=== PATIENT | male | born 1945 | race Caucasian/White ===

== ENCOUNTER 2019-07-30 01:21 | Outpatient (CLI) | payer MEDICARE, OTHER, SELFPAY ==
--- NOTE | 2019-09-08 08:35 | W.CARDEVENT ---
Cardiac Event Recorder Cardiac Event Note: This is a 30-day event monitor worn for the indication of cardiomyopathy. ?The majority of the time patient was in normal sinus rhythm with an average heart rate of 70 bpm. ?There were 9 episodes of nonsustained ventricular tachycardia. The longest run was 14 beats (150 bpm). ?Manually triggered events were associated with sinus rhythm and occasional PVCs, PACs. ?There were no episodes of supraventricular tachycardia or atrial fibrillation. ?There were no pauses greater than 3 seconds and no episodes of high degree AV block.
== END 2019-07-30 01:41 ==
PROVIDERS: PCP Family Medicine; Visit Provider Family Medicine
DX: I42.9 Cardiomyopathy, unspecified (principal); R27.0 Ataxia, unspecified; I47.2 Ventricular tachycardia; I49.3 Ventricular premature depolarization
CPT/HCPCS: 93270

== ENCOUNTER 2019-09-08 08:35 | Outpatient (CLI) | payer MEDICARE, OTHER, SELFPAY | END 2019-09-08 08:55 | PROVIDERS: PCP Family Medicine; Referring Provider Family Medicine; Visit Provider Internal Medicine Cardiovascular Disease | DX: I42.9 Cardiomyopathy, unspecified (principal); I47.2 Ventricular tachycardia; I49.3 Ventricular premature depolarization | CPT/HCPCS: 93228 ==

== ENCOUNTER 2020-06-07 16:01 | Emergency (ER) | payer MEDICARE, OTHER, SELFPAY ==
[2020-06-07] VITALS (29 sets, daily range): BP systolic 97–121; BP diastolic 50–66; PULSE 58–65; RESP 11–22; TEMP 36.5–36.6; O2SAT 90–99
--- NOTE | 2020-06-07 16:00 | RT.EKG_ITS ---
APPROVED REPORT Exam: Resting ECG Patient Location: E HR:60 bpm ECG Measurements Heart Rate 60 AXIS ND 237 P 8 QRSd 101 QRS -42 QT 451 T 30 QTc 449 <Conclusion> Sinus rhythm...normal P axis, V-rate 60- 99 Prolonged ND interval...ND >220, V-rate 50- 90 Left anterior fascicular block...axis(240,-40), init forces inf Low voltage, extremity and precordial leads...extremity<0.5mV, precordial<1.0mV I have reviewed and interpreted ECG and agree with software generated interpretation.
--- NOTE | 2020-06-07 16:15 | DI.RAD_ITS ---
EXAM: XR CHEST 2V PA LATERAL CLINICAL HISTORY: fall TECHNIQUE: 2D digital imaging was performed. COMPARISON: No exams were available for comparison FINDINGS: MEDIASTINUM: Normal. HEART: Normal. PULMONARY VASCULATURE: Normal. LUNGS: Clear. PLEURAL SPACE: No pleural effusion or pneumothorax. BONE:Normal. OTHER FINDINGS:Normal. IMPRESSION: No acute pulmonary findings. DATA REPOSITORY: RADIATION DOSE DELIVERED:
--- NOTE | 2020-06-07 16:15 | DI.CT_ITS ---
EXAM: CT HEAD CERVICAL SPINE WO CLINICAL HISTORY: fall from standing, struck back of head. TECHNIQUE: Imaging Protocol: Axial computed tomography images with coronal and sagittal reformatted images were created and reviewed COMPARISON: CT HEAD WITHOUT CONTRAST from 10/24/2013 FINDINGS: CT Head: Ventricles and Extra axial spaces: Normal in size and morphology for the patient's age. Hemorrhage: None. Cerebral parenchyma: There are areas of decreased attenuation in the white matter consistent with sma ll vessel ischemic disease. No acute territorial infarct is seen. Midline shift: None. Brainstem/Cerebellum: Normal. Calvarium: Normal. Visualized Paranasal sinuses/Mastoids: Clear. Soft Tissues: Unremarkable. CT Cervical Spine: Bones: No acute fracture or subluxation. Severe degenerative changes are seen throughout the cervical spine. Soft Tissues: Unremarkable. Lung Apices: Clear. IMPRESSION: 1. No acute intracranial process. 2. No acute fracture or subluxation in the cervical spine. RADIATION DOSE DELIVERED: Total DLP DATA REPOSITORY: All CT scans at this facility are submitted to the National Radiology Data Registry (NRDR) Dose Index Registry (DIR) with the [employer] (A[employer]). RADIATION OPTIMIZATION: All CT scans at this facility use at least one of these dose optimization te chniques: automated exposure control; mA and/or kV adjustment per patient size (includes targeted exa ms where dose is matched to clinical indication); or iterative reconstruction.
--- NOTE | 2020-06-07 16:15 | DI.RAD_ITS ---
EXAM: XR SACRUM COCCYX CLINICAL HISTORY: fall. TECHNIQUE: 2D digital imaging was performed. COMPARISON: No exams were available for comparison FINDINGS: No definite acute fracture or dislocation is identified. The bones appear normally mineralized. Degen erative changes are seen in the lower lumbar spine. If there is continued clinical concern, non-contr ast CT scan of the pelvis should be considered for further evaluation. IMPRESSION: DATA REPOSITORY: RADIATION DOSE DELIVERED:
--- NOTE | 2020-06-07 16:19 | ED.GENADUL_ITS ---
Discharge Plan Disposition Patient Disposition: HOME Condition: Good Discharge Details Chief Complaint: Trauma Clinical Impression: Closed sacral fracture Primary Care Provider: Deepa Oliva V ED Provider: Julianna Funes Home Meds and New Rx's Prescriptions: New oxycodone 5 mg tablet 5 mg PO TID PRN (Reason: pain) Qty: 10 RF: 0 Continued triamcinolone acetonide 0.1 % cream 1 applic TP BID RF: 0 fluticasone propion-salmeterol [Advair HFA] 115-21 mcg/actuation HFA aerosol inhaler 2 puff IH BID RF: 0 carvedilol 25 mg tablet 25 mg PO BID RF: 0 tamsulosin 0.4 MG capsule 0.4 mg PO BID RF: 0 omeprazole 20 MG capsule,delayed release(DR/EC) 20 mg PO DAILY AM RF: 0 aspirin [Aspir-Low] 81 MG tablet,delayed release (DR/EC) 81 mg PO DAILY AM RF: 0 [id number]-byvnr acid-lutein [Centrum Silver] 1 EACH tablet,chewable 1 tab PO DAILY AM RF: 0 albuterol sulfate [Proventil HFA] 1 PUFF HFA aerosol inhaler 2 gm Inhalation DIRECTED Qty: 1 RF: 3 albuterol sulfate 2.5 MG/3 ML solution for nebulization 2.5 mg NEB Q4H PRNRF: 0 spironolactone 25 MG tablet 25 mg PO DAILY RF: 0 furosemide [Lasix] 80 MG tablet 80 mg PO DAILY RF: 0 lisinopril [Prinivil] 5 MG tablet 5 mg PO DAILY RF: 0 fluoxetine 20 MG capsule 20 mg PO DAILY RF: 0 ascorbic acid (vitamin C) [Vitamin C With Dejah Hips] 1,000 MG tablet 1 tab PO PRN PRNRF: 0 saw palmetto 500 MG capsule 450 mg PO PRN PRNRF: 0 vitamin B comp with C no.4 [Super B Complex + C] 150 MG tablet 1 tab PO PRN PRNRF: 0 pravastatin 40 MG tablet 40 mg PO QPM RF: 0 fluticasone propion-salmeterol [Advair HFA] 12 GM HFA aerosol inhaler 2 puff Inhalation BID RF: 0 oxycodone 5 MG tablet 5 mg PO Q6H PRNRF: 0 cyclobenzaprine 10 MG tablet 10 mg PO HS RF: 0 magnesium oxide 400 MG tablet 400 mg PO DAILY Qty: 30 RF: 0 cyanocobalamin (vitamin B-12) 1,000 MCG tablet 1,000 mcg PO DAILY Qty: 100 RF: 0 levothyroxine [Synthroid] 25 MCG tablet 50 mcg PO DAILY Qty: 30 RF: 0 cyanocobalamin (vitamin B-12) 1,000 mcg/mL Solution 1,000 mcg SUBCUT QMONTH RF: 0 metformin 500 mg tablet extended release 24 hr 500 mg PO DAILY PRN PRNRF: 0 Discharge Instructions Instructions: Sacral Fracture (ED) Additional Instructions: Encourage water intake. Gentle stretching. Please avoid heavy lifting. Tylenol and/or ibuprofen as needed for discomfort. Oxycodone as prescribed. Please not drive will take this medication. Use only as needed. If you develop fever/chills, sensation changes, weakness, change in bladder or bowel function or other new/worsening symptom please seek care urgently once again. Otherwise, please contact your primary care tomorrow to schedule follow-up for reevaluation in 1 week. Referrals: Deepa Oliva MD [Primary Care Provider] - Discharge Data Discharge Date/Time-TO BE ENTERED AT DEPARTURE: 06/07/20 19:55 Medical Decision Making Patient is a pleasant 74-year-old gentleman presenting today with chief complaint of fall. States that prior to arrival he suffered a mechanical fall. He reports that he was standing in his kitchen when he turned quickly, lost his balance and fell striking his head against the cabinets. States his primary source of discomfort is his tailbone. He believes that he may have lost consciousness and is endorsing a mild headache. Is also endorsing neck pain, c- collar was placed by nursing staff. Does not note any weakness. Did have difficulty getting out of the car secondary to pain in his tailbone. However, he was able to ambulate to the car unassisted. He denies any chest pain, nausea, vomiting, abdominal pain. Patient is not anticoagulated. He is on aspirin. Past medical history significant for COPD, hypertension, BPH, hyperlipidemia, diabetes, CAD, CHF. On exam, patient's laying supine, in a c-collar. He appears anxious. He has no head trauma on palpation or exam, no pain to palpation. Neurologic exam is intact. No chest, abdomen, pelvic discomfort with palpation. Sensation is intact, no saddle paresthesias. Is good strength in his lower extremities, equal bilaterally. Negative straight leg raise bilaterally. Patient has no midline tenderness on my cervical exam but did have this on nursing exam. Will obtain CT of head and neck for further evaluation. No pain with palpation over the thoracic or lumbar spine. Patient is exquisitely tender over the coccyx. Sensation is intact over this area as well as sensation over the rectum. Will obtain x-rays of these areas. CT reviewed by radiologist: FINDINGS: Brain: Global cerebral atrophy is consistent with patient's age. Decreased attenuation within the white matter tracts of both cerebral hemispheres is nonspecific but typically seen with small vessel disease/chronic white matter ischemic changes of aging. No intracranial hemorrhage or mass effect. No acute stroke. Ventricles: Unremarkable. No ventriculomegaly. Bones/joints: Unremarkable. No acute fracture. Sinuses: Visualized sinuses are unremarkable. No fluid levels. Mastoid air cells: Visualized mastoid air cells are well aerated. Soft tissues: Unremarkable. IMPRESSION: No acute abnormality. FINDINGS: Vertebrae: No fracture or subluxation is identified. The facet joints are intact. Discs/Spinal canal/Neural foramina: Degenerative disc disease and facet arthrosis is present throughout the cervical spine. No bony spinal stenosis is identified. Soft tissues: Unremarkable. Lungs: Lung apices are clear. IMPRESSION: No fracture or subluxation. Delay in x-ray, chose to wait for CT results prior to getting patient up. With the CT without abnormality, clnically examed the patient. He is now denying any midline pain, no pain with ROM of cervical spine, collar cleared. FINDINGS/IMPRESSION: There is a very subtle cortical step-off deformity at the proximal aspects of the sacrum which could be anatomical versus related to a minimally displaced fracture. And additional cortical step-off deformity is also appreciated at the distal aspects of the sacrum with an associated linear lucency traversing the sacral vertebra, highly concerning for a distal sacral/coccygeal fracture at this level. Consider further evaluation with noncontrast pelvic CT. No other acutely displaced fractures are appreciated. No significant soft tissue swelling FINDINGS: Lungs: Unremarkable. No consolidation. Pleural space: Unremarkable. No pleural effusion. No pneumothorax. Heart/Mediastinum: Unremarkable. No cardiomegaly. Bones/joints: No acute abnormality or aggressive osseous lesion. IMPRESSION: Negative for acute thoracic pathology. I did go out multiple times to speak with the patient's , Ailyn, kept her updated. She did witness the fall. States that he initially sat on his bottom then hit his head on the kitchen cabinet. Reinforces mechanical fall. She does not believe he lost consciousness, rather feels that he was dazed for a moment, she did not notice a lapse in mentation. Discussed fidnings with the patient. At this time, he wants to go home. He is feeling much improved. As a nondisplaced fracture would not change our management at this time, will hold off on CT. Salvador diagnosed with fracture. He is ambulating well about the [facility] with minimal discomfort. Discussed with patient and his . She is going ot pick him up a donus pillow. We discussed pain management. He received QHS PRN oxycodone which works well for him. She states he rarely uses this medication, will prescribe short course as he is almost out. We discussed risks of this medication. He will not drive while taking this. He will first try non-narcotic options for pain control. I encouraged light movement. We discussed pain management techniques. I advised close f/u with PCP this week for reevaluation. He was given strict return precautions. All of their quesitons and concerns were addressed, they are in agreement iwth this plan. HPI General Mode of arrival: wheelchair . Date/Time Provider Initiated Documentation: 06/07/20 16:02 . Limitations to Documentation: no limitations . Information obtained by: patient and RN notes reviewed . History of Present Illness 74 year old M presents to the emergency department with the chief complaint of Pain after fall, described as severe, Quality is described as aching, and is localized to the head, neck and buttocks. Patient reports no radiation. Patient started experiencing this minute(s) and it has been constant. Immobilization improves symptom(s), Movement worsens symptoms . Patient notes chest pain and headaches; denies cough, fever/chills, loss of appetite, nausea/vomiting, rash, shortness of breath, syncope (Prior to the mechanical fall but did suffer loss of consciousness) and weakness. Patient did receive the following treatments prior to arrival, none Related Data Home Medications Medication Instructions Recorded Confirmed albuterol sulfate [Proventil HFA] 2 gm INHALATION DIRECTED #1 inh 09/01/13 06/07/20 aspirin [Aspir-Low] 81 mg PO DAILY AM 09/01/13 06/07/20 gn-ebo-cazha acid-lutein [Centrum 1 tab PO DAILY AM 09/01/13 06/21/17 Silver] omeprazole 20 mg PO DAILY AM 09/01/13 06/07/20 tamsulosin 0.4 mg PO BID 09/01/13 06/07/20 albuterol sulfate 2.5 mg NEB Q4H PRN 10/21/13 06/07/20 furosemide [Lasix] 80 mg PO DAILY 11/11/13 06/07/20 lisinopril [Prinivil] 5 mg PO DAILY 11/11/13 06/07/20 spironolactone 25 mg PO DAILY 11/11/13 06/07/20 fluoxetine 20 mg PO DAILY 12/09/14 06/07/20 ascorbic acid (vitamin C) [Vitamin 1 tab PO PRN PRN 01/21/15 06/07/20 C With Dejah Hips] saw palmetto 450 mg PO PRN PRN 01/21/15 06/21/17 vitamin B comp with C no.4 [Super 1 tab PO PRN PRN 01/21/15 06/21/17 B Complex + C] cyanocobalamin (vitamin B-12) 1,000 mcg PO DAILY #100 tablet 03/28/17 06/07/20 cyclobenzaprine 10 mg PO HS 03/28/17 06/07/20 fluticasone propion-salmeterol 2 puff INHALATION BID 03/28/17 06/21/17 [Advair HFA] levothyroxine [Synthroid] 50 mcg PO DAILY #30 03/28/17 06/07/20 magnesium oxide 400 mg PO DAILY #30 tab 03/28/17 06/21/17 oxycodone 5 mg PO Q6H PRN 03/28/17 06/07/20 pravastatin 40 mg PO QPM 03/28/17 06/07/20 carvedilol 25 mg tablet 25 mg PO BID 08/22/18 06/07/20 fluticasone propionate 115 2 puff IH BID 08/22/18 08/22/18 mcg-salmeterol 21 mcg/actuation HFA inhaler triamcinolone acetonide 0.1 % 1 applic TP BID 08/22/18 06/07/20 topical cream cyanocobalamin (vitamin B-12) 1,000 mcg SUBCUT QMONTH 06/07/20 06/07/20 metformin 500 mg PO DAILY PRN PRN 06/07/20 06/07/20 oxycodone 5 mg PO TID PRN #10 tab 06/07/20 Previous Rx's Medication Instructions Recorded albuterol sulfate [Proventil HFA] 2 gm INHALATION DIRECTED #1 inh 09/01/13 cyanocobalamin (vitamin B-12) 1,000 mcg PO DAILY #100 tablet 03/28/17 levothyroxine [Synthroid] 50 mcg PO DAILY #30 03/28/17 magnesium oxide 400 mg PO DAILY #30 tab 03/28/17 oxycodone 5 mg PO TID PRN #10 tab 06/07/20 Allergies Allergy/AdvReac Type Severity Reaction Status Date / Time Penicillins Allergy Severe Anaphylaxsi Unverified 06/07/20 16:14 s donepezil [From Aricept] Allergy Mild mild per Unverified 06/07/20 17:03 pcp chart adenosine Allergy Unverified 06/07/20 16:14 metformin [From Glucophage] Allergy per pcp Unverified 06/07/20 17:03 chart--moderate codeine AdvReac Intermediate Dizziness/L Unverified 06/07/20 16:14 ightheade General Stated Complaint: Trauma DANIEL: 2 Review of Systems Constitutional Constitutional: Reports as per HPI, Denies chills, Denies fatigue, Denies fever(s), Reports headache(s) and Denies weakness Eyes Eyes: Reports as per HPI, Denies blurry vision, Denies change in vision and Denies loss of vision ENT Ears, Nose, Mouth, and Throat: Denies abnormal hearing and Reports headache(s) Cardiovascular Cardiovascular: Reports as per HPI, Denies chest pain and Denies dyspnea Respiratory Respiratory: Reports as per HPI, Denies cough, Denies pain on inspiration, Denies pain with cough and Denies dyspnea Gastrointestinal Gastrointestinal: Reports as per HPI, Denies abdominal pain, Denies nausea and Denies vomiting Genitourinary Genitourinary: Reports as per HPI and Denies urinary incontinence Musculoskeletal Musculoskeletal: Reports as per HPI and Reports abnormal gait (states severe pain in tailbone with ambulation) Integumentary/Breasts Skin/Breast: Reports as per HPI and Denies rash Neurologic Neurologic: Reports as per HPI, Denies abnormal hearing, Denies abnormal movements, Denies abnormal speech, Reports abnormal gait (states severe pain in tailbone with ambulation), Reports headache(s), Denies lack of coordination, Denies localized weakness, Denies loss of vision, Denies seizure-like activity, Denies paresthesias and Denies weakness Endocrine Endocrine: Denies fatigue [facility] Medical History (Updated 06/07/20 @ 19:49 by BEKAH Plasencia) Mena's palsy CAD (coronary artery disease) Cardiomyopathy CHF (congestive heart failure) COPD (chronic obstructive pulmonary disease) DM (diabetes mellitus) HTN (hypertension) Hypothyroidism ORLIN (obstructive sleep apnea) Renal insufficiency Surgical History (Updated 08/09/16 @ 10:14 by Beatriz Alatorre) Appendectomy Colonoscopy - MAC (08/04/16) Family History (Updated 07/14/16 @ 15:00 by BEKAH Sandoval) Father No problems noted. Other Colon cancer Social History (Updated 08/22/18 @ 15:42 by Emilie Salmon LPN) Smoking/Tobacco Use Status: Former Tobacco Use Drug use: Never Do you feel safe in your relationship?: Yes Exam Const General: cooperative, healthy appearing, uncomfortable, no acute distress, well developed, well groomed and anxious Nutritional Appearance: well nourished and overweight Orientation: alert, awake and oriented x3 HENMT Head: normal to inspection, no palpable skull fracture, normocephalic and atraumatic Ears: hearing grossly normal bilaterally, external ears normal and TM's normal bilaterally General nose exam: external nose normal Face and sinus: normal facial exam Mouth: oral mucosae normal, lip normal and tongue normal Throat: posterior oropharynx normal Eyes General: appearance normal, both eyes and all related structures Visual Howard: normal visual howard by confrontation Alignment and Position: alignment normal Periorbital: periorbital findings normal Eyelids: eyelids normal Conjunctivae: conjunctivae normal Pupils: PERRL EOM: EOM intact bilaterally Neck Neck: normal visual inspection, limited ROM (patient in collar), no lymphadenopathy, trachea midline and supple Chest Chest: normal inspection of the chest, normal palpation of entire chest wall, no crepitus and no localized rib tenderness Resp Effort & Inspection: normal respiratory effort, able to speak in complete sentences and no respiratory distress Auscultation: clear to auscultation bilaterally, no rales, no rhonchi and no wheezes Cardio Rate: regular rate Rhythm: regular rhythm Heart Sounds: S1 normal and S2 normal GI Inspection: normal to inspection, no abdominal wall ecchymosis, no edema and non-distended Palpation: soft, no hepatosplenomegaly, not firm, no guarding, no pulsatile masses, not rigid and nontender Auscultation: normal bowel sounds Rectal Exam: visual inspection normal (sensation normal, wink intact) Back/Spine/Pelvis Back: no CVA tenderness Cervical Spine: normal cervical lordosis and cervical ROM normal Thoracic/Lumbar Spine: thoracic and lumbar spine normal to inspection, No thor aco-lumbar spasm, No thoracic spinal tenderness and No lumbar spinal tenderness Pelvis: no pain with anterior-posterior compression and no pain with lateral compression Sacroiliac joints: bilaterally nontender Sacrum: no ecchymosis, no erythema, no swelling and tenderness midline (inferior) Coccyx: no swelling and tenderness on direct palpation Skin General skin exam: no rashes or lesions noted Lesions: no lesions Rashes: no rashes Trauma: no lacerations or abrasions Wounds: no wounds Neuro General: patient alert, patient awake, patient oriented x3, gait normal, tone normal and moves all extremities Cranial Nerves: CN's II-XI intact bilaterally Cognition: normal cognition Speech: speech normal Motor: muscle tone normal throughout, strength 5/5 throughout, no pronator drift, no movement abnormalities noted and no fasciculations Sensory Exam: no sensory deficits noted (no saddle paresthesias) Coordination: glcwax-nm-cswj test normal Extrem General: normal to inspection, full ROM, capillary refill normal, no pedal edema and no calf tenderness Psych Appearance: grossly normal and well kempt Mental Status: mental status grossly normal Speech and Movement: speech and movement normal Course Vital Signs Vital signs: Vital Signs Temperature 36.5 C 06/07/20 16:08 Pulse 64 06/07/20 16:08 Respiratory Rate 20 06/07/20 16:08 Pulse Oximetry 96 06/07/20 16:08 Temperature 36.5 C 06/07/20 16:08 Temperature Source Temporal Artery Scan 06/07/20 16:08 Pulse 64 06/07/20 16:08 Respiratory Rate 20 07/20/20 16:08 Respiratory Effort Non-Labored 06/07/20 16:12 Blood Pressure Position Supine 06/07/20 16:08 Pulse Oximetry 96 06/07/20 16:08 Oxygen Delivery Method Room Air 06/07/20 16:08 Oxygen Flow Rate 0 06/07/20 16:08
[2020-06-07 16:37] LABS: Abs Immature Grans 0.01 k/cumm (0.0-0.09); Absolute Basophil Count 0.01 k/cumm (0.0-0.2); Absolute Eosinophil Count 0.13 k/cumm (0.0-0.7); Absolute Lymphocyte Count 1.85 k/cumm (1.2-3.4); Absolute Monocyte Count 0.88 k/cumm (0.11-0.7); Absolute Neutrophil Count 4.48 k/cumm (1.2-6.7); Basophils % 0.1; Eosinophils % 1.8; HCT 38.8 % (40.0-50.0); HGB 13.2 g/dL (13.5-17.5); Immature Grans % 0.1 %; Lymphocytes % 25.1; Mean Platelet Volume 10.1 fL (8.0-11.0); Neutrophils % 60.9; Platelet Count 216 x1000/uL (130-400); RBC Distribution Width 12.5 % (11.8-14.1); White Blood Cell Count 7.36 k/cumm (4.4-10.8)
[2020-06-07] MEDS: ACETAMINOPHEN 1,000 MG/100 ML BTL 400 MG IVPB (16:38)
[2020-06-07] MEDS: Normal Saline Flush 10 ML SYR IVP (16:39)
[2020-06-07] MEDS: Lactated Ringers 1,000 ML 150 ML IV (16:39)
[2020-06-07 16:51] LABS: PTT Activated 23.2 sec (21.0-31.4); Prothrombin Time 10.1 sec (9.3-11.0)
[2020-06-07 16:58] LABS: ALT 42 U/L (16-63); AST 31 U/L (15-37); Albumin 3.9 g/dL (3.4-5.0); Alkaline Phosphatase 72 U/L (46-116); Anion Gap 9.6 mmol/L (3-11); BUN 22 mg/dL (7-18); Bilirubin, Total 0.5 mg/dL (0.2-1.0); CO2 28.4 mmol/L (21.0-32.0); CREATININE 1.21 mg/dL (0.70-1.30); Calcium 9.4 mg/dL (8.5-10.1); Chloride 101 mmol/L (98-107); Estimated GFR 58.46 (mL/min/1.73m2); Glucose 136 mg/dL (74-106); Sodium 139 mmol/L (136-145); Total Protein 7.3 g/dL (6.4-8.2)
[2020-06-07 16:59] LABS: Troponin I < 0.05 ng/mL (<0.06)
--- NOTE | 2020-06-07 17:51 | DI.VRAD_ITS ---
PROCEDURE INFORMATION: Exam: CT Head Without Contrast Exam date and time: 06/07/2020 4:22 PM Age: 74 years old Clinical indication: Other: Fall from standing struck back of head TECHNIQUE: Imaging protocol: Computed tomography of the head without contrast. COMPARISON: CT HEAD WITHOUT CONTRAST 10/24/2013 11:11 AM FINDINGS: Brain: Global cerebral atrophy is consistent with patient's age. Decreased attenuation within the white matter tracts of both cerebral hemispheres is nonspecific but typically seen with small vessel disease/chronic white matter ischemic changes of aging. No intracranial hemorrhage or mass effect. No acute stroke. Ventricles: Unremarkable. No ventriculomegaly. Bones/joints: Unremarkable. No acute fracture. Sinuses: Visualized sinuses are unremarkable. No fluid levels. Mastoid air cells: Visualized mastoid air cells are well aerated. Soft tissues: Unremarkable. IMPRESSION: No acute abnormality. PROCEDURE INFORMATION: Exam: CT Cervical Spine Without Contrast Exam date and time: 06/07/2020 4:22 PM Age: 74 years old Clinical indication: Other: Fall from standing struck back of head TECHNIQUE: Imaging protocol: Computed tomography images of the cervical spine without contrast. COMPARISON: CT HEAD WITHOUT CONTRAST 10/24/2013 11:11 AM FINDINGS: Vertebrae: No fracture or subluxation is identified. The facet joints are intact. Discs/Spinal canal/Neural foramina: Degenerative disc disease and facet arthrosis is present throughout the cervical spine. No bony spinal stenosis is identified. Soft tissues: Unremarkable. Lungs: Lung apices are clear. IMPRESSION: No fracture or subluxation. Dictated and Authenticated by: Monroe Marte MD. Ordering:LAVELL Levine MD
--- NOTE | 2020-06-07 19:05 | DI.VRAD_ITS ---
PROCEDURE INFORMATION: Exam: XR Sacrum and Coccyx, 2 or More Views Exam date and time: 06/07/2020 6:28 PM Age: 74 years old Clinical indication: Other: Fall TECHNIQUE: Imaging protocol: XR of the sacrum and coccyx, 2 or more views. COMPARISON: No relevant prior studies available. FINDINGS/IMPRESSION: There is a very subtle cortical step-off deformity at the proximal aspects of the sacrum which could be anatomical versus related to a minimally displaced fracture. And additional cortical step-off deformity is also appreciated at the distal aspects of the sacrum with an associated linear lucency traversing the sacral vertebra, highly concerning for a distal sacral/coccygeal fracture at this level. Consider further evaluation with noncontrast pelvic CT. No other acutely displaced fractures are appreciated. No significant soft tissue swelling. Dictated and Authenticated by: Pan Gutiérrez MD. Ordering:LAVELL Levine MD
--- NOTE | 2020-06-07 19:07 | DI.VRAD_ITS ---
PROCEDURE INFORMATION: Exam: XR Chest, 2 Views Exam date and time: 06/07/2020 6:40 PM Age: 74 years old Clinical indication: Other: Fall TECHNIQUE: Imaging protocol: XR of the chest Views: 2 views. COMPARISON: SC PORTABLE CHEST ONE VIEW 03/27/2017 6:42 PM FINDINGS: Lungs: Unremarkable. No consolidation. Pleural space: Unremarkable. No pleural effusion. No pneumothorax. Heart/Mediastinum: Unremarkable. No cardiomegaly. Bones/joints: No acute abnormality or aggressive osseous lesion. IMPRESSION: Negative for acute thoracic pathology. Dictated and Authenticated by: Pan Gutiérrez MD. Ordering:LAVELL Levine MD
== END 2020-06-07 19:55 | disposition home or self-care (01) ==
LOC: ER 20:04
PROVIDERS: Emergency Provider Physician Assistant; PCP Family Medicine
DX: S32.19XA Other fracture of sacrum, initial encounter for closed fracture (principal); W01.198A Fall on same level from slipping, tripping and stumbling with subsequent striking against other object, initial encounter; Y92.000 Kitchen of unspecified non-institutional (private) residence as the place of occurrence of the external cause; R51 Headache; J44.9 Chronic obstructive pulmonary disease, unspecified; Z87.891 Personal history of nicotine dependence; E11.9 Type 2 diabetes mellitus without complications; Z79.84 Long term (current) use of oral hypoglycemic drugs; I11.0 Hypertensive heart disease with heart failure; I50.9 Heart failure, unspecified
CPT/HCPCS: 80053; 93005; 96374; 99285; 70450; 71046; 72125; 72220; 83735; 84484; 85025; 85610; 85730; 93010; 99284; J0131; L0172

== ENCOUNTER 2020-06-13 18:44 | Emergency (ER) | payer MEDICARE, OTHER, SELFPAY ==
--- NOTE | 2020-06-16 07:45 | NUR.NOTE ---
Nursing Note: Patient transferred last night to [facility]. They called this morning requesting the 26 and 20 records. They want to review prior to giving the patient heparin. I faxed the provider notes and DI reports from that visit. Disha Valdez
== END 2020-06-13 18:55 ==
LOC: ER 18:46
PROVIDERS: PCP Family Medicine
DX: Z53.21 Procedure and treatment not carried out due to patient leaving prior to being seen by health care provider (principal)

== ENCOUNTER 2020-06-13 18:49 | Observation (INO) | payer MEDICARE, OTHER, SELFPAY ==
[2020-06-13] VITALS (41 sets, daily range): BP systolic 94–135; BP diastolic 47–79; PULSE 61–75; RESP 10–22; TEMP 35.3; O2SAT 93–99
--- NOTE | 2020-06-13 18:45 | RT.EKG_ITS ---
APPROVED REPORT Exam: Resting ECG Patient Location: E HR:61 bpm ECG Measurements Heart Rate 61 AXIS ID 201 P -41 QRSd 103 QRS -46 QT 459 T 14 QTc 461 <Conclusion> Sinus rhythm...normal P axis, V-rate 60- 99 Left anterior fascicular block...axis(240,-40), init forces inf Low voltage, extremity and precordial leads...extremity<0.5mV, precordial<1.0mV Anteroseptal infarct, old...Q >40mS, V1-V2 Abnormal Electrocardiogram
--- NOTE | 2020-06-13 19:00 | DI.CT_ITS ---
EXAM: CT CHEST PE CTA CLINICAL HISTORY: chest pain, left. TECHNIQUE: Imaging Protocol: Axial CT angiography was performed with multi-slice acquisition and mu lti-planar and/or 3D reconstructions. CONTRAST MATERIAL: Intravenous: Omnipaque 350 Contrast volume:83 ml COMPARISON: CT CHEST FOR PULMONARY EMBOLUS from 03/27/2017 FINDINGS: Pulmonary Arteries: No evidence of filling defect to suggest pulmonary emboli. Tracheobronchial tree: Patent where visualized. Mediastinum and Colleen: No dominant adenopathy or fluid collection. Pulmonary parenchyma: No consolidation. Stable 7 millimeter right upper lobe nodule. Dependent hilarai nges posteriorly. Pleura: No effusion or pneumothorax. Heart: The heart is not dilated. Mild coronary artery calcifications are seen. Aorta: Thoracic aorta non-dilated. Upper abdomen: Unremarkable. Bones: Degenerative changes in the spine. IMPRESSION: No evidence of pulmonary embolism or other acute abnormality.. RADIATION DOSE DELIVERED: Total DLP DATA REPOSITORY: All CT scans at this facility are submitted to the National Radiology Data Registry (NRDR) Dose Index Registry (DIR) with the [employer] (ACR). RADIATION OPTIMIZATION: All CT scans at this facility use at least one of these dose optimization te chniques: automated exposure control; mA and/or kV adjustment per patient size (includes targeted exa ms where dose is matched to clinical indication); or iterative reconstruction.
[2020-06-13 19:07] LABS: Abs Immature Grans 0.01 k/cumm (0.0-0.09); Absolute Basophil Count 0.01 k/cumm (0.0-0.2); Absolute Eosinophil Count 0.17 k/cumm (0.0-0.7); Absolute Lymphocyte Count 1.14 k/cumm (1.2-3.4); Absolute Monocyte Count 0.71 k/cumm (0.11-0.7); Absolute Neutrophil Count 6.94 k/cumm (1.2-6.7); Basophils % 0.1; Eosinophils % 1.9; HCT 41.2 % (40.0-50.0); HGB 13.9 g/dL (13.5-17.5); Immature Grans % 0.1 %; Lymphocytes % 12.7; Mean Corp. HGB Concentration 33.7 g/dL (32.0-36.0); Mean Corpuscular Hemoglobin 32.6 pg (27.0-33.0); Mean Corpuscular Volume 96.7 fL (80-95); Mean Platelet Volume 9.9 fL (8.0-11.0); Monocytes % 7.9; Neutrophils % 77.3; Platelet Count 206 x1000/uL (130-400); RBC 4.26 m/cumm (4.50-6.00); RBC Distribution Width 12.4 % (11.8-14.1); White Blood Cell Count 8.98 k/cumm (4.4-10.8)
--- NOTE | 2020-06-13 19:09 | W.ED.GENAD ---
Discharge Plan Disposition Patient Disposition: [facility] INPATIENT Condition: Good Discharge Details Chief Complaint: Chest Pain Clinical Impression: Chest pain Admit Date/Time: 06/13/20 22:30 Admit Provider: Aziza Arias Attending Provider: Aziza Arias Primary Care Provider: Deepa Oliva V ED Provider: Reji Byrnes Hospital Course Hospital Course: 74 year old male with PMHx of CAD s/p 2 prior cardiac caths (last one in 2012 at [facility] with clean coronary arteries, no stents in place), as well as h/o biventricular heart failure with latest EF of 56% in 2018 (from 15% in 2013), 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 The pain was accompanied by feeling of weakness/fatigue, dizziness, shortness of breath, nausea, dry heaves, and diaphoresis. The patient is not sure about palpitations. Nitroglycerin given in the ED relieved the pain completely. Serial troponins have been negative, his EKG shows left anterior fascicular block, unchanged from prior. Of note, on 06/07/2020, the patient was in our ED following a fall, which he now states was accompanied by loss of consciousness. He did hit his head at the time and reports an ongoing headache since then. He was diagnosed with sacral fracture. While in the hospital PT has evaluated the patient and feels he could benefit from PT at home. He has never had a neurology evaluation for falls, he did not have dizziness, or lightheadedness but he did have a positive romberg. He should be evaluated by neurology as an outpatient. Cardiac work up was not revealing echo: Conclusion Normal left ventricular wall thickness and chamber size. Estimated ejection fraction is 55%. There are no segmental wall motion abnormalities Right ventricle is normal in size and systolic function Both atria are normal in size Mildly sclerotic trileaflet aortic valve without regurgitation or stenosis Tricuspid valve is structurally normal with trace regurgitation. Estimated right ventricular systolic pressure is normal at 26 mmHg Mild mitral annular calcification. No mitral regurgitation Normal pulmonic valve Trivial pericardial effusion NPI conclusion Calculated EF by this technique was 35% There is a small area of decreased apical and anteroapical uptake with stress which partially redistributes suggesting ischemia No significant areas of infarction He has been chest pain free since admission. [facility] consulted regarding patient results, it is recommend he be transferred to [facility] for cardiac cath given change in NPI and concern for ischemia. Accepting is Dr. Grider Awaiting bed placement at this time. He denies CP, SOB, at this time he does need to be heparinized but if anything changes contact [facility] immediately. Discharge Instructions Instructions: Chest Pain (DC) Additional Instructions: Transfer to [facility] for cardiac catherization Referrals: Jillian Julio MD [ [facility] STAFF PHYSICIAN] - (Recurring falls, recent with sacral fracture and positive romberg by PT) Discharge Data Discharge Date/Time-TO BE ENTERED AT DEPARTURE: 06/13/20 23:30 Medical Decision Making 1936??74-year-old male with multiple medical problems including history of COPD on home O2, hypertension, hyperlipidemia, diabetes, coronary artery disease, CHF, here with chest pain since noon. Patient is hemodynamically stable. He is saturating well in no respiratory distress but does have shortness of breath. Consider ACS. Screening ECG was reviewed and interpreted by me. Please see report. No STEMI. Will check troponin. Patient was given nitroglycerin 0.4 mg and noted significant improvement in pain. Blood pressure did decrease. Consider pulmonary embolism. Plan to obtain CT of the chest. Given shortness of breath, history of CHF, concern for ACS with now shortness of breath and also with concern for pulmonary embolism potential prognostic indicator, I will check BNP. --Patient reassessed and resting comfortably. Continues to have low normal blood pressure which is his baseline per patient. --CT interpreted by radiology:IMPRESSION: No evidence of pulmonary embolism or consolidation pneumonia. Initial troponin negative. Plan to hospitalize for ACS rule out. HPI General Mode of arrival: ambulatory. Date/Time Provider Initiated Documentation: 06/13/20 18:49. Limitations to Documentation: no limitations. Information obtained by: patient. HPI Narrative: 74-year-old male with multiple medical problems including history of COPD on home O2, hypertension, hyperlipidemia, diabetes, coronary artery disease, CHF, presents with chief complaint of chest pain. Patient notes pain started around 12 noon today and has been persistent and constant since onset. Pain is localized to his anterior left chest and radiates laterally. Pain is slightly worse with deep inspiration. Pain is currently moderate intensity. Patient notes chronic unchanged shortness of breath. No leg swelling or calf pain. No recent long distance travel. No fevers or cough. Patient had some associated nausea with dry heaving just prior to arrival. Related Data Home Medications Medication Instructions Recorded Confirmed Centrum Silver 1 tab PO DAILY AM 09/01/13 06/13/20 albuterol sulfate [Proventil HFA] 2 gm INHALATION DIRECTED #1 inh 09/01/13 06/13/20 aspirin [Aspir-Low] 81 mg PO DAILY AM 09/01/13 06/13/20 omeprazole 20 mg PO DAILY AM 09/01/13 06/13/20 tamsulosin 0.4 mg PO BID 09/01/13 06/13/20 albuterol sulfate 2.5 mg NEB Q4H PRN 10/21/13 06/13/20 furosemide [Lasix] 80 mg PO DAILY 11/11/13 06/13/20 lisinopril [Prinivil] 5 mg PO DAILY 11/11/13 06/13/20 spironolactone 25 mg PO DAILY 11/11/13 06/13/20 fluoxetine 20 mg PO DAILY 12/09/14 06/13/20 Super B Complex + C 1 tab PO PRN PRN 01/21/15 06/13/20 ascorbic acid (vitamin C) [Vitamin 1 tab PO PRN PRN 01/21/15 06/13/20 C With Dejah Hips] saw palmetto 450 mg PO PRN PRN 01/21/15 06/13/20 cyanocobalamin (vitamin B-12) 1,000 mcg PO DAILY #100 tablet 03/28/17 06/13/20 cyclobenzaprine 10 mg PO HS 03/28/17 06/13/20 levothyroxine [Synthroid] 50 mcg PO DAILY #30 03/28/17 06/13/20 magnesium oxide 400 mg PO DAILY #30 tab 03/28/17 06/13/20 oxycodone 5 mg PO Q6H PRN 03/28/17 06/13/20 pravastatin 40 mg PO QPM 03/28/17 06/13/20 carvedilol 25 mg tablet 25 mg PO BID 08/22/18 06/13/20 fluticasone propionate 115 2 puff IH BID 08/22/18 06/13/20 mcg-salmeterol 21 mcg/actuation HFA inhaler triamcinolone acetonide 0.1 % 1 applic TP BID 08/22/18 06/13/20 topical cream cyanocobalamin (vitamin B-12) 1,000 mcg SUBCUT QMONTH 06/07/20 06/13/20 metformin 500 mg PO DAILY PRN PRN 06/07/20 06/13/20 omega 1-tss-key-fish oil 4,000 mg PO DAILY #120 cap 06/14/20 Previous Rx's Medication Instructions Recorded albuterol sulfate [Proventil HFA] 2 gm INHALATION DIRECTED #1 inh 09/01/13 cyanocobalamin (vitamin B-12) 1,000 mcg PO DAILY #100 tablet 03/28/17 levothyroxine [Synthroid] 50 mcg PO DAILY #30 03/28/17 magnesium oxide 400 mg PO DAILY #30 tab 03/28/17 omega 0-ujl-aiv-fish oil 4,000 mg PO DAILY #120 cap 06/14/20 Allergies Allergy/AdvReac Type Severity Reaction Status Date / Time Penicillins Allergy Severe Anaphylaxsi Unverified 06/13/20 19:02 s donepezil [From Aricept] Allergy Mild mild per Unverified 06/13/20 19:02 pcp chart adenosine Allergy Unverified 06/13/20 23:02 metformin [From Glucophage] Allergy per pcp Unverified 06/13/20 19:02 chart--moderate codeine AdvReac Intermediate Dizziness/L Unverified 06/13/20 19:02 ightheade General Stated Complaint: Chest Pain DANIEL: 3 Review of Systems All systems reviewed & are unremarkable except as noted in HPI and below Constitutional Constitutional: Denies fever(s) Cardiovascular Cardiovascular: Reports as per HPI, Reports chest pain and Reports dyspnea Respiratory Respiratory: Reports dyspnea Gastrointestinal Gastrointestinal: Denies abdominal pain [facility] Medical History (Updated 06/14/20 @ 14:12 by Sharon Ivey NP) Apical mural thrombus (Acute) Atrial fib/flutter, transient (Acute) Mena's palsy BPH (benign prostatic hyperplasia) (Chronic) CAD (coronary artery disease) Cardiomyopathy CHF (congestive heart failure) COPD (chronic obstructive pulmonary disease) DM (diabetes mellitus) HTN (hypertension) Hypothyroidism Obesity (BMI 30.0-34.9) (Acute) ORLIN (obstructive sleep apnea) Pulmonary hypertension (Acute) Renal insufficiency Surgical History (Updated 06/13/20 @ 21:44 by Aziza Arias MD) Appendectomy Colonoscopy - MAC (08/04/16) Hx of cardiac cath (Inactive) in [place] in the s - unknown intervention [facility] 2013 - clean coronaries, severe pulmonary hypertension, no prior stent found Family History (Updated 06/13/20 @ 23:01 by Aziza Arias MD) Mother Cervical cancer Other Colon cancer Social History Smoking/Tobacco Use Status: Former Tobacco Use Drug use: Never Details: states he has increased his alcohol use recently due to the heat Do you feel safe at home: Yes Do you feel safe in your relationship?: Yes Exam Const General: cooperative Nutritional Appearance: obese Orientation: alert and awake HENMT Mouth: moist mucous membranes Eyes Conjunctivae: normal conjunctivae Sclera: normal sclerae Neck Neck: trachea midline and supple Resp Effort & Inspection: able to speak in complete sentences Auscultation: clear to auscultation bilaterally, no rales, no rhonchi and no wheezes Other: Patient is on oxygen nasal cannula Cardio Jugular venous pressure: no JVD Rate: regular rate and not tachycardic Rhythm: regular rhythm GI Palpation: soft, not firm, no guarding, no masses, not rigid and nontender Skin General skin exam: no rashes or lesions noted Neuro General: patient alert, patient awake, patient oriented x3 and tone normal Extrem General: no calf tenderness and no edema Psych Appearance: grossly normal Mental Status: mental status grossly normal Speech and Movement: speech and movement normal Course Vital Signs Vital signs: Vital Signs Pulse 65 06/13/20 18:52 Respiratory Rate 16 06/13/20 18:52 Blood Pressure 125/79 06/13/20 18:52 Pulse Oximetry 95 06/13/20 18:52 Pulse 65 06/13/20 18:52 Respiratory Rate 16 06/13/20 18:52 Blood Pressure 125/79 06/13/20 18:52 Pulse Oximetry 95 06/13/20 18:52 Oxygen Delivery Method Nasal Cannula 06/13/20 18:52 Oxygen Flow Rate 3 06/13/20 18:52 Pain Level 10 06/13/20 18:52 Lab/Test Results Lab/Test Results: Laboratory Tests Range/Units 06/13/20 19:00 WBC (4.4-10.8) k/cumm 8.98 RBC (4.50-6.00) m/cumm 4.26 L Hgb (13.5-17.5) g/dL 13.9 Hct (40.0-50.0) % 41.2 MCV (80-95) fL 96.7 H MCH (27.0-33.0) pg 32.6 MCHC (32.0-36.0) g/dL 33.7 RDW (11.8-14.1) % 12.4 Plt Count (130-400) x1000/uL 206 MPV (8.0-11.0) fL 9.9 Immature Gran % % 0.1 Neutrophils % 77.3 Lymphocytes % 12.7 Monocytes % 7.9 Eosinophils % 1.9 Basophils % 0.1 Absolute Neutrophils (1.2-6.7) k/cumm 6.94 H Absolute Lymphocytes (1.2-3.4) k/cumm 1.14 L Absolute Monocytes (0.11-0.7) k/cumm 0.71 H Absolute Eosinophils (0.0-0.7) k/cumm 0.17 Absolute Basophils (0.0-0.2) k/cumm 0.01
[2020-06-13 19:22] LABS: PTT Activated 25.2 sec (21.0-31.4); Prothrombin Time 9.8 sec (9.3-11.0)
[2020-06-13 19:37] LABS: ALT 41 U/L (16-63); AST 25 U/L (15-37); Albumin 3.9 g/dL (3.4-5.0); Alkaline Phosphatase 82 U/L (46-116); Anion Gap 4.1 mmol/L (3-11); BUN 15 mg/dL (7-18); Bilirubin, Total 0.4 mg/dL (0.2-1.0); CO2 30.9 mmol/L (21.0-32.0); CREATININE 1.15 mg/dL (0.70-1.30); Calcium 9.4 mg/dL (8.5-10.1); Chloride 98 mmol/L (98-107); Glucose 181 mg/dL (74-106); Potassium 4.1 mmol/L (3.5-5.1); Sodium 133 mmol/L (136-145); Total Protein 7.6 g/dL (6.4-8.2); Troponin I < 0.05 ng/mL (<0.06)
[2020-06-13 19:38] LABS: NT-proBNP 132 pg/mL (<300)
[2020-06-13] MEDS: Normal Saline - Diluent 50 ML VIAL IV (19:46)
[2020-06-13] MEDS: Omnipaque 350 MG/ML 100 ML BTL IJ (19:47)
--- NOTE | 2020-06-13 21:09 | DI.VRAD_ITS ---
PROCEDURE INFORMATION: Exam: CT Angiography Chest With Contrast Exam date and time: 06/13/2020 7:50 PM Age: 74 years old Clinical indication: Left-sided chest pain TECHNIQUE: Imaging protocol: Computed tomographic angiography of the chest with intravenous contrast. 3D rendering: MIP and/or 3D reconstructed images were created by the technologist. Contrast material: OMNI 350; Contrast volume: 83 ml; Contrast route: INTRAVENOUS (IV); COMPARISON: CT CHEST FOR PULMONARY EMBOLUS 03/27/2017 8:25 PM FINDINGS: Pulmonary arteries: Normal. No pulmonary emboli. Aorta: Unremarkable. No aortic aneurysm. No aortic dissection. Lungs: No consolidation. No masses. Mosaic attenuation again noted at the lung bases, which could be secondary to mild air trapping. A 7 mm ground-glass nodule in the right upper lobe is unchanged since 2017. Pleural space: Unremarkable. No pneumothorax. No pleural effusion. Heart: Unremarkable. No cardiomegaly. No pericardial effusion. Lymph nodes: Unremarkable. No enlarged lymph nodes. Bones/joints: Unremarkable. No acute fracture. Soft tissues: Unremarkable. IMPRESSION: No evidence of pulmonary embolism or consolidation pneumonia. Dictated and Authenticated by: Palmira Umaña MD. Ordering:HERSON Mendoza MD
[2020-06-13 22:24] LABS: Troponin I < 0.05 ng/mL (<0.06)
--- NOTE | 2020-06-13 22:44 | HPE_ITS ---
Date of service: 06/13/20 Time of Service: 22:45 Assessment and Plan Assessment and plan (1) Chest pain: Status: Acute Assessment and plan: Did have concerning associated symptoms (diaphoresis, nausea, shortness of breath) and the chest pain did respond to nitroglycerin. The patient does not know if he had any stents placed on his cardiac cath in [place] in the s. [place] [facility] [place] showed clean coronaries and no prior stent could be visualized. I cannot find record of the patient having had any stress test since. Will give asa 325 mg now. Will continue to trend troponins and monitor on tele. Obtain EKG in am. Will make patient NPO after midnight with plans for echo and MPI in am. The patient has a listed reaction to adenosine - bronchospasm. I have spoken to [facility] pharmacy to see how related lexiscan is to adenosine - evidently, they are somewhat different, so this is not an absolute contraindication. (2) CAD (coronary artery disease): Status: Chronic Assessment and plan: Negative coronary arteries on cardiac cath [place] [facility]. It is unclear what intervention was done on a cardiac cath in [place] in . As above (3) CHF (congestive heart failure): Status: Chronic Assessment and plan: Biventricular, per [facility], with LVEF being 56% in 2018, up from 15% in 2013. Euvolemic. No change in tx at this time - continue asa, coreg, spironolactone, lasix. Hold lisinopril as the patient just received IV contrast. (4) Closed sacral fracture: Status: Acute Assessment and plan: Consult PT. (5) COPD (chronic obstructive pulmonary disease): Status: Chronic Assessment and plan: Not in acute exacerbation. Continue home regimen (6) DVT prophylaxis: Status: Acute Assessment and plan: Heparin Sc, TEDs, SCDs. (7) Discharge planning issues: Status: Acute Assessment and plan: Patient changed his code status to Full code on this admission. History of Present Illness History of Present Illness Chief Complaint: chest pain Narrative: Mr Chang is a 74 year old male with PMHx of CAD s/p 2 prior cardiac caths (last one in [place] at [facility] [place] with clean coronary arteries, no stents in place), as well as h/o biventricular heart failure with latest EF of 56% in 2018 (from 15% in 2013), oxygen-dependent COPD on 3L of O2 at home, pulmonary hypertension, ORLIN on CPAP, who presented to [facility] ED today complaning of chest pain that he woke up with this morning (to the ED provider he stated that it started at noon). The pain was described as sharp, left-sided, traveling in a circumferential manner to his back. The pain was accompanied by feeling of weakness/fatigue, dizziness, shortness of breath, nausea, dry heaves, and diaphoresis. The patient is not sure about palpitations. Nitroglycerin given in the ED relieved the pain completely. His two first troponins in the ED have been negative, his EKG shows left anterior fascicular block, unchanged from prior. Of note, on 06/07/2020, the patient was in our ED following a fall, which he now states was accompanied by loss of consciousness. He did hit his head at the time and reports an ongoing headache since then. He was diagnosed with a sacral fract ure. The patient states that overall his legs have been getting weaker, even before the fall. Review of Systems All systems reviewed & are unremarkable except as noted in HPI and below [facility] Medical History (Updated 06/13/20 @ 23:14 by Aziza Arias MD) Apical mural thrombus (Acute) Atrial fib/flutter, transient (Acute) Mena's palsy BPH (benign prostatic hyperplasia) (Chronic) CAD (coronary artery disease) Cardiomyopathy CHF (congestive heart failure) COPD (chronic obstructive pulmonary disease) DM (diabetes mellitus) HTN (hypertension) Hypothyroidism Obesity (BMI 30.0-34.9) (Acute) ORLIN (obstructive sleep apnea) Pulmonary hypertension (Acute) Renal insufficiency Surgical History (Updated 06/13/20 @ 21:44 by Aziza Arias MD) Appendectomy Colonoscopy - MAC (08/04/16) Hx of cardiac cath (Inactive) in [place] in the s - unknown intervention [facility] [place] - clean coronaries, severe pulmonary hypertension, no prior stent found Family History (Updated 06/13/20 @ 23:00 by Aziza Arias MD) Mother Cervical cancer Other Colon cancer Social History Smoking/Tobacco Use Status: Former Tobacco Use Drug use: Never Details: states he has increased his alcohol use recently due to the heat Do you feel safe at home: Yes Do you feel safe in your relationship?: Yes Meds Home Medications and Allergies Home Medications Medication Instructions Recorded Confirmed Type Centrum Silver 1 tab PO DAILY AM 09/01/13 06/13/20 History albuterol sulfate [Proventil HFA] 2 gm INHALATION DIRECTED #1 inh 09/01/13 06/13/20 Rx aspirin [Aspir-Low] 81 mg PO DAILY AM 09/01/13 06/13/20 History omeprazole 20 mg PO DAILY AM 09/01/13 06/13/20 History tamsulosin 0.4 mg PO BID 09/01/13 06/13/20 History albuterol sulfate 2.5 mg NEB Q4H PRN 10/21/13 06/13/20 History furosemide [Lasix] 80 mg PO DAILY 11/11/13 06/13/20 History lisinopril [Prinivil] 5 mg PO DAILY 11/11/13 06/13/20 History spironolactone 25 mg PO DAILY 11/11/13 06/13/20 History fluoxetine 20 mg PO DAILY 12/09/14 06/13/20 History Super B Complex + C 1 tab PO PRN PRN 01/21/15 06/13/20 History ascorbic acid (vitamin C) [Vitamin 1 tab PO PRN PRN 01/21/15 06/13/20 History C With Dejah Hips] saw palmetto 450 mg PO PRN PRN 01/21/15 06/13/20 History cyanocobalamin (vitamin B-12) 1,000 mcg PO DAILY #100 tablet 03/28/17 06/13/20 Rx cyclobenzaprine 10 mg PO HS 03/28/17 06/13/20 History levothyroxine [Synthroid] 50 mcg PO DAILY #30 03/28/17 06/13/20 Rx magnesium oxide 400 mg PO DAILY #30 tab 03/28/17 06/13/20 Rx oxycodone 5 mg PO Q6H PRN 03/28/17 06/13/20 History pravastatin 40 mg PO QPM 03/28/17 06/13/20 History carvedilol 25 mg tablet 25 mg PO BID 08/22/18 06/13/20 History fluticasone propionate 115 2 puff IH BID 08/22/18 06/13/20 History mcg-salmeterol 21 mcg/actuation HFA inhaler triamcinolone acetonide 0.1 % 1 applic TP BID 08/22/18 06/13/20 History topical cream cyanocobalamin (vitamin B-12) 1,000 mcg SUBCUT QMONTH 06/07/20 06/13/20 History metformin 500 mg PO DAILY PRN PRN 06/07/20 06/13/20 History Allergies Allergy/AdvReac Type Severity Reaction Status Date / Time Penicillins Allergy Severe Anaphylaxsi Unverified 06/13/20 19:02 s donepezil [From Aricept] Allergy Mild mild per Unverified 06/13/20 19:02 pcp chart adenosine Allergy Unverified 06/13/20 23:02 metformin [From Glucophage] Allergy per pcp Unverified 06/13/20 19:02 chart--moderate codeine AdvReac Intermediate Dizziness/L Unverified 06/13/20 19:02 ightheade Exam Narrative Exam Narrative: General: Pleasant obese male, very tangential in his history, A&OX3, looks comfortable Neurological: A&OX3, no focal deficits Psychiatric: pleasant affect, appropriate speech pattern, somewhat tangential content Skin: Visible skin intact HEENT: Seemingly atraumatic, normocephalic, EOMI, MMM, clarge neck diameter, no visible goiter or JVD, no lymphadenopathy Cardiovascular: RRR, no m/r/g Lungs: CTAB Gastrointestinal: soft, nontender, nondistended Genitourinary: deferred Extremities: no e/c/c BLE's, 1+ pedal pulses B Results Imaging Additional studies: CTA chest: No evidence of pulmonary embolism or consolidation pneumonia. EKG: HR 61, NSR, left anterior fascicular block, unchanged from previous Labs Result diagrams: 06/13/20 19:00 06/13/20 19:00 Labs: Laboratory Results - last 24 hr 06/13/20 06/13/20 06/13/20 19:00 19:00 19:00 WBC 8.98 RBC 4.26 L Hgb 13.9 Hct 41.2 MCV 96.7 H MCH 32.6 MCHC 33.7 RDW 12.4 Plt Count 206 MPV 9.9 Immature Gran % 0.1 Neutrophils % 77.3 Lymphocytes % 12.7 Monocytes % 7.9 Eosinophils % 1.9 Basophils % 0.1 Absolute Neutrophils 6.94 H Absolute Lymphocytes 1.14 L Absolute Monocytes 0.71 H Absolute Eosinophils 0.17 Absolute Basophils 0.01 PT 9.8 INR 1.0 APTT 25.2 Sodium 133 L Potassium 4.1 Chloride 98 Carbon Dioxide 30.9 Anion Gap 4.1 BUN 15 Creatinine 1.15 Estimated GFR/1.73 m2 >= 60.00 Glucose 181 H Calcium 9.4 Magnesium 2.0 Total Bilirubin 0.4 AST 25 ALT 41 Alkaline Phosphatase 82 Troponin I < 0.05 NT-Pro-B Natriuret Pep Total Protein 7.6 Albumin 3.9 06/13/20 06/13/20 06/13/20 19:00 21:35 22:00 WBC RBC Hgb Hct MCV MCH MCHC RDW Plt Count MPV Immature Gran % Neutrophils % Lymphocytes % Monocytes % Eosinophils % Basophils % Absolute Neutrophils Absolute Lymphocytes Absolute Monocytes Absolute Eosinophils Absolute Basophils PT INR APTT Sodium Potassium Chloride Carbon Dioxide Anion Gap BUN Creatinine Estimated GFR/1.73 m2 Glucose Calcium Magnesium Total Bilirubin AST ALT Alkaline Phosphatase Troponin I Cancelled < 0.05 NT-Pro-B Natriuret Pep 132 Total Protein Albumin Last Vital Signs Pulse 70 06/13/20 21:31 Resp 16 06/13/20 21:31 BP 101/63 06/13/20 21:31 Pulse Ox 96 06/13/20 21:31 COVID-19 Screening Have you,or household,traveled outside [place] in last 14 days?: No Had IN PERSON contact w/suspected or confirmed C-19 person: No
[2020-06-14] VITALS (7 sets, daily range): BP systolic 96–125; BP diastolic 46–72; PULSE 63–75; RESP 18–20; TEMP 35.9–37; O2SAT 92–98
[2020-06-14] MEDS: Aspirin E.C. 325 MG TABEC PO (00:18)
[2020-06-14] MEDS: Tamsulosin 0.4 MG CAPCR PO ×2 (00:18→19:49)
[2020-06-14] MEDS: Heparin 5,000 UNITS/ML VIAL 5000 UNITS SC ×4 (00:20→23:45)
--- NOTE | 2020-06-14 01:00 | NUR.NOTE ---
Nursing Note Patient arrived via stretcher at 2331 from the ED. See page two for initial assessment and vitals:
[2020-06-14 07:23] LABS: Anion Gap 5.9 mmol/L (3-11); BUN 16 mg/dL (7-18); CO2 32.1 mmol/L (21.0-32.0); CREATININE 1.04 mg/dL (0.70-1.30); Calcium 9.2 mg/dL (8.5-10.1); Calculated LDL 63 mg/dL (<100); Chloride 102 mmol/L (98-107); Cholesterol 130 mg/dL (<200); Glucose 123 mg/dL (74-106); HDL Cholesterol 30 mg/dL (40-60); Magnesium 1.9 mg/dL (1.8-2.4); Potassium 3.8 mmol/L (3.5-5.1); Sodium 140 mmol/L (136-145); TSH (W/Ref FT4) 2.21 uIU/mL (0.36-3.74); Triglyceride 187 mg/dL (<150); Troponin I < 0.05 ng/mL (<0.06)
--- NOTE | 2020-06-14 07:35 | DI.US_ITS ---
APPROVED REPORT EXAM: Comprehensive 2D, Doppler, and color-flow Echocardiogram Patient Location: In-Patient Room/Bed: 212 [address] Peller: Paula Szymanski RDCS (AE) Indications: Chest pain Other Information Study Quality: Adequate Conclusion Normal left ventricular wall thickness and chamber size. Estimated ejection fraction is 55%. There are no segmental wall motion abnormalities Right ventricle is normal in size and systolic function Both atria are normal in size Mildly sclerotic trileaflet aortic valve without regurgitation or stenosis Tricuspid valve is structurally normal with trace regurgitation. Estimated right ventricular systoli c pressure is normal at 26 mmHg Mild mitral annular calcification. No mitral regurgitation Normal pulmonic valve Trivial pericardial effusion Wall motion Left Ventricle The left ventricle is normal size. The left ventricular systolic function is normal. The left ventric ular ejection fraction is within the normal range. There is normal left ventricular wall thickness. T here is normal LV segmental wall motion. There is no ventricular septal defect visualized. LVEF is 53 %. Right Ventricle The right ventricle is normal size. The right ventricular systolic function is normal. The RVSP is 26 .0 mmHg. Atria The left atrium size is normal. The right atrium size is normal. The interatrial septum is intact wit h no evidence for an atrial septal defect. Aortic Valve The Aortic valve is sclerotic. Aortic valve is trileaflet. There is no aortic valvular stenosis. No a ortic regurgitation is present. Mitral Valve There is mitral annular calcification. No evidence of mitral valve stenosis. Trace to mild mitral reg urgitation. Tricuspid Valve The tricuspid valve is normal in structure. There is no tricuspid valve stenosis. Trace tricuspid reg urgitation. Pulmonic Valve The pulmonary valve is normal in structure. There is no pulmonic valvular stenosis. There is no pulmo sandra valvular regurgitation. Great Vessels The aortic root is normal in size. The ascending aorta is normal in size. Aortic arch is normal in ca liber. IVC is normal in size and collapses >50% with inspiration. Pericardium Trace pericardial effusion. 2D Dimensions IVSD d PLAX 0.95 cm M: 0.6-1.2 LV Vol A2C d MOD 123.3 mL LVPW d PLAX 0.92 cm M: 0.6 - 1.2 LV Vol A4C d MOD 92.3 mL LVID d PLAX 5.09 cm M: 4.2 - 5.8 LA vol/ BSA A2C s A-L 20.9 mL/m2 LVDs 3.65 cm M: 2.5 - 4.0 LA vol/ BSA A4C s A-L 28.0 mL/m2 Ao Root d 2.91 cm M: 3.1 - 3.7 LA Vol/ BSA Biplane s A-L 25.7 mL/m2 RA Area A4C 16.92 cm2 LA Area A4C s MOD 21.34 cm2 RA Vol/ BSA A4C s A-L 21.1 mL/m2 LA Area A2C s MOD 17.37 cm2 Ao Asc Diam d 3.22 cm M: 2.6 - 3.4 LV EF A4C MOD 52.3 % LV EF Teichholz 54.3 % LV EF A2C MOD 53.0 % LVEF (Frances's) 48.81 % M: 52 - 72 LV EF Biplane MOD 48.8 % LV Volume 81.71 mL M: 62 - 150 SV 54.25 mL LV Volume Index 38.54 mL/m2 M: 34 - 74 SV Index 25.52 mL/m2 LV Vol Biplane MOD 111.1 mL FS 28.25 % M-Mode TAPSE 2.15 cm (M/F) >1.7 LV Diastology MV E' medial 0.110 (>0.07 m/s) E/A Ratio 1.3 LV E/e MED 8.10 (<14) MV E Vmax 0.89 (0.4-1.3 m/s) MV E' lateral 0.074 (>0.1 m/s) MV A Vmax 0.70 (0.4-1.3 m/s) LV E/e LAT 12.05 (<14) MV E/A Ratio 1.23 MV E/E' medial 8.13 MV E/E' lateral 12.07 Aortic Valve LVOT Area 3.76 cm2 AoV Area Vmax 2.91 cm2 LVOT Vmax 1.26 m/s AoV Area/ BSA (Vmax) 1.37 cm2/m2 LVOT Mean Jw. 0.83 m/s LIZETT Mean Jw. 2.89 cm2 LVOT Peak Grad 6.4 mmHg LIZETT Mean Jw. Index 1.36 cm2/m2 LVOT Mean Grad 3.3 mmHg LVOT VTI 0.308 m LVOT Diam s 2.15 cm AoV Vmax 1.63 m/s Velocity Ratio 0.77 AoV Mean Jw. 1.09 m/s AoV Peak Grad 10.7 mmHg LVOT SV 115.57 mL AoV Mean Grad 5.3 mmHg AoV VTI 0.342 m AoV Area VTI 3.38 cm2 AoV Area/ BSA (VTI) 1.59 cm/m2 Mitral Valve MV DT 193 (160-240 msec) MV PHT 56 msec MV Area PHT 3.94 cm2 Pulmonary Valve PV Vmax 0.79 (0.5-1.5 m/s) RVOT Peak Gr. 1.72 mmHg PV Peak Grad 2.5 mmHg RVOT Mean Gr. 1.00 mmHg PV Mean Grad 1.4 mmHg RVOT VTI 0.162 m PV VTI 0.195 m RVOT Vmax 0.66 m/s Tricuspid Valve TR Peak Grad 22.9 mmHg TR Vmax 2.40 m/s RA Pressure 3.00 mmHg RVSP (TR) 26.0 mmHg
--- NOTE | 2020-06-14 08:00 | DI.NM_ITS ---
APPROVED REPORT Exam: Pharmacologic Patient Location: In-Patient Room/Bed: 212 Stress Nurse: Lyn Quintero RN BMI: 33.90 Baseline Rhythm: Atrial Fibrillation Indications: Cardiomyopathy, Congestive Heart Failure, CAD, Dyspnea, SOB Medical History Medical History: Atrial Fibrillation, Cardiomyopathy, CAD non obstructive, Diabetes, HTN, Hyperlipide magali, Obesity , Obstructive sleep apnea, SOB, COPD Cardiac Medications: Aspirin, Carvedilol, Furosemide/ Lasix, Lisinopril, Pravastatin Allergies: penicillins, donepezil, adenosine, metformin, codeine Cardiac Risk Factors: HTN, Hyperlipidemia, DM, COPD, CVD Pretest Chest Pain Characteristics: No chest pain Exercise History: Sedentary Physical Disabilities: Legs Lung Sounds: diminished Heart Sounds: Irregular Stress Test Details Test: Pharmacologic stress testing performed using 0.4 mg of regadenoson per 5 mL given IV over 10 s econds. Nuclear Acquisition: Rest Tc-99m/Stress Tc-99m 1 day Rest Isotope: Tc-99m Sestamibi. Dose: 11.6 Date: 06/14/2020 Injection Time: 1200 Stress Isotope: Tc-99m Sestamibi. Dose: 38 Date: 06/14/2020 Injection Time: 1340 HR Resting HR Supine: 65 bpm Max Heart Rate (APMHR): 145 bpm Target HR (85% APMHR): 123 bpm Max HR Achieved: 92 bpm % of APMHR: 63 Recovery HR: 76 bpm HR response to stress: Normal HR response to stress BP Resting BP Supine: 128/80 mmHg Max BP: 128/80 mmHg Recovery BP: 126/82 mmHg BP response to stress: Blunted blood pressure response to stress. ECG Resting ECG: Low voltage, LAFB Stress ECG: No change Arrhythmia: VPC's Recovery ECG: No change Recovery Arrhythmia: None Clinical Reason for Termination: vs returned to baseline Stress Symptoms: none Exercise duration: 6 min8 sec Stress ECG Conclusion 1. This was a pharmacologic myocardial perfusion imaging study 2. The same electrocardiogram showed sinus rhythm, low voltage, left anterior fascicular block 3. Blunted heart rate and blood pressure response to pharmacologic stress 4. Maximum heart rate achieved was 63% of predicted for age 5. Electrocardiographically the test was nondiagnostic due to inadequate heart rate 6. There were no significant dysrhythmias MPI Conclusion The ejection fraction was 35% with stress. There is global hypokinesis. There is no evidence of reversible ischemia on the imaging portion of the exam. Radiologist Interpretation no evidence of ischemia; global hypokinesis,mild Radiologist Interpretation by: Stephen Mcdaniel MD Interpretation Date/Time: 06/21/2020 14:50:52
[2020-06-14] MEDS: Budesonide/Formoterol 160/4.5 6 GM 60 PUFF INH IH ×2 (08:30→19:48)
[2020-06-14] MEDS: Normal Saline Flush 10 ML SYR IVP ×2 (09:21→18:33)
--- NOTE | 2020-06-14 10:12 | IN_ITS ---
Date of service: 06/14/20 Time of Service: 10:12 PT Notes Visit Reasons: CHEST PAIN Physical Therapy Inpatient Initial Evaluation Date: 06/14/2020 Referring Doctor: Aziza Arias MD PT Orders: PT CONSULT: Limited ability Precautions: Fall. Standard. Activity as tolerated. Patient Profile/Admitting Diagnosis: Candelario is a 74-year-old male who presented to the ED on 06/13/2020 with a chief complaint of sharp left-sided chest pain, weakness, fatigue, dizziness, shortness of breath, nausea, dry heaves, and diaphoresis. Patient also fell after he lost consciousness and hit his head and also complained of headache while at the ED. Patient is diagnosed with congestive heart failure with EF of percent, close sacral fracture, and chest pain. PMHX: Medical History (Updated 06/13/20 @ 23:14 by Aziza Arias MD) Apical mural thrombus (Acute) Atrial fib/flutter, transient (Acute) Mena's palsy BPH (benign prostatic hyperplasia) (Chronic) CAD (coronary artery disease) Cardiomyopathy CHF (congestive heart failure) COPD (chronic obstructive pulmonary disease) DM (diabetes mellitus) HTN (hypertension) Hypothyroidism Obesity (BMI 30.0-34.9) (Acute) ORLIN (obstructive sleep apnea) Pulmonary hypertension (Acute) Renal insufficiency Surgical History (Updated 06/13/20 @ 21:44 by Aziza Arias MD) Appendectomy Colonoscopy - MAC (08/04/16) Hx of cardiac cath (Inactive) in [place] in the s - unknown intervention [facility] [place] 2013 - clean coronaries, severe pulmonary hypertension, no prior stent found Social History/Home Situation: Candelario lives with in a private home with 2 steps to enter with rails on both sides, they have another set of stairs with both rails to the second floor of the house where their bedroom is. He is independent with all ADLs and uses a walking stick for all outdoor ambulation and none for indoors. He shares looking for with and is fully responsible for laundry. He still drives. Equipment Owned/DME: Front wheeled walker Subjective: Patient denies headache, chest pain, but did report of soreness in the back of his neck and his sacral area specially during manual muscle testing. Per patient has fallen at least 10 times for the past year and twice for this past week. He has become increasingly clumsy with his walking these past year. Objective: General Observation: IV access to left UE. TEDS to Jesi Orozco. Telemetry monitoring in place. Mental Status: Alert and oriented x 4 required repetition of instruction due to auditory acuity. Pain: Posterior neck and sacral area soreness Vital Signs: Oxygen saturation stayed within 95% to 96% on room air throughout ambulation activity ROM: Right Upper Extremity: Shoulder Flexion WFL. Shoulder abduction WFL. Elbow flexion WFL. Wrist flexion WFL. Opening and closing of hand WFL. Left Upper Extremity: Shoulder Flexion WFL. Shoulder abduction WFL. Elbow flexion WFL. Wrist flexion WFL. Opening and closing of hand WFL. Right Lower Extremity: Hip flexion WFL. Hip abduction WFL. Knee flexion WFL. Ankle dorsiflexion WFL. Ankle plantarflexion WFL. Left Lower Extremity: Hip flexion WFL. Hip abduction WFL. Knee flexion WFL. Ankle dorsiflexion WFL. Ankle plantarflexion WFL. Strength: Right Upper Extremity: Shoulder flexors 5/5. Shoulder abductors 5/5. Elbow flexors 5/5. Elbow extensors 5/5. Verification Engineer strong. Left Upper Extremity: Shoulder flexors 5/5. Shoulder abductors 5/5. Elbow flexors 5/5. Elbow extensors 5/5. Verification Engineer strong. Right Lower Extremity: Hip flexors 4-/5. Hip abductors 4-/5. Knee flexors 4-5. Knee extensors 4-/5. Ankle dorsiflexors 4/5. Ankle plantarflexors 4/5. Left Lower Extremity: Hip flexors 4-/5. Hip abductors 4-/5. Knee flexors 4-5. Knee extensors 4-/5. Ankle dorsiflexors 4/5. Ankle plantarflexors 4/5. Sensation: Intact as to pain and pressure on bilateral lower extremities. Bed Mobility/Transfers: Rolling supervision Supine to sit supervision supervision Sit to supine supervision Sit to stand contact guard assist Stand to sit contact guard assist Bed to chair contact guard assist Chair to bed contact guard assist Gait: Tolerated 260 feet of level surface ambulation using front wheeled walker with contact-guard assist. Wide-based gait pattern. Lashon decreased. Trunk forward flexed. Balance: Static Sitting: Normal Dynamic Sitting: Normal Static Standing: Fair Dynamic Standing: Fair Special Tests: Mobility Limitations Standardized Measure [facility] AM-PAC 6 clicks Basic Mobility Inpatient Short Form: Raw Score: 20 CMS Score: 36% deficit Romberg Test: Positive indicating at high risk for falls. 4-Stage balance test: Patient was unable to maintain all 4 positions of the test indicating high risk for falls. Informed Consent/Education: Patient instructed in purpose of PT consult and plan of care. Assessment: Candelario demonstrates bilateral lower extremity weakness, functional mobility decline requiring the use of front wheeled walker, impairment in balance, and increased fall risk due to admitting diagnoses. Candelario is a 74-year-old male who presented to the ED on 06/13/2020 with a chief complaint of sharp left-sided chest pain, weakness, fatigue, dizziness, shortness of breath, nausea, dry heaves, and diaphoresis. Patient also fell after he lost consciousness and hit his head and also complained of headache while at the ED. Patient is diagnosed with congestive heart failure with EF of percent, close sacral fracture, and chest pain. Patient may benefit from a neurologic consult to determine creating balance impairment. Patient presents with clinical signs and symptoms consistent with cur rent/admitting diagnoses that have resulted to mobility limitations, gait instability, generalized weakness, and impairment of motor control as demonstrated by the following impairment level findings: 1. Decreased strength to B LE major muscle groups 2. Impaired standing balance 3. Impaired activity tolerance Impairments are contributing to the following functional limitations: 1. Increased dependence with transfers 2. Inability to safely ambulate without assistive device and physical assistance 3. Increase completion time for mobility ADL performance 4. Increased fall risk 5. Inability to negotiate steps alone safely Patient is assessed as a [id number] moderate complexity based on the following: History: 74 [id number] with impairment level findings, functional limitations, and past medical history as indicated above Examination: Demonstrable impairment in strength, balance, and mobility level with underlying impairments and functional limitations as documented above Presentation:Evolving Decision Makin moderate complexity Goals: Goals X 1 week 1. Supine-Sit independent 2. Sit-Supine independent 3. Sit-Stand independent 4. Stand-Sit independent 5. Bed-Chair independent 6. Chair-Bed independent 7. Independent gait on level surface with use of least restrictive device for at least 300 feet without report of pain nor dyspnea 8. Independent stair negotiation while holding onto bilateral rails for at least 10 steps without report of pain nor dyspnea 9. Independent with home exercise program 10. Good static and dynamic standing balance/tolerance Plan of Care/Treatment Plan: 1-2x/day, 7 days/week x 1 week. Plan of care has been reviewed with the SPORTS STATISTICIAN providing the service under Physical Therapy direction. Initiate Physical Therapy intervention for strengthening, bed mobility, transfers, gait, stairs, balance training, use of assistive device. DISCHARGE RECOMMENDATIONS: Neurologic consult recommended to identify root cause for increasing balance impairment. No equipment needs at this time. Patient will benefit from home health PT services in order to progress mobility level using least restrictive assistive ambulatory device, assess home safety, identify additional equipment needs, and establish a functional maintenance program that will increase ability of patient to remain at home. TREATMENT CODE/TIME: 16897 x 25 minutes, 9753 0 x 13 minutes beginning at 10:12 AM. Thank you for the opportunity to participate in the care of this patient. Bernie Blevins PT, DPT, CLT [facility] [place], [place]
[2020-06-14 13:01] LABS: COVID-19 RT-PCR UVMMC Result Negative (Negative)
[2020-06-14] MEDS: Regadenoson 0.4 MG/5 ML SYR IVP (14:02)
--- NOTE | 2020-06-14 14:12 | W.PM.DS.N ---
Date of service: 06/14/20 Time of Service: 14:12 DS: Diagnosis Discharge Diagnosis (1) Chest pain: Start date: 06/14/20 Start time: 14:12 Status: Ruled-out Asessment and Plan: Patient has not had any chest pain since admission. Echo reading: Conclusion Normal left ventricular wall thickness and chamber size. Estimated ejection fraction is 55%. There are no segmental wall motion abnormalities Right ventricle is normal in size and systolic function Both atria are normal in size Mildly sclerotic trileaflet aortic valve without regurgitation or stenosis Tricuspid valve is structurally normal with trace regurgitation. Estimated right ventricular systolic pressure is normal at 26 mmHg Mild mitral annular calcification. No mitral regurgitation Normal pulmonic valve Trivial pericardial effusion Stress test did show calculate EF to 35 % with small area decreased apical and anteroapical uptake with stress which partially redistributes suggesting ischemia, [facility] cardiology consulted. They recommend cardiac cath as inpatient he has been accepted to [facility] accepting Dr. Grider, awaiting bed placement at this time. He did have elevated triglycerides started on omega fish oil, otherwise cholesterol within range. Continue BB, statin, Asa 81 mg, diuretics. Follow up with PCP in 2 weeks (2) CAD (coronary artery disease): Start date: 06/14/20 Start time: 14:17 Status: Chronic Asessment and Plan: as above (3) CHF (congestive heart failure): Start date: 06/14/20 Start time: 14:17 Status: Chronic Asessment and Plan: as above continue diuretics (4) Closed sacral fracture: Start date: 06/14/20 Start time: 14:17 Status: Acute Asessment and Plan: History of falls. Recently worsening. PT recommends home PT. Outpatient evaluation by neurology (5) COPD (chronic obstructive pulmonary disease): Start date: 06/14/20 Start time: 14:18 Status: Chronic Asessment and Plan: Not excacerabated at this time. Continue oxygen 2.5 liter, Above case discussed with Dr. Gary who is in agreement. Discharge Plan Disposition Patient Disposition: [facility] Condition: Good Discharge Details Chief Complaint: Chest Pain Clinical Impression: Chest pain Reason For Visit: CHEST PAIN Admit Date/Time: 06/13/20 22:30 Admit Provider: Aziza Arias Attending Provider: Aziza Arias Primary Care Provider: Deepa Oliva V ED Provider: Reji Byrnes Hospital Course Hospital Course: 74 year old male with PMHx of CAD s/p 2 prior cardiac caths (last one in 2012 at [facility] with clean coronary arteries, no stents in place), as well as h/o biventricular heart failure with latest EF of 56% in 2018 (from 15% in 2013), 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 The pain was accompanied by feeling of weakness/fatigue, dizziness, shortness of breath, nausea, dry heaves, and diaphoresis. The patient is not sure about palpitations. Nitroglycerin given in the ED relieved the pain completely. Serial troponins have been negative, his EKG shows left anterior fascicular block, unchanged from prior. Of note, on 06/07/2020, the patient was in our ED following a fall, which he now states was accompanied by loss of consciousness. He did hit his head at the time and reports an ongoing headache since then. He was diagnosed with sacral fracture. While in the hospital PT has evaluated the patient and feels he could benefit from PT at home. He has never had a neurology evaluation for falls, he did not have dizziness, or lightheadedness but he did have a positive romberg. He should be evaluated by neurology as an outpatient. Cardiac work up was not revealing echo: Conclusion Normal left ventricular wall thickness and chamber size. Estimated ejection fraction is 55%. There are no segmental wall motion abnormalities Right ventricle is normal in size and systolic function Both atria are normal in size Mildly sclerotic trileaflet aortic valve without regurgitation or stenosis Tricuspid valve is structurally normal with trace regurgitation. Estimated right ventricular systolic pressure is normal at 26 mmHg Mild mitral annular calcification. No mitral regurgitation Normal pulmonic valve Trivial pericardial effusion NPI conclusion Calculated EF by this technique was 35% There is a small area of decreased apical and anteroapical uptake with stress which partially redistributes suggesting ischemia No significant areas of infarction He has been chest pain free since admission. [facility] consulted regarding patient results, it is recommend he be transferred to [facility] for cardiac cath given change in NPI and concern for ischemia. Accepting is Dr. Grider Awaiting bed placement at this time. He denies CP, SOB, at this time he does need to be heparinized but if anything changes contact [facility] immediately. Home Meds and New Rx's Prescriptions: New omega 3-rrn-dcu-fish oil 1,000 mg (120 mg-180 mg) Capsule 4,000 mg PO DAILY Qty: 120 RF: 0 Continued triamcinolone acetonide 0.1 % cream 1 applic TP BID RF: 0 Advair HFA 115-21 mcg/actuation HFA aerosol inhaler 2 puff IH BID RF: 0 carvedilol 25 mg tablet 25 mg PO BID RF: 0 tamsulosin 0.4 MG capsule 0.4 mg PO BID RF: 0 omeprazole 20 MG capsule,delayed release(DR/EC) 20 mg PO DAILY AM RF: 0 aspirin [Aspir-Low] 81 MG tablet,delayed release (DR/EC) 81 mg PO DAILY AM RF: 0 Centrum Silver 1 EACH tablet,chewable 1 tab PO DAILY AM RF: 0 albuterol sulfate [Proventil HFA] 1 PUFF HFA aerosol inhaler 2 gm Inhalation DIRECTED Qty: 1 RF: 3 albuterol sulfate 2.5 MG/3 ML solution for nebulization 2.5 mg NEB Q4H PRNRF: 0 spironolactone 25 MG tablet 25 mg PO DAILY RF: 0 furosemide [Lasix] 80 MG tablet 80 mg PO DAILY RF: 0 lisinopril [Prinivil] 5 MG tablet 5 mg PO DAILY RF: 0 fluoxetine 20 MG capsule 20 mg PO DAILY RF: 0 ascorbic acid (vitamin C) [Vitamin C With Dejah Hips] 1,000 MG tablet 1 tab PO PRN PRNRF: 0 saw palmetto 500 MG capsule 450 mg PO PRN PRNRF: 0 Super B Complex + C 150 MG tablet 1 tab PO PRN PRNRF: 0 pravastatin 40 MG tablet 40 mg PO QPM RF: 0 oxycodone 5 MG tablet 5 mg PO Q6H PRNRF: 0 cyclobenzaprine 10 MG tablet 10 mg PO HS RF: 0 magnesium oxide 400 MG tablet 400 mg PO DAILY Qty: 30 RF: 0 cyanocobalamin (vitamin B-12) 1,000 MCG tablet 1,000 mcg PO DAILY Qty: 100 RF: 0 levothyroxine [Synthroid] 25 MCG tablet 50 mcg PO DAILY Qty: 30 RF: 0 cyanocobalamin (vitamin B-12) 1,000 mcg/mL Solution 1,000 mcg SUBCUT QMONTH RF: 0 metformin 500 mg tablet extended release 24 hr 500 mg PO DAILY PRN PRNRF: 0 Discharge Instructions Instructions: Chest Pain (DC) Additional Instructions: Transfer to [facility] for cardiac catherization Referrals: Jillian Julio MD [ [facility] STAFF PHYSICIAN] - (Recurring falls, recent with sacral fracture and positive romberg by PT) Activity:: Activity as Tolerated Equipment/Supplies:: No Equipment Needed Diet:: Low Sodium Discharge Orders Discharge Orders: Discharge Order (Routine); Ordered 06/14/20 Ordered By: Sharon Ivey DS: Summary Status at Discharge Functional status at discharge: uses cane/walker Overall status at discharge: patient is progressing back to baseline Mental Status: mental status grossly normal Speech and Movement: speech and movement normal Mood: congruent mood Affect: normal affect Exam Narrative Exam Narrative: General: Pleasant obese male, sitting on side of bed, A&OX3, looks comfortable Neurological: A&OX3, no focal deficits Psychiatric: pleasant affect, appropriate speech pattern, somewhat tangential content Skin: Visible skin intact HEENT: Seemingly atraumatic, normocephalic, EOMI, MMM, clarge neck diameter, no visible goiter or JVD, no lymphadenopathy Cardiovascular: RRR, no m/r/g Lungs: CTAB Gastrointestinal: soft, nontender, nondistended Genitourinary: deferred Extremities: no e/c/c BLE's, 1+ pedal pulses B Psych Mental Status: mental status grossly normal Speech and Movement: speech and movement normal Mood: congruent mood Affect: normal affect DS: Data Vitals/I&O Vitals and I&O: Vital Signs Temperature 36.9 C 06/14/20 11:29 Temperature Source Tympanic 06/14/20 11:29 Pulse 64 06/14/20 11:29 Pulse Rhythm Regular 06/13/20 23:43 Pulse 65 06/13/20 23:10 Respiratory Rate 19 06/14/20 11:29 Respiratory Effort Short of Breath 06/14/20 08:58 Respiratory Depth Normal 06/14/20 08:58 Respiratory Pattern Normal 06/14/20 08:58 Blood Pressure 121/70 06/14/20 11:29 Blood Pressure Mean 82 06/13/20 23:01 Pulse Oximetry 95 06/14/20 11:29 Oxygen Delivery Method Room Air 06/14/20 11:29 Oxygen Flow Rate 0 06/14/20 11:29 Pain Level 3 06/14/20 11:29 Comment 06/14/20 05:07 Intake & Output 06/13/20 06/14/20 06/14/20 23:59 11:59 23:59 Weight 102.1 kg 101.2 kg Other: # Voids 1 Data Completed and Pending Completed studies during hospitalization [Text1]: COMPARISON: CT CHEST FOR PULMONARY EMBOLUS 03/27/2017 8:25 PM FINDINGS: Pulmonary arteries: Normal. No pulmonary emboli. Aorta: Unremarkable. No aortic aneurysm. No aortic dissection. Lungs: No consolidation. No masses. Mosaic attenuation again noted at the lung bases, which could be secondary to mild air trapping. A 7 mm ground-glass nodule in the right upper lobe is unchanged since 2017. Pleural space: Unremarkable. No pneumothorax. No pleural effusion. Heart: Unremarkable. No cardiomegaly. No pericardial effusion. Lymph nodes: Unremarkable. No enlarged lymph nodes. Bones/joints: Unremarkable. No acute fracture. Soft tissues: Unremarkable. IMPRESSION: No evidence of pulmonary embolism or consolidation pneumonia. Conclusion Normal left ventricular wall thickness and chamber size. Estimated ejection fraction is 55%. There are no segmental wall motion abnormalities Right ventricle is normal in size and systolic function Both atria are normal in size Mildly sclerotic trileaflet aortic valve without regurgitation or stenosis Tricuspid valve is structurally normal with trace regurgitation. Estimated right ventricular systolic pressure is normal at 26 mmHg Mild mitral annular calcification. No mitral regurgitation Normal pulmonic valve Trivial pericardial effusion Stress ECG Conclusion 1. This was a pharmacologic myocardial perfusion imaging study 2. The same electrocardiogram showed sinus rhythm, low voltage, left anterior fascicular block 3. Blunted heart rate and blood pressure response to pharmacologic stress 4. Maximum heart rate achieved was 63% of predicted for age 5. Electrocardiographically the test was nondiagnostic due to inadequate heart rate 6. There were no significant dysrhythmias MPI Conclusion Calculated EF by this technique was 35% There is a small area of decreased apical and anteroapical uptake with stress which partially redistributes suggesting ischemia No significant areas of infarction Labs on day of discharge: Labs from last 24 hours 07/27/20 07/27/20 07/26/20 06:30 06:30 22:40 WBC RBC Hgb Hct MCV MCH MCHC RDW Plt Count MPV Immature Gran % Neutrophils % Lymphocytes % Monocytes % Eosinophils % Basophils % Absolute Neutrophils Absolute Lymphocytes Absolute Monocytes Absolute Eosinophils Absolute Basophils PT INR APTT Sodium 140 Potassium 3.8 Chloride 102 Carbon Dioxide 32.1 H Anion Gap 5.9 BUN 16 Creatinine 1.04 Estimated GFR/1.73 m2 >= 60.00 Glucose 123 H Hemoglobin A1c 7.0 H Calcium 9.2 Magnesium 1.9 Total Bilirubin AST ALT Alkaline Phosphatase Troponin I < 0.05 NT-Pro-B Natriuret Pep Total Protein Albumin Triglycerides 187 H Total Cholesterol 130 LDL Cholesterol, Calc 63 HDL Cholesterol 30 L TSH 2.21 COVID-19 PCR Negative Nasopharyn COVID-19 PCR Not Applicable Ref Test Perform Site [facility] 06/13/20 06/13/20 06/13/20 22:00 21:35 19:00 WBC RBC Hgb Hct MCV MCH MCHC RDW Plt Count MPV Immature Gran % Neutrophils % Lymphocytes % Monocytes % Eosinophils % Basophils % Absolute Neutrophils Absolute Lymphocytes Absolute Monocytes Absolute Eosinophils Absolute Basophils PT INR APTT Sodium Potassium Chloride Carbon Dioxide Anion Gap BUN Creatinine Estimated GFR/1.73 m2 Glucose Hemoglobin A1c Calcium Magnesium Total Bilirubin AST ALT Alkaline Phosphatase Troponin I < 0.05 Cancelled NT-Pro-B Natriuret Pep 132 Total Protein Albumin Triglycerides Total Cholesterol LDL Cholesterol, Calc HDL Cholesterol TSH COVID-19 PCR Nasopharyn COVID-19 PCR Ref Test Perform Site 06/13/20 06/13/20 06/13/20 19:00 19:00 19:00 WBC 8.98 RBC 4.26 L Hgb 13.9 Hct 41.2 MCV 96.7 H MCH 32.6 MCHC 33.7 RDW 12.4 Plt Count 206 MPV 9.9 Immature Gran % 0.1 Neutrophils % 77.3 Lymphocytes % 12.7 Monocytes % 7.9 Eosinophils % 1.9 Basophils % 0.1 Absolute Neutrophils 6.94 H Absolute Lymphocytes 1.14 L Absolute Monocytes 0.71 H Absolute Eosinophils 0.17 Absolute Basophils 0.01 PT 9.8 INR 1.0 APTT 25.2 Sodium 133 L Potassium 4.1 Chloride 98 Carbon Dioxide 30.9 Anion Gap 4.1 BUN 15 Creatinine 1.15 Estimated GFR/1.73 m2 >= 60.00 Glucose 181 H Hemoglobin A1c Calcium 9.4 Magnesium 2.0 Total Bilirubin 0.4 AST 25 ALT 41 Alkaline Phosphatase 82 Troponin I < 0.05 NT-Pro-B Natriuret Pep Total Protein 7.6 Albumin 3.9 Triglycerides Total Cholesterol LDL Cholesterol, Calc HDL Cholesterol TSH COVID-19 PCR Nasopharyn COVID-19 PCR Ref Test Perform Site [facility] Medical History (Updated 06/14/20 @ 14:12 by Sharon Ivey NP) Apical mural thrombus (Acute) Atrial fib/flutter, transient (Acute) Mena's palsy BPH (benign prostatic hyperplasia) (Chronic) CAD (coronary artery disease) Cardiomyopathy CHF (congestive heart failure) COPD (chronic obstructive pulmonary disease) DM (diabetes mellitus) HTN (hypertension) Hypothyroidism Obesity (BMI 30.0-34.9) (Acute) ORLIN (obstructive sleep apnea) Pulmonary hypertension (Acute) Renal insufficiency Surgical History (Updated 06/13/20 @ 21:44 by Aziza Arias MD) Appendectomy Colonoscopy - MAC (08/04/16) Hx of cardiac cath (Inactive) in [place] in the - unknown intervention [facility] 2013 - clean coronaries, severe pulmonary hypertension, no prior stent found Family History (Updated 06/13/20 @ 23:01 by Aziza Arias MD) Mother Cervical cancer Other Colon cancer Social History Smoking/Tobacco Use Status: Former Tobacco Use Drug use: Never Details: states he has increased his alcohol use recently due to the heat Do you feel safe at home: Yes Do you feel safe in your relationship?: Yes
--- NOTE | 2020-06-14 14:47 | NUR.NOTE ---
Nursing Note: 06/13/2020 14:47 Patient is back on the med/surg floor following a cardiac stress test for which the patient was NPO since midnight last night. Nurse held morning medications this morning due to NPO status of patient and offered them to patient now this afternoon, patient reported that he doesn't want these medications because of his planned discharge today and reports that he would like to resume his medication regimen once he gets home.
--- NOTE | 2020-06-14 14:51 | PT.INDS ---
Date of service: 06/14/20 Time of Service: 14:51 PT Notes Visit Reasons: CHEST PAIN Inpatient Physical Therapy Discharge Summary Dates: 06/07/2020 Dates of Service: 06/14/2020 only only Precautions: Fall. Standard. Activity as tolerated. Patient Profile/Admitting Diagnosis: Candelario is a 74-year-old male who presented to the ED on 06/13/2020 with a chief complaint of sharp left-sided chest pain, weakness, fatigue, dizziness, shortness of breath, nausea, dry heaves, and diaphoresis. Patient also fell after he lost consciousness and hit his head and also complained of headache while at the ED. Patient is diagnosed with congestive heart failure with EF of percent, close sacral fracture, and chest pain. Subjective: Patient hopes to go home as soon as possible when medically cleared. He is agreeable to home health company initially in order to assess home safety. He would like to progress to doing outpatient physical therapy services once he is safe to do so. Objective: General Observation: IV access to left UE. TEDS to B LEs. Telemetry monitoring in place. Mental Status: Alert and oriented x 4 required repetition of instruction due to auditory acuity. Pain: Posterior neck and sacral area soreness Vital Signs: Oxygen saturation stayed within 95% to 96% on room air throughout ambulation activity ROM: Right Upper Extremity: Shoulder Flexion WFL. Shoulder abduction WFL. Elbow flexion WFL. Wrist flexion WFL. Opening and closing of hand WFL. Left Upper Extremity: Shoulder Flexion WFL. Shoulder abduction WFL. Elbow flexion WFL. Wrist flexion WFL. Opening and closing of hand WFL. Right Lower Extremity: Hip flexion WFL. Hip abduction WFL. Knee flexion WFL. Ankle dorsiflexion WFL. Ankle plantarflexion WFL. Left Lower Extremity: Hip flexion WFL. Hip abduction WFL. Knee flexion WFL. Ankle dorsiflexion WFL. Ankle plantarflexion WFL. Strength: Right Upper Extremity: Shoulder flexors 5/5. Shoulder abductors 5/5. Elbow flexors 5/5. Elbow extensors 5/5. Student Finance Advisor strong. Left Upper Extremity: Shoulder flexors 5/5. Shoulder abductors 5/5. Elbow flexors 5/5. Elbow extensors 5/5. Student Finance Advisor strong. Right Lower Extremity: Hip flexors 4-/5. Hip abductors 4-/5. Knee flexors 4-5. Knee extensors 4-/5. Ankle dorsiflexors 4/5. Ankle plantarflexors 4/5. Left Lower Extremity: Hip flexors 4-/5. Hip abductors 4-/5. Knee flexors 4-5. Knee extensors 4-/5. Ankle dorsiflexors 4/5. Ankle plantarflexors 4/5. Sensation: Intact as to pain and pressure on bilateral lower extremities. Bed Mobility/Transfers: Rolling supervision Supine to sit supervision supervision Sit to supine supervision Sit to stand SBA Stand to sit SBA Bed to chair SBA Chair to bed SBA Gait: Tolerated 150 feet x2 of level surface ambulation using front wheeled walker with contact-guard assist. Wide-based gait pattern. Lashon decreased. Trunk forward flexed. Patient tolerated up-and-down sit 4 inch steps and four 6 inch steps holding onto bilateral rails with SBA of PT using step over step gait pattern. THERA EX: Candelario tolerated standing level exercises consisting of heel raises x10, high marches x10, partial knee bends x10, with one hand holding onto a grab bar for safety. Balance: Static Sitting: Normal Dynamic Sitting: Normal Static Standing: Fair Dynamic Standing: Fair Special Tests: Mobility Limitations Standardized Measure [facility] 6 clicks Basic Mobility Inpatient Short Form: Raw Score: 20 CMS Score: 36% deficit Romberg Test: Positive indicating at high risk for falls. 4-Stage balance test: Patient was unable to maintain all 4 positions of the test indicating high risk for falls. Assessment: Candelario will benefit from skilled home health PT services for home safety evaluation in response to repetitive falls. Candelario demonstrates bilateral lower extremity weakness, functional mobility decline requiring the use of front wheeled walker, impairment in balance, and increased fall risk due to admitting diagnoses. Candelario is a 74-year-old male who presented to the ED on 06/13/2020 with a chief complaint of sharp left-sided chest pain, weakness, fatigue, dizziness, shortness of breath, nausea, dry heaves, and diaphoresis. Patient also fell after he lost consciousness and hit his head and also complained of headache while at the ED. Patient is diagnosed with congestive heart failure with EF of percent, close sacral fracture, and chest pain. Patient may benefit from a neurologic consult to determine creating balance impairment. Patient continues to present with clinical signs and symptoms consistent with current/admitting diagnoses that have resulted to mobility limitations, gait instability, generalized weakness, and impairment of motor control as demonstrated by the following impairment level findings: 1. Decreased strength to B LE major muscle groups 2. Impaired standing balance 3. Impaired activity tolerance Impairments are continuing to contribute to the following functional limitations: 1. Increased dependence with transfers 2. Inability to safely ambulate without assistive device and physical assistance 3. Increase completion time for mobility ADL performance 4. Increased fall risk 5. Inability to negotiate steps alone safely Goals: Goals X 1 week 1. Supine-Sit independent NOT MET 2. Sit-Supine independent NOT MET 3. Sit-Stand independent NOT MET 4. Stand-Sit independent NOT MET 5. Bed-Chair independent NOT MET 6. Chair-Bed independent NOT MET 7. Independent gait on level surface with use of least restrictive device for at least 300 feet without report of pain nor dyspnea NOT MET 8. Independent stair negotiation while holding onto bilateral rails for at least 10 steps without report of pain nor dyspnea NOT MET 9. Independent with home exercise program NOT MET 10. Good static and dynamic standing balance/tolerance NOT MET DISCHARGE RECOMMENDATIONS: Neurologic consult recommended to identify root cause for increasing balance impairment. No equipment needs at this time. Patient will benefit from home health PT services in order to assess home safety, identify additional safety equipment needs, and identify readiness for OP PT services. TREATMENT CODE/TIME: 62707 x 16 minutes, 45272 x 15 minutes beginning at 14:51 PM. Thank you for the opportunity to participate in the care of this patient. Bernie Blevins PT, DPT, CLT [facility] [place], [place]
[2020-06-14] MEDS: Aspirin E.C. 81 MG TABEC PO (16:46)
--- NOTE | 2020-06-14 16:47 | NUR.NOTE ---
Nursing Note: 06/14/2020 16:47 Nurse administered daily baby aspirin at this time per Sharon Ivey and patient.
[2020-06-14] MEDS: Insulin Aspart 300 UNITS/3 ML PEN SC ×2 (17:33→21:21)
[2020-06-14] MEDS: Triamcinolone 0.1% CR 15 GM TUBE TP (19:48)
[2020-06-14] MEDS: Pravastatin 40 MG TAB PO (19:48)
[2020-06-14] MEDS: Carvedilol 25 MG TAB PO (19:49)
[2020-06-14] MEDS: Cyclobenzaprine 10 MG TAB PO (21:21)
[2020-06-15 03:35] VITALS: BP 108/66; PULSE 61; RESP 18; TEMP 35.7; O2SAT 97
[2020-06-15] MEDS: Levothyroxine 50 MCG TAB PO (05:55)
[2020-06-15 07:16] VITALS: BP 119/75; PULSE 63; RESP 17; TEMP 35.5; O2SAT 96
[2020-06-15] MEDS: Budesonide/Formoterol 160/4.5 6 GM 60 PUFF INH IH (07:42)
[2020-06-15] MEDS: Triamcinolone 0.1% CR 15 GM TUBE TP (08:20)
[2020-06-15] MEDS: Normal Saline Flush 10 ML SYR IVP ×2 (08:20→16:42)
[2020-06-15] MEDS: Multivitamin w/Minerals TAB 1 TAB PO (08:21)
[2020-06-15] MEDS: FLUoxetine 20 MG CAP PO (08:21)
[2020-06-15] MEDS: Cyanocobalamin 500 MCG TAB 1000 MCG PO (08:21)
[2020-06-15] MEDS: Magnesium Oxide 400 MG TAB PO (08:21)
[2020-06-15] MEDS: Heparin 5,000 UNITS/ML VIAL 5000 UNITS SC ×2 (08:21→16:41)
[2020-06-15] MEDS: Omega-3 Fatty Acids 1000 MG CAP 4000 MG PO (08:21)
[2020-06-15] MEDS: Carvedilol 25 MG TAB PO (08:22)
[2020-06-15] MEDS: Spironolactone 25 MG TAB PO (08:22)
[2020-06-15] MEDS: Ascorbic Acid 500 MG TAB 1000 MG PO (08:22)
[2020-06-15] MEDS: Omeprazole 20 MG CAPCR PO (08:22)
[2020-06-15] MEDS: Vitamins B Comp w/C TAB 1 TAB PO (08:22)
[2020-06-15] MEDS: Tamsulosin 0.4 MG CAPCR PO (08:22)
[2020-06-15] MEDS: oxyCODONE 5 MG TAB PO (08:22)
[2020-06-15] MEDS: Furosemide 80 MG TAB PO (08:22)
[2020-06-15] MEDS: Aspirin E.C. 81 MG TABEC PO (08:22)
[2020-06-15 09:14] LABS: Abs Immature Grans 0.01 k/cumm (0.0-0.09); Absolute Basophil Count 0.01 k/cumm (0.0-0.2); Absolute Eosinophil Count 0.24 k/cumm (0.0-0.7); Absolute Lymphocyte Count 1.44 k/cumm (1.2-3.4); Absolute Monocyte Count 0.76 k/cumm (0.11-0.7); Absolute Neutrophil Count 4.47 k/cumm (1.2-6.7); Basophils % 0.1; Eosinophils % 3.5; HCT 41.2 % (40.0-50.0); HGB 13.8 g/dL (13.5-17.5); Immature Grans % 0.1 %; Lymphocytes % 20.8; Mean Corp. HGB Concentration 33.5 g/dL (32.0-36.0); Mean Corpuscular Hemoglobin 32.5 pg (27.0-33.0); Mean Corpuscular Volume 96.9 fL (80-95); Mean Platelet Volume 9.8 fL (8.0-11.0); Neutrophils % 64.5; Platelet Count 219 x1000/uL (130-400); RBC 4.25 m/cumm (4.50-6.00); RBC Distribution Width 12.5 % (11.8-14.1); White Blood Cell Count 6.93 k/cumm (4.4-10.8)
--- NOTE | 2020-06-15 09:17 | PDOC.CMIN ---
- If Service Date Differs Date of service: 06/15/20 Time of Service: 16:16 Care Management Initial Assess REASON FOR HOSPITALIZATION:: Chest Pain PAST MEDICAL HISTORY/PAST SURGICAL HISTORY:: Apical mural thrombus, A-fib and A-flutter, Mena's palsy, BPH, CAD, Cardiomyopathy, CHF, COPD, DM, HTN, Hypothyroidism, Obesity, ORLIN, Pulmonary Hypertension, renal insufficency, appendectomy, colonoscopy, hx of cardiac cath PREVIOUS FUNCTIONAL STATUS/SOCIAL/FAMILY SUPPORTS:: Candelario resides with his , Ailyn in [place], [place]. He was previously independent at baseline though he reports he no longer drives. He reports becoming increasingly weaker secondary to COPD and heart failure. He is agreeable to having home health PT ordered upon discharge. CURRENT FUNCTIONAL STATUS:: Candelario is sitting on the edge of the bed, his at his bedside. He is friendly in interaction and shares no concerns at this time. Has patient been provided with info about the portal/API?: Yes Did the patient sign up for the portal?: Yes (Previously ) CODE STATUS:: Full Code INSURANCE COVERAGE / FINANCIAL ISSUES:: [employer]. Medicare CURRENT HOME/COMMUNITY SERVICES/EQUIPMENT:: [employer]. PRIMARY CARE PHYSICIAN:: Deepa Oliva. POTENTIAL DISCHARGE NEEDS:: CM coordinated referral to [facility]: for new PT orders previous to determination that Candelario requires transfer to tertiary at this time; CM notified of determination. PATIENT/FAMILY EDUCATION NEEDS:: Review of discharge instructions, discuss Ask Me Three. ANTICIPATED BARRIERS TO DISCHARGE:: None identifed. TRANSPORTATION:: Via EMS coordinated by RN Fluorescent Lighting Model Maker. PLAN:: Per MD, Candelario has been accepted to [facility] pending bed availability. He will transport via EMS coordinated by RN Fluorescent Lighting Model Maker.
[2020-06-15 11:18] VITALS: BP 117/70; PULSE 64; RESP 19; TEMP 36.6; O2SAT 97
[2020-06-15 11:30] VITALS: O2SAT 97
[2020-06-15 15:51] VITALS: BP 116/56; PULSE 66; RESP 18; TEMP 37.1; O2SAT 97
[2020-06-15] MEDS: Insulin Aspart 300 UNITS/3 ML PEN SC (16:41)
== END 2020-06-15 18:09 | disposition short-term general hospital (02) ==
LOC: ER 22:40 → MS 23:40
PROVIDERS: Internal Medicine; Admitting Provider Internal Medicine; Emergency Provider Student in an Organized Health Care Education/Training Program; PCP Family Medicine; Visit Provider Internal Medicine
DX: R07.89 Other chest pain (principal); I25.10 Atherosclerotic heart disease of native coronary artery without angina pectoris; I50.82 Biventricular heart failure; Z11.59 Encounter for screening for other viral diseases; J44.9 Chronic obstructive pulmonary disease, unspecified; S32.10XD Unspecified fracture of sacrum, subsequent encounter for fracture with routine healing; Z99.81 Dependence on supplemental oxygen; I27.20 Pulmonary hypertension, unspecified; G47.33 Obstructive sleep apnea (adult) (pediatric); G51.0 Bell's palsy; I42.9 Cardiomyopathy, unspecified; E11.9 Type 2 diabetes mellitus without complications; I11.0 Hypertensive heart disease with heart failure; E03.9 Hypothyroidism, unspecified; E66.9 Obesity, unspecified; Z68.35 Body mass index [BMI] 35.0-35.9, adult; Z79.84 Long term (current) use of oral hypoglycemic drugs
CPT/HCPCS: 36415; 71275; 78452; 80048; 80053; 80061; 93005; 93016; 93018; 93306; 94640; 97110; 97162; 97530; 99217; 99220; 99285; U0003; 83036; 83735; 83880; 84443; 84484; 85025; 85610; 85730; 93010; 93017; 99225; G0378; J1644; J2785; J3490

== ENCOUNTER 2021-04-28 12:01 | Outpatient (REF) | payer MEDICARE, OTHER, SELFPAY ==
[2021-04-28 19:50] LABS: Abs Immature Grans 0.02 10^3/uL (0.0-0.06); Absolute Basophil Count 0.03 10^3/uL (0.0-0.2); Absolute Lymphocyte Count 1.88 10^3/uL (1.2-3.4); Absolute Monocyte Count 0.77 10^3/uL (0.1-0.8); Absolute Neutrophil Count 3.94 10^3/uL (1.2-6.7); Basophils % 0.4; Eosinophils % 2.9; HGB 12.5 g/dL (13.5-17.5); Immature Grans % 0.3; Lymphocytes % 27.5; MCH 33.6 pg (27.0-33.0); MCHC 32.9 % (32.0-36.0); MCV 102.2 fL (80-95); MPV 10.9 fL (8.0-11.0); Monocytes % 11.3; Neutrophils % 57.6; Nucleated RBC 0 %; Platelet Count 200 10^3/uL (130-400); RBC 3.72 10^6/uL (4.36-5.78); RDW 12.6 % (11.8-14.1); RDW-SD 46.5 fL; WBC 6.84 10^3/uL (4.4-10.8)
[2021-04-28 19:57] LABS: ESR 17 mm/hr (0-20)
[2021-04-28 20:09] LABS: Hemoglobin A1C 7.1 % (<5.7)
[2021-04-28 20:14] LABS: ALT 42 U/L (16-63); AST 20 U/L (15-37); Albumin 3.8 g/dL (3.4-5.0); Alkaline Phosphatase 103 U/L (46-116); Anion Gap 5.1 mmol/L (3-11); BUN 16 mg/dL (7-18); Bilirubin, Total 0.6 mg/dL (0.2-1.0); CO2 31.9 mmol/L (21.0-32.0); CREATININE 0.9 mg/dL (0.70-1.30); Calcium 9.5 mg/dL (8.5-10.1); Calculated LDL 30 mg/dL (<100); Chloride 105 mmol/L (98-107); Cholesterol 92 mg/dL (<200); Glucose 114 mg/dL (74-106); HDL Cholesterol 27 mg/dL (40-60); Magnesium 1.8 mg/dL (1.8-2.4); Potassium 4.3 mmol/L (3.5-5.1); Sodium 142 mmol/L (136-145); TSH 3.06 uIU/mL (0.36-3.74); Total Protein 6.7 g/dL (6.4-8.2); Triglyceride 176 mg/dL (<150); Vitamin B12 255 pg/mL (193-986)
== END 2021-04-28 12:02 | disposition home or self-care (01) ==
LOC: NCHCN 12:01
PROVIDERS: PCP Family Medicine; Visit Provider Family Medicine
DX: R53.83 Other fatigue (principal); E53.8 Deficiency of other specified B group vitamins; E11.9 Type 2 diabetes mellitus without complications; I42.9 Cardiomyopathy, unspecified; R07.9 Chest pain, unspecified; G62.9 Polyneuropathy, unspecified
CPT/HCPCS: 80053; 80061; 85652; 82607; 83036; 83735; 84443; 85025

== ENCOUNTER 2021-05-13 22:02 | Emergency (ER) | payer MEDICARE, OTHER, SELFPAY ==
[2021-05-13] VITALS (12 sets, daily range): BP systolic 99–110; BP diastolic 52–58; PULSE 61–66; RESP 15–16; TEMP 36.5; O2SAT 99–100
--- NOTE | 2021-05-13 00:40 | DI.CT_ITS ---
Exam(s) CT CHEST PE CTA EXAM: CT CHEST PE CTA CLINICAL HISTORY: pleuritic chest pain. TECHNIQUE: Imaging Protocol: CT angiography of the chest was performed using pulmonary embolus gaston col. Multi planar reconstructions were performed. CONTRAST MATERIAL: Intravenous: Omnipaque 350 Contrast volume: 100 cc COMPARISON: CT CT CHEST PE CTA from 06/13/2020 FINDINGS: CHEST: PULMONARY ARTERIES: There are no intraluminal filling defects to suggest acute pulmonary emboli. LUNGS: There is a small noncalcified nodule in the right upper lobe which measures 5 x 5 millimeters and exhibits minimal change from prior CT scan May 2020. There are no other focal right lung findin gs.. In the opposite-left lung there is a noncalcified 8 x 6 millimeter nodular infiltrate in the lingular segment, not previously present. No other focal left lung findings. No pleural effusions on either side. There are no significant focal findings in the trachea and mainstem bronchi. MEDIASTINUM: There is no hilar nor mediastinal adenopathy. Visualized thyroid unremarkable.Bilateral gynecomastia. CARDIAC: Mild cardiomegaly. No pericardial effusion.Caliber of the thoracic aorta is within normal l imits. There is no significant shift of the interventricular septum. PARTIALLY VISUALIZED UPPERMOST ABDOMEN: Hepatic steatosis. Also subtle density in the gallbladder ne ck partially included in the field of view. Visualized CBD is not dilated. OSSEOUS: No significant osseous lesions.. IMPRESSION: 1. No evidence of acute pulmonary emboli. No evidence of pulmonary infarction.No pleural effusions. 2. There is subtle noncalcified 5 millimeter x 5 millimeter nodule in the right upper lobe which exhi bits minimal if any significant change when compared to the prior CT scan of May 2020. In addition, there is an 8 x 6 millimeter nodular infiltrate in the lingular segment of the opposite-left lung, n ot previously present. No pleural effusions. No intrathoracic adenopathy. 3. Cardiomegaly. No evidence of right heart failure. Hepatic steatosis. Subtle density in the gallbladder neck region. Recommend follow-up ultrasound RADIATION DOSE DELIVERED: 524.87mGy.cm Total DLP DATA REPOSITORY: All CT scans at this facility are submitted to the National Radiology Data Registry (NRDR) Dose Index Registry (DIR) with the [employer] ([employer]). RADIATION OPTIMIZATION: All CT scans at this facility use at least one of these dose optimization te chniques: automated exposure control; mA and/or kV adjustment per patient size (includes targeted exa ms where dose is matched to clinical indication); or iterative reconstruction.
--- NOTE | 2021-05-13 21:45 | RT.EKG_ITS ---
APPROVED REPORT Exam: Resting ECG Reason for Exam: chest pain Patient Location: E HR:66 bpm ECG Measurements Heart Rate 66 AXIS SD 207 P -18 QRSd 104 QRS -43 QT 440 T 1 QTc 461 Conclusion Incomplete analysis due to missing data in precordial lead(s) Sinus rhythm...normal P axis, V-rate 60- 99 Inferior infarct, old...Q >35mS, II III aVF
--- NOTE | 2021-05-13 22:21 | ED.GENADUL_ITS ---
Discharge Plan Disposition Patient Disposition: AGAINST MEDICAL ADVICE Discharge Details Clinical Impression: Chest pain Primary Care Provider: Deepa Oliva V ED Provider: Reji Byrnes Home Meds and New Rx's Prescriptions: No Action tamsulosin 0.4 MG capsule 0.4 mg PO BID RF: 0 aspirin [Aspir-Low] 81 MG tablet,delayed release (DR/EC) 81 mg PO DAILY AM RF: 0 albuterol sulfate [Proventil HFA] 1 PUFF HFA aerosol inhaler 2 gm Inhalation DIRECTED Qty: 1 RF: 3 spironolactone 25 MG tablet 25 mg PO DAILY RF: 0 furosemide [Lasix] 80 MG tablet 80 mg PO DAILY RF: 0 lisinopril [Prinivil] 5 MG tablet 5 mg PO DAILY RF: 0 ascorbic acid (vitamin C) [Vitamin C With Dejah Hips] 1,000 MG tablet 1 tab PO PRN PRNRF: 0 saw palmetto 500 MG capsule 450 mg PO PRN PRNRF: 0 cyclobenzaprine 10 MG tablet 10 mg PO HS RF: 0 magnesium oxide 400 MG tablet 400 mg PO DAILY Qty: 30 RF: 0 fluoxetine [Prozac] 20 mg Capsule 20 mg PO DAILY RF: 0 budesonide 0.5 mg/2 mL Suspension For Nebulization 0.5 mg INHALATION DAILY RF: 0 Perforomist 20 mcg/2 mL Solution For Nebulization INHALATION RF: 0 carvedilol 25 mg Tablet 25 mg PO BID RF: 0 cyanocobalamin (vitamin B-12) 1,000 mcg Tablet 1,000 mcg PO DAILY RF: 0 levothyroxine [Synthroid] 50 mcg Tablet 50 mcg PO DAILY RF: 0 pantoprazole 20 mg Tablet,Delayed Release (Dr/Ec) 20 mg PO DAILY RF: 0 atorvastatin 40 mg Tablet 40 mg PO DAILY RF: 0 clopidogrel 75 mg Tablet 75 mg PO DAILY RF: 0 nitroglycerin [Nitrostat] 0.4 mg Tablet, Sublingual 0.4 mg SUBLINGUAL Q5-15M PRNRF: 0 Discharge Instructions Instructions: Against Medical Advice (ED) Additional Instructions: You are leaving AGAINST MEDICAL ADVICE. Please return to the emerge department at any time for further work-up and treatment as recommended. Please follow-up with your primary care physician next week. You should have a stress test performed as soon as possible. Please do not perform any exertional activities until cleared to do so. You should rest. Take your medicine as prescribed. Medical Decision Making <Allen Roblero MD - Last Filed: 05/13/21 23:16> 75 yo male with hx of cad s/p multiple stents, copd, htn, hld, dm, who comes in with chest pain that had been worsening since 8am and was doing a lot of work cutting wood today. Denies diaphoresis, dyspnea, nausea/vomit. He localizes the pain to the left lateral chest in lateral clavicular line over the mid chest. He has no rashes on exam. He is unsure if exertion made the pain worse but feels deep breaths was making the pain worse. He took 2 nitro at home and was given aspirin with ems and now has no pain on my exam. EKG without ischemic findings, will send troponin. Given the pleuritic pain will obtain CTA to eval for PE. No tearing back pain and normal vascular exam so doubt dissection pt remains stable, labs unremarkable awaiting ct. Patient will be signed out to oncoming provider pending ct results. I did did discuss with patient with his history we would normally admit to the hospital for observation even with negative troponins. He has the capacity to make his own decisions and understands if he chooses to leave there is a chance of and permanenet disability and he is willing to accept these risks. He is willing to stay for a 3 hour troponin. Will be signed out pending ct results and repeat troponin Differential Diagnosis Differential Diagnosis: acs, pe, chest wall pain Lab Data Lab results reviewed: Yes I reviewed the patient's lab results. ECG Data Attestation: I personally reviewed and interpreted this ECG (s) as follows: Prior ECG tracings: available for review Interpretation: sinus rhythm, rate of 66, no acute st t wave ischemic findings <Reji Byrnes MD - Last Filed: 05/14/21 02:18> Care signed out by Dr. Roblero. Please see his documentation regarding initial ED presentation course. Labs reviewed: Troponin and delta troponin negative. Repeat EKG was reviewed and interpreted by me: Please see report. No significant change from prior. CTA of the chest was reviewed and interpreted by radiology: Cholelithiasis noted, no pulmonary embolism, atherosclerotic disease, no dissection. All results were reviewed with the patient and his . Plan for admission for serial troponin and monitoring. Plan discussed with the patient and he declines and wishes to leave AGAINST MEDICAL ADVICE. I had a discussion with the patient and his about my diagnostic/treatment plan. Patient declines plan and wishes to leave against medical advise. I reiterated my concerns to the patient and his and explained the risks of leaving prior to completion of workup and treatment. I specifically emphasized the possibility of life-threatening or lifestyle modifying disease that would not be appropriately treated if they leave. Patient and his verbalized understanding of my concerns and the potential for life threatening or lifestyle modifying disease. Patient has capacity to make informed decision. His agrees with his decision. I again explained my concerns and urged the patient to stay for treatment as outlined. Patient continued to refuse. I then discussed potential less ideal alternatives to diagnostic/treatment plan as outlines and patient refused. I recommended that the patient follow-up with primary care physician RAFAEL or return to the Emergency Department at any time for further treatment. I will try to expedite outpatient stress test. Patient notes apparently had an allergy to chemical stress test and may require treadmill because of this. Patient has follow-up with PCP early next week. HPI <Allen Roblero MD - Last Filed: 05/13/21 23:16> General Mode of arrival: ambulatory . Date/Time Provider Initiated Documentation: 05/13/21 22:21 . Limitations to Documentation: no limitations . Information obtained by: patient . History of Present Illness 75 year old M presents to the emergency department with the chief complaint of chest pain, described as moderate, Quality is described as aching, Patient started experiencing this hour(s) (14) No relieving factors improve symptom(s), No exacerbating factors reported . Patient notes no other symptoms.. Related Data Home Medications Medication Instructions Recorded Confirmed albuterol sulfate [Proventil HFA] 2 gm INHALATION DIRECTED #1 inh 09/01/13 05/13/21 aspirin [Aspir-Low] 81 mg PO DAILY AM 09/01/13 05/13/21 tamsulosin 0.4 mg PO BID 09/01/13 05/13/21 furosemide [Lasix] 80 mg PO DAILY 11/11/13 05/13/21 lisinopril [Prinivil] 5 mg PO DAILY 11/11/13 05/13/21 spironolactone 25 mg PO DAILY 11/11/13 05/13/21 ascorbic acid (vitamin C) [Vitamin 1 tab PO PRN PRN 01/21/15 05/13/21 C With Dejah Hips] saw palmetto 450 mg PO PRN PRN 01/21/15 05/13/21 cyclobenzaprine 10 mg PO HS 03/28/17 05/13/21 magnesium oxide 400 mg PO DAILY #30 tab 03/28/17 05/13/21 atorvastatin 40 mg PO DAILY 05/13/21 05/13/21 budesonide 0.5 mg INHALATION DAILY 05/13/21 05/13/21 carvedilol 25 mg PO BID 05/13/21 05/13/21 clopidogrel 75 mg PO DAILY 05/13/21 05/13/21 cyanocobalamin (vitamin B-12) 1,000 mcg PO DAILY 05/13/21 05/13/21 fluoxetine [Prozac] 20 mg PO DAILY 05/13/21 05/13/21 formoterol fumarate [Perforomist] INHALATION 05/13/21 levothyroxine [Synthroid] 50 mcg PO DAILY 05/13/21 05/13/21 nitroglycerin [Nitrostat] 0.4 mg SUBLINGUAL Q5-15M PRN 05/13/21 05/13/21 pantoprazole 20 mg PO DAILY 05/13/21 05/13/21 Previous Rx's Medication Instructions Recorded albuterol sulfate [Proventil HFA] 2 gm INHALATION DIRECTED #1 inh 09/01/13 magnesium oxide 400 mg PO DAILY #30 tab 03/28/17 Allergies Allergy/AdvReac Type Severity Reaction Status Date / Time Penicillins Allergy Severe Anaphylaxsi Unverified 05/13/21 23:09 s donepezil [From Aricept] Allergy Mild mild per Unverified 05/13/21 23:09 pcp chart adenosine Allergy Unverified 05/13/21 23:09 metformin [From Glucophage] Allergy per pcp Unverified 05/13/21 23:09 chart--moderate codeine AdvReac Intermediate Dizziness/L Unverified 05/13/21 23:09 ightheade General Stated Complaint: Chest Pain DANIEL: 2 Review of Systems <Allen Roblero MD - Last Filed: 05/13/21 23:16> All systems reviewed & are unremarkable except as noted in HPI and below Constitutional Constitutional: Denies chills, Denies fever(s) and Denies weakness Cardiovascular Cardiovascular: Denies dyspnea Respiratory Respiratory: Denies cough and Denies dyspnea Gastrointestinal Gastrointestinal: Denies abdominal pain, Denies nausea and Denies vomiting Musculoskeletal Musculoskeletal: Denies joint swelling Neurologic Neurologic: Denies weakness Psychiatric Psychiatric: Denies depression PFSH <Allen Roblero MD - Last Filed: 05/13/21 23:16> Medical History (Updated 05/13/21 @ 23:16 by Allen Roblero MD) Apical mural thrombus Atrial fib/flutter, transient Mena's palsy BPH (benign prostatic hyperplasia) CAD (coronary artery disease) Cardiomyopathy CHF (congestive heart failure) COPD (chronic obstructive pulmonary disease) DM (diabetes mellitus) HTN (hypertension) Hypothyroidism Obesity (BMI 30.0-34.9) ORLIN (obstructive sleep apnea) Pulmonary hypertension Renal insufficiency Surgical History (Updated 06/13/20 @ 21:44 by Aziza Arias MD) Appendectomy Colonoscopy - MAC (08/04/16) Hx of cardiac cath in [place] in the s - unknown intervention [facility] [place] 2012 - clean coronaries, severe pulmonary hypertension, no prior stent found Family History (Updated 06/13/20 @ 23:01 by Aziza Arias MD) Mother Cervical cancer Other Colon cancer Social History Smoking/Tobacco Use Status: Former Tobacco Use Smoking risk assessment performed?: Yes Drug use: Never Details: states he has increased his alcohol use recently due to the heat Do you feel safe at home: Yes Do you feel safe in your relationship?: Yes Exam <Allen Roblero MD - Last Filed: 05/13/21 23:16> Const General: no acute distress Orientation: alert [facility] Head: normal to inspection Ears: external ears normal General nose exam: external nose normal Mouth: moist mucous membranes Eyes General: appearance normal, both eyes and all related structures Neck Neck: normal visual inspection Resp Effort & Inspection: normal respiratory effort and able to speak in complete sentences Cardio Rate: regular rate Skin General skin exam: no rashes or lesions noted Neuro General: patient alert and patient oriented x3 Extrem General: normal to inspection Psych Mental Status: mental status grossly normal Course <Allen Roblero MD - Last Filed: 05/13/21 23:16> Vital Signs Vital signs: Vital Signs Temperature 36.5 C 05/13/21 22:07 Pulse 66 05/13/21 22:07 Respiratory Rate 15 05/13/21 22:07 Blood Pressure 100/52 L 05/13/21 22:07 Pulse Oximetry 100 05/13/21 22:07 Temperature 36.5 C 05/13/21 22:07 Temperature Source Tympanic 05/13/21 22:07 Pulse 66 05/13/21 22:07 Respiratory Rate 15 05/13/21 22:07 Blood Pressure 100/52 L 05/13/21 22:07 Blood Pressure Position Sitting 05/13/21 22:07 Pulse Oximetry 100 05/13/21 22:07 Oxygen Delivery Method Room Air 05/13/21 22:07 Oxygen Flow Rate 0 05/13/21 22:07 Sign Out <Allen Roblero MD - Last Filed: 05/13/21 23:16> Sign Out Data: Sign Out Comment: history of coronary artery disease s/p stenting, initial troponin unremarkable pending ct. Declines admission for observation, willing to stay for delta troponin Last updated by Allen Roblero MD at 05/13/21 23:17
[2021-05-13 22:28] LABS: Abs Immature Grans 0.03 10^3/uL (0.0-0.06); Absolute Basophil Count 0.02 10^3/uL (0.0-0.2); Absolute Eosinophil Count 0.24 10^3/uL (0.0-0.7); Absolute Lymphocyte Count 2.28 10^3/uL (1.2-3.4); Absolute Monocyte Count 0.99 10^3/uL (0.1-0.8); Absolute Neutrophil Count 4.78 10^3/uL (1.2-6.7); Basophils % 0.2; Eosinophils % 2.9; HCT 34.9 % (40.0-50.0); HGB 11.9 g/dL (13.5-17.5); Immature Grans % 0.4; Lymphocytes % 27.3; MCH 33.6 pg (27.0-33.0); MCHC 34.1 % (32.0-36.0); MCV 98.6 fL (80-95); Monocytes % 11.9; Neutrophils % 57.3; Nucleated RBC 0 %; Platelet Count 180 10^3/uL (130-400); RBC 3.54 10^6/uL (4.36-5.78); RDW 12.2 % (11.8-14.1); RDW-SD 44.4 fL; WBC 8.34 10^3/uL (4.4-10.8)
[2021-05-13 22:43] LABS: ALT 48 U/L (16-63); AST 34 U/L (15-37); Albumin 3.6 g/dL (3.4-5.0); Alkaline Phosphatase 78 U/L (46-116); Anion Gap 10.5 mmol/L (3-11); BUN 20 mg/dL (7-18); Bilirubin, Total 0.6 mg/dL (0.2-1.0); CO2 26.5 mmol/L (21.0-32.0); CREATININE 1.5 mg/dL (0.70-1.30); Calcium 9.2 mg/dL (8.5-10.1); Chloride 103 mmol/L (98-107); Glucose 123 mg/dL (74-106); Magnesium 1.8 mg/dL (1.8-2.4); Potassium 4.2 mmol/L (3.5-5.1); Sodium 140 mmol/L (136-145); Total Protein 6.6 g/dL (6.4-8.2)
[2021-05-13 22:44] LABS: Troponin I < 0.05 ng/mL (<0.06)
[2021-05-14] VITALS: O2SAT 100
[2021-05-14 00:01] VITALS: BP 116/53; PULSE 63; O2SAT 100
[2021-05-14 00:10] VITALS: O2SAT 99
[2021-05-14 00:16] VITALS: BP 121/54; PULSE 63; O2SAT 99
[2021-05-14 00:20] VITALS: O2SAT 99
--- NOTE | 2021-05-14 01:00 | RT.EKG_ITS ---
APPROVED REPORT Exam: Resting ECG Reason for Exam: chest pain Patient Location: E HR:61 bpm ECG Measurements Heart Rate 61 AXIS AR [id number] P [id number] QRSd 101 QRS -58 QT [id number] T -30 QTc 0 Conclusion Gender not entered, assumed to be male for purpose of ECG interpretation Atrial fibrillation...? atrial activity Ventricular premature complex...V complex w/ short R-R interval Inferior infarct, old...Q >35mS, II III aVF
[2021-05-14] MEDS: Omnipaque 350 MG/ML 100 ML BTL IJ (01:09)
[2021-05-14] MEDS: Normal Saline - Diluent 50 ML VIAL IV (01:10)
--- NOTE | 2021-05-14 01:14 | DI.VRAD_ITS ---
PROCEDURE INFORMATION: Exam: CTA Chest With Contrast Exam date and time: 05/13/2021 10:28 PM Age: 75 years old Clinical indication: On breathing; Patient HX: Pleuritic chest pain TECHNIQUE: Imaging protocol: Computed tomographic angiography of the chest with contrast. 3D rendering (Not supervised by radiologist): MIP and/or 3D reconstructed images were created by the technologist. Radiation optimization: All CT scans at this facility use at least one of these dose optimization techniques: automated exposure control; mA and/or kV adjustment per patient size (includes targeted exams where dose is matched to clinical indication); or iterative reconstruction. Contrast material: OMNI-PAQUE 350; Contrast volume: 100 ml; Contrast route: INTRAVENOUS (IV); COMPARISON: CT CHEST PE CTA 06/13/2020 7:46 PM FINDINGS: Pulmonary arteries: No pulmonary emboli. Aorta: Atherosclerotic thoracic aorta. Lungs: No consolidation. No masses. Pleural spaces: Unremarkable. No pneumothorax. No pleural effusion. Heart: Coronary arterial calcifications. Lymph nodes: Unremarkable. No enlarged lymph nodes. Gallbladder and bile ducts: Cholelithiasis. Bones/joints: Degenerative changes within thoracic spine. Soft tissues: Unremarkable. IMPRESSION: No pulmonary emboli. Dictated and Authenticated by: Ivan Byrnes MD. Ordering:JOSE LUIS Villa MD
[2021-05-14 01:45] LABS: Troponin I < 0.05 ng/mL (<0.06)
[2021-05-14 02:30] VITALS: BP 121/54; PULSE 63; RESP 16; TEMP 36.5; O2SAT 99
== END 2021-05-14 02:30 | disposition left against medical advice (07) ==
PROVIDERS: Emergency Medicine; Emergency Provider Student in an Organized Health Care Education/Training Program; PCP Family Medicine
DX: R07.9 Chest pain, unspecified (principal); Z53.29 Procedure and treatment not carried out because of patient's decision for other reasons
CPT/HCPCS: 71275; 80053; 93005; 99285; 83735; 84484; 85025; 93010; 99283; J3490

== ENCOUNTER 2021-05-17 01:17 | Outpatient (CLI) | payer MEDICARE, OTHER, SELFPAY ==
--- NOTE | 2021-05-17 | ETT_ITS ---
APPROVED REPORT Exam: Exercise Treadmill Patient Location: Out-Patient Room/Bed: Stress Nurse: Blessing Azar RN Ordering Provider:CHUY TORRES, Contact Number: BMI: 32.68 Baseline Rhythm: Sinus Rhythm Comment: Incomplete RBBB, T wave inversion in lead III Indications: CHEST PAIN Medical History Medical History: Pulmonary HTN, COPD, HTN, HLD, DM, CAD, CHF, AFIB/FLUTTER, Cardiomyopathy, ORLIN, Obes ity Cardiac Medications: Nitro SL, Clopidogrel, Pantoprazole, Atorvastatin, Carvedilol, Spironolactone, M agnesium oxide, Lisinopril, Furosemide, ASA, Albuterol sulfate, Formoterol fumarate Allergies: Penicillins, Donepezil, Adenosine, Codeine, Metformin Cardiac Risk Factors: FHX of CAD, HTN, Hyperlipidemia, DM, COPD, Smoking (former), Obesity, CVD Previous Cardiac Procedures: PCI w/ stents, last in 2019. Pretest Chest Pain Characteristics: No chest pain Exercise History: Sedentary Physical Disabilities: None noted before exercise. Unsteady gait with exertion. Lung Sounds: Clear to auscultation Heart Sounds: Regular Stress Test Details Test: Exercise stress testing was performed using a Fernando protocol. Rest Stress HR Resting HR Supine: 64 bpm Max Heart Rate (APMHR): 144 bpm Resting HR Standin bpm Target HR (85% APMHR): 122 bpm Max HR Achieved: 110 bpm % of APMHR: 76 Recovery HR: 72 bpm HR response to stress: Normal HR response to stress Comment: NONDIAGNOSTIC TEST - UNABLE TO REACH TARGET HR BP Resting BP Supine: 126/72 mmHg Resting BP Standin/70 mmHg Max BP: 146/68 mmHg Recovery BP: 122/74 mmHg BP response to stress: Normal blood pressure response to stress. ECG Resting ECG: Sinus Rhythm, incomplete RBBB Ectopy: None Comment: T wave inversion in lead III Stress ECG: Sinus Tachycardia ST Change: No significant ST segment changes noted Arrhythmia: None Comment: T wave flipped upright in lead III Recovery ECG: Sinus Rhythm Recovery ST Change: No significant ST segment changes noted Recovery Arrhythmia: PACs, PVC Comment: T wave returned to baseline inversion Clinical Reason for Termination: Unsafe to continue d/t unsteady gait. Stress Symptoms: Dyspnea, Leg Fatigue, General Fatigue Exercise duration: 3 min24 sec Highest Stage Reached: Stage 2: 2.5 mph at 12% grade. Exercise capacity: 5.04 METs Jeter Treadmill Score: 3 Rate Pressure Product: 15074 Stress ECG Conclusion 1. The patient exercised for 3 minutes (5 METS). Exercise was stopped due to gait unsteadiness as it was deemed unsafe to continue. 2. The patient's blood pressure augmented appropriately but he failed to meet target heart rate. 3. There was no evidence of ischemia on the ECG portion of the exam at this level of stress but unfor tunately this test is nondiagnostic due to inability to reach goal target heart rate. 4. Consider alternate ischemic evaluation modality should clinical suspicion remains high. Jeter Treadmill Score is 3 which is Moderate risk. Stress Test Summary STAGE Time (mins) Speed (mph) Grade (%) HR BP SYMPTOMS METS Supine 64 126/72 Standing 69 118/70 1 3 1.7 10 107 134/68 4.6 1 min recovery 92 146/68 3 min recovery 66 140/70 6 min recovery 72 122/74 Nondiagnostic test d/t patient not reaching target HR. Going into the second stage patient began walk ing with unsteady gait and stumbled. It was determined by nursing that patient was unsafe to continue on treadmill, and test was terminated at that time.
== END 2021-05-17 01:37 ==
PROVIDERS: PCP Family Medicine; Visit Provider Student in an Organized Health Care Education/Training Program
DX: R07.9 Chest pain, unspecified (principal); I45.19 Other right bundle-branch block; Z53.8 Procedure and treatment not carried out for other reasons; R26.81 Unsteadiness on feet; Z82.49 Family history of ischemic heart disease and other diseases of the circulatory system; I10 Essential (primary) hypertension; E78.5 Hyperlipidemia, unspecified; E11.9 Type 2 diabetes mellitus without complications; J44.9 Chronic obstructive pulmonary disease, unspecified; Z87.891 Personal history of nicotine dependence; E66.9 Obesity, unspecified; I25.10 Atherosclerotic heart disease of native coronary artery without angina pectoris
CPT/HCPCS: 93016; 93018; 93017

== ENCOUNTER 2021-06-09 01:22 | Outpatient (CLI) | payer MEDICARE, OTHER, SELFPAY ==
--- NOTE | 2021-06-09 | DI.US_ITS ---
Exam(s) US ABDOMEN EXAM: US ABDOMEN CLINICAL HISTORY: GALLSTONES,K80.20,LUQ PAIN, R10.12 TECHNIQUE: Ultrasound of complete upper abdomen performed using standard protocol. COMPARISON: US US ECHOCARDIOGRAM from 06/14/2020 FINDINGS: There is no ascites evident. LIVER: Liver appears hyperechoic indicating an element of steatosis. There are no discrete focal hep atic lesions identified. Liver size is upper normal. GALLBLADDER/BILIARY: There appears to be a subtle mobile gallstone measuring approximately 9 millimet ers. Gallbladder wall is not thickened no or edematous. There is no pericholecystic fluid. The common hepatic duct isnot dilated, measuring 4mm at the level of ghanshyam hepatis. PANCREAS: There is no evidence of pancreatic mass nor dilatation of the pancreatic duct. SPLEEN: The spleen is not enlarged and there are no intrasplenic lesions evident. KIDNEYS:Kidneys exhibit normal size with no evidence of solid mass, calculus, nor hydronephrosis. No cortical cysts evident. ABDOMINAL AORTA: Limited study due to overlying bowel gas. IVC: Normal diameter where visualized. IMPRESSION: 1. Cholelithiasis. There is a solitary 9 millimeter mobile gallstone. No evidence of acute cholecy stitis nor dilatation of the biliary tree 2. Hepatic steatosis. Correlation appropriate hepatic blood work recommended. 3. There is no ascites. DATA REPOSITORY:
== END 2021-06-09 01:42 ==
PROVIDERS: PCP Family Medicine; Visit Provider Family Medicine
DX: K80.20 Calculus of gallbladder without cholecystitis without obstruction (principal); K76.0 Fatty (change of) liver, not elsewhere classified
CPT/HCPCS: 76700

== ENCOUNTER 2021-07-19 17:34 | Outpatient (REF) | payer MEDICARE, OTHER, SELFPAY ==
[2021-07-19 19:54] LABS: HCT 41.2 % (40.0-50.0); HGB 13.7 g/dL (13.5-17.5)
[2021-07-19 20:29] LABS: Hemoglobin A1C 6.6 % (<5.7)
[2021-07-19 21:00] LABS: ALT 41 U/L (16-63); AST 18 U/L (15-37); Albumin 4.1 g/dL (3.4-5.0); Alkaline Phosphatase 93 U/L (46-116); Anion Gap 8.7 mmol/L (3-11); BUN 13 mg/dL (7-18); Bilirubin, Total 0.6 mg/dL (0.2-1.0); CO2 32.3 mmol/L (21.0-32.0); CREATININE 0.9 mg/dL (0.70-1.30); Calcium 9.1 mg/dL (8.5-10.1); Calculated LDL 41 mg/dL (<100); Chloride 103 mmol/L (98-107); Cholesterol 113 mg/dL (<200); Glucose 107 mg/dL (74-106); HDL Cholesterol 33 mg/dL (40-60); Potassium 4.3 mmol/L (3.5-5.1); Sodium 144 mmol/L (136-145); Triglyceride 195 mg/dL (<150); Vitamin B12 361 pg/mL (193-986)
[2021-07-19 22:03] LABS: FREE T4 0.78 ng/dL (0.76-1.46)
[2021-07-21 10:27] LABS: Lyme Ab w Rflx to Lyme Confirm Negative (Negative)
[2021-07-22 14:15] LABS: Anaplasma phagocytophilum Negative (Negative); B. miyamotoi PCR Negative (Negative); Babesia divergens/MO-1 Negative (Negative); Babesia duncani Negative (Negative); Babesia microti Negative (Negative); Ehrlichia chaffeensis Negative (Negative); Ehrlichia ewingii/canis Negative (Negative); Ehrlichia muris eauclairensis Negative (Negative)
== END 2021-07-19 17:35 | disposition home or self-care (01) ==
LOC: NCHCN 17:34
PROVIDERS: PCP Family Medicine; Visit Provider Family Medicine
DX: E11.9 Type 2 diabetes mellitus without complications (principal); E78.5 Hyperlipidemia, unspecified; D64.9 Anemia, unspecified; E03.9 Hypothyroidism, unspecified; E53.8 Deficiency of other specified B group vitamins; R07.9 Chest pain, unspecified; R21 Rash and other nonspecific skin eruption; W57.XXXA Bitten or stung by nonvenomous insect and other nonvenomous arthropods, initial encounter
CPT/HCPCS: 80053; 80061; 87798; 82607; 83036; 84439; 85014; 85018; 86618

== ENCOUNTER 2021-07-27 13:44 | Emergency (ER) | payer MEDICARE, OTHER, SELFPAY ==
[2021-07-27] VITALS (48 sets, daily range): BP systolic 98–129; BP diastolic 52–78; PULSE 58–90; RESP 11–21; TEMP 36–36.5; O2SAT 96–100
--- NOTE | 2021-07-27 13:45 | RT.EKG_ITS ---
APPROVED REPORT Exam: Resting ECG Reason for Exam: Dizzy, SOB Patient Location: E HR:63 bpm ECG Measurements Heart Rate 63 AXIS AL 213 P -25 QRSd 108 QRS -55 QT 533 T 122 QTc 545 Conclusion Sinus rhythm...normal P axis, V-rate 60- 99 Atrial premature complex...SV complex w/ short R-R interval Borderline prolonged AL interval...AL >212, V-rate 50- 90 Left anterior fascicular block...axis(240,-40), init forces inf Low voltage, extremity and precordial leads...extremity<0.5mV, precordial<1.0mV Nonspecific T abnormalities, lateral leads...T <-0.10mV, I aVL V5 V6 Prolonged QT interval...QTc >500mS signifiucant artifact [id number], no STEMI, non-diagnostic EKG I have reviewed and interpreted ECG and agree with software generated interpretation.
--- NOTE | 2021-07-27 14:00 | RT.EKG_ITS ---
APPROVED REPORT Exam: Resting ECG Reason for Exam: second ekg Patient Location: E HR:59 bpm ECG Measurements Heart Rate 59 AXIS NE 177 P -38 QRSd 100 QRS -55 QT 447 T [id number] QTc 434 Conclusion Sinus bradycardia...rate< 60 Atrial premature complex...SV complex w/ short R-R interval Low voltage, extremity and precordial leads...extremity<0.5mV, precordial<1.0mV
--- NOTE | 2021-07-27 14:10 | W.ED.GENAD ---
Discharge Plan Disposition Patient Disposition: [facility] Condition: Serious Discharge Details Clinical Impression: Abdominal aortic aneurysm dissection Primary Care Provider: Deepa Oliva V ED Provider: Terrance Avelar Home Meds and New Rx's Prescriptions: No Action tamsulosin 0.4 MG capsule 0.4 mg PO BID RF: 0 aspirin [Aspir-Low] 81 MG tablet,delayed release (DR/EC) 81 mg PO DAILY AM RF: 0 albuterol sulfate [Proventil HFA] 1 PUFF HFA aerosol inhaler 2 gm Inhalation DIRECTED Qty: 1 RF: 3 spironolactone 25 MG tablet 25 mg PO DAILY RF: 0 furosemide [Lasix] 80 MG tablet 80 mg PO DAILY RF: 0 lisinopril [Prinivil] 5 MG tablet 5 mg PO DAILY RF: 0 ascorbic acid (vitamin C) [Vitamin C With Dejah Hips] 1,000 MG tablet 1 tab PO PRN PRNRF: 0 saw palmetto 500 MG capsule 450 mg PO PRN PRNRF: 0 cyclobenzaprine 10 MG tablet 10 mg PO HS RF: 0 magnesium oxide 400 MG tablet 400 mg PO DAILY Qty: 30 RF: 0 fluoxetine [Prozac] 20 mg Capsule 20 mg PO DAILY RF: 0 budesonide 0.5 mg/2 mL Suspension For Nebulization 0.5 mg INHALATION DAILY RF: 0 Perforomist 20 mcg/2 mL Solution For Nebulization INHALATION RF: 0 carvedilol 25 mg Tablet 25 mg PO BID RF: 0 cyanocobalamin (vitamin B-12) 1,000 mcg Tablet 1,000 mcg PO DAILY RF: 0 levothyroxine [Synthroid] 50 mcg Tablet 50 mcg PO DAILY RF: 0 pantoprazole 20 mg Tablet,Delayed Release (Dr/Ec) 20 mg PO DAILY RF: 0 atorvastatin 40 mg Tablet 40 mg PO DAILY RF: 0 clopidogrel 75 mg Tablet 75 mg PO DAILY RF: 0 nitroglycerin [Nitrostat] 0.4 mg Tablet, Sublingual 0.4 mg SUBLINGUAL Q5-15M PRNRF: 0 Discharge Data Discharge Date/Time-TO BE ENTERED AT DEPARTURE: 07/27/21 17:14 Medical Decision Making <Florinda Gupta - Last Filed: 07/28/21 19:57> 76-year-old male presents to the ER chief complaint of left-sided chest pain and abdominal pain associated with nausea and dizziness which began this morning. Patient has a past medical history of COPD, atrial fibrillation, cardiomyopathy, renal insufficiency, hyperlipidemia, diabetes, coronary artery disease, CHF. PCI with stents in 2020, former smoker. He reports the pain radiates into his back is constant no worsening or improving symptoms. Denies any trauma or any other associated symptoms. Cardiac work-up ordered including serial troponins, EKG, CT chest abdomen pelvis with contrast to rule out AAA versus other etiology. Patient was given morphine 4 mg IV, he is on anticoagulation intake 75 mg clopidogrel, 81 mg aspirin CTA chest thoracic abdomen pelvis IMPRESSION: 1. Although there is no evidence of thoracic aortic dissection, there is an arrow glass shaped infrarenal abdominal aortic aneurysm with maximum diameter 3.3 cm. The lower half of the aneurysm exhibits on its right-sided finding which has appearance of focal dissection, with the dissection flap terminating just above the aortic bifurcation. Dissection flap does not continue into the common iliac arteries and there is flow in both common iliac arteries noted. 2. Part of the urinary bladder is inside of a right inguinal hernia and located within the right inguinal canal. 3. Mild infiltrate in both lung bases, not associated with pleural effusions nor adenopathy. There is also a faint noncalcified 5 millimeter nodule in the right upper lobe which will require close follow-up. 1617: Spoke with [facility] transfer center regarding transfer request for infrarenal abdominal aneurysm with focal dissection. Care is to be handed out to oncoming provider BEKAH Funes pending transfer to tertiary facility for abdominal aortic aneurysm/questionable dissection. <BEKAH Brooks - Last Filed: 07/27/21 17:00> I assumed care of this 76-year-old gentleman at shift change at 1600 from my colleague ADELA Gupta, please see her initial HPI and examination. Before I was able to physically examine the patient received a call from radiology revealing an hourglass shaped infrarenal abdominal aortic aneurysm with maximum diameter 3.3 cm. The lower half of the aneurysm exhibit right-sided findings which has appearance of focal dissection, with the dissecting flap terminating just above the aortic bifurcation. Dissection flap does not continue into common iliac arteries which are not significantly dilated. No dissection evident in the iliac arteries. Images were immediately pushed to [facility] and vascular transfer requested. In the meantime I personally evaluated the patient. He reports dramatic improvement of his discomfort with the IV fentanyl, blood pressure 109/59, heart rate 62. He has significant abdominal pain with any type of movement, he does have diffuse mid and left abdominal discomfort, he describes this as radiating into his back. I do not appreciate pulsatile mass. I received a call from vascular at 1637, Dr. Hendricks who accepts transfer into his care, ER to ER. All appropriate paperwork completed. At time of transfer heart rate is 66 and blood pressure is 127/66. Medical Records Medical records reviewed: Yes I reviewed the patient's medical records. Imaging Data Radiologic Study: Attestation: I personally reviewed and interpreted this imaging study as follows: Imaging: CT Scan Radiologist's impression: Exam(s) CT THORAX ABD/PEL CTA EXAM: CT THORAX ABD/PEL CTA CLINICAL HISTORY: R/O AAA. TECHNIQUE: Imaging Protocol: Axial computed tomography images with coronal and sagittal reformatted images were created and reviewed CONTRAST MATERIAL: Intravenous: Omnipaque 350 Contrast volume:100 ml Oral: None COMPARISON: CT CT CHEST PE CTA from 05/14/2021 FINDINGS: CHEST: LUNGS: Mild increased markings in dependent aspects of both lower lobes, possibly exaggerated by air trapping-suboptimal inspiration here.. In the right upper lobe there is a noncalcified 5 millimeter nodule evident. No other lung nodules evident. No focal findings in the trachea and mainstem bronchi. MEDIASTINUM: There is no hilar nor mediastinal adenopathy. Visualized thyroid unremarkable. CARDIAC: Mild cardiomegaly. No pericardial effusion. AORTA: Caliber of the thoracic aorta is within normal limits. Aortic anatomy is bovine. There is no evidence of thoracic aortic dissection. ABDOMEN: There is a fusiform hourglass shaped infrarenal abdominal aortic aneurysm which exhibits maximum external diameter of 3.3 cm. The lower aspect of this aneurysm exhibits a 2nd lumen on the right side which may be focal dissection, nonobstructive. This does not extend into the common iliac arteries which are not significantly dilated. No dissection evident in the iliac arteries. LIVER: Liver is hypodense implying steatosis. No ominous discrete focal hepatic lesions. GALLBLADDER/BILIARY: No obvious gallbladder pathology. CBD is not dilated. PANCREAS: No evidence of pancreatic mass nor dilatation of the pancreatic duct. SPLEEN: Spleen is not enlarged. There are no intrasplenic lesions. Splenic and portal veins are patent. ADRENALS: There are no significant adrenal masses. KIDNEYS: No cysts evident. No calculi nor hydronephrosis. No solid renal masses. ABDOMINAL AORTA: As above LYMPH NODES: There is no retroperitoneal nor para-aortic adenopathy. No obvious mesenteric masses. ABDOMINAL WALL: There is a right inguinal hernia which contains part of the urinary bladder. GI: There is no evidence of bowel obstruction, free air, nor abscess. PELVIS: LYMPH NODES: There is no intrapelvic nor inguinal adenopathy. GI: No evidence of appendicitis.No evidence of sigmoid diverticulitis. URINARY BLADDER: As above. Part of the urinary bladder is descending towards the right hemiscrotum within the right inguinal canal. REPRODUCTIVE: Prostate is not enlarged. Seminal vesicles unremarkable. OSSEOUS: No significant osseous lesions. IMPRESSION: 1. Although there is no evidence of thoracic aortic dissection, there is an arrow glass shaped infrarenal abdominal aortic aneurysm with maximum diameter 3.3 cm. The lower half of the aneurysm exhibits on its right-sided finding which has appearance of focal dissection, with the dissection flap terminating just above the aortic bifurcation. Dissection flap does not continue into the common iliac arteries and there is flow in both common iliac arteries noted. 2. Part of the urinary bladder is inside of a right inguinal hernia and located within the right inguinal canal. 3. Mild infiltrate in both lung bases, not associated with pleural effusions nor adenopathy. There is also a faint noncalcified 5 millimeter nodule in the right upper lobe which will require close follow-up. Lab Data Lab results reviewed: Yes I reviewed the patient's lab results. Labs: Laboratory Tests Range/Units 07/27/21 07/27/21 07/27/21 14:14 14:14 14:14 WBC (4.4-10.8) 10^3/uL 7.33 RBC (4.36-5.78) 10^6/uL 4.04 L Hgb (13.5-17.5) g/dL 13.2 L Hct (40.0-50.0) % 39.4 L MCV (80-95) fL 97.5 H MCH (27.0-33.0) pg 32.7 MCHC (32.0-36.0) % 33.5 RDW (11.8-14.1) % 11.9 Plt Count (130-400) 10^3/uL 205 MPV (8.0-11.0) fL 10.3 Immature Gran % 0.3 Neutrophils % 59.4 Lymphocytes % 24.4 Monocytes % 12.7 Eosinophils % 2.9 Basophils % 0.3 Nucleated RBC % % 0 Absolute Neutrophils (1.2-6.7) 10^3/uL 4.36 Absolute Lymphocytes (1.2-3.4) 10^3/uL 1.79 Absolute Monocytes (0.1-0.8) 10^3/uL 0.93 H Absolute Eosinophils (0.0-0.7) 10^3/uL 0.21 Absolute Basophils (0.0-0.2) 10^3/uL 0.02 PT (9.3-11.0) sec INR (0.9-1.1) APTT (21.0-27.5) sec Sodium (136-145) mmol/L 141 Potassium (3.5-5.1) mmol/L 3.6 Chloride (98-107) mmol/L 104 Carbon Dioxide (21.0-32.0) mmol/L 28.0 Anion Gap (3-11) mmol/L 9.0 BUN (7-18) mg/dL 16 Creatinine (0.70-1.30) mg/dL 1.1 Estimated GFR/1.73 m2 (mL/min/1.73m2) >= 60.00 Glucose (74-106) mg/dL 130 H Calcium (8.5-10.1) mg/dL 9.2 Magnesium (1.8-2.4) mg/dL 1.8 Total Bilirubin (0.2-1.0) mg/dL 1.0 AST (15-37) U/L 21 ALT (16-63) U/L 36 Alkaline Phosphatase (46-116) U/L 86 Troponin I (<0.06) ng/mL < 0.05 Total Protein (6.4-8.2) g/dL 6.9 Albumin (3.4-5.0) g/dL 3.7 Lipase (73-393) U/L COVID-19 Source SARS-CoV-2 (PCR) (Negative) Range/Units 07/27/21 07/27/21 07/27/21 14:14 14:14 15:30 WBC (4.4-10.8) 10^3/uL RBC (4.36-5.78) 10^6/uL Hgb (13.5-17.5) g/dL Hct (40.0-50.0) % MCV (80-95) fL MCH (27.0-33.0) pg MCHC (32.0-36.0) % RDW (11.8-14.1) % Plt Count (130-400) 10^3/uL MPV (8.0-11.0) fL Immature Gran % Neutrophils % Lymphocytes % Monocytes % Eosinophils % Basophils % Nucleated RBC % % Absolute Neutrophils (1.2-6.7) 10^3/uL Absolute Lymphocytes (1.2-3.4) 10^3/uL Absolute Monocytes (0.1-0.8) 10^3/uL Absolute Eosinophils (0.0-0.7) 10^3/uL Absolute Basophils (0.0-0.2) 10^3/uL PT (9.3-11.0) sec 10.8 INR (0.9-1.1) 1.1 APTT (21.0-27.5) sec 23.7 Sodium (136-145) mmol/L Potassium (3.5-5.1) mmol/L Chloride (98-107) mmol/L Carbon Dioxide (21.0-32.0) mmol/L Anion Gap (3-11) mmol/L BUN (7-18) mg/dL Creatinine (0.70-1.30) mg/dL Estimated GFR/1.73 m2 (mL/min/1.73m2) Glucose (74-106) mg/dL Calcium (8.5-10.1) mg/dL Magnesium (1.8-2.4) mg/dL Total Bilirubin (0.2-1.0) mg/dL AST (15-37) U/L ALT (16-63) U/L Alkaline Phosphatase (46-116) U/L Troponin I (<0.06) ng/mL Total Protein (6.4-8.2) g/dL Albumin (3.4-5.0) g/dL Lipase (73-393) U/L 171 COVID-19 Source Nasal/Nares SARS-CoV-2 (PCR) (Negative) Negative HPI <Florinda London - Last Filed: 07/28/21 19:57> General Mode of arrival: wheelchair. Date/Time Provider Initiated Documentation: 07/27/21 13:45. Limitations to Documentation: no limitations. Information obtained by: patient, RN notes reviewed and old records reviewed. HPI Narrative: 76-year-old male presents to the ER chief complaint of left-sided chest pain and abdominal pain associated with nausea and dizziness which began this morning. Patient has a past medical history of COPD, atrial fibrillation, cardiomyopathy, renal insufficiency, hyperlipidemia, diabetes, coronary artery disease, CHF. PCI with stents in 2019, former smoker. He reports the pain radiates into his back is constant no worsening or improving symptoms. Denies any trauma or any other associated symptoms. Related Data Home Medications Medication Instructions Recorded Confirmed albuterol sulfate [Proventil HFA] 2 gm INHALATION DIRECTED #1 inh 09/01/13 05/13/21 aspirin [Aspir-Low] 81 mg PO DAILY AM 09/01/13 05/13/21 tamsulosin 0.4 mg PO BID 09/01/13 05/13/21 furosemide [Lasix] 80 mg PO DAILY 11/11/13 05/13/21 lisinopril [Prinivil] 5 mg PO DAILY 11/11/13 05/13/21 spironolactone 25 mg PO DAILY 11/11/13 05/13/21 ascorbic acid (vitamin C) [Vitamin 1 tab PO PRN PRN 01/21/15 05/13/21 C With Dejah Hips] saw palmetto 450 mg PO PRN PRN 01/21/15 05/13/21 cyclobenzaprine 10 mg PO HS 03/28/17 05/13/21 magnesium oxide 400 mg PO DAILY #30 tab 03/28/17 05/13/21 atorvastatin 40 mg PO DAILY 05/13/21 05/13/21 budesonide 0.5 mg INHALATION DAILY 05/13/21 05/13/21 carvedilol 25 mg PO BID 05/13/21 05/13/21 clopidogrel 75 mg PO DAILY 05/13/21 05/13/21 cyanocobalamin (vitamin B-12) 1,000 mcg PO DAILY 05/13/21 05/13/21 fluoxetine [Prozac] 20 mg PO DAILY 05/13/21 05/13/21 formoterol fumarate [Perforomist] INHALATION 05/13/21 levothyroxine [Synthroid] 50 mcg PO DAILY 05/13/21 05/13/21 nitroglycerin [Nitrostat] 0.4 mg SUBLINGUAL Q5-15M PRN 05/13/21 05/13/21 pantoprazole 20 mg PO DAILY 05/13/21 05/13/21 Previous Rx's Medication Instructions Recorded albuterol sulfate [Proventil HFA] 2 gm INHALATION DIRECTED #1 inh 09/01/13 magnesium oxide 400 mg PO DAILY #30 tab 03/28/17 Allergies Allergy/AdvReac Type Severity Reaction Status Date / Time Penicillins Allergy Severe Anaphylaxsi Unverified 07/27/21 13:59 s donepezil [From Aricept] Allergy Mild mild per Unverified 07/27/21 13:59 pcp chart adenosine Allergy Unverified 07/27/21 13:59 metformin [From Glucophage] Allergy per pcp Unverified 07/27/21 13:59 chart--moderate codeine AdvReac Intermediate Dizziness/L Unverified 07/27/21 13:59 ightheade General Stated Complaint: Chest Pain DANIEL: 2 Review of Systems <Florinda Gupta - Last Filed: 07/28/21 19:57> All systems reviewed & are unremarkable except as noted in HPI and below Constitutional Constitutional: Reports as per HPI and Reports excessive sweating Cardiovascular Cardiovascular: Reports chest pain and Reports diaphoresis Endocrine Endocrine: Reports excessive sweating PFS <Florinda Gupta - Last Filed: 07/28/21 19:57> Medical History Apical mural thrombus Atrial fib/flutter, transient Mena's palsy BPH (benign prostatic hyperplasia) CAD (coronary artery disease) Cardiomyopathy CHF (congestive heart failure) COPD (chronic obstructive pulmonary disease) DM (diabetes mellitus) HTN (hypertension) Hypothyroidism Obesity (BMI 30.0-34.9) ORLIN (obstructive sleep apnea) Pulmonary hypertension Renal insufficiency Surgical History Appendectomy Colonoscopy - MAC (08/04/16) Hx of cardiac cath in [place] in the 90's - unknown intervention [facility] [place] - clean coronaries, severe pulmonary hypertension, no prior stent found Family History Mother Cervical cancer Other Colon cancer Social History Smoking/Tobacco Use Status: Former Tobacco Use Smoking risk assessment performed?: Yes Drug use: Never Substance use type: does not use Details: states he has increased his alcohol use recently due to the heat Do you feel safe at home: Yes Do you feel safe in your relationship?: Yes Exam <Florinda Gupta - Last Filed: 07/28/21 19:57> Narrative Exam Narrative: Constitutional: Alert and oriented x3. Appears stated age. obese body habitus. Appears uncomfortable, pale diaphoretic. Head: Normocephalic, no trauma. Eyes: Pupils PERRLA, Red reflex noted, EOM's intact. Eyelids symmetrical without lesions, discharge, or swelling. ENT: Bilateral TM's WNL, External ear normal to inspection, no mastoid TTP, swelling, or erythema, Nasal turbinates WNL, no nasal discharge. Normal dentition, Posterior pharynx WNL, no exudate. Chest: RRR, Normal S1, S2, distal pulses intact. Resp: Lungs clear to auscultation bilaterally, no wheezes, rales, or rhonchi. Abdomen: Soft, tenderness left upper quadrant, no pulsatile mass palpated. Musculoskeletal: Unable to assess gait. 5/5 strength to all four extremities. Skin: Pale diaphoretic no suspicious rashes or lesions. Capillary refill less than 2 sec. Neurologic: Cranial nerves II-XII intact. Alert and oriented x 3. DTR's intact. Hematologic/Lymphatic: No ecchymosis, no lymphadenopathy. Course <Florinda Gupta - Last Filed: 07/28/21 19:57> Vital Signs Vital signs: Vital Signs Temperature 36.5 C 07/27/21 13:53 Pulse 67 07/27/21 13:53 Respiratory Rate 20 07/27/21 13:53 Blood Pressure 118/75 07/27/21 13:53 Pulse Oximetry 98 07/27/21 13:53 Temperature 36.5 C 07/27/21 13:53 Temperature Source Oral 07/27/21 13:53 Pulse 67 07/27/21 13:53 Respiratory Rate 20 07/27/21 13:53 Respiratory Effort 07/27/21 13:58 Blood Pressure 118/75 07/27/21 13:53 Blood Pressure Position Supine 07/27/21 13:53 Pulse Oximetry 98 07/27/21 13:53 Oxygen Delivery Method Room Air 07/27/21 13:53 Oxygen Flow Rate 0 07/27/21 13:53 Pain Level 10 07/27/21 13:53 <BEKAH Brooks - Last Filed: 07/27/21 17:00> Critical Care Time Critical Care Time: Yes Total Critical Care Time: 35 Attestation: Upon my evaluation, this patient had a high probability of clinically significant, life-threatening deterioration due to their current medical conditions, which required my direct attention, intervention, and personal management. I have personally provided greater than 30 minutes of critical care time exclusive of the time spend on separately billable procedures. Time includes obtaining a history, examining the patient, pulse oximetry, review of laboratory data, radiology results, discussion with consultants, arranging urgent treatment with development of a management plan, evaluation of patient's response to treatment, and monitoring for potential decompensation. Interventions were performed as documented above. Sign Out <Florinda Gupta - Last Filed: 07/28/21 19:57> Sign Out Data: Sign Out Comment: Pending CT Chest Abd Pelvis result, Repeat troponin, lipase and probable admission. Left side chest pain, abdominal pain. Last updated by Florinda Gupta at 07/27/21 15:40
--- NOTE | 2021-07-27 14:30 | DI.CT_ITS ---
Exam(s) CT THORAX ABD/PEL CTA EXAM: CT THORAX ABD/PEL CTA CLINICAL HISTORY: R/O AAA. TECHNIQUE: Imaging Protocol: Axial computed tomography images with coronal and sagittal reformatted images were created and reviewed CONTRAST MATERIAL: Intravenous: Omnipaque 350 Contrast volume:100 ml Oral: None COMPARISON: CT CT CHEST PE CTA from 05/14/2021 FINDINGS: CHEST: LUNGS: Mild increased markings in dependent aspects of both lower lobes, possibly exaggerated by air trapping-suboptimal inspiration here.. In the right upper lobe there is a noncalcified 5 millimeter nodule evident. No other lung nodules evident. No focal findings in the trachea and mainstem bronch i. MEDIASTINUM: There is no hilar nor mediastinal adenopathy. Visualized thyroid unremarkable. CARDIAC: Mild cardiomegaly. No pericardial effusion. AORTA: Caliber of the thoracic aorta is within normal limits. Aortic anatomy is bovine. There is no evidence of thoracic aortic dissection. ABDOMEN: There is a fusiform hourglass shaped infrarenal abdominal aortic aneurysm which exhibits maximum exte rnal diameter of 3.3 cm. The lower aspect of this aneurysm exhibits a 2nd lumen on the right side wh ich may be focal dissection, nonobstructive. This does not extend into the common iliac arteries whi ch are not significantly dilated. No dissection evident in the iliac arteries. LIVER: Liver is hypodense implying steatosis. No ominous discrete focal hepatic lesions. GALLBLADDER/BILIARY: No obvious gallbladder pathology. CBD is not dilated. PANCREAS: No evidence of pancreatic mass nor dilatation of the pancreatic duct. SPLEEN: Spleen is not enlarged. There are no intrasplenic lesions. Splenic and portal veins are villasenor nt. ADRENALS: There are no significant adrenal masses. KIDNEYS: No cysts evident. No calculi nor hydronephrosis. No solid renal masses. ABDOMINAL AORTA: As above LYMPH NODES: There is no retroperitoneal nor para-aortic adenopathy. No obvious mesenteric masses. ABDOMINAL WALL: There is a right inguinal hernia which contains part of the urinary bladder. GI: There is no evidence of bowel obstruction, free air, nor abscess. PELVIS: LYMPH NODES: There is no intrapelvic nor inguinal adenopathy. GI: No evidence of appendicitis.No evidence of sigmoid diverticulitis. URINARY BLADDER: As above. Part of the urinary bladder is descending towards the right hemiscrotum w ithin the right inguinal canal. REPRODUCTIVE: Prostate is not enlarged. Seminal vesicles unremarkable. OSSEOUS: No significant osseous lesions. IMPRESSION: 1. Although there is no evidence of thoracic aortic dissection, there is an arrow glass shaped infrar enal abdominal aortic aneurysm with maximum diameter 3.3 cm. The lower half of the aneurysm exhibits on its right-sided finding which has appearance of focal dissection, with the dissection flap termin ating just above the aortic bifurcation. Dissection flap does not continue into the common iliac art eries and there is flow in both common iliac arteries noted. 2. Part of the urinary bladder is inside of a right inguinal hernia and located within the right ingu inal canal. 3. Mild infiltrate in both lung bases, not associated with pleural effusions nor adenopathy. There i s also a faint noncalcified 5 millimeter nodule in the right upper lobe which will require close foll ow-up. Report called by myself to the ER provider. RADIATION DOSE DELIVERED: 1,321.47mGy.cm Total DLP DATA REPOSITORY: All CT scans at this facility are submitted to the National Radiology Data Registry (NRDR) Dose Index Registry (DIR) with the [employer] (A[employer]). RADIATION OPTIMIZATION: All CT scans at this facility use at least one of these dose optimization te chniques: automated exposure control; mA and/or kV adjustment per patient size (includes targeted exa ms where dose is matched to clinical indication); or iterative reconstruction.
[2021-07-27] MEDS: Ondansetron 4 MG/2 ML VIAL IVP (14:35)
[2021-07-27] MEDS: fentaNYL 100 MCG/2 ML VIAL 50 MCG IVP (14:37)
[2021-07-27] MEDS: Normal Saline 1,000 ML 1000 ML IV (14:37)
[2021-07-27 14:51] LABS: Abs Immature Grans 0.02 10^3/uL (0.0-0.06); Absolute Basophil Count 0.02 10^3/uL (0.0-0.2); Absolute Eosinophil Count 0.21 10^3/uL (0.0-0.7); Absolute Lymphocyte Count 1.79 10^3/uL (1.2-3.4); Absolute Monocyte Count 0.93 10^3/uL (0.1-0.8); Absolute Neutrophil Count 4.36 10^3/uL (1.2-6.7); Basophils % 0.3; Eosinophils % 2.9; HCT 39.4 % (40.0-50.0); HGB 13.2 g/dL (13.5-17.5); Immature Grans % 0.3; Lymphocytes % 24.4; MCH 32.7 pg (27.0-33.0); MCHC 33.5 % (32.0-36.0); MCV 97.5 fL (80-95); MPV 10.3 fL (8.0-11.0); Monocytes % 12.7; Neutrophils % 59.4; Nucleated RBC 0 %; Platelet Count 205 10^3/uL (130-400); RBC 4.04 10^6/uL (4.36-5.78); RDW 11.9 % (11.8-14.1); RDW-SD 43.2 fL; WBC 7.33 10^3/uL (4.4-10.8)
[2021-07-27] MEDS: Omnipaque 350 MG/ML 100 ML BTL IJ (14:55)
[2021-07-27] MEDS: Normal Saline Flush 10 ML SYR IVP (14:56)
[2021-07-27 15:01] LABS: Magnesium 1.8 mg/dL (1.8-2.4)
[2021-07-27 15:09] LABS: INR 1.1 (0.9-1.1); PTT Activated 23.7 sec (21.0-27.5); Prothrombin Time 10.8 sec (9.3-11.0)
[2021-07-27 15:10] LABS: ALT 36 U/L (16-63); AST 21 U/L (15-37); Albumin 3.7 g/dL (3.4-5.0); Alkaline Phosphatase 86 U/L (46-116); BUN 16 mg/dL (7-18); CREATININE 1.1 mg/dL (0.70-1.30); Calcium 9.2 mg/dL (8.5-10.1); Chloride 104 mmol/L (98-107); Glucose 130 mg/dL (74-106); Potassium 3.6 mmol/L (3.5-5.1); Sodium 141 mmol/L (136-145); Total Protein 6.9 g/dL (6.4-8.2); Troponin I < 0.05 ng/mL (<0.06)
[2021-07-27 15:36] LABS: Source Nasal/Nares
[2021-07-27 16:21] LABS: Lipase 171 U/L (73-393)
[2021-07-27 16:33] LABS: COVID-19 PCR Negative (Negative)
--- NOTE | 2021-07-27 16:45 | RT.EKG_ITS ---
APPROVED REPORT Exam: Resting ECG Reason for Exam: delta trop / ekg Patient Location: E HR:66 bpm ECG Measurements Heart Rate 66 AXIS RI 200 P -56 QRSd 104 QRS -47 QT 434 T 20 QTc 455 Conclusion Sinus or ectopic atrial rhythm...P axis (-45,135) LAD, consider left anterior fascicular block...axis(240,-40), S>R II III aVF Low voltage, extremity and precordial leads...extremity<0.5mV, precordial<1.0mV
== END 2021-07-27 17:14 | disposition short-term general hospital (02) ==
PROVIDERS: Registered Nurse Emergency; Emergency Provider Physician Assistant; PCP Family Medicine
DX: I71.02 Dissection of abdominal aorta (principal); R07.9 Chest pain, unspecified
CPT/HCPCS: 36415; 36416; 71275; 74177; 80053; 82962; 83690; 87635; 93005; 96361; 96374; 96375; 99291; 83735; 84484; 85025; 85610; 85730; 93010; J2270; J2405; J3010; J3490

== ENCOUNTER 2021-08-03 09:09 | Emergency (ER) | payer MEDICARE, OTHER, SELFPAY ==
[2021-08-03] VITALS (47 sets, daily range): BP systolic 111–141; BP diastolic 58–79; PULSE 61–77; RESP 10–22; TEMP 36.3–36.6; O2SAT 98–100
--- NOTE | 2021-08-03 09:00 | RT.EKG_ITS ---
APPROVED REPORT Exam: Resting ECG Reason for Exam: chest pain Patient Location: E HR:66 bpm ECG Measurements Heart Rate 66 AXIS FL 207 P 7 QRSd 100 QRS -52 QT [id number] T 25 QTc 0 Conclusion Sinus rhythm...normal P axis, V-rate 60- 99 Left anterior fascicular block...axis(240,-40), init forces inf Low voltage, extremity and precordial leads...extremity<0.5mV, precordial<1.0mV Q >30mS in V2-V5
--- NOTE | 2021-08-03 09:10 | DI.CT_ITS ---
Exam(s) CT THORAX ABD/PEL CTA EXAM: CT THORAX ABD/PEL CTA CLINICAL HISTORY: known AAA, abd pain. TECHNIQUE: Imaging Protocol: Axial CT angiography was performed with multi-slice acquisition and m ulti-planar and/or 3D reconstructions. CONTRAST MATERIAL: Intravenous: Omnipaque 350 Contrast volume:100 mL Oral: No COMPARISON: CT CT THORAX ABD/PEL CTA from 07/27/[address] THORAX ABD/PEL CTA from 07/27/2021 FINDINGS: CHEST: Tracheobronchial tree: Patent where visualized. Pulmonary parenchyma: No consolidation or dominant measurable mass. There is a stable solitary nodule in the right upper lobe. No other pulmonary nodules are seen. Pulmonary Arteries: No evidence of filling defect to suggest pulmonary emboli. Mediastinum and Colleen: No dominant adenopathy or fluid collection. Visualized thyroid: Unremarkable. Pleura: No effusion or pneumothorax. Heart: The heart is not dilated. Mild coronary artery calcification. No pericardial effusion. Aorta: Thoracic aorta non-dilated. Atherosclerosis. No evidence of thoracic aortic dissection. Soft Tissues: Gynecomastia. Bones: Within normal limits for the patient's age. ABDOMEN AND PELVIS: Abdomen: Celiac axis/mesenteric arteries: No evidence of occlusion or significant stenosis. Renal Arteries: No evidence of occlusion or significant stenosis. There is a single renal artery per fusing each kidney. Mild atherosclerosis at the proximal left renal artery. Aorta: Atherosclerosis. There is a stable infrarenal abdominal aortic aneurysm. There has been no change in the appearance of the dissection in the distal abdominal aorta just proximal to the bifurca tion. No extension of the dissection is seen. No extravasation of contrast is seen. Pelvis: Iliac Arteries: No evidence of occlusion or significant stenosis. Atherosclerosis. Common Femoral Arteries: No evidence of occlusion or significant stenosis. Atherosclerosis. ABDOMEN: Liver: There is diffuse fatty infiltration of the liver. No suspicious hepatic masses. There is foc al fatty sparing around the gallbladder which is within normal limits. No measurable mass. Portal, Superior Mesenteric, and Splenic Veins: Unremarkable. Gallbladder and Biliary Tract: The gallbladder is distended. No stones are visualized. The contents of the gallbladder are slightly dense likely reflecting the patient's recent CT scan. Pancreas: Normal density, no abnormal calcifications or inflammatory process. Spleen: Normal. Adrenals: No masses seen. Kidneys: Normal size, contour and axis. No radiodense stones or obstructive uropathy. No masses seen. Bowel: No obstruction or bowel wall thickening. No evidence of appendicitis. Peritoneal Cavity: No ascites, collection or mesenteric inflammatory response. No free air. Lymph Nodes: Within normal limits. Bones: Within normal limits for the patient's age. Soft Tissues: There is again seen a large right inguinal hernia containing a portion of the urinary b ladder. This is unchanged. Fat containing left inguinal hernia. PELVIS: Bladder: There is herniation of a portion of the urinary bladder again seen within the right inguinal hernia. Reproductive Organs: Unremarkable as visualized. Lymph Nodes: Within normal limits. Bones: Within normal limits. IMPRESSION: 1. Stable appearance of the distal abdominal aortic suggesting of focal dissection. No extension of the dissection or extravasation of contrast is seen since 07/27/2021. 2. Stable infrarenal abdominal aortic aneurysm. 3. Stable 5 mm right upper lobe pulmonary nodule. A follow-up CT scan of the chest is recommended in 6-12 months. 4. No acute change since the prior examination from 07/27/2021. 5. Results of this exam have been verbally communicated with provider. RADIATION DOSE DELIVERED: 1,167.52mGy.cm Total DLP DATA REPOSITORY: All CT scans at this facility are submitted to the National Radiology Data Registry (NRDR) Dose Index Registry (DIR) with the [employer] (ACR). RADIATION OPTIMIZATION: All CT scans at this facility use at least one of these dose optimization te chniques: automated exposure control; mA and/or kV adjustment per patient size (includes targeted exa ms where dose is matched to clinical indication); or iterative reconstruction.
--- NOTE | 2021-08-03 09:50 | W.ED.GENAD ---
Discharge Plan Disposition Patient Disposition: AGAINST MEDICAL ADVICE Condition: Stable Discharge Details Clinical Impression: Left-sided chest pain, Abdominal pain Primary Care Provider: Deepa Oliva V ED Provider: Reji Byrnes Home Meds and New Rx's Prescriptions: No Action tamsulosin 0.4 MG capsule 0.8 mg PO DAILY RF: 0 aspirin [Aspir-Low] 81 MG tablet,delayed release (DR/EC) 81 mg PO DAILY AM RF: 0 furosemide [Lasix] 80 MG tablet 80 mg PO DAILY RF: 0 ascorbic acid (vitamin C) [Vitamin C With Dejah Hips] 1,000 MG tablet 1 tab PO DAILY RF: 0 saw palmetto 500 MG capsule 500 mg PO DAILY RF: 0 magnesium oxide 400 MG tablet 400 mg PO DAILY Qty: 30 RF: 0 fluoxetine [Prozac] 20 mg Capsule 20 mg PO DAILY RF: 0 budesonide 0.5 mg/2 mL Suspension For Nebulization 0.5 mg INHALATION DAILY RF: 0 formoterol fumarate [Perforomist] 20 mcg/2 mL Solution For Nebulization 2 ml INHALATION BID RF: 0 cyanocobalamin (vitamin B-12) 1,000 mcg Tablet 1,000 mcg PO DAILY RF: 0 levothyroxine [Synthroid] 50 mcg Tablet 25 mcg PO DAILY RF: 0 pantoprazole 20 mg Tablet,Delayed Release (Dr/Ec) 20 mg PO DAILY RF: 0 atorvastatin 40 mg Tablet 40 mg PO DAILY RF: 0 clopidogrel 75 mg Tablet 75 mg PO DAILY RF: 0 nitroglycerin [Nitrostat] 0.4 mg Tablet, Sublingual 0.4 mg SUBLINGUAL Q5-15M PRNRF: 0 losartan 25 mg tablet 25 mg PO DAILY RF: 0 polyethylene glycol 3350 17 gram powder in packet 17 g PO DAILY RF: 0 albuterol sulfate [Proventil HFA] 1 PUFF HFA aerosol inhaler 2 inh Inhalation Q4H PRNRF: 0 loratadine 10 mg Tablet 10 mg PO DAILY RF: 0 Theragran Tablet 1 tab PO DAILY RF: 0 Discharge Instructions Instructions: Against Medical Advice (ED) Additional Instructions: Please rest with no exertional activities. Monitor your blood pressure closely. Take your medications as prescribed. Please follow-up with your primary care physician and your paediatric thoracic physician. Return to the emergency department at any time for further work-up and treatment as directed Referrals: Deepa Oliva MD [Primary Care Provider] - Discharge Data Discharge Date/Time-TO BE ENTERED AT DEPARTURE: 08/03/21 15:05 Medical Decision Making 10:00 test?76-year-old male with history of AAA status post stent, coronary artery disease, COPD and pulmonary hypertension, diabetes, hyperlipidemia, hypertension, here with left-sided chest pain and abdominal pain that started yesterday and has persisted. EKG was reviewed and interpreted by me: Please see report, sinus rhythm 66 bpm, low voltage, nondiagnostic. Concern for acute dissection of AAA. Plan to obtain stat CTA of the chest abdomen pelvis. 1018 --I spoke with radiology, Dr. Bagley, notes distal aortic dissection that was seen on the eighth, no change, no extension, no acute disease. Gallbladder is distended but no stones seen. 1450 -- RUQ US was interpreted by radiology as positive for gallstones, no acute cholecystitis. Initial troponin negative and second delta 4h troponin negative. Plan for hospitalization for continued monitoring and reassessment. I discussed plan with the patient for hospitalization and he refuses. Patient would like to go home. I had a discussion with the patient about my diagnostic/treatment plan. Patient declines plan and wishes to leave against medical advise. I reiterated my concerns to the patient and explained the risks of leaving prior to completion of workup and treatment. I specifically emphasized the possibility of life-threatening or lifestyle modifying disease that would not be appropriately treated if they leave. Patient verbalized understanding of my concerns and the potential for life threatening or lifestyle modifying disease. Patient has capacity to make informed decision. I again explained my concerns and urged the patient to stay for treatment as outlined. Patient continued to refuse. I then discussed potential less ideal alternatives to diagnostic/treatment plan as outlines and patient refused. I recommended that the patient follow-up with primary care physician and paediatric thoracic physician RAFAEL or return to the Emergency Department at any time for further treatment. HPI General Mode of arrival: ambulatory. Date/Time Provider Initiated Documentation: 08/03/21 09:50. Limitations to Documentation: no limitations. Information obtained by: patient. HPI Narrative: 76-year-old male with history of abdominal aortic aneurysm with dissection, pulmonary hypertension, COPD, hypertension, hyperlipidemia, diabetes, coronary artery disease, CHF, here with chief complaint of left-sided chest pain. Patient notes pain started yesterday and has persisted. Pain is rated 8/10. Pain is localized to left lateral lower chest. Patient has associated pain in his left upper abdomen. Pain described as a pressure. Apparently patient was recently treated at [facility] with stent to AAA. Patient is a poor historian which limits history. Related Data Home Medications Medication Instructions Recorded Confirmed aspirin [Aspir-Low] 81 mg PO DAILY AM 09/01/13 08/03/21 tamsulosin 0.8 mg PO DAILY 09/01/13 08/03/21 furosemide [Lasix] 80 mg PO DAILY 11/11/13 08/03/21 ascorbic acid (vitamin C) [Vitamin 1 tab PO DAILY 01/21/15 08/03/21 C With Dejah Hips] saw palmetto 500 mg PO DAILY 01/21/15 08/03/21 magnesium oxide 400 mg PO DAILY #30 tab 03/28/17 08/03/21 atorvastatin 40 mg PO DAILY 05/13/21 08/03/21 budesonide 0.5 mg INHALATION DAILY 05/13/21 08/03/21 clopidogrel 75 mg PO DAILY 05/13/21 08/03/21 cyanocobalamin (vitamin B-12) 1,000 mcg PO DAILY 05/13/21 08/03/21 fluoxetine [Prozac] 20 mg PO DAILY 05/13/21 08/03/21 formoterol fumarate [Perforomist] 2 ml INHALATION BID 05/13/21 08/03/21 levothyroxine [Synthroid] 25 mcg PO DAILY 05/13/21 08/03/21 nitroglycerin [Nitrostat] 0.4 mg SUBLINGUAL Q5-15M PRN 05/13/21 08/03/21 pantoprazole 20 mg PO DAILY 05/13/21 08/03/21 albuterol sulfate [Proventil HFA] 2 inh INHALATION Q4H PRN 08/03/21 08/03/21 loratadine 10 mg PO DAILY 08/03/21 08/03/21 losartan 25 mg PO DAILY 08/03/21 08/03/21 polyethylene glycol 3350 17 g PO DAILY 08/03/21 08/03/21 therapeutic multivitamin 1 tab PO DAILY 08/03/21 08/03/21 [Theragran] Previous Rx's Medication Instructions Recorded magnesium oxide 400 mg PO DAILY #30 tab 03/28/17 Allergies Allergy/AdvReac Type Severity Reaction Status Date / Time Penicillins Allergy Severe Anaphylaxsi Unverified 07/27/21 13:59 s donepezil [From Aricept] Allergy Mild mild per Unverified 07/27/21 13:59 pcp chart adenosine Allergy Unverified 07/27/21 13:59 metformin [From Glucophage] Allergy per pcp Unverified 07/27/21 13:59 chart--moderate codeine AdvReac Intermediate Dizziness/L Unverified 07/27/21 13:59 ightheade General Stated Complaint: Chest Pain DANIEL: 2 Review of Systems All systems reviewed & are unremarkable except as noted in HPI and below Constitutional Constitutional: Denies fever(s) Cardiovascular Cardiovascular: Reports chest pain and Reports dyspnea (Chronic) Respiratory Respiratory: Reports dyspnea (Chronic) Gastrointestinal Gastrointestinal: Reports abdominal pain PFSH Medical History Apical mural thrombus Atrial fib/flutter, transient Mena's palsy BPH (benign prostatic hyperplasia) CAD (coronary artery disease) Cardiomyopathy CHF (congestive heart failure) COPD (chronic obstructive pulmonary disease) DM (diabetes mellitus) HTN (hypertension) Hypothyroidism Obesity (BMI 30.0-34.9) ORLIN (obstructive sleep apnea) Pulmonary hypertension Renal insufficiency Surgical History Appendectomy Colonoscopy - MAC (08/04/16) Hx of cardiac cath in [place] in the s - unknown intervention [facility] [place] - clean coronaries, severe pulmonary hypertension, no prior stent found Family History Mother Cervical cancer Other Colon cancer Social History Smoking/Tobacco Use Status: Former Tobacco Use Smoking risk assessment performed?: Yes Drug use: Never Substance use type: does not use Details: states he has increased his alcohol use recently due to the heat Do you feel safe at home: Yes Do you feel safe in your relationship?: Yes Exam Const General: cooperative and no acute distress HENMT Head: normocephalic Mouth: moist mucous membranes Eyes Conjunctivae: normal conjunctivae Sclera: normal sclerae Neck Neck: trachea midline and supple Resp Auscultation: clear to auscultation bilaterally, no rales, no rhonchi and no wheezes Cardio Rate: regular rate and not tachycardic Rhythm: regular rhythm GI Palpation: soft, not firm, no guarding, no masses, not rigid and tender in the RLQ and in the LUQ Skin General skin exam: no rashes or lesions noted Neuro General: patient alert, patient awake and tone normal Extrem General: no edema Psych Appearance: grossly normal Mental Status: mental status grossly normal Speech and Movement: speech and movement normal Course Vital Signs Vital signs: Vital Signs Temperature 36.5 C 08/03/21 09:21 Pulse 66 08/03/21 09:21 Respiratory Rate 17 08/03/21 09:21 Blood Pressure 121/66 08/03/21 09:21 Pulse Oximetry 100 08/03/21 09:21 Temperature 36.5 C 08/03/21 09:21 Temperature Source Skin 08/03/21 09:21 Pulse 66 08/03/21 09:21 Respiratory Rate 17 08/03/21 09:21 Blood Pressure 121/66 08/03/21 09:21 Pulse Oximetry 100 08/03/21 09:21 Oxygen Delivery Method Nasal Cannula 08/03/21 09:21 Oxygen Flow Rate 4 08/03/21 09:21 Pain Level 9 08/03/21 09:21 Comment 08/03/21 09:21
[2021-08-03] MEDS: Omnipaque 350 MG/ML 100 ML BTL IJ (09:51)
[2021-08-03 09:54] LABS: Lactate 1.9 mmol/L (0.6-1.4)
[2021-08-03 09:57] LABS: Abs Immature Grans 0.05 10^3/uL (0.0-0.06); Absolute Basophil Count 0.02 10^3/uL (0.0-0.2); Absolute Eosinophil Count 0.08 10^3/uL (0.0-0.7); Absolute Lymphocyte Count 0.76 10^3/uL (1.2-3.4); Basophils % 0.2; Eosinophils % 0.7; HCT 33.8 % (40.0-50.0); HGB 11.3 g/dL (13.5-17.5); Immature Grans % 0.4; Lymphocytes % 6.8; MCH 33.2 pg (27.0-33.0); MCHC 33.4 % (32.0-36.0); MCV 99.4 fL (80-95); MPV 10.2 fL (8.0-11.0); Monocytes % 11.8; Neutrophils % 80.1; Nucleated RBC 0 %; Platelet Count 219 10^3/uL (130-400); RDW 12.5 % (11.8-14.1); RDW-SD 45.1 fL; WBC 11.23 10^3/uL (4.4-10.8)
[2021-08-03 10:01] LABS: Absolute Monocyte Count 1.33 10^3/uL (0.1-0.8)
[2021-08-03 10:12] LABS: Magnesium 1.8 mg/dL (1.8-2.4)
--- NOTE | 2021-08-03 10:15 | DI.US_ITS ---
Exam(s) US ABDOMEN LIMITED EXAM: US ABDOMEN LIMITED CLINICAL HISTORY: ruq, pain TECHNIQUE: Ultrasound abdomen performed using standard protocol. COMPARISON: No exams were available for comparison FINDINGS: PANCREAS: Normal where visualized. LIVER: There is diffuse increased echogenicity of the liver consistent with fatty infiltration. Hepa topedal flow in the Portal Vein. The liver measures 18 cm long. GALLBLADDER: 0.5 cm gallstone. No evidence of wall thickening. No pericholecystic fluid identified. BILIARY SYSTEM: Common bile duct measures < 7 mm. No intrahepatic biliary ductal dilation. STAUFFER'S SIGN: Negative. Right kidney: Mild renal cortical atrophy. No evidence of renal calculi. No evidence of hydronephros is. No renal mass or cyst identified. ASCITES: None seen. IMPRESSION: 1. Cholelithiasis. No evidence of acute cholecystitis. 2. Hepatomegaly and hepatic steatosis. 3. Results of this exam have been verbally communicated with provider. DATA REPOSITORY:
[2021-08-03 10:18] LABS: ALT 40 U/L (16-63); AST 20 U/L (15-37); Albumin 3.7 g/dL (3.4-5.0); Alkaline Phosphatase 82 U/L (46-116); Anion Gap 7.5 mmol/L (3-11); BUN 12 mg/dL (7-18); Bilirubin, Total 0.6 mg/dL (0.2-1.0); CO2 27.5 mmol/L (21.0-32.0); CREATININE 1.2 mg/dL (0.70-1.30); Calcium 9.1 mg/dL (8.5-10.1); Chloride 102 mmol/L (98-107); Estimated GFR 58.71 (mL/min/1.73m2); Glucose 134 mg/dL (74-106); Lipase 273 U/L (73-393); Potassium 4.6 mmol/L (3.5-5.1); Sodium 137 mmol/L (136-145); Total Protein 6.8 g/dL (6.4-8.2); Troponin I < 0.05 ng/mL (<0.06)
[2021-08-03] MEDS: HYDROmorphone 2 MG/ML VIAL 1 MG IVP (10:30)
[2021-08-03 13:46] LABS: Troponin I < 0.05 ng/mL (<0.06)
== END 2021-08-03 15:05 | disposition left against medical advice (07) ==
PROVIDERS: Emergency Provider Student in an Organized Health Care Education/Training Program; PCP Family Medicine
DX: R10.12 Left upper quadrant pain (principal); R07.89 Other chest pain; I71.02 Dissection of abdominal aorta; I25.10 Atherosclerotic heart disease of native coronary artery without angina pectoris; Z95.828 Presence of other vascular implants and grafts; Z53.29 Procedure and treatment not carried out because of patient's decision for other reasons
CPT/HCPCS: 36415; 74177; 80053; 83690; 86850; 86900; 86901; 93005; 96374; 99285; 76705; 83605; 83735; 84484; 85025; 93010; J3490

== ENCOUNTER 2021-08-05 20:28 | Emergency (ER) | payer MEDICARE, OTHER, SELFPAY ==
[2021-08-05] VITALS (88 sets, daily range): BP systolic 67–118; BP diastolic 38–86; PULSE 71–99; RESP 13–27; TEMP 36.7–36.9; O2SAT 92–97
--- NOTE | 2021-08-05 20:15 | RT.EKG_ITS ---
APPROVED REPORT Exam: Resting ECG Reason for Exam: possible AAA Patient Location: E HR:95 bpm ECG Measurements Heart Rate 95 AXIS [place] 204 P 57 QRSd 99 QRS -47 QT 357 T 23 QTc 449 Conclusion Sinus rhythm...normal P axis, V-rate 60- 99 Atrial premature complex...SV complex w/ short R-R interval Left anterior fascicular block...axis(240,-40), init forces inf Low voltage, extremity and precordial leads...extremity<0.5mV, precordial<1.0mV
--- NOTE | 2021-08-05 20:45 | DI.CT_ITS ---
Exam(s) CT THORAX ABD/PEL CTA EXAM: CT THORAX ABD/PEL CTA CLINICAL HISTORY: hypotension, known AAA. TECHNIQUE: Imaging Protocol: Axial computed tomography images with coronal and sagittal reformatted images were created and reviewed CONTRAST MATERIAL: Intravenous: Omnipaque 350 Contrast volume:100 ml Oral: None COMPARISON: CT CT THORAX ABD/PEL CTA from 08/03/2021 FINDINGS: CHEST: LUNGS: In the right upper lobe there is a subtle nodular infiltrate measuring 6 millimeters. No othe r significant focal findings. No pleural effusions. No findings in the trachea and mainstem bronchi . MEDIASTINUM: No hilar adenopathy. Few slightly prominent subcarinal lymph nodes are noted. Visualiz ed thyroid unremarkable.No axillary adenopathy. CARDIAC: Heart size is normal. There is no pericardial effusion. AORTA: Caliber of the thoracic aorta is within normal limits.Atherosclerotic. No dissection in the c hest. ABDOMEN: There is an hour glass shaped abdominal aortic aneurysm with maximum external diameter of 3.1 cm. Th ere is focal nonobstructive dissection just above the aortic bifurcation. Dissection flap does not e xtend into the iliac arteries which are well opacified.There is no aneurysmal dilatation of the commo n iliac arteries.The celiac and superior mesenteric arteries are patent.Renal arteries are patent. LIVER/BILIARY: Liver is enlarged and hypodense implying steatosis. The gallbladder appears to contai n calculi. It is distended and edematous and there is pericholecystic fluid, consistent with acute c holecystitis. Adjacent to the gallbladder fundus seen area of hypodensity in the liver measuring 1.3 by 1.3 cm. This does not contain gas bubbles. Nevertheless cannot exclude a contiguous developing hepatic abscess at this level.. GALLBLADDER/BILIARY: CBD is not dilated. PANCREAS: No evidence of pancreatic mass nor dilatation of the pancreatic duct. SPLEEN: Spleen is not enlarged. ADRENALS: There are no significant adrenal masses. KIDNEYS: No cysts evident. No calculi nor hydronephrosis. No solid renal masses. ABDOMINAL AORTA: Abnormal, as above. There is no periaortic adenopathy. no obvious mesenteric masses . ABDOMINAL WALL: There are bilateral inguinal hernias, right larger than left. The right inguinal her migue contains a significant part of the urinary bladder which extends down the inguinal canal approxim ately 6 cm. The actual ipsilateral right hernia sac measures 9 cm . The smaller left inguinal herni a sac measures 3 cm length. Does not contain bowel loops nor bladder. GI: There is no evidence of bowel obstruction, free air, nor abscess. PELVIS: LYMPH NODES: There is no intrapelvic nor inguinal adenopathy. GI: No evidence of appendicitis.No evidence of sigmoid diverticulitis. URINARY BLADDER: No calculi nor masses evident however, a significant length of the urinary bladder i s in the right inguinal canal. REPRODUCTIVE: Prostate not enlarged. Seminal vesicles unremarkable. OSSEOUS: No significant osseous lesions. IMPRESSION: 1. There is a subtle 6 millimeter noncalcified nodule in the right upper lobe, not associated with ot her obvious pulmonary findings nor pleural effusions and there is no intrathoracic adenopathy. 2. Cholelithiasis and acute cholecystitis with pericholecystic fluid. There is also a small contiguo us 13 x 13 millimeter fluid collection in the liver adjacent to the gallbladder. This may be a devel oping intrahepatic abscess. Close follow-up recommended. The CBD is not dilated. No radiopaque brien culi evident within the CBD. 3. Hepatomegaly and hepatic steatosis. 4. Bilateral inguinal hernias, right larger than left. The right hernia sac measures 9 cm length and contains 6 cm of the urinary bladder (no bowel loops within the hernia sac). 5. Atherosclerotic abdominal aorta with an hourglass shaped aneurysm with maximum external diameter 3.1 cm. There is a nonobstructive dissection flap in the distal abdominal aorta. This extends to bu t not beyond the aortic bifurcation level. Study 1st read by [facility] RADIATION DOSE DELIVERED: 1,280.52mGy.cm Total DLP DATA REPOSITORY: All CT scans at this facility are submitted to the National Radiology Data Registry (NRDR) Dose Index Registry (DIR) with the [employer] (ACR). RADIATION OPTIMIZATION: All CT scans at this facility use at least one of these dose optimization te chniques: automated exposure control; mA and/or kV adjustment per patient size (includes targeted exa ms where dose is matched to clinical indication); or iterative reconstruction.
--- NOTE | 2021-08-05 20:51 | W.ED.GENAD ---
Discharge Plan Disposition Patient Disposition: [facility] Condition: Critical Discharge Details Clinical Impression: Acute cholecystitis, Sepsis Primary Care Provider: Deepa Oliva V ED Provider: Reji Byrnes Home Meds and New Rx's Prescriptions: No Action tamsulosin 0.4 MG capsule 0.8 mg PO DAILY RF: 0 aspirin [Aspir-Low] 81 MG tablet,delayed release (DR/EC) 81 mg PO DAILY AM RF: 0 furosemide [Lasix] 80 MG tablet 80 mg PO DAILY RF: 0 ascorbic acid (vitamin C) [Vitamin C With Dejah Hips] 1,000 MG tablet 1 tab PO DAILY RF: 0 saw palmetto 500 MG capsule 500 mg PO DAILY RF: 0 magnesium oxide 400 MG tablet 400 mg PO DAILY Qty: 30 RF: 0 fluoxetine [Prozac] 20 mg Capsule 20 mg PO DAILY RF: 0 levothyroxine [Synthroid] 50 mcg Tablet 25 mcg PO DAILY RF: 0 pantoprazole 20 mg Tablet,Delayed Release (Dr/Ec) 20 mg PO DAILY RF: 0 atorvastatin 40 mg Tablet 40 mg PO DAILY RF: 0 clopidogrel 75 mg Tablet 75 mg PO DAILY RF: 0 nitroglycerin [Nitrostat] 0.4 mg Tablet, Sublingual 0.4 mg SUBLINGUAL Q5-15M PRNRF: 0 losartan 25 mg tablet 25 mg PO DAILY RF: 0 polyethylene glycol 3350 17 gram powder in packet 17 g PO DAILY RF: 0 loratadine 10 mg Tablet 10 mg PO DAILY RF: 0 Theragran Tablet 1 tab PO DAILY RF: 0 cyanocobalamin (vitamin B-12) [Vitamin B-12] 1,000 mcg/mL Solution 1,000 mcg SUBCUT QWEEK RF: 0 Medical Decision Making -- 76-year-old male with history of AAA status post stent, coronary artery disease, COPD and pulmonary hypertension, diabetes, hyperlipidemia, hypertension, here with fatigue today. Recent chest pain and abdominal pain. Patient hypotensive on initial evaluation by EMS, Levophed infusion started and blood pressure now improved but still hypotensive. Plan to continue Levophed infusion. Patient does have some mild right-sided upper abdominal tenderness. Concern for potential aortic dissection. Plan to obtain stat CTA of the chest abdomen pelvis to assess for acute life-threatening intra-abdominal surgical process. Given concern for internal hemorrhage, I have ordered stat blood. Screening ECG was reviewed and interpreted by me: Sinus rhythm 95 bpm, left anterior fascicular block, low voltage, no STEMI, please see report. --CT the abdomen pelvis reviewed by me and I do not see any free fluid consistent with hemorrhage. I have canceled blood and will give IV fluid bolus. Map being maintained in the upper 50s to low 60s on Levophed infusion. Patient received normal saline 500 mL bolus by EMS plan to reassess after additional 1 L crystalloid bolus. Labs reviewed and leukocytosis noted. I am concerned about inflammatory changes around his gallbladder on CT. I will initiate coverage with broad-spectrum antibiotics Levaquin and Flagyl to treat for sepsis. --I do have an phlebotomy technologist here available [facility] and will obtain right upper quadrant ultrasound. Blood cx pending. --Patient was reassessed multiple times. His map has improved to now 65 with IV fluids and still on Levophed drip at 25 mcg/min. I called [facility] [place] to request transfer and was on hold for 10 minutes with no answer transfer center. I then called [facility] transfer center to request transfer. Awaiting callback. I did then called [facility] transfer [place] again was able to get through and has requested transfer. Awaiting callback. Patient and his were updated as to plan. -- I spoke with [facility] critical care Dr. Harrell and Dr. Galeana surgery - they will accept patient in transfer. Dr. Pichardo accepts patient in transfer. HPI General Mode of arrival: ambulatory. Date/Time Provider Initiated Documentation: 08/05/21 20:50. Limitations to Documentation: no limitations. Information obtained by: patient. HPI Narrative: 76-year-old male with history of abdominal aortic aneurysm with dissection, pulmonary hypertension, COPD, hypertension, hyperlipidemia, diabetes, coronary artery disease, CHF, here with chief complaint of generalized weakness. Weakness and fatigue moderate to severe. No modifiers. EMS was called and found the patient be hypotensive with systolic in the 50s. Family also note low blood pressure in the 50s to 60s today. EMS initiated norepinephrine infusion and BP has improved to systolic in the 70s. Patient was seen in ED 2 days ago for left sided chest pain and upper abdominal pain. He had CTA of chest and abd/pelv that was negative. He left AMA. He notes he had upper abdominal pain yesterday. No pain now. He denies associated fever. Related Data Home Medications Medication Instructions Recorded Confirmed aspirin [Aspir-Low] 81 mg PO DAILY AM 09/01/13 08/05/21 tamsulosin 0.8 mg PO DAILY 09/01/13 08/05/21 furosemide [Lasix] 80 mg PO DAILY 11/11/13 08/05/21 ascorbic acid (vitamin C) [Vitamin 1 tab PO DAILY 01/21/15 08/05/21 C With Dejah Hips] saw palmetto 500 mg PO DAILY 01/21/15 08/05/21 magnesium oxide 400 mg PO DAILY #30 tab 03/28/17 08/05/21 atorvastatin 40 mg PO DAILY 05/13/21 08/05/21 clopidogrel 75 mg PO DAILY 05/13/21 08/05/21 fluoxetine [Prozac] 20 mg PO DAILY 05/13/21 08/05/21 levothyroxine [Synthroid] 25 mcg PO DAILY 05/13/21 08/05/21 nitroglycerin [Nitrostat] 0.4 mg SUBLINGUAL Q5-15M PRN 05/13/21 08/05/21 pantoprazole 20 mg PO DAILY 05/13/21 08/05/21 loratadine 10 mg PO DAILY 08/03/21 08/05/21 losartan 25 mg PO DAILY 08/03/21 08/05/21 polyethylene glycol 3350 17 g PO DAILY 08/03/21 08/05/21 therapeutic multivitamin 1 tab PO DAILY 08/03/21 08/05/21 [Theragran] cyanocobalamin (vitamin B-12) 1,000 mcg SUBCUT QWEEK 08/05/21 08/05/21 [Vitamin B-12] Previous Rx's Medication Instructions Recorded magnesium oxide 400 mg PO DAILY #30 tab 03/28/17 Allergies Allergy/AdvReac Type Severity Reaction Status Date / Time Penicillins Allergy Severe Anaphylaxsi Unverified 08/05/21 20:36 s donepezil [From Aricept] Allergy Mild mild per Unverified 08/05/21 20:36 pcp chart adenosine Allergy Unverified 08/05/21 20:36 metformin [From Glucophage] Allergy per pcp Unverified 08/05/21 20:36 chart--moderate codeine AdvReac Intermediate Dizziness/L Unverified 08/05/21 20:36 ightheade General Stated Complaint: GenMedical DANIEL: 2 Review of Systems All systems reviewed & are unremarkable except as noted in HPI and below Constitutional Constitutional: Reports fatigue, Denies fever(s) and Reports lethargy Cardiovascular Cardiovascular: Denies chest pain Gastrointestinal Gastrointestinal: Denies abdominal pain Endocrine Endocrine: Reports fatigue [facility] Medical History Apical mural thrombus Atrial fib/flutter, transient Mena's palsy BPH (benign prostatic hyperplasia) CAD (coronary artery disease) Cardiomyopathy CHF (congestive heart failure) COPD (chronic obstructive pulmonary disease) DM (diabetes mellitus) HTN (hypertension) Hypothyroidism Obesity (BMI 30.0-34.9) ORLIN (obstructive sleep apnea) Pulmonary hypertension Renal insufficiency Surgical History Appendectomy Colonoscopy - MAC (08/04/16) Hx of cardiac cath in [place] in the - unknown intervention [facility] [place] - clean coronaries, severe pulmonary hypertension, no prior stent found Family History Mother Cervical cancer Other Colon cancer Social History Smoking/Tobacco Use Status: Former Tobacco Use Smoking risk assessment performed?: Yes Drug use: Never Substance use type: does not use Details: states he has increased his alcohol use recently due to the heat Do you feel safe at home: Yes Do you feel safe in your relationship?: Yes Exam Const General: cooperative HENMT Mouth: moist mucous membranes Eyes Conjunctivae: normal conjunctivae Sclera: normal sclerae Neck Neck: trachea midline and supple Resp Auscultation: clear to auscultation bilaterally, no rales, no rhonchi and no wheezes Cardio Rate: regular rate and not tachycardic Rhythm: regular rhythm GI Inspection: abdominal wall ecchymosis Palpation: soft, not firm, no guarding, no masses, not rigid and tender in the RUQ Skin General skin exam: no rashes or lesions noted Neuro General: patient alert, patient awake, patient oriented x3 and tone normal Extrem General: edema Laterality: bilateral (trace) Psych Appearance: grossly normal Mental Status: mental status grossly normal Speech and Movement: speech and movement normal Course Vital Signs Vital signs: Vital Signs Temperature 36.7 C 08/05/21 20:29 Pulse 99 H 08/05/21 20:29 Respiratory Rate 27 H 08/05/21 20:29 Blood Pressure 79/48 L 08/05/21 20:29 Pulse Oximetry 97 08/05/21 20:29 Temperature 36.7 C 08/05/21 20:29 Temperature Source Temporal Artery Scan 08/05/21 20:29 Pulse 99 H 08/05/21 20:29 Respiratory Rate 27 H 08/05/21 20:29 Respiratory Effort 08/05/21 20:49 Blood Pressure 79/48 L 08/05/21 20:29 Blood Pressure Position Supine 08/05/21 20:29 Pulse Oximetry 97 08/05/21 20:29 Oxygen Delivery Method Room Air 08/05/21 20:29 Oxygen Flow Rate 0 08/05/21 20:29 Pain Level 0 08/05/21 20:29 Lab/Test Results Lab/Test Results: Laboratory Tests Range/Units 08/05/21 08/05/21 20:40 20:40 VBG Lactate (0.6-1.4) mmol/L 2.0 H Crossmatch See Detail Critical Care Time Critical Care Time Critical Care Time: Yes Total Critical Care Time: 90 Attestation: I spent greater than 90 minutes addressing this patient's immediate life threats. Please see MDM section of note. This time was spent engaged in work directly related to the patient's care, exclusive of separate procedures, and failure to initiate these interventions would have likely resulted in clinically significant or life threatening deterioration in the patient's condition.
[2021-08-05 20:52] LABS: Abs Immature Grans 0.32 10^3/uL (0.0-0.06); HCT 30.9 % (40.0-50.0); HGB 10.5 g/dL (13.5-17.5); MCH 33.1 pg (27.0-33.0); MCV 97.5 fL (80-95); MPV 10.2 fL (8.0-11.0); Nucleated RBC 0 %; Platelet Count 176 10^3/uL (130-400); RBC 3.17 10^6/uL (4.36-5.78); RDW 12.6 % (11.8-14.1); RDW-SD 45.6 fL; WBC 21.77 10^3/uL (4.4-10.8)
[2021-08-05 21:05] LABS: INR 1.2 (0.9-1.1); PTT Activated 33.2 sec (21.0-27.5); Prothrombin Time 11.8 sec (9.3-11.0)
[2021-08-05 21:08] LABS: ALT 27 U/L (16-63); AST 22 U/L (15-37); Albumin 2.6 g/dL (3.4-5.0); Alkaline Phosphatase 106 U/L (46-116); BUN 25 mg/dL (7-18); Bilirubin, Total 0.8 mg/dL (0.2-1.0); CREATININE 2.2 mg/dL (0.70-1.30); Calcium 8.5 mg/dL (8.5-10.1); Chloride 95 mmol/L (98-107); Estimated GFR 29.17 (mL/min/1.73m2); Glucose 125 mg/dL (74-106); Potassium 4.5 mmol/L (3.5-5.1); Sodium 128 mmol/L (136-145); Total Protein 6.3 g/dL (6.4-8.2)
[2021-08-05] MEDS: Omnipaque 350 MG/ML 100 ML BTL IJ (21:09)
[2021-08-05] MEDS: Normal Saline Flush 10 ML SYR IVP (21:10)
[2021-08-05 21:22] LABS: Absolute Lymphocyte Count 0.87 10^3/uL (1.2-3.4); Absolute Monocyte Count 3.05 10^3/uL (0.1-0.8); Absolute Neutrophil Count 17.63 10^3/uL (1.2-6.7); Bands % 1; Myelocytes % 1
[2021-08-05 21:23] LABS: Diff Comment Manual Differential; RBC Morphology Normal
[2021-08-05] MEDS: Lactated Ringers 1,000 ML 1000 ML IV (21:28)
[2021-08-05 21:29] LABS: Bilirubin Moderate (Negative); Blood Moderate (Negative); Clarity Sl Cloudy (Clear); Glucose Negative (Negative); Ketones Trace mg/dL (Negative); Leukocyte Esterase Negative (Negative); Nitrite Negative (Negative); pH 5.5 (5-8)
[2021-08-05 21:41] LABS: Bacteria Moderate HPF (Negative); C & S Indicated? Yes; Casts 3-5 Fine Granular LPF (Negative); Crystals Few Amorphous HPF (Negative); Epithelial Cells Rare HPF (Negative); Mucus Negative (Negative); Other Cells Rare Transitional (Negative)
--- NOTE | 2021-08-05 22:02 | DI.VRAD_ITS ---
Addendum created by Ivan Byrnes MD on 08/05/2021 10:02:28 PM EDT: IMPRESSION: 1. Ectatic abdominal aorta. Mild multifocal atherosclerotic disease within abdominal aorta with short segment dissection within distal abdominal aorta, no rupture or leak. 2. Likely acute cholecystitis, correlate clinically, consider correlation with abdominal sonogram. Cannot rule out focus of developing pericholecystic liver abscess. 3. See the body of the report for the remainder of ancillary findings. Initial report created on 08/05/2021 10:01:39 PM EDT: PROCEDURE INFORMATION: Exam: CTA Chest With Contrast Exam date and time: 08/05/2021 8:51 PM Age: 76 years old Clinical indication: Other: Hypotension, known aaa TECHNIQUE: Imaging protocol: Computed tomographic angiography of the chest with contrast. 3D rendering (Not supervised by radiologist): MIP and/or 3D reconstructed images were created by the technologist. Radiation optimization: All CT scans at this facility use at least one of these dose optimization techniques: automated exposure control; mA and/or kV adjustment per patient size (includes targeted exams where dose is matched to clinical indication); or iterative reconstruction. Contrast material: OMNIPAQUE 350; Contrast volume: 100 ml; Contrast route: INTRAVENOUS (IV); COMPARISON: CT THORAX ABD/PEL CTA 08/03/2021 9:34 AM FINDINGS: Pulmonary arteries: Pulmonary arteries are not well opacified, grossly, appear to be patent. Several small bilateral pulmonary nodules. Minimal bibasilar linear opacities of atelectasis and/or fibrosis. Aorta: Scattered atherosclerotic calcifications within thoracic aorta of normal caliber. Lungs: See Pulmonary arteries finding. Pleural spaces: Unremarkable. No pneumothorax. No pleural effusion. Heart: Mild cardiomegaly. Coronary arterial calcifications. Lymph nodes: Unremarkable. No enlarged lymph nodes. Bones/joints: Multilevel degenerative changes within thoracic spine. Soft tissues: Unremarkable. IMPRESSION: Normal caliber thoracic aorta, no dissection. Minimal atherosclerotic disease. No infiltrates or effusions. See the body of the report for the remainder of ancillary findings. PROCEDURE INFORMATION: Exam: CTA Abdomen and Pelvis With Contrast Exam date and time: 08/05/2021 8:51 PM Age: 76 years old Clinical indication: Other: Hypotension, known aaa TECHNIQUE: Imaging protocol: Computed tomographic angiography of the abdomen and pelvis with contrast material. 3D rendering (Not supervised by radiologist): MIP and/or 3D reconstructed images were created by the technologist. Radiation optimization: All CT scans at this facility use at least one of these dose optimization techniques: automated exposure control; mA and/or kV adjustment per patient size (includes targeted exams where dose is matched to clinical indication); or iterative reconstruction. Contrast material: OMNIPAQUE 350; Contrast volume: 100 ml; Contrast route: INTRAVENOUS (IV); COMPARISON: CT THORAX ABD/PEL CTA 08/03/2021 9:34 AM FINDINGS: Aorta: The abdominal aorta is atherosclerotic. Small area of dissection within distal abdominal aorta, no evidence for aortic rupture or leak. Distal abdominal aorta is ectatic, 2.4 cm in diameter. Celiac trunk and mesenteric arteries: No occlusion or significant stenosis. Renal arteries: No occlusion or significant stenosis. Right iliac arteries: No occlusion or significant stenosis. Left iliac arteries: No occlusion or significant stenosis. Liver: Hepatic steatosis. Gallbladder and bile ducts: Small focal hypodensity within liver adjacent to the gallbladder, not present on the prior study, cannot rule out developing pericholecystic abscess. Markedly distended gallbladder with pericholecystic stranding, cannot rule out acute cholecystitis. CBD is grossly unremarkable. Pancreas: Unremarkable. No mass. No ductal dilation. Spleen: Unremarkable. No splenomegaly. Adrenal glands: Unremarkable. No mass. Kidneys and ureters: Unremarkable. No solid mass. No hydronephrosis. Stomach and bowel: Unremarkable. No obstruction. No mucosal thickening. Appendix: No evidence of appendicitis. Intraperitoneal space: Unremarkable. No free air. No significant fluid collection. Lymph nodes: Unremarkable. No enlarged lymph nodes. Urinary bladder: See Soft tissues finding. Reproductive: Unremarkable as visualized. Bones/joints: No acute fracture. No dislocation. Soft tissues: Fat containing left inguinal hernia. Right inguinal hernia contains adipose tissue and portion of urinary bladder. Right inguinal hernia measures 6.6 by 4.6 centimetres, mild stranding of the contents, cannot rule out strangulation. IMPRESSION: 1. Ectatic abdominal aorta. Mild multifocal atherosclerotic disease within abdominal aorta with short segment dissection within distal abdominal aorta, no rupture or leak. 2. Likely acute cholecystitis, correlate clinically, consider correlation with abdominal sonogram. Cannot rule out focus of developing pericholecystic liver 3. See the body of the report for the remainder of ancillary findings. abscess. Dictated and Authenticated by: Ivan Byrnes MD. Ordering:HERSON Mendoza MD
--- NOTE | 2021-08-05 22:05 | DI.US_ITS ---
Exam(s) US ABDOMEN LIMITED EXAM: US ABDOMEN LIMITED CLINICAL HISTORY: pain TECHNIQUE: Ultrasound abdomen performed using standard protocol. COMPARISON: US US ABDOMEN LIMITED from 08/03/2021 US US ABDOMEN LIMITED from 08/03/[address] THORAX ABD/PEL CTA from 08/05/[address] THORAX ABD/PEL CTA from 08/05/2021 FINDINGS: There is no ascites evident. LIVER: Liver is hyperechoic indicating steatosis. GALLBLADDER/BILIARY: There are gallstones noted as well as sludge filling the entire gallbladder. Th ere is a thickened hyperemic gallbladder wall. There is an area of abnormal density in the liver adj acent to the gallbladder fundus measuring 3.1 x 1.5 x 3.4 cm, not evident on the prior ultrasound. M ay possibly represent developing abscess. The common hepatic duct isnot dilated, measuring 6mm at the level of ghanshyam hepatis. PANCREAS: There is no evidence of pancreatic mass nor dilatation of the pancreatic duct. RIGHT KIDNEY:No evidence of solid mass, calculus, nor hydronephrosis. No cortical cysts evident. ABDOMINAL AORTA AND IVC: Visualized portions exhibit normal caliber. IMPRESSION: 1. Cholelithiasis and evidence of acute cholecystitis. Patient was apparently tender over this area during scanning. Common hepatic duct is not dilated. 2. However, there is area of abnormal density adjacent to the gallbladder fundus measuring 31 x 15 x 34 millimeters. This may be developing abscess. 3. There is no generalized ascites. Patient was tender over the gallbladder during scanning today. See separate CT report. DATA REPOSITORY:
[2021-08-05 22:16] LABS: Source Nasal/Nares
[2021-08-05] MEDS: metroNIDAZOLE 500 MG/100 ML BAG 100 MG IVPB (22:23)
[2021-08-05] MEDS: levoFLOXacin 750 MG/150 ML BAG 100 MG IVPB (22:24)
[2021-08-05] MEDS: Lactated Ringers 1,000 ML 200 ML IV (22:36)
[2021-08-05 23:06] LABS: COVID-19 PCR Negative (Negative)
[2021-08-05 23:12] LABS: Lipase 67 U/L (73-393)
--- NOTE | 2021-08-05 23:31 | NUR.NOTE ---
Nursing Note: Dr. Byrnes at bedside to speak with patient and his , given update on transfer to [facility] [place].
--- NOTE | 2021-08-05 23:51 | DI.VRAD_ITS ---
PROCEDURE INFORMATION: Exam: US Abdomen, Limited; Right Upper Quadrant Exam date and time: 08/05/2021 10:12 PM Age: 76 years old Clinical indication: Patient HX: Hypotension, severe ruq pain, . TECHNIQUE: Imaging protocol: US abdomen. Real time ultrasound with image documentation. Limited exam focused on the right upper quadrant. COMPARISON: SD US ABDOMEN LIMITED 08/03/2021 11:34 AM FINDINGS: Liver: The liver is echogenic and enlarged, 19.4 cm in craniocaudal dimension. Gallbladder: Thickened wall of the gallbladder at 6 mm. Gallbladder contains sludge/debris. Gallbladder is distended. Gallbladder contains small calculus. Hypoechoic focus within liver adjacent to the gallbladder, may correspond to the findings on the recent CT, cannot rule out developing pericholecystic abscess. Positive sonographic Calvillo's sign. Common bile duct: CBD is normal, upper limits of normal size at 6 mm. Pancreas: The pancreas is not well seen, obscured by the bowel gas. Right kidney: Right kidney is normal size, mild renal cortical thinning. No hydronephrosis on the right. Intraperitoneal space: Trace perihepatic ascites. IMPRESSION: 1. Hepatomegaly and hepatic steatosis. 2. Distended gallbladder containing sludge and/or debris. Small calculus within dependent portion of the gallbladder. Thickened wall, cannot rule out acute cholecystitis. CBD is at the upper limits of normal size. Hypoechoic focus within liver adjacent to the gallbladder, may correspond to the findings on the recent CT, cannot rule out developing pericholecystic liver abscess. Most recent sonogram dated August 03, 2021 demonstrated no gallbladder wall thickening and no pericholecystic liver lesion. Dictated and Authenticated by: Ivan Byrnes MD. Ordering:HERSON Mendoza MD
[2021-08-06] VITALS (11 sets, daily range): BP systolic 103–118; BP diastolic 56–87; PULSE 88–94; RESP 14–20; TEMP 36.3; O2SAT 94–96
[2021-08-06] MEDS: fentaNYL 100 MCG/2 ML VIAL 25 MCG IVP (00:33)
== END 2021-08-06 00:50 | disposition short-term general hospital (02) ==
PROVIDERS: Emergency Provider Student in an Organized Health Care Education/Training Program; PCP Family Medicine
DX: K81.0 Acute cholecystitis (principal); A41.9 Sepsis, unspecified organism; I95.9 Hypotension, unspecified; I71.4 Abdominal aortic aneurysm, without rupture
CPT/HCPCS: 74177; 80053; 83690; 86850; 86900; 86901; 86920; 87040; 87635; 93005; 96361; 96365; 96366; 96368; 96375; 96376; 99291; 99292; 76705; 81003; 81015; 83605; 85025; 85610; 85730; 87086; 93010; J1956; J3010; J3490

== ENCOUNTER 2021-08-18 03:37 | Outpatient (RCR) | payer MEDICARE, OTHER, SELFPAY ==
[2021-08-17] MEDS: Normal Saline Flush 10 ML SYR IVP (13:19)
[2021-08-18] MEDS: Normal Saline Flush 10 ML SYR IVP (14:13)
== END 2021-08-18 23:59 | disposition home or self-care (01) ==
LOC: INF 03:37
PROVIDERS: PCP Family Medicine; Visit Provider Family Medicine
DX: K65.9 Peritonitis, unspecified; Z79.2 Long term (current) use of antibiotics; Z45.2 Encounter for adjustment and management of vascular access device; B95.2 Enterococcus as the cause of diseases classified elsewhere; B37.89 Other sites of candidiasis
CPT/HCPCS: 96365; J0878

== ENCOUNTER 2021-08-24 01:58 | Outpatient (RCR) | payer MEDICARE, OTHER, SELFPAY ==
[2021-08-19] MEDS: Normal Saline Flush 10 ML SYR IVP (12:55)
[2021-08-20 12:33] VITALS: BP 137/76; PULSE 83; RESP 20; TEMP 36.5; O2SAT 99
[2021-08-20] MEDS: Normal Saline Flush 10 ML SYR IVP ×2 (13:03→14:19)
[2021-08-20] MEDS: Water,Injection,Sterile 10 ML VIAL (13:11)
[2021-08-20] MEDS: Alteplase 2 MG VIAL IJ (13:17)
[2021-08-20 13:58] VITALS: BP 121/75; PULSE 84; RESP 18; TEMP 36.5; O2SAT 96
[2021-08-21] MEDS: Normal Saline Flush 10 ML SYR IVP (12:26)
[2021-08-22 13:20] LABS: Abs Immature Grans 0.05 10^3/uL (0.0-0.06); Absolute Basophil Count 0.04 10^3/uL (0.0-0.2); Absolute Eosinophil Count 0.11 10^3/uL (0.0-0.7); Absolute Lymphocyte Count 1.43 10^3/uL (1.2-3.4); Absolute Monocyte Count 0.81 10^3/uL (0.1-0.8); Basophils % 0.4; HCT 32.6 % (40.0-50.0); HGB 10.3 g/dL (13.5-17.5); Immature Grans % 0.5; Lymphocytes % 13.2; MCH 31.8 pg (27.0-33.0); MCHC 31.6 % (32.0-36.0); MCV 100.6 fL (80-95); Monocytes % 7.5; Neutrophils % 77.4; Nucleated RBC 0 %; Platelet Count 333 10^3/uL (130-400); RBC 3.24 10^6/uL (4.36-5.78); RDW 13.6 % (11.8-14.1); RDW-SD 49.7 fL; WBC 10.82 10^3/uL (4.4-10.8)
[2021-08-22 13:21] LABS: Absolute Neutrophil Count 8.37 10^3/uL (1.2-6.7)
[2021-08-22 13:39] LABS: ALT 63 U/L (16-63); AST 65 U/L (15-37); Albumin 1.9 g/dL (3.4-5.0); Alkaline Phosphatase 221 U/L (46-116); Anion Gap 4.8 mmol/L (3-11); BUN 8 mg/dL (7-18); Bilirubin, Total 0.4 mg/dL (0.2-1.0); CO2 35.2 mmol/L (21.0-32.0); CREATININE 0.8 mg/dL (0.70-1.30); Calcium 8.8 mg/dL (8.5-10.1); Chloride 98 mmol/L (98-107); Glucose 126 mg/dL (74-106); Potassium 3.5 mmol/L (3.5-5.1); Sodium 138 mmol/L (136-145); Total Protein 7.3 g/dL (6.4-8.2)
[2021-08-22] MEDS: Normal Saline Flush 10 ML SYR IVP (13:41)
[2021-08-23 13:20] LABS: C-Reactive Protein 16.76 mg/dL (0.0-0.3); Creatine Kinase 15 U/L (39-308)
[2021-08-23] MEDS: Normal Saline Flush 10 ML SYR IVP (13:39)
== END 2021-09-18 23:59 | disposition home or self-care (01) ==
LOC: INF 01:58
PROVIDERS: Internal Medicine Infectious Disease; PCP Family Medicine; Visit Provider Family Medicine
DX: K65.9 Peritonitis, unspecified (principal); B95.2 Enterococcus as the cause of diseases classified elsewhere; B37.89 Other sites of candidiasis; Z79.2 Long term (current) use of antibiotics
CPT/HCPCS: 36592; 80053; 82550; 96365; 85025; 86140; J0878; J2997; J3490

== ENCOUNTER 2021-08-31 08:39 | Outpatient (CLI) | payer MEDICARE, OTHER, SELFPAY ==
--- NOTE | 2021-08-31 | DI.CT_ITS ---
Exam(s) CT ABDOMEN PELVIS W EXAM: CT ABDOMEN PELVIS W CLINICAL HISTORY: NAUSEA,VOMITING,CHOLECYSTITIS,BILE DUCT OBSTRUCTION. TECHNIQUE: Imaging Protocol: Axial computed tomography images with coronal and sagittal reformatted images were created and reviewed CONTRAST MATERIAL: Intravenous: Omnipaque 100cc Oral: Yes COMPARISON: CT CT THORAX ABD/PEL CTA from 08/05/2021 FINDINGS: VISUALIZED LUNG BASES: There is now significant sized and unilateral right pleural effusion and there is significant volume loss in the basal segments of the right lower lobe. There is also a small per icardial effusion now evident.. ABDOMEN: LIVER/BILIARY: The gallbladder is now surgically absent. There is a pigtail drainage catheter in the gallbladder fo ssa region. Small amount of air and fluid is seen around the pigtail. However, there is now a large subcapsular elliptical fluid collection in the right hepatic lobe which measures 12.5 cm AP x 8.5 cm craniocaudal by 7.4 cm wide. This was not evident on 08/05/2021. The fluid therein is homogeneous with density measurement 5-6 HU. No gas bubbles within this fluid collection. There is a stent in the lower CBD, not previously present. Some fluid is seen within the stent and C BD above this level is upper normal diameter. Some air is seen within nondilated intrahepatic ducts in the left hepatic lobe. There is no obvious mass in the pancreatic head nor elsewhere in the pancr eas and the pancreatic duct is not dilated. No peripancreatic fluid collections nor peripancreatic s treaking. PANCREAS: As above SPLEEN: Spleen is not enlarged. No obvious intrasplenic lesions. Splenic and portal veins are paten t. ADRENALS: There are no significant adrenal masses. KIDNEYS:No cysts evident. No solid renal masses. No calculi nor hydronephrosis.. ABDOMINAL AORTA: There is an hourglass-shaped infrarenal abdominal aortic aneurysm. Maximum diameter is 3.3 cm LYMPH NODES:There is no retroperitoneal nor paraaortic adenopathy. ABDOMINAL WALL: No evidence of significant anterior abdominal wall nor inguinal hernia. GI: There is some streaking but no extravasation of oral contrast from the duodenum which is immediat alexy adjacent to the pigtail drainage catheter. There is a colitis pattern in the right-side of the colon and also involving most of the transverse c olon. Probably also involving the left side of the colon but appearing less so. PELVIS: GI: No evidence of appendicitis.There is no significant sigmoid diverticular disease. LYMPH NODES: There is no intrapelvic nor inguinal adenopathy. REPRODUCTIVE: Prostate not enlarged. Seminal vesicles unremarkable. URINARY BLADDER: Right inguinal hernia again noted and this is again noted to contain part of the uri nary bladder which descends down the right inguinal canal, similar to the previous study. OSSEOUS: No significant osseous lesions. IMPRESSION: 1. Compared to the study of 08/05/2021 there has been interval cholecystectomy and there is a percuta neous pigtail drainage catheter at the level of the gallbladder fossa with mild fluid and air are chelsi rounding the pigtail. This may be related to remnant abscess or possibly just related to periodic fl ushing/catheter maintenance. 2. There is a new large well-defined intrahepatic-subcapsular collection in the right hepatic lobe wh ich measures 12.5 x 7.4 by 8.5 cm which was not evident on the prior study. Although it exhibits uni form in fluid density measurement of 4-5 HU and does not contain gas bubble, the possibly that this l arge new fluid collection may represent an abscess is not excluded. 3. There is a CBD stent which appears to be in satisfactory position. Some air is seen within nondil ated intrahepatic ducts. The pancreatic duct is not dilated and there is no evidence of acute pancre atitis. No pancreatic mass evident. 4. There is a moderate size right pleural effusion which was not previously present and volume loss i n the right lower lobe basal segment, most probably relaxation atelectasis. 5. there is a colitis pattern evident involving most of the colon, more prominent on the right side. 6. Abdominal aortic aneurysm again noted. No evidence of occlusion of the celiac and superior mesen teric arteries. No emboli seen within the SMA. The LD is thin vessel but appears patent. 7. There is a right inguinal hernia which is again noted to contain a large part of the urinary blad shree which descends down the right inguinal canal, similar to the previous study of 08/05/2021. RADIATION DOSE DELIVERED: 1,014.59mGy.cm Total DLP DATA REPOSITORY: All CT scans at this facility are submitted to the National Radiology Data Registry (NRDR) Dose Index Registry (DIR) with the [employer] ([employer]). RADIATION OPTIMIZATION: All CT scans at this facility use at least one of these dose optimization te chniques: automated exposure control; mA and/or kV adjustment per patient size (includes targeted exa ms where dose is matched to clinical indication); or iterative reconstruction.
[2021-08-31] MEDS: Breeza Beverage 473 ML BTL 946 ML PO (08:32)
[2021-08-31] MEDS: Omnipaque 350 MG/ML 50 ML BTL PO (08:33)
[2021-08-31 09:21] LABS: HCT 32.2 % (40.0-50.0); HGB 10.1 g/dL (13.5-17.5); MCH 31.1 pg (27.0-33.0); MCHC 31.4 % (32.0-36.0); MCV 99.1 fL (80-95); MPV 9.5 fL (8.0-11.0); Platelet Count 386 10^3/uL (130-400); RBC 3.25 10^6/uL (4.36-5.78); RDW 13.4 % (11.8-14.1); RDW-SD 48.3 fL; WBC 12.01 10^3/uL (4.4-10.8)
[2021-08-31] MEDS: Normal Saline - Diluent 50 ML VIAL IV (10:11)
[2021-08-31] MEDS: Omnipaque 350 MG/ML 100 ML BTL IJ (10:12)
[2021-08-31] MEDS: Normal Saline Flush 10 ML SYR IVP (10:12)
[2021-08-31 10:24] LABS: ALT 150 U/L (16-63); AST 59 U/L (15-37); Albumin 1.9 g/dL (3.4-5.0); Alkaline Phosphatase 243 U/L (46-116); Anion Gap 9.3 mmol/L (3-11); BUN 13 mg/dL (7-18); Bilirubin, Total 0.4 mg/dL (0.2-1.0); CO2 27.7 mmol/L (21.0-32.0); CREATININE 0.8 mg/dL (0.70-1.30); Calcium 9.2 mg/dL (8.5-10.1); Chloride 99 mmol/L (98-107); Glucose 116 mg/dL (74-106); Potassium 3.6 mmol/L (3.5-5.1); Sodium 136 mmol/L (136-145); Total Protein 7.4 g/dL (6.4-8.2)
== END 2021-08-31 08:59 ==
PROVIDERS: PCP Family Medicine; Visit Provider Family Medicine
DX: R11.2 Nausea with vomiting, unspecified (principal); K80.61 Calculus of gallbladder and bile duct with cholecystitis, unspecified, with obstruction; I71.00 Dissection of unspecified site of aorta; I50.9 Heart failure, unspecified; K40.90 Unilateral inguinal hernia, without obstruction or gangrene, not specified as recurrent; I71.4 Abdominal aortic aneurysm, without rupture; J90 Pleural effusion, not elsewhere classified; K51.80 Other ulcerative colitis without complications; R93.2 Abnormal findings on diagnostic imaging of liver and biliary tract
CPT/HCPCS: 80053; 85027; 74177; J3490; Q9967

== ENCOUNTER 2021-08-31 16:05 | Outpatient (REF) | payer MEDICARE, OTHER, SELFPAY | END 2021-08-31 16:06 | disposition home or self-care (01) | LOC: LBN 16:05 | PROVIDERS: PCP Family Medicine; Visit Provider Family Medicine | DX: K81.0 Acute cholecystitis (principal); K83.2 Perforation of bile duct; B95.2 Enterococcus as the cause of diseases classified elsewhere; B37.89 Other sites of candidiasis; Z48.815 Encounter for surgical aftercare following surgery on the digestive system | CPT/HCPCS: 87070; 87205 ==

== ENCOUNTER 2021-09-12 11:29 | Emergency (ER) | payer MEDICARE, OTHER, SELFPAY ==
[2021-09-12] VITALS (56 sets, daily range): BP systolic 112–149; BP diastolic 57–87; PULSE 75–108; RESP 11–27; TEMP 36.2; O2SAT 96–100
--- NOTE | 2021-09-12 11:30 | DI.CT_ITS ---
Exam(s) CT HEAD WO EXAM: CT HEAD WO CLINICAL HISTORY: AMS. TECHNIQUE: Imaging Protocol: Axial computed tomography images with coronal and sagittal reformatted images were created and reviewed COMPARISON: CT CT HEAD CERVICAL SPINE WO from 06/07/2020 FINDINGS: There are no skull fractures nor fluid in the visualized paranasal sinuses. There is no evidence of intracranial hemorrhage, mass effect, or shift of midline structures. There are no extra-axial fluid collections. The ventricles are not enlarged or shifted and there is no blo od within the ventricular system nor within the basal cisterns. There is periventricular hypodensity consistent chronic small vessel white matter disease. No evidence of acute infarct. IMPRESSION: No acute intracranial findings on this noninfused CT scan of the brain. Chronic small-vessel white matter ischemic changes noted. RADIATION DOSE DELIVERED: 867.39mGy.cm Total DLP DATA REPOSITORY: All CT scans at this facility are submitted to the National Radiology Data Registry (NRDR) Dose Index Registry (DIR) with the [employer] ([employer]). RADIATION OPTIMIZATION: All CT scans at this facility use at least one of these dose optimization te chniques: automated exposure control; mA and/or kV adjustment per patient size (includes targeted exa ms where dose is matched to clinical indication); or iterative reconstruction.
--- NOTE | 2021-09-12 11:30 | RT.EKG_ITS ---
APPROVED REPORT Exam: Resting ECG Reason for Exam: AMS Patient Location: E HR:87 bpm ECG Measurements Heart Rate 87 AXIS RI 223 P 45 QRSd 105 QRS -36 QT 390 T 7 QTc 469 Conclusion Sinus rhythm...normal P axis, V-rate 60- 99 Prolonged RI interval...RI >220, V-rate 50- 90 Inferior infarct, old...Q >35mS, II III aVF sinus rhythm at 87, left axis, prolonged RI interval, inferior Q waves, no STEMI, no major change fro m prior, nondiagnostic EKG
--- NOTE | 2021-09-12 11:44 | ED.GENADUL_ITS ---
Discharge Plan Disposition Patient Disposition: [facility] Condition: Serious Discharge Details Clinical Impression: Weakness, Hepatic abscess Primary Care Provider: Deepa Oliva V ED Provider: Kely Byrnes Home Meds and New Rx's Prescriptions: No Action tamsulosin 0.4 MG capsule 0.8 mg PO DAILY RF: 0 aspirin [Aspir-Low] 81 MG tablet,delayed release (DR/EC) 81 mg PO DAILY AM RF: 0 furosemide [Lasix] 80 MG tablet 80 mg PO DAILY RF: 0 ascorbic acid (vitamin C) [Vitamin C With Dejah Hips] 1,000 MG tablet 1 tab PO DAILY RF: 0 saw palmetto 500 MG capsule 500 mg PO DAILY RF: 0 magnesium oxide 400 MG tablet 400 mg PO DAILY Qty: 30 RF: 0 fluoxetine [Prozac] 20 mg Capsule 20 mg PO DAILY RF: 0 levothyroxine [Synthroid] 50 mcg Tablet 25 mcg PO DAILY RF: 0 pantoprazole 20 mg Tablet,Delayed Release (Dr/Ec) 40 mg PO DAILY RF: 0 atorvastatin 40 mg Tablet 40 mg PO DAILY RF: 0 clopidogrel 75 mg Tablet 75 mg PO DAILY RF: 0 nitroglycerin [Nitrostat] 0.4 mg Tablet, Sublingual 0.4 mg SUBLINGUAL Q5-15M PRNRF: 0 losartan 25 mg tablet 25 mg PO DAILY RF: 0 polyethylene glycol 3350 17 gram powder in packet 17 g PO DAILY RF: 0 loratadine 10 mg Tablet 10 mg PO DAILY RF: 0 Theragran Tablet 1 tab PO DAILY RF: 0 cyanocobalamin (vitamin B-12) [Vitamin B-12] 1,000 mcg/mL Solution 1,000 mcg SUBCUT QWEEK RF: 0 carvedilol 12.5 mg tablet 12.5 mg PO .QHS RF: 0 fluconazole 200 mg tablet 200 mg PO DAILY RF: 0 ondansetron 4 mg tablet,disintegrating 4 mg PO PRNRF: 0 daptomycin 500 mg Recon Soln 700 mg IV .Q24 HOURS RF: 0 Saccharomyces boulardii [Florastor] 250 mg Capsule 250 mg PO BID RF: 0 Discharge Data Discharge Date/Time-TO BE ENTERED AT DEPARTURE: 09/12/21 17:10 Medical Decision Making Candelario Chang is a 36-year-old man with history of coronary artery disease, CHF, COPD, diabetes, hypertension, hyperlipidemia, hypothyroidism, pulmonary hypertension recently treated for aortic dissection, recently discharged from [facility] on daptomycin and fluconazole after complications from cholecystectomy including hepatic abscess and gallbladder fossa fluid collection who presented to the emergency department with increasing fatigue and generalized weakness. On exam patient is ill and fatigued appearing but in no extremitas. He speaks quietly. Both drains are in place with normal inspection. Abdominal exam is benign. Given known hepatic abscess, gallbladder fossa abscess, and gradual progressive worsening, suspect intra-abdominal infection versus UTI, metabolic/lyte derangement, dehydration as likely possible etiologies, also possible acute coronary syndrome, possible pulmonary infection, other. Exam/history at this time is not consistent with pulmonary embolism. Plan for IV placement, EKG, telemetry, continuous oxygen patient baseline, screening labs, chest x-ray, CT head, CT abdomen/pelvis. 1345 [facility] contacted at time of CT abdomen pelvis resulted, CT shows increased size of gallbladder fossa fluid collection despite good placement of drain. Awaiting callback from general surgery at [facility]. Images pushed. 1520 [facility] transfer center contacted again, awaiting callback from general surgery, confirmed that images have been received and are available from viewing at [facility]. 1525 Called back by general surgery, Pt accepted for transfer by Dr. Stewart. Bed assigned, awaiting transport. Pt left the ED with transport without further incident. Medical Records Medical records reviewed: Yes I reviewed the patient's medical records. Imaging Data Radiologic Study: Attestation: I personally reviewed and interpreted this imaging study as follows: Radiologist's impression: Exam(s) CT ABDOMEN PELVIS W EXAM: CT ABDOMEN PELVIS W CLINICAL HISTORY: AMS, recent perforated GB and cholecystectomy. TECHNIQUE: Imaging Protocol: Axial computed tomography images with coronal and sagittal reformatted images were created and reviewed CONTRAST MATERIAL: Intravenous: Omnipaque 100cc Oral: None COMPARISON: CT CT ABDOMEN PELVIS W from 08/31/2021 FINDINGS: VISUALIZED LUNG BASES: Size of the right pleural effusion has not decreased and there is again noted volume loss in the basal segments of the right lower lobe. Left lung bases clear.. There is a small pericardial effusion noted, unchanged ABDOMEN: LIVER: There has been interval placement of another pigtail drainage catheter in the subcapsular collection over the right hepatic lobe and this has significantly decreased in size. Previously was 7 cm width and presently is 1 cm with. AP measurement of this collection is 9.7 cm. The pigtail drainage catheter remains in good position within this collection and is not kinked. GALLBLADDER/BILIARY: The 2nd pigtail drainage catheter is in the gallbladder fossa in satisfactory position but the size of the fluid collection in the gallbladder fossa has increased, presently measuring 6 by 4 by 4.5 cm. Again noted is a self expanding-style stent in the CBD which is unchanged in position. Its inferior aspect is within the duodenum. This stent measures 3.6 cm length. CBD above this level exhibits maximum diameter 8 millimeters. There is no prominent dilatation of intrahepatic ducts and the pancreatic duct is not dilated.. PANCREAS: No evidence of pancreatic mass nor dilatation of the pancreatic duct. SPLEEN: Spleen is not enlarged. No obvious intrasplenic lesions. Splenic and portal veins are patent. There is no air-gas within the dural venous system. ADRENALS: There are no significant adrenal masses. KIDNEYS:No cysts evident. No solid renal masses. No calculi nor hydronephrosis.. ABDOMINAL AORTA: There is an hourglass shaped infrarenal abdominal aortic aneurysm again noted. Maximum external diameter is 3 cm. LYMPH NODES:There is no retroperitoneal nor paraaortic adenopathy. ABDOMINAL WALL: Again noted is a right inguinal hernia which is again noted to contain part of the urinary bladder, this similar to previous. GI: No evidence of bowel obstruction. No free fluid in the dependent aspect of the pelvis. PELVIS: GI: Appendix is surgically absent.No evidence of sigmoid diverticulitis. LYMPH NODES: There is no intrapelvic nor inguinal adenopathy. REPRODUCTIVE: Prostate not enlarged. Seminal vesicles unremarkable. URINARY BLADDER: As above. Anterior right side of the urinary bladder is in the right inguinal canal. OSSEOUS: No significant osseous lesions. IMPRESSION: 1. Compared to the CT scan of 08/31/2021 there has been interval placement of a 2nd pigtail drainage catheter which has been draining the large elliptical subcapsular hepatic fluid collection. This has been reduced from previous diameter of 7 cm to approximately 1 cm at the present time. AP measurement is 9.7 cm. 2. The other pigtail drainage catheter which is in the gallbladder fossa remains in good position but the size of the fluid collection in the gallbladder fossa as increased. 3. The CBD stent remains in unchanged position and there is no gross dilatation of the biliary tree above the level of the stent. Density of contents within the stent remains fluid Hounsfield units. 4. Right side of the urinary bladder is again noted to be in the right inguinal canal, unchanged from the previous study. No improvement in the appearance of the right lung base where there is volume loss and moderate size right pleural effusion again noted. Abdominal aortic aneurysm again noted. Maximum diameter 3 cm. EXAM: XR PORTABLE CHEST AP CLINICAL HISTORY: AMS. TECHNIQUE: 2D digital imaging was performed. COMPARISON: CR,XR XR CHEST 2V PA LATERAL from 06/07/[address] ABDOMEN PELVIS W from 09/12/2021 FINDINGS: Heart size is upper normal. The mediastinum is not widened. There is a right PICC line. Its distal tip is heading cephalad into the internal jugular vein beyond the field of view. This needs readjustment. Left lung is clear. There is pleural effusion on the right side and there is a pigtail drainage catheter which is below the hemidiaphragm within the subcapsular liver collection. IMPRESSION: Right PICC line distal tip is in the jugular vein and requires readjustment. Atelectasis and pleural effusion in the right lung, as seen on the uppermost images of today's abdominal CT scan CT HEAD WO EXAM: CT HEAD WO CLINICAL HISTORY: AMS. TECHNIQUE: Imaging Protocol: Axial computed tomography images with coronal and sagittal reformatted images were created and reviewed COMPARISON: CT CT HEAD CERVICAL SPINE WO from 06/07/2020 FINDINGS: There are no skull fractures nor fluid in the visualized paranasal sinuses. There is no evidence of intracranial hemorrhage, mass effect, or shift of midline structures. There are no extra-axial fluid collections. The ventricles are not enlarged or shifted and there is no blood within the ventricular system nor within the basal cisterns. There is periventricular hypodensity consistent chronic small vessel white matter disease. No evidence of acute infarct. IMPRESSION: No acute intracranial findings on this noninfused CT scan of the brain. Chronic small-vessel white matter ischemic changes noted. Lab Data Lab results reviewed: Yes I reviewed the patient's lab results. Labs: 09/12/21 13:10 Blood Blood Culture - Final NO GROWTH 120 HOURS 09/12/21 11:45 Blood Blood Culture - Final NO GROWTH 120 HOURS 09/12/21 13:30 Urine - Reflex from Ua Urine Culture - Final Laboratory Tests Range/Units 09/12/21 09/12/21 09/12/21 11:45 11:45 11:45 WBC (4.4-10.8) 10^3/uL 14.19 H RBC (4.36-5.78) 10^6/uL 3.34 L Hgb (13.5-17.5) g/dL 10.0 L Hct (40.0-50.0) % 32.2 L MCV (80-95) fL 96.4 H MCH (27.0-33.0) pg 29.9 MCHC (32.0-36.0) % 31.1 L RDW (11.8-14.1) % 14.4 H Plt Count (130-400) 10^3/uL 396 MPV (8.0-11.0) fL 9.4 Immature Gran % 0.6 Neutrophils % 84.6 Lymphocytes % 8.2 Monocytes % 6.4 Eosinophils % 0.1 Basophils % 0.1 Nucleated RBC % % 0 Absolute Neutrophils (1.2-6.7) 10^3/uL 12.00 H Absolute Lymphocytes (1.2-3.4) 10^3/uL 1.16 L Absolute Monocytes (0.1-0.8) 10^3/uL 0.91 H Absolute Eosinophils (0.0-0.7) 10^3/uL 0.01 Absolute Basophils (0.0-0.2) 10^3/uL 0.01 VBG pH (7.31-7.41) VBG pCO2 (41-51) mmHg VBG pO2 mmHg VBG HCO3 (23-28) mmol/L VBG Total CO2 (24-29) mmol/L VBG O2 Saturation % VBG Base Excess (-2-3) mmol/L VBG Lactate (0.6-1.4) mmol/L 1.2 Sodium (136-145) mmol/L 139 Potassium (3.5-5.1) mmol/L 3.6 Chloride (98-107) mmol/L 98 Carbon Dioxide (21.0-32.0) mmol/L 36.5 H Anion Gap (3-11) mmol/L 4.5 BUN (7-18) mg/dL 12 Creatinine (0.70-1.30) mg/dL 0.9 Estimated GFR/1.73 m2 (mL/min/1.73m2) >= 60.00 Glucose (74-106) mg/dL 127 H Calcium (8.5-10.1) mg/dL 9.8 Magnesium (1.8-2.4) mg/dL 1.8 Total Bilirubin (0.2-1.0) mg/dL 0.5 AST (15-37) U/L 55 H ALT (16-63) U/L 122 H Alkaline Phosphatase (46-116) U/L 436 H Troponin I (<0.06) ng/mL < 0.05 NT-Pro-B Natriuret Pep (<300) pg/mL Total Protein (6.4-8.2) g/dL 7.8 Albumin (3.4-5.0) g/dL 2.3 L TSH (0.36-3.74) uIU/mL 1.19 Urine Color (Yellow) Urine Clarity (Clear) Urine pH (5-8) Ur Specific Lamar (1.005-1.025) Urine Protein (Negative) mg/dL Urine Ketones (Negative) mg/dL Urine Blood (Negative) Urine Nitrite (Negative) Urine Bilirubin (Negative) Urine Urobilinogen (Up TO 0.2) EU/dL Ur Leukocyte Esterase (Negative) Urine RBC (0-2) HPF Urine WBC (0-5) HPF Ur Epithelial Cells (Negative) HPF Urine Crystals (Negative) HPF Urine Bacteria (Negative) HPF Urine Casts (Negative) LPF Urine Mucus (Negative) Urine Other (Negative) Ur Culture Indicated? Urine Glucose (Negative) mg/dL COVID-19 Source SARS-CoV-2 (PCR) (Negative) Range/Units 09/12/21 09/12/21 09/12/21 11:45 11:45 12:10 WBC (4.4-10.8) 10^3/uL RBC (4.36-5.78) 10^6/uL Hgb (13.5-17.5) g/dL Hct (40.0-50.0) % MCV (80-95) fL MCH (27.0-33.0) pg MCHC (32.0-36.0) % RDW (11.8-14.1) % Plt Count (130-400) 10^3/uL MPV (8.0-11.0) fL Immature Gran % Neutrophils % Lymphocytes % Monocytes % Eosinophils % Basophils % Nucleated RBC % % Absolute Neutrophils (1.2-6.7) 10^3/uL Absolute Lymphocytes (1.2-3.4) 10^3/uL Absolute Monocytes (0.1-0.8) 10^3/uL Absolute Eosinophils (0.0-0.7) 10^3/uL Absolute Basophils (0.0-0.2) 10^3/uL VBG pH (7.31-7.41) 7.46 H VBG pCO2 (41-51) mmHg 51 VBG pO2 mmHg 37 VBG HCO3 (23-28) mmol/L 36 H VBG Total CO2 (24-29) mmol/L 33 H VBG O2 Saturation % 68 VBG Base Excess (-2-3) mmol/L 12 H VBG Lactate (0.6-1.4) mmol/L Sodium (136-145) mmol/L Potassium (3.5-5.1) mmol/L Chloride (98-107) mmol/L Carbon Dioxide (21.0-32.0) mmol/L Anion Gap (3-11) mmol/L BUN (7-18) mg/dL Creatinine (0.70-1.30) mg/dL Estimated GFR/1.73 m2 (mL/min/1.73m2) Glucose (74-106) mg/dL Calcium (8.5-10.1) mg/dL Magnesium (1.8-2.4) mg/dL Total Bilirubin (0.2-1.0) mg/dL AST (15-37) U/L ALT (16-63) U/L Alkaline Phosphatase (46-116) U/L Troponin I (<0.06) ng/mL NT-Pro-B Natriuret Pep (<300) pg/mL 1791 H Total Protein (6.4-8.2) g/dL Albumin (3.4-5.0) g/dL TSH (0.36-3.74) uIU/mL Urine Color (Yellow) Urine Clarity (Clear) Urine pH (5-8) Ur Specific Lamar (1.005-1.025) Urine Protein (Negative) mg/dL Urine Ketones (Negative) mg/dL Urine Blood (Negative) Urine Nitrite (Negative) Urine Bilirubin (Negative) Urine Urobilinogen (Up TO 0.2) EU/dL Ur Leukocyte Esterase (Negative) Urine RBC (0-2) HPF Urine WBC (0-5) HPF Ur Epithelial Cells (Negative) HPF Urine Crystals (Negative) HPF Urine Bacteria (Negative) HPF Urine Casts (Negative) LPF Urine Mucus (Negative) Urine Other (Negative) Ur Culture Indicated? Urine Glucose (Negative) mg/dL COVID-19 Source Nasal/Nares SARS-CoV-2 (PCR) (Negative) Negative Range/Units 09/12/21 09/12/21 13:30 14:45 WBC (4.4-10.8) 10^3/uL RBC (4.36-5.78) 10^6/uL Hgb (13.5-17.5) g/dL Hct (40.0-50.0) % MCV (80-95) fL MCH (27.0-33.0) pg MCHC (32.0-36.0) % RDW (11.8-14.1) % Plt Count (130-400) 10^3/uL MPV (8.0-11.0) fL Immature Gran % Neutrophils % Lymphocytes % Monocytes % Eosinophils % Basophils % Nucleated RBC % % Absolute Neutrophils (1.2-6.7) 10^3/uL Absolute Lymphocytes (1.2-3.4) 10^3/uL Absolute Monocytes (0.1-0.8) 10^3/uL Absolute Eosinophils (0.0-0.7) 10^3/uL Absolute Basophils (0.0-0.2) 10^3/uL VBG pH (7.31-7.41) VBG pCO2 (41-51) mmHg VBG pO2 mmHg VBG HCO3 (23-28) mmol/L VBG Total CO2 (24-29) mmol/L VBG O2 Saturation % VBG Base Excess (-2-3) mmol/L VBG Lactate (0.6-1.4) mmol/L Sodium (136-145) mmol/L Potassium (3.5-5.1) mmol/L Chloride (98-107) mmol/L Carbon Dioxide (21.0-32.0) mmol/L Anion Gap (3-11) mmol/L BUN (7-18) mg/dL Creatinine (0.70-1.30) mg/dL Estimated GFR/1.73 m2 (mL/min/1.73m2) Glucose (74-106) mg/dL Calcium (8.5-10.1) mg/dL Magnesium (1.8-2.4) mg/dL Total Bilirubin (0.2-1.0) mg/dL AST (15-37) U/L ALT (16-63) U/L Alkaline Phosphatase (46-116) U/L Troponin I (<0.06) ng/mL < 0.05 NT-Pro-B Natriuret Pep (<300) pg/mL Total Protein (6.4-8.2) g/dL Albumin (3.4-5.0) g/dL TSH (0.36-3.74) uIU/mL Urine Color (Yellow) Yellow Urine Clarity (Clear) Clear Urine pH (5-8) 7.0 Ur Specific Lamar (1.005-1.025) 1.015 Urine Protein (Negative) mg/dL Trace H Urine Ketones (Negative) mg/dL Negative Urine Blood (Negative) Moderate H Urine Nitrite (Negative) Negative Urine Bilirubin (Negative) Negative Urine Urobilinogen (Up TO 0.2) EU/dL 0.2 Ur Leukocyte Esterase (Negative) Negative Urine RBC (0-2) HPF 20-50 H Urine WBC (0-5) HPF 3-5 Ur Epithelial Cells (Negative) HPF Negative Urine Crystals (Negative) HPF Negative Urine Bacteria (Negative) HPF Few Urine Casts (Negative) LPF 0-2 Hyaline Urine Mucus (Negative) Moderate Urine Other (Negative) Few Renal Ur Culture Indicated? Yes Urine Glucose (Negative) mg/dL Negative COVID-19 Source SARS-CoV-2 (PCR) (Negative) ECG Data Attestation: I personally reviewed and interpreted this ECG (s) as follows: Interpretation: EKG shows sinus rhythm at 87, left axis, prolonged ND interval, inferior Q waves, no STEMI, no major change from prior, nondiagnostic EKG HPI General Mode of arrival: EMS . Date/Time Provider Initiated Documentation: 09/12/21 11:38 . Limitations to Documentation: altered mental status . Information obtained by: patient, family, RN notes reviewed and old records reviewed . HPI Narrative: Candelario Chang is a 76-year-old man with history of abdominal aortic dissection, pulmonary hypertension, COPD, hypertension, hyperlipidemia, coronary artery disease, congestive heart failure, hypothyroidism presenting to emergency department with altered mental status. Patient is accompanied by his also present history. Patient was diagnosed with aortic dissection July 2021, treated at [facility]. Patient was then admitted back to [facility] September 01, 2021 for hepatic abscess after undergoing cholecystectomy with subsequent bile leak and gallbladder fossa collection requiring drain placement. Patient was discharged from that admission on 09/05/2021. He was discharged with PICC in place, has been receiving daptomycin and fluconazole as outpatient. Patient with hepatic drain in gallbladder fossa drain in place. Patient's reports that since discharge from the hospital patient has had good days and bad days, bad days consisting of patient feeling generally weak, very tired, and sleeping most the time. She reports that while patient does have good days, yesterday being one of them, patient seems to be doing gradually worse over time even on his good days. His appetite has been minimal. Patient has not had any specific complaints of pain or otherwise since discharge. She reports that patient sleeping for most of the day today, more than he has on other days. Patient was seen by home health nurse this morning, who noted that patient seemed significantly worsened than when they saw him a few days ago in terms of his fatigue and general weakness, and directed the patient to come to the emergency department. Patient denies pain, fevers, cough, shortness of breath, rash, swelling, vomiting, diarrhea, constipation, numbness, focal weakness. He reports fatigue and generalized weakness. Related Data Home Medications Medication Instructions Recorded Confirmed aspirin [Aspir-Low] 81 mg PO DAILY AM 09/01/13 09/12/21 tamsulosin 0.8 mg PO DAILY 09/01/13 09/12/21 furosemide [Lasix] 80 mg PO DAILY 11/11/13 09/12/21 ascorbic acid (vitamin C) [Vitamin 1 tab PO DAILY 01/21/15 09/12/21 C With Dejah Hips] saw palmetto 500 mg PO DAILY 01/21/15 09/12/21 magnesium oxide 400 mg PO DAILY #30 tab 03/28/17 09/12/21 atorvastatin 40 mg PO DAILY 05/13/21 09/12/21 clopidogrel 75 mg PO DAILY 05/13/21 09/12/21 fluoxetine [Prozac] 20 mg PO DAILY 05/13/21 09/12/21 levothyroxine [Synthroid] 25 mcg PO DAILY 05/13/21 09/12/21 nitroglycerin [Nitrostat] 0.4 mg SUBLINGUAL Q5-15M PRN 05/13/21 09/12/21 pantoprazole 40 mg PO DAILY 05/13/21 09/12/21 loratadine 10 mg PO DAILY 08/03/21 09/12/21 losartan 25 mg PO DAILY 08/03/21 09/12/21 polyethylene glycol 3350 17 g PO DAILY 08/03/21 09/12/21 therapeutic multivitamin 1 tab PO DAILY 08/03/21 09/12/21 [Theragran] cyanocobalamin (vitamin B-12) 1,000 mcg SUBCUT QWEEK 08/05/21 09/12/21 [Vitamin B-12] Saccharomyces boulardii [Florastor] 250 mg PO BID 09/12/21 09/12/21 carvedilol 12.5 mg PO .QHS 09/12/21 09/12/21 daptomycin 700 mg IV .Q24 HOURS 09/12/21 09/12/21 fluconazole 200 mg PO DAILY 09/12/21 09/12/21 ondansetron 4 mg PO PRN 09/12/21 Previous Rx's Medication Instructions Recorded magnesium oxide 400 mg PO DAILY #30 tab 03/28/17 Allergies Allergy/AdvReac Type Severity Reaction Status Date / Time Penicillins Allergy Severe Anaphylaxsi Unverified 09/12/21 11:39 s donepezil [From Aricept] Allergy Mild mild per Unverified 09/12/21 11:39 pcp chart adenosine Allergy Unverified 09/12/21 11:39 metformin [From Glucophage] Allergy per pcp Unverified 09/12/21 11:39 chart--moderate codeine AdvReac Intermediate Dizziness/L Unverified 09/12/21 11:39 ightheade General Stated Complaint: AMS/LOC DANIEL: 2 Review of Systems Narrative: Constitutional: denies fevers, reports fatigue, generalized weakness Eyes: denies eye pain ENT: denies ear pain, dental pain, sore throat Cardiovascular: denies chest pain, edema Respiratory: denies SOB, cough GI: denies abdominal pain, vomiting, diarrhea : denies flank pain MSK: denies back pain, neck pain, arthralgias, myalgias Skin: denies rash Neuro: denies headaches, numbness, focal weakness PFSH Medical History Apical mural thrombus Atrial fib/flutter, transient Mena's palsy BPH (benign prostatic hyperplasia) CAD (coronary artery disease) Cardiomyopathy CHF (congestive heart failure) COPD (chronic obstructive pulmonary disease) DM (diabetes mellitus) HTN (hypertension) Hypothyroidism Obesity (BMI 30.0-34.9) ORLIN (obstructive sleep apnea) Pulmonary hypertension Renal insufficiency Surgical History Appendectomy Colonoscopy - MAC (08/04/16) Hx of cardiac cath in [place] in the - unknown intervention [facility] 2013 - clean coronaries, severe pulmonary hypertension, no prior stent found Family History Mother Cervical cancer Other Colon cancer Social History Smoking/Tobacco Use Status: Former Tobacco Use Smoking risk assessment performed?: Yes Drug use: Never Substance use type: does not use Details: states he has increased his alcohol use recently due to the heat Do you feel safe at home: Yes Do you feel safe in your relationship?: Yes Exam Narrative Exam Narrative: Constitutional: Ill-and fatigued appearing, pleasant, speaking in quiet voice, alert HENT: head atraumatic/normocephalic/normal inspection, mucous membranes dry Eyes: conjunctiva normal, sclera normal, pupils 3mm b/l Neck: no stridor, normal ROM, trachea midline Chest: normal inspection Resp: normal work of breathing, LCTAB Cardio: normal rate, normal rhythm, no murmur appreciated GI: abdomen soft, non-tender, non-distended, gallbladder fossa and hepatic drain in place, both sites clean/dry/intact without erythema or drainage Skin: warm, dry, normal color, no rash Neuro: alert, and oriented, sleeping at times, easily arousable, manager economic 2-12 intact, motor 4/5 throughout, normal tone Ext: no edema, no posterior calf TTP Course Vital Signs Vital signs: Vital Signs Temperature 36.2 C L 09/12/21 11:29 Pulse 80 09/12/21 11:29 Respiratory Rate 21 09/12/21 11:29 Blood Pressure 121/78 09/12/21 11:29 Pulse Oximetry 100 09/12/21 11:29 Temperature 36.2 C L 09/12/21 11:29 Temperature Source Skin 09/12/21 11:29 Pulse 80 09/12/21 11:29 Respiratory Rate 21 09/12/21 11:29 Respiratory Effort Non-Labored 09/12/21 11:29 Blood Pressure 121/78 09/12/21 11:29 Blood Pressure Position Supine 09/12/21 11:29 Pulse Oximetry 100 09/12/21 11:29 Oxygen Delivery Method Nasal Cannula 09/12/21 11:29 Oxygen Flow Rate 2 09/12/21 11:29 Pain Level 0 09/12/21 11:29 Lab/Test Results Lab/Test Results: 09/12/21 11:38 Blood Blood Culture - Pending 09/12/21 11:38 Blood Blood Culture - Pending
[2021-09-12 11:54] LABS: Lactate 1.2 mmol/L (0.6-1.4)
[2021-09-12 11:55] LABS: Abs Immature Grans 0.08 10^3/uL (0.0-0.06); Absolute Monocyte Count 0.91 10^3/uL (0.1-0.8); Basophils % 0.1; Eosinophils % 0.1; HCT 32.2 % (40.0-50.0); Immature Grans % 0.6; Lymphocytes % 8.2; MCH 29.9 pg (27.0-33.0); MCHC 31.1 % (32.0-36.0); MCV 96.4 fL (80-95); MPV 9.4 fL (8.0-11.0); Monocytes % 6.4; Neutrophils % 84.6; Nucleated RBC 0 %; Platelet Count 396 10^3/uL (130-400); RBC 3.34 10^6/uL (4.36-5.78); RDW 14.4 % (11.8-14.1); RDW-SD 50.3 fL; WBC 14.19 10^3/uL (4.4-10.8)
[2021-09-12 11:56] LABS: Absolute Basophil Count 0.01 10^3/uL (0.0-0.2); Absolute Eosinophil Count 0.01 10^3/uL (0.0-0.7); Absolute Lymphocyte Count 1.16 10^3/uL (1.2-3.4); BE (Venous) 12 mmol/L (-2-3); HCO3 (Venous) 36 mmol/L (23-28); O2 Sat (Venous) 68 %; TCO2 (Venous) 33 mmol/L (24-29); pCO2 (Venous) 51 mmHg (41-51); pH (Venous) 7.46 (7.31-7.41); pO2 (Venous) 37 mmHg
[2021-09-12 12:18] LABS: ALT 122 U/L (16-63); AST 55 U/L (15-37); Albumin 2.3 g/dL (3.4-5.0); Alkaline Phosphatase 436 U/L (46-116); Anion Gap 4.5 mmol/L (3-11); BUN 12 mg/dL (7-18); Bilirubin, Total 0.5 mg/dL (0.2-1.0); CO2 36.5 mmol/L (21.0-32.0); CREATININE 0.9 mg/dL (0.70-1.30); Calcium 9.8 mg/dL (8.5-10.1); Chloride 98 mmol/L (98-107); Glucose 127 mg/dL (74-106); Magnesium 1.8 mg/dL (1.8-2.4); Potassium 3.6 mmol/L (3.5-5.1); Sodium 139 mmol/L (136-145); TSH (W/Ref FT4) 1.19 uIU/mL (0.36-3.74); Total Protein 7.8 g/dL (6.4-8.2)
[2021-09-12 12:18] LABS: Source Nasal/Nares
[2021-09-12 12:19] LABS: Troponin I < 0.05 ng/mL (<0.06)
[2021-09-12 12:22] LABS: NT-proBNP 1791 pg/mL (<300)
--- NOTE | 2021-09-12 12:45 | DI.CT_ITS ---
Exam(s) CT ABDOMEN PELVIS W EXAM: CT ABDOMEN PELVIS W CLINICAL HISTORY: AMS, recent perforated GB and cholecystectomy. TECHNIQUE: Imaging Protocol: Axial computed tomography images with coronal and sagittal reformatted images were created and reviewed CONTRAST MATERIAL: Intravenous: Omnipaque 100cc Oral: None COMPARISON: CT CT ABDOMEN PELVIS W from 08/31/2021 FINDINGS: VISUALIZED LUNG BASES: Size of the right pleural effusion has not decreased and there is again noted volume loss in the basal segments of the right lower lobe. Left lung bases clear.. There is a small pericardial effusion noted, unchanged ABDOMEN: LIVER: There has been interval placement of another pigtail drainage catheter in the subcapsular fe ection over the right hepatic lobe and this has significantly decreased in size. Previously was 7 cm width and presently is 1 cm with. AP measurement of this collection is 9.7 cm. The pigtail drainag e catheter remains in good position within this collection and is not kinked. GALLBLADDER/BILIARY: The 2nd pigtail drainage catheter is in the gallbladder fossa in satisfactory po sition but the size of the fluid collection in the gallbladder fossa has increased, presently measuri ng 6 by 4 by 4.5 cm. Again noted is a self expanding-style stent in the CBD which is unchanged in po sition. Its inferior aspect is within the duodenum. This stent measures 3.6 cm length. CBD above t his level exhibits maximum diameter 8 millimeters. There is no prominent dilatation of intrahepatic ducts and the pancreatic duct is not dilated.. PANCREAS: No evidence of pancreatic mass nor dilatation of the pancreatic duct. SPLEEN: Spleen is not enlarged. No obvious intrasplenic lesions. Splenic and portal veins are paten t. There is no air-gas within the dural venous system. ADRENALS: There are no significant adrenal masses. KIDNEYS:No cysts evident. No solid renal masses. No calculi nor hydronephrosis.. ABDOMINAL AORTA: There is an hourglass shaped infrarenal abdominal aortic aneurysm again noted. Maxi mum external diameter is 3 cm. LYMPH NODES:There is no retroperitoneal nor paraaortic adenopathy. ABDOMINAL WALL: Again noted is a right inguinal hernia which is again noted to contain part of the ur inary bladder, this similar to previous. GI: No evidence of bowel obstruction. No free fluid in the dependent aspect of the pelvis. PELVIS: GI: Appendix is surgically absent.No evidence of sigmoid diverticulitis. LYMPH NODES: There is no intrapelvic nor inguinal adenopathy. REPRODUCTIVE: Prostate not enlarged. Seminal vesicles unremarkable. URINARY BLADDER: As above. Anterior right side of the urinary bladder is in the right inguinal canal . OSSEOUS: No significant osseous lesions. IMPRESSION: 1. Compared to the CT scan of 08/31/2021 there has been interval placement of a 2nd pigtail drainage catheter which has been draining the large elliptical subcapsular hepatic fluid collection. This has been reduced from previous diameter of 7 cm to approximately 1 cm at the present time. AP measureme nt is 9.7 cm. 2. The other pigtail drainage catheter which is in the gallbladder fossa remains in good position but the size of the fluid collection in the gallbladder fossa as increased. 3. The CBD stent remains in unchanged position and there is no gross dilatation of the biliary tree a wisam the level of the stent. Density of contents within the stent remains fluid Hounsfield units. 4. Right side of the urinary bladder is again noted to be in the right inguinal canal, unchanged from the previous study. No improvement in the appearance of the right lung base where there is volume loss and moderate size right pleural effusion again noted. Abdominal aortic aneurysm again noted. Maximum diameter 3 cm. RADIATION DOSE DELIVERED: 1,154.36mGy.cm Total DLP DATA REPOSITORY: All CT scans at this facility are submitted to the National Radiology Data Registry (NRDR) Dose Index Registry (DIR) with the [employer] (ACR). RADIATION OPTIMIZATION: All CT scans at this facility use at least one of these dose optimization te chniques: automated exposure control; mA and/or kV adjustment per patient size (includes targeted exa ms where dose is matched to clinical indication); or iterative reconstruction.
[2021-09-12] MEDS: Normal Saline - Diluent 50 ML VIAL IV (12:54)
[2021-09-12] MEDS: Omnipaque 350 MG/ML 100 ML BTL IJ (12:55)
[2021-09-12] MEDS: Normal Saline 250 ML IV (12:57)
[2021-09-12] MEDS: levoFLOXacin 750 MG/150 ML BAG 100 MG IVPB (12:58)
--- NOTE | 2021-09-12 13:15 | DI.RAD_ITS ---
Exam(s) XR PORTABLE CHEST AP EXAM: XR PORTABLE CHEST AP CLINICAL HISTORY: AMS. TECHNIQUE: 2D digital imaging was performed. COMPARISON: CR,XR XR CHEST 2V PA LATERAL from 06/07/[address] ABDOMEN PELVIS W from 09/12/2021 FINDINGS: Heart size is upper normal. The mediastinum is not widened. There is a right PICC line. Its distal tip is heading cephalad into the internal jugular vein beyond the field of view. This needs readjustment. Left lung is clear. There is pleural effusion on the right side and there is a pigtail drainage cath eter which is below the hemidiaphragm within the subcapsular liver collection. IMPRESSION: Right PICC line distal tip is in the jugular vein and requires readjustment. Atelectasis and pleural effusion in the right lung, as seen on the uppermost images of today's abdomi nal CT scan DATA REPOSITORY: RADIATION DOSE DELIVERED: All CT scans at this facility use at least one of these dose optimization techniques: automated exposure control; mA and/or kV adjustment per patient size (includes targeted e xams where dose is matched to clinical indication); or iterative reconstruction.
[2021-09-12 13:39] LABS: Bilirubin Negative (Negative); Blood Moderate (Negative); Clarity Clear (Clear); Glucose Negative (Negative); Ketones Negative (Negative); Leukocyte Esterase Negative (Negative); Nitrite Negative (Negative); Specific Gravity 1.015 (1.005-1.025); Urobilinogen 0.2 EU/dL (Up TO 0.2)
[2021-09-12 13:51] LABS: Epithelial Cells Negative HPF (Negative); RBC 20-50 HPF (0-2)
[2021-09-12 13:52] LABS: Bacteria Few HPF (Negative); C & S Indicated? Yes; Casts 0-2 Hyaline LPF (Negative); Crystals Negative HPF (Negative); Mucus Moderate (Negative); Other Cells Few Renal (Negative)
[2021-09-12] MEDS: metroNIDAZOLE 500 MG/100 ML BAG 100 MG IVPB (14:20)
[2021-09-12] MEDS: Lidocaine 2% Jelly 6 ML SYR (14:33)
--- NOTE | 2021-09-12 14:45 | RT.EKG_ITS ---
APPROVED REPORT Exam: Resting ECG Reason for Exam: [facility] Patient Location: E HR:89 bpm ECG Measurements Heart Rate 89 AXIS KS 200 P 36 QRSd 107 QRS -44 QT 395 T 18 QTc 482 Conclusion Sinus rhythm...normal P axis, V-rate 60- 99 Left axis deviation...QRS axis (-30,-90) Low voltage, extremity and precordial leads...extremity<0.5mV, precordial<1.0mV Sinus. No STEMI. I have reviewed and interpreted ECG and agree with software generated interpretation.
[2021-09-12 15:19] LABS: Troponin I < 0.05 ng/mL (<0.06)
[2021-09-12] MEDS: Heparin 500 UNITS/5 ML SYRINGE (15:40)
[2021-09-12] MEDS: Normal Saline 250 ML 100 ML IV (17:00)
[2021-09-12 18:23] LABS: COVID-19 PCR Negative (Negative)
== END 2021-09-12 17:10 | disposition short-term general hospital (02) ==
PROVIDERS: Emergency Provider Student in an Organized Health Care Education/Training Program; PCP Family Medicine
DX: R53.1 Weakness (principal); K75.0 Abscess of liver; I11.0 Hypertensive heart disease with heart failure; I50.9 Heart failure, unspecified; E03.9 Hypothyroidism, unspecified
CPT/HCPCS: 36415; 51702; 80053; 82805; 87040; 87635; 93005; 96365; 96367; 96368; 99285; 70450; 71045; 74177; 81003; 81015; 83605; 83735; 83880; 84443; 84484; 85025; 87086; 93010; J1956; J3490

== ENCOUNTER 2021-09-19 11:26 | Outpatient (RCR) | payer MEDICARE, OTHER, SELFPAY ==
[2021-09-19 00:13] VITALS: BP 121/75; PULSE 84; RESP 18; TEMP 36.5
[2021-09-19 15:53] LABS: Abs Immature Grans 0.09 10^3/uL (0.0-0.06); Absolute Basophil Count 0.06 10^3/uL (0.0-0.2); Absolute Eosinophil Count 0.34 10^3/uL (0.0-0.7); Absolute Lymphocyte Count 1.69 10^3/uL (1.2-3.4); Absolute Monocyte Count 1.13 10^3/uL (0.1-0.8); Absolute Neutrophil Count 8.01 10^3/uL (1.2-6.7); Basophils % 0.5; HCT 32.4 % (40.0-50.0); HGB 9.8 g/dL (13.5-17.5); Immature Grans % 0.8; Lymphocytes % 14.9; MCH 30.3 pg (27.0-33.0); MCHC 30.2 % (32.0-36.0); MCV 100.3 fL (80-95); MPV 10.3 fL (8.0-11.0); Neutrophils % 70.8; Nucleated RBC 0 %; Platelet Count 335 10^3/uL (130-400); RBC 3.23 10^6/uL (4.36-5.78); RDW 15.5 % (11.8-14.1); RDW-SD 53.5 fL; WBC 11.32 10^3/uL (4.4-10.8)
[2021-09-19 16:13] LABS: ALT 113 U/L (16-63); AST 50 U/L (15-37); Albumin 2.2 g/dL (3.4-5.0); Alkaline Phosphatase 246 U/L (46-116); Anion Gap 8.8 mmol/L (3-11); BUN 31 mg/dL (7-18); Bilirubin, Total 0.1 mg/dL (0.2-1.0); CO2 28.2 mmol/L (21.0-32.0); CREATININE 0.7 mg/dL (0.70-1.30); Calcium 8.5 mg/dL (8.5-10.1); Chloride 107 mmol/L (98-107); Creatine Kinase 9 U/L (39-308); Glucose 185 mg/dL (74-106); Potassium 3.5 mmol/L (3.5-5.1); Sodium 144 mmol/L (136-145); Total Protein 6.1 g/dL (6.4-8.2)
== END 2021-10-18 23:59 | disposition home or self-care (01) ==
LOC: INF 11:26
PROVIDERS: Surgery; PCP Family Medicine; Visit Provider Family Medicine
DX: T81.43XD Infection following a procedure, organ and space surgical site, subsequent encounter (principal); K83.2 Perforation of bile duct; R65.21 Severe sepsis with septic shock; Z79.2 Long term (current) use of antibiotics
CPT/HCPCS: 80053; 82550; 85025

== ENCOUNTER 2021-09-26 13:50 | Outpatient (REF) | payer MEDICARE, OTHER, SELFPAY ==
[2021-09-26 16:05] LABS: Abs Immature Grans 0.03 10^3/uL (0.0-0.06); Absolute Basophil Count 0.03 10^3/uL (0.0-0.2); Absolute Eosinophil Count 0.29 10^3/uL (0.0-0.7); Absolute Lymphocyte Count 1.42 10^3/uL (1.2-3.4); Absolute Monocyte Count 0.82 10^3/uL (0.1-0.8); Absolute Neutrophil Count 5.54 10^3/uL (1.2-6.7); Basophils % 0.4; Eosinophils % 3.6; Immature Grans % 0.4; Lymphocytes % 17.5; MPV 10.7 fL (8.0-11.0); Monocytes % 10.1; Nucleated RBC 0 %; RDW 17.7 % (11.8-14.1); RDW-SD 64.2 fL; WBC 8.13 10^3/uL (4.4-10.8)
[2021-09-26 16:22] LABS: Platelet Count 229 10^3/uL (130-400)
[2021-09-26 17:07] LABS: ALT 87 U/L (16-63); AST 30 U/L (15-37); Albumin 2.2 g/dL (3.4-5.0); Alkaline Phosphatase 153 U/L (46-116); Anion Gap 7.9 mmol/L (3-11); BUN 23 mg/dL (7-18); Bilirubin, Total 0.2 mg/dL (0.2-1.0); CO2 30.1 mmol/L (21.0-32.0); CREATININE 0.6 mg/dL (0.70-1.30); Calcium 8.5 mg/dL (8.5-10.1); Chloride 102 mmol/L (98-107); Glucose 126 mg/dL (74-106); Sodium 140 mmol/L (136-145); Total Protein 5.6 g/dL (6.4-8.2)
[2021-09-26 17:28] LABS: Creatine Kinase 13 U/L (39-308)
[2021-09-27 23:20] LABS: Folate 10.1 ng/mL (8.6-20.0); Vitamin B12 516 pg/mL (193-986)
[2021-09-27 23:27] LABS: Iron 20 ug/dL (65-175); Total Iron Binding Capacity 131 ug/dL (250-450); Transferrin Sat 15 % (20-55)
== END 2021-09-26 13:51 | disposition home or self-care (01) ==
LOC: LBN 13:50
PROVIDERS: PCP Family Medicine; Referring Provider Surgery; Visit Provider Family Medicine
DX: D64.9 Anemia, unspecified (principal); E53.8 Deficiency of other specified B group vitamins; K80.61 Calculus of gallbladder and bile duct with cholecystitis, unspecified, with obstruction; I71.00 Dissection of unspecified site of aorta; R11.2 Nausea with vomiting, unspecified; T81.43XD Infection following a procedure, organ and space surgical site, subsequent encounter
CPT/HCPCS: 80053; 82550; 82607; 82746; 83540; 83550; 85025

== ENCOUNTER 2021-10-02 15:44 | Emergency (ER) | payer MEDICARE, OTHER, SELFPAY ==
[2021-10-02] VITALS (43 sets, daily range): BP systolic 77–119; BP diastolic 49–73; PULSE 74–104; RESP 12–26; TEMP 37.1; O2SAT 99–100
--- NOTE | 2021-10-02 16:15 | DI.CT_ITS ---
Exam(s) CT THORAX ABD/PEL CTA EXAM: CT THORAX ABD/PEL CTA CLINICAL HISTORY: s/p aortic dissection in sept and cholecyst in Sep. TECHNIQUE: Imaging Protocol: Axial computed tomography images with coronal and sagittal reformatted images were created and reviewed CONTRAST MATERIAL: Intravenous: Omnipaque 350 Contrast volume:100 ml Oral: None COMPARISON: CT CT THORAX ABD/PEL CTA from 08/05/[address] THORAX ABD/PEL CTA from 08/05/[address] ABDOMEN PELVIS W from 09/12/2021 FINDINGS: CHEST: There is a moderate size right pleural effusion which is unchanged from 09/12/2021. There is volume loss in right lung basal segments again noted due to the pleural effusion. This pleural effusion cheema s not appear loculated.. There is a noncalcified 6 millimeter nodule in the right upper lobe which is unchanged from 08/05/2021. However, the right pleural effusion was not evident on the CT scan of . There is a subtle 8 x 6 millimeter subpleural nodular infiltrate in the lateral aspect of the left upper lobe (series 4/image 16) which is more evident than on the previous study. There is a lso small nodular infiltrate in the lingular segment of the left lung measuring 10 x 7 millimeters (s eries 4/image 44). There is no pleural effusion on the left side. MEDIASTINUM: No hilar adenopathy. Few small subcarinal lymph nodes are noted. No axillary adenopath y. Visualized thyroid unremarkable.Bilateral gynecomastia noted CARDIAC: Heart size is normal. Slight thickening of the anterior pericardium noted AORTA: Caliber of the ascending thoracic aorta is within normal limits.There is atherosclerotic invol vement of the ascending thoracic aorta and it is slightly prominent in diameter, averaging 27 millime ters. Some ulcerated plaque is seen in the descending thoracic aorta. In the abdomen there is again noted a hourglass shaped infrarenal abdominal aortic aneurysm. Maximum external diameter 3.1 cm. There is again noted a focal dissection within the distal abdominal aorta , not exhibiting significant increase in size no rupture or leak. The dissection ends just above the aortic bifurcation and does not extend into the iliac arteries. Both common iliac arteries are villasenor nt and nonaneurysmal as are the external iliac arteries. There is some mild atherosclerotic involvem ent of the iliac arteries but no tight stenosis. The internal iliac arteries are also noted to be pa tent. ABDOMEN: The celiac and superior mesenteric arteries are patent.Renal arteries are patent. Inferior mesenteric artery is patent. The pigtail drainage catheter which was previously present along the right hepatic lobe is been remov ed. The size of the collection at this level remains unchanged from 09/12/2021. The other drainage catheter is in the gallbladder fossa and the size of the previously present (09/12/2021) collection a t this level is significantly decreased. There is presently no collection at this level. However, t here is now a self expanding-type stent in the CBD which which is longer in length and the previously present stent and extends from the ghanshyam hepatis to the duodenal lumen. This is filled with the flu id. LIVER: There are no focal hepatic lesions nor dilatation of intrahepatic ducts. GALLBLADDER/BILIARY: The gallbladder surgically absent. CBD stent in place. PANCREAS: No evidence of pancreatic mass nor dilatation of the pancreatic duct. SPLEEN: Spleen is not enlarged. There are no intrasplenic lesions. ADRENALS: There is a tiny calcification in the lateral limb of the right adrenal gland measuring 2 mi llimeters. This appears to be within a small nodule at this level. Left adrenal gland is unremarkab le. KIDNEYS: No cysts evident. No calculi nor hydronephrosis. No solid renal masses. ABDOMINAL AORTA: As above LYMPH NODES: No para aortic adenopathy evident. ABDOMINAL WALL: No evidence of significant anterior abdominal wall hernia. GI: There is no evidence of bowel obstruction, nor free air. PELVIS: LYMPH NODES: There is no intrapelvic nor inguinal adenopathy. GI: Appendix is again noted be surgically absent.No evidence of sigmoid diverticulitis. URINARY BLADDER: The right-side of the urinary bladder is again noted be in the right inguinal canal, unchanged. Bladder is not distended. No leakage around the bladder evident. REPRODUCTIVE: Prostate not enlarged. Seminal vesicles unremarkable. OSSEOUS: No significant osseous lesions. IMPRESSION: 1. Bilateral focal pulmonary findings as described above and right pleural effusion moderate size not ed. Recommend follow-up CT scan in 3 months. 2. Stable appearance of the hourglass shaped abdominal aortic aneurysm and focal dissection which end s just above the bifurcation does not extend into the iliac arteries. 3. Single remaining pigtail drainage catheter in the gallbladder fossa and there is no collection melisa dent at this time. The CBD stent length has increased, as described above. There is probably been i nterval placement of an additional stent. Stent appears patent and there is no dilatation of intrahe patic ducts evident at this time. 4. Fluid collection around the right side of the liver appears stable. That pigtail drainage cathete r has been removed since the 09/12/2021 study. 5. Stable appearance of the right inguinal hernia which contains fat and part of the right-side of u rinary bladder, unchanged First read by [facility] RADIATION DOSE DELIVERED: 1,117.91mGy.cm Total DLP DATA REPOSITORY: All CT scans at this facility are submitted to the National Radiology Data Registry (NRDR) Dose Index Registry (DIR) with the [employer] (ACR). RADIATION OPTIMIZATION: All CT scans at this facility use at least one of these dose optimization te chniques: automated exposure control; mA and/or kV adjustment per patient size (includes targeted exa ms where dose is matched to clinical indication); or iterative reconstruction.
--- NOTE | 2021-10-02 16:15 | RT.EKG_ITS ---
APPROVED REPORT Exam: Resting ECG Reason for Exam: weakness Patient Location: E HR:78 bpm ECG Measurements Heart Rate 78 AXIS WI 200 P -37 QRSd 100 QRS -50 QT 404 T 6 QTc 462 Conclusion Sinus rhythm...normal P axis LAD, consider left anterior fascicular block Low voltage, extremity and precordial leads
--- NOTE | 2021-10-02 16:39 | ED.GENADUL_ITS ---
Discharge Plan Disposition Patient Disposition: HOME Condition: Stable Discharge Details Clinical Impression: Orthostatic hypotension, History of cholecystectomy Primary Care Provider: Deepa Oliva V ED Provider: Estefany Dupont Home Meds and New Rx's Prescriptions: Continued tamsulosin 0.4 MG capsule 0.8 mg PO DAILY RF: 0 aspirin [Aspir-Low] 81 MG tablet,delayed release (DR/EC) 81 mg PO DAILY AM RF: 0 furosemide [Lasix] 80 MG tablet 80 mg PO DAILY RF: 0 ascorbic acid (vitamin C) [Vitamin C With Dejah Hips] 1,000 MG tablet 1 tab PO DAILY RF: 0 saw palmetto 500 MG capsule 500 mg PO DAILY RF: 0 cefpodoxime 200 mg tablet 200 mg PO BID RF: 0 ferrous sulfate 324 mg (65 mg iron) Tablet,Delayed Release (Dr/Ec) 324 mg PO DAILY RF: 0 magnesium oxide 400 MG tablet 400 mg PO DAILY Qty: 30 RF: 0 fluoxetine [Prozac] 20 mg Capsule 20 mg PO DAILY RF: 0 levothyroxine [Synthroid] 50 mcg Tablet 25 mcg PO DAILY RF: 0 pantoprazole 20 mg Tablet,Delayed Release (Dr/Ec) 40 mg PO DAILY RF: 0 atorvastatin 40 mg Tablet 40 mg PO DAILY RF: 0 clopidogrel 75 mg Tablet 75 mg PO DAILY RF: 0 nitroglycerin [Nitrostat] 0.4 mg Tablet, Sublingual 0.4 mg SUBLINGUAL Q5-15M PRNRF: 0 polyethylene glycol 3350 17 gram powder in packet 17 g PO DAILY RF: 0 loratadine 10 mg Tablet 10 mg PO DAILY RF: 0 therapeutic multivitamin Tablet 1 tab PO DAILY RF: 0 cyanocobalamin (vitamin B-12) 1,000 mcg/mL Solution 1,000 mcg SUBCUT QWEEK RF: 0 carvedilol 12.5 mg tablet 12.5 mg PO BID RF: 0 fluconazole 200 mg tablet 200 mg PO DAILY RF: 0 ondansetron 4 mg tablet,disintegrating 4 mg PO PRNRF: 0 Saccharomyces boulardii [Florastor] 250 mg Capsule 250 mg PO BID RF: 0 Discontinued mirtazapine [Remeron] 15 mg tablet 15 mg PO .QHS PRNRF: 0 Discharge Instructions Additional Instructions: Try to eat 6 small meals a day Drink at least 8 glasses of water a day ###Discontinue your mirtazapine, do not take this medication tonight., Talk to your doctor tomorrow and have your blood pressure rechecked tomorrow Continue with your TPN prescribed Follow-up with your surgeon at your scheduled appointment this week Please tell your doctor that you have a small pleural effusion, this will need to be reassessed Please return should you have recurrent low blood pressure, weakness, dizziness, chest pain, shortness of breath, fever, chills, or with any new or worsening complaints Referrals: Deepa Oliva MD [Primary Care Provider] - Medical Decision Making Patient initially was pale and quite orthostatic, 70/30 and tachycardic when standing After 1 L of normal saline, patient is resting comfortably, he is no longer orthostatic on reassessment and states he feels symptomatically improved My initial plan was to admit the patient to the hospital, I suspect that he is having orthostatic hypotension from the initiation of mirtazapine, he will discontinue this medication Also encourage regular hydration and food supplementation He will need recheck of his blood pressure primary care physician tomorrow This is a complex patient with numerous comorbidities, he is high risk patient that ambulatory with steady gait with his walker His diagnostic labs are not changed from prior specimen and his repeat exam is reassuring He is discharged home in the care of his and daughter HEENT is aware that he will need reassessment in 24 hours none he is encouraged to follow-up with his primary care physician regarding hospitalization, he has not hypoxic on his baseline oxygen He is discharged home in stable condition with stable vital I discussed the CT results with Dr. Elvira Youssef, virtual radiologist and made no abdominal effusion, liver drain in place without obvious abscess formation, and stable aorta exam We will discontinue mirtazapine, Medical Records Medical records reviewed: Yes I reviewed the patient's medical records. Lab Data Lab results reviewed: Yes I reviewed the patient's lab results. HPI General Mode of arrival: ambulatory . Date/Time Provider Initiated Documentation: 10/02/21 15:58 . Limitations to Documentation: no limitations . Information obtained by: patient . HPI Narrative: This complex 76-year-old gentleman with history of AAA, cholecystectomy, diabetes, coronary artery disease, CHF presents with report of weakness and hypotension. This is predominantly with standing. Episode began today. Blood pressure was of low 60/40 at home. Of note, patient is status post AAA repair at the beginning of July followed by cholecystectomy for which patient developed a subsequent liver abscess and now has drain in place. Patient denies any fever or chills. He denies any chest pain or shortness of breath. He is taking Cefpodoxime, oral antibiotic while the drain is persistently in place. He was just recently started on mirtazapine, 3 days prior to arrival. This is in addition to his Lasix and carvedilol. At rest, patient feels slightly lightheaded but otherwise asymptomatic reportedly. He states that he did have a little bit more blood in his urine this morning but denies any significant change time. Urinating within normal limits, no cough or shortness of breath reportedly. Related Data Home Medications Medication Instructions Recorded Confirmed aspirin [Aspir-Low] 81 mg PO DAILY AM 09/01/13 10/02/21 tamsulosin 0.8 mg PO DAILY 09/01/13 10/02/21 furosemide [Lasix] 80 mg PO DAILY 11/11/13 10/02/21 ascorbic acid (vitamin C) [Vitamin 1 tab PO DAILY 01/21/15 10/02/21 C With Dejah Hips] saw palmetto 500 mg PO DAILY 01/21/15 10/02/21 magnesium oxide 400 mg PO DAILY #30 tab 03/28/17 10/02/21 atorvastatin 40 mg PO DAILY 05/13/21 10/02/21 clopidogrel 75 mg PO DAILY 05/13/21 10/02/21 fluoxetine [Prozac] 20 mg PO DAILY 05/13/21 10/02/21 levothyroxine [Synthroid] 25 mcg PO DAILY 05/13/21 10/02/21 nitroglycerin [Nitrostat] 0.4 mg SUBLINGUAL Q5-15M PRN 05/13/21 10/02/21 pantoprazole 40 mg PO DAILY 05/13/21 10/02/21 loratadine 10 mg PO DAILY 08/03/21 10/02/21 polyethylene glycol 3350 17 g PO DAILY 08/03/21 10/02/21 therapeutic multivitamin 1 tab PO DAILY 08/03/21 10/02/21 cyanocobalamin (vitamin B-12) 1,000 mcg SUBCUT QWEEK 08/05/21 10/02/21 Saccharomyces boulardii [Florastor] 250 mg PO BID 09/12/21 10/02/21 carvedilol 12.5 mg PO BID 09/12/21 10/02/21 fluconazole 200 mg PO DAILY 09/12/21 10/02/21 ondansetron 4 mg PO PRN 09/12/21 cefpodoxime 200 mg PO BID 10/02/21 10/02/21 ferrous sulfate 324 mg PO DAILY 10/02/21 10/02/21 Previous Rx's Medication Instructions Recorded magnesium oxide 400 mg PO DAILY #30 tab 03/28/17 Allergies Allergy/AdvReac Type Severity Reaction Status Date / Time Penicillins Allergy Severe Anaphylaxsi Unverified 10/02/21 16:05 s donepezil [From Aricept] Allergy Mild mild per Unverified 10/02/21 16:05 pcp chart adenosine Allergy Unverified 10/02/21 16:05 metformin [From Glucophage] Allergy per pcp Unverified 10/02/21 16:05 chart--moderate codeine AdvReac Intermediate Dizziness/L Unverified 10/02/21 16:05 ightheade General Stated Complaint: GenMedical DANIEL: 2 Review of Systems All systems reviewed & are unremarkable except as noted in HPI and below PFSH Medical History Apical mural thrombus Atrial fib/flutter, transient Mena's palsy BPH (benign prostatic hyperplasia) CAD (coronary artery disease) Cardiomyopathy CHF (congestive heart failure) COPD (chronic obstructive pulmonary disease) DM (diabetes mellitus) HTN (hypertension) Hypothyroidism Obesity (BMI 30.0-34.9) ORLIN (obstructive sleep apnea) Pulmonary hypertension Renal insufficiency Surgical History Appendectomy Colonoscopy - MAC (08/04/16) Hx of cardiac cath in [place] in the s - unknown intervention [facility] [place] 2013 - clean coronaries, severe pulmonary hypertension, no prior stent found Family History Mother Cervical cancer Other Colon cancer Social History Smoking/Tobacco Use Status: Former Tobacco Use Smoking risk assessment performed?: Yes Drug use: Never Substance use type: does not use Details: states he has increased his alcohol use recently due to the heat Do you feel safe at home: Yes Do you feel safe in your relationship?: Yes Exam Const General: cooperative, comfortable and no acute distress HENMT Head: normal to inspection Mouth: oral mucosae normal Eyes Pupils: PERRL Chest Chest: normal inspection of the chest Resp Effort & Inspection: normal respiratory effort Auscultation: clear to auscultation bilaterally Cardio Rate: regular rate Rhythm: regular rhythm GI Inspection: normal to inspection Other: Nontender abdominal exam, drain in place, scant bloody drainage noted, no palpable tenderness to inguinal region bilaterally, no pulsatile mass Skin General skin exam: no rashes or lesions noted Neuro General: patient alert and patient oriented x3 Extrem Other: Distal pulses intact Psych Appearance: grossly normal and well kempt Course Vital Signs Vital signs: Vital Signs Temperature 37.1 C 10/02/21 15:58 Pulse 78 10/02/21 15:58 Respiratory Rate 19 10/02/21 15:58 Blood Pressure 114/61 10/02/21 15:58 Pulse Oximetry 100 10/02/21 15:58 Temperature 37.1 C 10/02/21 15:58 Temperature Source Skin 10/02/21 15:58 Pulse 78 10/02/21 15:58 Respiratory Rate 19 10/02/21 15:58 Respiratory Effort Non-Labored 10/02/21 15:58 Blood Pressure 114/61 10/02/21 15:58 Blood Pressure Position Supine 10/02/21 15:58 Pulse Oximetry 100 10/02/21 15:58 Oxygen Delivery Method Nasal Cannula 10/02/21 15:58 Oxygen Flow Rate 0 10/02/21 15:58 Pain Level 4 10/02/21 15:58 Lab/Test Results Lab/Test Results: 10/02/21 16:18 Blood Blood Culture - Pending 10/02/21 16:18 Blood Blood Culture - Pending
[2021-10-02 17:47] LABS: Source Nasal/Nares
[2021-10-02 17:48] LABS: Lactate 1.7 mmol/L (0.6-1.4)
[2021-10-02 17:51] LABS: Abs Immature Grans 0.02 10^3/uL (0.0-0.06); Absolute Basophil Count 0.02 10^3/uL (0.0-0.2); Absolute Eosinophil Count 0.28 10^3/uL (0.0-0.7); Absolute Lymphocyte Count 1.81 10^3/uL (1.2-3.4); Absolute Monocyte Count 0.83 10^3/uL (0.1-0.8); Absolute Neutrophil Count 4.66 10^3/uL (1.2-6.7); Basophils % 0.3; Eosinophils % 3.7; HCT 35.4 % (40.0-50.0); HGB 10.9 g/dL (13.5-17.5); Immature Grans % 0.3; Lymphocytes % 23.8; MCH 30.8 pg (27.0-33.0); MCHC 30.8 % (32.0-36.0); Monocytes % 10.9; Nucleated RBC 0 %; Platelet Count 301 10^3/uL (130-400); RBC 3.54 10^6/uL (4.36-5.78); RDW 17.6 % (11.8-14.1); RDW-SD 65.2 fL; WBC 7.62 10^3/uL (4.4-10.8)
[2021-10-02 18:14] LABS: Calcium 9.3 mg/dL (8.5-10.1)
[2021-10-02 18:15] LABS: ALT 83 U/L (16-63); AST 32 U/L (15-37); Albumin 2.6 g/dL (3.4-5.0); Alkaline Phosphatase 154 U/L (46-116); Anion Gap 6.5 mmol/L (3-11); BUN 23 mg/dL (7-18); Bilirubin, Total 0.3 mg/dL (0.2-1.0); CO2 33.5 mmol/L (21.0-32.0); CREATININE 0.8 mg/dL (0.70-1.30); Chloride 103 mmol/L (98-107); Glucose 115 mg/dL (74-106); Lipase 157 U/L (73-393); Magnesium 2.1 mg/dL (1.8-2.4); Sodium 143 mmol/L (136-145); TSH 2.58 uIU/mL (0.36-3.74); Total Protein 7.2 g/dL (6.4-8.2)
[2021-10-02 18:16] LABS: Troponin I < 0.05 ng/mL (<0.06)
[2021-10-02 18:34] LABS: NT-proBNP 406 pg/mL (<300)
[2021-10-02 18:44] LABS: COVID-19 PCR Negative (Negative)
[2021-10-02] MEDS: Omnipaque 350 MG/ML 100 ML BTL IJ (18:51)
[2021-10-02] MEDS: Normal Saline Flush 10 ML SYR IVP (18:53)
[2021-10-02] MEDS: Normal Saline 1,000 ML 1000 ML IV (19:00)
[2021-10-02 19:39] LABS: Bilirubin Negative (Negative); Blood Trace (Negative); Clarity Clear (Clear); Glucose Negative (Negative); Ketones Negative (Negative); Leukocyte Esterase Negative (Negative); Nitrite Negative (Negative); Urobilinogen 0.2 EU/dL (Up TO 0.2)
[2021-10-02 19:59] LABS: Bacteria Negative HPF (Negative); C & S Indicated? No; Casts 10-20 Hyaline LPF (Negative); Crystals Negative HPF (Negative); Epithelial Cells Negative HPF (Negative); Mucus Moderate (Negative); RBC 0-2 HPF (0-2); WBC Negative HPF (0-5)
--- NOTE | 2021-10-02 20:01 | DI.VRAD_ITS ---
PROCEDURE INFORMATION: Exam: CTA Chest With Contrast Exam date and time: 10/02/2021 4:25 PM Age: 76 years old Clinical indication: Other: Hypotensive; Other: HX of aaa in sept; Prior surgery; Surgery date: 1-6 months; Surgery type: Cholecystectomy and hepatic cyst in sept, HX of appendectomy; Patient HX: HX of aaa, increased blood in drain TECHNIQUE: Imaging protocol: Computed tomographic angiography of the chest with contrast. 3D rendering (Not supervised by radiologist): MIP and/or 3D reconstructed images were created by the technologist. Radiation optimization: All CT scans at this facility use at least one of these dose optimization techniques: automated exposure control; mA and/or kV adjustment per patient size (includes targeted exams where dose is matched to clinical indication); or iterative reconstruction. Contrast material: OMNIPAQUE 350; Contrast volume: 100 ml; Contrast route: INTRAVENOUS (IV); COMPARISON: CT THORAX ABD/PEL CTA 08/05/2021 8:59 PM FINDINGS: Pulmonary arteries: Pulmonary arteries are adequately opacified to the subsegmental level. No pulmonary emboli within the main, segmental or subsegmental pulmonary arteries. Aorta: Normal caliber thoracic aorta with calcified atherosclerosis. Lungs: A 0.6 cm ground-glass nodule in the right upper lobe (6-256) is unchanged dating to the oldest available prior study. July 2021. Very mild right basilar compressive atelectasis. Few unchanged pulmonary micronodules. Pleural spaces: New small to moderate sized right pleural effusion. Heart: Unremarkable. No cardiomegaly. No pericardial effusion. Lymph nodes: Unremarkable. No enlarged lymph nodes. Bones/joints: Unremarkable. No acute fracture. Soft tissues: Unremarkable. IMPRESSION: 1. No pulmonary emboli within the main, segmental or subsegmental pulmonary arteries. 2. New small to moderate sized right pleural effusion, of uncertain etiology. 3. A 0.6 cm ground-glass nodule in the right upper lobe, unchanged dating to July 2021. Older a scans are not available for direct comparison. Recommend CT Chest at 6-12 months to confirm persistence of the nodule, then CT Chest at 3 years and 5 years. (Reference: Kai) REFERENCES: Kai Reinoso et al. Guidelines for Management of Incidental Pulmonary Nodules Detected on CT Images: From the Fleischner Society 2017. Radiology. 2017;284(1):228-243. PROCEDURE INFORMATION: Exam: CTA Abdomen and Pelvis With Contrast Exam date and time: 10/02/2021 4:25 PM Age: 76 years old Clinical indication: Other: Hypotensive; Other: HX of aaa in sept; Prior surgery; Surgery date: 1-6 months; Surgery type: Cholecystectomy and hepatic cyst in sept, HX of appendectomy; Patient HX: HX of aaa, increased blood in drain TECHNIQUE: Imaging protocol: Computed tomographic angiography of the abdomen and pelvis with contrast material. 3D rendering (Not supervised by radiologist): MIP and/or 3D reconstructed images were created by the technologist. Contrast material: OMNIPAQUE 350; Contrast volume: 100 ml; Contrast route: INTRAVENOUS (IV); COMPARISON: CT THORAX ABD/PEL CTA 08/05/2021 8:59 PM FINDINGS: Limitations: Assessment of solid organs is limited by arterial phase timing of contrast bolus. Tubes, catheters and devices: Interval placement of cholecystostomy tube coiled in expected region of gallbladder fossa. No loculated or drainable collection. Adjacent inflammatory stranding, likely expected postprocedural change. Aorta: Ectatic abdominal aorta and proximal common iliac arteries with calcified atherosclerosis; unchanged focal dissection within distal abdominal aorta, no evidence for aortic rupture or leak. Celiac trunk and mesenteric arteries: No occlusion or significant stenosis. Renal arteries: No occlusion or significant stenosis. Right iliac arteries: No occlusion or significant stenosis. Left iliac arteries: No occlusion or significant stenosis. Liver: Hepatic steatosis. Heterogeneous attenuation in the pericholecystic region, likely perfusion changes related to cholecystostomy tube and gallbladder inflammation. Gallbladder and bile ducts: Debris and air-containing CBD stent in satisfactory position. No intrahepatic bile duct dilatation. Mild pneumatosis, consistent with expected post intervention change. Pancreas: Unremarkable. No mass. No ductal dilation. Spleen: Unremarkable. No splenomegaly. Adrenal glands: Unremarkable. No mass. Kidneys and ureters: Unremarkable. No solid mass. No hydronephrosis. Stomach and bowel: The stomach is decompressed, limiting evaluation. No evidence of bowel obstruction. No pericolonic inflammatory stranding. Diverticulosis without diverticulitis. Appendix: No evidence of appendicitis. Intraperitoneal space: No free fluid or free air. Inflammatory stranding in the pericholecystic region, extending to the undersurface of the liver and tracking along the right lateral conal fascia to the pelvic brim. No loculated fluid or drainable collection. Lymph nodes: Unremarkable. No enlarged lymph nodes. Urinary bladder: Fat and urinary bladder containing right inguinal hernia with edema and stranding, similar to prior. Reproductive: Unremarkable as visualized. Bones/joints: Degenerative change of the spine. Soft tissues: Fat containing left inguinal hernia. IMPRESSION: 1. Interval placement of cholecystostomy tube coiled in expected region of gallbladder fossa. No loculated or drainable collection. Adjacent inflammatory stranding, likely expected postprocedural change. No loculated fluid or drainable collection. 2. Debris and air-containing CBD stent in satisfactory position. 3. Ectatic abdominal aorta and proximal common iliac arteries with calcified atherosclerosis; unchanged focal dissection within distal abdominal aorta, no evidence for aortic rupture or leak. 4. Fat and urinary bladder containing right inguinal hernia with edema and stranding, similar to prior. Please correlate for tenderness. Comments: The findings were verbally communicated via telephone conference at 8:00 PM EST on 10/02/2021 with Estefany Dupont. The findings were acknowledged and understood. Dictated and Authenticated by: Elvira Silva MD. Ordering:ZARA Allison MD
[2021-10-02] MEDS: Heparin 500 UNITS/5 ML SYRINGE (21:37)
--- NOTE | 2021-10-05 07:38 | NUR.NOTE ---
Nursing Note: Lab called stating that there was an order for a set of blood cultures, second set, that was not collected. Per Dr. Membreno, the order can be cancelled. Disha Valdez
== END 2021-10-02 21:34 | disposition home or self-care (01) ==
PROVIDERS: Emergency Provider Physician Assistant; PCP Family Medicine
DX: I95.1 Orthostatic hypotension (principal); Z90.49 Acquired absence of other specified parts of digestive tract; E03.9 Hypothyroidism, unspecified; I50.9 Heart failure, unspecified; R53.1 Weakness
CPT/HCPCS: 36415; 71275; 74177; 80053; 83690; 87040; 87635; 93005; 96360; 99285; 81003; 81015; 83605; 83735; 83880; 84443; 84484; 85025; 93010; 99284; J3490

== ENCOUNTER 2021-10-03 15:23 | Outpatient (REF) | payer MEDICARE, OTHER, SELFPAY ==
[2021-10-03 12:01] LABS: Abs Immature Grans 0.03 10^3/uL (0.0-0.06); Absolute Basophil Count 0.03 10^3/uL (0.0-0.2); Absolute Eosinophil Count 0.34 10^3/uL (0.0-0.7); Absolute Lymphocyte Count 1.65 10^3/uL (1.2-3.4); Absolute Monocyte Count 0.91 10^3/uL (0.1-0.8); Basophils % 0.4; Eosinophils % 4.3; HCT 31.5 % (40.0-50.0); HGB 9.9 g/dL (13.5-17.5); Immature Grans % 0.4; MCH 31.5 pg (27.0-33.0); MCHC 31.4 % (32.0-36.0); MCV 100.3 fL (80-95); MPV 10.9 fL (8.0-11.0); Monocytes % 11.6; Neutrophils % 62.3; Nucleated RBC 0 %; Platelet Count 247 10^3/uL (130-400); RBC 3.14 10^6/uL (4.36-5.78); RDW 17.6 % (11.8-14.1); RDW-SD 64.9 fL; WBC 7.86 10^3/uL (4.4-10.8)
[2021-10-03 14:37] LABS: ALT 73 U/L (16-63); AST 28 U/L (15-37); Albumin 2.4 g/dL (3.4-5.0); Alkaline Phosphatase 133 U/L (46-116); Anion Gap 8.8 mmol/L (3-11); BUN 27 mg/dL (7-18); Bilirubin, Total 0.1 mg/dL (0.2-1.0); CO2 27.2 mmol/L (21.0-32.0); CREATININE 0.6 mg/dL (0.70-1.30); Calcium 8.4 mg/dL (8.5-10.1); Chloride 107 mmol/L (98-107); Glucose 118 mg/dL (74-106); Magnesium 2.2 mg/dL (1.8-2.4); Potassium 4.6 mmol/L (3.5-5.1); Sodium 143 mmol/L (136-145); Total Protein 5.7 g/dL (6.4-8.2); Triglyceride 107 mg/dL (<150)
[2021-10-03 14:52] LABS: C-Reactive Protein 1.38 mg/dL (0.0-0.3); Creatine Kinase 8 U/L (39-308)
[2021-10-04 09:49] LABS: Prealbumin 18 mg/dL (20-40)
== END 2021-10-03 15:24 | disposition home or self-care (01) ==
LOC: NCHCN 15:23
PROVIDERS: PCP Family Medicine; Visit Provider Family Medicine
DX: T81.43XD Infection following a procedure, organ and space surgical site, subsequent encounter (principal)
CPT/HCPCS: 80053; 82550; 83735; 84100; 84134; 84478; 85025; 86140

== ENCOUNTER 2021-10-13 13:13 | Emergency (ER) | payer MEDICARE, OTHER, SELFPAY ==
[2021-10-13 13:26] VITALS: BP 111/76; PULSE 86; RESP 18; TEMP 36.7; O2SAT 98
--- NOTE | 2021-10-13 13:45 | DI.RAD_ITS ---
Exam(s) XR RIBS RT W PA LAT CHEST EXAM: XR RIBS RT W PA LAT CHEST CLINICAL HISTORY: fall yesterday/pain TECHNIQUE: 2D digital imaging was performed. COMPARISON: CR XR PORTABLE CHEST AP from 09/12/2021 FINDINGS: The heart size is normal. The aorta is tortuous. A PICC line is noted on the right. There is mild blunting at the right costophrenic angle. No infiltrate, effusion or pneumothorax is seen. No spine or rib fracture is identified. Degenerative changes are noted in the right shoulder and spine. A r ight upper quadrant drainage catheter and biliary stent are seen. IMPRESSION: Mild blunting at the right costophrenic angle. No visible rib fracture or pneumothorax.
--- NOTE | 2021-10-13 14:51 | W.ED.GENAD ---
Discharge Plan Disposition Patient Disposition: HOME Condition: Improving Discharge Details Clinical Impression: Contusion of rib Primary Care Provider: Deepa Oliva V ED Provider: Terrance Avelar Home Meds and New Rx's Prescriptions: Continued tamsulosin 0.4 MG capsule 0.8 mg PO DAILY RF: 0 aspirin [Aspir-Low] 81 MG tablet,delayed release (DR/EC) 81 mg PO DAILY AM RF: 0 furosemide [Lasix] 80 MG tablet 80 mg PO DAILY RF: 0 ascorbic acid (vitamin C) [Vitamin C With Dejah Hips] 1,000 MG tablet 1 tab PO DAILY RF: 0 saw palmetto 500 MG capsule 500 mg PO DAILY RF: 0 cefpodoxime 200 mg tablet 200 mg PO BID RF: 0 ferrous sulfate 324 mg (65 mg iron) Tablet,Delayed Release (Dr/Ec) 324 mg PO DAILY RF: 0 magnesium oxide 400 MG tablet 400 mg PO DAILY Qty: 30 RF: 0 fluoxetine [Prozac] 20 mg Capsule 20 mg PO DAILY RF: 0 levothyroxine [Synthroid] 50 mcg Tablet 25 mcg PO DAILY RF: 0 pantoprazole 20 mg Tablet,Delayed Release (Dr/Ec) 40 mg PO DAILY RF: 0 atorvastatin 40 mg Tablet 40 mg PO DAILY RF: 0 clopidogrel 75 mg Tablet 75 mg PO DAILY RF: 0 nitroglycerin [Nitrostat] 0.4 mg Tablet, Sublingual 0.4 mg SUBLINGUAL Q5-15M PRNRF: 0 polyethylene glycol 3350 17 gram powder in packet 17 g PO DAILY RF: 0 loratadine 10 mg Tablet 10 mg PO DAILY RF: 0 therapeutic multivitamin Tablet 1 tab PO DAILY RF: 0 cyanocobalamin (vitamin B-12) 1,000 mcg/mL Solution 1,000 mcg SUBCUT QWEEK RF: 0 carvedilol 12.5 mg tablet 12.5 mg PO BID RF: 0 fluconazole 200 mg tablet 200 mg PO DAILY RF: 0 ondansetron 4 mg tablet,disintegrating 4 mg PO PRNRF: 0 Saccharomyces boulardii [Florastor] 250 mg Capsule 250 mg PO BID RF: 0 Discharge Instructions Instructions: Rib Contusion (ED) Additional Instructions: I thought that I may see a subtle rib fracture but x-ray was read by radiology as unremarkable. Hopefully this is simply a rib contusion. You responded nicely to the rib block. Incentives spirometer as directed. You are already prescribed Percocet for discomfort, take as directed. Cool compresses every 2 hours for 20 minutes. Please watch for new or worsening symptoms and return to the ER for any concerns. Otherwise follow-up with your primary care provider on Sunday. Discharge Data Discharge Date/Time-TO BE ENTERED AT DEPARTURE: 10/13/21 16:09 Medical Decision Making This is a 76-year-old gentleman, does take Plavix daily, has a right upper quadrant drain in place, presenting for right-sided chest wall pain status post mechanical fall yesterday. Patient denies any headache, LOC, visual change, neck pain, nausea, vomiting, numbness, tingling, weakness, etc. There is no overt signs of trauma on his physical examination. Right drain appears intact and unaffected by the fall. Plan is to obtain right-sided rib films and chest x-ray. Will provide a Lidoderm patch. Patient reports some relief with the Lidoderm patch. X-ray does not reveal any obvious signs of fracture. Patient continues to have right-sided chest wall pain particularly across rib 9. I do question if there could be a mild nondisplaced fracture that is simply not visible on the x-ray. I have requested that our anesthesia team be consulted for potential rib block. Rib block was performed, please see the procedural note. Upon reevaluation patient reports that this rib block has taken away all of his discomfort. He is currently asymptomatic. Denies any chest pain, shortness of breath, abdominal pain, nausea or vomiting. He is already prescribed Percocet that he can take as needed for his discomfort. I will provide him with incentive spirometer and teaching. He can also use [id number] Lidoderm patches for additional breakthrough pain. Patient and family have no additional questions or concerns and are comfortable with this plan strict discharge and return precautions provided. Fall occurred yesterday. Denies any obvious head or abdominal trauma. He appears well, nontoxic and neurologically intact. I do not believe any emergent advanced imaging of the head or abdomen is indicated at this time. This documentation was generated using [employer] system, please disregard any oddities of phrase or misspellings. Medical Records Medical records reviewed: Yes I reviewed the patient's medical records. Imaging Data Radiologic Study: Attestation: I personally reviewed and interpreted this imaging study as follows: Imaging: X-Ray Radiologist's impression: PROCEDURE INFORMATION: Exam: XR Right Ribs Exam date and time: 10/13/2021 1:53 PM Age: 76 years old Clinical indication: Other: Fall yesterday/pain; Prior surgery TECHNIQUE: Imaging protocol: XR Right ribs. Views: 2 views. COMPARISON: CR XR PORTABLE CHEST AP 09/12/2021 3:35 PM FINDINGS: Bones/joints: No definite rib fracture identified Soft tissues: Normal. IMPRESSION: No acute findings. PROCEDURE INFORMATION: Exam: XR Chest Exam date and time: 10/13/2021 1:53 PM Age: 76 years old Clinical indication: Other: Fall yesterday/pain; Prior surgery TECHNIQUE: Imaging protocol: XR of the chest. Views: 2 views. ALBERT FAN Preliminary Radiology Report ISOBUTYLENE OPERATOR CHIEF (QA) DISCREPANCY? If there is a discrepancy between the preliminary and final interpretation, please notify [employer] via [email or web address]. If you do not have access to our QA portal, call our QA team at [phone] CONFIDENTIALITY STATEMENT This report is intended only for the use of the referring physician, and only in accordance with law, If you received this in error, call [phone] Page 2 of 2 COMPARISON: CR XR PORTABLE CHEST AP 09/12/2021 3:35 PM FINDINGS: Tubes, catheters and devices: Pigtail catheter in the right upper quadrant of the abdomen. A right peripherally inserted central venous catheter lies with its tip in the superior vena cava. Lungs: Unremarkable. No consolidation. Pleural spaces: Unremarkable. No pleural effusion. No pneumothorax. Heart/Mediastinum: Unremarkable. No cardiomegaly. Vasculature: Stent in the right upper quadrant Bones/joints: Unremarkable. IMPRESSION: No acute process HPI General Mode of arrival: ambulatory. Date/Time Provider Initiated Documentation: 10/13/21 13:52. Limitations to Documentation: no limitations. Information obtained by: patient and family. HPI Narrative: 76-year-old gentleman, past medical history that includes transient A. fib-flutter, CAD, cardiomyopathy, CHF, COPD, diabetes, hypertension, obesity, sleep apnea, presenting to the ER today for evaluation of right-sided chest wall pain, concerned of the potential broken rib after a mechanical fall yesterday. Patient reports that the pain is moderate, took a Percocet that he is prescribed and this did help some. He does take Plavix daily. Patient denies any other injury from the fall. He denies head injury, headache, LOC, visual changes, neck pain, chest pain, shortness of breath, abdominal pain, nausea, vomiting, bowel or bladder incontinence or retention, pain or swelling in his extremities. Patient states that the pain at rest is currently mild but with movement, direct palpation, or taking a deep breath the pain is much worse. Related Data Home Medications Medication Instructions Recorded Confirmed aspirin [Aspir-Low] 81 mg PO DAILY AM 09/01/13 10/13/21 tamsulosin 0.8 mg PO DAILY 09/01/13 10/13/21 furosemide [Lasix] 80 mg PO DAILY 11/11/13 10/13/21 ascorbic acid (vitamin C) [Vitamin 1 tab PO DAILY 01/21/15 10/13/21 C With Dejah Hips] saw palmetto 500 mg PO DAILY 01/21/15 10/13/21 magnesium oxide 400 mg PO DAILY #30 tab 03/28/17 10/13/21 atorvastatin 40 mg PO DAILY 05/13/21 10/13/21 clopidogrel 75 mg PO DAILY 05/13/21 10/13/21 fluoxetine [Prozac] 20 mg PO DAILY 05/13/21 10/13/21 levothyroxine [Synthroid] 25 mcg PO DAILY 05/13/21 10/13/21 nitroglycerin [Nitrostat] 0.4 mg SUBLINGUAL Q5-15M PRN 05/13/21 10/13/21 pantoprazole 40 mg PO DAILY 05/13/21 10/13/21 loratadine 10 mg PO DAILY 08/03/21 10/13/21 polyethylene glycol 3350 17 g PO DAILY 08/03/21 10/13/21 therapeutic multivitamin 1 tab PO DAILY 08/03/21 10/13/21 cyanocobalamin (vitamin B-12) 1,000 mcg SUBCUT QWEEK 08/05/21 10/13/21 Saccharomyces boulardii [Florastor] 250 mg PO BID 09/12/21 10/02/21 carvedilol 12.5 mg PO BID 09/12/21 10/13/21 fluconazole 200 mg PO DAILY 09/12/21 10/13/21 ondansetron 4 mg PO PRN 09/12/21 cefpodoxime 200 mg PO BID 10/02/21 10/13/21 ferrous sulfate 324 mg PO DAILY 10/02/21 10/13/21 Previous Rx's Medication Instructions Recorded magnesium oxide 400 mg PO DAILY #30 tab 03/28/17 Allergies Allergy/AdvReac Type Severity Reaction Status Date / Time Penicillins Allergy Severe Anaphylaxsi Unverified 10/13/21 13:29 s donepezil [From Aricept] Allergy Mild mild per Unverified 10/13/21 13:29 pcp chart adenosine Allergy Unverified 10/13/21 13:29 metformin [From Glucophage] Allergy per pcp Unverified 10/13/21 13:29 chart--moderate codeine AdvReac Intermediate Dizziness/L Unverified 10/13/21 13:29 ightheade General Stated Complaint: Chest/Rib DANIEL: 3 Review of Systems Constitutional Constitutional: Denies fever(s) and Denies headache(s) Eyes Eyes: Denies change in vision ENT Ears, Nose, Mouth, and Throat: Denies headache(s) and Denies neck pain Cardiovascular Cardiovascular: Reports chest pain (Right sided chest wall) and Denies dyspnea Respiratory Respiratory: Denies cough and Denies dyspnea Gastrointestinal Gastrointestinal: Denies abdominal pain, Denies nausea and Denies vomiting Musculoskeletal Musculoskeletal: Denies back pain, Denies deformity, Denies neck pain, Denies numbness, Denies stiffness and Denies tingling Integumentary/Breasts Skin/Breast: Denies erythema Neurologic Neurologic: Denies headache(s), Denies numbness and Denies tingling [facility] Active Problem List Chest pain (Acute) Abdominal aortic aneurysm dissection (Acute) Left-sided chest pain (Acute) Abdominal pain (Acute) Acute cholecystitis (Acute) Sepsis (Acute) Weakness (Acute) Hepatic abscess (Acute) Orthostatic hypotension (Acute) History of cholecystectomy (Chronic) Contusion of rib (Acute) Discharge planning issues (Acute) DVT prophylaxis (Acute) BPH (benign prostatic hyperplasia) (Chronic) Pulmonary hypertension (Acute) COPD (chronic obstructive pulmonary disease) (Chronic) Hypertension (Chronic) Hyperlipidemia (Chronic) Diabetes (Chronic) Allergy to codeine (Chronic) Allergy to penicillin (Chronic) CAD (coronary artery disease) (Chronic) CHF (congestive heart failure) (Chronic 10/21/13) Medical History Apical mural thrombus Atrial fib/flutter, transient Mena's palsy CAD (coronary artery disease) Cardiomyopathy CHF (congestive heart failure) COPD (chronic obstructive pulmonary disease) DM (diabetes mellitus) HTN (hypertension) Hypothyroidism Obesity (BMI 30.0-34.9) ORLIN (obstructive sleep apnea) Renal insufficiency Surgical History Appendectomy Colonoscopy - MAC (08/04/16) [place] in [place] in the - [place] [facility] [place] clean coron[place], severe pulmonary hypertension, no prior stent found Family History Mother Cervical cancer Other Colon cancer Social History Smoking/Tobacco Use Status: Former Tobacco Use Smoking risk assessment performed?: Yes Drug use: Never Substance use type: does not use Details: states he has increased his alcohol use recently due to the heat Do you feel safe at home: Yes Do you feel safe in your relationship?: Yes Exam Const General: cooperative, healthy appearing, comfortable and no acute distress Orientation: alert, awake and oriented x3 [facility] Head: normocephalic Head images: 1. Abrasion. I am told that this is not from the fall yesterday but rather from her fall earlier in the week. Mouth: moist mucous membranes Eyes General: appearance normal, both eyes and all related structures Alignment and Position: alignment normal Periorbital: periorbital findings normal Eyelids: eyelids normal Conjunctivae: conjunctivae normal Sclera: sclerae normal Cornea: corneas normal Pupils: PERRL EOM: EOM intact bilaterally Direct ophthalmoscopy: normal light reflex Neck Neck: normal visual inspection, full ROM, trachea midline, supple and nontender Chest Chest: normal inspection of the chest, no crepitus and tenderness Other: There is diffuse right sided inferior anterior and lateral chest wall discomfort, increased over ribs 9. Skin is intact. There is no warmth, erythema, ecchymosis or crepitus. Resp Effort & Inspection: normal respiratory effort and able to speak in complete sentences Auscultation: clear to auscultation bilaterally Cardio Rate: regular rate Rhythm: regular rhythm GI Palpation: soft, not firm, no guarding, no pulsatile masses and nontender Auscultation: normal bowel sounds Other: Patient does have a drain in the right upper quadrant. Sutures are still intact. There is no discomfort to palpation. Skin surrounding the catheter drain appears well healing, no erythema, warmth, drainage. Abdomen otherwise unremarkable. Back/Spine/Pelvis Back: no CVA tenderness and No back tenderness Skin General skin exam: no rashes or lesions noted Neuro General: patient alert, patient awake, patient oriented x3, moves all extremities and no focal motor deficits Cognition: normal cognition Speech: speech normal Gait: normal gait Motor: muscle tone normal throughout Sensory Exam: no sensory deficits noted Extrem General: full ROM and capillary refill normal Psych Appearance: grossly normal Mental Status: mental status grossly normal Course Vital Signs Vital signs: Vital Signs Temperature 36.7 C 10/13/21 13:26 Pulse 86 10/13/21 13:26 Respiratory Rate 18 10/13/21 13:26 Blood Pressure 111/76 10/13/21 13:26 Pulse Oximetry 98 10/13/21 13:26 Temperature 36.7 C 10/13/21 13:26 Temperature Source Temporal Artery Scan 10/13/21 13:26 Pulse 86 10/13/21 13:26 Respiratory Rate 18 10/13/21 13:26 Respiratory Effort Non-Labored 10/13/21 13:32 Blood Pressure 111/76 10/13/21 13:26 Blood Pressure Position Sitting 10/13/21 13:26 Pulse Oximetry 98 10/13/21 13:26 Oxygen Delivery Method Room Air 10/13/21 13:26 Oxygen Flow Rate 0 10/13/21 13:26
[2021-10-13] MEDS: Lidocaine 5% Patch 1 PATCH TP (15:41)
--- NOTE | 2021-10-13 15:43 | W.ANESNERVE ---
Nerve Block Single Injection Procedure Date and Time Date Performed: 10/13/21 Procedure Start: 15:25 Location Where Procedure Performed Procedure Location: Emergency Department Reason Performed: Acute Pain Management Pain Diagnosis: Chest Pain and Rib Pain Requesting Provider: Terrance Avelar Timeout Performed Timeout Performed: Yes Monitoring Used ECG, Blood Pressure, SpO2 and See EMR for corresponding vital signs Sterility Sterility: Hand Hygiene, Surgical Cap, Surgical Mask, Sterile Gloves and Chlorhexidine Sedation Given During Procedure Sedation Given (Indicate Dose Given): No Sedation given Patient Mental Status Patient Mental Status: Awake Nerve Block 1st Nerve Block: Laterality: Right Block Type: Erector Spinae (Lower) Needle / Catheter Used: 100mm SonoPlex II Local Anesthetic Bolus (Indicate Dose Given): Lidocaine used for local infiltration of skin, Injected in 3-5ml increments after negative blood aspiration, Bupivacaine 0.25% Dose:: 15 ml and Exparel Dose:: 10ml Additives (Indicate Dose Given): None Ultrasound: Sterile probe cover and gel used Ultrasound Image Saved?: Yes Nerve Stimulator: Not Used Paresthesia: None Post Procedure Pain score (0-10): 0 Procedure Tolerated: No Complications and Patient tolerated well Procedure Outcome: Successful Procedure Comment: When procedure complete, patient able to lift arm, take deep breath and walk without discomfort. Performed By: Stuart Polo
--- NOTE | 2021-10-13 15:45 | DI.VRAD_ITS ---
PROCEDURE INFORMATION: Exam: XR Right Ribs Exam date and time: 10/13/2021 1:53 PM Age: 76 years old Clinical indication: Other: Fall yesterday/pain; Prior surgery TECHNIQUE: Imaging protocol: XR Right ribs. Views: 2 views. COMPARISON: CR XR PORTABLE CHEST AP 09/12/2021 3:35 PM FINDINGS: Bones/joints: No definite rib fracture identified Soft tissues: Normal. IMPRESSION: No acute findings. PROCEDURE INFORMATION: Exam: XR Chest Exam date and time: 10/13/2021 1:53 PM Age: 76 years old Clinical indication: Other: Fall yesterday/pain; Prior surgery TECHNIQUE: Imaging protocol: XR of the chest. Views: 2 views. COMPARISON: CR XR PORTABLE CHEST AP 09/12/2021 3:35 PM FINDINGS: Tubes, catheters and devices: Pigtail catheter in the right upper quadrant of the abdomen. A right peripherally inserted central venous catheter lies with its tip in the superior vena cava. Lungs: Unremarkable. No consolidation. Pleural spaces: Unremarkable. No pleural effusion. No pneumothorax. Heart/Mediastinum: Unremarkable. No cardiomegaly. Vasculature: Stent in the right upper quadrant Bones/joints: Unremarkable. IMPRESSION: No acute process Dictated and Authenticated by: Xavi Draper MD. Ordering:GERARD Carlos MD
[2021-10-13 16:09] VITALS: BP 125/65; PULSE 80; RESP 13; TEMP 36.5; O2SAT 96
== END 2021-10-13 16:09 | disposition home or self-care (01) ==
PROVIDERS: Emergency Provider Physician Assistant; PCP Family Medicine
DX: S20.211A Contusion of right front wall of thorax, initial encounter (principal); W18.39XA Other fall on same level, initial encounter
CPT/HCPCS: 99283; 71046; 71100

== ENCOUNTER 2021-10-17 12:44 | Outpatient (REF) | payer MEDICARE, OTHER, SELFPAY ==
[2021-10-17 13:25] LABS: Magnesium 2.1 mg/dL (1.8-2.4); Triglyceride 72 mg/dL (<150)
[2021-10-17 13:36] LABS: PHOSPHORUS 4.4 mg/dL (2.6-4.7)
[2021-10-17 14:29] LABS: ALT 38 U/L (16-63); AST 16 U/L (15-37); Albumin 2.7 g/dL (3.4-5.0); Alkaline Phosphatase 92 U/L (46-116); Anion Gap 8.1 mmol/L (3-11); BUN 24 mg/dL (7-18); Bilirubin, Total 0.2 mg/dL (0.2-1.0); CO2 25.9 mmol/L (21.0-32.0); CREATININE 0.5 mg/dL (0.70-1.30); Calcium 8.6 mg/dL (8.5-10.1); Chloride 105 mmol/L (98-107); Glucose 106 mg/dL (74-106); Potassium 4.5 mmol/L (3.5-5.1); Sodium 139 mmol/L (136-145); Total Protein 5.8 g/dL (6.4-8.2)
== END 2021-10-17 12:45 | disposition home or self-care (01) ==
LOC: LBN 12:44
PROVIDERS: PCP Family Medicine; Visit Provider Family Medicine
DX: T81.43XD Infection following a procedure, organ and space surgical site, subsequent encounter (principal)
CPT/HCPCS: 80053; 83735; 84100; 84478

== ENCOUNTER 2021-10-31 18:18 | Outpatient (REF) | payer MEDICARE, OTHER, SELFPAY ==
[2021-10-31 14:14] LABS: HCT 34.1 % (40.0-50.0); HGB 10.6 g/dL (13.5-17.5); MCHC 31.1 % (32.0-36.0); MCV 99.7 fL (80-95); MPV 11.7 fL (8.0-11.0); Platelet Count 227 10^3/uL (130-400); RBC 3.42 10^6/uL (4.36-5.78); RDW 16.5 % (11.8-14.1); RDW-SD 60.7 fL; WBC 7.08 10^3/uL (4.4-10.8)
[2021-10-31 14:33] LABS: Magnesium 2.2 mg/dL (1.8-2.4); Triglyceride 82 mg/dL (<150)
[2021-10-31 14:46] LABS: C-Reactive Protein 0.29 mg/dL (0.0-0.3); PHOSPHORUS 4.7 mg/dL (2.6-4.7)
[2021-10-31 19:39] LABS: Abs Immature Grans 0.02 10^3/uL (0.0-0.06); Absolute Basophil Count 0.02 10^3/uL (0.0-0.2); Absolute Eosinophil Count 0.21 10^3/uL (0.0-0.7); Absolute Lymphocyte Count 1.37 10^3/uL (1.2-3.4); Absolute Monocyte Count 0.79 10^3/uL (0.1-0.8); Absolute Neutrophil Count 4.63 10^3/uL (1.2-6.7); Basophils % 0.3; Immature Grans % 0.3; Lymphocytes % 19.5; Monocytes % 11.2; Neutrophils % 65.7; Nucleated RBC 0 %
[2021-10-31 20:49] LABS: ALT 41 U/L (16-63); AST 19 U/L (15-37); Albumin 2.9 g/dL (3.4-5.0); Alkaline Phosphatase 106 U/L (46-116); Anion Gap 10.3 mmol/L (3-11); BUN 29 mg/dL (7-18); Bilirubin, Total 0.3 mg/dL (0.2-1.0); CO2 24.7 mmol/L (21.0-32.0); CREATININE 0.7 mg/dL (0.70-1.30); Calcium 8.7 mg/dL (8.5-10.1); Chloride 103 mmol/L (98-107); Glucose 198 mg/dL (74-106); Potassium 4.2 mmol/L (3.5-5.1); Sodium 138 mmol/L (136-145); Total Protein 5.9 g/dL (6.4-8.2)
[2021-11-01 09:50] LABS: Prealbumin 22 mg/dL (20-40)
== END 2021-10-31 18:19 | disposition home or self-care (01) ==
LOC: LBN 18:18
PROVIDERS: PCP Family Medicine; Visit Provider Surgery
DX: T81.43XD Infection following a procedure, organ and space surgical site, subsequent encounter; D64.9 Anemia, unspecified
CPT/HCPCS: 80053; 85027; 83735; 84100; 84134; 84478; 85025; 86140

== ENCOUNTER 2021-11-02 09:56 | Observation (INO) | payer MEDICARE, OTHER, SELFPAY ==
[2021-11-02] VITALS (69 sets, daily range): BP systolic 84–149; BP diastolic 38–88; PULSE 72–115; RESP 13–25; TEMP 35.5–36.9; O2SAT 95–99
--- NOTE | 2021-11-02 10:00 | RT.EKG_ITS ---
APPROVED REPORT Exam: Resting ECG Reason for Exam: weakness Patient Location: E HR:80 bpm ECG Measurements Heart Rate 80 AXIS UT 210 P 46 QRSd 90 QRS -45 QT 401 T -9 QTc 460 Conclusion Sinus rhythm...normal P axis, V-rate 60- 99 Low voltage, extremity and precordial leads...extremity<0.5mV, precordial<1.0mV sinus rhythm at 80, left axis, low voltage throughout, no STEMI, low voltage seen on prior 10/02/2021 , nondiagnostic EKG
[2021-11-02] MEDS: Normal Saline 500 ML IV ×2 (10:20→10:56)
--- NOTE | 2021-11-02 10:23 | ED.GENADUL_ITS ---
Discharge Plan Disposition Patient Disposition: [facility] INPATIENT Discharge Details Clinical Impression: Pancreatitis Primary Care Provider: Deepa Oliva V ED Provider: Kely Byrnes Home Meds and New Rx's Prescriptions: No Action tamsulosin 0.4 MG capsule 0.8 mg PO DAILY RF: 0 aspirin [Aspir-Low] 81 MG tablet,delayed release (DR/EC) 81 mg PO DAILY AM RF: 0 furosemide [Lasix] 80 MG tablet 80 mg PO DAILY RF: 0 ascorbic acid (vitamin C) [Vitamin C With Dejah Hips] 1,000 MG tablet 1 tab PO DAILY RF: 0 saw palmetto 500 MG capsule 500 mg PO DAILY RF: 0 cefpodoxime 200 mg tablet 200 mg PO BID RF: 0 ferrous sulfate 324 mg (65 mg iron) Tablet,Delayed Release (Dr/Ec) 324 mg PO DAILY RF: 0 magnesium oxide 400 MG tablet 400 mg PO DAILY Qty: 30 RF: 0 fluoxetine [Prozac] 20 mg Capsule 20 mg PO DAILY RF: 0 levothyroxine [Synthroid] 50 mcg Tablet 25 mcg PO DAILY RF: 0 pantoprazole 20 mg Tablet,Delayed Release (Dr/Ec) 40 mg PO DAILY RF: 0 atorvastatin 40 mg Tablet 40 mg PO DAILY RF: 0 clopidogrel 75 mg Tablet 75 mg PO DAILY RF: 0 nitroglycerin [Nitrostat] 0.4 mg Tablet, Sublingual 0.4 mg SUBLINGUAL Q5-15M PRNRF: 0 polyethylene glycol 3350 17 gram powder in packet 17 g PO DAILY RF: 0 loratadine 10 mg Tablet 10 mg PO DAILY RF: 0 therapeutic multivitamin Tablet 1 tab PO DAILY RF: 0 cyanocobalamin (vitamin B-12) 1,000 mcg/mL Solution 1,000 mcg SUBCUT QWEEK RF: 0 carvedilol 12.5 mg tablet 12.5 mg PO BID RF: 0 fluconazole 200 mg tablet 200 mg PO DAILY RF: 0 ondansetron 4 mg tablet,disintegrating 4 mg PO PRNRF: 0 Saccharomyces boulardii [Florastor] 250 mg Capsule 250 mg PO BID RF: 0 Medical Decision Making Candelario Chang is a 76-year-old man with a history of abdominal aortic aneurysm, atrial fibrillation, coronary artery disease, CHF, COPD, diabetes, hypertension, hypothyroidism, renal insufficiency, hepatic abscess with drain in place, reported recent sepsis with PICC line in place presenting to emergency department with low blood pressure. On exam patient is somewhat chronically ill-appearing but does not appear toxic. There is no chest wall tenderness to palpation, benign cardiopulmonary exam, benign abdominal exam with biliary drain in place 1 to 2 cc of blood in drainage bag. Unclear etiology of hypotension at this time, dehydration versus CHF versus infection/early sepsis versus intra- abdominal process related to hepatic abscess/biliary drain versus other. Doubt acute coronary syndrome, doubt pulmonary embolism. Exam/history at this time is not consistent with acute aortic pathology. Plan for EKG, IV placement, telemetry, gentle IV fluid hydration given history of CHF, screening labs, will perform POCUS Hayes exam, will monitor and reassess. 10:52: Blood pressure 96/60 4:02 100 cc normal saline, patient reporting that he feels at baseline and would like to go home soon as possible. POCUS HAYES exam performed, no apparent abnormality. Suspect possible mild dehydration as etiology of hypotension, lactate resulted as normal, will continue to monitor and reassess. Gentle hydration given history of CHF. lipase elevated >1000, which is a change from prior, d-dimer elevated. Plan for CT c/a/p for further eval. Pt reports no symptoms. 1225: BP 127/77 CT resulted as negative for acute process. 1325: SBP 88, patient remains asymptomatic. I discussed patient presentation and results with Dr. Pritchard of general surgery from [facility], who reports that he is very familiar with patient. He states there is no capacity at [facility] to accept this patient, also states that patient does not need transfer to tertiary care facility at this time but should be watched overnight at [facility] give borderline BPs and elevated lipase consistent with pancreatitis. Patient is amenable to the plan. Will continue gentle hydration. Patient admitted to Dr. Lewis, hospitalist. SBP 110. Medical Records Medical records reviewed: Yes I reviewed the patient's medical records. Imaging Data Radiologic Study: Attestation: I personally reviewed and interpreted this imaging study as follows: Radiologist's impression: EXAM: XR PORTABLE CHEST AP CLINICAL HISTORY: hypotension, chest pain. TECHNIQUE: 2D digital imaging was performed. COMPARISON: CR,XR XR RIBS RT W PA LAT CHEST from 10/13/2021 FINDINGS: Heart size is upper normal. The mediastinum is not widened. Lungs are clear. No infiltrates nor obvious pleural effusions. IMPRESSION: No acute pulmonary findings on this single AP portable view of the chest. Lab Data Lab results reviewed: Yes I reviewed the patient's lab results. Labs: 11/02/21 11:50 Blood Blood Culture - Pending 11/02/21 10:25 Blood Blood Culture - Pending Laboratory Tests Range/Units 11/02/21 11/02/21 11/02/21 10:25 10:25 10:25 WBC (4.4-10.8) 10^3/uL 6.99 RBC (4.36-5.78) 10^6/uL 3.23 L Hgb (13.5-17.5) g/dL 10.0 L Hct (40.0-50.0) % 32.0 L MCV (80-95) fL 99.1 H MCH (27.0-33.0) pg 31.0 MCHC (32.0-36.0) % 31.3 L RDW (11.8-14.1) % 16.6 H Plt Count (130-400) 10^3/uL 192 MPV (8.0-11.0) fL 10.7 Immature Gran % 0.3 Neutrophils % 69.6 Lymphocytes % 13.7 Monocytes % 15.6 Eosinophils % 0.7 Basophils % 0.1 Nucleated RBC % % 0 Absolute Neutrophils (1.2-6.7) 10^3/uL 4.86 Absolute Lymphocytes (1.2-3.4) 10^3/uL 0.96 L Absolute Monocytes (0.1-0.8) 10^3/uL 1.09 H Absolute Eosinophils (0.0-0.7) 10^3/uL 0.05 Absolute Basophils (0.0-0.2) 10^3/uL 0.01 PT (9.3-11.0) sec INR (0.9-1.1) D-Dimer (<500) ng/mlFEU VBG Lactate (0.6-1.4) mmol/L 1.0 Sodium (136-145) mmol/L 136 Potassium (3.5-5.1) mmol/L 4.3 Chloride (98-107) mmol/L 103 Carbon Dioxide (21.0-32.0) mmol/L 25.2 Anion Gap (3-11) mmol/L 7.8 BUN (7-18) mg/dL 30 H Creatinine (0.70-1.30) mg/dL 0.8 Estimated GFR/1.73 m2 (mL/min/1.73m2) >= 60.00 Glucose (74-106) mg/dL 153 H Calcium (8.5-10.1) mg/dL 8.5 Magnesium (1.8-2.4) mg/dL 2.4 Total Bilirubin (0.2-1.0) mg/dL 0.5 AST (15-37) U/L 15 ALT (16-63) U/L 31 Alkaline Phosphatase (46-116) U/L 90 Troponin I (<or=60) ng/L < 50 NT-Pro-B Natriuret Pep (<300) pg/mL Total Protein (6.4-8.2) g/dL 6.0 L Albumin (3.4-5.0) g/dL 2.6 L Lipase (73-393) U/L 1019 H TSH (0.36-3.74) uIU/mL 0.89 Urine Color (Yellow) Urine Clarity (Clear) Urine pH (5-8) Ur Specific [place] (1.005-1.025) Urine Protein (Negative) mg/dL Urine Ketones (Negative) mg/dL Urine Blood (Negative) Urine Nitrite (Negative) Urine Bilirubin (Negative) Urine Urobilinogen (Up TO 0.2) EU/dL Ur Leukocyte Esterase (Negative) Urine Glucose (Negative) mg/dL COVID-19 Source Range/Units 11/02/21 11/02/21 11/02/21 10:25 10:25 10:58 WBC (4.4-10.8) 10^3/uL RBC (4.36-5.78) 10^6/uL Hgb (13.5-17.5) g/dL Hct (40.0-50.0) % MCV (80-95) fL MCH (27.0-33.0) pg MCHC (32.0-36.0) % RDW (11.8-14.1) % Plt Count (130-400) 10^3/uL MPV (8.0-11.0) fL Immature Gran % Neutrophils % Lymphocytes % Monocytes % Eosinophils % Basophils % Nucleated RBC % % Absolute Neutrophils (1.2-6.7) 10^3/uL Absolute Lymphocytes (1.2-3.4) 10^3/uL Absolute Monocytes (0.1-0.8) 10^3/uL Absolute Eosinophils (0.0-0.7) 10^3/uL Absolute Basophils (0.0-0.2) 10^3/uL PT (9.3-11.0) sec 10.8 INR (0.9-1.1) 1.1 D-Dimer (<500) ng/mlFEU 1017 H VBG Lactate (0.6-1.4) mmol/L Sodium (136-145) mmol/L Potassium (3.5-5.1) mmol/L Chloride (98-107) mmol/L Carbon Dioxide (21.0-32.0) mmol/L Anion Gap (3-11) mmol/L BUN (7-18) mg/dL Creatinine (0.70-1.30) mg/dL Estimated GFR/1.73 m2 (mL/min/1.73m2) Glucose (74-106) mg/dL Calcium (8.5-10.1) mg/dL Magnesium (1.8-2.4) mg/dL Total Bilirubin (0.2-1.0) mg/dL AST (15-37) U/L ALT (16-63) U/L Alkaline Phosphatase (46-116) U/L Troponin I (<or=60) ng/L NT-Pro-B Natriuret Pep (<300) pg/mL 296 Total Protein (6.4-8.2) g/dL Albumin (3.4-5.0) g/dL Lipase (73-393) U/L TSH (0.36-3.74) uIU/mL Urine Color (Yellow) Urine Clarity (Clear) Urine pH (5-8) Ur Specific [place] (1.005-1.025) Urine Protein (Negative) mg/dL Urine Ketones (Negative) mg/dL Urine Blood (Negative) Urine Nitrite (Negative) Urine Bilirubin (Negative) Urine Urobilinogen (Up TO 0.2) EU/dL Ur Leukocyte Esterase (Negative) Urine Glucose (Negative) mg/dL COVID-19 Source Range/Units 11/02/21 11/02/21 11/02/21 11:03 13:00 14:15 WBC (4.4-10.8) 10^3/uL RBC (4.36-5.78) 10^6/uL Hgb (13.5-17.5) g/dL Hct (40.0-50.0) % MCV (80-95) fL MCH (27.0-33.0) pg MCHC (32.0-36.0) % RDW (11.8-14.1) % Plt Count (130-400) 10^3/uL MPV (8.0-11.0) fL Immature Gran % Neutrophils % Lymphocytes % Monocytes % Eosinophils % Basophils % Nucleated RBC % % Absolute Neutrophils (1.2-6.7) 10^3/uL Absolute Lymphocytes (1.2-3.4) 10^3/uL Absolute Monocytes (0.1-0.8) 10^3/uL Absolute Eosinophils (0.0-0.7) 10^3/uL Absolute Basophils (0.0-0.2) 10^3/uL PT (9.3-11.0) sec INR (0.9-1.1) D-Dimer (<500) ng/mlFEU VBG Lactate (0.6-1.4) mmol/L Sodium (136-145) mmol/L Potassium (3.5-5.1) mmol/L Chloride (98-107) mmol/L Carbon Dioxide (21.0-32.0) mmol/L Anion Gap (3-11) mmol/L BUN (7-18) mg/dL Creatinine (0.70-1.30) mg/dL Estimated GFR/1.73 m2 (mL/min/1.73m2) Glucose (74-106) mg/dL Calcium (8.5-10.1) mg/dL Magnesium (1.8-2.4) mg/dL Total Bilirubin (0.2-1.0) mg/dL AST (15-37) U/L ALT (16-63) U/L Alkaline Phosphatase (46-116) U/L Troponin I (<or=60) ng/L < 50 NT-Pro-B Natriuret Pep (<300) pg/mL Total Protein (6.4-8.2) g/dL Albumin (3.4-5.0) g/dL Lipase (73-393) U/L TSH (0.36-3.74) uIU/mL Urine Color (Yellow) Yellow Urine Clarity (Clear) Clear Urine pH (5-8) 5.5 Ur Specific [place] (1.005-1.025) 1.015 Urine Protein (Negative) mg/dL Negative Urine Ketones (Negative) mg/dL Negative Urine Blood (Negative) Negative Urine Nitrite (Negative) Negative Urine Bilirubin (Negative) Negative Urine Urobilinogen (Up TO 0.2) EU/dL 0.2 Ur Leukocyte Esterase (Negative) Negative Urine Glucose (Negative) mg/dL Negative COVID-19 Source Nasal/Nares ECG Data Attestation: I personally reviewed and interpreted this ECG (s) as follows: Interpretation: EKG shows sinus rhythm at 80, left axis, low voltage throughout, no STEMI, low voltage seen on prior 10/02/2021, nondiagnostic EKG HPI General Mode of arrival: EMS . Date/Time Provider Initiated Documentation: 11/02/21 10:13 . Limitations to Documentation: no limitations . Information obtained by: patient, RN notes reviewed and old records reviewed . HPI Narrative: Candelario Chang is a 76-year-old man with a history of abdominal aortic aneurysm, atrial fibrillation, coronary artery disease, CHF, COPD, diabetes, hypertension, hypothyroidism, renal insufficiency, hepatic abscess with drain in place, reported recent sepsis with PICC line in place presenting to emergency department with low blood pressure. Patient reports that yesterday he was at [facility] where his biliary drain was adjusted patient reports that his drain has not been emptied since that time he reports that the scant blood that is present in the drain bag is the entire amount of drainage since his visit yesterday. Patient reports that he is scheduled to go back to [facility] for another procedure at 4 PM today, and was told not to eat or drink after midnight last night which she has abided by. Patient reports that he has had chronic diarrhea that he believes is secondary to the antibiotics he is receiving to the PICC line, however he reports this has been improving over the past few days. He reports that he has been eating and drinking relatively well prior to being n.p.o. last night. He denies any pain except for intermittent left lateral chest pain that he rates as a 4 out of 10 when it occurs but that is not currently occurring. He reports feeling tired and generally weak. He denies cough, shortness of breath worse than baseline, numbness, focal weakness, rash, vomiting, fever, swelling. Patient reports that he fell in his usual state of health this morning when his took his vital signs, which she does every morning. Patient notes that his heart rate was 100 and the top number of his blood pressure was 78/40. Patient reports that his was very concerned about vital signs and called EMS. Patient reports that his symptoms this morning were unchanged from what they are every day, no new or acute symptoms. Related Data Home Medications Medication Instructions Recorded Confirmed aspirin [Aspir-Low] 81 mg PO DAILY AM 09/01/13 11/02/21 tamsulosin 0.8 mg PO DAILY 09/01/13 11/02/21 furosemide [Lasix] 80 mg PO DAILY 11/11/13 11/02/21 ascorbic acid (vitamin C) [Vitamin 1 tab PO DAILY 01/21/15 11/02/21 C With Dejah Hips] saw palmetto 500 mg PO DAILY 01/21/15 11/02/21 magnesium oxide 400 mg PO DAILY #30 tab 03/28/17 10/13/21 atorvastatin 40 mg PO DAILY 05/13/21 11/02/21 clopidogrel 75 mg PO DAILY 05/13/21 11/02/21 fluoxetine [Prozac] 20 mg PO DAILY 05/13/21 11/02/21 levothyroxine [Synthroid] 25 mcg PO DAILY 05/13/21 11/02/21 nitroglycerin [Nitrostat] 0.4 mg SUBLINGUAL Q5-15M PRN 05/13/21 11/02/21 pantoprazole 40 mg PO DAILY 05/13/21 11/02/21 loratadine 10 mg PO DAILY 08/03/21 11/02/21 polyethylene glycol 3350 17 g PO DAILY 08/03/21 11/02/21 therapeutic multivitamin 1 tab PO DAILY 08/03/21 11/02/21 cyanocobalamin (vitamin B-12) 1,000 mcg SUBCUT QWEEK 08/05/21 11/02/21 Saccharomyces boulardii [Florastor] 250 mg PO BID 09/12/21 10/02/21 carvedilol 12.5 mg PO BID 09/12/21 11/02/21 fluconazole 200 mg PO DAILY 09/12/21 11/02/21 ondansetron 4 mg PO PRN 09/12/21 cefpodoxime 200 mg PO BID 10/02/21 11/02/21 ferrous sulfate 324 mg PO DAILY 10/02/21 11/02/21 Previous Rx's Medication Instructions Recorded magnesium oxide 400 mg PO DAILY #30 tab 03/28/17 Allergies Allergy/AdvReac Type Severity Reaction Status Date / Time Penicillins Allergy Severe Anaphylaxsi Unverified 11/02/21 10:21 s donepezil [From Aricept] Allergy Mild mild per Unverified 11/02/21 10:21 pcp chart adenosine Allergy Unverified 11/02/21 10:21 metformin [From Glucophage] Allergy per pcp Unverified 11/02/21 10:21 chart--moderate codeine AdvReac Intermediate Dizziness/L Unverified 11/02/21 10:21 ightheade General Stated Complaint: GenMedical DANIEL: 2 Review of Systems Narrative: Constitutional: denies fevers, reports fatigue, generalized weakness Eyes: denies eye pain ENT: denies ear pain, dental pain, sore throat Cardiovascular: denies chest pain, edema Respiratory: denies SOB, cough GI: denies abdominal pain, vomiting, diarrhea : denies flank pain MSK: denies back pain, neck pain, arthralgias, myalgias Skin: denies rash Neuro: denies headaches, numbness, localized weakness PFSH All Active Problems (Updated 11/02/21 @ 14:21 by Kely Byrnes MD) Chest pain (Acute) Abdominal aortic aneurysm dissection (Acute) Left-sided chest pain (Acute) Abdominal pain (Acute) Acute cholecystitis (Acute) Sepsis (Acute) Weakness (Acute) Hepatic abscess (Acute) Orthostatic hypotension (Acute) History of cholecystectomy (Chronic) Contusion of rib (Acute) Pancreatitis (Chronic) Discharge planning issues (Acute) DVT prophylaxis (Acute) BPH (benign prostatic hyperplasia) (Chronic) Pulmonary hypertension (Acute) COPD (chronic obstructive pulmonary disease) (Chronic) Hypertension (Chronic) Hyperlipidemia (Chronic) Diabetes (Chronic) Allergy to codeine (Chronic) Allergy to penicillin (Chronic) CAD (coronary artery disease) (Chronic) CHF (congestive heart failure) (Chronic 10/21/13) Medical History Apical mural thrombus Atrial fib/flutter, transient Mena's palsy CAD (coronary artery disease) Cardiomyopathy CHF (congestive heart failure) COPD (chronic obstructive pulmonary disease) DM (diabetes mellitus) HTN (hypertension) Hypothyroidism Obesity (BMI 30.0-34.9) ORLIN (obstructive sleep apnea) Renal insufficiency Surgical History Appendectomy Colonoscopy - MAC (08/04/16) Hx of cardiac cath in [place] in the - unknown intervention [facility] [place] 2012 - clean coronaries, severe pulmonary hypertension, no prior stent found Family History Mother Cervical cancer Other Colon cancer Social History Smoking/Tobacco Use Status: Former Tobacco Use Smoking risk assessment performed?: Yes Drug use: Never Substance use type: does not use Details: states he has increased his alcohol use recently due to the heat Do you feel safe at home: Yes Do you feel safe in your relationship?: Yes Exam Narrative Exam Narrative: Constitutional: well and [id number], pleasant, conversing normally HENT: head atraumatic/normocephalic/normal inspection, mucous membranes moist Eyes: conjunctiva normal, sclera normal, pupils 3mm b/l Neck: no stridor, normal ROM, trachea midline Chest: normal inspection Resp: normal work of breathing, LCTAB Cardio: normal rate, normal rhythm, no murmur appreciated GI: abdomen soft, non-tender, non-distended, biliary drain in place, site clean/dry/intact. There is no drainage from around site, scant amount of bright red blood in drainage bag Skin: warm, dry, normal color, no rash Neuro: alert, not altered, grossly non-focal, normal tone Ext: no edema, no posterior calf tenderness to palpation Psych: normal mood, normal affect, normal behavior Course Vital Signs Vital signs: Vital Signs Temperature 36.9 C 11/02/21 10:01 Pulse 79 11/02/21 10:01 Respiratory Rate 18 11/02/21 10:01 Blood Pressure 93/54 L 11/02/21 10:01 Pulse Oximetry 96 11/02/21 10:01 Temperature 36.9 C 11/02/21 10:01 Temperature Source Oral 11/02/21 10:01 Pulse 79 11/02/21 10:01 Respiratory Rate 18 11/02/21 10:01 Respiratory Effort Non-Labored 11/02/21 10:08 Blood Pressure 93/54 L 11/02/21 10:01 Blood Pressure Position Supine 11/02/21 10:01 Pulse Oximetry 96 11/02/21 10:01 Oxygen Delivery Method Room Air 11/02/21 10:01 Oxygen Flow Rate 0 11/02/21 10:01 Pain Level 5 11/02/21 10:01 Lab/Test Results Lab/Test Results: 11/02/21 10:13 Blood Blood Culture - Pending 11/02/21 10:13 Blood Blood Culture - Pending
[2021-11-02 10:36] LABS: Abs Immature Grans 0.02 10^3/uL (0.0-0.06); Absolute Basophil Count 0.01 10^3/uL (0.0-0.2); Absolute Eosinophil Count 0.05 10^3/uL (0.0-0.7); Absolute Lymphocyte Count 0.96 10^3/uL (1.2-3.4); Absolute Monocyte Count 1.09 10^3/uL (0.1-0.8); Absolute Neutrophil Count 4.86 10^3/uL (1.2-6.7); Basophils % 0.1; Eosinophils % 0.7; Immature Grans % 0.3; Lymphocytes % 13.7; MCHC 31.3 % (32.0-36.0); MCV 99.1 fL (80-95); MPV 10.7 fL (8.0-11.0); Monocytes % 15.6; Neutrophils % 69.6; Nucleated RBC 0 %; Platelet Count 192 10^3/uL (130-400); RBC 3.23 10^6/uL (4.36-5.78); RDW 16.6 % (11.8-14.1); RDW-SD 61.1 fL; WBC 6.99 10^3/uL (4.4-10.8)
--- NOTE | 2021-11-02 10:45 | DI.RAD_ITS ---
Exam(s) XR PORTABLE CHEST AP EXAM: XR PORTABLE CHEST AP CLINICAL HISTORY: hypotension, chest pain. TECHNIQUE: 2D digital imaging was performed. COMPARISON: CR,XR XR RIBS RT W PA LAT CHEST from 10/13/2021 FINDINGS: Heart size is upper normal. The mediastinum is not widened. Lungs are clear. No infiltrates nor obvious pleural effusions. IMPRESSION: No acute pulmonary findings on this single AP portable view of the chest. DATA REPOSITORY: RADIATION DOSE DELIVERED: All CT scans at this facility use at least one of these dose optimization techniques: automated exposure control; mA and/or kV adjustment per patient size (includes targeted e xams where dose is matched to clinical indication); or iterative reconstruction.
[2021-11-02 10:46] LABS: INR 1.1 (0.9-1.1); Prothrombin Time 10.8 sec (9.3-11.0)
[2021-11-02 11:04] LABS: NT-proBNP 296 pg/mL (<300)
[2021-11-02 11:07] LABS: ALT 31 U/L (16-63); AST 15 U/L (15-37); Albumin 2.6 g/dL (3.4-5.0); Alkaline Phosphatase 90 U/L (46-116); Anion Gap 7.8 mmol/L (3-11); BUN 30 mg/dL (7-18); Bilirubin, Total 0.5 mg/dL (0.2-1.0); CO2 25.2 mmol/L (21.0-32.0); CREATININE 0.8 mg/dL (0.70-1.30); Calcium 8.5 mg/dL (8.5-10.1); Chloride 103 mmol/L (98-107); Glucose 153 mg/dL (74-106); Lipase 1019 U/L (73-393); Magnesium 2.4 mg/dL (1.8-2.4); Potassium 4.3 mmol/L (3.5-5.1); Sodium 136 mmol/L (136-145); TSH (W/Ref FT4) 0.89 uIU/mL (0.36-3.74); Troponin I < 50 ng/L (<or=60)
--- NOTE | 2021-11-02 11:15 | DI.CT_ITS ---
Exam(s) CT CHEST/ABD/PEL W EXAM: CT CHEST/ABD/PEL W CLINICAL HISTORY: hypotension, elevated lipase, weakness. TECHNIQUE: Imaging Protocol: Axial computed tomography images with coronal and sagittal reformatted images were created and reviewed CONTRAST MATERIAL: Intravenous: Omnipaque 350 Contrast volume:100 ml Oral: None COMPARISON: CT CT THORAX ABD/PEL CTA from 10/02/2021 FINDINGS: CHEST: LUNGS: The size of the right pleural effusion has decreased. Right pleural effusion is now small but still so seated with some mild volume loss in the right lower lobe basal segments. This pleural eff usion does not appear loculated. There is an unchanged 5 millimeter nodule in the right upper lobe ( series 4/image 27). No other focal findings in the right upper and right middle lobes. In the right lower lobe there are no new focal lung findings, realizing that the posterior basal segment is parti ally collapsed due to relaxation atelectasis (pleural effusion). In the opposite-left lung there are mild unchanged increased markings in the lingular segment. No ne w ominous pulmonary nodules and no pleural fluid on the left side MEDIASTINUM: There is no hilar nor mediastinal adenopathy. Visualized thyroid unremarkable. CARDIAC: Heart size is normal. There is no pericardial effusion.Descending thoracic aorta is again n oted be atherosclerotic. OSSEOUS: No significant osseous lesions.. ABDOMEN: There has been no recurrence of the perihepatic abscess since removal of the more laterally located p igtail drainage catheter. The gallbladder fossa pigtail drainage catheter remains in place, non kink ed. There is a small amount of free fluid and free air adjacent to it. Stent is again noted in the CBD which contains a air-fluid level on the supine study. No significant dilatation of intrahepatic ducts. Mild pneumobilia noted. LIVER: No patent lesions identified. Mild pneumobilia in the left hepatic lobe. GALLBLADDER/BILIARY: Surgically absent. Pigtail drainage catheter in gallbladder fossa as described above. PANCREAS: No evidence of pancreatic mass nor dilatation of the pancreatic duct. No prominent regiona l adenopathy evident. No vascular encasement. SPLEEN: Spleen is not enlarged. There are no intrasplenic lesions. Splenic and portal veins are villasenor nt. ADRENALS: There are no significant adrenal masses. KIDNEYS: No calculi nor hydronephrosis. No solid renal masses. No cysts evident. ABDOMINAL AORTA: Focal dissection chronic type again noted in the lower abdominal aorta, not extendin g into the iliac arteries.. LYMPH NODES: There is no retroperitoneal nor paraaortic adenopathy. ABDOMINAL WALL: Right inguinal hernia again noted containing part of the urinary bladder GI: There is no evidence of bowel obstruction. PELVIS: LYMPH NODES: There is no intrapelvic nor inguinal adenopathy. GI: No evidence of appendicitis.No evidence of sigmoid diverticulitis. URINARY BLADDER: No calculi nor masses evident. Anterior right side of the urinary bladder is in the right inguinal canal, as was previously the case. REPRODUCTIVE: Prostate gland size is upper normal. Slightly lobulated. OSSEOUS: No significant osseous lesions. IMPRESSION: 1. Compared to the prior CT scan of 10/02/2021 the size of the right pleural effusion has decreased a nd is presently judged as being a small unilateral right pleural effusion, non loculated. 2. Small 5 millimeter nodule in the right lung is unchanged. No other significant pulmonary nodules. No intrathoracic adenopathy. 3. Gallbladder fossa pigtail drainage catheter remains in satisfactory position. There is a small am ount of fluid in free air adjacent to the catheter on today's study. Correlation with clinical findi ngs and time since most recent catheter flushing recommended. Gallbladder is surgically absent. 4. 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 5. Right side of the urinary bladder is partially included in the right inguinal canal, unchanged. The bladder is not distended. There is no leakage around the bladder evident. Prostate size is uppe r normal. RADIATION DOSE DELIVERED: 1,526.67mGy.cm Total DLP DATA REPOSITORY: All CT scans at this facility are submitted to the National Radiology Data Registry (NRDR) Dose Index Registry (DIR) with the [employer] ([employer]). RADIATION OPTIMIZATION: All CT scans at this facility use at least one of these dose optimization te chniques: automated exposure control; mA and/or kV adjustment per patient size (includes targeted exa ms where dose is matched to clinical indication); or iterative reconstruction.
[2021-11-02 11:47] LABS: D-Dimer 1017 ng/mlFEU (<500)
[2021-11-02 11:49] LABS: Bilirubin Negative (Negative); Blood Negative (Negative); Clarity Clear (Clear); Glucose Negative (Negative); Ketones Negative (Negative); Leukocyte Esterase Negative (Negative); Nitrite Negative (Negative); Specific Gravity 1.015 (1.005-1.025); Urobilinogen 0.2 EU/dL (Up TO 0.2); pH 5.5 (5-8)
[2021-11-02] MEDS: Omnipaque 350 MG/ML 100 ML BTL IJ (12:07)
[2021-11-02] MEDS: Normal Saline 500 ML 1000 ML IV (13:10)
[2021-11-02 13:21] LABS: Troponin I < 50 ng/L (<or=60)
[2021-11-02 14:24] LABS: Source Nasal/Nares
--- NOTE | 2021-11-02 16:40 | W.PM.HP.N ---
Date of service: 11/02/21 Time of Service: 16:41 Assessment and Plan Assessment and plan (1) Abdominal aortic aneurysm dissection: Status: Acute (2) Hepatic abscess: Status: Acute Assessment and plan: Occured after cholecystectomy. Percutaneous drain in place. Very small amount of serosanguenous drainage in the bag. No fever, elevated WBC count. Was [place] [facility] [place] (3) COPD (chronic obstructive pulmonary disease): Status: Chronic Assessment and plan: No acute respiratory symptoms. On no inhalers. (4) Diabetes: Status: Chronic Assessment and plan: He has lost 50# during this illness. (5) CAD (coronary artery disease): Status: Chronic Assessment and plan: Currently w/o angina. On ASA, Plavix, BB and statin. Hold BB now given low normal BP on presentation. REstart when BP allows. (6) CHF (congestive heart failure): Status: Chronic Assessment and plan: NTProBNP normal. (7) Cardiomyopathy: (8) Elevated lipase: Status: Acute Assessment and plan: No abd pain, N/V. Pancreas appeared normal on CT Lipase in AM History of Present Illness History of Present Illness Chief Complaint: hypotension Narrative: This is a 76 yo male with an extensive PMH of Afib, CAD, CHF, COPD DM2, HTN, hypothyroidism, AAA, renal insufficiency, necrosis of GB with abscess; percutaneous drain in place. He presented with low BP at home. No F/C, N/V/abd pain. No syncope, dizziness. BP in ED of 93/54 initially. SBP did occasional decrease into the 80's. He was given 2.5L IV fluids and BP recovered. WBC count normal. Hgb 10. Lytes normal. BUN 30. Creatinine 0.8. Lipase 1019. UA unremarkable. CXR w/o acute findings. CT chest/abd/pelvis: 1. Compared to the prior CT scan of 10/02/2021 the size of the right pleural effusion has decreased and is presently judged as being a small unilateral right pleural effusion, non loculated. 2. Small 5 millimeter nodule in the right lung is unchanged. No other significant pulmonary nodules. No intrathoracic adenopathy. 3. Gallbladder fossa pigtail drainage catheter remains in satisfactory position. There is a small amount of fluid in free air adjacent to the catheter on today's study. Correlation with clinical findings and time since most recent catheter flushing recommended. Gallbladder is surgically absent. 4. 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 5. Right side of the urinary bladder is partially included in the right inguinal canal, unchanged. The bladder is not distended. There is no leakage around the bladder evident. Prostate size is upper normal. ED provider spike with Dr Pritcahrd, general surgery, [place] [facility] [place] very familiar with the patient. Given the borderline BP readings and the elevated lipase suggested overnight observation at [facility] All Active Problems (Updated 11/02/21 @ 16:53 by Buzz Lewis MD) Elevated lipase (Acute) Chest pain (Acute) Abdominal aortic aneurysm dissection (Acute) Left-sided chest pain (Acute) Abdominal pain (Acute) Acute cholecystitis (Acute) Sepsis (Acute) Weakness (Acute) Hepatic abscess (Acute) Orthostatic hypotension (Acute) History of cholecystectomy (Chronic) Contusion of rib (Acute) Pancreatitis (Chronic) Discharge planning issues (Acute) DVT prophylaxis (Acute) BPH (benign prostatic hyperplasia) (Chronic) Pulmonary hypertension (Acute) COPD (chronic obstructive pulmonary disease) (Chronic) Hypertension (Chronic) Hyperlipidemia (Chronic) Diabetes (Chronic) Allergy to codeine (Chronic) Allergy to penicillin (Chronic) CAD (coronary artery disease) (Chronic) CHF (congestive heart failure) (Chronic 10/21/13) Medical History Apical mural thrombus Atrial fib/flutter, transient Mena's palsy CAD (coronary artery disease) Cardiomyopathy CHF (congestive heart failure) COPD (chronic obstructive pulmonary disease) DM (diabetes mellitus) HTN (hypertension) Hypothyroidism Obesity (BMI 30.0-34.9) ORLIN (obstructive sleep apnea) Renal insufficiency Surgical History Appendectomy Colonoscopy - MAC (08/04/16) Hx of cardiac cath in [place] in the - unknown [place] [facility] [place] clean coronaries, severe pulmonary hypertension, no prior stent found Family History Mother Cervical cancer Other Colon cancer Social History Smoking/Tobacco Use Status: Former Tobacco Use Smoking risk assessment performed?: Yes Drug use: Never Substance use type: does not use Details: states he has increased his alcohol use recently due to the heat Do you feel safe at home: Yes Do you feel safe in your relationship?: Yes Meds Allergies and Home Medications Allergies Allergy/AdvReac Type Severity Reaction Status Date / Time Penicillins Allergy Severe Anaphylaxsi Unverified 11/02/21 10:21 s donepezil [From Aricept] Allergy Mild mild per Unverified 11/02/21 10:21 pcp chart adenosine Allergy Unverified 11/02/21 10:21 metformin [From Glucophage] Allergy per pcp Unverified 11/02/21 10:21 chart--moderate codeine AdvReac Intermediate Dizziness/L Unverified 11/02/21 10:21 ightheade Home Medications Medication Instructions Recorded Confirmed Type aspirin [Aspir-Low] 81 mg PO DAILY AM 09/01/13 11/02/21 History tamsulosin 0.8 mg PO DAILY 09/01/13 11/02/21 History furosemide [Lasix] 80 mg PO DAILY 11/11/13 11/02/21 History ascorbic acid (vitamin C) [Vitamin 1 tab PO DAILY 01/21/15 11/02/21 History C With Dejah Hips] saw palmetto 500 mg PO DAILY 01/21/15 11/02/21 History magnesium oxide 400 mg PO DAILY #30 tab 03/28/17 10/13/21 Rx atorvastatin 40 mg PO DAILY 05/13/21 11/02/21 History clopidogrel 75 mg PO DAILY 05/13/21 11/02/21 History fluoxetine [Prozac] 20 mg PO DAILY 05/13/21 11/02/21 History levothyroxine [Synthroid] 25 mcg PO DAILY 05/13/21 11/02/21 History nitroglycerin [Nitrostat] 0.4 mg SUBLINGUAL Q5-15M PRN 05/13/21 11/02/21 History pantoprazole 40 mg PO DAILY 05/13/21 11/02/21 History loratadine 10 mg PO DAILY 08/03/21 11/02/21 History polyethylene glycol 3350 17 g PO DAILY 08/03/21 11/02/21 History therapeutic multivitamin 1 tab PO DAILY 08/03/21 11/02/21 History cyanocobalamin (vitamin B-12) 1,000 mcg SUBCUT QWEEK 08/05/21 11/02/21 History Saccharomyces boulardii [Florastor] 250 mg PO BID 09/12/21 10/02/21 History carvedilol 12.5 mg PO BID 09/12/21 11/02/21 History fluconazole 200 mg PO DAILY 09/12/21 11/02/21 History ondansetron 4 mg PO PRN 09/12/21 History cefpodoxime 200 mg PO BID 10/02/21 11/02/21 History ferrous sulfate 324 mg PO DAILY 10/02/21 11/02/21 History Exam Const General: cooperative and no acute distress Nutritional Appearance: obese Orientation: oriented x3 Eyes General: appearance normal, both eyes and all related structures Sclera: sclerae normal Neck Neck: full ROM and no JVD Resp Effort & Inspection: normal respiratory effort Auscultation: clear to auscultation bilaterally Cardio Rate: regular rate Rhythm: regular rhythm Heart Sounds: S1 normal and S2 normal GI Inspection: other (Biliary drain in place.) Palpation: soft and nontender Auscultation: normal bowel sounds Skin General skin exam: no rashes or lesions noted Extrem General: no pedal edema and no calf tenderness Psych Appearance: grossly normal Speech and Movement: speech and movement normal Mood: congruent mood Affect: normal affect Results Labs Result diagrams: 11/03/21 06:18 11/03/21 06:18 Labs: Laboratory Results - last 24 hr 11/02/21 11/02/21 11/02/21 10:25 10:25 10:25 WBC 6.99 RBC 3.23 L Hgb 10.0 L Hct 32.0 L MCV 99.1 H MCH 31.0 MCHC 31.3 L RDW 16.6 H Plt Count 192 MPV 10.7 Immature Gran % 0.3 Neutrophils % 69.6 Lymphocytes % 13.7 Monocytes % 15.6 Eosinophils % 0.7 Basophils % 0.1 Nucleated RBC % 0 Absolute Neutrophils 4.86 Absolute Lymphocytes 0.96 L Absolute Monocytes 1.09 H Absolute Eosinophils 0.05 Absolute Basophils 0.01 PT INR D-Dimer VBG Lactate 1.0 Sodium 136 Potassium 4.3 Chloride 103 Carbon Dioxide 25.2 Anion Gap 7.8 BUN 30 H Creatinine 0.8 Estimated GFR/1.73 m2 >= 60.00 Glucose 153 H Calcium 8.5 Magnesium 2.4 Total Bilirubin 0.5 AST 15 ALT 31 Alkaline Phosphatase 90 Troponin I < 50 NT-Pro-B Natriuret Pep Total Protein 6.0 L Albumin 2.6 L Lipase 1019 H TSH 0.89 Urine Color Urine Clarity Urine pH Ur Specific [place] Urine Protein Urine Ketones Urine Blood Urine Nitrite Urine Bilirubin Urine Urobilinogen Ur Leukocyte Esterase Urine Glucose COVID-19 Source 11/02/21 11/02/21 11/02/21 10:25 10:25 10:58 WBC RBC Hgb Hct MCV MCH MCHC RDW Plt Count MPV Immature Gran % Neutrophils % Lymphocytes % Monocytes % Eosinophils % Basophils % Nucleated RBC % Absolute Neutrophils Absolute Lymphocytes Absolute Monocytes Absolute Eosinophils Absolute Basophils PT 10.8 INR 1.1 D-Dimer 1017 H VBG Lactate Sodium Potassium Chloride Carbon Dioxide Anion Gap BUN Creatinine Estimated GFR/1.73 m2 Glucose Calcium Magnesium Total Bilirubin AST ALT Alkaline Phosphatase Troponin I NT-Pro-B Natriuret Pep 296 Total Protein Albumin Lipase TSH Urine Color Urine Clarity Urine pH Ur Specific [place] Urine Protein Urine Ketones Urine Blood Urine Nitrite Urine Bilirubin Urine Urobilinogen Ur Leukocyte Esterase Urine Glucose COVID-19 Source 11/02/21 11/02/21 11/02/21 11:03 13:00 14:15 WBC RBC Hgb Hct MCV MCH MCHC RDW Plt Count MPV Immature Gran % Neutrophils % Lymphocytes % Monocytes % Eosinophils % Basophils % Nucleated RBC % Absolute Neutrophils Absolute Lymphocytes Absolute Monocytes Absolute Eosinophils Absolute Basophils PT INR D-Dimer VBG Lactate Sodium Potassium Chloride Carbon Dioxide Anion Gap BUN Creatinine Estimated GFR/1.73 m2 Glucose Calcium Magnesium Total Bilirubin AST ALT Alkaline Phosphatase Troponin I < 50 NT-Pro-B Natriuret Pep Total Protein Albumin Lipase TSH Urine Color Yellow Urine Clarity Clear Urine pH 5.5 Ur Specific [place] 1.015 Urine Protein Negative Urine Ketones Negative Urine Blood Negative Urine Nitrite Negative Urine Bilirubin Negative Urine Urobilinogen 0.2 Ur Leukocyte Esterase Negative Urine Glucose Negative COVID-19 Source Nasal/Nares Last Vital Signs Temp 36.6 C 11/02/21 15:27 Pulse 79 11/02/21 15:44 Resp 17 11/02/21 15:27 BP 111/59 L 11/02/21 15:27 Pulse Ox 97 11/02/21 15:27
[2021-11-02 16:57] LABS: COVID-19 PCR Negative (Negative)
--- NOTE | 2021-11-02 18:00 | RT.EKG_ITS ---
APPROVED REPORT Exam: Resting ECG Reason for Exam: chest pain Patient Location: I HR:93 bpm ECG Measurements Heart Rate 93 AXIS LA 206 P -26 QRSd 98 QRS -48 QT 361 T 13 QTc 448 Conclusion Sinus rhythm...normal P axis, V-rate 60- 99 Left anterior fascicular block...axis(240,-40), init forces inf Low voltage, extremity and precordial leads...extremity<0.5mV, precordial<1.0mV Consider anterior infarct...Q >30mS in V2-V5
[2021-11-02 18:43] LABS: Troponin I < 50 ng/L (<or=60)
[2021-11-02] MEDS: Cefpodoxime 200 MG TAB PO (19:47)
[2021-11-02 22:26] LABS: Troponin I < 50 ng/L (<or=60)
[2021-11-03] VITALS: PULSE 82
[2021-11-03 03:07] VITALS: BP 121/67; PULSE 78; RESP 19; TEMP 35.6; O2SAT 99
[2021-11-03] MEDS: Levothyroxine 25 MCG TAB PO (06:12)
[2021-11-03 06:55] LABS: Abs Immature Grans 0.02 10^3/uL (0.0-0.06); Absolute Basophil Count 0.02 10^3/uL (0.0-0.2); Absolute Eosinophil Count 0.22 10^3/uL (0.0-0.7); Absolute Lymphocyte Count 1.09 10^3/uL (1.2-3.4); Absolute Monocyte Count 1.06 10^3/uL (0.1-0.8); Absolute Neutrophil Count 3.51 10^3/uL (1.2-6.7); Basophils % 0.3; Eosinophils % 3.7; HCT 36.8 % (40.0-50.0); HGB 11.3 g/dL (13.5-17.5); Immature Grans % 0.3; Lymphocytes % 18.4; MCHC 30.7 % (32.0-36.0); MCV 100.8 fL (80-95); MPV 10.8 fL (8.0-11.0); Monocytes % 17.9; Neutrophils % 59.4; Nucleated RBC 0 %; Platelet Count 188 10^3/uL (130-400); RBC 3.65 10^6/uL (4.36-5.78); RDW 16.5 % (11.8-14.1); RDW-SD 61.5 fL; WBC 5.92 10^3/uL (4.4-10.8)
[2021-11-03 07:06] LABS: Anion Gap 6.8 mmol/L (3-11); BUN 24 mg/dL (7-18); CO2 27.2 mmol/L (21.0-32.0); CREATININE 0.6 mg/dL (0.70-1.30); Calcium 8.5 mg/dL (8.5-10.1); Chloride 108 mmol/L (98-107); Glucose 180 mg/dL (74-106); Potassium 4.1 mmol/L (3.5-5.1); Sodium 142 mmol/L (136-145)
[2021-11-03 07:31] VITALS: PULSE 96
[2021-11-03 07:49] LABS: Lipase 161 U/L (73-393)
[2021-11-03] MEDS: Atorvastatin 40 MG TAB PO (08:10)
[2021-11-03] MEDS: Pantoprazole 40 MG TABCR PO (08:10)
[2021-11-03] MEDS: Aspirin E.C. 81 MG TABEC PO (08:10)
[2021-11-03] MEDS: Fluconazole 100 MG TAB 200 MG PO (08:10)
[2021-11-03] MEDS: Tamsulosin 0.4 MG CAPCR 0.8 MG PO (08:10)
[2021-11-03] MEDS: Cefpodoxime 200 MG TAB PO (08:10)
[2021-11-03] MEDS: Loratidine 10 MG TAB PO (08:10)
[2021-11-03] MEDS: Magnesium Oxide 400 MG TAB PO (08:11)
[2021-11-03] MEDS: FLUoxetine 20 MG CAP PO (08:11)
[2021-11-03] MEDS: Clopidogrel 75 MG TAB PO (08:11)
[2021-11-03] MEDS: Polyethylene Glycol 3350 17 GM PACKET PO (08:11)
[2021-11-03] MEDS: Ascorbic Acid 500 MG TAB PO (08:11)
[2021-11-03 08:21] VITALS: BP 135/90; PULSE 95; RESP 20; TEMP 37.1; O2SAT 100
--- NOTE | 2021-11-03 08:48 | W.PM.DS.N ---
Date of service: 11/03/21 Time of Service: 08:49 DS: Diagnosis Discharge Diagnosis (1) Abdominal aortic aneurysm dissection: Status: Acute (2) Hepatic abscess: Status: Acute (3) COPD (chronic obstructive pulmonary disease): Status: Chronic (4) Diabetes: Status: Chronic (5) CAD (coronary artery disease): Status: Chronic (6) CHF (congestive heart failure): Status: Chronic (7) Cardiomyopathy: (8) Elevated lipase: Status: Acute Discharge Plan Disposition Patient Disposition: HOME Condition: Fair Discharge Details Reason For Visit: Hypotension, Pancreatitis Admit Date/Time: 11/02/21 14:01 Admit Provider: Buzz Lewis Attending Provider: Buzz Lewis Primary Care Provider: Deepa Oliva V Hospital Course Hospital Course: This is a 76 yo male with an extensive PMH of Afib, CAD, CHF, COPD DM2, HTN, hypothyroidism, AAA, renal insufficiency, necrosis of GB with abscess; percutaneous drain in place. He presented with low BP at home. No F/C, N/V/abd pain. No syncope, dizziness. BP in ED of 93/54 initially. SBP did occasional decrease into the 80's. He was given 2.5L IV fluids and BP recovered. WBC count normal. Hgb 10. Lytes normal. BUN 30. Creatinine 0.8. Lipase 1019. UA unremarkable. CXR w/o acute findings. CT chest/abd/pelvis: 1. Compared to the prior CT scan of 10/02/2021 the size of the right pleural effusion has decreased and is presently judged as being a small unilateral right pleural effusion, non loculated. 2. Small 5 millimeter nodule in the right lung is unchanged. No other significant pulmonary nodules. No intrathoracic adenopathy. 3. Gallbladder fossa pigtail drainage catheter remains in satisfactory position. There is a small amount of fluid in free air adjacent to the catheter on today's study. Correlation with clinical findings and time since most recent catheter flushing recommended. Gallbladder is surgically absent. 4. 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 5. Right side of the urinary bladder is partially included in the right inguinal canal, unchanged. The bladder is not distended. There is no leakage around the bladder evident. Prostate size is upper normal. ED provider spike with Dr Pritchard, general surgery, at [facility] [place] who is very familiar with the patient. Given the borderline BP readings and the elevated lipase suggested [facility] observation [facility]. He remained stable overnight w/o abd pain, N/V or any other occurences. His lipase was normal the following AM. PCP f/u in 1-2 weeks. Reschedule visit with [facility] [place] [facility]. Home Meds and New Rx's Prescriptions: Continued tamsulosin 0.4 MG capsule 0.8 mg PO DAILY RF: 0 aspirin [Aspir-Low] 81 MG tablet,delayed release (DR/EC) 81 mg PO DAILY AM RF: 0 furosemide [Lasix] 80 MG tablet 80 mg PO DAILY RF: 0 ascorbic acid (vitamin C) [Vitamin C With Dejah Hips] 1,000 MG tablet 1 tab PO DAILY RF: 0 saw palmetto 500 MG capsule 500 mg PO DAILY RF: 0 cefpodoxime 200 mg tablet 200 mg PO BID RF: 0 ferrous sulfate 324 mg (65 mg iron) Tablet,Delayed Release (Dr/Ec) 324 mg PO DAILY RF: 0 magnesium oxide 400 MG tablet 400 mg PO DAILY Qty: 30 RF: 0 fluoxetine [Prozac] 20 mg Capsule 20 mg PO DAILY RF: 0 levothyroxine [Synthroid] 50 mcg Tablet 25 mcg PO DAILY RF: 0 pantoprazole 20 mg Tablet,Delayed Release (Dr/Ec) 40 mg PO DAILY RF: 0 atorvastatin 40 mg Tablet 40 mg PO DAILY RF: 0 clopidogrel 75 mg Tablet 75 mg PO DAILY RF: 0 nitroglycerin [Nitrostat] 0.4 mg Tablet, Sublingual 0.4 mg SUBLINGUAL Q5-15M PRNRF: 0 polyethylene glycol 3350 17 gram powder in packet 17 g PO DAILY RF: 0 loratadine 10 mg Tablet 10 mg PO DAILY RF: 0 therapeutic multivitamin Tablet 1 tab PO DAILY RF: 0 cyanocobalamin (vitamin B-12) 1,000 mcg/mL Solution 1,000 mcg SUBCUT QWEEK RF: 0 carvedilol 12.5 mg tablet 12.5 mg PO BID RF: 0 ondansetron 4 mg tablet,disintegrating 4 mg PO PRNRF: 0 Saccharomyces boulardii [Florastor] 250 mg Capsule 250 mg PO BID RF: 0 Discharge Instructions Instructions: Pancreatitis (DC), Hypotension (DC) Stand Alone Forms: Nursing Discharge Form Referrals: Deepa Oliva MD [Primary Care Provider] - 11/10/21 8:00 am Activity:: Activity as Tolerated Equipment/Supplies:: No Equipment Needed Diet:: Resume usual diet Discharge Orders Discharge Orders: Discharge Order (Routine); Ordered 11/03/21 Ordered By: Buzz Lewis Discharge Data Discharge Date/Time-TO BE ENTERED AT DEPARTURE: 11/03/21 10:07 DS: Summary Time Spent with Patient providing and/or coordinating discharge services: Less than 30 minutes Status at Discharge Functional status at discharge: independent ambulation Overall status at discharge: patient is back to baseline Mental Status: mental status grossly normal Speech and Movement: speech and movement normal Mood: congruent mood Affect: normal affect Exam Psych Mental Status: mental status grossly normal Speech and Movement: speech and movement normal Mood: congruent mood Affect: normal affect DS: Data Vitals/I&O Vitals and I&O: Vital Signs Temperature 37.1 C 11/03/21 08:21 Temperature Source Tympanic 11/03/21 08:21 Pulse 95 H 11/03/21 08:21 Pulse Rhythm Regular 11/03/21 03:00 Pulse 95 H 11/02/21 15:01 Respiratory Rate 20 11/03/21 08:21 Respiratory Effort 11/03/21 03:00 Respiratory Depth Normal 11/03/21 03:00 Respiratory Pattern Normal 11/03/21 03:00 Blood Pressure 135/90 11/03/21 08:21 Blood Pressure Mean 71 11/02/21 15:01 Blood Pressure Position Supine 11/02/21 10:01 Pulse Oximetry 100 11/03/21 08:21 Oxygen Delivery Method Nasal Cannula 11/03/21 08:21 Oxygen Flow Rate 2 11/03/21 08:21 Pain Level 0 11/03/21 08:21 Comment 11/02/21 23:12 Intake & Output 11/02/21 11/02/21 11/03/21 11:59 23:59 11:59 Intake Total 1000 / 1620 620 / 1620 240 / 240 Output Total 250 / 1700 1450 / 1700 1405 / 1405 Balance 750 / -80 -830 / -80 -1165 / -1165 Weight 95.2 kg 95.2 kg Intake: IV 1000 / 1500 500 / 1500 Oral 120 / 120 240 / 240 Output: Drainage 5 / 5 Right Abdomen 5 / 5 Urine 250 / 1700 1450 / 1700 1400 / 1400 Other: Urine Color Yellow Yellow Urine Appearance Clear Clear Urine Odor None None Comment pT was incont. moderate on arrival to unit. Voiding Methods Urinal Urinal Data Completed and Pending Labs on day of discharge: Labs from last 24 hours 11/03/21 11/03/21 11/03/21 06:18 06:18 06:18 WBC 5.92 RBC 3.65 L Hgb 11.3 L Hct 36.8 L MCV 100.8 H MCH 31.0 MCHC 30.7 L RDW 16.5 H Plt Count 188 MPV 10.8 Immature Gran % 0.3 Neutrophils % 59.4 Lymphocytes % 18.4 Monocytes % 17.9 Eosinophils % 3.7 Basophils % 0.3 Nucleated RBC % 0 Absolute Neutrophils 3.51 Absolute Lymphocytes 1.09 L Absolute Monocytes 1.06 H Absolute Eosinophils 0.22 Absolute Basophils 0.02 PT INR D-Dimer VBG Lactate Sodium 142 Potassium 4.1 Chloride 108 H Carbon Dioxide 27.2 Anion Gap 6.8 BUN 24 H Creatinine 0.6 L Estimated GFR/1.73 m2 >= 60.00 Glucose 180 H Calcium 8.5 Magnesium Total Bilirubin AST ALT Alkaline Phosphatase Troponin I NT-Pro-B Natriuret Pep Total Protein Albumin Lipase 161 TSH Urine Color Urine Clarity Urine pH Ur Specific [place] Urine Protein Urine Ketones Urine Blood Urine Nitrite Urine Bilirubin Urine Urobilinogen Ur Leukocyte Esterase Urine Glucose COVID-19 Source SARS-CoV-2 (PCR) 11/02/21 11/02/21 11/02/21 22:00 18:18 14:15 WBC RBC Hgb Hct MCV MCH MCHC RDW Plt Count MPV Immature Gran % Neutrophils % Lymphocytes % Monocytes % Eosinophils % Basophils % Nucleated RBC % Absolute Neutrophils Absolute Lymphocytes Absolute Monocytes Absolute Eosinophils Absolute Basophils PT INR D-Dimer VBG Lactate Sodium Potassium Chloride Carbon Dioxide Anion Gap BUN Creatinine Estimated GFR/1.73 m2 Glucose Calcium Magnesium Total Bilirubin AST ALT Alkaline Phosphatase Troponin I < 50 < 50 NT-Pro-B Natriuret Pep Total Protein Albumin Lipase TSH Urine Color Urine Clarity Urine pH Ur Specific [place] Urine Protein Urine Ketones Urine Blood Urine Nitrite Urine Bilirubin Urine Urobilinogen Ur Leukocyte Esterase Urine Glucose COVID-19 Source Nasal/Nares SARS-CoV-2 (PCR) Negative 11/02/21 11/02/21 11/02/21 13:00 11:03 10:58 WBC RBC Hgb Hct MCV MCH MCHC RDW Plt Count MPV Immature Gran % Neutrophils % Lymphocytes % Monocytes % Eosinophils % Basophils % Nucleated RBC % Absolute Neutrophils Absolute Lymphocytes Absolute Monocytes Absolute Eosinophils Absolute Basophils PT INR D-Dimer 1017 H VBG Lactate Sodium Potassium Chloride Carbon Dioxide Anion Gap BUN Creatinine Estimated GFR/1.73 m2 Glucose Calcium Magnesium Total Bilirubin AST ALT Alkaline Phosphatase Troponin I < 50 NT-Pro-B Natriuret Pep Total Protein Albumin Lipase TSH Urine Color Yellow Urine Clarity Clear Urine pH 5.5 Ur Specific [place] 1.015 Urine Protein Negative Urine Ketones Negative Urine Blood Negative Urine Nitrite Negative Urine Bilirubin Negative Urine Urobilinogen 0.2 Ur Leukocyte Esterase Negative Urine Glucose Negative COVID-19 Source SARS-CoV-2 (PCR) 11/02/21 11/02/21 11/02/21 10:25 10:25 10:25 WBC 6.99 RBC 3.23 L Hgb 10.0 L Hct 32.0 L MCV 99.1 H MCH 31.0 MCHC 31.3 L RDW 16.6 H Plt Count 192 MPV 10.7 Immature Gran % 0.3 Neutrophils % 69.6 Lymphocytes % 13.7 Monocytes % 15.6 Eosinophils % 0.7 Basophils % 0.1 Nucleated RBC % 0 Absolute Neutrophils 4.86 Absolute Lymphocytes 0.96 L Absolute Monocytes 1.09 H Absolute Eosinophils 0.05 Absolute Basophils 0.01 PT 10.8 INR 1.1 D-Dimer VBG Lactate Sodium Potassium Chloride Carbon Dioxide Anion Gap BUN Creatinine Estimated GFR/1.73 m2 Glucose Calcium Magnesium Total Bilirubin AST ALT Alkaline Phosphatase Troponin I NT-Pro-B Natriuret Pep 296 Total Protein Albumin Lipase TSH Urine Color Urine Clarity Urine pH Ur Specific [place] Urine Protein Urine Ketones Urine Blood Urine Nitrite Urine Bilirubin Urine Urobilinogen Ur Leukocyte Esterase Urine Glucose COVID-19 Source SARS-CoV-2 (PCR) 11/02/21 11/02/21 10:25 10:25 WBC RBC Hgb Hct MCV MCH MCHC RDW Plt Count MPV Immature Gran % Neutrophils % Lymphocytes % Monocytes % Eosinophils % Basophils % Nucleated RBC % Absolute Neutrophils Absolute Lymphocytes Absolute Monocytes Absolute Eosinophils Absolute Basophils PT INR D-Dimer VBG Lactate 1.0 Sodium 136 Potassium 4.3 Chloride 103 Carbon Dioxide 25.2 Anion Gap 7.8 BUN 30 H Creatinine 0.8 Estimated GFR/1.73 m2 >= 60.00 Glucose 153 H Calcium 8.5 Magnesium 2.4 Total Bilirubin 0.5 AST 15 ALT 31 Alkaline Phosphatase 90 Troponin I < 50 NT-Pro-B Natriuret Pep Total Protein 6.0 L Albumin 2.6 L Lipase 1019 H TSH 0.89 Urine Color Urine Clarity Urine pH Ur Specific [place] Urine Protein Urine Ketones Urine Blood Urine Nitrite Urine Bilirubin Urine Urobilinogen Ur Leukocyte Esterase Urine Glucose COVID-19 Source SARS-CoV-2 (PCR) 11/02/21 11:50 Blood Blood Culture - Pending 11/02/21 10:25 Blood Blood Culture - Pending Preliminary micro results at discharge 11/02/21 11:50 Blood Culture - Pending Blood 11/02/21 10:25 Blood Culture - Pending Blood [facility] All Active Problems Elevated lipase (Acute) Chest pain (Acute) Abdominal aortic aneurysm dissection (Acute) Left-sided chest pain (Acute) Abdominal pain (Acute) Acute cholecystitis (Acute) Sepsis (Acute) Weakness (Acute) Hepatic abscess (Acute) Orthostatic hypotension (Acute) History of cholecystectomy (Chronic) Contusion of rib (Acute) Pancreatitis (Chronic) Discharge planning issues (Acute) DVT prophylaxis (Acute) BPH (benign prostatic hyperplasia) (Chronic) Pulmonary hypertension (Acute) COPD (chronic obstructive pulmonary disease) (Chronic) Hypertension (Chronic) Hyperlipidemia (Chronic) Diabetes (Chronic) Allergy to codeine (Chronic) Allergy to penicillin (Chronic) CAD (coronary artery disease) (Chronic) Remote history of coronary disese, status post stent some 15 years ago, no history of [place]. CHF (congestive heart failure) (Chronic 10/21/13) Medical History Apical mural thrombus Atrial fib/flutter, transient Mena's palsy CAD (coronary artery disease) Cardiomyopathy CHF (congestive heart failure) COPD (chronic obstructive pulmonary disease) DM (diabetes mellitus) HTN (hypertension) Hypothyroidism Obesity (BMI 30.0-34.9) ORLIN (obstructive sleep apnea) Renal insufficiency Surgical History Appendectomy Colonoscopy - MAC (08/04/16) Hx of cardiac cath in [place] in the - unknown intervention [facility] [place] 2012 - clean coronaries, severe pulmonary hypertension, no prior stent found Family History Mother Cervical cancer Other Colon cancer Social History Smoking/Tobacco Use Status: Former Tobacco Use Smoking risk assessment performed?: Yes Drug use: Never Substance use type: does not use Details: states he has increased his alcohol use recently due to the heat Do you feel safe at home: Yes Do you feel safe in your relationship?: Yes
[2021-11-03] MEDS: Carvedilol 12.5 MG TAB PO (09:20)
[2021-11-03 09:53] VITALS: PULSE 106
== END 2021-11-03 10:07 | disposition home or self-care (01) ==
LOC: ER 14:21 → MS 15:18
PROVIDERS: Internal Medicine; Admitting Provider Family Medicine; Emergency Provider Student in an Organized Health Care Education/Training Program; PCP Family Medicine; Visit Provider Family Medicine
DX: I71.02 Dissection of abdominal aorta (principal); J44.9 Chronic obstructive pulmonary disease, unspecified; K75.0 Abscess of liver; E11.9 Type 2 diabetes mellitus without complications; I25.10 Atherosclerotic heart disease of native coronary artery without angina pectoris; I50.9 Heart failure, unspecified; I42.9 Cardiomyopathy, unspecified; I95.9 Hypotension, unspecified; I48.91 Unspecified atrial fibrillation; I11.0 Hypertensive heart disease with heart failure; E03.9 Hypothyroidism, unspecified; Z23 Encounter for immunization
CPT/HCPCS: 36415; 74177; 80048; 80053; 83690; 87040; 87635; 90662; 93005; 96360; 96361; 99285; 71045; 71260; 81003; 83605; 83735; 83880; 84443; 84484; 85025; 85379; 85610; 93010; 99217; 99220; G0378; J3490

== ENCOUNTER 2021-11-14 11:02 | Outpatient (REF) | payer MEDICARE, OTHER, SELFPAY ==
[2021-11-14 11:30] LABS: Magnesium 2.4 mg/dL (1.8-2.4)
[2021-11-14 11:44] LABS: Triglyceride 112 mg/dL (<150)
== END 2021-11-14 11:03 | disposition home or self-care (01) ==
LOC: LBN 11:02
PROVIDERS: Surgery; PCP Family Medicine; Visit Provider Family Medicine
DX: T81.43XD Infection following a procedure, organ and space surgical site, subsequent encounter (principal)
CPT/HCPCS: 83735; 84100; 84478

== ENCOUNTER 2021-11-17 19:02 | Outpatient (REF) | payer MEDICARE, OTHER, SELFPAY ==
[2021-11-17 17:50] LABS: Abs Immature Grans 0.04 10^3/uL (0.0-0.06); Absolute Basophil Count 0.02 10^3/uL (0.0-0.2); Absolute Eosinophil Count 0.02 10^3/uL (0.0-0.7); Absolute Neutrophil Count 7.38 10^3/uL (1.2-6.7); Basophils % 0.2; Eosinophils % 0.2; HCT 34.8 % (40.0-50.0); HGB 10.9 g/dL (13.5-17.5); Immature Grans % 0.4; Lymphocytes % 9.1; MCH 31.2 pg (27.0-33.0); MCHC 31.3 % (32.0-36.0); MCV 99.7 fL (80-95); Monocytes % 15.2; Neutrophils % 74.9; Nucleated RBC 0 %; Platelet Count 235 10^3/uL (130-400); RBC 3.49 10^6/uL (4.36-5.78); RDW 15.9 % (11.8-14.1); RDW-SD 58.4 fL; WBC 9.86 10^3/uL (4.4-10.8)
[2021-11-17 18:15] LABS: ALT 46 U/L (16-63); AST 23 U/L (15-37); Albumin 2.9 g/dL (3.4-5.0); Alkaline Phosphatase 109 U/L (46-116); Anion Gap 7.3 mmol/L (3-11); BUN 25 mg/dL (7-18); Bilirubin, Total 0.6 mg/dL (0.2-1.0); CO2 26.7 mmol/L (21.0-32.0); CREATININE 0.8 mg/dL (0.70-1.30); Calcium 8.4 mg/dL (8.5-10.1); Chloride 102 mmol/L (98-107); Glucose 150 mg/dL (74-106); Potassium 4.2 mmol/L (3.5-5.1); Sodium 136 mmol/L (136-145)
== END 2021-11-17 19:03 | disposition home or self-care (01) ==
LOC: LBN 19:02
PROVIDERS: PCP Family Medicine; Visit Provider Family Medicine
DX: T81.43XD Infection following a procedure, organ and space surgical site, subsequent encounter (principal)
CPT/HCPCS: 80053; 85025

== ENCOUNTER 2021-11-28 15:09 | Outpatient (REF) | payer MEDICARE, OTHER, SELFPAY ==
[2021-11-28 10:23] LABS: HCT 37.1 % (40.0-50.0); HGB 11.8 g/dL (13.5-17.5); MCHC 31.8 % (32.0-36.0); MCV 97.4 fL (80-95); MPV 10.6 fL (8.0-11.0); Platelet Count 226 10^3/uL (130-400); RBC 3.81 10^6/uL (4.36-5.78); RDW 14.7 % (11.8-14.1); RDW-SD 52.8 fL; WBC 7.16 10^3/uL (4.4-10.8)
[2021-11-28 10:40] LABS: ALT 36 U/L (16-63); AST 20 U/L (15-37); Albumin 2.9 g/dL (3.4-5.0); Alkaline Phosphatase 109 U/L (46-116); BUN 25 mg/dL (7-18); Bilirubin, Total 0.2 mg/dL (0.2-1.0); CREATININE 0.8 mg/dL (0.70-1.30); Calcium 8.5 mg/dL (8.5-10.1); Chloride 103 mmol/L (98-107); Glucose 199 mg/dL (74-106); Magnesium 2.1 mg/dL (1.8-2.4); Potassium 4.1 mmol/L (3.5-5.1); Sodium 138 mmol/L (136-145); Total Protein 6.1 g/dL (6.4-8.2); Triglyceride 113 mg/dL (<150)
[2021-11-28 10:53] LABS: C-Reactive Protein 1.36 mg/dL (0.0-0.3); PHOSPHORUS 4.1 mg/dL (2.6-4.7)
== END 2021-11-28 15:10 | disposition home or self-care (01) ==
LOC: LBN 15:09
PROVIDERS: PCP Family Medicine; Visit Provider Surgery
DX: R10.9 Unspecified abdominal pain (principal); Z02.89 Encounter for other administrative examinations; E03.9 Hypothyroidism, unspecified; E11.9 Type 2 diabetes mellitus without complications
CPT/HCPCS: 80053; 85027; 83735; 84100; 84478; 86140

== ENCOUNTER 2021-12-05 09:42 | Outpatient (REF) | payer MEDICARE, OTHER, SELFPAY ==
[2021-12-05 10:57] LABS: Abs Immature Grans 0.03 10^3/uL (0.0-0.06); Absolute Basophil Count 0.03 10^3/uL (0.0-0.2); Absolute Eosinophil Count 0.28 10^3/uL (0.0-0.7); Absolute Lymphocyte Count 1.47 10^3/uL (1.2-3.4); Absolute Neutrophil Count 3.95 10^3/uL (1.2-6.7); Basophils % 0.5; Eosinophils % 4.3; HCT 38.8 % (40.0-50.0); HGB 12.5 g/dL (13.5-17.5); Immature Grans % 0.5; Lymphocytes % 22.4; MCH 30.7 pg (27.0-33.0); MCHC 32.2 % (32.0-36.0); MCV 95.3 fL (80-95); MPV 11.1 fL (8.0-11.0); Monocytes % 12.2; Neutrophils % 60.1; Nucleated RBC 0 %; Platelet Count 235 10^3/uL (130-400); RBC 4.07 10^6/uL (4.36-5.78); RDW 14.2 % (11.8-14.1); RDW-SD 49.4 fL; WBC 6.56 10^3/uL (4.4-10.8)
[2021-12-05 11:14] LABS: ALT 38 U/L (16-63); AST 21 U/L (15-37); Albumin 3.2 g/dL (3.4-5.0); Alkaline Phosphatase 124 U/L (46-116); Anion Gap 9.2 mmol/L (3-11); BUN 19 mg/dL (7-18); Bilirubin, Total 0.4 mg/dL (0.2-1.0); CO2 27.8 mmol/L (21.0-32.0); CREATININE 0.9 mg/dL (0.70-1.30); Calcium 9.1 mg/dL (8.5-10.1); Chloride 102 mmol/L (98-107); Glucose 168 mg/dL (74-106); Magnesium 1.7 mg/dL (1.8-2.4); Sodium 139 mmol/L (136-145); Total Protein 6.3 g/dL (6.4-8.2); Triglyceride 101 mg/dL (<150)
[2021-12-05 11:30] LABS: C-Reactive Protein 0.66 mg/dL (0.0-0.3)
[2021-12-06 10:18] LABS: Prealbumin 19 mg/dL (20-40)
== END 2021-12-05 09:43 | disposition home or self-care (01) ==
LOC: LBN 09:42
PROVIDERS: PCP Family Medicine; Visit Provider Family Medicine
DX: R65.21 Severe sepsis with septic shock (principal); T81.43XD Infection following a procedure, organ and space surgical site, subsequent encounter; E11.9 Type 2 diabetes mellitus without complications
CPT/HCPCS: 80053; 83735; 84100; 84134; 84478; 85025; 86140

== ENCOUNTER 2021-12-12 14:36 | Outpatient (REF) | payer MEDICARE, OTHER, SELFPAY ==
[2021-12-12 12:54] LABS: ALT 33 U/L (16-63); AST 17 U/L (15-37); Albumin 3.1 g/dL (3.4-5.0); Alkaline Phosphatase 115 U/L (46-116); Anion Gap 7.7 mmol/L (3-11); BUN 20 mg/dL (7-18); Bilirubin, Total 0.3 mg/dL (0.2-1.0); CO2 28.3 mmol/L (21.0-32.0); CREATININE 0.8 mg/dL (0.70-1.30); Calcium 9.1 mg/dL (8.5-10.1); Chloride 104 mmol/L (98-107); Glucose 132 mg/dL (74-106); Magnesium 1.9 mg/dL (1.8-2.4); PHOSPHORUS 3.6 mg/dL (2.6-4.7); Potassium 3.8 mmol/L (3.5-5.1); Sodium 140 mmol/L (136-145); Total Protein 6.1 g/dL (6.4-8.2)
[2021-12-12 13:31] LABS: Abs Immature Grans 0.01 10^3/uL (0.0-0.06); Absolute Basophil Count 0.03 10^3/uL (0.0-0.2); Absolute Lymphocyte Count 1.65 10^3/uL (1.2-3.4); Absolute Monocyte Count 0.78 10^3/uL (0.1-0.8); Absolute Neutrophil Count 3.31 10^3/uL (1.2-6.7); Basophils % 0.5; Eosinophils % 4.9; HGB 12.1 g/dL (13.5-17.5); Immature Grans % 0.2; Lymphocytes % 27.1; MCHC 32.7 % (32.0-36.0); MCV 94.9 fL (80-95); MPV 10.9 fL (8.0-11.0); Monocytes % 12.8; Neutrophils % 54.5; Nucleated RBC 0 %; Platelet Count 195 10^3/uL (130-400); RDW-SD 48.3 fL; WBC 6.08 10^3/uL (4.4-10.8)
[2021-12-13 10:29] LABS: Lyme Ab w Rflx to Lyme Confirm Negative (Negative)
[2021-12-13 11:58] LABS: C-Reactive Protein 0.26 mg/dL (0.0-0.3)
[2021-12-14 10:33] LABS: Prealbumin 24 mg/dL (20-40)
[2021-12-15 23:57] LABS: Anaplasma phagocytophilum Negative (Negative); B. miyamotoi PCR Negative (Negative); Babesia divergens/MO-1 Negative (Negative); Babesia duncani Negative (Negative); Babesia microti Negative (Negative); Ehrlichia chaffeensis Negative (Negative); Ehrlichia ewingii/canis Negative (Negative); Ehrlichia muris eauclairensis Negative (Negative)
== END 2021-12-12 14:37 | disposition home or self-care (01) ==
LOC: NCHCN 14:36
PROVIDERS: PCP Family Medicine; Visit Provider Family Medicine
DX: R53.83 Other fatigue (principal); K81.0 Acute cholecystitis; R65.21 Severe sepsis with septic shock; B95.2 Enterococcus as the cause of diseases classified elsewhere; T81.43XD Infection following a procedure, organ and space surgical site, subsequent encounter
CPT/HCPCS: 80053; 87798; 83735; 84100; 84134; 85025; 86140; 86618

== ENCOUNTER 2021-12-27 14:35 | Outpatient (REF) | payer MEDICARE, OTHER, SELFPAY ==
[2021-12-27 11:18] LABS: HCT 41.6 % (40.0-50.0); HGB 13.5 g/dL (13.5-17.5); MCHC 32.5 % (32.0-36.0); MCV 95.6 fL (80-95); MPV 10.7 fL (8.0-11.0); Platelet Count 226 10^3/uL (130-400); RBC 4.35 10^6/uL (4.36-5.78); RDW 13.3 % (11.8-14.1); RDW-SD 46.8 fL; WBC 6.68 10^3/uL (4.4-10.8)
[2021-12-27 11:23] LABS: ESR 10 mm/hr (0-20)
[2021-12-27 11:28] LABS: ALT 27 U/L (16-63); AST 16 U/L (15-37); Albumin 3.4 g/dL (3.4-5.0); Alkaline Phosphatase 126 U/L (46-116); Anion Gap 6.5 mmol/L (3-11); BUN 14 mg/dL (7-18); Bilirubin, Total 0.4 mg/dL (0.2-1.0); C-Reactive Protein 0.49 mg/dL (0.0-0.3); CO2 30.5 mmol/L (21.0-32.0); Calcium 9.4 mg/dL (8.5-10.1); Chloride 107 mmol/L (98-107); Glucose 187 mg/dL (74-106); Potassium 4.8 mmol/L (3.5-5.1); Sodium 144 mmol/L (136-145); Total Protein 6.7 g/dL (6.4-8.2)
== END 2021-12-27 14:36 | disposition home or self-care (01) ==
LOC: NCHCN 14:35
PROVIDERS: PCP Family Medicine; Visit Provider Family Medicine
DX: T81.43XD Infection following a procedure, organ and space surgical site, subsequent encounter (principal); R53.83 Other fatigue
CPT/HCPCS: 80053; 85027; 85652; 86140

== ENCOUNTER 2022-01-10 14:41 | Outpatient (REF) | payer MEDICARE, OTHER, SELFPAY ==
[2022-01-10 14:50] LABS: HCT 42.6 % (40.0-50.0); HGB 13.8 g/dL (13.5-17.5); MCH 30.6 pg (27.0-33.0); MCHC 32.4 % (32.0-36.0); MCV 94.5 fL (80-95); MPV 10.7 fL (8.0-11.0); Platelet Count 217 10^3/uL (130-400); RBC 4.51 10^6/uL (4.36-5.78); RDW 13.2 % (11.8-14.1); RDW-SD 45.2 fL; WBC 6.98 10^3/uL (4.4-10.8)
[2022-01-10 14:55] LABS: ESR 45 mm/hr (0-20)
[2022-01-10 15:09] LABS: ALT 28 U/L (16-63); AST 17 U/L (15-37); Albumin 3.7 g/dL (3.4-5.0); Alkaline Phosphatase 141 U/L (46-116); Anion Gap 8.9 mmol/L (3-11); BUN 16 mg/dL (7-18); Bilirubin, Total 0.4 mg/dL (0.2-1.0); C-Reactive Protein 0.93 mg/dL (0.0-0.3); CO2 30.1 mmol/L (21.0-32.0); CREATININE 0.9 mg/dL (0.70-1.30); Calcium 9.3 mg/dL (8.5-10.1); Chloride 102 mmol/L (98-107); Glucose 141 mg/dL (74-106); Lipase 205 U/L (73-393); Potassium 3.7 mmol/L (3.5-5.1); Sodium 141 mmol/L (136-145); Total Protein 7.1 g/dL (6.4-8.2)
== END 2022-01-10 14:42 | disposition home or self-care (01) ==
LOC: NCHCN 14:41
PROVIDERS: PCP Family Medicine; Visit Provider Family Medicine
DX: R10.9 Unspecified abdominal pain (principal); K80.61 Calculus of gallbladder and bile duct with cholecystitis, unspecified, with obstruction
CPT/HCPCS: 80053; 83690; 85027; 85652; 86140

== ENCOUNTER 2022-01-11 10:23 | Outpatient (CLI) | payer MEDICARE, OTHER, SELFPAY ==
[2022-01-11] MEDS: Omnipaque 350 MG/ML 50 ML BTL PO (10:39)
[2022-01-11] MEDS: Breeza Beverage 473 ML BTL 946 ML PO (10:40)
[2022-01-11] MEDS: Omnipaque 350 MG/ML 100 ML BTL IJ (11:41)
[2022-01-11] MEDS: Normal Saline Flush 10 ML SYR IVP (11:50)
--- NOTE | 2022-01-11 11:50 | DI.CT_ITS ---
Exam(s) CT ABDOMEN PELVIS W EXAM: CT ABDOMEN PELVIS W CLINICAL HISTORY: ABD PAIN, R10.9,CHOLECYSTITIS,K80.61,LIVER ABSCESS,K75.0,GBN ABSCESS,K81.0. TECHNIQUE: Imaging Protocol: Axial computed tomography images with coronal and sagittal reformatted images were created and reviewed CONTRAST MATERIAL: Intravenous: Omnipaque 350 Contrast volume:100 ml Oral: yes / COMPARISON: CT CT CHEST/ABD/PEL W from 11/02/2021 FINDINGS: ABDOMEN: Lung Bases: Normal where visualized. Liver: Normal density. No measurable mass. No evidence of abscess. Gallbladder and biliary tract: Status post cholecystectomy. Previously noted gallbladder fossa drain has been removed in the interval. Stent noted in common bile duct. Some oral contrast extends into the common duct. Mild pneumobilia. Pancreas: Normal density, no abnormal calcifications or inflammatory process. No visible mass. Spleen: Normal. Kidneys: Normal size, contour and axis. No radiodense stones or obstructive uropathy. No masses seen. Adrenal glands: No masses seen. Abdominal Aorta: Atherosclerotic changes. Stable mild dilatation T prince distally to 2.8 cm. PELVIS: Bladder: No gross wall thickening. No calculi.No focal mass. Bowel: No obstruction or bowel wall thickening. .Moderate quantity of stool. Peritoneal cavity: No ascites, collection or mesenteric inflammatory response. Large right inguinal h ernia containing a portion of the urinary bladder. Stable appearance. Small fatty containing left i nguinal hernia. Bones: Within normal limits for age. Reproductive organs: Within normal limits. Lymph nodes: Unremarkable. Impression: No change in appearance of stent and common bile duct. Small amount of pneumobilia. No evidence of abscess. Stable appearance of right inguinal hernia containing a portion of the urinary bladder. St able atherosclerotic changes of the aorta with mild aneurysmal dilatation. RADIATION DOSE DELIVERED: 958.95mGy.cm Total DLP DATA REPOSITORY: All CT scans at this facility are submitted to the National Radiology Data Registry (NRDR) Dose Index Registry (DIR) with the [employer] (ACR). RADIATION OPTIMIZATION: All CT scans at this facility use at least one of these dose optimization te chniques: automated exposure control; mA and/or kV adjustment per patient size (includes targeted exa ms where dose is matched to clinical indication); or iterative reconstruction.
== END 2022-01-11 10:43 ==
PROVIDERS: PCP Family Medicine; Visit Provider Family Medicine
DX: R10.9 Unspecified abdominal pain (principal); K80.61 Calculus of gallbladder and bile duct with cholecystitis, unspecified, with obstruction; K75.0 Abscess of liver; K40.90 Unilateral inguinal hernia, without obstruction or gangrene, not specified as recurrent
CPT/HCPCS: 74177; J3490; Q9967

== ENCOUNTER 2022-01-20 15:02 | Outpatient (REF) | payer MEDICARE, OTHER, SELFPAY ==
[2022-01-20 20:26] LABS: ESR 42 mm/hr (0-20)
[2022-01-20 20:33] LABS: Hemoglobin A1C 7.1 % (<5.7)
[2022-01-23 10:42] LABS: PSA, Screening 1.4 ng/mL (0.0-6.5)
== END 2022-01-20 15:03 | disposition home or self-care (01) ==
LOC: NCHCN 15:02
PROVIDERS: PCP Family Medicine; Visit Provider Family Medicine
DX: E11.9 Type 2 diabetes mellitus without complications (principal); R21 Rash and other nonspecific skin eruption; Z12.5 Encounter for screening for malignant neoplasm of prostate
CPT/HCPCS: 84153; 85652; 83036; 86140

== ENCOUNTER 2022-03-16 11:12 | Outpatient (CLI) | payer MEDICARE, OTHER, SELFPAY ==
[2022-03-16 11:17] VITALS: BP 146/73; PULSE 82; RESP 16; TEMP 36.3; O2SAT 98
[2022-03-16 12:28] VITALS: BP 135/78; PULSE 85; RESP 20; TEMP 36.5; O2SAT 98
== END 2022-03-16 11:13 | disposition home or self-care (01) ==
LOC: INF 11:16
PROVIDERS: PCP Family Medicine; Visit Provider Family Medicine
DX: U07.1 COVID-19 (principal)
CPT/HCPCS: 96374; Q0222

== ENCOUNTER 2022-04-07 14:26 | Outpatient (REF) | payer MEDICARE, OTHER, SELFPAY ==
--- NOTE | 2022-04-07 11:10 | SKI_PTH ---
PATIENT: Candelario Chang LOC: NCN #:[id number] AGE/SX: 76/M ROOM: RE04/07/[address]: Deepa Oliva V : 1945 BED: DIS: 04/07/2022 SPEC #: [id number] RECD: 04/07/22 14:51 STATUS: SO ORTIZ #: [id number] POP: 04/07/22 11:[address]: Deepa Oliva V DEPT: Surgical Specimen RECD BY: Estefany Ward Tissues: 1 - SKIN BIOPSY(SHAVE/PUNCH) Procedures: SKIN LEVEL 4 Comments: [id number]
== END 2022-04-07 14:27 | disposition home or self-care (01) ==
LOC: NCHCN 14:26
PROVIDERS: PCP Family Medicine; Visit Provider Family Medicine
DX: L30.8 Other specified dermatitis (principal)
CPT/HCPCS: 88305

== ENCOUNTER 2022-06-16 17:55 | Outpatient (REF) | payer MEDICARE, OTHER, SELFPAY ==
[2022-06-16 19:39] LABS: HCT 38.6 % (40.0-50.0); HGB 13.1 g/dL (13.5-17.5); MCH 32.6 pg (27.0-33.0); MCHC 33.9 % (32.0-36.0); MCV 96 fL (80-95); MPV 10.6 fL (8.0-11.0); Platelet Count 196 10^3/uL (130-400); RBC 4.02 10^6/uL (4.36-5.78); RDW 12.8 % (11.8-14.1); WBC 7.48 10^3/uL (4.4-10.8)
[2022-06-16 20:06] LABS: ALT 24 U/L (16-63); AST 19 U/L (15-37); Albumin 3.8 g/dL (3.4-5.0); Alkaline Phosphatase 104 U/L (46-116); Anion Gap 6.4 mmol/L (3-11); BUN 15 mg/dL (7-18); Bilirubin, Total 0.6 mg/dL (0.2-1.0); CO2 29.6 mmol/L (21.0-32.0); CREATININE 1.1 mg/dL (0.70-1.30); Chloride 104 mmol/L (98-107); Potassium 4.1 mmol/L (3.5-5.1); Sodium 140 mmol/L (136-145); TSH (W/Ref FT4) 2.49 uIU/mL (0.36-3.74); Total Protein 7.1 g/dL (6.4-8.2)
[2022-06-16 20:13] LABS: Calcium 8.8 mg/dL (8.5-10.1); Glucose 125 mg/dL (74-106)
== END 2022-06-16 17:56 | disposition home or self-care (01) ==
LOC: NCHCN 17:55
PROVIDERS: PCP Family Medicine; Visit Provider Family Medicine
DX: E03.9 Hypothyroidism, unspecified (principal); D64.9 Anemia, unspecified; E11.9 Type 2 diabetes mellitus without complications; R07.9 Chest pain, unspecified; E53.8 Deficiency of other specified B group vitamins; I42.9 Cardiomyopathy, unspecified
CPT/HCPCS: 80053; 85027; 84443

== ENCOUNTER → 2022-08-02 13:47 | Outpatient (CLI) | payer MEDICARE, OTHER, SELFPAY ==
--- NOTE | 2022-08-02 | DI.RAD_ITS ---
Exam(s) XR KNEE RT 3V AP,LAT,FRANCESCA EXAM: XR KNEE RT 3V AP,LAT,FRANCESCA CLINICAL HISTORY: RT KNEE JOINT PAIN M25.561. TECHNIQUE: 2D digital imaging was performed. COMPARISON: No exams were available for comparison FINDINGS: 3 views In lateral aspect of the knee there are strand like os os ossific densities adjacent to the outer asp ect of the lateral femoral condyle. There is no typical Segond-type fragment off of the lateral tibi al plateau. Nevertheless, there is a joint effusion and therefore there is a significant internal de rangement. Follow-up MRI recommended. IMPRESSION: DATA REPOSITORY: RADIATION DOSE DELIVERED:
== END ==
PROVIDERS: PCP Family Medicine; Visit Provider Family Medicine
DX: M25.561 Pain in right knee (principal); M25.461 Effusion, right knee; M23.8X1 Other internal derangements of right knee
CPT/HCPCS: 73562

== ENCOUNTER → 2022-08-15 01:43 | Outpatient (CLI) | payer MEDICARE, OTHER, SELFPAY ==
--- NOTE | 2022-08-15 | DI.MRI_ITS ---
Exam(s) MR LOWER JOINT RT WO EXAM: MR LOWER JOINT RT WO CLINICAL HISTORY: RT KNEE PAIN, M25.561, EFFUSION ON XR,S/P FALL, LATERAL JOINT INSTABILITY. TECHNIQUE: Multiplanar multisequence MRI was performed. COMPARISON: CR XR KNEE RT 3V AP,LAT,FRANCESCA from 08/02/2022 FINDINGS: BONES: There is no fracture or contusion pattern. JOINTS: Articular cartilage is unremarkable. There is a small joint effusion. TENDONS: Extensor mechanism: Unremarkable. Medial retinaculum: Unremarkable. Lateral retinaculum: Unremarkable. Popliteus: Unremarkable. MUSCLES: Unremarkable. MENISCI: The medial meniscus is unremarkable. The lateral meniscus is unremarkable. SOFT TISSUES: Unremarkable. LIGAMENTS: Anterior Cruciate: There is hyperintense signal seen within the ACL suggesting a sprain. No evidence of a tear is seen. Posterior Cruciate: Unremarkable. Medial Collateral:Unremarkable. Lateral Collateral: Unremarkable. OTHER: IMPRESSION: 1. There is no evidence of a meniscal or ligament tear. 2. ACL sprain. 3. No evidence of a fracture. 4. Small joint effusion. DATA REPOSITORY:
== END ==
PROVIDERS: PCP Family Medicine; Visit Provider Nurse Practitioner Family
DX: S83.511A Sprain of anterior cruciate ligament of right knee, initial encounter (principal); M25.461 Effusion, right knee; X58.XXXA Exposure to other specified factors, initial encounter
CPT/HCPCS: 73721

== ENCOUNTER 2023-05-14 15:09 | Emergency (ER) | payer MEDICARE, OTHER, SELFPAY ==
[2023-05-14] VITALS (61 sets, daily range): BP systolic 97–143; BP diastolic 64–93; PULSE 66–121; RESP 11–26; TEMP 36.8; O2SAT 88–100
--- NOTE | 2023-05-14 15:00 | RT.EKG_ITS ---
APPROVED REPORT Exam: Resting ECG Reason for Exam: rapid afib Patient Location: E HR:85 bpm ECG Measurements Heart Rate 85 AXIS MO 186 P -2 QRSd 130 QRS -106 QT 426 T 24 QTc 506 Conclusion Sinus rhythm...normal P axis, V-rate 60- 99 Right bundle branch block...QRSd>120, terminal axis(90,270)
--- NOTE | 2023-05-14 15:15 | DI.RAD_ITS ---
Exam(s) XR CHEST 2V PA LATERAL EXAM: XR CHEST 2V PA LATERAL CLINICAL HISTORY: CP TECHNIQUE: 2D digital imaging was performed of the chest. Two images were obtained. PA and lateral views were obtained. COMPARISON: CR,XR XR CHEST 2V PA LATERAL from 06/07/2020 FINDINGS: MEDIASTINUM: Normal. HEART: Normal. Cardiac pacemaker is in good position. PULMONARY VASCULATURE: Normal. LUNGS: Clear. PLEURAL SPACE: No pleural effusion or pneumothorax. BONE:Within normal limits for the patient's age. OTHER FINDINGS:Normal. IMPRESSION: No acute pulmonary findings. DATA REPOSITORY: RADIATION DOSE DELIVERED:
--- NOTE | 2023-05-14 15:29 | ED.GENADUL_ITS ---
Discharge Plan Disposition Patient Disposition: Home Condition: Stable Discharge Details Clinical Impression: Chest pain, Has run out of medications Primary Care Provider: Depea Oliva V ED Provider: Julianna Funes Home Meds and New Rx's Prescriptions: Continued tamsulosin 0.4 MG capsule 0.8 mg PO DAILY aspirin [Aspir-Low] 81 MG tablet,delayed release (DR/EC) 81 mg PO DAILY AM furosemide [Lasix] 80 MG tablet 80 mg PO DAILY ascorbic acid (vitamin C) [Vitamin C With Dejah Hips] 1,000 MG tablet 1 tab PO DAILY saw palmetto 500 MG capsule 500 mg PO DAILY cefpodoxime 200 mg tablet 200 mg PO BID ferrous sulfate 324 mg (65 mg iron) Tablet,Delayed Release (Dr/Ec) 324 mg PO DAILY Rx Instructions: ferrous gluconate magnesium oxide 400 MG tablet 400 mg PO DAILY Qty: 30 0RF fluoxetine [Prozac] 20 mg Capsule 20 mg PO DAILY levothyroxine [Synthroid] 50 mcg Tablet 25 mcg PO DAILY pantoprazole 20 mg Tablet,Delayed Release (Dr/Ec) 40 mg PO DAILY atorvastatin 40 mg Tablet 40 mg PO DAILY Rx Instructions: evening clopidogrel 75 mg Tablet 75 mg PO DAILY nitroglycerin [Nitrostat] 0.4 mg Tablet, Sublingual 0.4 mg SUBLINGUAL Q5-15M PRN polyethylene glycol 3350 17 gram powder in packet 17 g PO DAILY Patient Comments: MIX 1 PACKET WITH LIQUID AND TAKE BY MOUTH ONCE DAILY loratadine 10 mg Tablet 10 mg PO DAILY therapeutic multivitamin Tablet 1 tab PO DAILY cyanocobalamin (vitamin B-12) 1,000 mcg/mL Solution 1,000 mcg SUBCUT QWEEK carvedilol 12.5 mg tablet 12.5 mg PO BID ondansetron 4 mg tablet,disintegrating 4 mg PO PRN Saccharomyces boulardii [Florastor] 250 mg Capsule 250 mg PO BID Discharge Instructions Instructions: Chest Pain (ED) Additional Instructions: Your labs are reassuring here today. Your chest x-ray does not have any acute abnormalities. Your symptoms may be associated with you having missed medications and your faster heart rate. Your heart rate has improved with your typical medications. We are sending you home with 2 days worth of your medications. please take this as prescribed by your primary care. I am hoping that within the next 2 days your medications are on their way will be here. Please follow-up with your primary care in 1 week for reevaluation. Please discuss need for stress test. As we discussed, I am not sure if you have had one recently or when you are in [place]. If 1 has not been done recently, I would recommend an outpatient stress test and this can be ordered by her primary care. As we discussed, if you develop any recurrent chest pain, shortness of breath, sweating or other new/worsening symptom please seek care urgently once again. Referrals: Deepa Oliva MD [Primary Care Provider] - Discharge Data Discharge Date/Time-TO BE ENTERED AT DEPARTURE: 05/14/23 20:19 Medical Decision Making Magno is a pleasant 77 year old male, accompanied by his , with c/c of rapid a. fib. States he has hx of a.fib and that he has had intermittent CP x 24 hours, worse with exertion. Has attributed this to his a.fib as he is out of his metoprolol and amiodarone and has been x 3 days. reports that this is now coming in the mail. Has not missed his Eliquis or other medications. PMH quite significant, hx of CAD, AAA, HTN, hepatic abscess, pancreatitis, pulmonary HTN, CHF, COPD, DM. Has had sents, was admitted this past spring in [place] at which time pacemaker placed. Patient and spend section of the year in [place] where he sees cardiology. Magno states that he has had elevated HR, HR typically around 50- 60, but i thas been fastter since the cessation of his medication. No CP currently. denies SOB. No pain in abdomen or radiating to the back. Denies feeling pre-syncopal. On exam, paitent appears non-toxic. Joking with staff. Lungs are clear, normal cardiac exam. Pacer without evidence of infecion, site appears to have healed well. Nursing staff is interigating. Abdomen benign. No pulsattile mass or pain. 2+ distal pulses in LE, no edema. Considered dysrhymia, altthough currently in sinus, ACS, HF vs. other. Will give his typical dosing of medications and obtain ECG, CXR, labs. Discussed with patient. He does take baby ASA, will augment. ECG reviewed by Dr. Roblero, no acute ischemic pathology noted. Labs reviewed, no leukocytosis. Stable H&H. CMP without significant abnormality. BNP is minimally elevated at 409 which appears to be baseline for the patient. The troponin is within normal limits, plan to repeat. Patient going for x-ray. FINDINGS: Cardiac pacemaker leads grossly intact Lungs: Unremarkable. No consolidation. Pleural spaces: Unremarkable. No pleural effusion. No pneumothorax. Heart/Mediastinum: Unremarkable. No cardiomegaly. Bones/joints: Unremarkable. IMPRESSION: No acute findings. Repeat troponin WNL. HR now does to normal range for patient. He is resting comfortably, asymptomatic, requesting discharge. He and I dsicussed admission, risk for missed ACS vs. outpatient management. He would prefer outpatient management. He was recently admitted for cardiac issues when in [place]. Unclear if they did a stress testt. With this in mind, I will hold off on ordering, will ask that he discuss further with his PCP. Will give meds to go home with in event it has not arrived by tomorrow morning. Strict return precautions given. at bedside, very attentive and caring- able to bring back if he worsens. All of their questions adn concerns were addressed, they are in agreement with this plan. HPI General Date/Time Provider Initiated Documentation: 05/14/23 15:15 . Limitations to Documentation: no limitations . Information obtained by: patient, family, RN notes reviewed and old records reviewed . History of Present Illness 77 year old M presents to the emergency department with the chief complaint of concerned for rapid atrial fibrillation, intermittent chest pain, described as mild, Quality is described as aching, and is localized to the chest. Patient reports no radiation. Patient started experiencing this day(s) (1) and it has been intermittent. Immobilization improves symptom(s), Movement worsens symptoms . Patient notes no other symptoms.. Patient did receive the following treatments prior to arrival, none Related Data Home Medications Medication Instructions Recorded Confirmed aspirin 81 mg tablet,delayed 81 mg PO DAILY AM 09/01/13 11/02/21 release (Aspir-Low) tamsulosin 0.4 mg capsule 0.8 mg PO DAILY 09/01/13 11/02/21 furosemide 80 mg tablet (Lasix) 80 mg PO DAILY 11/11/13 11/02/21 ascorbic acid (vitamin C) 1,000 mg 1 tab PO DAILY 01/21/15 11/02/21 tablet (Vitamin C With Dejah Hips) saw palmetto 500 mg capsule 500 mg PO DAILY 01/21/15 11/02/21 magnesium oxide 400 mg (241.3 mg 400 mg PO DAILY ##30 03/28/17 10/13/21 magnesium) tablet atorvastatin 40 mg tablet 40 mg PO DAILY 05/13/21 11/02/21 clopidogrel 75 mg tablet 75 mg PO DAILY 05/13/21 11/02/21 fluoxetine 20 mg capsule (Prozac) 20 mg PO DAILY 05/13/21 11/02/21 levothyroxine 50 mcg tablet 25 mcg PO DAILY 05/13/21 11/02/21 (Synthroid) nitroglycerin 0.4 mg sublingual 0.4 mg sublingual Q5-15M PRN 05/13/21 11/02/21 tablet (Nitrostat) pantoprazole 20 mg tablet,delayed 40 mg PO DAILY 05/13/21 11/02/21 release loratadine 10 mg tablet 10 mg PO DAILY 08/03/21 11/02/21 polyethylene glycol 3350 17 gram 17 g PO DAILY 08/03/21 11/02/21 oral powder packet therapeutic multivitamin 1 tab PO DAILY 08/03/21 11/02/21 cyanocobalamin (vitamin B-12) 1,000 mcg subcut QWEEK 08/05/21 11/02/21 1,000 mcg/mL injection solution Saccharomyces boulardii 250 mg 250 mg PO BID 09/12/21 10/02/21 capsule (Florastor) carvedilol 12.5 mg tablet 12.5 mg PO BID 09/12/21 11/02/21 ondansetron 4 mg disintegrating 4 mg PO PRN 09/12/21 tablet cefpodoxime 200 mg tablet 200 mg PO BID 10/02/21 11/02/21 ferrous sulfate 324 mg (65 mg 324 mg PO DAILY 10/02/21 11/02/21 iron) tablet,delayed release Previous Rx's Medication Instructions Recorded magnesium oxide 400 mg (241.3 mg 400 mg PO DAILY ##30 03/28/17 magnesium) tablet Allergies Allergy/AdvReac Type Severity Reaction Status Date / Time Penicillins Allergy Severe Anaphylaxsi Unverified 11/02/21 10:21 s donepezil [From Aricept] Allergy Mild mild per Unverified 11/02/21 10:21 pcp chart adenosine Allergy Unverified 11/02/21 10:21 metformin [From Glucophage] Allergy per pcp Unverified 11/02/21 10:21 chart--moderate codeine AdvReac Intermediate Dizziness/L Unverified 11/02/21 10:21 ightheade General Stated Complaint: Chest Pain DANIEL: 2 Review of Systems Constitutional Constitutional: Reports as per HPI, Denies chills, Denies fever(s), Denies headache(s), Denies lethargy and Denies poor appetite Eyes Eyes: Denies change in vision ENT Ears, Nose, Mouth, and Throat: Denies dizziness and Denies headache(s) Cardiovascular Cardiovascular: Reports as per HPI, Denies dyspnea and Denies dyspnea on exertion Respiratory Respiratory: Reports as per HPI, Denies chest congestion, Denies cough, Denies pain on inspiration, Denies pain with cough, Denies dyspnea and Denies dyspnea on exertion Gastrointestinal Gastrointestinal: Reports as per HPI, Denies abdominal pain, Denies diarrhea, Denies nausea and Denies vomiting Genitourinary Genitourinary: Denies system reviewed and no additional complaints, except as documented (denies change in urinary habits) Musculoskeletal Musculoskeletal: Reports as per HPI and Denies back pain Integumentary/Breasts Skin/Breast: Reports as per HPI and Denies rash Neurologic Neurologic: Reports as per HPI, Denies dizziness and Denies headache(s) PFSH All Active Problems (Updated 05/14/23 @ 19:36 by BEKAH Plasencia) Chest pain (Acute) Has run out of medications (Acute) Elevated lipase (Acute) Chest pain (Acute) Abdominal aortic aneurysm dissection (Acute) Left-sided chest pain (Acute) Abdominal pain (Acute) Acute cholecystitis (Acute) Sepsis (Acute) Weakness (Acute) Hepatic abscess (Acute) Orthostatic hypotension (Acute) History of cholecystectomy (Chronic) Contusion of rib (Acute) Pancreatitis (Chronic) Discharge planning issues (Acute) DVT prophylaxis (Acute) BPH (benign prostatic hyperplasia) (Chronic) Pulmonary hypertension (Acute) COPD (chronic obstructive pulmonary disease) (Chronic) Hypertension (Chronic) Hyperlipidemia (Chronic) Diabetes (Chronic) Allergy to codeine (Chronic) Allergy to penicillin (Chronic) CAD (coronary artery disease) (Chronic) Remote history of coronary disese, status post stent some 15 years ago, no history of PA. CHF (congestive heart failure) (Chronic 10/21/13) Medical History Apical mural thrombus Atrial fib/flutter, transient Mena's palsy CAD (coronary artery disease) Cardiomyopathy CHF (congestive heart failure) COPD (chronic obstructive pulmonary disease) DM (diabetes mellitus) HTN (hypertension) Hypothyroidism Obesity (BMI 30.0-34.9) ORLIN (obstructive sleep apnea) Renal insufficiency Surgical History Appendectomy Colonoscopy - MAC (08/04/16) Hx of cardiac cath in [place] in the - unknown intervention [facility] [place] 2013 - clean coronaries, severe pulmonary hypertension, no prior stent found Family History Mother Cervical cancer Other Colon cancer Social History Smoking/Tobacco Use Status: Former Tobacco Use Smoking risk assessment performed?: Yes Drug use: Never Substance use type: does not use Details: states he has increased his alcohol use recently due to the heat Do you feel safe at home: Yes Do you feel safe in your relationship?: Yes Exam Const General: cooperative, healthy appearing, comfortable, no acute distress and well developed Nutritional Appearance: well nourished and overweight Orientation: alert, awake and oriented x3 HENMT Head: normal to inspection Ears: hearing grossly normal bilaterally Mouth: moist mucous membranes Chest Chest: abnormal inspection of the chest (pacer palpated left upper chest, no evidence of infection), normal palpation of entire chest wall, no crepitus and no tenderness Resp Effort & Inspection: normal respiratory effort, able to speak in complete se ntences and no respiratory distress Auscultation: clear to auscultation bilaterally, no rales, no rhonchi and no wheezes Cardio Rate: regular rate Rhythm: regular rhythm Heart Sounds: S1 normal and S2 normal GI Inspection: normal to inspection, no edema and non-distended Palpation: soft, no hepatosplenomegaly, no aortic enlargement, not firm, no guarding, not rigid and nontender Auscultation: normal bowel sounds Back/Spine/Pelvis Back: no CVA tenderness Thoracic/Lumbar Spine: thoracic and lumbar spine normal to inspection Skin General skin exam: no rashes or lesions noted Trauma: no lacerations or abrasions Neuro General: patient alert, patient awake and patient oriented x3 Cognition: normal cognition Speech: speech normal Gait: normal gait Extrem General: normal to inspection, capillary refill normal, no pedal edema, no calf tenderness, normal gait and other (2+ distal pulses) Psych Appearance: grossly normal and well kempt Mental Status: mental status grossly normal Speech and Movement: speech and movement normal Course Vital Signs Vital signs: Vital Signs Temperature 36.8 C 05/14/23 15:16 Pulse 90 05/14/23 15:16 Respiratory Rate 20 05/14/23 15:16 Pulse Oximetry 100 05/14/23 15:16 Temperature 36.8 C 05/14/23 15:16 Temperature Source Oral 05/14/23 15:16 Pulse 90 05/14/23 15:16 Respiratory Rate 20 05/14/23 15:16 Blood Pressure Position Sitting 05/14/23 15:16 Pulse Oximetry 100 05/14/23 15:16 Oxygen Delivery Method Room Air 05/14/23 15:16 Oxygen Flow Rate 0 05/14/23 15:16
[2023-05-14] MEDS: Aspirin 81 MG CHEW 243 MG CH (15:50)
[2023-05-14] MEDS: Metoprolol 50 MG TAB PO (15:50)
[2023-05-14] MEDS: Amiodarone 200 MG TAB 100 MG PO (15:50)
[2023-05-14 15:51] LABS: Abs Immature Grans 0.02 10^3/uL (0.0-0.06); Absolute Basophil Count 0.03 10^3/uL (0.0-0.2); Absolute Eosinophil Count 0.24 10^3/uL (0.0-0.7); Absolute Lymphocyte Count 1.47 10^3/uL (1.2-3.4); Absolute Monocyte Count 0.89 10^3/uL (0.1-0.8); Absolute Neutrophil Count 5.81 10^3/uL (1.2-6.7); Basophils % 0.4; Eosinophils % 2.8; HCT 41.7 % (40.0-50.0); HGB 14.9 g/dL (13.5-17.5); Immature Grans % 0.2; Lymphocytes % 17.4; MCH 34.7 pg (27.0-33.0); MCHC 35.7 % (32.0-36.0); MCV 97 fL (80-95); Monocytes % 10.5; Neutrophils % 68.7; Platelet Count 218 10^3/uL (130-400); RDW 12.8 % (11.8-14.1); RDW-SD 45.4 fL; WBC 8.46 10^3/uL (4.4-10.8)
[2023-05-14 16:14] LABS: ALT 35 U/L (16-63); Albumin 3.9 g/dL (3.4-5.0); Alkaline Phosphatase 110 U/L (46-116); Anion Gap 11.3 mmol/L (3-11); BUN 15 mg/dL (7-18); Bilirubin, Total 0.5 mg/dL (0.2-1.0); CO2 27.7 mmol/L (21.0-32.0); CREATININE 1.2 mg/dL (0.70-1.30); Calcium 9.6 mg/dL (8.5-10.1); Chloride 100 mmol/L (98-107); Glucose 181 mg/dL (74-106); Magnesium 2.1 mg/dL (1.8-2.4); NT-proBNP 409 pg/mL (<300); Potassium 3.9 mmol/L (3.5-5.1); Sodium 139 mmol/L (136-145); Total Protein 7.8 g/dL (6.4-8.2); Troponin I < 50 ng/L (<or=60)
[2023-05-14 16:34] LABS: AST 21 U/L (15-37)
--- NOTE | 2023-05-14 16:53 | DI.VRAD_ITS ---
PROCEDURE INFORMATION: Exam: XR Chest Exam date and time: 05/14/2023 4:38 PM Age: 77 years old Clinical indication: Pain; Chest pressure; Prior surgery; Surgery date: 6+ months; Surgery type: Pace maker; Patient HX: Cp TECHNIQUE: Imaging protocol: Radiologic exam of the chest. Views: 2 views. COMPARISON: CT CHEST/ABD/PEL W 11/02/2021 11:50 AM FINDINGS: Cardiac pacemaker leads grossly intact Lungs: Unremarkable. No consolidation. Pleural spaces: Unremarkable. No pleural effusion. No pneumothorax. Heart/Mediastinum: Unremarkable. No cardiomegaly. Bones/joints: Unremarkable. IMPRESSION: No acute findings. Dictated and Authenticated by: Christiano Wagner MD. Ordering:LAVELL Levine MD
[2023-05-14 19:04] LABS: Troponin I < 50 ng/L (<or=60)
[2023-05-14] MEDS: Amiodarone 200 MG TAB PO (20:08)
[2023-05-14] MEDS: Metoprolol CR 50 MG TABCR 100 MG PO (20:10)
== END 2023-05-14 20:19 | disposition home or self-care (01) ==
PROVIDERS: Emergency Provider Physician Assistant; PCP Family Medicine
DX: R07.9 Chest pain, unspecified (principal); I48.91 Unspecified atrial fibrillation; R06.02 Shortness of breath; Z91.198 Patient's noncompliance with other medical treatment and regimen for other reason; I25.10 Atherosclerotic heart disease of native coronary artery without angina pectoris; I13.10 Hypertensive heart and chronic kidney disease without heart failure, with stage 1 through stage 4 chronic kidney disease, or unspecified chronic kidney disease; I50.9 Heart failure, unspecified; N18.9 Chronic kidney disease, unspecified; E11.22 Type 2 diabetes mellitus with diabetic chronic kidney disease; I71.40 Abdominal aortic aneurysm, without rupture, unspecified; I27.20 Pulmonary hypertension, unspecified; J44.9 Chronic obstructive pulmonary disease, unspecified; Z86.718 Personal history of other venous thrombosis and embolism; Z79.02 Long term (current) use of antithrombotics/antiplatelets; Z79.84 Long term (current) use of oral hypoglycemic drugs; Z95.5 Presence of coronary angioplasty implant and graft; Z79.899 Other long term (current) drug therapy
CPT/HCPCS: 80053; 93005; 99285; 71046; 83735; 83880; 84484; 85025; 93010; 99284

== ENCOUNTER 2023-05-29 10:40 | Outpatient (CLI) | payer MEDICARE, SELFPAY ==
[2023-05-29 11:02] LABS: Hemoglobin A1C 6.6 % (<5.7)
[2023-05-29 11:08] LABS: BUN 19 mg/dL (7-18); CREATININE 1.4 mg/dL (0.70-1.30); Calcium 9.3 mg/dL (8.5-10.1); Chloride 102 mmol/L (98-107); Estimated GFR 51.45 (mL/min/1.73m2); Glucose 161 mg/dL (74-106); Potassium 4.1 mmol/L (3.5-5.1); Sodium 139 mmol/L (136-145); TSH (W/Ref FT4) 4.94 uIU/mL (0.36-3.74)
[2023-05-29 11:38] LABS: FREE T4 0.83 ng/dL (0.76-1.46)
== END 2023-05-29 10:41 | disposition home or self-care (01) ==
LOC: LBO 10:40
PROVIDERS: PCP Family Medicine; Visit Provider Nurse Practitioner Adult Health
DX: I50.20 Unspecified systolic (congestive) heart failure (principal); E03.9 Hypothyroidism, unspecified; E11.9 Type 2 diabetes mellitus without complications; I42.9 Cardiomyopathy, unspecified; I48.91 Unspecified atrial fibrillation
CPT/HCPCS: 36415; 80048; 83036; 84439; 84443

== ENCOUNTER 2023-06-12 15:43 | Emergency (ER) | payer MEDICARE, SELFPAY ==
[2023-06-12] VITALS (30 sets, daily range): BP systolic 82–121; BP diastolic 40–73; PULSE 53–76; RESP 11–26; TEMP 36.6; O2SAT 90–100
--- NOTE | 2023-06-12 15:45 | RT.EKG_ITS ---
APPROVED REPORT Exam: Resting ECG Reason for Exam: chest pain Patient Location: E HR:72 bpm ECG Measurements Heart Rate 72 AXIS AR 219 P -35 QRSd 146 QRS -118 QT 454 T -24 QTc 498 Conclusion Sinus rhythm...normal P axis, V-rate 60- 99 Borderline prolonged AR interval...AR >212, V-rate 50- 90 Right bundle branch block...QRSd>120, terminal axis(90,270) Inferior infarct, age indeterminate...Q>35mS, T neg, II III aVF sinus rhythm, left axis, flattened t waves laterally
[2023-06-12 16:25] LABS: Abs Immature Grans 0.02 10^3/uL (0.0-0.06); Absolute Basophil Count 0.02 10^3/uL (0.0-0.2); Absolute Eosinophil Count 0.14 10^3/uL (0.0-0.7); Absolute Lymphocyte Count 0.84 10^3/uL (1.2-3.4); Absolute Monocyte Count 1.05 10^3/uL (0.1-0.8); Absolute Neutrophil Count 7.38 10^3/uL (1.2-6.7); Basophils % 0.2; Eosinophils % 1.5; HCT 39.7 % (40.0-50.0); HGB 13.5 g/dL (13.5-17.5); Immature Grans % 0.2; Lymphocytes % 8.9; MCH 33.8 pg (27.0-33.0); MCV 100 fL (80-95); MPV 9.8 fL (8.0-11.0); Monocytes % 11.1; Neutrophils % 78.1; Platelet Count 196 10^3/uL (130-400); RBC 3.99 10^6/uL (4.36-5.78); RDW-SD 46.7 fL; WBC 9.45 10^3/uL (4.4-10.8)
--- NOTE | 2023-06-12 16:30 | W.ED.GENAD ---
Discharge Plan Disposition Patient Disposition: Home Condition: Improving Discharge Details Clinical Impression: Chest pain, Dizziness Primary Care Provider: Deepa Oliva V ED Provider: Florinda Gupta Home Meds and New Rx's Prescriptions: Continued tamsulosin 0.4 MG capsule 0.8 mg PO DAILY aspirin [Aspir-Low] 81 MG tablet,delayed release (DR/EC) 81 mg PO DAILY AM furosemide [Lasix] 80 MG tablet 80 mg PO DAILY ascorbic acid (vitamin C) [Vitamin C With Dejah Hips] 1,000 MG tablet 1 tab PO DAILY saw palmetto 500 MG capsule 500 mg PO DAILY cefpodoxime 200 mg tablet 200 mg PO BID ferrous sulfate 324 mg (65 mg iron) Tablet,Delayed Release (Dr/Ec) 324 mg PO DAILY Rx Instructions: ferrous gluconate magnesium oxide 400 MG tablet 400 mg PO DAILY Qty: 30 0RF fluoxetine [Prozac] 20 mg Capsule 20 mg PO DAILY levothyroxine [Synthroid] 50 mcg Tablet 25 mcg PO DAILY pantoprazole 20 mg Tablet,Delayed Release (Dr/Ec) 40 mg PO DAILY atorvastatin 40 mg Tablet 40 mg PO DAILY Rx Instructions: evening clopidogrel 75 mg Tablet 75 mg PO DAILY nitroglycerin [Nitrostat] 0.4 mg Tablet, Sublingual 0.4 mg SUBLINGUAL Q5-15M PRN polyethylene glycol 3350 17 gram powder in packet 17 g PO DAILY Patient Comments: MIX 1 PACKET WITH LIQUID AND TAKE BY MOUTH ONCE DAILY loratadine 10 mg Tablet 10 mg PO DAILY therapeutic multivitamin Tablet 1 tab PO DAILY cyanocobalamin (vitamin B-12) 1,000 mcg/mL Solution 1,000 mcg SUBCUT QWEEK carvedilol 12.5 mg tablet 12.5 mg PO BID ondansetron 4 mg tablet,disintegrating 4 mg PO PRN Saccharomyces boulardii [Florastor] 250 mg Capsule 250 mg PO BID metoprolol succinate 50 mg Tablet Extended Release 24 Hr 50 mg PO 1XD ropinirole 0.5 mg tablet 0.5 mg PO 3XD Patient Comments: Take 1 tablet by mouth three times a day Entresto 24-26 mg Tablet 12 - 13 tab PO 2XD Rx Instructions: breaks 1 tab in half, takes halves at morning and night. Discharge Instructions Instructions: Chest Pain (ED), Dizziness (ED) Additional Instructions: Please follow-up with your chairlift operator and litigation claim representative as previously scheduled. I did place a referral for you for our local litigation claim representative if they are able to get you in sooner. At this time there is no evidence for acute heart attack. Take the nausea medication as previously prescribed. Please be cautious when taking the nitroglycerin as this seems to drop your blood pressure. Follow up with primary care provider in 3-5 days. Return to ED sooner if any worsening or concerns. Increase oral fluids. Referrals: Moshe Elias MD [MD CONSULTING PHYSICIAN] - 2 weeks ([employer] discussion) Medical Decision Making 77-year-old male presents to the ER with a chief complaint of chest pain which began last night around 7 PM. It has been intermittent, it began again around 12:30 PM took a sublingual nitro at 1500 which dropped his blood pressure to 90/70 per his , he began with dizziness headache. Upon arrival he has chest pain around 5 out of 10. He does have a Medtronic ICD device which was placed in February 2023. 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 He is also had a cardiac catheterization. 1608: EKG was reviewed by Dr. Meet Justice and myself ER attending, right bundle branch block, old EKG available for review. No obvious STEMI noted. Cardiac work-up ordered including serial troponins, proBNP due to history of CHF and dizziness, chest x-ray. At the time of my evaluation he is complaining of chest pain 5 out of 10 his blood pressure currently is 114/99, will give an additional 0.4 sublingual nitro. He does take clopidogrel daily and 81 mg of aspirin. I also did order interrogation of his defibrillator device. 1653: Informed by staff veterinarian that patient's blood pressure is 100/68, he is becoming nauseous and states that his abdomen is starting to feel bloated. He does have lower extremity pallor. Labs show slightly anemic, white blood cells 3.99 hematocrit 39.7 hemoglobin 13.5 MCV is 100 MCH is 33.8, he is unable to tell me if he has had diarrhea or bloody stools, platelets are 196. Zofran 4 mg IV ordered, initial troponin within normal limits, proBNP 294 250 cc bolus ordered, CT chest abdomen pelvis with IV contrast ordered to rule out AAA. Differential diagnosis includes CAD, bowel obstruction, gastroenteritis, GI bleed vasovagal syndrome from nitro CT chest abdomen pelvis with within normal limits nothing acute. Stable repair to aortic dissection. On patient reevaluation he reports he feels much better. Patient given Zofran to go. Instructed to follow-up with cardiology or electrophysiology regarding his ICD. He does know that there is an issue with the lead. Medtronic ICD pacemaker interrogated, no events noted. Serial troponins within normal limits, EKG is unchanged. Patient is chest pain-free at this time. Discussed findings with patient and family who verbalized understanding. They feel comfortable going home. Discussed strict return instructions referral given for Dr. Elias. Instructed to be cautious when taking nitro due to drop in blood pressure. This text was generated using [email or web address] system, please disregard any oddities of phrase or misspellings. Medical Records Medical records reviewed: Yes I reviewed the patient's medical records. Lab Data Lab results reviewed: Yes I reviewed the patient's lab results. Labs: Laboratory Tests Range/Units 06/12/23 06/12/23 06/12/23 16:20 16:20 16:20 WBC (4.4-10.8) 10^3/uL 9.45 RBC (4.36-5.78) 10^6/uL 3.99 L Hgb (13.5-17.5) g/dL 13.5 Hct (40.0-50.0) % 39.7 L MCV (80-95) fL 100 H MCH (27.0-33.0) pg 33.8 H MCHC (32.0-36.0) % 34.0 RDW (11.8-14.1) % 13.0 Plt Count (130-400) 10^3/uL 196 MPV (8.0-11.0) fL 9.8 Immature Gran % 0.2 Neutrophils % 78.1 Lymphocytes % 8.9 Monocytes % 11.1 Eosinophils % 1.5 Basophils % 0.2 Nucleated RBC % (0.0-0.3) % 0.0 Absolute Neutrophils (1.2-6.7) 10^3/uL 7.38 H Absolute Lymphocytes (1.2-3.4) 10^3/uL 0.84 L Absolute Monocytes (0.1-0.8) 10^3/uL 1.05 H Absolute Eosinophils (0.0-0.7) 10^3/uL 0.14 Absolute Basophils (0.0-0.2) 10^3/uL 0.02 PT (9.3-11.0) sec 9.9 INR (0.9-1.1) 1.0 APTT (21.5-31.9) sec 25.0 Sodium (136-145) mmol/L 139 Potassium (3.5-5.1) mmol/L 3.8 Chloride (98-107) mmol/L 102 Carbon Dioxide (21.0-32.0) mmol/L 27.7 Anion Gap (3-11) mmol/L 9.3 BUN (7-18) mg/dL 18 Creatinine (0.70-1.30) mg/dL 1.1 Est GFR (CKD-EPI 2020) (mL/min/1.73m2) 68.71 Glucose (74-106) mg/dL 123 H Calcium (8.5-10.1) mg/dL 9.1 Magnesium (1.8-2.4) mg/dL 1.9 Total Bilirubin (0.2-1.0) mg/dL 0.7 AST (15-37) U/L 36 ALT (16-63) U/L 56 Alkaline Phosphatase (46-116) U/L 119 H Troponin I (<or=60) ng/L < 50 NT-Pro-B Natriuret Pep (<300) pg/mL Total Protein (6.4-8.2) g/dL 7.2 Albumin (3.4-5.0) g/dL 3.8 Range/Units 06/12/23 06/12/23 16:20 19:00 WBC (4.4-10.8) 10^3/uL RBC (4.36-5.78) 10^6/uL Hgb (13.5-17.5) g/dL Hct (40.0-50.0) % MCV (80-95) fL MCH (27.0-33.0) pg MCHC (32.0-36.0) % RDW (11.8-14.1) % Plt Count (130-400) 10^3/uL MPV (8.0-11.0) fL Immature Gran % Neutrophils % Lymphocytes % Monocytes % Eosinophils % Basophils % Nucleated RBC % (0.0-0.3) % Absolute Neutrophils (1.2-6.7) 10^3/uL Absolute Lymphocytes (1.2-3.4) 10^3/uL Absolute Monocytes (0.1-0.8) 10^3/uL Absolute Eosinophils (0.0-0.7) 10^3/uL Absolute Basophils (0.0-0.2) 10^3/uL PT (9.3-11.0) sec INR (0.9-1.1) APTT (21.5-31.9) sec Sodium (136-145) mmol/L Potassium (3.5-5.1) mmol/L Chloride (98-107) mmol/L Carbon Dioxide (21.0-32.0) mmol/L Anion Gap (3-11) mmol/L BUN (7-18) mg/dL Creatinine (0.70-1.30) mg/dL Est GFR (CKD-EPI 2020) (mL/min/1.73m2) Glucose (74-106) mg/dL Calcium (8.5-10.1) mg/dL Magnesium (1.8-2.4) mg/dL Total Bilirubin (0.2-1.0) mg/dL AST (15-37) U/L ALT (16-63) U/L Alkaline Phosphatase (46-116) U/L Troponin I (<or=60) ng/L < 50 NT-Pro-B Natriuret Pep (<300) pg/mL 294 Total Protein (6.4-8.2) g/dL Albumin (3.4-5.0) g/dL HPI General Date/Time Provider Initiated Documentation: 06/12/23 16:03. Limitations to Documentation: no limitations. Information obtained by: patient, family, RN notes reviewed and old records reviewed. HPI Narrative: 77-year-old male presents to the ER with a chief complaint of chest pain which began last night around 7 PM. It has been intermittent, it began again around 12:30 PM took a sublingual nitro at 1500 which dropped his blood pressure to 90/70 per his , he began with dizziness headache. Upon arrival he has chest pain around 5 out of 10. He does have a Medtronic ICD device which was placed in February 2023. 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 He is also had a cardiac catheterization. Related Data Home Medications Medication Instructions Recorded Confirmed aspirin 81 mg tablet,delayed 81 mg PO DAILY AM 09/01/13 06/12/23 release (Aspir-Low) tamsulosin 0.4 mg capsule 0.8 mg PO DAILY 09/01/13 06/12/23 furosemide 80 mg tablet (Lasix) 80 mg PO DAILY 11/11/13 06/12/23 ascorbic acid (vitamin C) 1,000 mg 1 tab PO DAILY 01/21/15 06/12/23 tablet (Vitamin C With Dejah Hips) saw palmetto 500 mg capsule 500 mg PO DAILY 01/21/15 11/02/21 magnesium oxide 400 mg (241.3 mg 400 mg PO DAILY ##30 03/28/17 10/13/21 magnesium) tablet atorvastatin 40 mg tablet 40 mg PO DAILY 05/13/21 06/12/23 clopidogrel 75 mg tablet 75 mg PO DAILY 05/13/21 11/02/21 fluoxetine 20 mg capsule (Prozac) 20 mg PO DAILY 05/13/21 06/12/23 levothyroxine 50 mcg tablet 25 mcg PO DAILY 05/13/21 06/12/23 (Synthroid) nitroglycerin 0.4 mg sublingual 0.4 mg sublingual Q5-15M PRN 05/13/21 06/12/23 tablet (Nitrostat) pantoprazole 20 mg tablet,delayed 40 mg PO DAILY 05/13/21 06/12/23 release loratadine 10 mg tablet 10 mg PO DAILY 08/03/21 06/12/23 polyethylene glycol 3350 17 gram 17 g PO DAILY 08/03/21 11/02/21 oral powder packet therapeutic multivitamin 1 tab PO DAILY 08/03/21 06/12/23 cyanocobalamin (vitamin B-12) 1,000 mcg subcut QWEEK 08/05/21 06/12/23 1,000 mcg/mL injection solution Saccharomyces boulardii 250 mg 250 mg PO BID 09/12/21 10/02/21 capsule (Florastor) carvedilol 12.5 mg tablet 12.5 mg PO BID 09/12/21 11/02/21 ondansetron 4 mg disintegrating 4 mg PO PRN 09/12/21 tablet cefpodoxime 200 mg tablet 200 mg PO BID 10/02/21 11/02/21 ferrous sulfate 324 mg (65 mg 324 mg PO DAILY 10/02/21 06/12/23 iron) tablet,delayed release metoprolol succinate 50 mg 50 mg PO 1XD 06/12/23 06/12/23 tablet,extended release 24 hr ropinirole 0.5 mg tablet 0.5 mg PO 3XD 06/12/23 06/12/23 sacubitril 24 mg-valsartan 26 mg 12 - 13 tab PO 2XD 06/12/23 06/12/23 tablet (Entresto) Previous Rx's Medication Instructions Recorded magnesium oxide 400 mg (241.3 mg 400 mg PO DAILY ##30 03/28/17 magnesium) tablet Allergies Allergy/AdvReac Type Severity Reaction Status Date / Time Penicillins Allergy Severe Anaphylaxsi Unverified 11/02/21 10:21 s donepezil [From Aricept] Allergy Mild mild per Unverified 11/02/21 10:21 pcp chart adenosine Allergy Unverified 11/02/21 10:21 metformin [From Glucophage] Allergy per pcp Unverified 11/02/21 10:21 chart--moderate codeine AdvReac Intermediate Dizziness/L Unverified 11/02/21 10:21 ightheade General Stated Complaint: Chest Pain DANIEL: 2 Review of Systems All systems reviewed & are unremarkable except as noted in HPI and below ENT Ears, Nose, Mouth, and Throat: Reports dizziness Cardiovascular Cardiovascular: Reports as per HPI and Reports chest pain Gastrointestinal Gastrointestinal: Reports bloating and Reports nausea Neurologic Neurologic: Reports as per HPI and Reports dizziness PFSH All Active Problems (Updated 06/12/23 @ 19:46 by Florinda Gupta NP) Chest pain (Acute) Has run out of medications (Acute) Dizziness (Acute) Elevated lipase (Acute) Chest pain (Acute) Abdominal aortic aneurysm dissection (Acute) Left-sided chest pain (Acute) Abdominal pain (Acute) Acute cholecystitis (Acute) Sepsis (Acute) Weakness (Acute) Hepatic abscess (Acute) Orthostatic hypotension (Acute) History of cholecystectomy (Chronic) Contusion of rib (Acute) Pancreatitis (Chronic) Discharge planning issues (Acute) DVT prophylaxis (Acute) BPH (benign prostatic hyperplasia) (Chronic) Pulmonary hypertension (Acute) COPD (chronic obstructive pulmonary disease) (Chronic) Hypertension (Chronic) Hyperlipidemia (Chronic) Diabetes (Chronic) Allergy to codeine (Chronic) Allergy to penicillin (Chronic) CAD (coronary artery disease) (Chronic) Remote history of coronary disese, status post stent some 15 years ago, no history of ND. CHF (congestive heart failure) (Chronic 10/21/13) Medical History Apical mural thrombus Atrial fib/flutter, transient Mena's palsy CAD (coronary artery disease) Cardiomyopathy CHF (congestive heart failure) COPD (chronic obstructive pulmonary disease) DM (diabetes mellitus) HTN (hypertension) Hypothyroidism Obesity (BMI 30.0-34.9) ORLIN (obstructive sleep apnea) Renal insufficiency Surgical History Appendectomy Colonoscopy - MAC (08/04/16) Hx of cardiac cath in [place] in the - unknown intervention [facility] [place] 2013 - clean coronaries, severe pulmonary hypertension, no prior stent found Family History Mother Cervical cancer Other Colon cancer Social History Smoking/Tobacco Use Status: Former Tobacco Use Smoking risk assessment performed?: Yes Drug use: Never Substance use type: does not use Details: states he has increased his alcohol use recently due to the heat Do you feel safe at home: Yes Do you feel safe in your relationship?: Yes Exam Narrative Exam Narrative: Constitutional: Alert and oriented x3. Appears stated age. Normal body habitus. Head: Normocephalic, no trauma. Eyes: Pupils PERRL, Red reflex noted, EOM's intact. Eyelids symmetrical without lesions, discharge, or swelling. Chest: RRR, Normal S1, S2, distal pulses intact. EKG shows a right bundle branch block. Resp: Lungs clear to auscultation bilaterally, no wheezes, rales, or rhonchi. Abdomen: Soft, non-distended, Normoactive bowel sounds all 4 quads. Patient reports that he was complaining of some bloating and nausea vomiting. No palpable pulsatile mass. Musculoskeletal: Normal gait, 5/5 strength to all four extremities. Skin: No suspicious rashes or lesions. Capillary refill less than 2 sec. pallor noted to the bilateral lower extremities Neurologic: Cranial nerves II-XII intact. Alert and oriented x 3. Motor: No deficits noted. Sensory: Intact bilaterally all 4 extremities. Reflexes: DTR's intact bilaterally.. Hematologic/Lymphatic: No ecchymosis, no lymphadenopathy. Course Vital Signs Vital signs: Vital Signs Temperature 36.6 C 06/12/23 15:47 Pulse 75 06/12/23 15:47 Respiratory Rate 26 H 06/12/23 15:47 Blood Pressure 101/73 06/12/23 15:47 Pulse Oximetry 100 06/12/23 15:47 Temperature 36.6 C 06/12/23 15:47 Temperature Source Oral 06/12/23 15:47 Pulse 75 06/12/23 15:47 Respiratory Rate 26 H 06/12/23 15:47 Blood Pressure 101/73 06/12/23 15:47 Blood Pressure Position Sitting 06/12/23 15:47 Pulse Oximetry 100 06/12/23 15:47 Oxygen Delivery Method Room Air 06/12/23 15:47 Oxygen Flow Rate 0 06/12/23 15:47 Pain Level 8 06/12/23 15:47 Lab/Test Results Lab/Test Results: Laboratory Tests Range/Units 06/12/23 16:20 WBC (4.4-10.8) 10^3/uL 9.45 RBC (4.36-5.78) 10^6/uL 3.99 L Hgb (13.5-17.5) g/dL 13.5 Hct (40.0-50.0) % 39.7 L MCV (80-95) fL 100 H MCH (27.0-33.0) pg 33.8 H MCHC (32.0-36.0) % 34.0 RDW (11.8-14.1) % 13.0 Plt Count (130-400) 10^3/uL 196 MPV (8.0-11.0) fL 9.8 Immature Gran % 0.2 Neutrophils % 78.1 Lymphocytes % 8.9 Monocytes % 11.1 Eosinophils % 1.5 Basophils % 0.2 Nucleated RBC % (0.0-0.3) % 0.0 Absolute Neutrophils (1.2-6.7) 10^3/uL 7.38 H Absolute Lymphocytes (1.2-3.4) 10^3/uL 0.84 L Absolute Monocytes (0.1-0.8) 10^3/uL 1.05 H Absolute Eosinophils (0.0-0.7) 10^3/uL 0.14 Absolute Basophils (0.0-0.2) 10^3/uL 0.02
[2023-06-12] MEDS: nitroGLYcerin 0.4 MG TAB SL (16:38)
[2023-06-12 16:39] LABS: Prothrombin Time 9.9 sec (9.3-11.0)
[2023-06-12 16:43] LABS: ALT 56 U/L (16-63); AST 36 U/L (15-37); Albumin 3.8 g/dL (3.4-5.0); Alkaline Phosphatase 119 U/L (46-116); Anion Gap 9.3 mmol/L (3-11); BUN 18 mg/dL (7-18); Bilirubin, Total 0.7 mg/dL (0.2-1.0); CO2 27.7 mmol/L (21.0-32.0); CREATININE 1.1 mg/dL (0.70-1.30); Calcium 9.1 mg/dL (8.5-10.1); Chloride 102 mmol/L (98-107); Estimated GFR 68.71 (mL/min/1.73m2); Glucose 123 mg/dL (74-106); Magnesium 1.9 mg/dL (1.8-2.4); Potassium 3.8 mmol/L (3.5-5.1); Sodium 139 mmol/L (136-145); Total Protein 7.2 g/dL (6.4-8.2); Troponin I < 50 ng/L (<or=60)
--- NOTE | 2023-06-12 16:45 | DI.CT_ITS ---
Exam(s) CT CHEST/ABD/PEL W EXAM: CT CHEST/ABD/PEL W CLINICAL HISTORY: R/O AAA dissection, Chest pain, Vomiting TECHNIQUE: Imaging Protocol: Axial computed tomography images with coronal and sagittal reformatted images were created and reviewed CONTRAST MATERIAL: Intravenous: Omnipaque 350 contrast volume:100 mL Oral: No COMPARISON: CT CT CHEST/ABD/PEL W from 11/02/[address] ABDOMEN PELVIS W from 01/11/2022 FINDINGS: CHEST: Tracheobronchial tree: Patent where visualized. Pulmonary parenchyma: There are few small areas of ground-glass opacity in the lungs. No focal conso lidating infiltrates are seen. Atelectasis or scarring is seen in the dependent portions of the lung s. No architectural distortion. Visualized thyroid gland: Unremarkable. Mediastinum and Colleen: No dominant adenopathy or fluid collection. The esophagus is unremarkable. Pleura: No effusion or pneumothorax. Heart: The heart is not dilated. Mild coronary artery calcification is seen. Transvenous pacing wire s are in place. No pericardial effusion. Pulmonary arteries: Segmental and subsegmental pulmonary arteries are inadequately opacified for eval uation of pulmonary emboli. No large central pulmonary embolus is present. Aorta: Thoracic aorta non-dilated. No evidence of dissection. Atherosclerosis is present. Lymph nodes: Within normal limits. Soft tissues: Gynecomastia. Bones:Within normal limits for the patient's age. ABDOMEN: Liver: Normal density. No measurable mass. There is pneumobilia. Portal, Superior Mesenteric, and Splenic Veins: Unremarkable. Gallbladder and Biliary Tract: Gallbladder is absent. There is no biliary ductal dilatation. Pancreas: Normal density, no abnormal calcifications or inflammatory process. Spleen: Normal. Adrenals: No masses seen. Kidneys: Normal size, contour and axis. No radiodense stones or obstructive uropathy. No masses seen. Abdominal Aorta: Abdominal portion non-dilated. There is a stable chronic dissection in the distal ab dominal aorta. No acute dissection is identified. Atherosclerosis is present. Bowel: No obstruction or bowel wall thickening. No evidence of appendicitis. Peritoneal Cavity: No ascites, collection or mesenteric inflammatory response. No free air. Lymph Nodes: Within normal limits. Bones: Within normal limits for the patient's age. Soft Tissues: There is a fat containing left inguinal hernia. There is a large right inguinal hernia containing a segment of the urinary bladder. The segmental urinary bladder included in the hernia i s actually smaller compared to the prior examination from 2020. PELVIS: Bladder: Please see the above section under soft tissues. Reproductive Organs: Unremarkable as visualized. Lymph Nodes: Within normal limits. Bones: Within normal limits. IMPRESSION: 1. No acute pulmonary process. 2. No evidence of an acute thoracic or abdominal aortic dissection. 3. Chronic infrarenal abdominal aortic dissection. This is unchanged compared to the prior examinati ons. 4. Stable right inguinal hernia containing a segment of the urinary bladder. 5. Findings were discussed with Florinda Gupta at 5:57 p.m. on 06/12/2023. RADIATION DOSE DELIVERED: 1,391.87mGy.cm Total DLP DATA REPOSITORY: All CT scans at this facility are submitted to the National Radiology Data Registry (NRDR) Dose Index Registry (DIR) with the [employer] ([employer]). RADIATION OPTIMIZATION: All CT scans at this facility use at least one of these dose optimization te chniques: automated exposure control; mA and/or kV adjustment per patient size (includes targeted exa ms where dose is matched to clinical indication); or iterative reconstruction.
[2023-06-12 16:49] LABS: NT-proBNP 294 pg/mL (<300)
[2023-06-12] MEDS: Normal Saline 250 ML IV (16:55)
[2023-06-12] MEDS: Ondansetron 4 MG/2 ML VIAL IVP (16:55)
[2023-06-12] MEDS: Normal Saline - Diluent 50 ML VIAL IJ (17:05)
[2023-06-12] MEDS: Omnipaque 350 MG/ML 100 ML BTL IJ (17:06)
[2023-06-12] MEDS: Normal Saline Flush 10 ML SYR IVP (17:16)
--- NOTE | 2023-06-12 19:15 | RT.EKG_ITS ---
APPROVED REPORT Exam: Resting ECG Reason for Exam: follow up Patient Location: E HR:64 bpm ECG Measurements Heart Rate 64 AXIS OK 246 P 28 QRSd 146 QRS -117 QT 486 T -13 QTc 501 Conclusion Sinus rhythm...normal P axis, V-rate 60- 99 Atrial premature complex...SV complex w/ short R-R interval Prolonged OK interval...OK >220, V-rate 50- 90 Right bundle branch block...QRSd>120, terminal axis(90,270) Inferior infarct, old...Q >35mS, II III aVF sinus rhtyhm, left axis, flattened t waves laterally
[2023-06-12 19:26] LABS: Troponin I < 50 ng/L (<or=60)
[2023-06-12] MEDS: Ondansetron O.D.T. 4 MG TABEF, 3 TABS/BTL PO (19:57)
--- NOTE | 2023-06-13 01:11 | NUR.NOTE ---
Referral faxed to [facility] to f/u next available appt. Patient has a loose pacemaker wire.Nursing Note:
--- NOTE | 2023-06-15 15:07 | NUR.NOTE ---
Accessed chart to determine orders for EKG and to determine whether or not one needs to be cancelled. Nursing Note:
== END 2023-06-12 20:00 | disposition home or self-care (01) ==
PROVIDERS: Emergency Provider Registered Nurse Emergency; PCP Family Medicine
DX: R07.9 Chest pain, unspecified (principal); R42 Dizziness and giddiness; E11.9 Type 2 diabetes mellitus without complications
CPT/HCPCS: 74177; 80053; 93005; 96361; 96374; 99284; 71260; 83735; 83880; 84484; 85025; 85610; 85730; 93010; J2405; J3490

== ENCOUNTER 2024-05-21 19:15 | Emergency (ER) | payer OTHER, MEDICARE, SELFPAY ==
[2024-05-21] VITALS (44 sets, daily range): BP systolic 114–156; BP diastolic 51–116; PULSE 66–91; RESP 12–33; TEMP 36.3; O2SAT 89–99
--- NOTE | 2024-05-21 19:15 | RT.EKG_ITS ---
APPROVED REPORT Exam: Resting ECG Reason for Exam: chest pain Patient Location: E HR:80 bpm ECG Measurements Heart Rate 80 AXIS NM 209 P 42 QRSd 106 QRS -70 QT 438 T 38 QTc 506 Conclusion Sinus rhythm...normal P axis, V-rate 60- 99 Inferior infarct, old...Q >35mS, II III aVF Prolonged QT interval...QTc >500mS Normal sinus rhythm at a rate of 80. Left axis deviation. First-degree AV block interventricular co nduction delay QTc prolongation at 5 to 6 ms. Low voltage. No acute ST segment abnormalities. T wa ve flattening inferior leads and in aVL. Compared to prior dated last year T wave flattening is pers istent. First-degree AV block slightly improved. QTc is similar. No acute injury pattern.
--- NOTE | 2024-05-21 19:23 | DI.CT_ITS ---
Exam(s) CT THORAX ABD/PEL CTA EXAM: CT THORAX ABD/PEL CTA CLINICAL HISTORY: History of aneurysm. TECHNIQUE: Imaging Protocol: Axial CT angiography was performed with multi-slice acquisition and m ulti-planar and/or 3D reconstructions. CONTRAST MATERIAL: Intravenous: Omnipaque 350 contrast volume:100 mL Oral: No COMPARISON: CT CT THORAX ABD/PEL CTA from 10/02/[address] CHEST/ABD/PEL W from 11/02/[address] CHEST/ABD/PEL W from 06/12/2023 FINDINGS: CHEST: Tracheobronchial tree: Patent where visualized. Pulmonary parenchyma: There is a stable ground-glass nodule in the right upper lobe. No new pulmonar y nodules or infiltrates are seen. No architectural distortion. Pulmonary Arteries: No evidence of filling defect to suggest pulmonary emboli. Mediastinum and Colleen: No dominant adenopathy or fluid collection. The esophagus is unremarkable. Visualized thyroid: Unremarkable. Pleura: No effusion or pneumothorax. Heart: The heart is not dilated. Coronary artery calcifications are present. No pericardial effusion . Aorta: Thoracic aorta non-dilated. No evidence of dissection. Atherosclerotic calcification is prese nt. Soft Tissues: Gynecomastia. Tubes, Catheters, and Lines: There is a cardiac device in place. Bones: Within normal limits for the patient's age. ABDOMEN AND PELVIS: Abdomen: Celiac axis/mesenteric arteries: No evidence of occlusion or significant stenosis. Mild atherosclero sis at the origin of the celiac axis and the superior mesenteric artery. Renal Arteries: No evidence of occlusion or significant stenosis. Mild atherosclerosis at the origin s of the renal arteries. Aorta: No evidence of occlusion or significant stenosis. Stable chronic abdominal aortic dissection . No acute abnormality. Atherosclerosis is present. Pelvis: Iliac Arteries: No evidence of occlusion or significant stenosis. Atherosclerosis is present. Common Femoral Arteries: No evidence of occlusion or significant stenosis. Atherosclerosis is prese nt. ABDOMEN: Liver: Normal density. No measurable mass. Gallbladder and Biliary Tract: Status post cholecystectomy. There is pneumobilia again seen. Pancreas: Normal density, no abnormal calcifications or inflammatory process. Spleen: Normal. Adrenals: Stable appearance of the adrenal glands. There is stable nodularity of the left adrenal gl and. Kidneys: Normal size, contour and axis. No radiodense stones or obstructive uropathy. No masses seen. Bowel: No obstruction or bowel wall thickening. There is no evidence of appendicitis. There is a rig ht inguinal hernia containing a short segment of the sigmoid colon. No evidence of obstruction or st rangulation of the bowel is seen. There is also a small component of the urinary bladder within the right inguinal hernia. Peritoneal Cavity: No ascites, collection or mesenteric inflammatory response. No free air. Lymph Nodes: Within normal limits. Bones: Within normal limits for the patient's age. Soft Tissues: There are bilateral inguinal hernias. The right inguinal hernia contains portions of t he urinary bladder and the sigmoid colon. No evidence of bowel strangulation is seen. The left ingu inal hernia contains fat. PELVIS: Bladder: Symmetric distention, no gross wall thickening. Reproductive Organs: Unremarkable as visualized. Lymph Nodes: Within normal limits. Bones: Within normal limits for the patient's age. IMPRESSION: 1. No evidence of an acute dissection. Stable appearance of the abdominal aorta. 2. Atherosclerotic calcification is present. 3. Right inguinal hernia containing unremarkable loops of both the urinary bladder and the sigmoid co merary. 4. No acute abdominal or pelvic process. 5. Findings were discussed with Dr. Cruz at 10:06 a.m. on 05/22/2024. RADIATION DOSE DELIVERED: 1,329.49mGy.cm Total DLP DATA REPOSITORY: All CT scans at this facility are submitted to the National Radiology Data Registry (NRDR) Dose Index Registry (DIR) with the [employer] ([employer]). RADIATION OPTIMIZATION: All CT scans at this facility use at least one of these dose optimization te chniques: automated exposure control; mA and/or kV adjustment per patient size (includes targeted exa ms where dose is matched to clinical indication); or iterative reconstruction.
[2024-05-21] MEDS: MAGNESIUM SULFATE 2 GM/50 ML BAG IVINF (19:40)
[2024-05-21 19:43] LABS: Abs Immature Grans 0.05 10^3/uL (0.0-0.06); Absolute Basophil Count 0.03 10^3/uL (0.0-0.2); Absolute Eosinophil Count 0.13 10^3/uL (0.0-0.7); Absolute Lymphocyte Count 2.31 10^3/uL (1.2-3.4); Absolute Monocyte Count 0.69 10^3/uL (0.1-0.8); Absolute Neutrophil Count 5.97 10^3/uL (1.2-6.7); Basophils % 0.3 %; Eosinophils % 1.4 %; HCT 44.3 % (40.0-50.0); HGB 15.2 g/dL (13.5-17.5); Immature Grans % 0.5 %; Lymphocytes % 25.2 %; MCH 34.1 pg (27.0-33.0); MCHC 34.3 % (32.0-36.0); MCV 99 fL (80-95); MPV 9.5 fL (8.0-11.0); Monocytes % 7.5 %; Neutrophils % 65.1 %; Platelet Count 245 10^3/uL (130-400); RBC 4.46 10^6/uL (4.36-5.78); RDW 12.4 % (11.8-14.1); RDW-SD 45.1 fL; WBC 9.18 10^3/uL (4.4-10.8)
[2024-05-21] MEDS: Normal Saline - Diluent 50 ML VIAL IJ (19:44)
[2024-05-21] MEDS: Omnipaque 350 MG/ML 100 ML BTL IJ (19:57)
[2024-05-21 20:04] LABS: Anion Gap 13.6 mmol/L (3-11); BUN 16 mg/dL (7-18); CO2 25.4 mmol/L (21.0-32.0); CREATININE 1.2 mg/dL (0.70-1.30); Calcium 9.8 mg/dL (8.5-10.1); Chloride 99 mmol/L (98-107); Estimated GFR 61.52 (mL/min/1.73m2); Glucose 141 mg/dL (74-106); Potassium 3.4 mmol/L (3.5-5.1); Sodium 138 mmol/L (136-145); Troponin I < 50 ng/L (< or =60)
[2024-05-21 20:12] LABS: Magnesium 2.2 mg/dL (1.8-2.4)
--- OUTSIDE RECORDS SUMMARY | 2024-05-21 20:38 | XMS_ITS | Continuity of Care Document ---
Author Name Unknown Organization [facility] Address [address] [place] [address]- Care Team Providers Care Senior Java Software Developer Name Role Phone My Travis Primary Care Physician Encounter [facility] [id number] Date(s): 02/19/23 - 02/20/23 [facility] [address] [facility] [id number] [place] [address] [place] Discharge Disposition: [facility]-ROUTINE DISCHARGE Attending Physician: Nikolay Tidwell MD Admitting Physician: Nikolay Tidwell MD Referring Physician: Nikolay Tidwell MD Reason for Visit ISCHEMIC CARDIOMYOPA Allergies, Adverse Reactions, Alerts Substance Reaction Severity Status codeine hives Active penicillin hives Active Medications amiodarone (amiodarone 200 m g oral tablet) Status: Ordered Start Date: 01/15/23 Stop Date: 02/14/23 100 Milligram By Mouth Daily for 30 Days. Refills: 0. Ordering provider: Margi Plummer MD [facility] [phone] [phone] apixaban (apixaban 5 mg oral tablet) Status: Ordered Start Date: 01/15/23 1 Tabs By Mouth 2 Times a Day. aspirin (aspirin 81 mg oral tablet, chewable) Status: Ordered Start Date: 01/15/23 1 Tabs Chewed Daily. atorvastatin (atorvastatin 4 0 mg oral tablet) Status: Ordered Start Date: 01/15/23 1 Tabs By Mouth at Bedtime. enalapril (enalapril 10 mg o ral tablet) Status: Ordered Start Date: 02/16/23 1 Tabs By Mouth Daily. finasteride (Proscar 5 mg or al tablet) Status: Ordered Start Date: 12/17/22 1 Tabs By Mouth Daily. FLUoxetine (PROzac 20 mg ora l capsule) Status: Ordered Start Date: 12/17/22 1 Capsules By Mouth Daily. furosemide (furosemide 40 mg oral tablet) Status: Ordered Start Date: 01/15/23 Stop Date: 02/14/23 1 Tabs By Mouth 2 Times a Day for 30 Days. Administer at 9 am and 2 pm. Refills: 0. [facility]ing [facility]: [facility] [phone] [phone] levothyroxine (Synthroid 25 mcg (0.025 mg) oral tablet) Status: Ordered Start Date: 12/17/22 1 Tabs By Mouth Daily. loratadine (loratadine 10 mg oral tablet) Status: Ordered Start Date: 12/17/22 1 Tabs By Mouth Daily. metFORMIN (metFORMIN 500 mg oral tablet) Status: Ordered Start Date: 01/02/23 1 Tabs By Mouth Daily as needed Blood Glucose (please specify). for blood sugar over 200. metoprolol (Metoprolol Succi abby ER 50 mg oral tablet, extended release) Status: Ordered Start Date: 01/12/23 1 Tabs By Mouth at Bedtime. pantoprazole (Protonix 20 mg oral enteric coated tablet) Status: Ordered Start Date: 12/17/22 1 Tabs By Mouth Daily. spironolactone (spironolacto ne 25 mg oral tablet) Status: Ordered Start Date: 01/15/23 1 Tabs By Mouth Daily. Refills: 0. Ordering provider: [facility] [phone] [place] [phone] sulfamethoxazole-trimethopri m (Bactrim DS 800 mg-160 mg oral tablet) Status: Ordered Start Date: 02/20/23 Stop Date: 02/25/23 0.5 Tabs By Mouth 2 Times a Day for 5 Days. Refills: 0. Ordering provider: Jordan Cruz MD [facility] [phone] [place] [phone] tamsulosin (tamsulosin 0.4 m g oral capsule) Status: Ordered Start Date: 01/15/23 1 Capsules By Mouth 2 Times a Day. Problem List Condition Confirmation Course Effective Dates Status Health St atus Informant Atrial fibrillation Confirmed Active COPD (chronic obstructive pulmonary disease) Confirmed Active CHF (congestive heart failure) Confirmed Active Diabetes Confirmed Active Hyperlipemia Confirmed Active HTN (hypertension) Confirmed Active Procedures Procedure Date Related Diagnosis Body Site Status Collection of venous blood b y venipuncture 02/20/23 Completed Insertion Defibrillator (Lat erality NA) 1 02/19/23 Completed Collection of venous blood b y venipuncture 02/16/23 Completed Cholecystectomy; 2020 Complete d Appendectomy; 03/20/64 Completed inguinal hernia repair Co mpleted 1auto-populated from documented surgical case Results Laboratory List Name Date Basic Metabolic Panel 02/20/23 CBC no Diff 02/20/23 Basic Metabolic Panel (BMP) 02/16/23 CBC no Diff 02/16/23 PT INR 02/16/23 aPTT (PTT) 02/16/23 02/20/23 Test Result Reference Range Specimen Source Labo ratory WBC 9.50 x10e3/mcL (Normal is 4.30-11.00 x10e3/mcL) Blood [facility] RBC 3.97 x10e6/mcL (Normal is 4.60-6.20 x10e6/mcL) Blood [facility] Lab Hgb 12.90 gm/dL (Normal is 14.00-18.00 gm/dL) Blood [facility] Lab Hct 38.70 % (Normal is 40.00-54.00 %) Blood [facility] Lab MCV 97.5 Femtoliters (Normal is 80.0-100.0 Femtoliters) Blood [facility] Lab MCH 32.60 pg (Normal is 26.00-33.00 pg) Blood [facility] Lab MCHC 33.50 gm/dL (Normal is 31.00-36.00 gm/dL) Blood [facility] Lab RDW-CV 14.30 % (Normal is 11.00-17.00 %) Blood [facility] Lab RDW-SD 49.40 Femtoliters (Normal is 36.50-45.90 Femtoliters) Blood [facility] Lab Plt 170 x10e3/mcL (Normal is 150-3 75 x10e3/mcL) Blood [facility] MPV 8.60 Femtoliters (Normal is 7.40-11.40 Femtoliters) Blood [facility] Glucose Level 132 mg/dL (Normal is 74-10 6 mg/dL) Blood [facility] Sodium 136 mmol/L (Normal is 136-1 45 mmol/L) Blood [facility] Potassium 3.7 mmol/L (Normal is 3.5-5 .1 mmol/L) Blood [facility] Chloride 105 mmol/L (Normal is 98-10 7 mmol/L) Blood [facility] CO2 27 mmol/L (Normal is 21-32 mmol/L) Blood [facility] Anion Gap 4 mmol/L (Normal is 3-11 mmol/L) Blood [facility] BUN 18 mg/dL (Normal is 7-18 mg/dL) Blood [facility] Lab Creatinine 0.9 mg/dL (Normal is 0.6-1 .3 mg/dL) Blood [facility] BUN/Creat Ratio 20.00 Ratio (Normal is 6.00-22.00 Ratio) Blood [facility] Calcium 9.0 mg/dL (Normal is 8.5-10.0 mg/dL) Blood [facility] Lab Estimated Creatinine Clearance 61.36 mL/min 1 eGFR Cr 87 mL/min/1.73m2 2 Blood eGFR Pediatric Not Reported mL/min/1.73m2 3 (Normal is >=75 mL/min/1.73m2) Blood 02/16/23 Test Result Reference Range Specimen Source Labo ratory WBC 6.00 x10e3/mcL (Normal is 4.30-11.00 x10e3/mcL) Blood [facility] RBC 3.91 x10e6/mcL (Normal is 4.60-6.20 x10e6/mcL) Blood [facility] Hgb 12.90 gm/dL (Normal is 14.00-18.00 gm/dL) Blood [facility] Hct 38.40 % (Normal is 40.00-54.00 %) Blood [facility] MCV 98.2 Femtoliters (Normal is 80.0-100.0 Femtoliters) Blood [facility] MCH 33.00 pg (Normal is 26.00-33.00 pg) Blood [facility] MCHC 33.60 gm/dL (Normal is 31.00-36.00 gm/dL) Blood [facility] RDW-CV 13.80 % (Normal is 11.00-17.00 %) Blood [facility] Plt 200 x10e3/mcL (Normal is 150-3 75 x10e3/mcL) Blood [facility] MPV 8.30 Femtoliters (Normal is 7.40-11.40 Femtoliters) Blood [facility] Lab PT 10.3 Seconds (Normal is 10.1-12.8 Seconds) Blood [facility] INR <0.93 (Normal is 0.91-1.20) Blood [facility] aPTT 28.9 Seconds (Normal is 21.9-31.0 Seconds) Blood [facility] Glucose Level 116 mg/dL (Normal is 74-10 6 mg/dL) Blood [facility] Sodium 137 mmol/L (Normal is 136-1 45 mmol/L) Blood [facility] Potassium 4.3 mmol/L (Normal is 3.5-5 .1 mmol/L) Blood [facility] Chloride 105 mmol/L (Normal is 98-10 7 mmol/L) Blood [facility] CO2 32 mmol/L (Normal is 21-32 mmol/L) Blood [facility] Anion Gap 0 mmol/L (Normal is 3-11 mmol/L) Blood [facility] BUN 12 mg/dL (Normal is 7-18 mg/dL) Blood [facility] Creatinine 1.0 mg/dL (Normal is 0.6-1 .3 mg/dL) Blood [facility] Lab BUN/Creat Ratio 12.00 Ratio (Normal is 6.00-22.00 Ratio) Blood [facility] Calcium 9.3 mg/dL (Normal is 8.5-10.0 mg/dL) Blood [facility] Lab Estimated Creatinine Clearance 55.22 mL/min 4 eGFR Cr 77 mL/min/1.73m2 5 Blood eGFR Pediatric Not Reported mL/min/1.73m2 6 (Normal is >=75 mL/min/1.73m2) Blood 1Result Comment: Calculated using method: Cockroft-Gault 2Result Comment: No previous creatinine in the last 72 hours; eGFR may not be reflective of the patient???s kidney function if creatinine is rapidly changing. 3Result Comment: Not reported for adult patients ( > 18 years old ). 4Result Comment: Calculated using method: Cockroft-Gault 5Result Comment: No previous creatinine in the last 72 hours; eGFR may not be reflective of the patient???s kidney function if creatinine is rapidly changing. 6Result Comment: Not reported for adult patients ( > 18 years old ). Laboratory Information [facility] Lab CLIA Number: [id number] [facility] [address] Lab CLIA Number: [id number] [facility] [address] Lab CLIA Number: [id number] [facility] [address] Lab CLIA Number: [id number] [facility] [address] Vital Signs 02/20/23 Temperature (Route Not Specified) 36.7 DegC (Normal is 36.5-37.3 DegC) Peripheral Pulse Rate 62 bpm (Normal is 60-100 bpm) Respiratory Rate 16 br/min (Normal is 12-2 0 br/min) Blood Pressure 122/62mmHg (Normal is 90-13 5/60-80 mmHg) 02/19/23 Height 168 cm 02/16/23 Weight 98.1 kg Social History Social History Type Response Tobacco Denies Smoking Status Former smoker Sex Male Hospital Discharge Instructions Patient Education 02/20/2023 09:51:46 Pacemaker Implantation, Discharge Instructions Discharge Instructions for Pacemaker Implantation You have had a procedure to insert a pacemaker. Once inside your body, this small electronic devicehelps keep your heart from beating too slowly. A pacemaker can't fix existing heart problems. But it can help you feel better and have more energy. As you recover, follow all of the instructions you are given, including those below. Activity ???Follow the instructions you are given about limiting your activity. ???If you are fitted with an arm sling, keep your arm in the sling for as long as your doctor tellsyou to. Most often, the sling will be removed the next day. But you may be told to sleep with it onfor a period to prevent damage to the pacemaker while it's healing. ???Don't raise your arm on the incision side above shoulder level or stretch your arm behind your back for as long as directed by your doctor. This gives the leads a chance to secure themselves inside your heart. ???Don't drive until your doctor says it's OK. Have someone drive you home after the procedure. ???Ask your doctor when you can expect to return to work. Depending on the type of work you do, youmay have limits until your doctor says it's OK for unrestricted activity. ???You can still exercise. It's good for your body and your heart. Talk with your doctor about an exercise plan and the types of exercise to limit the risk of damaging your pacemaker. Other precautions ???Follow your doctor's directions carefully for wound care. If there is a dressing, ask whether you should remove it or keep it on until your next visit. Never put any creams, lotions, or products like peroxide on an incision unless your doctor tells you to. Don't get the incision wet until your doctor says it's OK. ???Take your temperature every day and check your incision for signs of infection. These include redness, swelling, drainage, and warmth. Do this for 7 days, or as advised by your doctor. ???Learn to take your own pulse. Keep a record of your results. Ask your doctor what pulse rate means you should call for medical attention. ???Before you have any treatment, tell all healthcare providers, including your dentist, that you have a pacemaker. ???You will be given an ID card that has information about your pacemaker. Always carry this card with you. You can show this card if your pacemaker sets off a metal detector. Also show it so you don't need to be screened with a hand- held security wand. ???Be careful when using cell phones and other electronic devices. Keep them at least 6 inches awayfrom your pacemaker. It's safest to hold all cell phones to the ear farthest from your pacemaker oruse the speaker mode setting. Don???t carry your phone or electronic device in your chest pocket, over the pacemaker. Experts advise carrying your cell phone and other electronics in a pocket or bag below your waist. Most cell phones and electronic devices don't interfere with pacemakers. But some cell phones and electronic devices such as smart watches use powerful magnets for wireless charging that may interfere with how your pacemaker works. The magnet used for charging or other magnet accessories can also interfere with how your pacemaker or ICD works. These devices should be kept at least 12 inches away from your pacemaker when wirelessly charging or stored. Follow any other instructions given to you by your healthcare provider or from the maker of your pacemaker. ???Stay away from strong magnets. Examples are those used in MRIs or in hand- held security wands. Some pacemakers are now safe to use with MRI scanners. Ask your doctor if you have such a pacemaker. ???Stay way from strong electrical howard. Examples are those made by radio transmitting towers, ham radios, and heavy-duty electrical equipment. ???Don't lean over the open brooks of a running car. A running engine creates an electrical field. Most household and yard appliances will not cause any problems. If you use any large power tools, suchas an industrial charcoal burner beehive kiln, talk with your doctor. ???Your doctor may give you a list of other devices and procedures to stay away from. Follow-up care ???See your bench grinder in the next 7 to 10 days. Call and make an appointment as soon as you get home. ???Make regular follow-up appointments with your doctor. He or she will check the pacemaker to makesure it's working properly. ???Plan on having periodic checkups with your healthcare provider to assess the battery life of your pacemaker. Depending on your device and how much your body uses the pacing functions of the pacemaker, you will need a new device generator implanted at some point. This is generally about every 5 to 7 years. ???Some pacemakers have a built-in antenna that can send information such as trouble alerts over the internet to your doctor. Ask your doctor if your pacemaker is capable of remote monitoring. When to call your healthcare provider Call 911 if you have: ???Chest pain ???Severe trouble breathing Call your healthcare provider right away if you have any of these: ???Dizziness ???Lack of energy ???Fainting spells ???Twitching chest muscles ???Rapid pulse or pounding heartbeat ???Shortness of breath ???Pain around your pacemaker ???Fever above 100.4?? F (38?? C) or higher, or as directed by your healthcare provider ???Other signs of infection such as redness, swelling, drainage, or warmth at the incision site ???Your incision is not healing or your incision separates or opens ???Hiccups that won't stop ???Redness, severe swelling, drainage, worsening pain, bleeding, or warmth at the incision site ???If your pacemaker generator feels loose or like it is wiggling in the pocket under the skin ?? 3936-7376 [employer]. All rights reserved. This information is not intended as a substitute for professional medical care. Always follow your healthcare professional's instructions. 02/20/2023 09:51:41 Living with a Pacemaker Living with a Pacemaker After you have a pacemaker implanted, you can do almost everything you did before your surgery. Here are tips for living well with a pacemaker. Carry an ID card When you first get your pacemaker, you???ll be given an ID card to carry with you. This card has important information about the device. Show it to any doctor, dentist, or other healthcare provider you visit. Pacemakers may set off metal detectors. So you may need to show your card to security personnel, such as those in the airport security checkpoint. What to watch for ???Be careful when using cell phones and electronic devices. Keep them at least 6 inches away from your pacemaker. It's safest to hold all cell phones to the ear farthest from your pacemaker or use the speaker mode setting. Don???t carry your phone or electronic device in your chest pocket, over the pacemaker. Experts advise carrying your cell phone and other electronics in a pocket or bag below your waist. Most cell phones and electronic devices don't interfere with pacemakers. But some cell phones and electronic devices, such as smart watches, use powerful magnets for wireless charging that may interfere with the normal function of your pacemaker. The magnet used for charging or other magnet accessories can also interfere with the normal function of your pacemaker or ICD. These devices should be stored at least 15 inches away from your pacemaker.Follow any other instructions given to you by your healthcare provider or from the maker of your pacemaker or ICD. ???Stay away from very strong magnets. These include hand-held security wands, metal detectors, andanti-theft systems often found in the workplace, airport, or other high-security areas. Show your ID card when you go through security. They also include MRI machines. Many pacemaker devices are considered safe for having an MRI (MR-conditional devices). But safety precautions must still be used. Ch faraz with your pacemaker healthcare provider for clearance if you need an MRI. ???Stay away from strong electrical howard. These??are made by radio transmitting towers and ham radios. They are also made by heavy-duty electrical equipment. A running engine makes an electrical field. Don't lean over the open brooks of a running car and avoid working on alternators.??If you use any large power tools, such as an industrial charcoal burner beehive kiln, talk to your doctor.??Most household and yardappliances will not cause any problems. ???Call your doctor if you have any symptoms that your pacemaker isn't working correctly. These include dizziness or palpitations. If a signal interferes If your pacemaker is near one of the devices described above, it may interfere with the electrical signal and stop the pacemaker from working correctly. If you think you were exposed to a signal likethis, call your doctor and explain what happened. Also call your doctor if you sense any interference with your device. What???s OK Below are some of the many things that are safe to use when you have a pacemaker: ???Microwave ovens ???Computers ???Hair dryers ???Household power tools ???Radios, TVs, and CD players ???Bluetooth headsets ???Electric blankets and heating pads ???Vacuum conference services coordinator ???Riding in a car Follow up Plan to have regular checkups with your healthcare provider to check the battery life of your pacemaker. Your provider can also make sure the pacemaker is working correctly. For many devices, device function and battery life can be checked with a remote monitor set up in your home. On average, thisshould happen every 6 months, or as advised by your healthcare provider. Battery life, lead wire condition, and various functions are checked by doing a device interrogation. During an interrogation, the device is connected to a device community recreation programmer using a special wand placed on the skin over the pacemaker. The data is sent from the device to the community recreation programmer and assessed. Most in-home device interrogation systems use wireless technology to connect the device to special equipment. The equipment records the data and sends the information to your doctor. Depending on your device and how much your body uses the pacing functions of the pacemaker, you will need a new pacemaker generator (or battery) implanted at some point, usually about every 8 to 10 years. ?? 7023-0369 [employer]. All rights reserved. This information is not intended as a substitute for professional medical care. Always follow your healthcare professional's instructions. 02/20/2023 09:51:35 Biventricular Pacemaker and ICD (Biventricular ICD) Biventricular Pacemaker and ICD (Biventricular ICD)?? You have a condition called heart failure. This condition causes symptoms such as getting tired very quickly and being short of breath. To help treat these symptoms, your healthcare provider is recommending a biventricular pacemaker and implantable cardioverter defibrillator (ICD). This is sometimes called a biventricular ICD. It's also called cardiac resynchronization pacing with an ICD (PAPER BAG MAKING MACHINIST-D).??A biventricular pacemaker and ICD is a small, lightweight device powered by batteries. This device helps keep your heart pumping normally. It also protects you from dangerous heart rhythms. Understanding the heart The heart is made up of??4 chambers that pump to move blood through the heart. The top??2 chambers are the left atrium and right atrium. These are filling chambers of the heart. The bottom chambers are the left ventricle and right ventricle. These are the pumping chambers of the heart. Heart beats are electrically generated within the right atrium from a structure called the sinus node. This electrical signal is then transmitted from the atria to the ventricles over specialized wires called theAV node and bundle branches. These bundle branch wires extend into the left and right ventricles and allow coordinated contraction of the left and right ventricle. How the device works People with heart failure often have damaged or weakened heart muscle in the ventricles. The bundlebranch wires which run through the muscle can also be damaged resulting in uncoordinated timing of the left and right ventricles. As a result, the ventricles don???t pump as efficiently as they should. ??The pathways that carry the heart's electrical signals are located in the heart muscle. They can also be damaged by heart failure. This can cause a bundle branch block. A bundle branch block can throw off the timing of the heart's contraction. This can make the heart's squeezing contraction even weaker. A biventricular pacemaker and ICD help keep the heart pumping in a more normal way. The pacemaker keeps the heart from beating too slowly. It tries to restore the normal squeezing pattern of the heart. This is called resynchronization pacing.??This can lead to more efficient and stronger heart contraction. The ICD part of the device detects dangerously fast heart rhythms and attempts to terminatethem with either pacing or delivering a shock. The bursts of pacing or delivery of a shock often stops this dangerous heart rhythm and restores a normal heartbeat. Before the procedure Make sure to: ???Follow any directions you are given for not eating or drinking before surgery. ???Follow instructions from your doctor about bathing the night before and the morning of your procedure. You may need to use a special cleaning solution. ???Tell your doctor what medicines you take. This includes [id number] medicines such as ibuprofen. It also includes vitamins, herbs, and other supplements. You may need to stop taking some medicines before the procedure, such as blood thinners and aspirin. ???Tell your doctor if you are sensitive or allergic to anything. This includes medicines, latex, tape, and anesthetic medicines. ???Ask a family member or friend to take you home from the hospital. Tests before your procedure Before your procedure you may need tests such as: ???Chest X-ray ???Blood tests, to test your general health ???Echocardiogram to assess your heart's function and electrocardiogram to assess your heart rhythm During the procedure ???You will get medicine (anesthesia) so you won???t feel pain. Most likely, you will get medicine (sedation) that will make you drowsy or lightly asleep. The doctor will inject local pain medicine to numb the skin on your chest where the cut (incision) will be made. ???The doctor will make an incision where the device will be implanted. This is most often on the left side of the chest just below the collarbone. ???The doctor makes a small ???pocket?? for the generator under the skin. ???The doctor will put a thin, flexible tube (catheter) into a vein leading to the right atrium. They will guide the device???s wires (leads) through the catheter to the heart. The doctor will use anX-ray monitor to move the leads into the right ventricle. They will usually also put a lead in the right atrium. ???The doctor will put the lead for the left ventricle into a vein that runs along the outside of this chamber. They will also use the X-ray monitor to put this lead in the correct spot. The device will stimulate the left ventricle from the outside. The other leads will stimulate the heart from inside the chambers. ???The doctor will attach the generator to the leads. They will send pulses through the leads to test the generator. This testing may cause your heart to race. ???The doctor will then put the generator into the pocket under your skin. ???The doctor will program the device based on the heart rate that???s best for you. They will check the device to see that it's working. ???The doctor will close the skin with stitches, surgical glue, or rere. Any stitches used will likely be dissolve on their own over time. If glue is used, it will seal the cut and prevent infection. A bandage will be put on the area. After the procedure You will spend several hours in a recovery room. Once you are stable and awake, you will be put in a room that can monitor your heart rhythm. Your healthcare team will also watch your breathing and other vital signs. You???ll be given pain medicine if you need it. The team may place the arm on the side of the device in a sling. This is just for a short time, to keep the arm and shoulder still. You will have a chest X-ray to make sure the leads are where they should be. The doctor will also check that your lungs were not injured during the procedure. You can resume a normal diet as soon as you are able. You will be watched overnight. The team will check the device the next morning. You will likely go home the day after your procedure. You may need to take antibiotics for several days to prevent infection. Recovering at home Follow all the instructions your healthcare provider gives you for medicines, bathing, exercise, diet, and wound care. Ask your doctor when you can go back to work or start driving again. Don???t raise your arm above your shoulder on the side of your incision until your doctor says it???s OK to do so. Usually this is in about 3 to 4 weeks. This gives the leads a chance to secure themselves inside your heart. Follow-up care Make sure to keep all your follow-up appointments. This is so your doctor can download information from your device and check its settings. Be sure to tell your doctor how the device is working for you. Most devices can now be connected to a wireless home monitoring system via the internet. The monitor can download information from your device and send it to your doctor. This lets your doctor make sure the device is working as it should. Life with a biventricular pacemaker and ICD ???Carry an ID card. When you first get your device , you???ll be given an ID card to carry. This card contains important information about the device. Show it to any doctor, dentist, or other provider you visit. Pacemakers may set off metal detectors. So you may need to show your card to security personnel. ???Be careful when using a cell phone and other electronic devices. Keep them at least 6 inches away from your pacemaker or ICD. It's safest to hold all cell phones to the ear farther from your pacemaker or ICD or use the speaker mode setting. Don???t carry your phone or electronic device in your chest pocket, over the pacemaker or ICD. Experts advise carrying your cell phone and other electronics in a pocket or bag below your waist. Most cell phones and electronic devices don't interfere with pacemakers or ICDs. But some cell phones and electronic devices such as smart watches use powerful magnets for wireless charging. These may interfere with the normal function of your pacemaker or ICD. The magnet used for charging or other magnet accessories can also interfere with the normal function of your pacemaker or ICD. These devices should be kept away from your pacemaker or ICD when wirelessly charging or stored. Follow any other instructions given to you by your healthcare provider or from the manufacturer's representative of your pacemaker or ICD. ???Stay away from very strong magnets. Most modern devices are MRI compatible but may need to be reprogrammed before undergoing an MRI scan. When going through security screening such as at an airport, show your ID card to security so that they can take the proper precautions for your device duringscreening. ???Stay away from strong electrical howard. Some electrical generators may create enough electromagnetic interference which can affect the normal function of your device. Avoid direct contact or close proximity to industrial generators. Most household and yard appliances will not cause any problems. Avoid touching the engine block of a running car engine. If you use any large power tools, such [employer] charcoal burner beehive kiln, talk to your doctor.?Keep an eye on the battery. The battery inside the device is checked regularly. It will last 8 to 10 years or possibly longer, depending on how often it paces or has to stop dangerous heart rhythms. Once it starts to run down, you will need to have it changed. This is like the implantation surgery, but it takes less time. This is because typically the battery/generator is the only part that needs to be replaced. ???Be careful when driving. Your device has a defibrillator built in. It's recommended that you avoid driving for as long as your provider advises after implant. You may also not be allowed to drive for a period of time after the defibrillator delivers a shock or if you had a prior episode of cardiac arrest. You will not be allowed to work as a commercial photographer if you have an ICD. When to call your healthcare provider Call 911 if you have chest pain or trouble breathing. Call your healthcare provider if you have any of the following: ???Redness, severe swelling, severe pain, drainage, bleeding, or warmth at the incision site ???Incision site or opens up or does not heal well ???A fever of 100.4??F (38??C) or higher, or as directed by your healthcare provider ???Pain around the generator that gets worse ???Swelling in the arms or hands on the side of the incision ???Sudden weight gain ???Twitching chest or abdominal muscles ???Frequent or constant hiccups ???A shock from your device ???Very fast heartbeat that doesn???t stop ???Generator feels loose or like it is wiggling in the pocket under the skin? [employer]. All rights reserved. This information is not intended as a substitute for professional medical care. Always follow your healthcare professional's instructions. 02/20/2023 09:51:13 Understanding Atrial Fibrillation Understanding Atrial Fibrillation An arrhythmia is any problem with the speed or pattern of the heartbeat. Atrial fibrillation (AFib)is the most common type of arrhythmia. It causes fast, chaotic electrical signals in the atria. This makes it hard for the heart to work as it should. It also affects how much blood your heart can pump out to the body. AFib may occur once in a while and go away on its own. This is called paroxysmal. Or it may continue for longer periods and need treatment. This is called persistent. AFib can lead to serious problems, such as stroke. Your healthcare provider will need to monitor and manage your condition. What happens during atrial fibrillation??? The heart has an electrical system that sends signals to control the heartbeat. As signals move through the heart, they tell the heart???s upper chambers (atria) and lower chambers (ventricles) when to squeeze (contract) and relax. This lets blood move through the heart and out to the body and lungs. With AFib, the atria receive abnormal signals. This causes them to contract in a fast and irregularway, and out of sync with the ventricles. When this happens, the atria also have a harder time moving blood into the ventricles. Blood may then pool in the atria. This increases the risk for blood clots and stroke. The ventricles also may contract too quickly and irregularly. As a result, they may not pump blood to the body and lungs as well as they should. This can weaken the heart muscle over time and cause heart failure. What causes atrial fibrillation? AFib is more common in older adults. It has many possible causes: ???Older age ???Coronary artery disease ???Heart valve disease ???Heart attack ???Heart surgery ???High blood pressure ???Thyroid disease ???Diabetes ???Lung disease ???Sleep apnea ???Heavy alcohol use In some cases of AFib, healthcare providers don't know the cause. What are the symptoms of atrial fibrillation? AFib may not cause symptoms. If symptoms do occur, they may include: ???A fast, pounding, irregular heartbeat ???Shortness of breath ???Tiredness ???Dizziness or fainting ???Chest pain How is atrial fibrillation treated? Treatments for AFib can include any of the options below. ???Medicines. You may be prescribed: oHeart rate medicines to help slow down the heartbeat oHeart rhythm medicines to help the heart beat more regularly oBlood thinners or anti-clotting medicines to help reduce the risk for blood clots and stroke ???Left atrial appendage closure. Your healthcare provider may advise this device to prevent stroke. You may need it if you are at high risk for stroke but have problems taking blood-thinner (anticoagulant) medicines. The device is placed in the part of the heart where most clots form. This area iscalled the left atrial appendage (SHILA). It's a pouch-like structure in the muscle wall of the left atrium. The device closes off the SHILA to prevent clots moving from the heart to the brain and causing a stroke. This is a nonsurgical procedure done through a catheter in the groin. ???Electrical cardioversion. Your healthcare provider uses special pads or paddles to send one or more brief electrical shocks to the heart. This can help reset the heartbeat to normal. ???Ablation. Long, thin tubes (catheters) are threaded through a blood vessel to the heart. There, the catheters send out hot or cold energy to the areas causing the abnormal signals. This energy destroys the problem tissue or cells. This improves the chances that your heart will stay in normal rhythm without using medicines. If your heart rate and rhythm can???t be controlled, you may need an AVnode ablation and a pacemaker. These will help control the heart rate and regularity of the heartbeat. ???Surgery. During surgery, your healthcare provider may use different methods to create scar tissue in the areas of the heart causing the abnormal signals. The scar tissue disrupts the abnormal signals and may stop AFib from occurring. Most often, the left atrial appendage is closed off as well. ???Hybrid surgical-catheter ablation for AFib. This treatment is used for people with AFib that continues or is hard to treat. It combines surgery with a catheter ablation. During the surgery, the surgeon makes small cuts (incisions) between the ribs in the chest or in the abdomen near the sternum.The surgeon puts a scope through the incisions to get to the backside and other areas of the heart.This is to deliver energy to the surface of the atria and disrupt the abnormal electrical signals. The catheter portion of the procedure is done by putting a catheter into a vein in the groin. The catheter is guided to the inside of the heart. Using the catheter, radiofrequency ablation is done to d estroy additional tissue inside the heart that is causing the AFib. It's also done to assess the success of the surgical lesions. Using both of these approaches may work better to block the abnormal electrical signals and be a more permanent treatment for persistent AFib. What are possible complications of atrial fibrillation? Complications can include: ???Blood clots ???Stroke ???Dementia ???Heart failure. This problem occurs when the heart muscle weakens so much that it can no longer pump blood well. When should I call my healthcare provider? Call your healthcare provider right away if you have any of these: ???Symptoms that don???t get better with treatment, or get worse ???New symptoms ?? 9260-9522 [employer]. All rights reserved. This information is not intended as a substitute for professional medical care. Always follow your healthcare professional's instructions. 02/20/2023 09:51:02 Low-Salt Choices Low-Salt Choices Eating salt??(sodium)??can make your body retain too much water. Extra water makes your heart work harder. Canned, packaged, and frozen foods are easy to prepare. But they are often high in sodium. Here are some ideas for low-salt foods you can easily make yourself. For breakfast ???Fruit or 100% fruit juice. It's better to have whole fruit instead of 100% fruit juice. ???Whole-wheat bread or an Romansh muffin. Look for sodium content on Nutrition Facts labels. ???Low-fat milk or yogurt ???Unsalted eggs ???Shredded wheat ???[place] tortillas ???Unsalted steamed rice ???Regular (not instant) hot cereal, made without salt Stay away from ???Sausage, vang, and ham ???Flour tortillas ???Packaged muffins, pancakes, and biscuits ???Instant hot cereals ???Cottage cheese For lunch and dinner ???Fresh fish, chicken, turkey, or meat???baked, broiled, or roasted without salt ???Dry beans, cooked without salt ???Tofu, stir-fried without salt ???Unsalted fresh fruit and vegetables, or frozen or canned fruit and vegetables with no added salt Stay away from ???Lunch or deli meat that is cured or smoked ???Cheese ???Tomato juice and ketchup ???Canned vegetables, soups, and fish not labeled as [id number] or reduced sodium ???Packaged gravies and sauces ???Olives, pickles, and relish ???Bottled salad dressings For snacks and desserts ???Yogurt ???Unsalted, air-popped popcorn ???Unsalted nuts or seeds Stay away from ???Pies and cakes ???Packaged dessert mixes ???Pizza ???Canned and packaged puddings ???Pretzels, chips, crackers, and nuts???unless the label says unsalted ?? 9202-8360 [employer]. All rights reserved. This information is not intended as a substitute for professional medical care. Always follow your healthcare professional's instructions. 02/20/2023 09:51:01 Living with Atrial Fibrillation: Preventing Stroke Living with Atrial Fibrillation: Preventing Stroke Atrial fibrillation (AFib) is the most common abnormal heart rhythm. The heart has two upper chambers called atria and two lower chambers called ventricles. AFib causes the atria to quiver (fibrillate) instead of pumping normally. Blood can then pool in the heart instead of moving in and out as usual. This can cause blood clots to form in the heart. A clot can break free, travel to the brain, andcause a stroke. A stroke can quickly damage the brain. Taking medicine to prevent stroke Your healthcare provider may prescribe a medicine to help prevent blood clots if you have AFib. This type of medicine is called a blood thinner. Blood thinners include: ???Antiplatelet medicines such as aspirin or clopidrogrel ???Anticoagulant medicines, such as warfarin, or medicines called direct-acting oral anticoagulants(DOACs). These include dabigatran, rivaroxaban, apixaban, and edoxaban. Risks of blood thinner medicine Blood thinners raise your risk of bleeding. If you take certain blood thinners, you may need to take extra steps to stay healthy. Depending on the blood thinner, you may need regular blood tests to check the levels of medicine in your blood. You???ll need to be careful not to injure yourself. And you may need to watch your diet for foods that affect blood clotting. If your blood is too thin, you may have symptoms of excess bleeding. These include: ???Unusual bruising ???Bleeding from the gums ???Blood in the urine or stool ???Black stools ???Vomiting blood ???Nosebleeds ???An unusual or severe headache Taking the right dose Take the medicine exactly as directed by your healthcare provider. Take it at the same time each day. If you miss a dose, call your provider right away to find out how much to take. Never take a double dose. If you take too much, it can cause too much bleeding. It can cause bleeding you can see on the outside of your body. It can also cause bleeding on the inside of your body that you may not be aware of. Getting your blood tested If you take DOACs, you don't need frequent blood tests. But you may need to have your kidneys checked regularly. Your healthcare provider will discuss this with you. If you take warfarin, you will need to have your blood tested on a regular schedule. This is to make sure you don???t have too much or too little of the medicine in your blood. Too much can cause extra bleeding. Too little may not prevent blood clots from harming you. You may need to visit a hospital or clinic every week to have your blood tested. Or a nurse may come to your home and test your blood. In some cases, you may be able to test your blood at home yourself with a small machine. Talk with your healthcare provider to find out what???s best for you. Afterthe blood test, your healthcare provider may tell you to change your dose of medicine. Watching your diet Warfarin levels can change with your diet. For example, many foods contain vitamin K. Vitamin K helps your blood clot. You don???t need to stop eating foods that have vitamin K. But you do need to keep the amount of them you eat as steady as possible from day to day. Foods high in vitamin K are asparagus, avocado, broccoli, cabbage, kale, spinach, and some other leafy green vegetables. Soybean, canola, and olive oils are also high in vitamin K. Other foods and drinks can affect the way blood thinners work in your body. These include: ???Grapefruit and grapefruit juice ???Cranberries and cranberry juice ???Fish oil supplements ???Garlic, tapan, licorice, and turmeric ???Herbs used in herbal teas or supplements ???Alcohol If any of these items are part of your regular diet, continue using them as you normally would. Don???t make any big changes in your diet without first talking with your healthcare provider. You may also need to limit fats in your diet to 2 to 4 tablespoons a day. Preventing injury Because blood thinners make you bleed more, you???ll need to protect yourself from breaks in the skin. Follow these guidelines: ???Don't go barefoot. Always wear shoes. ???Don't trim corns or calluses yourself. ???Use an electric razor instead of a manual one. ???Use a soft-bristled toothbrush and waxed dental floss. You???ll also need to not do any activities that may cause injury. If you fall or are injured, you could be bleeding inside your body and not know it. Get medical care right away if you fall, hit your head, or have any other kind of injury. Other safety tips While on your medicine: ???Tell all of your healthcare providers that you take a blood thinner for AFib. This includes all of your doctors, dental care providers, and your pharmacist. ???Ask your healthcare provider before taking any new medicines, vitamins, or other supplements. Any of these can cause problems when you take a blood thinner. ???Wear a medical alert bracelet or carry an ID card in your wallet if you will be taking blood thinners for months or longer. ???Keep all appointments for your blood tests. Procedures to prevent stroke Most blood clots that form in the heart occur in a pouch of the left atrium called the appendage. This pouch can often be large and have multiple lobes. Blood often pools and forms clots here. Left atrial appendage closure is a nonsurgical procedure in which a plug is placed at the opening of the left atrial appendage. This closes it off from the rest of the heart. Once the plug has sealed, no blood can enter or leave the pouch. This reduces blood clot formation and stroke risk. It often does not require you to use blood thinners for the long -term except for aspirin. Ask your healthcare provider if you qualify for this type of procedure. Other ways to help prevent stroke Your healthcare provider might give you other advice about how to lower your risk for stroke. Tips include: ???Lower your cholesterol with lifestyle changes or medicine ???Don't smoke ???Get physical activity ???Lose weight if needed ???Eat a heart-healthy diet ???Don't drink too much alcohol When to call your healthcare provider Call your healthcare provider right away if you have any of these: ???Unusual or severe headache ???Confusion, weakness, or numbness ???Loss of vision ???Trouble with speech ???Bleeding that won???t stop ???Coughing or vomiting blood ???Bright red blood or black tar in the stool ???Fall or injury to the head ???Symptoms of AFib that are new or getting worse ?? 6140-5733 [employer]. All rights reserved. This information is not intended as a substitute for professional medical care. Always follow your healthcare professional's instructions. 02/20/2023 09:50:56 Atrial Fibrillation, Discharge Instructions Discharge Instructions for Atrial Fibrillation You have been diagnosed with an abnormal heart rhythm called atrial fibrillation (AFib).??This means your heart???s 2 upper chambers quiver rather than squeeze the blood out in a normal pattern. Thisleads to an irregular and sometimes rapid heartbeat. Some people will have symptoms such as a flip-flopping heartbeat, chest pain, lightheadedness, or shortness of breath. Other people may have no symptoms at all. AFib is serious because it affects the heart???s ability to fill with blood as it should. Blood clots may form. This increases the risk for stroke. Untreated, it can also lead to heart failure. AFib can be controlled. With??treatment, most??people lead normal lives. Treatment options Treatment for AFib depends on your age, symptoms, how long you have had it, and other factors. You will have??a complete evaluation to find out if you have any abnormalities that caused your heart togo into AFib. This might be blocked heart arteries, heart valve problems, or a thyroid problem. Your doctor will assess your case and discuss choices with you. Treatment choices may include: ???Treating an underlying??disorder that puts you at risk for atrial fibrillation. For example, correcting an abnormal thyroid or electrolyte problem, or treating a blocked heart artery. ???Restoring a normal heart rhythm with an electrical shock (cardioversion) or with an antiarrhythmic medicine (chemical cardioversion). ???Using medicine to control your heart rate and rhythm. ???Taking blood-thinning medicines (anticoagulants). These lower the??risk for blood clot and stroke. Blood-thinners range from aspirin and clopidogrel to others such as rivaroxaban and warfarin. ???Having a procedure such as left atrial appendage closure. In this procedure, a small pouch in the top of your atrium is blocked off. This pouch is where blood clots often form. The procedure can prevent blood clots and reduce stroke risk without the need for a blood thinner. ???Doing catheter ablation or a surgical maze procedure. These??procedures use different methods tocreate scar tissue in certain areas of heart. This stops the abnormal electrical signals that causeAFib.??This may be an option when??medicines don't work. It may be used instead of taking a medicine terminal operations supervisor. Your provider may advise other treatment choices. Managing risk factors for stroke and preventing heart failure are important parts of any??treatmentplan for AFib. Home care ???Take your medicines exactly as directed. Don???t skip doses. ???Work with your healthcare provider to find the right medicines and doses for you. ???Learn to take your own pulse. Keep a record of your results. Ask your provider which pulse ratesmean that you need medical attention. Slowing your pulse is often the goal of treatment. Ask your provider if it???s OK for you to use an automatic machine to check your pulse at home. Sometimes these machines don???t count the pulse correctly with AFib. ???Limit how much coffee, tea, cola, and other drinks with caffeine you have. Ask your provider if you should cut out all caffeine. ???Don't take awdi-eea-tlyijou medicines that have caffeine in them. Also don't take medicines withpseudoephedrine. ???Let your provider know what medicines you take. These include prescription and kmjk-mux-adqujzk medicines, as well as any supplements. They interfere with some medicines given for AFib. ???Ask your provider if ??you can drink alcohol. Some people need to cut out??alcohol??to better treat AFib. If you are taking blood-thinner medicines, alcohol may interfere with them by increasing their effect. ???Never take stimulants such as amphetamines or cocaine. These drugs can speed up??your heart rateand trigger AFib. ???Manage your weight. If you are above your ideal body weight, losing excess pounds can reduce your incidence of AFib. Follow-up care Follow up with your healthcare provider as advised. When to call your healthcare provider Call your healthcare provider right away if you have any of the following: ???Weakness ???Dizziness ???Fainting ???Tiredness (fatigue) ???Shortness of breath ???Chest pain with increased activity ???A change in the usual regularity of your heartbeat, or an unusually fast heartbeat ?? [id number] [employer]. All rights reserved. This information is not intended as a substitute for professional medical care. Always follow your healthcare professional's instructions. 02/20/2023 09:50:54 Diabetes and Heart Disease Diabetes and Heart Disease If you have diabetes, you're??2 to 4 times more likely to have heart disease than someone without diabetes. And you're likely to get it at a younger age. This higher risk is because of diabetes. But it's also because of other risk factors for heart disease that happen in people with diabetes. But there???s good news. You can help??control your health risks by making some changes in your life. Youcan take steps to cut your risk for heart disease by half. This is similar to the risk in people who don't have diabetes. Take your medicines as directed each day, even if you feel fine. Your main risk factors Three major risk factors for heart disease are high blood sugar, high blood pressure, and high levels of fat in the blood (lipids). By controlling these things, you can help keep your heart and arteries healthy. This may cut your chances of a heart attack. ???Blood sugar.??High blood sugar can make artery root tough and rough. Plaque is waxy material inthe blood. It can then build up along the artery root. This makes it harder for blood to flow through the arteries. High blood sugar also raises the chances of having high blood pressure and high cholesterol. ???Blood pressure. When blood pressure is high all the time, it causes your heart to work harder topump blood. Artery root become damaged. This makes it more likely for plaque to build up. ???Lipids.??Your body needs some blood fats (lipids) to stay healthy. But lipid levels that are toohigh can harm artery root. Lipids include cholesterol and triglycerides. There are 2 kinds of cholesterol. LDL (???bad?? ) cholesterol can damage the arteries. But HDL (???good?? ) cholesterol helpsclear LDL from the blood vessels. This helps keep the arteries healthy. When blood sugar is high, the level of triglycerides in the blood may also be high. This??can also cause plaque to form.?? Other risk factors Certain lifestyle factors can raise levels of your blood sugar, blood pressure, and lipids. Higher levels raise your risk for heart disease: ???Smoking. Smoking??damages the lining of your arteries. This allows plaque to build up in the artery root. It also narrows the arteries. This can raise blood pressure and cause chest pain (angina). Smoking also raises your risk of getting type 2 diabetes. Also don't use e-cigarette, or vaping, products. ???Not being active. Not being active??makes it harder for your heart to do its work. Inactivity islinked to many other problems, such as high blood pressure and high cholesterol levels. Inactivity also increases your risk of getting type 2 diabetes. ???Being overweight. Being overweight??makes it harder for your body to use insulin. It also makes your heart work too hard. Being overweight is also 1 of the main risk factors leading to type 2 diabetes,?? Changes you can make The simple steps below can help keep your risk factors under control. Work with your healthcare team to reach your goals. ???Quit smoking. Quitting smoking??could save your life. Smoking harms the lining of the blood vessels and raises blood pressure. It also affects how your body uses insulin. This makes it harder to keep blood sugar under control. If you smoke and need help quitting, talk with your healthcare team.?Test your blood sugar. Checking your blood sugar is the only way to know if it's under control. Test your blood sugar yourself. Also get tested in the lab, as directed. ???Check your blood pressure and lipids. Monitoring your blood pressure and lipid levels can help you stay at safe levels. Visit your healthcare team as scheduled. ???Take medicines as directed. This can help control blood sugar, blood pressure, blood clotting, and cholesterol levels. Several medicines for diabetes also lower your risk for heart attacks and strokes. ???Eat healthy. Eating??healthy foods can cut your risk factors and help you lose weight. Try to limit the amount of processed or refined carbohydrates you eat at one time. Cut back on your total calories. Eat foods low in saturated fat and cholesterol. Eat fiber, including vegetables and whole grains, and cut down on salt. A dietitian or parent educator can help make a meal plan that works foryou???even if you're on a limited budget.?Limit alcohol. Drinking alcohol even in low or moderate amounts can increase your body's sensitivity to insulin. But it also places you at greater risk for low blood sugar reactions. ???Be active.??Physical exercise can help reduce your weight, strengthen your heart, and lower yourlipid levels and blood pressure. Exercise and activity are good for your whole body. Talk to your healthcare team about increasing your activity safely over time. ???Keep your appointments.??Regular visits with your healthcare provider help you stay healthy. Go in for checkups and lab tests as scheduled. ?? [id number] [employer]. All rights reserved. This information is not intended as a substitute for professional medical care. Always follow your healthcare professional's instructions. 02/20/2023 09:50:51 Eating Heart-Healthy Foods Eating Heart-Healthy Foods Eating has a big impact on your heart health. In fact, eating healthier can improve several of yourheart risks at once. For instance, it helps you manage weight, cholesterol, and blood pressure. Here are ideas to help you make heart- healthy changes without giving up all??the foods and flavors you love. Getting started ???Talk with your healthcare provider about eating plans, such as the DASH or Mediterranean diet. You may also be referred to a dietitian. ???Change a few things at a time. Give yourself time to get used to a few eating changes before adding more. ???Work to create a tasty, healthy eating plan that you can stick to for the rest of your life. Goals for healthy eating Below are some tips to improve your eating habits: ???Limit saturated fats and trans fats. Saturated fats raise your levels of cholesterol, so keep these fats to a minimum. They are found in foods such as fatty meats, whole milk, cheese, and palm andcoconut oils. Avoid trans fats because they lower good cholesterol as well as raise bad cholesterol. Trans fats are most often found in processed foods, such as pastries, cookies, pies, muffins, fried foods, stick margarines, and shortening. ???Reduce how much sodium (salt) you have. Eating too much salt may increase your blood pressure. Limit your sodium intake to 2,300 milligrams (mg) per day??(the amount in 1 teaspoon of salt), or less if your healthcare provider recommends it. Dining out less often and eating fewer processed foods are two great ways to decrease the amount of salt you consume. At home, flavor your foods with otherspices and herbs instead of salt. ???Managing calories. A calorie is a unit of energy. Your body morales calories for fuel, but if you eat more calories than your body morales, the extras are stored as fat. Your healthcare provider can help you create a diet plan to manage your calories. This will likely include eating healthier foods and getting regular exercise. To help you track your progress, keep a diary to record what you eat and how often you exercise. Choose the right foods Aim to make these foods rere of your diet. If you have diabetes, you may have different recommendations than what is listed here: ???Fruits and vegetables provide plenty of nutrients without a lot of calories. At meals, fill halfyour plate with these foods. Choose between fresh, frozen, canned, or dried without added sauces, salt, or sugars. Split the other half of your plate between whole grains and lean protein. ???Whole grains are high in fiber and rich in vitamins and nutrients. Good choices include whole wheat bread, pasta, oats, and brown rice. Make at least half of your grains whole grains. ???Lean proteins give you nutrition with less fat. Good choices include fish, skinless chicken and turkey, and beans. Draining the fat from cooked ground meat is another way to reduce the amount of fat you eat. ???Low-fat and nonfat dairy provide nutrients without a lot of fat. Try low-fat or nonfat milk, cheese, or yogurt. ???Healthy fats can be good for you in small amounts. These are unsaturated fats, such as olive oil, nuts, and fish. Try to have at least 2 servings per week of fatty fish, such as salmon, sardines, mackerel, rainbow trout, and albacore tuna. These contain omega-3 fatty acids, which are good for your heart. Flaxseed and walnuts are other sources of heart-healthy fats. More on heart-healthy eating Read food labels Healthy eating starts at the grocery store. Be sure to pay attention to food labels on packaged foods. Look for products that are high in fiber and protein, and low in saturated fat, added sugars, and sodium. Avoid products that contain trans fat. And pay close attention to serving size. For instance, if you plan to eat two servings, double all the numbers on the label. Prepare food right A porter part of healthy cooking is cutting down on added fat, sugar and salt. Look on the internet for lower-fat, lower-sodium recipes without a lot of added sugars. Also try these tips: ???Remove fat from meat and skin from poultry before cooking. ???Skim fat from the surface of soups and sauces. ???Broil, roast, boil, bake, steam, grill, or microwave food without added fats. ???Choose ingredients that spice up your food without adding calories, fat, sugar, or sodium. Try these items: horseradish, hot sauce, lemon, mustard, nonfat salad dressings, and vinegar. Small amounts of olive oil-based vinaigrettes are OK, too. For salt-free herbs and spices, try basil, cilantro, cinnamon, cumin, paprika, pepper, and park. ?? [id number] [employer]. All rights reserved. This information is not intended as a substitute for professional medical care. Always follow your healthcare professional's instructions. Implantable Device List Procedure Provider Procedure Date Device Type Site Insertion Defibrillator Unknown 02/19/23 Unknown [facility] Device Identifier Serial Number Lot or Batch Number Manufacturing Date Expiration Date Distinct Identification Code MRI Safety Implantable Status Assigning Authority Unknown N/A [id number] Unknown 09/18/24 Unknown Unknown Active Unknown Unknown [id number] N/A Unknown 01/31/24 Unknown Unknown Active Unknown Unknown [id number] N/A Unknown 09/07/24 Unknown Unknown Active Unknown Unknown [id number] N/A Unknown 03/28/23 Unknown Unknown Active Unknown Unknown [id number] 12V N/A Unknown 06/07/23 Unknown Unknown Active Unknown Nurse Progress note * Bernie Vasquez RN: PERFORM Event Display: Progress Note-Nurse Authored Date: patient and spouse claim all personal items present upon discharge Discharge summary * Nancy MODI, Jordan Cruz: PERFORM, MODIFY Event Display: Discharge Summary Authored Date: Patient Information Attending Physician: Margi Plummer MD Admitting Diagnosis: aicd placement [facility] Primary Care Physician: My Travis MD Admit Date/Time: 02/19/23 07:00 Discharge Diagnosis BPH (benign prostatic hyperplasia) (N40.0) Cardiomyopathy (I42.9) Atrial fibrillation, chronic (I48.20) _ Surgical Procedures Insertion Defibrillator BIVENTRICULAR AUTOMATIC IMPLANTABLE CARDIOVERTER DEFIBRILLATOR 02/19/2023 13:58 ?? Discharge Medications amiodarone (amiodarone 200 mg oral tablet)?100?Milligram?By Mouth?Daily?for 30?Days apixaban (apixaban 5 mg oral tablet)?5?Milligram?1?Tabs?By Mouth?2 Times a Day aspirin (aspirin 81 mg oral tablet, chewable)?81?Milligram?1?Tabs?Chewed?Daily atorvastatin (atorvastatin 40 mg oral tablet)?40?Milligram?1?Tabs?By Mouth?at Bedtime enalapril (enalapril 10 mg oral tablet)?10?Milligram?1?Tabs?By Mouth?Daily finasteride (Proscar 5 mg oral tablet)?5?Milligram?1?Tabs?By Mouth?Daily FLUoxetine (PROzac 20 mg oral capsule)?20?Milligram?1?Capsules?By Mouth?Daily furosemide (furosemide 40 mg oral tablet)?40?Milligram?1?Tabs?By Mouth?2 Times a Day?Administer at 9 am and 2 pm?for 30?Days levothyroxine (Synthroid 25 mcg (0.025 mg) oral tablet)?25?Microgram?1?Tabs?By Mouth?Daily loratadine (loratadine 10 mg oral tablet)?10?Milligram?1?Tabs?By Mouth?Daily metFORMIN (metFORMIN 500 mg oral tablet)?500?Milligram?1?Tabs?By Mouth?Daily?as needed?Blood Glucose (please specify)?for blood sugar over 200 metoprolol (Metoprolol Succinate ER 50 mg oral tablet, extended release)?50?Milligram?1?Tabs?By Mouth?at Bedtime pantoprazole (Protonix 20 mg oral enteric coated tablet)?20?Milligram?1?Tabs?By Mouth?Daily spironolactone (spironolactone 25 mg oral tablet)?25?Milligram?1?Tabs?By Mouth?Daily sulfamethoxazole-trimethoprim (Bactrim DS 800 mg-160 mg oral tablet)?0.5?Tabs?By Mouth?2 Times a Day?for 5?Days tamsulosin (tamsulosin 0.4 mg oral capsule)?0.4?Milligram?1?Capsules?By Mouth?2 Times a Day ? Inpatient Medications Medications (16) Active SCHEDULED: (14) amiodarone 200 mg Tab (amiodarone) ??100 mg 0.5 Tabs, Oral, Daily apixaban 5 mg Tab (apixaban) ??5 mg 1 Tabs, Oral, BID aspirin 81 mg Chew Tab (aspirin) ??81 mg 1 Tabs, Chewed, Daily atorvastatin 40 mg Tab (atorvastatin) ??40 mg 1 Tabs, Oral, qHS finasteride 5 mg Tab (Proscar) ??5 mg 1 Tabs, Oral, Daily FLUoxetine 20 mg Cap (PROzac) ??20 mg 1 Caps, Oral, Daily furosemide 40 mg Tab (furosemide) ??40 mg 1 Tabs, Oral, BID levothyroxine 25 mcg (0.025 mg) Tab (Synthroid) ??25 mcg 1 Tabs, Oral, Daily lisinopril 10 mg Tab (lisinopril) ??10 mg 1 Tabs, Oral, Daily loratadine 10 mg Tab (loratadine) ??10 mg 1 Tabs, Oral, Daily metoprolol succinate 50 mg XL Tab (Metoprolol Succinate ER) ??50 mg 1 Tabs, Oral, qHS pantoprazole 20 mg Oral EC Tab (Protonix) ??20 mg 1 Tabs, Oral, Daily spironolactone 25 mg Tab (spironolactone) ??25 mg 1 Tabs, Oral, Daily tamsulosin 0.4 mg SA Cap (tamsulosin) ??0.4 mg 1 Caps, Oral, BID CONTINUOUS: (0) PRN: (2) acetaminophen 325 mg Tab (acetaminophen) ??650 mg 2 Tabs, Oral, q4H hydrALAZINE 20 mg/mL vial (hydrALAZINE 20 mg/mL injectable solution) ??10 mg 0.5 mL, IV Push, q4H ? 72 hour Antibiotic History Completed/Discontinued Antibiotics?? Stop Date/Time?? Last Administered?? First Administered clindamycin?600 mg, 50 mL, 100 mL/hr, IV Piggyback, q8H Interval?? 02/20/2023 08:02 02/20/2023 06:12?? 02/19/2023 21:01 clindamycin 600 mg?IV, Stop: 02/19/23 14:48:00 CDT?? 02/19/2023 14:07 02/19/2023 13:48?? 02/19/2023 13:48 ? Follow-Up/Discharge Instructions Follow-up Layla MODI, Nikolay, CARMENCITA, RAD, Within 1 to 2 weeks ? Post Discharge Care Prognosis: ??Fair ?? Condition: ??Stable ?? Discharge Request ?02/20/23 8:31:00 CDT, Home Routine Pending Results No Pending Results Results Discharge Labs General Chemistry Glucose Level 132 mg/dL (High)?? 02/20/2023 04:11 Sodium 136 mmol/L (Normal)?? 02/20/2023 04:11 Potassium 3.7 mmol/L (Normal)?? 02/20/2023 04:11 Chloride 105 mmol/L (Normal)?? 02/20/2023 04:11 CO2 27 mmol/L (Normal)?? 02/20/2023 04:11 Anion Gap 4 mmol/L (Normal)?? 02/20/2023 04:11 BUN 18 mg/dL (Normal)?? 02/20/2023 04:11 Creatinine 0.9 mg/dL (Normal)?? 02/20/2023 04:11 BUN/Creat Ratio 20.00 Ratio (Normal)?? 02/20/2023 04:11 Calcium 9.0 mg/dL (Normal)?? 02/20/2023 04:11 Estimated Creatinine Clearance 61.36 mL/min ()?? 02/20/2023 04:45 eGFR Cr 87 mL/min/1.73m2 (N/A)?? 02/20/2023 04:11 eGFR Pediatric Not Reported mL/min/1.73m2 (N/A)?? 02/20/2023 04:11 ? General Coagulation PT 10.3 Seconds (Normal)?? 02/16/2023 11:55 INR <0.93 (Normal)?? 02/16/2023 11:55 aPTT 28.9 Seconds (Normal)?? 02/16/2023 11:55 ? General Hematology WBC 9.50 x10e3/mcL (Normal)?? 02/20/2023 04:11 RBC 3.97 x10e6/mcL (Low)?? 02/20/2023 04:11 Hgb 12.90 gm/dL (Low)?? 02/20/2023 04:11 Hct 38.70 % (Low)?? 02/20/2023 04:11 MCV 97.5 Femtoliters (Normal)?? 02/20/2023 04:11 MCH 32.60 pg (Normal)?? 02/20/2023 04:11 MCHC 33.50 gm/dL (Normal)?? 02/20/2023 04:11 RDW-CV 14.30 % (Normal)?? 02/20/2023 04:11 RDW-SD 49.40 Femtoliters (High)?? 02/20/2023 04:11 Plt 170 x10e3/mcL (Normal)?? 02/20/2023 04:11 MPV 8.60 Femtoliters (Normal)?? 02/20/2023 04:11 ? Blood Glucose Trend Glucose Level:??132 mg/dL??High (02/20/23 04:11:00) ? Allergies Allergies ?(Active and Proposed Allergies Only) codeine? (Severity: Unknown severity, Onset: Unknown) ?Reactions: hives penicillin? (Severity: Unknown severity, Onset: Unknown) ?Reactions: hives ? Objective Measurements (most recent)?? Height 168.00 cm?Lenard Hernandez RN ??02/19 10:09 Weight 98.10 kg?Lenard Hernandez RN ??02/19 10:09 Body Mass Index 34.76 kg/m2?Hernandez RN, Lenard ??02/19 10:09 Scale Type Standing?Hernandez RN, Lenard ??02/19 10:09 ? Vital Signs (24 hrs) Last Charted?? Minimum?? Maximum?? Temp?? 36.7?? 02/20/2023 08:00?? 36.7?? 02/19/2023 09:50 ?? 36.7?? 02/19/2023 09:50?? Heart Rate Monitored?? 76?? 02/20/2023 08:00?? L??58?? 02/19/2023 16:54 ?? 76?? 02/20/2023 08:00?? Resp Rate?? 20?? 02/20/2023 08:00?? L??10?? 02/19/2023 20:00 ?? H??23?? 02/20/2023 07:00?? SBP?? H??138?? 02/20/2023 08:00?? L??86?? 02/19/2023 16:54 ?? H??138?? 02/20/2023 08:00?? DBP?? 60?? 02/20/2023 08:00?? L??51?? 02/19/2023 16:54 ?? 70?? 02/19/2023 20:00?? MAP?? 86?? 02/20/2023 08:00?? 59?? 02/19/2023 16:30 ?? 91?? 02/19/2023 20:00?? SpO2?? 98?? 02/20/2023 08:00?? L??93?? 02/19/2023 16:00 ?? 100?? 02/19/2023 21:00?? O2 Therapy?? Room air? Pain Scores (Last Within 24hrs) Numeric Pain Scale: 0 = No pain (08:00) ?? Assisted Ventilation Settings (Last Within 24hrs)?? Ventilator Mode: CPAP (Continuous Positive Airway Pressure) (19:00) FIO2: 26 % (19:00) FIO2: 26 % (19:00) ? I&O 24 Hour Total? 04 07:00 02/20 07:00 02/19 07:00 02/18 07:00 02/17 07:00 ?? 02/20 08:34 02/20 08:34 02/20 06:59 02/19 06:59 02/18 06:59 Intake ? 1050 ?0 ? 1050 ?0 ?0 Output ? 1250 ?0 ? 1250 ?0 ?0 Net Total ? -200 ?0 ? -200 ?0 ?0 ? Mental Status Exam ? General: Alert, in no acute cardiopulmonary distress.?? Obese Mental Status: Oriented to person, place and time. Normal affect. Head: Normocephalic. Neck:??Short but??supple, Full range of motion. Respiratory: Nonlabored??clear to auscultation . No wheezing, rales or rhonchi. Cardiovascular: Heart sounds normal. No thrills. Regular rate and rhythm, no murmurs, rubs or gallops.?? No leg edema. ? chest wall : (+)??AICD incision??site is intact with??eh-incisional bruising. ??Left upper extremity in a sling. Gastrointestinal: Abdomen soft, non-tender, non-distended. Normal bowel sounds. No pulsatile mass. No hepatosplenomegaly. Neurologic: Cranial nerves II-XII grossly intact. No focal neurological deficits. . Moves all extremities spontaneously. Sensation intact bilaterally. Skin: No rashes or lesions. No petechiae or purpura. No edema. Musculoskeletal: No cyanosis or clubbing. No gross deformities. Normal range of motion. Hospital Course This 77-year-old obese male COPD, ORLIN on CPAP, diabetes mellitus, atrial fibrillation on chronic anticoagulation, hypertension, CAD, congestive heart failure with reduced ejection fraction to 20 to 35% ,ischemic cardiomyopathy underwent AICD placement for primary prevention of sudden . He tolerated the procedure well and in stable condition at the recovery room without any complaints. The immediate postAICD placement CXR is unremarkable for pneumo/hemothorax, the device in place and leads in good position.??Postoperative course is unremarkable.??The repeat??chest x- ray??showed the devicein place with leads in good position.??There is no pneumohemothorax noted.??The device has been interrogated and functioning well.??Patient remained in??NSR on the monitor.??The incision site is dry and clean there is no bleeding although there is eh-incisional bruising.??The medications are reconciled and prescription for new medication is sent to his pharmacy. Outpatient follow up appointments are set up prior to discharge. At the time of discharge, the patient did not have hemodynamic, neurologic, respiratory, or gastrointestinal compromise. If further symptoms recur or condition deteriorates, if fever/swelling/redness/pain/oozing/bleedingof the operative sites, chest pain,palpitations,dizziness, shortness of breath or any other new symptoms are noted, the patient was instructed to immediately seek medical evaluation with primary carephysician or come to emergency department. Plan discussed in detail with patient and agrees with plan.? More than 30 minutes spent on discharge planning, [id number] with patient, physical exam, medication reconciliation and?sending prescriptions, and providing final instructions and recommendations to patient and nurses for discharge planning, and post-discharge follow ups. 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 He tolerated the procedure well and in stable condition at the recovery room without any complaints. The immediate postAICD placement CXR is unremarkable for pneumo/hemothorax, the device in place and leads in good position. Review of Systems ?? Constitutional: No weight loss, fever, chills, weakness or fatigue. HEENT: No visual loss, blurred vision, double vision or yellow sclera. No hearing loss, sneezing, congestion, runny nose or sore throat. Skin: No rash or itching. Cardiovascular: No chest pain, chest pressure or chest discomfort. No palpitations or pedal edema. Respiratory: No shortness of breath, cough or sputum production. Gastrointestinal: No anorexia, nausea, vomiting or diarrhea. No abdominal pain or blood in stool. Genitourinary: No burning micturition. No urinary frequency or incontinence. Neurologic: No headache, dizziness, syncope, unilateral weakness, ataxia, numbness or tingling in the extremities. No change in bowel or bladder control. Musculoskeletal: No muscle pain, back pain, joint pain or stiffness. Hematologic: No bleeding or bruising. Lymphatics: No enlarged lymph nodes. Psychiatric: No depression or anxiety. Endocrine: No reports of sweating. No cold or heat intolerance. No polyuria or polydipsia. Objective Measurements (most recent)?? Height 168.00 cm?Lenard Hernandez RN ??02/19 10:09 Weight 98.10 kg?Lenard Hernandez RN ??02/19 10:09 Body Mass Index 34.76 kg/m2?Lenard Hernandez RN ??02/19 10:09 Scale Type Standing?Lenard Hernandez RN ??02/19 10:09 ? Vital Signs (24 hrs) Last Charted?? Minimum?? Maximum?? Temp?? 36.7?? 02/19/2023 09:50?? 36.7?? 02/19/2023 09:50 ?? 36.7?? 02/19/2023 09:50?? Heart Rate Monitored?? 60?? 02/19/2023 17:00?? L??58?? 02/19/2023 16:54 ?? 68?? 02/19/2023 16:55?? Resp Rate?? 18?? 02/19/2023 17:00?? 16?? 02/19/2023 16:30 ?? H??21?? 02/19/2023 16:33?? SBP?? 96?? 02/19/2023 17:00?? L??86?? 02/19/2023 16:54 ?? 105?? 02/19/2023 09:50?? DBP?? L??59?? 02/19/2023 17:00?? L??51?? 02/19/2023 16:54 ?? 60?? 02/19/2023 16:30?? MAP?? 73?? 02/19/2023 17:00?? 59?? 02/19/2023 16:30 ?? 73?? 02/19/2023 17:00?? SpO2?? 94?? 02/19/2023 17:00?? L??93?? 02/19/2023 16:00 ?? 98?? 02/19/2023 09:50? Pain Scores (Last Within 24hrs) Numeric Pain Scale: 0 = No pain (16:00) ? I&O 24 Hour Total? 04/03 07:00 04/03 07:00 04/02 07:00 04/01 07:00 03/31 07:00 ?? 04/03 17:30 04/03 17:30 04/03 06:59 04/02 06:59 04/01 06:59 Intake ?210 ?210 ?0 ?0 ?0 Output ?0 ?0 ?0 ?0 ?0 Net Total ?210 ?210 ?0 ?0 ?0 ? Mental Status Exam ? Basic ADLs ? Physical Exam ?? General: Alert, in no acute cardiopulmonary distress.?? Obese Mental Status: Oriented to person, place and time. Normal affect. Head: Normocephalic. Neck:??Short but??supple, Full range of motion. Respiratory: Nonlabored??clear to auscultation . No wheezing, rales or rhonchi. Cardiovascular: Heart sounds normal. No thrills. Regular rate and rhythm, no murmurs, rubs or gallops.?? No leg edema. ? chest wall : (+) Dry bulky dressing left anterior chest. ??Left upper extremity in a sling. Gastrointestinal: Abdomen soft, non-tender, non-distended. Normal bowel sounds. No pulsatile mass. No hepatosplenomegaly. Neurologic: Cranial nerves II-XII grossly intact. No focal neurological deficits. . Moves all extremities spontaneously. Sensation intact bilaterally. Skin: No rashes or lesions. No petechiae or purpura. No edema. Musculoskeletal: No cyanosis or clubbing. No gross deformities. Normal range of motion. Assessment/Plan Diagnoses Atrial fibrillation, chronic ??(I48.20) BPH (benign prostatic hyperplasia) ??(N40.0) Cardiomyopathy ??(I42.9) ?? BPH (benign prostatic hyperplasia) (N40.0):??continue finasteride and tamsulosin ?? Cardiomyopathy (I42.9):??- s/p??AICD placement - for repeat CXR in AM - Device interrogation in AM - complete clindamycin as preOp antibiotic prophylaxis ??- optimize pain control -??keep the LUE on a sling and avoid using the arm above the shoulder - reconcile home meds and continue enalapril ,aldactone ??including OAC - refer to EP or [id number] if with bleeding from operative site, chest pain and SOB. - nurse to order ECG/CXR prn if with chest pain or shortness of breath - telemonitoring and refer if with arrhythmias - further per Dr. Tidwell ? Atrial fibrillation, chronic (I48.20):??reconcile meds and continue amiodarone and resume Eliquis for anticoagulation ?? Discharge Planning:??Home independently ? Histories Allergies Allergies ?(Active and Proposed Allergies Only) codeine? (Severity: Unknown severity, Onset: Unknown) ?Reactions: hives penicillin? (Severity: Unknown severity, Onset: Unknown) ?Reactions: hives ? Past Medical History Active Problems(6) Atrial fibrillation CHF (congestive heart failure) COPD (chronic obstructive pulmonary disease) Diabetes HTN (hypertension) Hyperlipemia ? Past Surgical History Cholecystectomy;: 2020 Appendectomy;: 03/20/64 inguinal hernia repair ? Social History Alcohol Details:??Current, 1-2 times per year Substance Abuse Details:??Denies Tobacco Details:??Denies ? Family History No Family History documented. ? Medications Home Medications amiodarone (amiodarone 200 mg oral tablet)?100?Milligram?By Mouth?Daily?for 30?Days apixaban (apixaban 5 mg oral tablet)?5?Milligram?1?Tabs?By Mouth?2 Times a Day aspirin (aspirin 81 mg oral tablet, chewable)?81?Milligram?1?Tabs?Chewed?Daily atorvastatin (atorvastatin 40 mg oral tablet)?40?Milligram?1?Tabs?By Mouth?at Bedtime enalapril (enalapril 10 mg oral tablet)?10?Milligram?1?Tabs?By Mouth?Daily finasteride (Proscar 5 mg oral tablet)?5?Milligram?1?Tabs?By Mouth?Daily FLUoxetine (PROzac 20 mg oral capsule)?20?Milligram?1?Capsules?By Mouth?Daily furosemide (furosemide 40 mg oral tablet)?40?Milligram?1?Tabs?By Mouth?2 Times a Day?Administer at 9 am and 2 pm?for 30?Days levothyroxine (Synthroid 25 mcg (0.025 mg) oral tablet)?25?Microgram?1?Tabs?By Mouth?Daily loratadine (loratadine 10 mg oral tablet)?10?Milligram?1?Tabs?By Mouth?Daily metFORMIN (metFORMIN 500 mg oral tablet)?500?Milligram?1?Tabs?By Mouth?Daily?as needed?Blood Glucose (please specify)?for blood sugar over 200 metoprolol (Metoprolol Succinate ER 50 mg oral tablet, extended release)?50?Milligram?1?Tabs?By Mouth?at Bedtime pantoprazole (Protonix 20 mg oral enteric coated tablet)?20?Milligram?1?Tabs?By Mouth?Daily spironolactone (spironolactone 25 mg oral tablet)?25?Milligram?1?Tabs?By Mouth?Daily tamsulosin (tamsulosin 0.4 mg oral capsule)?0.4?Milligram?1?Capsules?By Mouth?2 Times a Day ? Inpatient Medications Medications (16) Active SCHEDULED: (15) amiodarone 200 mg Tab (amiodarone) ??100 mg 0.5 Tabs, Oral, Daily apixaban 5 mg Tab (apixaban) ??5 mg 1 Tabs, Oral, BID aspirin 81 mg Chew Tab (aspirin) ??81 mg 1 Tabs, Chewed, Daily atorvastatin 40 mg Tab (atorvastatin) ??40 mg 1 Tabs, Oral, qHS clindamycin/D5W (clindamycin) ??600 mg 50 mL, IV Piggyback, q8H Interval finasteride 5 mg Tab (Proscar) ??5 mg 1 Tabs, Oral, Daily FLUoxetine 20 mg Cap (PROzac) ??20 mg 1 Caps, Oral, Daily furosemide 40 mg Tab (furosemide) ??40 mg 1 Tabs, Oral, BID levothyroxine 25 mcg (0.025 mg) Tab (Synthroid) ??25 mcg 1 Tabs, Oral, Daily lisinopril 10 mg Tab (lisinopril) ??10 mg 1 Tabs, Oral, Daily loratadine 10 mg Tab (loratadine) ??10 mg 1 Tabs, Oral, Daily metoprolol succinate 50 mg XL Tab (Metoprolol Succinate ER) ??50 mg 1 Tabs, Oral, qHS pantoprazole 20 mg Oral EC Tab (Protonix) ??20 mg 1 Tabs, Oral, Daily spironolactone 25 mg Tab (spironolactone) ??25 mg 1 Tabs, Oral, Daily tamsulosin 0.4 mg SA Cap (tamsulosin) ??0.4 mg 1 Caps, Oral, BID CONTINUOUS: (0) PRN: (1) acetaminophen 325 mg Tab (Tylenol) ??650 mg 2 Tabs, Oral, q6H ? 72 hour Antibiotic History Completed/Discontinued Antibiotics?? Stop Date/Time?? Last Administered?? First Administered clindamycin 600 mg?IV, Stop: 02/19/23 14:48:00 CDT?? 02/19/2023 14:07 02/19/2023 13:48?? 02/19/2023 13:48 ? Vaccinations and Immunoprophylaxis COVID-19 Vaccine Status: Fully +1 or more booster(s) (02/19/23 10:09:00) COVID-19 Vaccine Status: Fully +1 or more booster(s) (02/16/23 12:47:00) COVID-19 Vaccine Status: Fully (> 2 weeks since last dose) (01/12/23 22:14:00) COVID-19 Vaccine Status: Fully +1 or more booster(s) (01/12/23 18:45:00) COVID-19 Vaccine Status: Fully (> 2 weeks since last dose) (01/04/23 06:38:00) COVID-19 Vaccine Status: Fully (> 2 weeks since last dose) (01/02/23 20:00:00) COVID-19 Vaccine Status: Fully (> 2 weeks since last dose) (01/02/23 14:57:00) COVID-19 Vaccine Status: Fully +1 or more booster(s) (12/17/22 23:29:00) COVID-19 Vaccine Status: Fully +1 or more booster(s) (12/17/22 14:34:00) ? Results Recent Labs No labs resulted between 02/18/2023 00:00 and 02/19/2023 17:30? Abnormal Labs No lab data available. ?? CBC, BMP, Coagulation Trend (last 4 resulted) WBC 6.00 ?? 02/16/2023 ??11:55 ? Hgb 12.90 ??L?? 02/16/2023 ??11:55 ? Hct 38.40 ??L?? 02/16/2023 ??11:55 ? Plt 200 ?? 02/16/2023 ??11:55 ? Glucose Level 116 ??H?? 02/16/2023 ??11:55 ? Sodium 137 ?? 02/16/2023 ??11:55 ? Potassium 4.3 ?? 02/16/2023 ??11:55 ? Chloride 105 ?? 02/16/2023 ??11:55 ? CO2 32 ?? 02/16/2023 ??11:55 ? BUN 12 ?? 02/16/2023 ??11:55 ? Creatinine 1.0 ?? 02/16/2023 ??11:55 ? BUN/Creat Ratio 12.00 ?? 02/16/2023 ??11:55 ? Calcium 9.3 ?? 02/16/2023 ??11:55 ? aPTT 28.9 ?? 02/16/2023 ??11:55 ? PT 10.3 ?? 02/16/2023 ??11:55 ? INR <0.93 ?? 02/16/2023 ??11:55 ? Blood Glucose Trend ? Cardiology Labs ? Electronically Signed By: Jordan Cruz MD On: 02.19.2023 21:33 CDT Note * Yariel Rios CRNA: PERFORM, SIGN, VERIFY Event Display: Consult - Anesthesiology Authored Date: Patient: ALBERT FAN SR Age: 77 years Sex: Male : 1945 Associated Diagnoses: None Author: Yariel Rios CRNA Postoperative Information Post Operative Info: Procedure/ Case: aicd, Surgeon: Nikolay Tidwell MD, Anesthesia provider: Yariel Rios CRNA. Post operative day: Post Anesthesia Care Unit. Patient location: PACU. Assessment and Plan Vitals: Vital Signs 02/19/2023 9:50 CDT Temperature (Route Not Specified) 36.7 DegC Temperature Convert C to F 98.1 DegF Temperature Method Oral Peripheral Pulse Rate 58 bpm LOW Respiratory Rate 17 br/min Systolic Blood Pressure 105 mmHg Diastolic Blood Pressure 57 mmHg LOW BP Site Left arm . Blood Pressure: Within normal limits. Pulse: Within normal limits. Respirations: Within normal limits. Neurological/Mental Assessment: Mental status: At preoperative baseline, Alert & oriented x 4. Respiratory Function: Stable. Respiratory Support: None. CV function: Normal rate, Regular rhythm. CV support Pain: Self-reports no pain. Nausea Status: Denies nausea. Hydration: Within normal limits. Electronically Signed By: Yariel Rios CRNA On: 02.19.2023 15:34 CDT Patient Care team information Care Team Personnel Name: My Travis MD Position: Physician Member Role: Primary Care Physician Address: Address: [address] [facility] [address] [place] [address] [place] Care Team Related Persons Name: DULCE FAN Address: Home [address] [place] [address] [address] MICHAUD [address] [id number]
--- OUTSIDE RECORDS SUMMARY | 2024-05-21 20:38 | XMS_ITS | Continuity of Care Document ---
Author Name Unknown Organization [facility] Address [address] [place] [address]- Care Team Providers Care Sales Trainee Name Role Phone [facility], [facility] Primary Care Physician Encounter [facility] [id number] Date(s): 01/05/24 - 01/07/24 [facility] [address] [facility] [id number] [place] [address] [place] Encounter Diagnosis Sustained VT (ventricular tachycardia)(Discharge Diagnosis) - 01/05/24 Defibrillator discharge(Discharge Diagnosis) - 01/05/24 Acute hypokalemia(Discharge Diagnosis) - 01/05/24 Discharge Disposition: Routine to Home Attending Physician: Margi Plummer MD Admitting Physician: Margi Plummer MD Referring Physician: No referring, Doctor Reason for Visit SUSTAINED VT(VENTICULAR TACHYC Allergies, Adverse Reactions, Alerts Substance Criticality Severity Reaction Reaction Severity Status codeine hives Active penicillin hives Active Assessment and Plan Extracted from: Title:Progress/SOAP Note Author:Kerry Plummer MD Date:01/06/24 Diagnoses Acute hypokalemia ??(E87.6) Atrial fibrillation ??(I48.91) CKD (chronic kidney disease), stage III ??(N18.30) COPD mixed type ??(J44.9) Class 1 obesity ??(E66.9) Defibrillator discharge ??(Z45.02) Diabetes mellitus ??(E11.9) Ischemic cardiomyopathy ??(I25.5) Mixed hyperlipidemia due to type 2 diabetes mellitus ??(E11.69) On continuous oral anticoagulation ??(Z79.01) Type 2 WA (myocardial infarction) ??(I21.A1) 1. ??Sustained VT (ventricular tachycardia) ??(I47.20) ?Plan: Inpatient ?? Telemetry monitoring. Aggressive??replacement of??electrolytes. Replace to high normal levels. Oxygen supplementation as indicated. Completed??device interrogation. Cardiology consultation. Hold metformin Continue empagliflozin Insulin sliding scale Cardiac diabetic diet Avoid??nephrotoxic drugs GI prophylaxis Continue oral anticoagulation Continue??all previous medications Supportive treatment ??amiodarone 200 mg Tab (amiodarone) ??200 mg 1 Tabs, Oral, Daily apixaban 5 mg Tab (apixaban) ??5 mg 1 Tabs, Oral, BID aspirin 81 mg Chew Tab (aspirin) ??81 mg 1 Tabs, Chewed, Daily atorvastatin 40 mg Tab (atorvastatin) ??40 mg 1 Tabs, Oral, qHS dapagliflozin 10 mg Tab (dapagliflozin) ??10 mg 1 Tabs, Oral, Daily ethanol topical (Nozin POPswab 62% topical swab) ??1 amp, Topical, BID finasteride 5 mg Tab (Proscar) ??5 mg 1 Tabs, Oral, Daily FLUoxetine 20 mg Cap (PROzac) ??20 mg 1 Caps, Oral, Daily furosemide 40 mg Tab (Lasix) ??40 mg 1 Tabs, Oral, Daily Hypoglycemia Protocol Advisor ??Protocol, N/A, Daily insulin regular, human REC 1 unit/ 0.01 mL (insulin regular Correctional scale Intermediate) ??3-13 units, SubCutaneous, Before Meals and HS levothyroxine 25 mcg (0.025 mg) Tab (Synthroid) ??25 mcg 1 Tabs, Oral, Daily loratadine 10 mg Tab (loratadine) ??10 mg 1 Tabs, Oral, Daily metoprolol succinate 50 mg XL Tab (Metoprolol Succinate ER) ??50 mg 1 Tabs, Oral, qHS nitroglycerin 2% Top Oint 1 gm (Nitro-Bid) ??1 inch, Topical, q6H pantoprazole 20 mg Oral EC Tab (Protonix) ??20 mg 1 Tabs, Oral, Daily Protocol (Magnesium Oxide - Oral.) ??Protocol, N/A, q72H Interval Protocol (Magnesium Sulfate - IV.) ??Protocol, N/A, q72H Interval Protocol (Sodium Phosphate - Oral.) ??Protocol, N/A, q72H Interval Protocol (Sodium Phosphate - IV.) ??Protocol, N/A, q72H Interval Protocol (Potassium Chloride - Oral & IV.) ??Protocol, N/A, q72H Interval rOPINIRole 0.25 mg Tab (rOPINIRole) ??0.5 mg 2 Tabs, Oral, TID spironolactone 25 mg Tab (spironolactone) ??25 mg 1 Tabs, Oral, Daily tamsulosin 0.4 mg SA Cap (tamsulosin) ??0.4 mg 1 Caps, Oral, BID ?? Condition serious Prognosis guarded ?? Further as per clinical evolution ?? Disposition Home with family care when clinically stable and cleared by cardiology team?? Discharge Planning:??Home in am ?? Discharge Planning:?Discharge Planning:?Discharge To, Anticipated:??Home with family care ? Medications amiodarone (amiodarone 400 m g oral tablet) Status: Ordered Start Date: 01/07/24 1 Tabs By Mouth Daily. Refills: 0. Ordering provider: Zayra MODI, Josue [facility] [address], [place] [id number] apixaban (apixaban 5 mg oral tablet) Status: Ordered Start Date: 01/15/23 1 Tabs By Mouth 2 Times a Day. ascorbic acid (ascorbic acid 500 mg oral tablet) Status: Ordered Start Date: 01/05/24 1 Tabs By Mouth Daily. aspirin (aspirin 81 mg oral tablet, chewable) Status: Ordered Start Date: 01/15/23 1 Tabs Chewed Daily. atorvastatin (atorvastatin 4 0 mg oral tablet) Status: Ordered Start Date: 01/15/23 1 Tabs By Mouth at Bedtime. cholecalciferol (cholecalcif mundo 25 mcg (1000 intl units) oral capsule) Status: Ordered Start Date: 01/05/24 1 Capsules By Mouth Daily. empagliflozin (Jardiance 25 mg oral tablet) Status: Ordered Start Date: 01/05/24 0.5 TAB By Mouth Every AM. finasteride (Proscar 5 mg or al tablet) Status: Ordered Start Date: 12/17/22 1 Tabs By Mouth Daily. FLUoxetine (PROzac 20 mg ora l capsule) Status: Ordered Start Date: 12/17/22 1 Capsules By Mouth Daily. furosemide (Lasix 40 mg oral tablet) Status: Ordered Start Date: 01/05/24 2 Tabs By Mouth Every AM. furosemide (Lasix 40 mg oral tablet) Status: Ordered Start Date: 01/05/24 1 Tabs By Mouth After Lunch. lactobacillus acidophilus (l actobacillus acidophilus oral capsule) Status: Ordered Start Date: 01/05/24 1 Capsules By Mouth Daily. levothyroxine (Synthroid 25 mcg (0.025 mg) oral tablet) Status: Ordered Start Date: 12/17/22 1 Tabs By Mouth Daily. loratadine (loratadine 10 mg oral tablet) Status: Ordered Start Date: 12/17/22 1 Tabs By Mouth Daily. metoprolol (Metoprolol Succi abby ER 50 mg oral tablet, extended release) Status: Ordered Start Date: 01/12/23 1 Tabs By Mouth at Bedtime. nitroglycerin (nitroglycerin 0.4 mg sublingual tablet) Status: Ordered Start Date: 01/05/24 1 Tabs Sublingual Now and Every 5 minutes as needed as needed for chest pain. not to exceed 3 doses/15 min--if pain persists, seek medical attention. pantoprazole (Protonix 20 mg oral enteric coated tablet) Status: Ordered Start Date: 12/17/22 1 Tabs By Mouth Daily. rOPINIRole (rOPINIRole 0.5 m g oral tablet) Status: Ordered Start Date: 01/05/24 1 Tabs By Mouth 3 Times a Day. sacubitril-valsartan (sacubi tril-valsartan 24 mg-26 mg oral tablet) Status: Ordered Start Date: 01/05/24 0.5 Tabs Oral BID. spironolactone (spironolacto ne 25 mg oral tablet) Status: Ordered Start Date: 01/05/24 1 Tabs By Mouth Daily. tamsulosin (tamsulosin 0.4 m g oral capsule) Status: Ordered Start Date: 01/15/23 1 Capsules By Mouth 2 Times a Day. insulin regular (insulin reg ular Correctional scale Intermediate) Status: Completed Start Date: 01/06/24 Stop Date: 01/06/24 3-13 units Subcutaneous. Refills: 0. insulin regular (insulin reg ular Correctional scale Intermediate) Status: Completed Start Date: 01/07/24 Stop Date: 01/07/24 3-13 units Subcutaneous. Refills: 0. insulin regular (insulin reg ular Correctional scale Intermediate) Status: Completed Start Date: 01/07/24 Stop Date: 01/07/24 3-13 units Subcutaneous. Refills: 0. Problem List Condition Confirmation Course Effective Dates Status Health Status Informant Aortic valve sclerosis 1 Confirmed 01/04/23 Active Atrial fibrillation Confirmed 12/17/22 Active Vertigo, benign positional Confirmed 12/27/17 Active BPH (benign prostatic hyperplasia) Confirmed Active Bifascicular block Confirmed Active Bradycardia Confirmed 08/13/19 Active Cardiomyopathy Confirmed Active Nonischemic cardiomyopathy Confirmed 08/13/19 Active Chest pain Confirmed 08/13/19 Active COPD (chronic obstructive pulmonary disease) Confirmed Active CHF (congestive heart failure) Confirmed Active CAD (coronary artery disease) Confirmed Active Diabetes Confirmed Active Thyroid condition Confirmed Active Shortness of breath Confirmed Active Right bundle branch block (RBBB) on electrocardiogram (ECG) Confirmed 01/02/23 Active Former smoker Confirmed Active First degree AV block Confirmed 08/13/19 Active History of sepsis Confirmed 11/30/19 Active Hyperlipemia Confirmed Active HTN (hypertension) Confirmed Active Ischemic cardiomyopathy Confirmed Active Mitral valve regurgitation 2 Confirmed 01/04/23 Active Obesity Confirmed Active Myocardial infarct, old Confirmed 2012 Active Pulmonary edema cardiac cause Confirmed 01/12/23 Active SSS (sick sinus syndrome) Confirmed Active SVT (supraventricular tachycardia) Confirmed 08/13/19 Active Syncope Confirmed 08/13/19 Active Tachycardia Confirmed 01/02/23 Active Tricuspid valve regurgitation 3 Confirmed 01/04/23 Active 1moderate AV sclerosis as per echo 2moderate MVR as per echo 3mild-moderte TVR as per echo Procedures Procedure Date Related Diagnosis Body Site Status Collection of venous blood b y venipuncture 01/07/24 Completed Collection of venous blood b y venipuncture 01/06/24 Completed Collection of venous blood b y venipuncture 01/05/24 Completed Insertion Defibrillator (Lat erality NA) 1 02/19/23 Completed Direct current cardioversion 01/04/23 Completed TRINY 2 01/04/23 Completed Cholecystectomy; 2020 Complete d LHC 08/14/19 Completed LHC / PTCA 11/06/13 Completed Appendectomy; 03/20/64 Completed inguinal hernia repair Co mpleted 1auto-populated from documented surgical case 2EF 30-35%; moderate MVR; Moderate AV sclerosis no stenosis; small plaque to descending aorta 12-01-2019: EF 60-65%; 08-14-2019: ef 55-60%; Trace MVR, AVR, TVR 05-19-2019: EF 56% Results Laboratory List Name Date POC Glucose 01/07/24 Basic Metabolic Panel (BMP) 01/07/24 Magnesium Level 01/07/24 Phosphorus Level 01/07/24 POC Glucose 01/07/24 POC Glucose 01/06/24 B Type Natriuretic Peptide (BNP) 01/06/24 Basic Metabolic Panel (BMP) 01/06/24 Magnesium Level 01/06/24 Phosphorus Level 01/06/24 Potassium Level 01/05/24 Troponin +3hr 01/05/24 Troponin +1hr 01/05/24 Auto Diff 01/05/24 B Type Natriuretic Peptide 01/05/24 CBC with Diff 01/05/24 Comprehensive Metabolic Panel 01/05/24 Lipid Panel with Direct LDL 2 01/05/24 Magnesium Level 01/05/24 PT INR 01/05/24 T3 Uptake 01/05/24 T4 Total 01/05/24 TSH 01/05/24 Troponin (TNIH) (Troponin ED (STAT, +1hr , +3hr)) 01/05/24 aPTT 01/05/24 01/07/24 Test Result Reference Range Specimen [facility] Glucose Level 160 mg/dL (Normal is 74-10 6 mg/dL) Blood [facility] POC Glucose 128 mg/dL (Normal is 70-10 5 mg/dL) Blood [facility] POC Glucose 162 mg/dL (Normal is 70-10 5 mg/dL) Blood [facility] Sodium 141 mmol/L (Normal is 136-1 45 mmol/L) Blood [facility] Potassium 4.8 mmol/L (Normal is 3.5-5 .1 mmol/L) Blood [facility] Chloride 107 mmol/L (Normal is 98-10 7 mmol/L) Blood [facility] CO2 32 mmol/L (Normal is 21-32 mmol/L) Blood [facility] Anion Gap 2 mmol/L (Normal is 3-11 mmol/L) Blood [facility] BUN 22 mg/dL (Normal is 7-18 mg/dL) Blood [facility] Creatinine 1.4 mg/dL (Normal is 0.6-1 .3 mg/dL) Blood [facility] BUN/Creat Ratio 15.71 Ratio (Normal is 6.00-22.00 Ratio) Blood [facility] Calcium 9.3 mg/dL (Normal is 8.5-1 0.0 mg/dL) Blood [facility] Mg Lvl 2.3 mg/dL (Normal is 1.8-2 .4 mg/dL) Blood [facility] Phosphorus 4.5 mg/dL (Normal is 2.5-4 .9 mg/dL) Blood [facility] Lab Estimated Creatinine Clearance 41.39 mL/min 1 eGFR Cr 51 mL/min/1.73m2 Blood eGFR Pediatric Not Reported mL/min/1.73m2 2 (Normal is >=75 mL/min/1.73m2) Blood [facility] Glucose Result 128 MAR Glucose Result 162 01/06/24 Test Result Reference Range Specimen Source [facility] Glucose Level 141 mg/dL (Normal is 74-10 6 mg/dL) Blood [facility] Lab POC Glucose 194 mg/dL (Normal is 70-10 5 mg/dL) Blood [facility] Sodium 134 mmol/L (Normal is 136-1 45 mmol/L) Blood [facility] Potassium 4.6 mmol/L (Normal is 3.5-5 .1 mmol/L) Blood [facility] Chloride 101 mmol/L (Normal is 98-10 7 mmol/L) Blood [facility] CO2 27 mmol/L (Normal is 21-32 mmol/L) Blood [facility] Anion Gap 6 mmol/L (Normal is 3-11 mmol/L) Blood [facility] BUN 23 mg/dL (Normal is 7-18 mg/dL) Blood [facility] Creatinine 1.3 mg/dL (Normal is 0.6-1 .3 mg/dL) Blood [facility] BUN/Creat Ratio 17.69 Ratio (Normal is 6.00-22.00 Ratio) Blood [facility] Calcium 9.5 mg/dL (Normal is 8.5-1 0.0 mg/dL) Blood [facility] Mg Lvl 2.2 mg/dL (Normal is 1.8-2 .4 mg/dL) Blood [facility] Phosphorus 1.6 mg/dL (Normal is 2.5-4 .9 mg/dL) Blood [facility] Estimated Creatinine Clearance 44.58 mL/min 3 eGFR Cr 56 mL/min/1.73m2 Blood eGFR Pediatric Not Reported mL/min/1.73m2 4 (Normal is >=75 mL/min/1.73m2) Blood [facility] Glucose Result 165 BNP 143.0 pg/mL (Normal is 0.0-100.0 pg/mL) Blood [facility] 01/05/24 Test Result Reference Range Specimen Source [facility] WBC 8.80 x10e3/mcL (Normal is 4.30-11.00 x10e3/mcL) Blood [facility] RBC 4.43 x10e6/mcL (Normal is 4.60-6.20 x10e6/mcL) Blood [facility] Hgb 15.40 gm/dL (Normal is 14.00-18.00 gm/dL) Blood [facility] Hct 43.80 % (Normal is 40.00-54.00 %) Blood [facility] MCV 98.9 Femtoliters (Normal is 80.0-100.0 Femtoliters) Blood [facility] MCH 34.70 pg (Normal is 26.00-33.00 pg) Blood [facility] MCHC 35.10 gm/dL (Normal is 31.00-36.00 gm/dL) Blood [facility] RDW-SD 47.70 Femtoliters (Normal is 36.50-45.90 Femtoliters) Blood [facility] RDW-CV 13.50 % (Normal is 11.00-17.00 %) Blood [facility] Plt 288 x10e3/mcL (Normal is 150-3 75 x10e3/mcL) Blood [facility] MPV 7.70 Femtoliters (Normal is 7.40-11.40 Femtoliters) Blood [facility] Neut % Auto 69.1 % (Normal is 40.0-70.0 %) Blood [facility] Lymph % Auto 18.4 % (Normal is 25.0-40.0 %) Blood [facility] Island % Auto 10.8 % (Normal is 0.0-14.0 %) Blood [facility] Eos % Auto 0.8 % (Normal is 0.0-6 .0 %) Blood [facility] Baso % Auto 0.9 % (Normal is 0.0-2 .0 %) Blood [facility] Neut # Auto 6.1 x10e3/mcL (Normal is 2.0-11.0 x10e3/mcL) Blood [facility] Lymph # Auto 1.6 x10e3/mcL (Normal is 1.3-4 .4 x10e3/mcL) Blood [facility] Island # Auto 1.0 x10e3/mcL (Normal is 0.0-1 .4 x10e3/mcL) Blood [facility] Eos # Auto 0.1 x10e3/mcL (Normal is 0.0-0 .5 x10e3/mcL) Blood [facility] Baso # Auto 0.1 x10e3/mcL (Normal is 0.0-0 .2 x10e3/mcL) Blood [facility] PT 10.8 Seconds (Normal is 10.1-12.8 Seconds) Blood [facility] INR 0.95 (Normal is 0.91-1.20) Blood [facility] aPTT 31.9 Seconds (Normal is 21.9-31.0 Seconds) Blood [facility] Glucose Level 121 mg/dL (Normal is 74-10 6 mg/dL) Blood [facility] Sodium 137 mmol/L (Normal is 136-1 45 mmol/L) Blood [facility] Potassium 3.6 mmol/L (Normal is 3.5-5 .1 mmol/L) Blood [facility] Chloride 103 mmol/L (Normal is 98-10 7 mmol/L) Blood [facility] CO2 26 mmol/L (Normal is 21-32 mmol/L) Blood [facility] Anion Gap 8 mmol/L (Normal is 3-11 mmol/L) Blood [facility] BUN 16 mg/dL (Normal is 7-18 mg/dL) Blood [facility] Creatinine 1.2 mg/dL (Normal is 0.6-1 .3 mg/dL) Blood [facility] BUN/Creat Ratio 13.33 Ratio (Normal is 6.00-22.00 Ratio) Blood [facility] Calcium 10.0 mg/dL (Normal is 8.5-10.0 mg/dL) Blood [facility] Albumin. Level 4.1 gm/dL (Normal is 3.4-5 .0 gm/dL) Blood [facility] TP 7.8 gm/dL (Normal is 6.4-8 .2 gm/dL) Blood [facility] T Bili 0.90 mg/dL (Normal is 0.20-1.00 mg/dL) Blood [facility] Alk Phos 112 Intl_units/L (Normal is 45-1 17 Intl_units/L) Blood [facility] AST 24 Intl_units/L (Normal is 15-37 Intl_units/L) Blood [facility] ALT 36 Intl_units/L (Normal is 12-78 Intl_units/L) Blood [facility] Mg Lvl 2.3 mg/dL (Normal is 1.8-2 .4 mg/dL) Blood [facility] Estimated Creatinine Clearance 48.29 mL/min 5 eGFR Cr 62 mL/min/1.73m2 6 Blood eGFR Pediatric Not Reported mL/min/1.73m2 7 (Normal is >=75 mL/min/1.73m2) Blood BNP 78.7 pg/mL (Normal is 0.0-100.0 pg/mL) Blood [facility] Lab Troponin TNIH 324.1 ng/L 8, 9 (Normal is 0.0-78.5 ng/L) Blood [facility] Troponin TNIH 287.1 ng/L 10, 11 (Normal is 0.0-78.5 ng/L) Blood [facility] Troponin TNIH 158.4 ng/L 12, 13 (Normal is 0.0-78.5 ng/L) Blood [facility] Cholesterol 215 mg/dL (Normal is 0-199 mg/dL) Blood [facility] Trig 306 mg/dL (Normal is 0-150 mg/dL) Blood [facility] HDL 35 mg/dL 14 (Normal is 40-60 mg/dL) Blood [facility] LDL Direct 138 mg/dL 15 Blood [facility] LDL/HDL Ratio 4 Ratio (Normal is 0-5 Ratio) Blood [facility] Lab T3 Uptake 33.00 % (Normal is 31.00-39.00 %) Blood [facility] Total Thyroxine (T4) 11.60 mcg/dL (Normal is 4.50-12.10 mcg/dL) Blood [facility] TSH 3.530 mc Intl units/mL 16 (Normal is 0.360-3.740 mc Intl units/mL) Blood [facility] 1Result Comment: Calculated using method: Cockroft-Gault 2Result Comment: Not reported for adult patients ( > 18 years old ). 3Result Comment: Calculated using method: Cockroft-Gault 4Result Comment: Not reported for adult patients ( > 18 years old ). 5Interpretive Data: Falsely low results can be observed in patients with recent ingestion of high dose biotin supplements exceeding 20 mg per day. 6Result Comment: Result Called to and read back by Jordan Doe RN on 01/05/2024 20:29:55 BUFFER MACHINE by vm. 7Interpretive Data: Falsely low results can be observed in patients with recent ingestion of high dose biotin supplements exceeding 20 mg per day. 8Result Comment: Result Called to and read back by Nori Parr RN on 01/05/2024 17:56. KF. This represents a greater than 20% increase / decrease from the previous reported value. 9Result Comment: Calculated using method: Cockroft-Gault 10Result Comment: No previous creatinine in the last 72 hours; eGFR may not be reflective of the patient???s kidney function if creatinine is rapidly changing. 11Result Comment: Not reported for adult patients ( > 18 years old ). 12Result Comment: Result Called to and read back by melania salazar rn on 01/05/2024 17:09:38 CST_ by ca_. 13Interpretive Data: Falsely low results can be observed in patients with recent ingestion of high dose biotin supplements exceeding 20 mg per day. 14Interpretive Data: Low HDL - <40 mg/dL Normal HDL - 40 - 60 mg/dL Desirable HDL - >60 mg/dL 15Interpretive Data: Category LDL (mg/dL) Optimal < 100 Near/Above Optimal 100 ??? 129 Borderline High 130 ??? 159 High 160 ??? 189 Very High >/= 190 16Interpretive Data: This test may exhibit interference when sample is collected from a person who isconsuming a supplement with a high doses of biotin(also termed as vitamin B7 or B8, vitamin H, or coenzyme R).It is recommended to ask all patients who may be indicated for this test about biotin supp lementation.Patients should be cautioned to stop biotin consumption at least 72 hours prior to the collection of a sample. Laboratory Information [facility] CLIA Number: [id number] [address] Lab CLIA Number: [id number] [facility] [address] [place] [address] Lab CLIA Number: [id number] [facility] [address] [place] [address] Lab CLIA Number: [id number] [address] Lab CLIA Number: [id number] [address] Vital Signs 01/07/24 Temperature (Route Not Specified) 36.4 DegC*LOW* (Normal is 36.5-37.3 DegC) Peripheral Pulse Rate 60 bpm (Normal is 60-100 bpm) Respiratory Rate 18 br/min (Normal is 12-2 0 br/min) Blood Pressure 115/67mmHg (Normal is 90-13 5/60-80 mmHg) Weight 90.85 kg 01/05/24 Height 172.72 cm Social History Social History Type Response Tobacco Denies Smoking Status Former smoker Sex Male Hospital Discharge Instructions Patient Education 01/07/2024 15:50:05 DIABETES, General Info (CUSTOM) Diabetes (General Information) Diabetes is a long-term health problem. It means your body does not make enough insulin. Or it may mean that your body cannot use the insulin it makes. Insulin is a hormone in your body. It lets blood sugar (glucose) reach the cells in your body. All of your cells need glucose for fuel. When you have diabetes, the glucose in your blood builds up because it cannot get into the cells. This buildup is called high blood sugar (hyperglycemia). Your blood sugar level depends on several things. It depends on what kind of food you eat and how much of it you eat. It also depends on how much exercise you get, and how much insulin you have in your body. Eating too much of the wrong kinds of food or not taking diabetes medicine on time can cause high blood sugar. Infections can cause high blood sugar even if you are taking medicines correctly. These things can also cause low blood sugar: ??? Missing meals ??? Not eating enough food ??? Taking too much diabetes medicine Diabetes can cause serious problems over time if you do not get treated. These problems include heart disease, stroke, kidney failure, and blindness. They also include nerve pain or loss of feeling in your legs and feet, and gangrene of the feet. By keeping your blood sugar under control you can prevent or delay these problems. Normal blood sugar levels are 80 to 100 before a meal and less than 180??in the 1 to 2 hours after a meal. Home care Follow these guidelines when caring for yourself at home: ??? Follow the diet your healthcare provider gives you. Take insulin or other diabetes medicine exactly as told to. ??? Watch your blood sugar as you are told to. Keep a log of your results. This will help your provider change your medicines to keep your blood sugar under control. ??? Try to reach your ideal weight. You may be able to cut back on or not have to take diabetes medicine if you eat the right foods and get exercise. ??? Do not smoke. Smoking worsens the effects of diabetes on your circulation. You are much more likely to have a heart attack if you have diabetes and you smoke. ??? Take good care of your feet. If you have lost feeling in your feet, you may not see an injury or infection. Check your feet and between your toes at least once a week. ??? Wear a medical alert bracelet or necklace, or carry a card in your wallet that says you have diabetes. This will help healthcare providers give you the right care if you get very ill and cannot tell them that you have diabetes. Sick day plan If you get a cold, the flu, or a bacterial or viral infection, take these steps: ??? Look at your diabetes sick plan and call your healthcare provider as you were told to. You may need to call your provider right away if: ??? Your blood sugar is above 240 while taking your diabetes medicine ??? Your urine ketone levels are above normal or high ??? You have been vomiting more than 6 hours ??? You have trouble breathing or your breath leiva s a fruity smell ??? You have a high fever ??? You have a fever for several days and you are not getting better ??? You get light-headed and are sleepier than usual ??? Keep taking your diabetes pills (oral medicine) even if you have been vomiting and are feeling sick. Call your provider right away because you may need insulin to lower your blood sugar until yourecover from your illness. ??? Keep taking your insulin even if you have been vomiting and are feeling sick. Call your provider right away to ask if you need to change your insulin dose. This will depend on your blood sugar results. ??? Check your blood sugar every 2 to 4 hours, or at least 4 times a day. ??? Check your ketones often. If you are vomiting and having diarrhea, watch them more often. ??? Do not skip meals. Try to eat small meals on a regular schedule. Do this even if you do not feel like eating. ??? Drink water or other liquids that do not have caffeine or calories. This will keep you from getting dehydrated. If you are nauseated or vomiting, takes small sips every 5 minutes. To prevent dehydration try to drink a cup (8 ounces) of fluids every hour while you are awake. General care Always bring a source of fast-acting sugar with you in case you have symptoms of low blood sugar (below 70). At the first sign of low blood sugar, eat or drink 15 to 20 grams of fast-acting sugar to raise your blood sugar. Examples are: ??? 3 to 4 glucose tablets. You can buy these at most [facility]. ??? 4 ounces (1/2 cup) of regular (not diet) soft??drinks ??? 4 ounces (1/2 cup) of any fruit juice ??? 8 ounces (1 cup) of milk ??? 5 to 6 pieces of hard candy ??? 1 tablespoon of honey Check your blood sugar 15 minutes after treating yourself. If it is still below 70, take 15 to 20 more grams of fast-acting sugar. Test again in 15 minutes. If it returns to normal (70 or above), eata snack or meal to keep your blood sugar in a safe range. If it stays low, call your doctor or go to an emergency room. Follow-up care Follow-up with your healthcare provider, or as advised. For more information about diabetes, visit the [place] website at www.diabetes.org or call 243-814-3837. When to seek medical advice Call your healthcare provider right away if you have any of these symptoms of high blood sugar: ??? Frequent urination ??? Dizziness ??? Drowsiness ??? Thirst ??? Headache ??? Nausea or vomiting ??? Abdominal pain ??? Eyesight changes ??? Fast breathing ??? Confusion or loss of consciousness Also call your provider right away if you have any of these signs of low blood sugar: ??? Fatigue ??? Headache ??? Shakes ??? Excess sweating ??? Hunger ??? Feeling anxious or restless ??? Eyesight changes ??? Drowsiness ??? Weakness ??? Confusion or loss of consciousness Call 911 Call for emergency help right away if any of these occur: ??? Chest pain or shortness of breath ??? Dizziness or fainting ??? Weakness of an arm or leg or one side of the face ??? Trouble speaking or seeing ?? [phone] The [employer]. [address] [place] [address]. All rights reserved. This information is not intended as a substitute for professional medical care. Always follow your healthcare professional's instructions. 01/07/2024 15:14:50 Treatment for Supraventricular Tachycardia (SVT) Treatment for Supraventricular Tachycardia Supraventricular tachycardia (SVT) is a class??of abnormally fast heart rhythms that originate fromthe top chambers of the heart called the atria. You may also hear it called paroxysmal supraventricular tachycardia. Paroxysmal means that it happens from time to time. The??normal heart rhythm is generated by your sinus node, and the electricity is conducted through the heart over specialized nerve s. When the electricity meets the muscle cells, this results in regular and coordinated heartbeats.During SVT, the heart rhythm may be generated by an abnormal area of excited heart muscle in the atria or by an abnormal electric circuit that has formed in the heart, leading to rapid electrical activity. This can result in symptoms of palpitations, shortness of breath, chest pain, dizziness, or fainting. Types of treatment You may not need treatment for SVT if you have only rare??episodes. If you do need treatment, thereare several kinds. They include: ???Valsalva maneuver. This is a way to increase pressure in the belly (abdomen) and chest. It's done to trigger a slowing effect on the heart. It can correct your heart rhythm right away. To do it, you bear down with your stomach muscles, as though you are trying to have a bowel movement. ???Carotid massage. Your healthcare provider may rub the carotid artery in your neck. This producesa slowing heart rate reflex in the heart and can sometimes stop the arrhythmia. ???Medicine. There are various kinds you can take. Calcium channel??or beta blockers??can help correct heart rhythm. If you have SVT only 1 or 2 times a year, you may take beta-blockers or calcium channel??medicines by mouth (orally)??as needed. If your SVT is more frequent, you may need to take medicine every day. Some people may need to take several medicines to prevent episodes of SVT. For emergent cases, calcium channel or beta blockers can be given through IV (intravenously) for more rapidcorrection of the heart rhythm. Adenosine is another medicine that can be given through IV as well that can work in a matter of seconds. It's not available in an oral form. ???Electrical cardioversion. This is a shock to the heart to restart a normal rhythm right away. This may be done if you have a severe episode of SVT. ???Catheter ablation. This can cure??SVT. Your healthcare provider puts a thin, flexible tube (catheter) into a blood vessel in the groin. They then gently push it up into your heart. The area of your heart that causes your SVT is then??either cauterized with heat or scarred with freezing energy. This prevents that area from starting a signal that causes SVT. An ablation may need to be repeated if a new excited nerve area in the atria develops and the SVT returns. Lifestyle changes to help prevent SVT episodes Your healthcare provider might suggest other ways to help prevent SVT, such as: ???Have less alcohol and caffeine. ???Don't smoke. ???Lower your stress. ???Eat foods that are healthy for your heart. ???Don't take recreational drugs, especially stimulants that can over-excite the heart muscle. Someherbs and supplements can have this same effect. Always check with your healthcare team before you take any nonprescribed medicines. ???Stay well hydrated and get enough sleep. When to call your healthcare provider Call your healthcare provider if you have any of the following: ???Severe palpitations ???Severe dizziness or fainting ???Severe chest pain ???Symptoms that are happening more often Call 911 Call 911 if you have sudden shortness of breath. ?? [phone] [employer]. All rights reserved. This information is not intended as a substitute for professional medical care. Always follow your healthcare professional's instructions. 01/07/2024 15:14:49 Supraventricular Tachycardia Understanding Supraventricular Tachycardia Supraventricular tachycardia (SVT) is a type of abnormal heart rhythm that results in a fast heartbeat. It is caused by a problem in the electrical system of the heart. The word supraventricular means above the ventricles. With SVT, the abnormal rhythm starts in the upper heart chambers (atria). The heart normally beats roughly 60 to 100 beats per minute while you are at rest and awake. With SVT, the heart beats more than 100 times a minute. It may even beat over 200 times a minute. Because the heart is beating so fast, the chambers of the heart don't have enough time to fully fill. So less blood is pumped through the heart. How the heart beats A heartbeat is the rhythm of the heart as it contracts to squeeze blood through the body. It is driven by electrical signals in the heart. A beat normally starts when a special group of cells give off an electrical signal. These cells are in the upper right chamber of your heart (right atrium). They are called the sinoatrial (SA) node. The signal from the SA node travels down the atria to the atrioventricular (AV) node. This is another special group of cells between the atria and ventricles. The AV node serves as a gis geographer for signals passing through the heart to your lower chambers. From the AV node, the signal travels to your left and right ventricles. As the electrical signal travels along this pathway, it tells nearby parts of your heart to contract. This causes your heart to pump in a coordinated way. What is SVT? When you have SVT, the signal to start your heartbeat doesn???t come from the SA node. Instead it comes from another part of the left or right atrium. Or it may come from the AV node. In SVT, the electrical signals are rapid. This causes a rapid heartbeat of over 100 beats per minute. In some cases, the electrical signals are caught up in a looping circuit. This rapid beating shortens the time your ventricles have to fill. If your heartbeat is fast enough, your heart may not be able to pump enough blood to the rest of your body. As a result, you may feel many symptoms linked to not getting enough blood flow. The problem heartbeat may last for a few seconds to a few hours. Then your heart returns to its normal rhythm. Some SVT rhythms can last for days or weeks. Some even become lifelong (permanent). Types of SVT There are several types of SVT. They include: ???Atrial fibrillation (AFib). This is the most common type of SVT. The upper chambers of the heartquiver very fast instead of pumping. This is caused by electrical problems in the atria. The contractions of the heart are very irregular. ???Atrial flutter. The upper chambers of the heart flutter instead of pumping normally. This may cause a regular or irregular pulse. ???Atrioventricular martin re-entrant tachycardia. This occurs when you have two channels instead ofone through the AV node. The signal goes down one channel and up the other. So the signal re-enters the atria. This causes a fast heart rate. ???Atrioventricular reciprocating tachycardia. With this condition, there is an extra connection ofmuscle between the atrium and the ventricle. This extra connection is known as an accessory pathway. It can conduct electricity both upward and downward. The signal starts down the normal pathway through the AV node. But then it goes back up to the atrium through the accessory pathway. The signal then goes down the AV node again. This circular pattern leads to an abnormal heart rhythm. This type of SVT is generally not serious (benign). In rare cases, it may lead to an abnormal heart rhythm that may cause sudden . This type of SVT is from a problem you were born with (congenital). ???Atrial tachycardia. This is another common type of SVT. A small group of cells in the atria begin to fire abnormally and compete with the sinus node. This starts an abnormally fast heartbeat. ???Multifocal atrial tachycardia. With this type of SVT, several groups of cells in your atria fireabnormally and trigger a fast heartbeat. What causes SVT? Some types of SVT run in families. Some people have heart problems from that may lead to SVT.High blood pressure, heart failure, heart valve disease, sleep apnea, thyroid problems, and heart attacks can also cause SVT. Smoking, excess caffeine or alcohol, and some medicines can raise your risk for SVT. Symptoms of SVT When SVT happens, you may feel no symptoms. Or you may have: ???Fluttering feelings in your chest (palpitations) ???A tight feeling or pain in your chest ???A pulsing feeling in your neck ???Dizziness ???Shortness of breath ???Tiredness ???Fainting ???Nausea In very rare cases, SVT can cause sudden . Diagnosing SVT Your main healthcare provider may diagnose you. Or you may see a healthcare provider who specializes in heart conditions (yard caller). The provider will ask about your health history. They will also give you a physical exam and do one or more tests. These tests can help show what kind of SVT you have, and what may be causing it. They also help check for other problems. The tests may include: ???Electrocardiogram (ECG), to look at the abnormal rhythm ???Continuous heart monitors such as a Holter monitor or an event recorder. This is to watch your heart rhythm over a longer period of time to catch and document the SVT rhythm. ???Blood tests, to look for causes such as thyroid problems or electrolyte problems ???Chest X-ray, to check for lung problems and look at the size of your heart ???Exercise stress test, to see how well your heart works under stress ???Echocardiography (echo), to check your heart structure and function ???Electrophysiology studies (EPS). This is an invasive procedure using a thin tube (catheter) put into a blood vessel to the heart. This test checks the heart's electrical signals and can help find out the type of SVT. Treating SVT Treatment for SVT will depend on the length of time you have had it. It will also depend on how often you have it and how serious it is. Treatments may include: ???Vagal maneuvers ???Medicines to slow your heart rate ???Electrical shock to get your heart back into rhythm (cardioversion) ???Catheter ablation ???Blood thinners to prevent stroke. This depends on the type of SVT you have. If you develop SVT, talk with your healthcare provider about the best treatment options for you. ?? The [employer]. All rights reserved. This information is not intended as a substitute for professional medical care. Always follow your healthcare professional's instructions. 01/07/2024 15:14:24 Hypokalemia Discharge Instructions for Hypokalemia You have been diagnosed with hypokalemia. This means you have a low level of potassium in your blood. Potassium helps??your nerve and muscle cells work as they should. These cells include the cells??in your heart. A low level of potassium in the blood can cause serious problems, such as abnormal heart rhythms and even a heart attack. Diet changes Eat more potassium-rich foods such as: ???Bananas ???Oranges and orange juice ???Tomatoes, tomato sauce, and tomato juice ???Leafy green vegetables, such as spinach, kale, salad greens, collards, and chard ???Melons (all kinds) ???Pomegranates ???Peas ???Beans ???Potatoes ???Sweet potatoes ???Avocados, including guacamole ???Vegetable juices, such as V8 ???Fruit juices ???All nuts and seeds ???Fish, including tuna, halibut, salmon, cod, snapper, gavin, swordfish, and perch ???Milk, including fat-free, low-fat, whole, chocolate, and buttermilk ???Soy milk Other home care ???Take a potassium supplement as directed by your healthcare provider. ???After heavy exercise or any activity that causes you to sweat a lot, grab a beverage high in potassium. This includes chocolate milk, coconut water, orange juice, or low-sodium vegetable juices. ???Be sure to eat foods or drink fluids with potassium if you have diarrhea or vomiting. ???Have your potassium levels checked regularly as directed. ???Take all medicines exactly as directed. ???Tell your healthcare provider about all prescription and cupr-fln-vopxnyn medicines you are taking. This includes herbal products. Some water pills (diuretics) can cause you to lose potassium. ???Don't have foods that are high in salt. Pass up canned and prepared foods that are high in salt. Follow-up ???Make a follow-up appointment as directed by our staff. ???Keep all follow-up appointments. Your healthcare provider needs to monitor your condition closely. When to call your healthcare provider Call your provider right away or go to the emergency room if you have any of the following: ???Vomiting ???Fatigue ???Diarrhea ???Rapid, irregular heartbeat ???Shortness of breath ???Chest pain ???Muscle cramps, spasms, or twitching ???Weakness ???Paralysis ?? [employer]. All rights reserved. This information is not intended as a substitute for professional medical care. Always follow your healthcare professional's instructions. Implantable Device List Procedure Provider Procedure Date Device Type Site Insertion Defibrillator Unknown 02/19/23 Unknown C hest Device Identifier Serial Number Lot or Batch Number Manufacturing Date Expiration Date Distinct Identification Code MRI Safety Implantable Status Assigning Authority Unknown N/A [id number] Unknown 09/18/24 Unknown Unknown Active Unknown Unknown [id number] N/A Unknown 01/31/24 Unknown Unknown Active Unknown Unknown [id number] 96V N/A Unknown 09/07/24 Unknown Unknown Active Unknown Unknown [id number] N/A Unknown 03/28/23 Unknown Unknown Active Unknown Unknown [id number] 12V N/A Unknown 06/07/23 Unknown Unknown Active Unknown Note * Shannon Hager NP: PERFORM Event Display: Consult - Cardiology Authored Date: [id number] Chief Complaint/Reason for Consultation pacemaker malfunction History of Present Illness 78-year-old male with past medical history of??ORLIN on CPAP, DM,??atrial fibrillation on chronic anticoagulation, coronary artery disease, CHF with??who came to the emergency room after feeling palpitations??and??felt that his ICD??device had shocked him. ??Device was interrogated in the emergency room and did show??in fact that the patient??failed ATP and was shocked once.?? Device was subsequently reprogrammed.?? Patient was started on amiodarone drip and admitted??to the floor. ??On exam patient denies??presyncope, syncope, chest pain, palpitations,??shortness of breath. Review of Systems 10 systems negative except as stated in the history of present illness Objective Vital Signs (24 hrs) Last Charted?? Minimum?? Maximum?? Temp?? L??36.4?? 01/07/2024 11:16?? 36.8?? 01/06/2024 16:31 ?? 36.8?? 01/06/2024 16:31?? Peripheral Pulse Rate?? 60?? 01/07/2024 11:16?? 60?? 01/07/2024 06:47 ?? 65?? 01/06/2024 16:31?? Resp Rate?? 18?? 01/07/2024 11:00?? 16?? 01/07/2024 06:47 ?? 18?? 01/06/2024 16:31?? SBP?? 115?? 01/07/2024 11:16?? 107?? 01/06/2024 23:09 ?? 119?? 01/07/2024 06:47?? DBP?? 67?? 01/07/2024 11:16?? L??56?? 01/06/2024 23:09 ?? 67?? 01/07/2024 11:16?? MAP?? 83?? 01/07/2024 11:16?? 73?? 01/06/2024 23:09 ?? 84?? 01/07/2024 06:47?? SpO2?? 98?? 01/07/2024 11:16?? 95?? 01/07/2024 06:47 ?? 98?? 01/06/2024 23:09?? O2 Therapy? Room air?? Room air ? Pain Scores (Last Within 24hrs) Numeric Pain Scale: 0 = No pain (00:00) ? I&O 24 Hour Total? 01/06 13:04 01/07 07:00 01/06 07:00 01/05 07:00 01/04 07:00 ?? 01/07 13:23 01/07 13:23 01/07 06:59 01/06 06:59 01/05 06:59 Intake ? 1935.9 ?300 ?984.5 ?651.5 ?0 Output ?0 ?0 ?0 ?0 ?0 Net Total ? 1935.9 ?300 ?984.5 ?651.5 ?0 Urine Count ?8 ?2 ?5 ?1 ?0 Stool Count ?2 ?1 ?1 ?0 ?0 ? Black Coma Scale Eye Opening Response Black: Spontaneously (01/06/24 20:00:00) Best Verbal Response [place]: Oriented and converses (01/06/24 20:00:00) Best Motor Response Black: Obeys commands (01/06/24 20:00:00) [place] Coma Score: 15 (01/06/24 20:00:00) ?? Mental Status Exam ? Alert and oriented x 3 ? Stroke Assessments Black Coma Scale Eye Opening Response Black: Spontaneously (01/06/24 20:00:00) Best Verbal Response Black: Oriented and converses (01/06/24 20:00:00) Best Motor Response Black: Obeys commands (01/06/24 20:00:00) Black Coma Score: 15 (01/06/24 20:00:00) ? Physical Exam ??General: Alert, in no acute cardiopulmonary distress.?? Elderly obese?? male Mental Status: Oriented to person, place and time. Normal affect. Head: Normocephalic. Eyes:?? Extraocular muscles intact. Ear, Nose and Throat: Oropharynx clear, mucous membranes moist.?? Trachea midline. Neck: Supple, Full range of motion.?? No JVD noted Respiratory: Clear to auscultation and percussion. No wheezing, rales or rhonchi. Cardiovascular: Heart sounds normal. No thrills. Regular rate and rhythm, no murmurs, rubs or gallops. Gastrointestinal: Abdomen soft, non-tender, non-distended. Normal bowel sounds. Genitourinary: No costovertebral angle tenderness. Neurologic: No focal neurological deficits. Moves all extremities spontaneously. Skin: No rashes or lesions. No petechiae or purpura. No edema. Musculoskeletal: No cyanosis or clubbing. No gross deformities. Normal range of motion. Lymphatics: Palpation of neck reveals no swelling or tenderness of neck nodes. Palpation of groin reveals no swelling or tenderness of groin nodes. _ Assessment/Plan Diagnoses Sustained ventricular tachycardia requiring icd shock Acute hypokalemia ??(E87.6) Atrial fibrillation ??(I48.91) CKD (chronic kidney disease), stage III ??(N18.30) COPD mixed type ??(J44.9) Class 1 obesity ??(E66.9) Defibrillator discharge ??(Z45.02) Diabetes mellitus ??(E11.9) Ischemic cardiomyopathy ??(I25.5) Mixed hyperlipidemia due to type 2 diabetes mellitus ??(E11.69) On continuous oral anticoagulation ??(Z79.01) Type 2 WA (myocardial infarction) ??(I21.A1) ?? Plan: Continue tele care Continue amiodarone 400mg po daily Continue met succ 50mg po qHS Continue diuresis ICD interrogated and subsequently reprogrammed ? Shannon Szymanski, DINORA BC, am scribing on behalf of Dr. Melania Rich Discharge Planning:?Discharge Planning:?Discharge To, Anticipated:??Home with family care ? Histories Allergies Allergies ?(Active and Proposed Allergies Only) codeine? (Severity: Unknown severity, Onset: Unknown) ?Reactions: hives penicillin? (Severity: Unknown severity, Onset: Unknown) ?Reactions: hives ? Past Medical History Active Problems(31) Aortic valve sclerosis Atrial fibrillation Bifascicular block BPH (benign prostatic hyperplasia) Bradycardia CAD (coronary artery disease) Cardiomyopathy Chest pain CHF (congestive heart failure) COPD (chronic obstructive pulmonary disease) Diabetes First degree AV block Former smoker History of sepsis HTN (hypertension) Hyperlipemia Ischemic cardiomyopathy Mitral valve regurgitation Myocardial infarct, old Nonischemic cardiomyopathy Obesity Pulmonary edema cardiac cause Right bundle branch block (RBBB) on electrocardiogram (ECG) Shortness of breath SSS (sick sinus syndrome) SVT (supraventricular tachycardia) Syncope Tachycardia Thyroid condition Tricuspid valve regurgitation Vertigo, benign positional ? Past Surgical History Insertion Defibrillator (Laterality NA): 02/19/23 TRINY: 01/04/23 Direct current cardioversion: 01/04/23 Cholecystectomy;: 2020 LHC: 08/14/19 LHC / PTCA: 11/06/13 Appendectomy;: 03/20/64 inguinal hernia repair ? Social History Alcohol Details:??Current, 1-2 times per year Substance Abuse Details:??Denies Tobacco Details:??Denies ? Family History No Family History documented. ? Functional Assessments ? Medications Home Medications amiodarone (amiodarone 100 mg oral tablet)?200?Milligram?2?Tabs?By Mouth?Daily apixaban (apixaban 5 mg oral tablet)?5?Milligram?1?Tabs?By Mouth?2 Times a Day ascorbic acid (ascorbic acid 500 mg oral tablet)?500?Milligram?1?Tabs?By Mouth?Daily aspirin (aspirin 81 mg oral tablet, chewable)?81?Milligram?1?Tabs?Chewed?Daily atorvastatin (atorvastatin 40 mg oral tablet)?40?Milligram?1?Tabs?By Mouth?at Bedtime cholecalciferol (cholecalciferol 25 mcg (1000 intl units) oral capsule)?25?Microgram?1?Capsules?By Mouth?Daily empagliflozin (Jardiance 25 mg oral tablet)?0.5 ??TAB?By Mouth?Every AM finasteride (Proscar 5 mg oral tablet)?5?Milligram?1?Tabs?By Mouth?Daily FLUoxetine (PROzac 20 mg oral capsule)?20?Milligram?1?Capsules?By Mouth?Daily furosemide (Lasix 40 mg oral tablet)?80?Milligram?2?Tabs?By Mouth?Every AM furosemide (Lasix 40 mg oral tablet)?40?Milligram?1?Tabs?By Mouth?After Lunch lactobacillus acidophilus (lactobacillus acidophilus oral capsule)?1?Capsules?By Mouth?Daily levothyroxine (Synthroid 25 mcg (0.025 mg) oral tablet)?25?Microgram?1?Tabs?By Mouth?Daily loratadine (loratadine 10 mg oral tablet)?10?Milligram?1?Tabs?By Mouth?Daily metoprolol (Metoprolol Succinate ER 50 mg oral tablet, extended release)?50?Milligram?1?Tabs?By Mouth?at Bedtime nitroglycerin (nitroglycerin 0.4 mg sublingual tablet)?0.4?Milligram?1?Tabs?Sublingual?Now and Every 5 minutes?as needed?as needed for chest pain?not to exceed 3 doses/15 mi n--if pain persists, seek medical attention pantoprazole (Protonix 20 mg oral enteric coated tablet)?20?Milligram?1?Tabs?By Mouth?Daily rOPINIRole (rOPINIRole 0.5 mg oral tablet)?0.5?Milligram?1?Tabs?By Mouth?3 Times a Day sacubitril-valsartan (sacubitril-valsartan 24 mg-26 mg oral tablet)?See Instructions?0.5 TabsOral BID spironolactone (spironolactone 25 mg oral tablet)?25?Milligram?1?Tabs?By Mouth?Daily tamsulosin (tamsulosin 0.4 mg oral capsule)?0.4?Milligram?1?Capsules?By Mouth?2 Times a Day ? Inpatient Medications Medications (31) Active SCHEDULED: (26) amiodarone 200 mg Tab (amiodarone) ??200 mg 1 Tabs, Oral, Daily apixaban 5 mg Tab (apixaban) ??5 mg 1 Tabs, Oral, BID aspirin 81 mg Chew Tab (aspirin) ??81 mg 1 Tabs, Chewed, Daily atorvastatin 40 mg Tab (atorvastatin) ??40 mg 1 Tabs, Oral, qHS dapagliflozin 10 mg Tab (dapagliflozin) ??10 mg 1 Tabs, Oral, Daily ethanol topical (Nozin POPswab 62% topical swab) ??1 amp, Topical, BID finasteride 5 mg Tab (Proscar) ??5 mg 1 Tabs, Oral, Daily FLUoxetine 20 mg Cap (PROzac) ??20 mg 1 Caps, Oral, Daily furosemide 40 mg Tab (Lasix) ??40 mg 1 Tabs, Oral, Daily Hypoglycemia Protocol Advisor ??Protocol, N/A, Daily insulin regular, human REC 1 unit/ 0.01 mL (insulin regular Correctional scale Intermediate) ??3-13units, SubCutaneous, Before Meals and HS levothyroxine 25 mcg (0.025 mg) Tab (Synthroid) ??25 mcg 1 Tabs, Oral, Daily loratadine 10 mg Tab (loratadine) ??10 mg 1 Tabs, Oral, Daily metoprolol succinate 50 mg XL Tab (Metoprolol Succinate ER) ??50 mg 1 Tabs, Oral, qHS nitroglycerin 2% Top Oint 1 gm (Nitro-Bid) ??1 inch, Topical, q6H pantoprazole 20 mg Oral EC Tab (Protonix) ??20 mg 1 Tabs, Oral, Daily potassium chloride 20 mEq ER Tab (potassium chloride) ??20 mEq 1 Tabs, Oral, Daily potassium phos-sodium phos Phos-NAK Powder UD (Neutra-Phos) ??1 Packets, Oral, BID Protocol (Magnesium Oxide - Oral.) ??Protocol, N/A, q72H Interval Protocol (Magnesium Sulfate - IV.) ??Protocol, N/A, q72H Interval Protocol (Sodium Phosphate - Oral.) ??Protocol, N/A, q72H Interval Protocol (Sodium Phosphate - IV.) ??Protocol, N/A, q72H Interval Protocol (Potassium Chloride - Oral & IV.) ??Protocol, N/A, q72H Interval rOPINIRole 0.25 mg Tab (rOPINIRole) ??0.5 mg 2 Tabs, Oral, TID spironolactone 25 mg Tab (spironolactone) ??25 mg 1 Tabs, Oral, Daily tamsulosin 0.4 mg SA Cap (tamsulosin) ??0.4 mg 1 Caps, Oral, BID CONTINUOUS: (1) amiodarone/D5W 360 mg [0.5 mg/min] + Premix D5W 200 mL (amiodarone IV additive 360 mg [0.5 mg/min] + Premix D5W 200 mL) ??200 mL, IV, 16.67 mL/hr PRN: (4) acetaminophen 325 mg Tab (Tylenol) ??650 mg 2 Tabs, Oral, q4H ALPRAZolam 0.25 mg Tab (ALPRAZolam) ??0.25 mg 1 Tabs, Oral, q12H Interval ondansetron 4 mg/2 mL vial (Zofran) ??4 mg 2 mL, IV Push, q15Min Interval ondansetron 4 mg/2 mL vial (Zofran) ??4 mg 2 mL, IV Push, q6H ? 72 hour Antibiotic History No qualifying data available... ? Results Recent Labs Cardiac BNP 143.0 pg/mL (High)?? 01/06/2024 11:16 ?? General Chemistry Glucose Level 160 mg/dL (High)?? 01/07/2024 06:25 POC Glucose 128 mg/dL (High)?? 01/07/2024 11:17 Sodium 141 mmol/L (Normal)?? 01/07/2024 06:25 Potassium 4.8 mmol/L (Normal)?? 01/07/2024 06:25 Chloride 107 mmol/L (Normal)?? 01/07/2024 06:25 CO2 32 mmol/L (Normal)?? 01/07/2024 06:25 Anion Gap 2 mmol/L (Low)?? 01/07/2024 06:25 BUN 22 mg/dL (High)?? 01/07/2024 06:25 Creatinine 1.4 mg/dL (High)?? 01/07/2024 06:25 BUN/Creat Ratio 15.71 Ratio (Normal)?? 01/07/2024 06:25 Calcium 9.3 mg/dL (Normal)?? 01/07/2024 06:25 Mg Lvl 2.3 mg/dL (Normal)?? 01/07/2024 06:25 Phosphorus 4.5 mg/dL (Normal)?? 01/07/2024 06:25 Estimated Creatinine Clearance 41.39 mL/min ()?? 01/07/2024 06:47 eGFR Cr 51 mL/min/1.73m2 (N/A)?? 01/07/2024 06:25 eGFR Pediatric Not Reported mL/min/1.73m2 (N/A)?? 01/07/2024 06:25 MAR Glucose Result 162 ()?? 01/07/2024 05:33 ? Abnormal Labs ?? General Chemistry Anion Gap?2 mmol/L (Low)?01/07/2024 06:25 BUN?22 mg/dL (High)?01/07/2024 06:25 Creatinine?1.4 mg/dL (High)?01/07/2024 06:25 Glucose Level?160 mg/dL (High)?01/07/2024 06:25 POC Glucose?128 mg/dL (High)?01/07/2024 11:17 ?? Note: Critical results are displayed in red. ? CBC, BMP, Coagulation Trend (last 4 resulted) WBC 8.80 ?? 01/05/2024 ??16:37 ? Hgb 15.40 ?? 01/05/2024 ??16:37 ? Hct 43.80 ?? 01/05/2024 ??16:37 ? Baso # Auto 0.1 ?? 01/05/2024 ??16:37 ? Baso % Auto 0.9 ?? 01/05/2024 ??16:37 ? Eos # Auto 0.1 ?? 01/05/2024 ??16:37 ? Eos % Auto 0.8 ?? 01/05/2024 ??16:37 ? Lymph # Auto 1.6 ?? 01/05/2024 ??16:37 ? Lymph % Auto 18.4 ??L?? 01/05/2024 ??16:37 ? Island # Auto 1.0 ?? 01/05/2024 ??16:37 ? Island % Auto 10.8 ?? 01/05/2024 ??16:37 ? Neut # Auto 6.1 ?? 01/05/2024 ??16:37 ? Neut % Auto 69.1 ?? 01/05/2024 ??16:37 ? Plt 288 ?? 01/05/2024 ??16:37 ? Glucose Level 160 ??H?? 01/07/2024 ??06:25 141 ??H?? 01/06/2024 ??11:16 121 ??H?? 01/05/2024 ??16:37 ?? Sodium 141 ?? 01/07/2024 ??06:25 134 ??L?? 01/06/2024 ??11:16 137 ?? 01/05/2024 ??16:37 ?? Potassium 4.8 ?? 01/07/2024 ??06:25 4.6 ?? 01/06/2024 ??11:16 3.6 ?? 01/05/2024 ??19:54 3.1 ??L?? 01/05/2024 ??16:37 Chloride 107 ?? 01/07/2024 ??06:25 101 ?? 01/06/2024 ??11:16 103 ?? 01/05/2024 ??16:37 ?? CO2 32 ?? 01/07/2024 ??06:25 27 ?? 01/06/2024 ??11:16 26 ?? 01/05/2024 ??16:37 ?? BUN 22 ??H?? 01/07/2024 ??06:25 23 ??H?? 01/06/2024 ??11:16 16 ?? 01/05/2024 ??16:37 ?? Creatinine 1.4 ??H?? 01/07/2024 ??06:25 1.3 ?? 01/06/2024 ??11:16 1.2 ?? 01/05/2024 ??16:37 ?? BUN/Creat Ratio 15.71 ?? 01/07/2024 ??06:25 17.69 ?? 01/06/2024 ??11:16 13.33 ?? 01/05/2024 ??16:37 ?? Mg Lvl 2.3 ?? 01/07/2024 ??06:25 2.2 ?? 01/06/2024 ??11:16 2.3 ?? 01/05/2024 ??16:37 ?? Phosphorus 4.5 ?? 01/07/2024 ??06:25 1.6 ??L?? 01/06/2024 ??11:16 ? Calcium 9.3 ?? 01/07/2024 ??06:25 9.5 ?? 01/06/2024 ??11:16 10.0 ?? 01/05/2024 ??16:37 ?? Albumin. Level 4.1 ?? 01/05/2024 ??16:37 ? T Bili 0.90 ?? 01/05/2024 ??16:37 ? Alk Phos 112 ?? 01/05/2024 ??16:37 ? AST 24 ?? 01/05/2024 ??16:37 ? ALT 36 ?? 01/05/2024 ??16:37 ? Trig 306 ??H?? 01/05/2024 ??16:37 ? aPTT 31.9 ??H?? 01/05/2024 ??16:37 ? PT 10.8 ?? 01/05/2024 ??16:37 ? INR 0.95 ?? 01/05/2024 ??16:37 ? Cardiology Labs BNP:??143 pg/mL??High (01/06/24 11:16:00) BNP: 78.7 pg/mL (01/05/24 16:37:00) Troponin TNIH:??324.1 ng/L??Critical (01/05/24 19:54:00) Troponin TNIH:??287.1 ng/L??Critical (01/05/24 17:29:00) Troponin TNIH:??158.4 ng/L??Critical (01/05/24 16:37:00) Lipids: Cholesterol:??215 mg/dL??High (01/05/24 16:37:00) Trig:??306 mg/dL??High (01/05/24 16:37:00) HDL:??35 mg/dL??Low (01/05/24 16:37:00) LDL Direct: 138 mg/dL (01/05/24 16:37:00) LDL/HDL Ratio: 4 Ratio (01/05/24 16:37:00) ? Electronically Signed By: Shannon Hager IN SERVICE EDUCATION TEACHER On: 01.07.2024 13:37 BUFFER MACHINE Electronically Signed On: 01.07.2024 17:47 BUFFER MACHINE Melania Rich MD * Marcelo Comer DO: PERFORM Event Display: Consult - Cardiology Authored Date: Chief Complaint/Reason for Consultation pacemaker malfunction History of Present Illness 78-year-old gentleman cardiology consulted for??ICD shock. ??He was playing poker??when the??felt??palpitations followed by??device shock and probably presented to the ER. ??I reviewed the device interrogation. ??Obese male COPD, ORLIN on CPAP, diabetes mellitus, atrial fibrillation on chronic anticoagulation, hypertension, CAD, congestive heart failure with reduced ejection fraction to??30 to 35% ,previously underwent AICD placement for primary prevention of sudden . He is doing fine now.?? I reviewed the device interrogation??suspicious for??atrial tachycardia??subsequent rapid ventricular rates??there were episodes of burst??ATP??and thereafter??device shock. ?? He is here in the ER now doing well on amiodarone drip. Review of Systems Constitutional: No weight loss, fever, chills, weakness [...] or polydipsia. Objective Measurements (most recent)?? Height 172.72 cm?Melania Salazar RN ??01/05 16:22 Height (inches) 68.00 inch?SYSTEM ??01/05 16:22 Weight 91.17 kg?Melania Salazar RN ??01/05 16:22 Weight (lbs) 201.00 lb?SYSTEM ??01/05 16:22 Body Mass Index 30.56 kg/m2?Melania Salazar RN ??01/05 16:22 ? Vital Signs (24 hrs) Last Charted?? Minimum?? Maximum?? Temp?? 36.8?? 01/05/2024 16:29?? 36.8?? 01/05/2024 16:29 ?? 36.8?? 01/05/2024 16:29?? Apical Heart Rate?? 81?? 01/05/2024 16:29?? 81?? 01/05/2024 16:29 ?? 81?? 01/05/2024 16:29?? Resp Rate?? 16?? 01/05/2024 19:00?? 16?? 01/05/2024 19:00 ?? C??30?? 01/05/2024 16:29?? SBP?? 128?? 01/05/2024 19:00?? 125?? 01/05/2024 17:54 ?? H??152?? 01/05/2024 18:00?? DBP?? 60?? 01/05/2024 19:00?? 60?? 01/05/2024 19:00 ?? C??99?? 01/05/2024 18:00?? MAP?? 86?? 01/05/2024 19:00?? 86?? 01/05/2024 19:00 ?? 118?? 01/05/2024 18:00?? SpO2?? 98?? 01/05/2024 19:00?? 98?? 01/05/2024 19:00 ?? 100?? 01/05/2024 16:29?? O2 Therapy?? Room air?? Room air? Assisted Ventilation Settings (Last Within 24hrs)?? FIO2: 21 % (16:50) ?? I&O 24 Hour Total? 01/05 17:21 01/05 07:00 01/04 07:00 01/03 07:00 01/02 07:00 ?? 01/05 19:22 01/05 19:22 01/05 06:59 01/04 06:59 01/03 06:59 Intake ?100 ?100 ?0 ?0 ?0 Output ?0 ?0 ?0 ?0 ?0 Net Total ?100 ?100 ?0 ?0 ?0 ? Precautions No Precautions documented.? Physical Exam General: Alert, in no acute cardiopulmonary distress. Mental Status: Oriented to person, place and time. Normal affect. Head: Normocephalic. Eyes: Pupils are equal, round and reactive to light. Extraocular muscles intact. Ear, Nose and Throat: Oropharynx clear, mucous membranes moist. Ears and nose without masses, lesions or deformities. Tympanic membranes clear bilaterally. Trachea midline. Neck: Supple, Full range of motion. Respiratory: Clear to auscultation and percussion. No wheezing, rales or rhonchi. Cardiovascular: Heart sounds normal. No thrills. Regular rate and rhythm, no murmurs, rubs or gallops. Gastrointestinal: Abdomen soft, non-tender, non-distended. Normal bowel sounds. No pulsatile mass. No hepatosplenomegaly. Genitourinary: No costovertebral angle tenderness. Neurologic: Cranial nerves II-XII grossly intact. No focal neurological deficits. Deep tendon reflexes +2 bilaterally. Flexor plantar response. Moves all extremities spontaneously. Sensation intact bilaterally. Skin: No rashes or lesions. No petechiae or purpura. No edema. Musculoskeletal: No cyanosis or clubbing. No gross deformities. Normal range of motion. Lymphatics: Palpation of neck reveals no swelling or tenderness of neck nodes. Palpation of groin reveals no swelling or tenderness of groin nodes. Assessment/Plan Diagnoses Acute hypokalemia ??(E87.6) Atrial fibrillation ??(I48.91) CKD (chronic kidney disease), stage III ??(N18.30) COPD mixed type ??(J44.9) Class 1 obesity ??(E66.9) Defibrillator discharge ??(Z45.02) Diabetes mellitus ??(E11.9) Ischemic cardiomyopathy ??(I25.5) Mixed hyperlipidemia due to type 2 diabetes mellitus ??(E11.69) On continuous oral anticoagulation ??(Z79.01) Type 2 WA (myocardial infarction) ??(I21.A1) 1. ??Sustained VT (ventricular tachycardia) ??(I47.20) ?? Assessment:??Gentleman here with a device shock??setting of??cardiomyopathy EF 30 to 35% and known atrial fibrillation. Interrogation appears to be suspicious for atrial tachycardia??resulting in rapid ventricular rates, subsequent ATPs??and thereafter??device shock. ?? Defibrillator discharge (Z45.02):??Recommend to consult electrophysiology??to optimize programming??of device. Agree with amiodarone drip??protocol for 24 hours. Thereafter continue oral amiodarone maintenance dosing. 2D echocardiogram ?? Acute hypokalemia (E87.6):??Recommend to keep??potassium??greater than 4 Avoid hyperkalemia Continue Aldactone ?? Ischemic cardiomyopathy (I25.5):? Continue Aldactone and Toprol-XL. Recommend initiate Entresto ?? Atrial fibrillation (I48.91):??Continue Eliquis 5 mg p.o. twice daily Continue maintenance dose of p.o. amiodarone. Continue Toprol-XL ?? Discharge Planning:? Order Date/Time Order Action Order Name Order Detail 01/05/2024 19:21 Cancel amiodarone 200 mg Tab (amiodarone) 400 mg, 2 Tabs, Oral, Daily ? Histories Allergies Allergies ?(Active and Proposed Allergies Only) codeine? (Severity: Unknown severity, Onset: Unknown) ?Reactions: hives penicillin? (Severity: Unknown severity, Onset: Unknown) ?Reactions: hives ? Past Medical History Active Problems(31) Aortic valve sclerosis Atrial fibrillation Bifascicular block BPH (benign prostatic hyperplasia) Bradycardia CAD (coronary artery disease) Cardiomyopathy Chest pain CHF (congestive heart failure) COPD (chronic obstructive pulmonary disease) Diabetes First degree AV block Former smoker History of sepsis HTN (hypertension) Hyperlipemia Ischemic cardiomyopathy Mitral valve regurgitation Myocardial infarct, old Nonischemic cardiomyopathy Obesity Pulmonary edema cardiac cause Right bundle branch block (RBBB) on electrocardiogram (ECG) Shortness of breath SSS (sick sinus syndrome) SVT (supraventricular tachycardia) Syncope Tachycardia Thyroid condition Tricuspid valve regurgitation Vertigo, benign positional ? Past Surgical History Insertion Defibrillator (Laterality NA): 02/19/23 TRINY: 01/04/23 Cholecystectomy;: 2020 LHC: 08/14/19 LHC / PTCA: 11/06/13 Appendectomy;: 03/20/64 inguinal hernia repair ? Social History Alcohol Details:??Current, 1-2 times per year Substance Abuse Details:??Denies Tobacco Details:??Denies ? Family History No Family History documented. ? Medications Home Medications amiodarone (amiodarone 100 mg oral tablet)?200?Milligram?2?Tabs?By Mouth?Daily apixaban (apixaban 5 mg oral tablet)?5?Milligram?1?Tabs?By Mouth?2 Times a Day aspirin (aspirin 81 mg oral tablet, chewable)?81?Milligram?1?Tabs?Chewed?Daily atorvastatin (atorvastatin 40 mg oral tablet)?40?Milligram?1?Tabs?By Mouth?at Bedtime empagliflozin (Jardiance 25 mg oral tablet)?0.5 ??TAB?By Mouth?Every AM finasteride (Proscar 5 mg oral tablet)?5?Milligram?1?Tabs?By Mouth?Daily FLUoxetine (PROzac 20 mg oral capsule)?20?Milligram?1?Capsules?By Mouth?Daily furosemide (Lasix 40 mg oral tablet)?40?Milligram?1?Tabs?By Mouth?Daily?2 tab in AM 1 tab in PM levothyroxine (Synthroid 25 mcg (0.025 mg) oral tablet)?25?Microgram?1?Tabs?By Mouth?Daily loratadine (loratadine 10 mg oral tablet)?10?Milligram?1?Tabs?By Mouth?Daily metFORMIN (metFORMIN 500 mg oral tablet)?500?Milligram?1?Tabs?By Mouth?Daily?as needed?Blood Glucose (please specify)?for blood sugar over 200 metoprolol (Metoprolol Succinate ER 50 mg oral tablet, extended release)?50?Milligram?1?Tabs?By Mouth?at Bedtime pantoprazole (Protonix 20 mg oral enteric coated tablet)?20?Milligram?1?Tabs?By Mouth?Daily rOPINIRole (rOPINIRole 0.5 mg oral tablet)?0.5?Milligram?1?Tabs?By Mouth?3 Times a Day spironolactone (spironolactone 25 mg oral tablet)?25?Milligram?1?Tabs?By Mouth?Daily tamsulosin (tamsulosin 0.4 mg oral capsule)?0.4?Milligram?1?Capsules?By Mouth?2 Times a Day ? Inpatient Medications Medications (30) Active SCHEDULED: (24) amiodarone 200 mg Tab (amiodarone) ??200 mg 1 Tabs, Oral, Daily apixaban 5 mg Tab (apixaban) ??5 mg 1 Tabs, Oral, BID aspirin 81 mg Chew Tab (aspirin) ??81 mg 1 Tabs, Chewed, Daily atorvastatin 40 mg Tab (atorvastatin) ??40 mg 1 Tabs, Oral, qHS finasteride 5 mg Tab (Proscar) ??5 mg 1 Tabs, Oral, Daily FLUoxetine 20 mg Cap (PROzac) ??20 mg 1 Caps, Oral, Daily furosemide 40 mg Tab (Lasix) ??40 mg 1 Tabs, Oral, Daily Hypoglycemia Protocol Advisor ??Protocol, N/A, Daily insulin regular, human REC 1 unit/ 0.01 mL (insulin regular Correctional scale Intermediate) ??3-13units, SubCutaneous, Before Meals and HS levothyroxine 25 mcg (0.025 mg) Tab (Synthroid) ??25 mcg 1 Tabs, Oral, Daily loratadine 10 mg Tab (loratadine) ??10 mg 1 Tabs, Oral, Daily metoprolol succinate 50 mg XL Tab (Metoprolol Succinate ER) ??50 mg 1 Tabs, Oral, qHS Nitro Ointment Removal ??1 inch, Topical, Once nitroglycerin 2% Top Oint 1 gm (Nitro-Bid) ??1 inch, Topical, q6H pantoprazole 20 mg Oral EC Tab (Protonix) ??20 mg 1 Tabs, Oral, Daily potassium chloride 20 mEq ER Tab (K-Dur 20) ??40 mEq 2 Tabs, Oral, Once Protocol (Magnesium Oxide - Oral.) ??Protocol, N/A, q72H Interval Protocol (Magnesium Sulfate - IV.) ??Protocol, N/A, q72H Interval Protocol (Sodium Phosphate - Oral.) ??Protocol, N/A, q72H Interval Protocol (Sodium Phosphate - IV.) ??Protocol, N/A, q72H Interval Protocol (Potassium Chloride - Oral & IV.) ??Protocol, N/A, q72H Interval rOPINIRole 0.25 mg Tab (rOPINIRole) ??0.5 mg 2 Tabs, Oral, TID spironolactone 25 mg Tab (spironolactone) ??25 mg 1 Tabs, Oral, Daily tamsulosin 0.4 mg SA Cap (tamsulosin) ??0.4 mg 1 Caps, Oral, BID CONTINUOUS: (2) amiodarone/D5W 360 mg [0.5 mg/min] + Premix D5W 200 mL (amiodarone IV additive 360 mg [0.5 mg/min] + Premix D5W 200 mL) ??200 mL, IV, 16.67 mL/hr amiodarone/D5W 360 mg [1 mg/min] + Premix D5W 200 mL (amiodarone IV additive 360 mg [1 mg/min] + Premix D5W 200 mL) ??200 mL, IV, 33.33 mL/hr PRN: (4) acetaminophen 325 mg Tab (Tylenol) ??650 mg 2 Tabs, Oral, q4H ALPRAZolam 0.25 mg Tab (ALPRAZolam) ??0.25 mg 1 Tabs, Oral, q12H Interval ondansetron 4 mg/2 mL vial (Zofran) ??4 mg 2 mL, IV Push, q15Min Interval ondansetron 4 mg/2 mL vial (Zofran) ??4 mg 2 mL, IV Push, q6H ? IV Titrations (Last 24 hrs) Most Recent Infusions (Max of 3)? 01/05 18:20 ? amiodarone IV additive 360 mg [1 mg/min] + Premix D5W 200 mL 1 mg/min ? 72 hour Antibiotic History No qualifying data available... ?? Vaccinations and Immunoprophylaxis COVID-19 Vaccine Status: Fully +1 or more booster(s) (01/05/24 16:23:00) COVID-19 Vaccine Status: Fully +1 or more [...] Fully +1 or more booster(s) (12/17/22 14:34:00) ?? Results Recent Labs Cardiac BNP 78.7 pg/mL (Normal)?? 01/05/2024 16:37 Troponin TNIH 287.1 ng/L (Critical)?? 01/05/2024 17:29 ?? General Chemistry Glucose Level 121 mg/dL (High)?? 01/05/2024 16:37 Sodium 137 mmol/L (Normal)?? 01/05/2024 16:37 Potassium 3.1 mmol/L (Low)?? 01/05/2024 16:37 Chloride 103 mmol/L (Normal)?? 01/05/2024 16:37 CO2 26 mmol/L (Normal)?? 01/05/2024 16:37 Anion Gap 8 mmol/L (Normal)?? 01/05/2024 16:37 BUN 16 mg/dL (Normal)?? 01/05/2024 16:37 Creatinine 1.2 mg/dL (Normal)?? 01/05/2024 16:37 BUN/Creat Ratio 13.33 Ratio (Normal)?? 01/05/2024 16:37 Calcium 10.0 mg/dL (Normal)?? 01/05/2024 16:37 Albumin. Level 4.1 gm/dL (Normal)?? 01/05/2024 16:37 TP 7.8 gm/dL (Normal)?? 01/05/2024 16:37 T Bili 0.90 mg/dL (Normal)?? 01/05/2024 16:37 Alk Phos 112 Intl_units/L (Normal)?? 01/05/2024 16:37 AST 24 Intl_units/L (Normal)?? 01/05/2024 16:37 ALT 36 Intl_units/L (Normal)?? 01/05/2024 16:37 Mg Lvl 2.3 mg/dL (Normal)?? 01/05/2024 16:37 Estimated Creatinine Clearance 48.29 mL/min ()?? 01/05/2024 17:00 eGFR Cr 62 mL/min/1.73m2 (N/A)?? 01/05/2024 16:37 eGFR Pediatric Not Reported mL/min/1.73m2 (N/A)?? 01/05/2024 16:37 ?? General Coagulation PT 10.8 Seconds (Normal)?? 01/05/2024 16:37 INR 0.95 (Normal)?? 01/05/2024 16:37 aPTT 31.9 Seconds (High)?? 01/05/2024 16:37 ?? General Hematology WBC 8.80 x10e3/mcL (Normal)?? 01/05/2024 16:37 RBC 4.43 x10e6/mcL (Low)?? 01/05/2024 16:37 Hgb 15.40 gm/dL (Normal)?? 01/05/2024 16:37 Hct 43.80 % (Normal)?? 01/05/2024 16:37 MCV 98.9 Femtoliters (Normal)?? 01/05/2024 16:37 MCH 34.70 pg (High)?? 01/05/2024 16:37 MCHC 35.10 gm/dL (Normal)?? 01/05/2024 16:37 RDW-SD 47.70 Femtoliters (High)?? 01/05/2024 16:37 RDW-CV 13.50 % (Normal)?? 01/05/2024 16:37 Plt 288 x10e3/mcL (Normal)?? 01/05/2024 16:37 MPV 7.70 Femtoliters (Normal)?? 01/05/2024 16:37 Neut % Auto 69.1 % (Normal)?? 01/05/2024 16:37 Lymph % Auto 18.4 % (Low)?? 01/05/2024 16:37 Island % Auto 10.8 % (Normal)?? 01/05/2024 16:37 Eos % Auto 0.8 % (Normal)?? 01/05/2024 16:37 Baso % Auto 0.9 % (Normal)?? 01/05/2024 16:37 Neut # Auto 6.1 x10e3/mcL (Normal)?? 01/05/2024 16:37 Lymph # Auto 1.6 x10e3/mcL (Normal)?? 01/05/2024 16:37 Island # Auto 1.0 x10e3/mcL (Normal)?? 01/05/2024 16:37 Eos # Auto 0.1 x10e3/mcL (Normal)?? 01/05/2024 16:37 Baso # Auto 0.1 x10e3/mcL (Normal)?? 01/05/2024 16:37 ?? Lipids Cholesterol 215 mg/dL (High)?? 01/05/2024 16:37 Trig 306 mg/dL (High)?? 01/05/2024 16:37 HDL 35 mg/dL (Low)?? 01/05/2024 16:37 LDL Direct 138 mg/dL (N/A)?? 01/05/2024 16:37 LDL/HDL Ratio 4 Ratio (Normal)?? 01/05/2024 16:37 ?? Thyroid T3 Uptake 33.00 % (Normal)?? 01/05/2024 16:37 Total Thyroxine (T4) 11.60 mcg/dL (Normal)?? 01/05/2024 16:37 TSH 3.530 mc Intl units/mL (Normal)?? 01/05/2024 16:37 ? Abnormal Labs ?? Cardiac Troponin TNIH?287.1 ng/L (Critical)?01/05/2024 17:29 ?? General Chemistry Glucose Level?121 mg/dL (High)?01/05/2024 16:37 Lymph % Auto?18.4 % (Low)?01/05/2024 16:37 MCH?34.70 pg (High)?01/05/2024 16:37 Potassium?3.1 mmol/L (Low)?01/05/2024 16:37 RBC?4.43 x10e6/mcL (Low)?01/05/2024 16:37 RDW-SD?47.70 Femtoliters (High)?01/05/2024 16:37 aPTT?31.9 Seconds (High)?01/05/2024 16:37 ?? Lipids Cholesterol?215 mg/dL (High)?01/05/2024 16:37 HDL?35 mg/dL (Low)?01/05/2024 16:37 Trig?306 mg/dL (High)?01/05/2024 16:37 ?? Note: Critical results are displayed in red. ? CBC, BMP, Coagulation Trend (last 4 resulted) WBC 8.80 ?? 01/05/2024 ??16:37 ? Hgb 15.40 ?? 01/05/2024 ??16:37 ? Hct 43.80 ?? 01/05/2024 ??16:37 ? Baso # Auto 0.1 ?? 01/05/2024 ??16:37 ? Baso % Auto 0.9 ?? 01/05/2024 ??16:37 ? Eos # Auto 0.1 ?? 01/05/2024 ??16:37 ? Eos % Auto 0.8 ?? 01/05/2024 ??16:37 ? Lymph # Auto 1.6 ?? 01/05/2024 ??16:37 ? Lymph % Auto 18.4 ??L?? 01/05/2024 ??16:37 ? Island # Auto 1.0 ?? 01/05/2024 ??16:37 ? Island % Auto 10.8 ?? 01/05/2024 ??16:37 ? Neut # Auto 6.1 ?? 01/05/2024 ??16:37 ? Neut % Auto 69.1 ?? 01/05/2024 ??16:37 ? Plt 288 ?? 01/05/2024 ??16:37 ? Glucose Level 121 ??H?? 01/05/2024 ??16:37 ? Sodium 137 ?? 01/05/2024 ??16:37 ? Potassium 3.1 ??L?? 01/05/2024 ??16:37 ? Chloride 103 ?? 01/05/2024 ??16:37 ? CO2 26 ?? 01/05/2024 ??16:37 ? BUN 16 ?? 01/05/2024 ??16:37 ? Creatinine 1.2 ?? 01/05/2024 ??16:37 ? BUN/Creat Ratio 13.33 ?? 01/05/2024 ??16:37 ? Mg Lvl 2.3 ?? 01/05/2024 ??16:37 ? Calcium 10.0 ?? 01/05/2024 ??16:37 ? Albumin. Level 4.1 ?? 01/05/2024 ??16:37 ? T Bili 0.90 ?? 01/05/2024 ??16:37 ? Alk Phos 112 ?? 01/05/2024 ??16:37 ? AST 24 ?? 01/05/2024 ??16:37 ? ALT 36 ?? 01/05/2024 ??16:37 ? Trig 306 ??H?? 01/05/2024 ??16:37 ? aPTT 31.9 ??H?? 01/05/2024 ??16:37 ? PT 10.8 ?? 01/05/2024 ??16:37 ? INR 0.95 ?? 01/05/2024 ??16:37 ? Blood Glucose Trend Glucose Level:??121 mg/dL??High (01/05/24 16:37:00) ? CBC (Last Within 24hrs) WBC: 8.8 x10e3/mcL (16:37) Hgb: 15.4 gm/dL (16:37) Hct: 43.8 % (16:37) Plt: 288 x10e3/mcL (16:37) ?? BMP, Mg, and Phos (Last Within 24hrs) Sodium: 137 mmol/L (16:37) Potassium:??3.1 mmol/L??Low (16:37) Chloride: 103 mmol/L (16:37) CO2: 26 mmol/L (16:37) BUN: 16 mg/dL (16:37) Creatinine: 1.2 mg/dL (16:37) Glucose Level:??121 mg/dL??High (16:37) Calcium: 10 mg/dL (16:37) Mg Lvl: 2.3 mg/dL (16:37) ?? Coagulation Profile (Last Within 24hrs) INR: 0.95 (16:37) PT: 10.8 Seconds (16:37) ?? LFT (Last Within 24hrs) AST: 24 Intl_units/L (16:37) ALT: 36 Intl_units/L (16:37) Alk Phos: 112 Intl_units/L (16:37) T Bili: 0.9 mg/dL (16:37) TP: 7.8 gm/dL (16:37) Albumin. Level: 4.1 gm/dL (16:37) ? Cardiology Labs BNP: 78.7 pg/mL (01/05/24 16:37:00) Troponin TNIH:??287.1 ng/L??Critical (01/05/24 17:29:00) Troponin TNIH:??158.4 ng/L??Critical (01/05/24 16:37:00) Lipids: Cholesterol:??215 mg/dL??High (01/05/24 16:37:00) Trig:??306 mg/dL??High (01/05/24 16:37:00) HDL:??35 mg/dL??Low (01/05/24 16:37:00) LDL Direct: 138 mg/dL (01/05/24 16:37:00) LDL/HDL Ratio: 4 Ratio (01/05/24 16:37:00) ? Electronically Signed By: Marcelo Comer DO On: 01.05.2024 19:23 [employer] Progress note * Kavitha MODI, Margi Dennison: PERFORM Event Display: Progress Note-Physician Authored Date: [id number] Subjective ? Date of service:??2?? /?? Hospitalist progress note ?77/ M ??COPD, ORLIN on CPAP, diabetes mellitus, atrial fibrillation on chronic anticoagulation, hypertension, CAD, congestive heart failure with reduced ejection fraction to 20 to 35% ,ischemic cardiomyopathy underwent AICD placement for primary prevention of sudden . ?? Presents to Heart ER with chest pain following an appropriate AICD shock on interrogation ?WBC 8.8 hemoglobin 15.4.?? Hematocrit 43.8 platelet count 288 neutrophils 69.1 lymphocytes 18.4.?? PT 10.8.?? INR 0.95.?? PTT 31.9. Glucose 121 sodium 137 potassium 3.1 chloride 103 CO2 26 BUN 16 creatinine 1.3 ratio 13.33 calcium of 10 albumin of 4.1 total protein 7.8 total bilirubin 0.9 alkaline phosphatase 112 AST 24 ALT 36 magnesium 2.3 estimate creatinine clearance 40.29 estimated GFR 62.?? BNP 78.7.?? Troponin 158.4.?? Cholesterol nonfasting 215 triglycerides 306 HDL 35 LDL direct 138.?? TSH 3.53.?? Patient was afebrile temperature 98.2 heart rate 73-81 respiratory rate on initial entry at 30 subsequently at 18 blood pressure 127/74 O2 saturation 100% on room air.?? On entry 3 out of 10 chest pain in the lateral left chest region being sudden associated with shortness of breath ?? 24 Hr Interval Course Was placed on IV amiodarone overnight.?? Hemodynamically stable.?? This morning??comfortable. ??Notin distress. Per EPS no further intervention.?? Stop IV amiodarone infusion. ??Change to oral amiodarone. Observe overnight??and discharge in a.m. if clinically stable. ?? Chief Complaint/Reason for Consultation Chief Complaint: pacemaker malfunction ?? Past Medical History Active Problems(31) Aortic valve sclerosis Atrial fibrillation Bifascicular block BPH (benign prostatic hyperplasia) Bradycardia CAD (coronary artery disease) Cardiomyopathy Chest pain CHF (congestive heart failure) COPD (chronic obstructive pulmonary disease) Diabetes First degree AV block Former smoker History of sepsis HTN (hypertension) Hyperlipemia Ischemic cardiomyopathy Mitral valve regurgitation Myocardial infarct, old Nonischemic cardiomyopathy Obesity Pulmonary edema cardiac cause Right bundle branch block (RBBB) on electrocardiogram (ECG) Shortness of breath SSS (sick sinus syndrome) SVT (supraventricular tachycardia) Syncope Tachycardia Thyroid condition Tricuspid valve regurgitation Vertigo, benign positional ? Past Surgical History Insertion Defibrillator (Laterality NA): 02/19/23 TRINY: 01/04/23 Direct current cardioversion: 01/04/23 Cholecystectomy;: 2020 LHC: 08/14/19 LHC / PTCA: 11/06/13 Appendectomy;: 03/20/64 inguinal hernia repair ? Functional Assessments ? Objective Measurements (most recent)?? Height 172.72 cm?Melania Salazar RN ??01/05 16:22 Height (inches) 68.00 inch?SYSTEM ??01/05 16:22 Weight 91.17 kg?Melania Salazar RN ??01/05 16:22 Weight (lbs) 201.00 lb?SYSTEM ??01/05 16:22 Body Mass Index 30.56 kg/m2?Melania Salazar RN ??01/05 16:22 ? Vital Signs (24 hrs) Last Charted?? Minimum?? Maximum?? Temp?? L??36.3?? 01/06/2024 23:09?? L??36.3?? 01/06/2024 03:53 ?? L??36.3?? 01/06/2024 03:53?? Peripheral Pulse Rate?? 64?? 01/06/2024 23:09?? 63?? 01/06/2024 19:16 ?? 68?? 01/06/2024 03:53?? Resp Rate?? 18?? 01/06/2024 23:09?? 17?? 01/06/2024 03:53 ?? 18?? 01/06/2024 00:50?? SBP?? 107?? 01/06/2024 23:09?? 105?? 01/06/2024 10:55 ?? 127?? 01/06/2024 00:25?? DBP?? L??56?? 01/06/2024 23:09?? L??54?? 01/06/2024 10:55 ?? C??91?? 01/06/2024 00:25?? MAP?? 73?? 01/06/2024 23:09?? 71?? 01/06/2024 10:55 ?? 103?? 01/06/2024 00:25?? SpO2?? 98?? 01/06/2024 23:09?? 96?? 01/06/2024 03:53 ?? 98?? 01/06/2024 23:09?? O2 Therapy?? Room air?? Room air?? Room air ? I&O 24 Hour Total? 01/06 13:04 01/07 07:00 01/06 07:00 01/05 07:00 01/04 07:00 ?? 01/07 00:02 01/07 00:02 01/07 06:59 01/06 06:59 01/05 06:59 Intake ? 1443.4 ?0 ?792.0 ?651.5 ?0 Output ?0 ?0 ?0 ?0 ?0 Net Total ? 1443.4 ?0 ?792.0 ?651.5 ?0 Urine Count ?5 ?0 ?4 ?1 ?0 Stool Count ?1 ?0 ?1 ?0 ?0 ? Precautions No Precautions documented.? Mental Status Exam ? Basic ADLs ? Stroke Assessments Black Coma Scale Eye Opening Response Black: Spontaneously (01/06/24 20:00:00) Best Verbal Response Black: Oriented and converses (01/06/24 20:00:00) Best Motor Response Black: Obeys commands (01/06/24 20:00:00) Black Coma Score: 15 (01/06/24 20:00:00) ? Physical Exam General: Alert, in no acute cardiopulmonary distress. Mental Status: Oriented to person, place and time. Head: Normocephalic. Eyes: Pupils are equal, round and reactive to light. . Ear, Nose and Throat: Oropharynx clear, mucous membranes moist. Ears and nose without masses, lesions or deformities. . Trachea midline. Neck: Supple, Full range of motion. Respiratory: Clear to auscultation and percussion. No wheezing, rales or rhonchi. Cardiovascular: Defibrillator Heart sounds normal. No thrills. Regular rate and rhythm, no murmurs,rubs or gallops. Gastrointestinal: Abdomen soft, non-tender, non-distended. Normal bowel sounds. No pulsatile mass. No hepatosplenomegaly. Genitourinary: No costovertebral angle tenderness. Neurologic: . No focal neurological deficits. . Skin: No rashes or lesions. No petechiae or purpura. No edema. Musculoskeletal: No cyanosis or clubbing. No gross deformities. Normal range of motion. _ Inpatient Medications Medications (29) Active SCHEDULED: (24) amiodarone 200 mg Tab (amiodarone) ??200 mg 1 Tabs, Oral, Daily apixaban 5 mg Tab (apixaban) ??5 mg 1 Tabs, Oral, BID aspirin 81 mg Chew Tab (aspirin) ??81 mg 1 Tabs, Chewed, Daily atorvastatin 40 mg Tab (atorvastatin) ??40 mg 1 Tabs, Oral, qHS dapagliflozin 10 mg Tab (dapagliflozin) ??10 mg 1 Tabs, Oral, Daily ethanol topical (Nozin POPswab 62% topical swab) ??1 amp, Topical, BID finasteride 5 mg Tab (Proscar) ??5 mg 1 Tabs, Oral, Daily FLUoxetine 20 mg Cap (PROzac) ??20 mg 1 Caps, Oral, Daily furosemide 40 mg Tab (Lasix) ??40 mg 1 Tabs, Oral, Daily Hypoglycemia Protocol Advisor ??Protocol, N/A, Daily insulin regular, human REC 1 unit/ 0.01 mL (insulin regular Correctional scale Intermediate) ??3-13units, SubCutaneous, Before Meals and HS levothyroxine 25 mcg (0.025 mg) Tab (Synthroid) ??25 mcg 1 Tabs, Oral, Daily loratadine 10 mg Tab (loratadine) ??10 mg 1 Tabs, Oral, Daily metoprolol succinate 50 mg XL Tab (Metoprolol Succinate ER) ??50 mg 1 Tabs, Oral, qHS nitroglycerin 2% Top Oint 1 gm (Nitro-Bid) ??1 inch, Topical, q6H pantoprazole 20 mg Oral EC Tab (Protonix) ??20 mg 1 Tabs, Oral, Daily Protocol (Magnesium Oxide - Oral.) ??Protocol, N/A, q72H Interval Protocol (Magnesium Sulfate - IV.) ??Protocol, N/A, q72H Interval Protocol (Sodium Phosphate - Oral.) ??Protocol, N/A, q72H Interval Protocol (Sodium Phosphate - IV.) ??Protocol, N/A, q72H Interval Protocol (Potassium Chloride - Oral & IV.) ??Protocol, N/A, q72H Interval rOPINIRole 0.25 mg Tab (rOPINIRole) ??0.5 mg 2 Tabs, Oral, TID spironolactone 25 mg Tab (spironolactone) ??25 mg 1 Tabs, Oral, Daily tamsulosin 0.4 mg SA Cap (tamsulosin) ??0.4 mg 1 Caps, Oral, BID CONTINUOUS: (1) amiodarone/D5W 360 mg [0.5 mg/min] + Premix D5W 200 mL (amiodarone IV additive 360 mg [0.5 mg/min] + Premix D5W 200 mL) ??200 mL, IV, 16.67 mL/hr PRN: (4) acetaminophen 325 mg Tab (Tylenol) ??650 mg 2 Tabs, Oral, q4H ALPRAZolam 0.25 mg Tab (ALPRAZolam) ??0.25 mg 1 Tabs, Oral, q12H Interval ondansetron 4 mg/2 mL vial (Zofran) ??4 mg 2 mL, IV Push, q15Min Interval ondansetron 4 mg/2 mL vial (Zofran) ??4 mg 2 mL, IV Push, q6H ? IV Titrations (Last 24 hrs) Most Recent Infusions (Max of 3)? 01/06 12:00 01/06 11:00 01/06 10:00 amiodarone IV additive 360 mg [0.5 mg/min] + Premix D5W 200 mL 0.5001 mg/min 0.5001 mg/min 0.5001 mg/min ? 72 hour Antibiotic History No qualifying data available... ? Durable Medical Equipment ? Results Recent Labs Cardiac BNP 143.0 pg/mL (High)?? 01/06/2024 11:16 ?? General Chemistry Glucose Level 141 mg/dL (High)?? 01/06/2024 11:16 POC Glucose 194 mg/dL (High)?? 01/06/2024 20:39 Sodium 134 mmol/L (Low)?? 01/06/2024 11:16 Potassium 4.6 mmol/L (Normal)?? 01/06/2024 11:16 Chloride 101 mmol/L (Normal)?? 01/06/2024 11:16 CO2 27 mmol/L (Normal)?? 01/06/2024 11:16 Anion Gap 6 mmol/L (Normal)?? 01/06/2024 11:16 BUN 23 mg/dL (High)?? 01/06/2024 11:16 Creatinine 1.3 mg/dL (Normal)?? 01/06/2024 11:16 BUN/Creat Ratio 17.69 Ratio (Normal)?? 01/06/2024 11:16 Calcium 9.5 mg/dL (Normal)?? 01/06/2024 11:16 Mg Lvl 2.2 mg/dL (Normal)?? 01/06/2024 11:16 Phosphorus 1.6 mg/dL (Low)?? 01/06/2024 11:16 Estimated Creatinine Clearance 44.58 mL/min ()?? 01/06/2024 11:38 eGFR Cr 56 mL/min/1.73m2 (N/A)?? 01/06/2024 11:16 eGFR Pediatric Not Reported mL/min/1.73m2 (N/A)?? 01/06/2024 11:16 MAR Glucose Result 165 ()?? 01/06/2024 16:40 ? Abnormal Labs ?? Cardiac BNP?143.0 pg/mL (High)?01/06/2024 11:16 ?? General Chemistry BUN?23 mg/dL (High)?01/06/2024 11:16 Glucose Level?141 mg/dL (High)?01/06/2024 11:16 POC Glucose?194 mg/dL (High)?01/06/2024 20:39 Phosphorus?1.6 mg/dL (Low)?01/06/2024 11:16 Sodium?134 mmol/L (Low)?01/06/2024 11:16 ?? Note: Critical results are displayed in red. ? CBC, BMP, Coagulation Trend (last 4 resulted) WBC 8.80 ?? 01/05/2024 ??16:37 ? Hgb 15.40 ?? 01/05/2024 ??16:37 ? Hct 43.80 ?? 01/05/2024 ??16:37 ? Baso # Auto 0.1 ?? 01/05/2024 ??16:37 ? Baso % Auto 0.9 ?? 01/05/2024 ??16:37 ? Eos # Auto 0.1 ?? 01/05/2024 ??16:37 ? Eos % Auto 0.8 ?? 01/05/2024 ??16:37 ? Lymph # Auto 1.6 ?? 01/05/2024 ??16:37 ? Lymph % Auto 18.4 ??L?? 01/05/2024 ??16:37 ? Island # Auto 1.0 ?? 01/05/2024 ??16:37 ? Island % Auto 10.8 ?? 01/05/2024 ??16:37 ? Neut # Auto 6.1 ?? 01/05/2024 ??16:37 ? Neut % Auto 69.1 ?? 01/05/2024 ??16:37 ? Plt 288 ?? 01/05/2024 ??16:37 ? Glucose Level 141 ??H?? 01/06/2024 ??11:16 121 ??H?? 01/05/2024 ??16:37 ? Sodium 134 ??L?? 01/06/2024 ??11:16 137 ?? 01/05/2024 ??16:37 ? Potassium 4.6 ?? 01/06/2024 ??11:16 3.6 ?? 01/05/2024 ??19:54 3.1 ??L?? 01/05/2024 ??16:37 ?? Chloride 101 ?? 01/06/2024 ??11:16 103 ?? 01/05/2024 ??16:37 ? CO2 27 ?? 01/06/2024 ??11:16 26 ?? 01/05/2024 ??16:37 ? BUN 23 ??H?? 01/06/2024 ??11:16 16 ?? 01/05/2024 ??16:37 ? Creatinine 1.3 ?? 01/06/2024 ??11:16 1.2 ?? 01/05/2024 ??16:37 ? BUN/Creat Ratio 17.69 ?? 01/06/2024 ??11:16 13.33 ?? 01/05/2024 ??16:37 ? Mg Lvl 2.2 ?? 01/06/2024 ??11:16 2.3 ?? 01/05/2024 ??16:37 ? Phosphorus 1.6 ??L?? 01/06/2024 ??11:16 ? Calcium 9.5 ?? 01/06/2024 ??11:16 10.0 ?? 01/05/2024 ??16:37 ? Albumin. Level 4.1 ?? 01/05/2024 ??16:37 ? T Bili 0.90 ?? 01/05/2024 ??16:37 ? Alk Phos 112 ?? 01/05/2024 ??16:37 ? AST 24 ?? 01/05/2024 ??16:37 ? ALT 36 ?? 01/05/2024 ??16:37 ? Trig 306 ??H?? 01/05/2024 ??16:37 ? aPTT 31.9 ??H?? 01/05/2024 ??16:37 ? PT 10.8 ?? 01/05/2024 ??16:37 ? INR 0.95 ?? 01/05/2024 ??16:37 ? Blood Glucose Trend Glucose Level:??141 mg/dL??High (01/06/24 11:16:00) POC Glucose:??194 mg/dL??High (01/06/24 20:39:00) POC Glucose:??165 mg/dL??High (01/06/24 16:32:00) POC Glucose:??124 mg/dL??High (01/06/24 10:56:00) POC Glucose:??191 mg/dL??High (01/06/24 05:35:00) ? BMP, Mg, and Phos (Last Within 24hrs) Sodium:??134 mmol/L??Low (11:16) Potassium: 4.6 mmol/L (11:16) Chloride: 101 mmol/L (11:16) CO2: 27 mmol/L (11:16) BUN:??23 mg/dL??High (11:16) Creatinine: 1.3 mg/dL (11:16) Glucose Level:??141 mg/dL??High (11:16) Calcium: 9.5 mg/dL (11:16) Mg Lvl: 2.2 mg/dL (11:16) Phosphorus:??1.6 mg/dL??Low (11:16) ? Cardiology Labs BNP:??143 pg/mL??High (01/06/24 11:16:00) BNP: 78.7 pg/mL (01/05/24 16:37:00) Troponin TNIH:??324.1 ng/L??Critical (01/05/24 19:54:00) Troponin TNIH:??287.1 ng/L??Critical (01/05/24 17:29:00) Troponin TNIH:??158.4 ng/L??Critical (01/05/24 16:37:00) Lipids: Cholesterol:??215 mg/dL??High (01/05/24 16:37:00) Trig:??306 mg/dL??High (01/05/24 16:37:00) HDL:??35 mg/dL??Low (01/05/24 16:37:00) LDL Direct: 138 mg/dL (01/05/24 16:37:00) LDL/HDL Ratio: 4 Ratio (01/05/24 16:37:00) ? Assessment/Plan Diagnoses Acute hypokalemia ??(E87.6) Atrial fibrillation ??(I48.91) CKD (chronic kidney disease), stage III ??(N18.30) COPD mixed type ??(J44.9) Class 1 obesity ??(E66.9) Defibrillator discharge ??(Z45.02) Diabetes mellitus ??(E11.9) Ischemic cardiomyopathy ??(I25.5) Mixed hyperlipidemia due to type 2 diabetes mellitus ??(E11.69) On continuous oral anticoagulation ??(Z79.01) Type 2 WA (myocardial infarction) ??(I21.A1) 1. ??Sustained VT (ventricular tachycardia) ??(I47.20) ?Plan: Inpatient ?? Telemetry monitoring. Aggressive??replacement of??electrolytes. Replace to high normal levels. Oxygen supplementation as indicated. Completed??device interrogation. Cardiology consultation. Hold metformin Continue empagliflozin Insulin sliding scale Cardiac diabetic diet Avoid??nephrotoxic drugs GI prophylaxis Continue oral anticoagulation Continue??all previous medications Supportive treatment ??amiodarone 200 mg Tab (amiodarone) ??200 mg 1 Tabs, Oral, Daily apixaban 5 mg Tab (apixaban) ??5 mg 1 Tabs, Oral, BID aspirin 81 mg Chew Tab (aspirin) ??81 mg 1 Tabs, Chewed, Daily atorvastatin 40 mg Tab (atorvastatin) ??40 mg 1 Tabs, Oral, qHS dapagliflozin 10 mg Tab (dapagliflozin) ??10 mg 1 Tabs, Oral, Daily ethanol topical (Nozin POPswab 62% topical swab) ??1 amp, Topical, BID finasteride 5 mg Tab (Proscar) ??5 mg 1 Tabs, Oral, Daily FLUoxetine 20 mg Cap (PROzac) ??20 mg 1 Caps, Oral, Daily furosemide 40 mg Tab (Lasix) ??40 mg 1 Tabs, Oral, Daily Hypoglycemia Protocol Advisor ??Protocol, N/A, Daily insulin regular, human REC 1 unit/ 0.01 mL (insulin regular Correctional scale Intermediate) ??3-13units, SubCutaneous, Before Meals and HS levothyroxine 25 mcg (0.025 mg) Tab (Synthroid) ??25 mcg 1 Tabs, Oral, Daily loratadine 10 mg Tab (loratadine) ??10 mg 1 Tabs, Oral, Daily metoprolol succinate 50 mg XL Tab (Metoprolol Succinate ER) ??50 mg 1 Tabs, Oral, qHS nitroglycerin 2% Top Oint 1 gm (Nitro-Bid) ??1 inch, Topical, q6H pantoprazole 20 mg Oral EC Tab (Protonix) ??20 mg 1 Tabs, Oral, Daily Protocol (Magnesium Oxide - Oral.) ??Protocol, N/A, q72H Interval Protocol (Magnesium Sulfate - IV.) ??Protocol, N/A, q72H Interval Protocol (Sodium Phosphate - Oral.) ??Protocol, N/A, q72H Interval Protocol (Sodium Phosphate - IV.) ??Protocol, N/A, q72H Interval Protocol (Potassium Chloride - Oral & IV.) ??Protocol, N/A, q72H Interval rOPINIRole 0.25 mg Tab (rOPINIRole) ??0.5 mg 2 Tabs, Oral, TID spironolactone 25 mg Tab (spironolactone) ??25 mg 1 Tabs, Oral, Daily tamsulosin 0.4 mg SA Cap (tamsulosin) ??0.4 mg 1 Caps, Oral, BID ?? Condition serious Prognosis guarded ?? Further as per clinical evolution ?? Disposition Home with family care when clinically stable and cleared by cardiology team?? Discharge Planning:??Home in am ?? Discharge Planning:?Discharge Planning:?Discharge To, Anticipated:??Home with family care ? Electronically Signed By: Margi Plummer MD On: 01.07.2024 00:25 BUFFER MACHINE * Bernie Poole: PERFORM, MODIFY Event Display: Progress Note-Physician Authored Date: [id number] Subjective Reason for follow-up: ICD discharge Primary yard caller: Dr. Yanes ?? 78-year-old male past medical history of?? COPD, ORLIN on CPAP, diabetes mellitus, atrial fibrillation on chronic anticoagulation, hypertension, CAD, congestive heart failure with reduced ejection fraction to 30 to 35% ,previously underwent AICD placement for primary prevention of sudden presents with ICD discharge. ?? Doing well.?? No dizziness or lightheadedness, no palpitations or chest pain. BP well-controlled Room air Sodium 134, potassium 4.6, creatinine 1.3, BUN 23, magnesium 2.2 Sinus rhythm on telemetry ?? Review of systems: Constitutional: No weight loss, fever, chills, weakness or fatigue. HEENT: No visual loss, blurred vision, double vision or yellow sclera. No hearing loss, sneezing, congestion, runny nose or sore throat. Skin: No rash or itching. Cardiovascular: Per HPI Respiratory: Per HPI Gastrointestinal: No anorexia, nausea, vomiting or diarrhea. [...] or heat intolerance. No polyuria or polydipsia. Chief Complaint/Reason for Consultation Chief Complaint: pacemaker malfunction ?? Allergies Allergies ?(Active and Proposed Allergies Only) codeine? (Severity: Unknown severity, Onset: Unknown) ?Reactions: hives penicillin? (Severity: Unknown severity, Onset: Unknown) ?Reactions: hives ? Past Medical History Active Problems(31) Aortic valve sclerosis Atrial fibrillation Bifascicular block BPH (benign prostatic hyperplasia) Bradycardia CAD (coronary artery disease) Cardiomyopathy Chest pain CHF (congestive heart failure) COPD (chronic obstructive pulmonary disease) Diabetes First degree AV block Former smoker History of sepsis HTN (hypertension) Hyperlipemia Ischemic cardiomyopathy Mitral valve regurgitation Myocardial infarct, old Nonischemic cardiomyopathy Obesity Pulmonary edema cardiac cause Right bundle branch block (RBBB) on electrocardiogram (ECG) Shortness of breath SSS (sick sinus syndrome) SVT (supraventricular tachycardia) Syncope Tachycardia Thyroid condition Tricuspid valve regurgitation Vertigo, benign positional ? Past Surgical History Insertion Defibrillator (Laterality NA): 02/19/23 TRINY: 01/04/23 Direct current cardioversion: 01/04/23 Cholecystectomy;: 2020 LHC: 08/14/19 LHC / PTCA: 11/06/13 Appendectomy;: 03/20/64 inguinal hernia repair ? Social History Alcohol Details:??Current, 1-2 times per year Substance Abuse Details:??Denies Tobacco Details:??Denies ? Family History No Family History documented. ? Objective Measurements (most recent)?? Height 172.72 cm?Melnaia Salazar RN ??01/05 16:22 Height (inches) 68.00 inch?SYSTEM ??01/05 16:22 Weight 91.17 kg?Melania Salazar RN ??01/05 16:22 Weight (lbs) 201.00 lb?SYSTEM ??01/05 16:22 Body Mass Index 30.56 kg/m2?Melania Salazar RN ??01/05 16:22 ? Vital Signs (24 hrs) Last Charted?? Minimum?? Maximum?? Temp?? L??36.4?? 01/06/2024 10:55?? 36.8?? 01/05/2024 16:29 ?? 36.8?? 01/05/2024 16:29?? Apical Heart Rate?? 81?? 01/05/2024 16:29?? 81?? 01/05/2024 16:29 ?? 81?? 01/05/2024 16:29?? Resp Rate?? 18?? 01/06/2024 10:55?? 16?? 01/05/2024 19:00 ?? C??30?? 01/05/2024 16:29?? SBP?? 105?? 01/06/2024 10:55?? 105?? 01/06/2024 10:55 ?? H??152?? 01/05/2024 18:00?? DBP?? L??54?? 01/06/2024 10:55?? L??54?? 01/06/2024 10:55 ?? C??99?? 01/05/2024 18:00?? MAP?? 71?? 01/06/2024 10:55?? 71?? 01/06/2024 10:55 ?? 118?? 01/05/2024 18:00?? SpO2?? 97?? 01/06/2024 10:55?? 96?? 01/05/2024 23:00 ?? 100?? 01/05/2024 16:29?? O2 Therapy?? Room air?? Room air? Pain Scores (Last Within 24hrs) Numeric Pain Scale: 0 = No pain (12:00) ? Assisted Ventilation Settings (Last Within 24hrs)?? FIO2: 21 % (16:50) ?? I&O 24 Hour Total? 01/06 13:04 01/06 07:00 01/05 07:00 01/04 07:00 01/03 07:00 ?? 01/06 16:13 01/06 16:13 01/06 06:59 01/05 06:59 01/04 06:59 Intake ? 1151.5 ?500 ?651.5 ?0 ?0 Output ?0 ?0 ?0 ?0 ?0 Net Total ? 1151.5 ?500 ?651.5 ?0 ?0 Urine Count ?3 ?2 ?1 ?0 ?0 ? Last Charted?? Daily/Dosing Weight(kg) Gross Change?? 01/05/2024 16:22?91.17? ---? Physical Exam General: Alert, in no acute cardiopulmonary distress.?? Elderly obese?? male Mental Status: Oriented to person, place and time. Normal affect. Head: Normocephalic. Eyes:?? Extraocular muscles intact. Ear, Nose and Throat: Oropharynx clear, mucous membranes moist.?? Trachea midline. Neck: Supple, Full range of motion.?? No JVD noted Respiratory: Clear to auscultation and percussion. No wheezing, rales or rhonchi. Cardiovascular: Heart sounds normal. No thrills. Regular rate and rhythm, no murmurs, rubs or gallops. Gastrointestinal: Abdomen soft, non-tender, non-distended. Normal bowel sounds. Genitourinary: No costovertebral angle tenderness. Neurologic: No focal neurological deficits. Moves all extremities spontaneously. Skin: No rashes or lesions. No petechiae or purpura. No edema. Musculoskeletal: No cyanosis or clubbing. No gross deformities. Normal range of motion. Lymphatics: Palpation of neck reveals no swelling or tenderness of neck nodes. Palpation of groin reveals no swelling or tenderness of groin nodes. _ Home Medications amiodarone (amiodarone 100 mg oral tablet)?200?Milligram?2?Tabs?By Mouth?Daily apixaban (apixaban 5 mg oral tablet)?5?Milligram?1?Tabs?By Mouth?2 Times a Day ascorbic acid (ascorbic acid 500 mg oral tablet)?500?Milligram?1?Tabs?By Mouth?Daily aspirin (aspirin 81 mg oral tablet, chewable)?81?Milligram?1?Tabs?Chewed?Daily atorvastatin (atorvastatin 40 mg oral tablet)?40?Milligram?1?Tabs?By Mouth?at Bedtime cholecalciferol (cholecalciferol 25 mcg (1000 intl units) oral capsule)?25?Microgram?1?Capsules?By Mouth?Daily empagliflozin (Jardiance 25 mg oral tablet)?0.5 ??TAB?By Mouth?Every AM finasteride (Proscar 5 mg oral tablet)?5?Milligram?1?Tabs?By Mouth?Daily FLUoxetine (PROzac 20 mg oral capsule)?20?Milligram?1?Capsules?By Mouth?Daily furosemide (Lasix 40 mg oral tablet)?80?Milligram?2?Tabs?By Mouth?Every AM furosemide (Lasix 40 mg oral tablet)?40?Milligram?1?Tabs?By Mouth?After Lunch lactobacillus acidophilus (lactobacillus acidophilus oral capsule)?1?Capsules?By Mouth?Daily levothyroxine (Synthroid 25 mcg (0.025 mg) oral tablet)?25?Microgram?1?Tabs?By Mouth?Daily loratadine (loratadine 10 mg oral tablet)?10?Milligram?1?Tabs?By Mouth?Daily metoprolol (Metoprolol Succinate ER 50 mg oral tablet, extended release)?50?Milligram?1?Tabs?By Mouth?at Bedtime nitroglycerin (nitroglycerin 0.4 mg sublingual tablet)?0.4?Milligram?1?Tabs?Sublingual?Now and Every 5 minutes?as needed?as needed for chest pain?not to exceed 3 doses/15 mi n--if pain persists, seek medical attention pantoprazole (Protonix 20 mg oral enteric coated tablet)?20?Milligram?1?Tabs?By Mouth?Daily rOPINIRole (rOPINIRole 0.5 mg oral tablet)?0.5?Milligram?1?Tabs?By Mouth?3 Times a Day sacubitril-valsartan (sacubitril-valsartan 24 mg-26 mg oral tablet)?See Instructions?0.5 TabsOral BID spironolactone (spironolactone 25 mg oral tablet)?25?Milligram?1?Tabs?By Mouth?Daily tamsulosin (tamsulosin 0.4 mg oral capsule)?0.4?Milligram?1?Capsules?By Mouth?2 Times a Day ? Inpatient Medications Medications (29) Active SCHEDULED: (24) amiodarone 200 mg Tab (amiodarone) ??200 mg 1 Tabs, Oral, Daily apixaban 5 mg Tab (apixaban) ??5 mg 1 Tabs, Oral, BID aspirin 81 mg Chew Tab (aspirin) ??81 mg 1 Tabs, Chewed, Daily atorvastatin 40 mg Tab (atorvastatin) ??40 mg 1 Tabs, Oral, qHS ethanol topical (Nozin POPswab 62% topical swab) ??1 amp, Topical, BID finasteride 5 mg Tab (Proscar) ??5 mg 1 Tabs, Oral, Daily FLUoxetine 20 mg Cap (PROzac) ??20 mg 1 Caps, Oral, Daily furosemide 40 mg Tab (Lasix) ??40 mg 1 Tabs, Oral, Daily Hypoglycemia Protocol Advisor ??Protocol, N/A, Daily insulin regular, human REC 1 unit/ 0.01 mL (insulin regular Correctional scale Intermediate) ??3-13units, SubCutaneous, Before Meals and HS levothyroxine 25 mcg (0.025 mg) Tab (Synthroid) ??25 mcg 1 Tabs, Oral, Daily loratadine 10 mg Tab (loratadine) ??10 mg 1 Tabs, Oral, Daily metoprolol succinate 50 mg XL Tab (Metoprolol Succinate ER) ??50 mg 1 Tabs, Oral, qHS Nitro Ointment Removal ??1 inch, Topical, Once nitroglycerin 2% Top Oint 1 gm (Nitro-Bid) ??1 inch, Topical, q6H pantoprazole 20 mg Oral EC Tab (Protonix) ??20 mg 1 Tabs, Oral, Daily Protocol (Magnesium Oxide - Oral.) ??Protocol, N/A, q72H Interval Protocol (Magnesium Sulfate - IV.) ??Protocol, N/A, q72H Interval Protocol (Sodium Phosphate - Oral.) ??Protocol, N/A, q72H Interval Protocol (Sodium Phosphate - IV.) ??Protocol, N/A, q72H Interval Protocol (Potassium Chloride - Oral & IV.) ??Protocol, N/A, q72H Interval rOPINIRole 0.25 mg Tab (rOPINIRole) ??0.5 mg 2 Tabs, Oral, TID spironolactone 25 mg Tab (spironolactone) ??25 mg 1 Tabs, Oral, Daily tamsulosin 0.4 mg SA Cap (tamsulosin) ??0.4 mg 1 Caps, Oral, BID CONTINUOUS: (1) amiodarone/D5W 360 mg [0.5 mg/min] + Premix D5W 200 mL (amiodarone IV additive 360 mg [0.5 mg/min] + Premix D5W 200 mL) ??200 mL, IV, 16.67 mL/hr PRN: (4) acetaminophen 325 mg Tab (Tylenol) ??650 mg 2 Tabs, Oral, q4H ALPRAZolam 0.25 mg Tab (ALPRAZolam) ??0.25 mg 1 Tabs, Oral, q12H Interval ondansetron 4 mg/2 mL vial (Zofran) ??4 mg 2 mL, IV Push, q15Min Interval ondansetron 4 mg/2 mL vial (Zofran) ??4 mg 2 mL, IV Push, q6H ? 72 hour Antibiotic History No qualifying data available... ?? Results Recent Labs Cardiac BNP 143.0 pg/mL (High)?? 01/06/2024 11:16 Troponin TNIH 324.1 ng/L (Critical)?? 01/05/2024 19:54 ?? General Chemistry Glucose Level 141 mg/dL (High)?? 01/06/2024 11:16 POC Glucose 124 mg/dL (High)?? 01/06/2024 10:56 Sodium 134 mmol/L (Low)?? 01/06/2024 11:16 Potassium 4.6 mmol/L (Normal)?? 01/06/2024 11:16 Chloride 101 mmol/L (Normal)?? 01/06/2024 11:16 CO2 27 mmol/L (Normal)?? 01/06/2024 11:16 Anion Gap 6 mmol/L (Normal)?? 01/06/2024 11:16 BUN 23 mg/dL (High)?? 01/06/2024 11:16 Creatinine 1.3 mg/dL (Normal)?? 01/06/2024 11:16 BUN/Creat Ratio 17.69 Ratio (Normal)?? 01/06/2024 11:16 Calcium 9.5 mg/dL (Normal)?? 01/06/2024 11:16 Albumin. Level 4.1 gm/dL (Normal)?? 01/05/2024 16:37 TP 7.8 gm/dL (Normal)?? 01/05/2024 16:37 T Bili 0.90 mg/dL (Normal)?? 01/05/2024 16:37 Alk Phos 112 Intl_units/L (Normal)?? 01/05/2024 16:37 AST 24 Intl_units/L (Normal)?? 01/05/2024 16:37 ALT 36 Intl_units/L (Normal)?? 01/05/2024 16:37 Mg Lvl 2.2 mg/dL (Normal)?? 01/06/2024 11:16 Phosphorus 1.6 mg/dL (Low)?? 01/06/2024 11:16 Estimated Creatinine Clearance 44.58 mL/min ()?? 01/06/2024 11:38 eGFR Cr 56 mL/min/1.73m2 (N/A)?? 01/06/2024 11:16 eGFR Pediatric Not Reported mL/min/1.73m2 (N/A)?? 01/06/2024 11:16 MAR Glucose Result 124 ()?? 01/06/2024 11:46 ?? General Coagulation PT 10.8 Seconds (Normal)?? 01/05/2024 16:37 INR 0.95 (Normal)?? 01/05/2024 16:37 aPTT 31.9 Seconds (High)?? 01/05/2024 16:37 ?? General Hematology WBC 8.80 x10e3/mcL (Normal)?? 01/05/2024 16:37 RBC 4.43 x10e6/mcL (Low)?? 01/05/2024 16:37 Hgb 15.40 gm/dL (Normal)?? 01/05/2024 16:37 Hct 43.80 % (Normal)?? 01/05/2024 16:37 MCV 98.9 Femtoliters (Normal)?? 01/05/2024 16:37 MCH 34.70 pg (High)?? 01/05/2024 16:37 MCHC 35.10 gm/dL (Normal)?? 01/05/2024 16:37 RDW-SD 47.70 Femtoliters (High)?? 01/05/2024 16:37 RDW-CV 13.50 % (Normal)?? 01/05/2024 16:37 Plt 288 x10e3/mcL (Normal)?? 01/05/2024 16:37 MPV 7.70 Femtoliters (Normal)?? 01/05/2024 16:37 Neut % Auto 69.1 % (Normal)?? 01/05/2024 16:37 Lymph % Auto 18.4 % (Low)?? 01/05/2024 16:37 Island % Auto 10.8 % (Normal)?? 01/05/2024 16:37 Eos % Auto 0.8 % (Normal)?? 01/05/2024 16:37 Baso % Auto 0.9 % (Normal)?? 01/05/2024 16:37 Neut # Auto 6.1 x10e3/mcL (Normal)?? 01/05/2024 16:37 Lymph # Auto 1.6 x10e3/mcL (Normal)?? 01/05/2024 16:37 Island # Auto 1.0 x10e3/mcL (Normal)?? 01/05/2024 16:37 Eos # Auto 0.1 x10e3/mcL (Normal)?? 01/05/2024 16:37 Baso # Auto 0.1 x10e3/mcL (Normal)?? 01/05/2024 16:37 ?? Lipids Cholesterol 215 mg/dL (High)?? 01/05/2024 16:37 Trig 306 mg/dL (High)?? 01/05/2024 16:37 HDL 35 mg/dL (Low)?? 01/05/2024 16:37 LDL Direct 138 mg/dL (N/A)?? 01/05/2024 16:37 LDL/HDL Ratio 4 Ratio (Normal)?? 01/05/2024 16:37 ?? Thyroid T3 Uptake 33.00 % (Normal)?? 01/05/2024 16:37 Total Thyroxine (T4) 11.60 mcg/dL (Normal)?? 01/05/2024 16:37 TSH 3.530 mc Intl units/mL (Normal)?? 01/05/2024 16:37 ? Abnormal Labs ?? Cardiac BNP?143.0 pg/mL (High)?01/06/2024 11:16 Troponin TNIH?324.1 ng/L (Critical)?01/05/2024 19:54 ?? General Chemistry BUN?23 mg/dL (High)?01/06/2024 11:16 Glucose Level?141 mg/dL (High)?01/06/2024 11:16 Lymph % Auto?18.4 % (Low)?01/05/2024 16:37 MCH?34.70 pg (High)?01/05/2024 16:37 POC Glucose?124 mg/dL (High)?01/06/2024 10:56 Phosphorus?1.6 mg/dL (Low)?01/06/2024 11:16 RBC?4.43 x10e6/mcL (Low)?01/05/2024 16:37 RDW-SD?47.70 Femtoliters (High)?01/05/2024 16:37 Sodium?134 mmol/L (Low)?01/06/2024 11:16 aPTT?31.9 Seconds (High)?01/05/2024 16:37 ?? Lipids Cholesterol?215 mg/dL (High)?01/05/2024 16:37 HDL?35 mg/dL (Low)?01/05/2024 16:37 Trig?306 mg/dL (High)?01/05/2024 16:37 ?? Note: Critical results are displayed in red. ? CBC, BMP, Coagulation Trend (last 4 resulted) WBC 8.80 ?? 01/05/2024 ??16:37 ? Hgb 15.40 ?? 01/05/2024 ??16:37 ? Hct 43.80 ?? 01/05/2024 ??16:37 ? Baso # Auto 0.1 ?? 01/05/2024 ??16:37 ? Baso % Auto 0.9 ?? 01/05/2024 ??16:37 ? Eos # Auto 0.1 ?? 01/05/2024 ??16:37 ? Eos % Auto 0.8 ?? 01/05/2024 ??16:37 ? Lymph # Auto 1.6 ?? 01/05/2024 ??16:37 ? Lymph % Auto 18.4 ??L?? 01/05/2024 ??16:37 ? Island # Auto 1.0 ?? 01/05/2024 ??16:37 ? Island % Auto 10.8 ?? 01/05/2024 ??16:37 ? Neut # Auto 6.1 ?? 01/05/2024 ??16:37 ? Neut % Auto 69.1 ?? 01/05/2024 ??16:37 ? Plt 288 ?? 01/05/2024 ??16:37 ? Glucose Level 141 ??H?? 01/06/2024 ??11:16 121 ??H?? 01/05/2024 ??16:37 ? Sodium 134 ??L?? 01/06/2024 ??11:16 137 ?? 01/05/2024 ??16:37 ? Potassium 4.6 ?? 01/06/2024 ??11:16 3.6 ?? 01/05/2024 ??19:54 3.1 ??L?? 01/05/2024 ??16:37 ?? Chloride 101 ?? 01/06/2024 ??11:16 103 ?? 01/05/2024 ??16:37 ? CO2 27 ?? 01/06/2024 ??11:16 26 ?? 01/05/2024 ??16:37 ? BUN 23 ??H?? 01/06/2024 ??11:16 16 ?? 01/05/2024 ??16:37 ? Creatinine 1.3 ?? 01/06/2024 ??11:16 1.2 ?? 01/05/2024 ??16:37 ? BUN/Creat Ratio 17.69 ?? 01/06/2024 ??11:16 13.33 ?? 01/05/2024 ??16:37 ? Mg Lvl 2.2 ?? 01/06/2024 ??11:16 2.3 ?? 01/05/2024 ??16:37 ? Phosphorus 1.6 ??L?? 01/06/2024 ??11:16 ? Calcium 9.5 ?? 01/06/2024 ??11:16 10.0 ?? 01/05/2024 ??16:37 ? Albumin. Level 4.1 ?? 01/05/2024 ??16:37 ? T Bili 0.90 ?? 01/05/2024 ??16:37 ? Alk Phos 112 ?? 01/05/2024 ??16:37 ? AST 24 ?? 01/05/2024 ??16:37 ? ALT 36 ?? 01/05/2024 ??16:37 ? Trig 306 ??H?? 01/05/2024 ??16:37 ? aPTT 31.9 ??H?? 01/05/2024 ??16:37 ? PT 10.8 ?? 01/05/2024 ??16:37 ? INR 0.95 ?? 01/05/2024 ??16:37 ? CBC (Last Within 24hrs) WBC: 8.8 x10e3/mcL (16:37) Hgb: 15.4 gm/dL (16:37) Hct: 43.8 % (16:37) Plt: 288 x10e3/mcL (16:37) ?? Differential (Last Within 24hrs)?? - Automated -?? Neut % Auto: 69.1 % (16:37) Lymph % Auto:??18.4 %??Low (16:37) Island % Auto: 10.8 % (16:37) Eos % Auto: 0.8 % (16:37) Baso % Auto: 0.9 % (16:37) Neut # Auto: 6.1 x10e3/mcL (16:37) Lymph # Auto: 1.6 x10e3/mcL (16:37) Island # Auto: 1 x10e3/mcL (16:37) Eos # Auto: 0.1 x10e3/mcL (16:37) Baso # Auto: 0.1 x10e3/mcL (16:37) ? BMP, Mg, and Phos (Last Within 24hrs) Sodium:??134 mmol/L??Low (11:16) Potassium: 4.6 mmol/L (11:16) Chloride: 101 mmol/L (11:16) CO2: 27 mmol/L (11:16) BUN:??23 mg/dL??High (11:16) Creatinine: 1.3 mg/dL (11:16) Glucose Level:??141 mg/dL??High (11:16) Calcium: 9.5 mg/dL (11:16) Mg Lvl: 2.2 mg/dL (11:16) Phosphorus:??1.6 mg/dL??Low (11:16) ?? Coagulation Profile (Last Within 24hrs) INR: 0.95 (16:37) PT: 10.8 Seconds (16:37) ?? Cardiology Labs BNP:??143 pg/mL??High (01/06/24 11:16:00) BNP: 78.7 pg/mL (01/05/24 16:37:00) Troponin TNIH:??324.1 ng/L??Critical (01/05/24 19:54:00) Troponin TNIH:??287.1 ng/L??Critical (01/05/24 17:29:00) Troponin TNIH:??158.4 ng/L??Critical (01/05/24 16:37:00) Lipids: Cholesterol:??215 mg/dL??High (01/05/24 16:37:00) Trig:??306 mg/dL??High (01/05/24 16:37:00) HDL:??35 mg/dL??Low (01/05/24 16:37:00) LDL Direct: 138 mg/dL (01/05/24 16:37:00) LDL/HDL Ratio: 4 Ratio (01/05/24 16:37:00) ? Assessment/Plan Diagnoses Acute hypokalemia ??(E87.6) Atrial fibrillation ??(I48.91) CKD (chronic kidney disease), stage III ??(N18.30) COPD mixed type ??(J44.9) Class 1 obesity ??(E66.9) Defibrillator discharge ??(Z45.02) Diabetes mellitus ??(E11.9) Ischemic cardiomyopathy ??(I25.5) Mixed hyperlipidemia due to type 2 diabetes mellitus ??(E11.69) On continuous oral anticoagulation ??(Z79.01) Type 2 WA (myocardial infarction) ??(I21.A1) 1. ??Sustained VT (ventricular tachycardia) ??(I47.20) ? Defibrillator discharge (Z45.02):?? Interrogation appears to be suspicious for atrial tachycardia??resulting in rapid ventricular rates, subsequent ATPs??and thereafter??device shock Recommend to consult electrophysiology??to optimize programming??of device. Completed amiodarone drip protocol for 24 hours, started on oral amiodarone 200 mg daily Pending repeat 2D echocardiogram ?? Acute hypokalemia (E87.6):?? Maintains her potassium 4.0-4.5 Avoid hyperkalemia Continue Aldactone ?? Ischemic cardiomyopathy (I25.5):??EF 30 to 35% Euvolemic, not here with acute heart failure Continue oral Lasix 40 mg daily Continue Aldactone and Toprol-XL. Recommend initiate Entresto ?? Atrial fibrillation (I48.91):??C ontinue Eliquis 5 mg p.o. twice daily Continue maintenance dose of p.o. amiodarone. Continue Toprol-XL ? Discharge Planning:?Discharge Planning:?Discharge To, Anticipated:??Home with family care ? This is a split/shared visit. ??I,??Bernie Núñez PA-C??have seen this patient and discussed the patient with ??Marcelo Comer, and I have spent??15 minutes where I??personally examined the patient and reviewed the patient's chart??for recent labs, imaging, exam findings, telemetry monitorrhythm strips??and treatment??progress. ?? I, DrRadha??Marcelo Comer, agree with Bernie Núñez??PA-C's??note as presented above. ??I attestthat??I spent??20??out of??35??minutes for this visit. Electronically Signed By: Bernie Núñez On: 01.06.2024 16:15 BUFFER MACHINE Electronically Signed On: 01.06.2024 17:24 BUFFER MACHINE Marcelo Comer DO Discharge summary * Josue Iverson MD: PERFORM Event Display: Discharge Summary Authored Date: [id number] Patient Information Attending Physician: Margi Plummer MD Admitting Diagnosis: Sustained VT (ventricular tachycardia) Discharge Location: [facility] Primary Care Physician: [facility] Admit Date/Time: 01/06/2024 13:04 Discharge Diagnosis Sustained VT (ventricular tachycardia) (I47.20) Acute hypokalemia (E87.6) Class 1 obesity (E66.9) COPD mixed type (J44.9) On continuous oral anticoagulation (Z79.01) Diabetes mellitus (E11.9) Defibrillator discharge (Z45.02) Ischemic cardiomyopathy (I25.5) Atrial fibrillation (I48.91) CKD (chronic kidney disease), stage III (N18.30) Type 2 WA (myocardial infarction) (I21.A1) 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 Discharge Medications amiodarone (amiodarone 400 mg oral tablet)?400?Milligram?1?Tabs?By Mouth?Daily apixaban (apixaban 5 mg oral tablet)?5?Milligram?1?Tabs?By Mouth?2 Times a Day ascorbic acid (ascorbic acid 500 mg oral tablet)?500?Milligram?1?Tabs?By Mouth?Daily aspirin (aspirin 81 mg oral tablet, chewable)?81?Milligram?1?Tabs?Chewed?Daily atorvastatin (atorvastatin 40 mg oral tablet)?40?Milligram?1?Tabs?By Mouth?at Bedtime cholecalciferol (cholecalciferol 25 mcg (1000 intl units) oral capsule)?25?Microgram?1?Capsules?By Mouth?Daily empagliflozin (Jardiance 25 mg oral tablet)?0.5 ??TAB?By Mouth?Every AM finasteride (Proscar 5 mg oral tablet)?5?Milligram?1?Tabs?By Mouth?Daily FLUoxetine (PROzac 20 mg oral capsule)?20?Milligram?1?Capsules?By Mouth?Daily furosemide (Lasix 40 mg oral tablet)?80?Milligram?2?Tabs?By Mouth?Every AM furosemide (Lasix 40 mg oral tablet)?40?Milligram?1?Tabs?By Mouth?After Lunch lactobacillus acidophilus (lactobacillus acidophilus oral capsule)?1?Capsules?By Mouth?Daily levothyroxine (Synthroid 25 mcg (0.025 mg) oral tablet)?25?Microgram?1?Tabs?By Mouth?Daily loratadine (loratadine 10 mg oral tablet)?10?Milligram?1?Tabs?By Mouth?Daily metoprolol (Metoprolol Succinate ER 50 mg oral tablet, extended release)?50?Milligram?1?Tabs?By Mouth?at Bedtime nitroglycerin (nitroglycerin 0.4 mg sublingual tablet)?0.4?Milligram?1?Tabs?Sublingual?Now and Every 5 minutes?as needed?as needed for chest pain?not to exceed 3 doses/15 mi n--if pain persists, seek medical attention pantoprazole (Protonix 20 mg oral enteric coated tablet)?20?Milligram?1?Tabs?By Mouth?Daily rOPINIRole (rOPINIRole 0.5 mg oral tablet)?0.5?Milligram?1?Tabs?By Mouth?3 Times a Day sacubitril-valsartan (sacubitril-valsartan 24 mg-26 mg oral tablet)?See Instructions?0.5 TabsOral BID spironolactone (spironolactone 25 mg oral tablet)?25?Milligram?1?Tabs?By Mouth?Daily tamsulosin (tamsulosin 0.4 mg oral capsule)?0.4?Milligram?1?Capsules?By Mouth?2 Times a Day ? Follow-Up/Discharge Instructions [facility], 01/08/24 08:00 - walk in basis Josh Yanes MD, CAR, 01/28/24 09:40 Melania Rich MD, CAR, RAD, 01/22/24 08:45 - Spoke with Pinky. ?? Education DIABETES, General Info (CUSTOM) Hypokalemia Supraventricular Tachycardia Treatment for Supraventricular Tachycardia (SVT) Post Discharge Care Discharge Request ?01/07/24 15:34:00 BUFFER MACHINE, Home Routine Pending Results US TTE w/ Doppler Comp ordered on 01/05/2024 Objective Measurements (most recent)?? Height 172.72 cm?Martin RN, Melania ??01/05 16:22 Height (inches) 68.00 inch?SYSTEM ??01/05 16:22 Weight 90.85 kg?Ace PCT, Jd ??01/07 03:32 Weight (lbs) 200.29 lb?SYSTEM ??01/07 03:32 Body Mass Index 30.45 kg/m2?Ace PCT, Jd ??01/07 03:32 Scale Type Bed scale?Ace PCT, Jd ??01/07 03:32 ? GEN: no acute distress CVS: S1 S2; Resp : clear breath sounds. ABD: Soft; No guarding / Distension Neuro : Alert, Awake. Hospital Course admitted after AICD shock Treated with amiodarone AICD interrogated and reprogrammed. Discharged home in a stable condition. ?? Post-Discharge Plan of Care. . Follow with PCP in 3-5 days - Follow with consultants as scheduled or advised. - Return to ER in case of any symptom recurrence or new symptoms - Please take time to review the medication changes and take the medications as prescribed. About 20-25 minutes spent on discharge process, [id number] with patient, physical exam, medication reconciliation , sending/printing prescriptions, and providing final instructions and recommendations to patient and nurses for discharge planning, and post-discharge follow ups.? Electronically Signed By: Josue Iverson MD On: 01.07.2024 17:46 BUFFER MACHINE Patient Care team information Care Team Personnel Name: [facility], Clinic Member Role: Primary Care Physician Address: Address: [address] [place] [address] [place] Care Team Related Persons Name: DULCE FAN Address: Home [address] [place], [place] [id number]
--- OUTSIDE RECORDS SUMMARY | 2024-05-21 20:39 | XMS_ITS | Continuity of Care Document ---
Author Name Unknown Organization [facility] Address [address] [place] [address]- Care Team Providers Care Position Classification Manager Name Role Phone Miryam boggs, [address] Primary C are Physician Encounter [facility] [id number] Date(s): 01/12/23 - 01/17/23 [facility] [address] [facility] [phone] [place] [address] [facility] Encounter Diagnosis Acute combined systolic and diastolic CHF, NYHA class 3(Discharge Diagnosis) - 01/12/23 Acute cardiac pulmonary edema(Discharge Diagnosis) - 01/12/23 Discharge Disposition: Routine to Home Attending Physician: Margi Plummer MD Admitting Physician: Margi Plummer MD Referring Physician: No referring, Doctor Reason for Visit CHF SOB Allergies, Adverse Reactions, Alerts Substance Reaction Severity Status codeine hives Active penicillin hives Active Assessment and Plan Extracted from: Title:Progress/SOAP Note, Cardiology Author:Rhys bragg MD [place] Date:01/17/23 Diagnoses 1. ??Acute combined systolic and diastolic CHF, NYHA class 3 ??(I50.41) 2. ??Acute cardiac pulmonary edema ??(I50.1) 3. ??Diabetes ??(E11.9) 4. ??Hyperlipemia ??(E78.5) 5. ??Atrial fibrillation ??(I48.91) 6. ??HTN (hypertension) ??(I10) 7. ??CAD in [place] artery ??(I25.10) 8. ??Presence of stent in coronary artery ??(Z95.5) ? acute??on chronic heart failure exacerbation. - BNP 235->69->49 ? ??Continue Entresto low-dose - Continue??acetazolamide??250 mg daily for total 5 days ? Continue home metoprolol 50 mg XL daily - Continue farxiga 10 mg daily ? ??Strict I's and O's, daily weight, keep K greater than 4 mag??greater than 2 ? ??Continue amiodarone??100 mg??mg p.o. daily, continue Eliquis 5 mg p.o. twice daily for CVA??prophylaxis ? ??Continue high intensity statin ? ??Continue management of COPD per primary team ? ??Continue management of diabetes and hypothyroidism per primary team ?? Patient may be discharged home??from cardiology standpoint review.?? He needs to??have cardiac rehab??as outpatient.?? Outpatient follow-up with cardiology??this Sunday??at 2:30 PM.?? When he comes to clinic we will order labs??and review his medications??tolerance.?? He will need home oxygen. ? Diagnostic Tests Pending * Potassium Level 01/13/23 Medications acetaZOLAMIDE (acetaZOLAMIDE 250 mg oral tablet) Status: Ordered Start Date: 01/17/23 Stop Date: 01/22/23 1 Tabs By Mouth Daily for 5 Days. Refills: 0. [facility] [address] [facility] [place] [phone] amiodarone (amiodarone 200 m g oral tablet) Status: Ordered Start Date: 01/15/23 Stop Date: 02/14/23 100 Milligram By Mouth Daily for 30 Days. Refills: 0. [facility] [address] [place] [address] [phone] apixaban (apixaban 5 mg oral tablet) Status: [...] 01/15/23 1 Tabs By Mouth at Bedtime. cyanocobalamin (cyanocobalam in 1000 mcg/mL injectable solution) Status: Ordered Start Date: 01/02/23 1,000 Microgram Intramuscular Every Sunday. dapagliflozin (dapagliflozin 10 mg oral tablet) Status: Ordered Start Date: 01/15/23 1 Tabs By Mouth Daily. Refills: 0. Ordering provider: Margi Plummer MD [facility] [address] [facility] [address] [phone] docusate (docusate sodium 10 0 mg oral tablet) Status: Ordered Start Date: 01/12/23 1 Tabs By Mouth 2 Times a Day. finasteride (Proscar 5 mg or al tablet) [...] pm. Refills: 0. Ordering provider: Margi Plummer MD [facility] [address] [place] [address] [phone] guaifenesin-dextromethorphan (guaifenesin-dextromethorphan 200 mg-20 mg/10 mL oral liquid) Status: Ordered Start Date: 01/15/23 Stop Date: 01/25/23 10 Milliliter By Mouth Every 4 hours as needed Cough for 10 Days. Refills: 0. Ordering provider: Margi Plummer MD [facility] [address] [facility] [phone] levothyroxine (Synthroid 25 mcg (0.025 mg) oral [...] 01/12/23 1 Tabs By Mouth at Bedtime. multivitamin with minerals ( Centrum Silver oral tablet) Status: Ordered Start Date: 12/17/22 1 Tabs By Mouth 2 Times a Day. pantoprazole (Protonix 20 mg oral enteric coated tablet) Status: Ordered Start Date: 12/17/22 1 Tabs By Mouth Daily. potassium chloride (Potass[place] m Chloride (Eqv-K-Tab) 20 mEq oral tablet, extended release) Status: Ordered Start Date: 01/17/23 Stop Date: 02/16/23 1 Tabs By Mouth Daily for 30 Days. Refills: 0. Ordering provider: Margi Plummer MD [facility] [address] [facility] [place] [address] [phone] potassium chloride ([place]ass[place] m Chloride (Eqv-K-Tab) 20 mEq oral tablet, extended release) Status: Ordered Start Date: 01/16/23 Stop Date: 02/15/23 1 Tabs By Mouth 2 Times a Day for 30 Days. Refills: 0. Ordering provider: Margi Plummer MD [facility] [address] [facility] [place] [phone] sacubitril-valsartan (Entres to 24 mg-26 mg oral tablet) Status: Ordered Start Date: 01/15/23 1 Tabs By Mouth 2 Times a Day. Refills: 0. Ordering provider: Margi Plummer MD [facility] [address] [facility] [place] [phone] spironolactone (spironolacto ne 25 mg oral tablet) Status: Ordered Start Date: 01/15/23 1 Tabs By Mouth Daily. Refills: 0. Ordering provider: Margi Plummer MD [facility] [address] [facility] [place] [phone] tamsulosin (tamsulosin 0.4 m g oral capsule) Status: Ordered Start Date: 01/15/23 1 Capsules By Mouth 2 Times a Day. insulin aspart (insulin aspa rt NovoLog correctional scale Low) Status: Completed Start Date: 01/16/23 Stop Date: 01/16/23 2-8 units Subcutaneous. Refills: 0. insulin aspart (insulin aspa rt NovoLog correctional scale Low) Status: Completed Start Date: 01/16/23 Stop Date: 01/16/23 sliding scale low Subcutaneous. Refills: 0. insulin aspart (insulin aspa rt NovoLog correctional scale Low) Status: Completed Start Date: 01/17/23 Stop Date: 01/17/23 2-8 units Subcutaneous. Refills: 0. insulin aspart (insulin aspa rt NovoLog correctional scale Low) Status: Completed Start Date: 01/17/23 Stop Date: 01/17/23 2-8 units Subcutaneous. Refills: 0. Problem List Condition Confirmation Course Effective Dates Status Health St atus Informant Atrial fibrillation Confirmed Active COPD (chronic obstructive pulmonary disease) Confirmed Active CHF (congestive heart failure) Confirmed Active Diabetes Confirmed Active Hyperlipemia Confirmed Active HTN (hypertension) Confirmed Active Procedures Procedure Date Related Diagnosis Body Site Status Collection of venous blood b y venipuncture 01/17/23 Completed Collection of venous blood b y venipuncture 01/16/23 Completed Arterial puncture, withdrawa l of blood for diagnosis 01/15/23 Completed Collection of venous blood b y venipuncture 01/15/23 Completed Collection of venous blood b y venipuncture 01/14/23 Completed Collection of venous blood b y venipuncture 01/13/23 Completed Arterial puncture, withdrawa l of blood for diagnosis 01/12/23 Completed Collection of venous blood b y venipuncture 01/12/23 Completed Cholecystectomy; 2020 Complete d Appendectomy; 03/20/64 Completed inguinal hernia repair Co mpleted Results Laboratory List Name Date B Type Natriuretic Peptide (BNP) 01/17/23 Basic Metabolic Panel (BMP) 01/17/23 Magnesium Level 01/17/23 Phosphorus Level 01/17/23 POC Glucose 01/17/23 POC Glucose 01/17/23 Potassium Level 01/17/23 POC Glucose 01/16/23 Auto Diff 01/16/23 B Type Natriuretic Peptide (BNP) 01/16/23 Basic Metabolic Panel (BMP) 01/16/23 CBC with Diff 01/16/23 Magnesium Level 01/16/23 Phosphorus Level 01/16/23 ABG+Lytes+COox+Lactate 01/15/23 Auto Diff 01/14/23 B Type Natriuretic Peptide (BNP) 01/14/23 Basic Metabolic Panel (BMP) 01/14/23 CBC with Diff 01/14/23 Magnesium Level 01/14/23 Phosphorus Level 01/14/23 Troponin +3hr 01/13/23 Troponin +1hr 01/12/23 ABG+Lytes+COox+Lactate 01/12/23 ABG+Lytes+COox+Lactate 01/12/23 Troponin (TNIH) (Troponin ED (STAT, +1hr , +3hr)) 01/12/23 01/17/23 Test Result Reference Range Specimen [facility] Glucose Level 142 mg/dL (Normal is 74-10 6 mg/dL) Blood [facility] Lab POC Glucose 133 mg/dL (Normal is 70-10 5 mg/dL) Blood [facility] Lab POC Glucose 127 mg/dL (Normal is 70-10 5 mg/dL) Blood [facility] Lab Sodium 132 mmol/L (Normal is 136-1 45 mmol/L) Blood [facility] Lab Potassium 3.1 mmol/L (Normal is 3.5-5 .1 mmol/L) Blood [facility] Lab Potassium 3.1 mmol/L (Normal is 3.5-5 .1 mmol/L) Blood [facility] Lab Chloride 99 mmol/L (Normal is 98-10 7 mmol/L) Blood [facility] Lab CO2 28 mmol/L (Normal is 21-32 mmol/L) Blood [facility] Lab Anion Gap 5 mmol/L (Normal is 3-11 mmol/L) Blood [facility] Lab BUN 30 mg/dL (Normal is 7-18 mg/dL) Blood [facility] Lab Creatinine 1.2 mg/dL (Normal is 0.6-1 .3 mg/dL) Blood [facility] Lab BUN/Creat Ratio 25.00 Ratio (Normal is 6.00-22.00 Ratio) Blood [facility] Lab Calcium 9.9 mg/dL (Normal is 8.5-1 0.0 mg/dL) Blood [facility] Lab Mg Lvl 2.3 mg/dL (Normal is 1.8-2 .4 mg/dL) Blood [facility] Lab Phosphorus 4.5 mg/dL (Normal is 2.5-4 .9 mg/dL) Blood [facility] Lab eGFR Cr 62 mL/min/1.73m2 Blood eGFR Pediatric Not Reported mL/min/1.73m2 1 (Normal is >=75 mL/min/1.73m2) Blood MAR Glucose Result 133 MAR Glucose Result 127 BNP 49.7 pg/mL (Normal is 0.0-1 00.0 pg/mL) Blood [facility] Lab 01/16/23 Test Result Reference Range Specimen Source Pura albarado WBC 8.90 x10e3/mcL (Normal is 4.30-11.00 x10e3/mcL) Blood [facility] Lab RBC 4.58 x10e6/mcL (Normal is 4.60-6.20 x10e6/mcL) Blood [facility] Lab Hgb 15.20 gm/dL (Normal is 14.00-18.00 gm/dL) Blood [facility] Lab Hct 44.00 % (Normal is 40.00-54.00 %) Blood [facility] Lab MCV 96.2 Femtoliters (Normal is 80.0-100.0 Femtoliters) Blood [facility] Lab MCH 33.20 pg (Normal is 26.00-33.00 pg) Blood [facility] Lab MCHC 34.50 gm/dL (Normal is 31.00-36.00 gm/dL) Blood [facility] Lab RDW-CV 14.40 % (Normal is 11.00-17.00 %) Blood [facility] Lab RDW-SD 49.00 Femtoliters (Normal is 36.50-45.90 Femtoliters) Blood [facility] Lab Plt 233 x10e3/mcL (Normal is 150-3 75 x10e3/mcL) Blood [facility] Lab MPV 8.20 Femtoliters (Normal is 7.40-11.40 Femtoliters) Blood [facility] Lab Neut % Auto 61.1 % (Normal is 40.0-70.0 %) Blood [facility] Lab Lymph % Auto 21.2 % (Normal is 25.0-40.0 %) Blood [facility] Lab Payne % Auto 14.4 % (Normal is 0.0-14.0 %) Blood [facility] Lab Eos % Auto 3.0 % (Normal is 0.0-6 .0 %) Blood [facility] Lab Baso % Auto 0.3 % (Normal is 0.0-2 .0 %) Blood [facility] Lab Neut # Auto 5.4 x10e3/mcL (Normal is 2.0-11.0 x10e3/mcL) Blood [facility] Lab Lymph # Auto 1.9 x10e3/mcL (Normal is 1.3-4 .4 x10e3/mcL) Blood [facility] Lab Payne # Auto 1.3 x10e3/mcL (Normal is 0.0-1 .4 x10e3/mcL) Blood [facility] Lab Eos # Auto 0.3 x10e3/mcL (Normal is 0.0-0 .5 x10e3/mcL) Blood [facility] Lab Baso # Auto 0.0 x10e3/mcL (Normal is 0.0-0 .2 x10e3/mcL) Blood [facility] Lab Glucose Level 137 mg/dL (Normal is 74-10 6 mg/dL) Blood [facility] Lab POC Glucose 152 mg/dL (Normal is 70-10 5 mg/dL) Blood [facility] Lab Sodium 133 mmol/L (Normal is 136-1 45 mmol/L) Blood [facility] Lab Potassium 3.4 mmol/L (Normal is 3.5-5 .1 mmol/L) Blood [facility] Lab Chloride 97 mmol/L (Normal is 98-10 7 mmol/L) Blood [facility] Lab CO2 32 mmol/L (Normal is 21-32 mmol/L) Blood [facility] Lab Anion Gap 4 mmol/L (Normal is 3-11 mmol/L) Blood [facility] Lab BUN 24 mg/dL (Normal is 7-18 mg/dL) Blood [facility] Lab Creatinine 1.2 mg/dL (Normal is 0.6-1 .3 mg/dL) Blood [facility] Lab BUN/Creat Ratio 20.00 Ratio (Normal is 6.00-22.00 Ratio) Blood [facility] Lab Calcium 9.8 mg/dL (Normal is 8.5-10.0 mg/dL) Blood [facility] Lab Mg Lvl 2.1 mg/dL (Normal is 1.8-2 .4 mg/dL) Blood [facility] Lab Phosphorus 4.6 mg/dL (Normal is 2.5-4 .9 mg/dL) Blood [facility] Lab eGFR Cr 62 mL/min/1.73m2 Blood eGFR Pediatric Not Reported mL/min/1.73m2 2 (Normal is >=75 mL/min/1.73m2) Blood MAR Glucose Result 130 MAR Glucose Result 130 BNP 69.5 pg/mL (Normal is 0.0-100.0 pg/mL) Blood [facility] Lab 01/15/23 Test Result Reference Range Specimen Source Labo ratory Arterial Glucose 202 mg/dL (Normal is 74-106 mg/dL) Arter ial Blood [facility] Lab Art Na 138 mmol/L (Normal is 136-1 45 mmol/L) Arterial Blood [facility] Lab Art K 4.1 mmol/L (Normal is 3.5-5 .1 mmol/L) Arterial Blood [facility] Lab Art iCa 1.2 mmol/L (Normal is 1.0-1 .2 mmol/L) Arterial Blood [facility] Lab pH Arterial 7.480 (Normal is 7.350-7.450) Arterial Bl ood [facility] Lab Art pCO2 44.8 mmHg (Normal is 35.0- 45.0 mmHg) Arterial Blood [facility] Lab Art pO2 51.1 mmHg (Normal is 80.0- 100.0 mmHg) Arterial Blood [facility] Lab Art TempC,pH 7.480 Arterial Blood [facility] Lab Art TempC,PCO2 44.8 mmHg Arterial Blood [facility] La b Art TempC,PO2 51.1 mmHg Arterial Blood [facility] Lab Art HCO3 32.0 mmol/L (Normal is 22.0- 28.0 mmol/L) Arterial Blood [facility] Lab Art Base Excess 8.5 mmol/L (Normal is -2.0- 2.0 mmol/L) Arterial Blood [facility] Lab Art sO2 88 % (Normal is 94-100 %) Arterial Blood [facility] Lab Art tHB 15.9 gm/dL (Normal is 14.0- 18.0 gm/dL) Arterial Blood [facility] Lab Art O2 Hb 87 % (Normal is 94-98 %) Arterial Blood [facility] Lab Art Carboxyhemoglobin 1.6 % (Normal is 0.5-1.5 %) Art erial Blood [facility] Lab Art Methemoglobin 0.1 % (Normal is 0.0-1.5 %) Arteria l Blood [facility] Lab POC Juan Antonio Test POS Arterial Blood [facility] La b POC Del Sys ROOM AIR Arterial Blood [facility] Lab POC FIO2 21 % Arterial Blood [facility] Lab POC Pt Temp 37.0 DegC Arterial Blood [facility] Lab POC Site Radial Left Arterial Blood [facility] Lab POC Sample Arterial Arterial Blood [facility] Lab POC Vent Mode NO VENT Arterial Blood [facility] Lab Art Hct 48.6 % (Normal is 40.0-54.0 %) Arterial Blo od [facility] Lab Art Lactate 1.9 mmol/L (Normal is 0.4-2 .0 mmol/L) Arterial Blood [facility] Lab Line Ordering Clinician ID [id number] Arterial Blood [facility] Lab 01/14/23 Test Result Reference Range Specimen Source Labo ratory WBC 9.10 x10e3/mcL 3 (Normal is 4.30-11.00 x10e3/mcL) Blood [facility] Lab RBC 4.32 x10e6/mcL (Normal is 4.60-6.20 x10e6/mcL) Blood [facility] Lab Hgb 14.20 gm/dL (Normal is 14.00-18.00 gm/dL) Blood [facility] Lab Hct 41.60 % (Normal is 40.00-54.00 %) Blood [facility] Lab MCV 96.2 Femtoliters (Normal is 80.0-100.0 Femtoliters) Blood [facility] Lab MCH 32.80 pg (Normal is 26.00-33.00 pg) Blood [facility] Lab MCHC 34.10 gm/dL (Normal is 31.00-36.00 gm/dL) Blood [facility] Lab RDW-CV 14.20 % (Normal is 11.00-17.00 %) Blood [facility] Lab RDW-SD 48.10 Femtoliters (Normal is 36.50-45.90 Femtoliters) Blood [facility] Lab Plt 221 x10e3/mcL (Normal is 150-3 75 x10e3/mcL) Blood [facility] Lab MPV 8.20 Femtoliters (Normal is 7.40-11.40 Femtoliters) Blood [facility] Lab Neut % Auto 64.6 % (Normal is 40.0-70.0 %) Blood [facility] Lab Lymph % Auto 18.7 % (Normal is 25.0-40.0 %) Blood [facility] Lab Payne % Auto 13.6 % (Normal is 0.0-14.0 %) Blood [facility] Lab Eos % Auto 2.7 % (Normal is 0.0-6 .0 %) Blood [facility] Lab Baso % Auto 0.4 % (Normal is 0.0-2 .0 %) Blood [facility] Lab Neut # Auto 5.9 x10e3/mcL (Normal is 2.0-11.0 x10e3/mcL) Blood [facility] Lab Lymph # Auto 1.7 x10e3/mcL (Normal is 1.3-4 .4 x10e3/mcL) Blood [facility] Lab Payne # Auto 1.2 x10e3/mcL (Normal is 0.0-1 .4 x10e3/mcL) Blood [facility] Lab Eos # Auto 0.2 x10e3/mcL (Normal is 0.0-0 .5 x10e3/mcL) Blood [facility] Lab Baso # Auto 0.0 x10e3/mcL (Normal is 0.0-0 .2 x10e3/mcL) Blood [facility] Lab Glucose Level 186 mg/dL (Normal is 74-10 6 mg/dL) Blood [facility] Lab Sodium 136 mmol/L (Normal is 136-1 45 mmol/L) Blood [facility] Lab Chloride 97 mmol/L (Normal is 98-10 7 mmol/L) Blood [facility] Lab CO2 36 mmol/L (Normal is 21-32 mmol/L) Blood [facility] Lab Anion Gap 3 mmol/L (Normal is 3-11 mmol/L) Blood [facility] Lab BUN 20 mg/dL (Normal is 7-18 mg/dL) Blood [facility] Lab Creatinine 1.2 mg/dL (Normal is 0.6-1 .3 mg/dL) Blood [facility] Lab BUN/Creat Ratio 16.67 Ratio (Normal is 6.00-22.00 Ratio) Blood [facility] Lab Calcium 9.7 mg/dL (Normal is 8.5-10.0 mg/dL) Blood [facility] Lab Mg Lvl 2.0 mg/dL (Normal is 1.8-2 .4 mg/dL) Blood [facility] Lab Phosphorus 4.1 mg/dL (Normal is 2.5-4 .9 mg/dL) Blood [facility] Lab Estimated Creatinine Clearance 40.83 mL/min 4 eGFR Cr 62 mL/min/1.73m2 Blood eGFR Pediatric Not Reported mL/min/1.73m2 5 (Normal is >=75 mL/min/1.73m2) Blood BNP 235.0 pg/mL (Normal is 0.0-100.0 pg/mL) Blood [facility] Lab 01/13/23 Test Result Reference Range Specimen Source [facility] Estimated Creatinine Clearance 49.00 mL/min 6 Troponin TNIH 18.8 ng/L (Normal is 0.0-7 8.5 ng/L) Blood [facility] Lab 01/12/23 Test Result Reference Range Specimen Source Labo ratory Arterial Glucose 125 mg/dL (Normal is 74-1 06 mg/dL) Arterial Blood [facility] Lab Arterial Glucose 122 mg/dL (Normal is 74-1 06 mg/dL) Arterial Blood [facility] Lab Art Na 142 mmol/L (Normal is 136-1 45 mmol/L) Arterial Blood [facility] Lab Art Na 142 mmol/L (Normal is 136-1 45 mmol/L) Arterial Blood [facility] Lab Art K 3.7 mmol/L (Normal is 3.5-5 .1 mmol/L) Arterial Blood [facility] Lab Art K 3.6 mmol/L (Normal is 3.5-5 .1 mmol/L) Arterial Blood [facility] Lab Art iCa 1.2 mmol/L (Normal is 1.0-1 .2 mmol/L) Arterial Blood [facility] Lab Art iCa 1.2 mmol/L (Normal is 1.0-1 .2 mmol/L) Arterial Blood [facility] Lab Troponin TNIH 20.7 ng/L (Normal is 0.0-7 8.5 ng/L) Blood [facility] Lab Troponin TNIH 21.5 ng/L (Normal is 0.0-7 8.5 ng/L) Blood [facility] Lab pH Arterial 7.449 (Normal is 7.350-7.450) Arterial Blood [facility] Lab pH Arterial 7.427 (Normal is 7.350-7.450) Arterial Blood [facility] Lab Art pCO2 45.3 mmHg (Normal is 35.0- 45.0 mmHg) Arterial Blood [facility] Lab Art pCO2 49.4 mmHg (Normal is 35.0- 45.0 mmHg) Arterial Blood [facility] Lab Art pO2 51.8 mmHg (Normal is 80.0- 100.0 mmHg) Arterial Blood [facility] Lab Art pO2 27.7 mmHg (Normal is 80.0- 100.0 mmHg) Arterial Blood [facility] Lab Art TempC,pH 7.449 Arterial Blood [facility] Lab Art TempC,pH 7.427 Arterial Blood [facility] Lab Art TempC,PCO2 45.3 mmHg Arterial Blood [facility] La b Art TempC,PCO2 49.4 mmHg Arterial Blood [facility] La b Art TempC,PO2 51.8 mmHg Arterial Blood [facility] Lab Art TempC,PO2 27.7 mmHg Arterial Blood [facility] Lab Art HCO3 30.0 mmol/L (Normal is 22.0- 28.0 mmol/L) Arterial Blood [facility] Lab Art HCO3 29.7 mmol/L (Normal is 22.0- 28.0 mmol/L) Arterial Blood [facility] Lab Art Base Excess 6.4 mmol/L (Normal is -2.0- 2.0 mmol/L) Arterial Blood [facility] Lab Art Base Excess 6.8 mmol/L (Normal is -2.0- 2.0 mmol/L) Arterial Blood [facility] Lab Art sO2 88 % (Normal is 94-100 %) Arterial Blood [facility] Lab Art sO2 61 % (Normal is 94-100 %) Arterial Blood [facility] Lab Art tHB 13.1 gm/dL (Normal is 14.0- 18.0 gm/dL) Arterial Blood [facility] Lab Art tHB 13.7 gm/dL (Normal is 14.0- 18.0 gm/dL) Arterial Blood [facility] Lab Art O2 Hb 87 % (Normal is 94-98 %) Arterial Blood [facility] Lab Art O2 Hb 60 % (Normal is 94-98 %) Arterial Blood [facility] Lab Art Carboxyhemoglobin 1.9 % (Normal is 0.5-1.5 %) Art erial Blood [facility] Lab Art Carboxyhemoglobin 1.7 % (Normal is 0.5-1.5 %) Art erial Blood [facility] Lab Art Methemoglobin -0.3 % (Normal is 0.0-1.5 %) Arteria l Blood [facility] Lab Art Methemoglobin 0.0 % (Normal is 0.0-1.5 %) Arteria l Blood [facility] Lab POC Juan Antonio Test POS Arterial Blood [facility] La b POC Juan Antonio Test N/A Arterial Blood [facility] La b POC Del Sys ROOM AIR Arterial Blood [facility] Lab POC Del Sys ROOM AIR Arterial Blood [facility] Lab POC FIO2 21 % Arterial Blood [facility] Lab POC FIO2 21 % Arterial Blood [facility] Lab POC Pt Temp 37.0 DegC Arterial Blood [facility] Lab POC Pt Temp 37.0 DegC Arterial Blood [facility] Lab POC Site Radial Left Arterial Blood [facility] Lab POC Site Arterial Line Arterial Blood [facility] Lab POC Sample Arterial Arterial Blood [facility] Lab POC Sample Arterial Arterial Blood [facility] Lab POC Total RR 20 br/min Arterial Blood [facility] Lab POC Vent Mode NO VENT Arterial Blood [facility] Lab POC Vent Mode NO VENT Arterial Blood [facility] Lab Art Hct 40.3 % (Normal is 40.0- 54.0 %) Arterial Blood [facility] Lab Art Hct 42.1 % (Normal is 40.0- 54.0 %) Arterial Blood [facility] Lab Art Lactate 1.3 mmol/L (Normal is 0.4-2 .0 mmol/L) Arterial Blood [facility] Lab Art Lactate 1.8 mmol/L (Normal is 0.4-2 .0 mmol/L) Arterial Blood [facility] [place] [id number] Arterial Blood [facility] Lab Line Ordering Clinician ID Anonymous Arterial Blood [facility] Lab 1Result Comment: Not reported for adult patients ( > 18 years old ). 2Result Comment: Not reported for adult patients ( > 18 years old ). 3Result Comment: Calculated using method: Cockroft-Gault 4Result Comment: REPEAT AND REVIEWED BY BC 5Result Comment: Not reported for adult patients ( > 18 years old ). 6Result Comment: Calculated using method: Cockroft-Gault Laboratory Information [facility] Lab CLIA Number: [id number] [address] Lab CLIA Number: [id number] [address] Lab CLIA Number: [id number] [address] Lab CLIA Number: [id number] [address] Lab CLIA Number: [id number] [address] Vital Signs 01/17/23 Temperature (Route Not Specified) 36.5 DegC (Normal is 36.5-37.3 DegC) Peripheral Pulse Rate 77 bpm (Normal is 60-100 bpm) Respiratory Rate 16 br/min (Normal is 12-2 0 br/min) Blood Pressure 107/65mmHg (Normal is 90-13 5/60-80 mmHg) 01/15/23 Weight 89.3 kg 01/12/23 Height 160.02 cm Social History Social History Type Response Tobacco Denies Smoking Status Former smoker Sex Male Hospital Discharge Instructions Patient Education 01/16/2023 11:46:27 Using Oxygen Safely Using Oxygen Safely Using prescribed oxygen can help you prevent shortness of breath. It can also improve sleep and mental alertness. And it can help you to be more active. But you must follow important safety rules when using your oxygen unit. This will reduce the chances of fire and other hazards. Remember these do???s and don???ts: Oxygen do???s These include:?Do??keep flame sources at least 5 feet away from where your oxygen unit is used or stored. Open flames should be kept at least 10 feet away. This includes cigarettes, matches, candles, fireplaces,gas burners, and pipes. It also includes anything else that could start a fire. Never smoke or use an open flame when wearing oxygen. ???Do??keep the oxygen unit at least 5 feet away from heat sources. This includes electric or gas space heaters. It also includes steam pipes, furnaces, and radiators. ???Do??ask the oxygen unit supplier if you should keep the oxygen unit away from other appliances. You may need to keep it away from TVs and radios. ???Do??turn off the oxygen unit fully when it???s not in use. ???Do??have a fire extinguisher nearby. Make sure you and others in your home know how to use it. ???Do be careful not to trip over the oxygen tubing. Oxygen don'ts These include:?Don???t??smoke. Don???t let others smoke near you. Post a No Smoking sign in your home. ???Don???t??use aerosol sprays near the oxygen unit. This includes air fresheners and hairspray. Aerosol sprays are very flammable. ???Don???t??use vapor rubs, petroleum jelly, or oil-based hand lotion. These are flammable. Use water-based products instead. ???Don???t??use oxygen while cooking with gas. Ask the oxygen unit supplier about other types of cooking. ???Don???t??oil the oxygen unit. And don???t use it with oily or greasy hands. ???Don???t??place a liquid oxygen unit on its side. The oxygen inside can evaporate. Oxygen should always be stored upright in a secured device. ???Don't touch the oxygen unit with wet hands from using an alcohol-based hand cloth finishing range tender. When using an alcohol-based hand cloth finishing range tender, rub all of the liquid into your skin. Your hands must be fully dry before touching the oxygen unit. ?? 9454-8195 [employer]. All rights reserved. This information is not intended as a substitute for professional medical care. Always follow your healthcare professional's instructions. 01/16/2023 11:46:23 Using Oxygen at Home Using an Oxygen Tank at Home Your healthcare provider has prescribed oxygen. This can help make breathing easier. You were shownin the hospital how to use your oxygen unit. Here are some tips on safely using oxygen at home. Do all steps each time you use your oxygen unit. The steps will vary based on the type of oxygen unit you use. General tips ???Wash your hands before and after using your oxygen. Don't touch the oxygen unit if your hands are wet from using an alcohol-based hand cloth finishing range tender.??Your hands must be totally dry before touching the oxygen unit. ???Ask your healthcare provider and medical supply company any questions you have. They can help you find out what is best for you. ???Keep the unit and tubing clean. This helps prevent breathing in germs. Ask the medical supply company about cleaning or taking care of your oxygen unit. Step 1. Check your supply ???Pressurize your oxygen tank. This is for compressed tanks only. Other devices can simply be turned on. Follow the directions from your healthcare provider or medical supply company. ???Check the oxygen gauge on the tank to be sure you have enough. Your medical supply company will tell you when to call for more oxygen. Or they will deliver your oxygen on a regular schedule. ???Check the water level if you have a humidifier bottle. When the level is at or below half full, refill it with sterile or distilled water. Ask the company how often to change your humidifier bottle. This helps prevent germs. Step 2. Attach the tubing ???Attach the nose tube (cannula) to your oxygen unit as you were shown. ???Check that the tubing is not bent or blocked. Step 3. Set your flow rate ???Set the oxygen to flow at the rate your healthcare provider gave you. This is . ???Never change this rate unless your provider tells you to. Step 4. Put the cannula in your nose ???Put the cannula in your nose. Breathe through your nose normally. ???If you are not sure if the oxygen is flowing, do a simple test. Put the cannula in a glass of water. Oxygen is flowing if the water bubbles. Use oxygen safely Follow all safety guidelines when using oxygen at home. Tips for safe use include: ???Stay at least 10 feet from??open flames. And stay at least 5 feet from sources of a flame.??These include cigarettes, matches, candles, fireplaces, gas burners, and pipes. Or anything else that could start a fire. ???Don't smoke. Don???t be around others who are smoking. ???Keep oxygen tanks at least 5 feet from any heat source. This includes gas stoves, space heaters,and electric and gas heaters. ???Keep the door to the room open. This helps to move air around. It keeps the room from being stuffy. ???Protect your oxygen tank from being knocked over. ???Store the oxygen tank upright in a secure, approved storage device. ???Turn the tank off right away if it is knocked over and makes a hissing noise. If the regulator breaks or you can't safely turn the tank off, remove the tubing and leave the room. Then call the supply company or the fire department right away. ???Be careful not to trip over the tubing. ???Don't use lotions or creams that have petroleum jelly. This can start a fire when mixed with oxygen. ???Turn oxygen off when not using it. ???Follow the instructions for safe use from your supply company. Not using oxygen safely is dangerous. It can put you and your neighbors at higher risk for fires and morales. ???Know what to do in an emergency. Your emergency numbers should include 911, your healthcare provider, and your medical supply company. ??Taking care of your unit Talk with your medical supply company. They can tell you how often to change your tubing, cannula, and humidifier bottle, if you have one. When to call the healthcare provider Based on your healthcare provider's instructions, call your??provider??or 911 right away if you have any of these: ???Pale skin or a??blue color on your lips or fingernails ???More shortness of breath, wheezing, or other changes from your normal breathing, even with oxygen ???Confusion, restlessness, or more anxiety than normal ???Chest pain ?? 4308-8083 [employer]. All rights reserved. This information is not intended as a substitute for professional medical care. Always follow your healthcare professional's instructions. 01/16/2023 11:46:05 COPD, Discharge Instructions Discharge Instructions:??COPD You have been diagnosed with chronic obstructive pulmonary disease (COPD). This is a name given to a group of diseases that limit the flow of air in and out of your lungs. This makes it harder to breathe. With COPD, you are also more likely to get lung infections. COPD includes chronic bronchitis and emphysema. COPD is??most often caused by heavy, long-term cigarette smoking. Home care Quit??smoking ???If you smoke, get help to quit. It's the best thing you can do for your COPD and your overall health. ???Join a stop-smoking program. There are even telephone, text message, and online programs to helpyou quit. ???Ask your??healthcare provider??about medicines or other methods to help you quit. ???Ask family members to quit smoking as well. ???Don't allow people to smoke in your home, in your car,??or when they are around you. ???Don't use e-cigarettes or vaping products because they have harmful side effects. Protect yourself from infection ???Wash your hands often. Do your best to??keep your hands away from your face. Most germs are spread from your hands to your mouth. ???Get a flu shot every year. Also ask your??provider about pneumonia vaccines. ???Stay away from crowds. It's especially important to do this in the winter when more people have colds and flu. ???To stay healthy, get enough sleep, exercise regularly, and eat a balanced diet. You should: oGet about 8 hours of sleep every night. oTry to exercise for at least 30 minutes on most days. oHave healthy foods, including fruits and vegetables, 100% whole grains, lean meats and fish, and low-fat dairy products. Try to stay away from foods high in fats and sugar. Eating a healthy, balanced diet is important to staying as healthy as possible. So is trying to stay at your ideal weight. Being overweight or underweight can affect your health. Take your medicines and use oxygen therapy Take your medicines exactly as directed. Don't skip doses. During each appointment, talk with your healthcare provider about how well you can: ???Correctly use your inhaler. This is to make sure you are getting the correct medicine dose. ???[place] with other conditions you have and their treatments and if they affect your COPD If you use oxygen, use it correctly. That means the amount you use and the length of time you use it. ???Discuss long-term oxygen therapy with your provider. ???Don???t allow smoking in your home, in your car, or around you. This is very important if you use oxygen. Try to stay away from things that may affect your breathing. Stay away from indoor and outdoor pollution. Indoor pollution includes things such as burning wood, smoke from home cooking, and heating fuels. Outdoor pollution includes smoke, dusts, vapors, fumes, gases, and other chemicals. It also includes cold weather, high humidity, and allergens. Unless your provider has told you otherwise, drink at least 8 glasses of fluid every day to keep mucus thin. Ask about other things that can help. Ask your provider to show you pursed-lip breathing to help decrease shortness of breath. Manage your stress Stress can make COPD worse. Use this stress management method: ???Find a quiet place and sit or lie in a comfortable position. ???Close your eyes and do breathing exercises for several minutes. Ask your provider about the bestway to breathe. Talk to your healthcare provider about your ability to cope in your normal environment. Pulmonary rehabilitation ???Pulmonary rehab can help you feel better. Community-based and home-based programs work as well as hospital-based programs as long as they are held as often and are at the same intensity. Standard home-based pulmonary rehab programs help with breathing problems in people with COPD. Traditional sup ervised pulmonary rehab is still the best option for people with COPD. These programs include exercise, breathing methods, information about COPD, counseling, and help for smokers. ???Ask??your provider or your local hospital about programs in your area. Also talk with your healthcare provider about a self-management program to help control your symptoms. When to call your healthcare provider Call your??provider right away if you have: ???More mucus ???Yellow, green, bloody, or smelly mucus ???Fever of 100.4??F (38??C) or higher, or as directed by your healthcare provider ???Chills ???Swollen ankles Call 911 Call 911 if you have: ???Shortness of breath, wheezing, or trouble breathing that gets worse or doesn't get better with treatment ???Tightness in your chest that does not go away with your normal medicines, or as directed by yourhealthcare provider ???A new irregular heartbeat or feeling that your heart is racing ???Trouble talking ???Feeling lightheaded or dizzy ???Feeling of doom ???Skin turning blue, gill, or purple ?? 0765-2477 [employer]. All rights reserved. This information is not intended as a substitute for professional medical care. Always follow your healthcare professional's instructions. 01/16/2023 11:45:35 Heart Failure, Discharge Instructions Discharge Instructions for Heart Failure The heart is a muscle that pumps oxygen-rich blood to all parts of the body. When you have heart failure, the heart is not able to pump as well as it should. Blood and fluid may back up into the lungs. Some parts of the body don???t get enough oxygen-rich blood to work normally. These problems leadto the symptoms of heart failure. Heart failure can occur because of an injury to the heart or from natural processes.??You can control symptoms of heart failure with some lifestyle changes and by following your doctor's advice. Activity Ask your healthcare provider about an exercise program. Simple activities such as walking or gardening can help. Exercising most days of the week can make you feel better. Don't be discouraged if your progress is slow at first. Rest as needed. Stop activity if you get symptoms such as chest pain, lightheadedness, or shortness of breath. Find activities that you enjoy. Examples might be brisk walking, dancing, swimming, and gardening. These will help you stay active and strengthen your heart. Ask your healthcare provider about cardiac rehab. This is a program that helps you to exercise safely. Diet Follow a heart healthy diet. And make sure to limit the salt (sodium) in your diet. Salt causes your body to hold water. This makes your heart work harder because there is more fluid for the heart topump. Limit your salt as directed by your healthcare provider by doing the following: ???Limit canned, dried, packaged, and fast foods. ???Don't add salt to your food. ???Season foods with herbs instead of salt. ???Watch how much liquids you drink. Drinking too much can make heart failure worse. Talk with yourhealthcare provider about how much you should drink each day. ???Limit the amount of alcohol you drink. It may harm your heart. Women should have no more than 1 drink a day. Men should have no more than 2 a day. ???Ask that your meals have no added salt when you eat out. ???Talk with your healthcare provider before using salt substitutes. They often have potassium in them. This may not be good for your health. This will depend on how well your kidneys are working andwhat medicines you???re taking. Some people need extra potassium. Others don???t. Tobacco It's important to quit if you smoke. Smoking increases your chances of having a heart attack by harming the blood vessels that provide oxygen to your heart. This makes heart failure worse. Quitting smoking is the number one thing you can do to improve your health. Enroll in a stop-smoking program to improve your chances of success. Talk with your healthcare provider??about medicines or nicotine replacement therapy. Also ask your healthcare provider about smoking cessation support groups. Medicine Take your medicines exactly as prescribed. Learn the names and purpose of each of your medicines. Keep an accurate medicine list and current dosages with you at all times. Don't skip doses. If you miss a dose of your medicine, take it as soon as you remember. If you miss a dose and??it's almost time for your next dose, just wait and take your next dose at the normal time. Don't take a double dose. If you are unsure, call your doctor's office. Make sure not to mix up your medicines or forget what you've taken the same day. Refill your prescriptions before you run out of medicine. Talk with your healthcare provider if you have trouble with the cost of your medicines. Weight monitoring Weigh yourself every day. A sudden weight gain can mean your heart failure is getting worse. Weigh yourself at the same time of day and in the same kind of clothes. Ideally, weigh yourself first thing in the morning after you empty your bladder, but before you eat breakfast. Your healthcare provider will show you how to track your weight. They will also tell you when you should call if you have asudden, unexpected increase in your weight. In general, your healthcare provider may ask you to report if your weight goes up by more than 2 pounds in 1 day,?? 5 pounds in 1 week, or whatever weight gain you were told by your doctor. This is asign that you are retaining more fluid than you should be. Clues to weight gain include checking your ankles for swelling, or noticing you are short of breath when you lie down. Follow-up care Have a follow-up appointment as instructed. Depending on the type and severity of heart failure youhave, you may need follow-within 7 days from hospital discharge. Keep appointments for checkups andlab tests that are needed to check your medicines and condition. Recognize that your health and even survival depend on you following your provider's advice. Symptoms Heart failure can cause a variety of symptoms. They include: ???Shortness of breath ???Trouble breathing at night, especially when you lie down ???Swelling in the legs and feet or in the belly (abdomen) ???Becoming easily tired ???Irregular or rapid heartbeat ???Weakness or lightheadedness ???Swelling of the neck veins It's important to know what to do if symptoms get worse or if you develop signs of worsening heart failure. Keep track of how you feel each day. Report any changes to your healthcare provider. When to call your healthcare provider Call your healthcare provider right away if you have any of these signs of worsening heart failure: ???Sudden weight gain. This means more than 2 pounds in 1 day or 5??pounds in 1 week, or whatever weight gain you were told to report by your doctor. ???Trouble breathing not related to being active ???New or increased swelling of your legs or ankles ???Swelling or pain in your abdomen ???Breathing trouble at night. This means waking up short of breath or needing more pillows to breathe. ???Frequent coughing that doesn't go away ???Feeling much more tired than usual Call 911 Call 911 right away if you have: ???Severe shortness of breath, such that you can't catch your breath even while??resting ???Severe chest pain that does not resolve with rest or nitroglycerin ???[place], foamy mucus with cough and shortness of breath ???An ongoing rapid or irregular heartbeat ???Passing out or fainting ???Stroke symptoms such as sudden numbness or weakness on one side of your face, arm, or leg or sudden confusion, trouble speaking or vision changes ?? 2509-7931 [employer]. All rights reserved. This information is not intended as a substitute for professional medical care. Always follow your healthcare professional's instructions. 01/16/2023 11:45:28 Atrial Fibrillation, Discharge Instructions Discharge Instructions for [...] be used instead of taking a medicine long distance operator. Your provider may advise other treatment choices. [...] should cut out all caffeine. ???Don't take mljx-txh-upqahfo medicines that have caffeine in them. Also don't take medicines withpseudoephedrine. ???Let your provider know what medicines you take. These include prescription and yziw-axr-kvpknqp medicines, as well as any supplements. They [...] heartbeat, or an unusually fast heartbeat ?? 2575-0842 [employer]. All rights reserved. This information is not intended as a substitute for professional medical care. Always follow your healthcare professional's instructions. compliance manager Note * Margi Calzada RN, CM: PERFORM Event Display: Progress Note - Care Manage/Social Work Authored Date: [id number] _ Patient discharged with [facility] home oxygen. * Regine Salazar CM: PERFORM Event Display: Progress Note - Care Manage/Social Work Authored Date: [id number] Per Beny Leonard, conversion process still pending. He will f/u in am. * Regine Salazar CM: PERFORM Event Display: Progress Note - Care Manage/Social Work Authored Date: [id number] Followed up with Beny Rees. He is following up with other agency. Pending call back. * Margi Calzada RN, CM: PERFORM Event Display: Progress Note - Care Manage/Social Work Authored Date: [id number] _ Per Beny, patient has a home oxygen in [place] so medicare is not approving the home oxygen herein [place]. Patient is living in [facility] for 6 months. The patient states that he has been using his 's home oxygen. The states that they do have the patient's home oxygen at their homein [place]. The will call the facility that provided the home oxygen at [place] to pick it up from their home there. Yefri, will be working with the [place] facility??and insurance tomorrow to see if they can work on getting the home oxygen approved??tomorrow for patient. * Regine Salazar CM: PERFORM Event Display: Progress Note - Care Manage/Social Work Authored Date: Spoke with Beny Rees. Pt has multiple oxygen devices dispensed in [place] and [place]. Currently under [employer] for oxygen. * Zheng NEFF CM, Margi Dennison: PERFORM Event Display: Progress Note - Care Manage/Social Work Authored Date: _ Regarding home oxygen: Spoke with patient and his at bedside regarding home oxygen. Their choice is for beny, patient choice signed by . Referral sent. CM to f/u Progress note * Josh Yanes MD: PERFORM, MODIFY Event Display: Progress Note-Physician Authored Date: Subjective Patient denies chest pain,??shortness of breath and palpitation. Brief history 77-year-old male with significant past medical history of diabetes, hypertension, hyperlipidemia, COPD??on home oxygen, CHF LVEF 30-35%, atrial fibrillation on anticoagulation amiodarone,??who presented to the hospital worsening shortness of breath. ??On initial presentation, he was hemodynamically stable. ??Chest x-ray evidence of pulm edema. ??High sensitive troponin negative x3, BNP elevated 500.?? EKG sinus rhythm, right bundle branch block, right axis deviation??no ST-T segment changes concerning for ischemia. Cardiology consult for evaluation. Chief Complaint/Reason for Consultation Chief Complaint: Shortness of breath, COPD with exacerbation, and respiratory failure. ?? Allergies Allergies ?(Active and Proposed Allergies [...] Family History No Family History documented. ? Spiritual History Comfort From Spiritual Practice: No [place]/Denomination: Orthodox ?? Objective Measurements (most recent)?? Height 160.02 cm?Johnson RN, Jeanne ??01/12 18:18 Weight 89.30 kg?Calderón PCT, Sheryl ??01/15 04:30 Body Mass Index 34.87 kg/m2?Calderón PCT, Sheryl ??01/15 04:30 Scale Type Bed scale?Calderón PCT, Sheryl ??01/15 04:30 ? Vital Signs (24 hrs) Last Charted?? Minimum?? Maximum?? Temp?? 36.5?? 01/17/2023 10:40?? L??36.4?? 01/16/2023 15:33 ?? L??36.4?? 01/16/2023 15:33?? Peripheral Pulse Rate?? 77?? 01/17/2023 10:40?? 72?? 01/16/2023 19:17 ?? 83?? 01/17/2023 07:15?? Resp Rate?? 16?? 01/17/2023 10:40?? 16?? 01/17/2023 05:19 ?? 18?? 01/16/2023 15:33?? SBP?? 107?? 01/17/2023 10:40?? 93?? 01/16/2023 15:33 ?? 122?? 01/17/2023 07:15?? DBP?? 65?? 01/17/2023 10:40?? L??58?? 01/16/2023 15:33 ?? 67?? 01/17/2023 07:15?? MAP?? 79?? 01/17/2023 10:40?? 70?? 01/16/2023 15:33 ?? 85?? 01/17/2023 07:15?? SpO2?? 96?? 01/17/2023 10:40?? 96?? 01/16/2023 15:33 ?? 98?? 01/16/2023 19:17?? O2 Flow Rate?? on 2 ? l/min?? on 2 ? l/min?? on 2 ? l/min O2 Therapy?? Nasal cannula?? Nasal cannula?? Nasal cannula ? I&O 24 Hour Total? 01/12 19:06 01/17 07:00 01/16 07:00 01/15 07:00 01/14 07:00 ?? 01/17 13:43 01/17 13:43 01/17 06:59 01/16 06:59 01/15 06:59 Intake ? 2740 ?100 ?400 ?600 ?820 Output ? 9100 ?175 ?700 ? 1700 ? 1050 Net Total ?-6360 ?-75 ? -300 ?-1100 ? -230 Urine Count ?1 ?1 ?0 ?0 ?0 Stool Count ?1 ?0 ?0 ?0 ?1 ? Physical Exam General: Awake, Alert, No acute distress. Appearance: Well nourished. Behavior: Appropriate. Eye: Normal conjunctiva. Anicteric sclerae Head: Normocephalic.?? Nontraumatic Neck:?trachea midline Respiratory: Respiration??even and unlabored. O2 2 L NC Cardiovascular: Normal rate, Regular rhythm Gastrointestinal: Non-tender, Non distended. Musculoskeletal: No deformity. Extremities: No pedal edema. Skin: Warm, and Dry Neurologic: Speech clear and coherent. Alert, Oriented. Psychiatric: Cooperative, Appropriate mood & affect. _ Home Medications acetaZOLAMIDE (acetaZOLAMIDE 250 mg oral tablet)?250?Milligram?1?Tabs?By Mouth?Every 6 hours?for 5?Days amiodarone (amiodarone 200 mg oral tablet)?100?Milligram?By Mouth?Daily?for 30?Days apixaban (apixaban 5 mg oral tablet)?5?Milligram?1?Tabs?By Mouth?2 Times a Day ascorbic acid (ascorbic acid 500 mg oral tablet)?500?Milligram?1?Tabs?By Mouth?2 Times a Day aspirin (aspirin 81 mg oral tablet, chewable)?81?Milligram?1?Tabs?Chewed?Daily atorvastatin (atorvastatin 40 mg oral tablet)?40?Milligram?1?Tabs?By Mouth?at Bedtime cyanocobalamin (cyanocobalamin 1000 mcg/mL injectable solution)?1,000?Microgram?Intramuscular?Every Sunday dapagliflozin (dapagliflozin 10 mg oral tablet)?10?Milligram?1?Tabs?By Mouth?Daily docusate (docusate sodium 100 mg oral tablet)?100?Milligram?1?Tabs?By Mouth?2 Times a Day finasteride (Proscar 5 mg oral tablet)?5?Milligram?1?Tabs?By Mouth?Daily FLUoxetine (PROzac 20 mg oral capsule)?20?Milligram?1?Capsules?By Mouth?Daily furosemide (furosemide 40 mg oral tablet)?40?Milligram?1?Tabs?By Mouth?2 Times a Day?Administer at 9 am and 2 pm?for 30?Days guaifenesin-dextromethorphan (guaifenesin-dextromethorphan 200 mg-20 mg/10 mL oral liquid)?10?Milliliter?By Mouth?Every 4 hours?as needed?Cough?for 10?Days levothyroxine (Synthroid 25 mcg (0.025 mg) oral tablet)?25?Microgram?1?Tabs?By Mouth?Daily loratadine (loratadine 10 mg oral tablet)?10?Milligram?1?Tabs?By Mouth?Daily metFORMIN (metFORMIN 500 mg oral tablet)?500?Milligram?1?Tabs?By Mouth?Daily?as needed?Blood Glucose (please specify)?for blood sugar over 200 metoprolol (Metoprolol Succinate ER 50 mg oral tablet, extended release)?50?Milligram?1?Tabs?By Mouth?at Bedtime multivitamin with minerals (Centrum Silver oral tablet)?1?Tabs?By Mouth?2 Times a Day pantoprazole (Protonix 20 mg oral enteric coated tablet)?20?Milligram?1?Tabs?By Mouth?Daily potassium chloride (Potassium Chloride (Eqv-K-Tab) 20 mEq oral tablet, extended release)?20?Milliequivalent?1?Tabs?By Mouth?2 Times a Day?for 30?Days potassium chloride (Potassium Chloride (Eqv-K-Tab) 20 mEq oral tablet, extended release)?20?Milliequivalent?1?Tabs?By Mouth?Daily?for 30?Days sacubitril-valsartan (Entresto 24 mg-26 mg oral tablet)?1?Tabs?By Mouth?2 Times a Day spironolactone (spironolactone 25 mg oral tablet)?25?Milligram?1?Tabs?By Mouth?Daily tamsulosin (tamsulosin 0.4 mg oral capsule)?0.4?Milligram?1?Capsules?By Mouth?2 Times a Day ? Inpatient Medications Medications (24) Active SCHEDULED: (18) acetaZOLAMIDE 250 mg Tab (acetaZOLAMIDE) ??250 mg 1 Tabs, Oral, q6H amiodarone 200 mg Tab (amiodarone) ??100 mg 0.5 Tabs, Oral, Daily apixaban 5 mg Tab (apixaban) ??5 mg 1 Tabs, Oral, BID ascorbic acid 500 mg Tab (Vitamin C) ??500 mg 1 Tabs, Oral, BID aspirin 81 mg Chew Tab (aspirin) ??81 mg 1 Tabs, Chewed, Daily atorvastatin 40 mg Tab (atorvastatin) ??40 mg 1 Tabs, Oral, qHS cyanocobalamin 1000 mcg/mL INJ SOLN (cyanocobalamin) ??1,000 mcg 1 mL, IntraMuscular, qMonday dapagliflozin 10 mg Tab (Farxiga) ??10 mg 1 Tabs, Oral, Daily docusate sodium 100 mg Cap (docusate sodium) ??100 mg 1 Caps, Oral, BID finasteride 5 mg Tab (Proscar) ??5 mg 1 Tabs, Oral, Daily FLUoxetine 20 mg Cap (PROzac) ??20 mg 1 Caps, Oral, Daily Hypoglycemia Protocol Advisor ??Protocol, N/A, Daily insulin aspart NovoLOG 1 unit/ 0.01mL syringe (insulin aspart NovoLog correctional scale Low) ??2-8units, SubCutaneous, Before Meals and HS levothyroxine 25 mcg (0.025 mg) Tab (Synthroid) ??25 mcg 1 Tabs, Oral, Daily loratadine 10 mg Tab (loratadine) ??10 mg 1 Tabs, Oral, Daily metoprolol succinate 50 mg XL Tab (Metoprolol Succinate ER) ??50 mg 1 Tabs, Oral, qHS sacubitril-valsartan 24 mg-26 mg Tab (Entresto 24 mg-26 mg oral tablet) ??1 Tabs, Oral, BID tamsulosin 0.4 mg SA Cap (Flomax) ??0.4 mg 1 Caps, Oral, BID CONTINUOUS: (0) PRN: (6) acetaminophen 325 mg Tab (Tylenol) ??650 mg 2 Tabs, Oral, q4H dextromethorphan-guaiFENesin 20 mg-200 mg/10 mL (Robitussin DM) ??10 mL, Oral, q4H docusate sodium 100 mg Cap (Colace) ??100 mg 1 Caps, Oral, BID ipratropium 0.5mg Inh Janet 2.5 mL (ipratropium 0.02% inh janet) ??0.5 mg 2.5 mL, Inhalation, RT q6H ondansetron 4 mg/2 mL vial (Zofran) ??4 mg 2 mL, IV Push, q6H ondansetron 4 mg/2 mL vial (Zofran) ??4 mg 2 mL, IV Push, q4H ? 72 hour Antibiotic History No qualifying data available... ?? Results Recent Labs Cardiac BNP 49.7 pg/mL (Normal)?? 01/17/2023 10:46 ?? General Chemistry Glucose Level 142 mg/dL (High)?? 01/17/2023 10:46 POC Glucose 133 mg/dL (High)?? 01/17/2023 10:43 Sodium 132 mmol/L (Low)?? 01/17/2023 10:46 Potassium 3.1 mmol/L (Low)?? 01/17/2023 10:46 Chloride 99 mmol/L (Normal)?? 01/17/2023 10:46 CO2 28 mmol/L (Normal)?? 01/17/2023 10:46 Anion Gap 5 mmol/L (Normal)?? 01/17/2023 10:46 BUN 30 mg/dL (High)?? 01/17/2023 10:46 Creatinine 1.2 mg/dL (Normal)?? 01/17/2023 10:46 BUN/Creat Ratio 25.00 Ratio (High)?? 01/17/2023 10:46 Calcium 9.9 mg/dL (Normal)?? 01/17/2023 10:46 Mg Lvl 2.3 mg/dL (Normal)?? 01/17/2023 10:46 Phosphorus 4.5 mg/dL (Normal)?? 01/17/2023 10:46 eGFR Cr 62 mL/min/1.73m2 (N/A)?? 01/17/2023 10:46 eGFR Pediatric Not Reported mL/min/1.73m2 (N/A)?? 01/17/2023 10:46 MAR Glucose Result 133 ()?? 01/17/2023 11:30 ?? General Hematology WBC 8.90 x10e3/mcL (Normal)?? 01/16/2023 02:56 RBC 4.58 x10e6/mcL (Low)?? 01/16/2023 02:56 Hgb 15.20 gm/dL (Normal)?? 01/16/2023 02:56 Hct 44.00 % (Normal)?? 01/16/2023 02:56 MCV 96.2 Femtoliters (Normal)?? 01/16/2023 02:56 MCH 33.20 pg (High)?? 01/16/2023 02:56 MCHC 34.50 gm/dL (Normal)?? 01/16/2023 02:56 RDW-CV 14.40 % (Normal)?? 01/16/2023 02:56 RDW-SD 49.00 Femtoliters (High)?? 01/16/2023 02:56 Plt 233 x10e3/mcL (Normal)?? 01/16/2023 02:56 MPV 8.20 Femtoliters (Normal)?? 01/16/2023 02:56 Neut % Auto 61.1 % (Normal)?? 01/16/2023 02:56 Lymph % Auto 21.2 % (Low)?? 01/16/2023 02:56 Payne % Auto 14.4 % (High)?? 01/16/2023 02:56 Eos % Auto 3.0 % (Normal)?? 01/16/2023 02:56 Baso % Auto 0.3 % (Normal)?? 01/16/2023 02:56 Neut # Auto 5.4 x10e3/mcL (Normal)?? 01/16/2023 02:56 Lymph # Auto 1.9 x10e3/mcL (Normal)?? 01/16/2023 02:56 Payne # Auto 1.3 x10e3/mcL (Normal)?? 01/16/2023 02:56 Eos # Auto 0.3 x10e3/mcL (Normal)?? 01/16/2023 02:56 Baso # Auto 0.0 x10e3/mcL (Normal)?? 01/16/2023 02:56 ? CBC, BMP, Coagulation Trend (last 4 resulted) WBC 8.90 ?? 01/16/2023 ??02:56 9.10 ?? 01/14/2023 ??03:27 ? Hgb 15.20 ?? 01/16/2023 ??02:56 14.20 ?? 01/14/2023 ??03:27 ? Hct 44.00 ?? 01/16/2023 ??02:56 41.60 ?? 01/14/2023 ??03:27 ? Baso # Auto 0.0 ?? 01/16/2023 ??02:56 0.0 ?? 01/14/2023 ??03:27 ? Baso % Auto 0.3 ?? 01/16/2023 ??02:56 0.4 ?? 01/14/2023 ??03:27 ? Eos # Auto 0.3 ?? 01/16/2023 ??02:56 0.2 ?? 01/14/2023 ??03:27 ? Eos % Auto 3.0 ?? 01/16/2023 ??02:56 2.7 ?? 01/14/2023 ??03:27 ? Lymph # Auto 1.9 ?? 01/16/2023 ??02:56 1.7 ?? 01/14/2023 ??03:27 ? Lymph % Auto 21.2 ??L?? 01/16/2023 ??02:56 18.7 ??L?? 01/14/2023 ??03:27 ? Payne # Auto 1.3 ?? 01/16/2023 ??02:56 1.2 ?? 01/14/2023 ??03:27 ? Payne % Auto 14.4 ??H?? 01/16/2023 ??02:56 13.6 ?? 01/14/2023 ??03:27 ? Neut # Auto 5.4 ?? 01/16/2023 ??02:56 5.9 ?? 01/14/2023 ??03:27 ? Neut % Auto 61.1 ?? 01/16/2023 ??02:56 64.6 ?? 01/14/2023 ??03:27 ? Plt 233 ?? 01/16/2023 ??02:56 221 ?? 01/14/2023 ??03:27 ? Glucose Level 142 ??H?? 01/17/2023 ??10:46 137 ??H?? 01/16/2023 ??02:56 186 ??H?? 01/14/2023 ??03:27 137 ??H?? 01/13/2023 ??04:22 Sodium 132 ??L?? 01/17/2023 ??10:46 133 ??L?? 01/16/2023 ??02:56 136 ?? 01/14/2023 ??03:27 137 ?? 01/13/2023 ??04:22 Potassium 3.1 ??L?? 01/17/2023 ??10:46 3.1 ??L?? 01/17/2023 ??05:18 3.4 ??L?? 01/16/2023 ??02:56 4.6 ?? 01/15/2023 ??04:29 Chloride 99 ?? 01/17/2023 ??10:46 97 ??L?? 01/16/2023 ??02:56 97 ??L?? 01/14/2023 ??03:27 99 ?? 01/13/2023 ??04:22 CO2 28 ?? 01/17/2023 ??10:46 32 ?? 01/16/2023 ??02:56 36 ??H?? 01/14/2023 ??03:27 37 ??H?? 01/13/2023 ??04:22 BUN 30 ??H?? 01/17/2023 ??10:46 24 ??H?? 01/16/2023 ??02:56 20 ??H?? 01/14/2023 ??03:27 13 ?? 01/13/2023 ??04:22 Creatinine 1.2 ?? 01/17/2023 ??10:46 1.2 ?? 01/16/2023 ??02:56 1.2 ?? 01/14/2023 ??03:27 1.0 ?? 01/13/2023 ??04:22 BUN/Creat Ratio 25.00 ??H?? 01/17/2023 ??10:46 20.00 ?? 01/16/2023 ??02:56 16.67 ?? 01/14/2023 ??03:27 13.00 ?? 01/13/2023 ??04:22 Mg Lvl 2.3 ?? 01/17/2023 ??10:46 2.1 ?? 01/16/2023 ??02:56 2.0 ?? 01/14/2023 ??03:27 2.2 ?? 01/13/2023 ??04:22 Phosphorus 4.5 ?? 01/17/2023 ??10:46 4.6 ?? 01/16/2023 ??02:56 4.1 ?? 01/14/2023 ??03:27 ?? Calcium 9.9 ?? 01/17/2023 ??10:46 9.8 ?? 01/16/2023 ??02:56 9.7 ?? 01/14/2023 ??03:27 9.4 ?? 01/13/2023 ??04:22 ? Cardiology Labs BNP: 49.7 pg/mL (01/17/23 10:46:00) BNP: 69.5 pg/mL (01/16/23 02:56:00) BNP:??235 pg/mL??High (01/14/23 03:27:00) Troponin TNIH: 18.8 ng/L (01/13/23 00:02:00) Troponin TNIH: 20.7 ng/L (01/12/23 21:08:00) Troponin TNIH: 21.5 ng/L (01/12/23 18:41:00) ? Images EKG sinus rhythm, right bundle branch block, right axis deviation??no ST-T segment changes concerning for ischemia. ?? Echocardiogram on 01/04/23 Summary: 1. Left ventricular ejection fraction, by visual estimation, is 30 to 35%. 2. Moderately dilated left atrium. 3. Left atrial appendage visualized in multiple angles and no thrombus seen. 4. Small pericardial effusion, as described above. 5. Moderate mitral valve regurgitation. 6. Mild-moderate tricuspid regurgitation. 7. Moderate aortic valve sclerosis is present, with no evidence of aortic valve stenosis. 8. Non coronary cusp thickened. 9. The pulmonic valve is trileaflet, without evidence of stenosis or insufficiency. 10. Small plaque involving the descending aorta. 11. Saline contrast bubble study was negative, with no evidence of any intracardiac shunt. 12. Lipomatous hypertrophy of the atrial septum. ? CT CHEST WITHOUT CONTRAST: 01/13/23 ?? RADIATION DOSE TECHNIQUE: Automated exposure control ?? FINDINGS: ?? Small pleural effusions are present with nonspecific scarring and atelectasis. No specific consolidative airspace disease. No gross pulmonary nodule or mass. ?? The heart size is mildly enlarged. Small pericardial effusion is present. Atherosclerotic disease involves the aorta and its major branches. ?? No significant thoracic adenopathy. ?? The upper intra-abdominal organs are not imaged in their entirety. ??No gross abnormality is seen. ?? The bones are osteopenic with generalized degenerative changes. ? IMPRESSION: ?? Small pleural effusions with nonspecific scarring and atelectasis. See above for more details. ? CHEST X-RAY, 1 VIEW 01/12/23 ?? HISTORY: Shortness of Breath (SOB) ?? COMPARISON: 01/04/2023 ?? Support lines: ? Blunted right costophrenic angle. ??Prominence of the interstitial lung markings. ??Bilateral airspace opacities. Partial obscuration of the right hemidiaphragm. ?? Pneumothorax: Absent Trachea: within normal limits. Cardiac silhouette: enlarged. Bony structures: Degenerative changes involving the spine and shoulders. Visualized upper abdomen: Within normal limits ? IMPRESSION: ?? Diffuse bilateral lung opacities consistent with pulmonary edema, small right pleural effusion and right basilar atelectasis ?? . ??Pneumonia cannot be excluded. Clinical correlation is recommended. ?? Enlarged cardiac silhouette ? BILATERAL VENOUS DUPLEX ULTRASOUND OF THE LOWER EXTREMITIES 01/03/23 ? Static ultrasound images with Doppler of the bilateral lower extremity venous system demonstrates no evidence of deep venous thrombosis. ??Normal augmentation and compression was demonstrated. ? IMPRESSION: ?? NEGATIVE DEEP VENOUS THROMBOSIS STUDY. ?? Assessment/Plan Diagnoses 1. ??Acute combined systolic and diastolic CHF, NYHA class 3 ??(I50.41) 2. ??Acute cardiac pulmonary edema ??(I50.1) 3. ??Diabetes ??(E11.9) 4. ??Hyperlipemia ??(E78.5) 5. ??Atrial fibrillation ??(I48.91) 6. ??HTN (hypertension) ??(I10) 7. ??CAD in [place] artery ??(I25.10) 8. ??Presence of stent in coronary artery ??(Z95.5) ? acute??on chronic heart failure exacerbation. - BNP 235->69->49 ?Continue Entresto low-dose - Continue??acetazolamide??250 mg daily for total 5 days ??? Continue home metoprolol 50 mg XL daily - Continue farxiga 10 mg daily ?Strict I's and O's, daily weight, keep K greater than 4 mag??greater than 2 ?Continue amiodarone??100 mg??mg p.o. daily, continue Eliquis 5 mg p.o. twice daily for CVA??prophylaxis ?Continue high intensity statin ?Continue management of COPD per primary team ?Continue management of diabetes and hypothyroidism per primary team ?? Patient may be discharged home??from cardiology standpoint review.?? He needs to??have cardiac rehab??as outpatient.?? Outpatient follow-up with cardiology??this Sunday??at 2:30 PM.?? When he comes to clinic we will order labs??and review his medications??tolerance.?? He will need home oxygen. ? Electronically Signed By: Josh Yanes MD On: 01.17.2023 21:02 NET C DEVELOPER * Ranjit MODI, Ashutosh Quiroga: PERFORM Event Display: Progress Note-Physician Authored Date: Subjective He is laying in bed comfortable not in any distress , on oxygen 2 L via nasal cannula he feels finewith no oxygen on and his O2 saturation is 97%, he is less dyspneic denies any chest pain denies any cough expectoration, arterial blood gases on room??pH 7.48 PCO2 44 PO2??51??, home oxygen beingv arranged patient use home CPAP machine??patient has been on??bumex 1 mg twice ,?? Diamox 125 daily ? Admission data 77/M with COPD previously on Home O2 for hypoxemic resp failure. ??He uses home oxygen his O2 was removed 3 months ago??obstructive sleep apnea on home CPAP??,?congestive heart failure??reported ejection fraction of 35%,?? Non insulin Rxed DM2, HTN. HLD. Hypothyroidism. BPH. Depression , Hx Paroxysmal A Fib, recent cardio version??and recent hospitalization??he was admitted with shortness of breath and??acute combined systolic and diastolic congestive heart failure.?? He was noted to have hypoxemia on room air and pulmonary evaluation has been requested.?? He states he was prescribed oxygen several years ago for COPD,??but then he got better??and the oxygen was removed.?? Over the past2 or 3 months, he has noted progressive dyspnea on exertion, which became significantly worse??whenhe came to the hospital.?? He also had palpitations??and chest pain.?? On admission, he had atrial fibrillation with rapid ventricular response.?? Currently, he feels significantly better.?? He reports??dyspnea on exertion, but denies cough or sputum production at this time. ??He denies wheezing aswell. ?? 77 years old male with a history of chronic hypoxemic respiratory failure.?? He is on oxygen at home,??but is using??his 's oxygen machine.?? He has a history of COPD as well.? Review of Systems Review of Systems: Constitutional:??no fever, chills, ENT :??no sneezing, congestion, runny nose or sore throat. Skin: No rash or itching. Cardiovascular: see above Respiratory: see above Gastrointestinal: No?? nausea, vomiting or diarrhea. No abdominal pain Genitourinary: No burning micturition. No urinary frequency or incontinence. Neurologic: No headache, dizziness ,weakness, numbness Musculoskeletal: No muscle pain,joint pain or stiffness. Hematologic: No bleeding or bruising. Psychiatric: No depression or anxiety. Allergies Allergies ?(Active and Proposed Allergies Only) [...] documented. ? Objective Measurements (most recent)?? Height 160.02 cm?Alex RN, Jeanne ??01/12 18:18 Weight 89.30 kg?Calderón PCT, Sheryl ??01/15 04:30 Body Mass Index 34.87 kg/m2?Calderón PCT, Sheryl ??01/15 04:30 Scale Type Bed scale?Calderón PCT, Sheryl ??01/15 04:30 ? Vital Signs (24 hrs) Last Charted?? Minimum?? Maximum?? Temp?? 36.5?? 01/17/2023 07:15?? L??36.3?? 01/16/2023 10:55 ?? L??36.3?? 01/16/2023 10:55?? Peripheral Pulse Rate?? 83?? 01/17/2023 07:15?? 66?? 01/16/2023 10:55 ?? 83?? 01/17/2023 07:15?? Resp Rate?? 16?? 01/17/2023 07:15?? 16?? 01/17/2023 05:19 ?? 18?? 01/16/2023 10:55?? SBP?? 122?? 01/17/2023 07:15?? 93?? 01/16/2023 15:33 ?? 122?? 01/17/2023 07:15?? DBP?? 67?? 01/17/2023 07:15?? L??56?? 01/16/2023 10:55 ?? 67?? 01/17/2023 07:15?? MAP?? 85?? 01/17/2023 07:15?? 70?? 01/16/2023 15:33 ?? 85?? 01/17/2023 07:15?? SpO2?? 97?? 01/17/2023 07:15?? 96?? 01/16/2023 15:33 ?? 100?? 01/16/2023 10:55?? O2 Flow Rate?? on 2 ? l/min?? on 2 ? l/min?? on 2 ? l/min O2 Therapy?? Nasal cannula?? Nasal cannula?? Nasal cannula ? I&O 24 Hour Total? 01/12 19:06 01/17 07:00 01/16 07:00 01/15 07:00 01/14 07:00 ?? 01/17 10:15 01/17 10:15 01/17 06:59 01/16 06:59 01/15 06:59 Intake ? 2640 ?0 ?400 ?600 ?820 Output ? 9100 ?175 ?700 ? 1700 ? 1050 Net Total ?-6460 ? -175 ? -300 ?-1100 ? -230 Stool Count ?1 ?0 ?0 ?0 ?1 ? Physical Exam General: Obesity BMI 34.1??alert, in no acute cardiopulmonary distress. Eyes:??Normal conjunctiva Ear, Nose and Throat: Normal nasal mucosa??, throat no erythema, ??oropharynx clear, Neck: Supple, no jugular venous distention trachea central thyroid not enlarged no cervical adenopathy,??large tongue with narrow posterior pharynx Respiratory: Decreased breath sounds bilaterally??symmetrical expansion??,normal percussion??,clearto auscultation . No wheezing, rales or rhonchi.??not Using accessory muscles, 10 thick neck Cardiovascular: Heart sounds Regular rate and rhythm, no murmurs,?? gallops. ??Good peripheral pulses??and perfusion Gastrointestinal: Abdomen soft, non-tender, non-distended. Normal bowel sounds. liver spleen not palpable. Genitourinary: No costovertebral angle tenderness. Neurologic: Cranial nerves intact. No focal neurological deficits. Moves all extremities spontaneously Skin: No rashes or lesions. No petechiae or purpura. No edema. Musculoskeletal: No cyanosis or clubbing. No gross deformities. . Lymphatics: No??adenopathy or tender lymph nodes Psychiatric : Cooperative with appropriate mood and affect _ Home Medications acetaZOLAMIDE (acetaZOLAMIDE 250 mg oral tablet)?250?Milligram?1?Tabs?By Mouth?Every 6 hours?for 5?Days amiodarone (amiodarone 200 mg oral tablet)?100?Milligram?By Mouth?Daily?for 30?Days apixaban (apixaban 5 mg oral tablet)?5?Milligram?1?Tabs?By Mouth?2 Times a Day ascorbic acid (ascorbic acid 500 mg oral tablet)?500?Milligram?1?Tabs?By Mouth?2 Times a Day aspirin (aspirin 81 mg oral tablet, chewable)?81?Milligram?1?Tabs?Chewed?Daily atorvastatin (atorvastatin 40 mg oral tablet)?40?Milligram?1?Tabs?By Mouth?at Bedtime cyanocobalamin (cyanocobalamin 1000 mcg/mL injectable solution)?1,000?Microgram?Intramuscular?Every Sunday cyclobenzaprine (cyclobenzaprine 10 mg oral tablet)?10?Milligram?1?Tabs?By Mouth?at Bedtime dapagliflozin (dapagliflozin 10 mg oral tablet)?10?Milligram?1?Tabs?By Mouth?Daily docusate (docusate sodium 100 mg oral tablet)?100?Milligram?1?Tabs?By Mouth?2 Times a Day finasteride (Proscar 5 mg oral tablet)?5?Milligram?1?Tabs?By Mouth?Daily FLUoxetine (PROzac 20 mg oral capsule)?20?Milligram?1?Capsules?By Mouth?Daily furosemide (furosemide 40 mg oral tablet)?40?Milligram?1?Tabs?By Mouth?2 Times a Day?Administer at 9 am and 2 pm?for 30?Days guaifenesin-dextromethorphan (guaifenesin-dextromethorphan 200 mg-20 mg/10 mL oral liquid)?10?Milliliter?By Mouth?Every 4 hours?as needed?Cough?for 10?Days levothyroxine (Synthroid 25 mcg (0.025 mg) oral tablet)?25?Microgram?1?Tabs?By Mouth?Daily loratadine (loratadine 10 mg oral tablet)?10?Milligram?1?Tabs?By Mouth?Daily metFORMIN (metFORMIN 500 mg oral tablet)?500?Milligram?1?Tabs?By Mouth?Daily?as needed?Blood Glucose (please specify)?for blood sugar over 200 metoprolol (Metoprolol Succinate ER 50 mg oral tablet, extended release)?50?Milligram?1?Tabs?By Mouth?at Bedtime multivitamin with minerals (Centrum Silver oral tablet)?1?Tabs?By Mouth?2 Times a Day pantoprazole (Protonix 20 mg oral enteric coated tablet)?20?Milligram?1?Tabs?By Mouth?Daily potassium chloride (Potassium Chloride (Eqv-K-Tab) 20 mEq oral tablet, extended release)?20?Milliequivalent?1?Tabs?By Mouth?2 Times a Day?for 30?Days sacubitril-valsartan (Entresto 24 mg-26 mg oral tablet)?1?Tabs?By Mouth?2 Times a Day spironolactone (spironolactone 25 mg oral tablet)?25?Milligram?1?Tabs?By Mouth?Daily tamsulosin (tamsulosin 0.4 mg oral capsule)?0.4?Milligram?1?Capsules?By Mouth?2 Times a Day ? Inpatient Medications Medications (24) Active SCHEDULED: (18) acetaZOLAMIDE 250 mg Tab (acetaZOLAMIDE) ??250 mg 1 Tabs, Oral, q6H amiodarone 200 mg Tab (amiodarone) ??100 mg 0.5 Tabs, Oral, Daily apixaban 5 mg Tab (apixaban) ??5 mg 1 Tabs, Oral, BID ascorbic acid 500 mg Tab (Vitamin C) ??500 mg 1 Tabs, Oral, BID aspirin 81 mg Chew Tab (aspirin) ??81 mg 1 Tabs, Chewed, Daily atorvastatin 40 mg Tab (atorvastatin) ??40 mg 1 Tabs, Oral, qHS cyanocobalamin 1000 mcg/mL INJ SOLN (cyanocobalamin) ??1,000 mcg 1 mL, IntraMuscular, qMonday dapagliflozin 10 mg Tab (Farxiga) ??10 mg 1 Tabs, Oral, Daily docusate sodium 100 mg Cap (docusate sodium) ??100 mg 1 Caps, Oral, BID finasteride 5 mg Tab (Proscar) ??5 mg 1 Tabs, Oral, Daily FLUoxetine 20 mg Cap (PROzac) ??20 mg 1 Caps, Oral, Daily Hypoglycemia Protocol Advisor ??Protocol, N/A, Daily insulin aspart NovoLOG 1 unit/ 0.01mL syringe (insulin aspart NovoLog correctional scale Low) ??2-8units, SubCutaneous, Before Meals and HS levothyroxine 25 mcg (0.025 mg) Tab (Synthroid) ??25 mcg 1 Tabs, Oral, Daily loratadine 10 mg Tab (loratadine) ??10 mg 1 Tabs, Oral, Daily metoprolol succinate 50 mg XL Tab (Metoprolol Succinate ER) ??50 mg 1 Tabs, Oral, qHS sacubitril-valsartan 24 mg-26 mg Tab (Entresto 24 mg-26 mg oral tablet) ??1 Tabs, Oral, BID tamsulosin 0.4 mg SA Cap (Flomax) ??0.4 mg 1 Caps, Oral, BID CONTINUOUS: (0) PRN: (6) acetaminophen 325 mg Tab (Tylenol) ??650 mg 2 Tabs, Oral, q4H dextromethorphan-guaiFENesin 20 mg-200 mg/10 mL (Robitussin DM) ??10 mL, Oral, q4H docusate sodium 100 mg Cap (Colace) ??100 mg 1 Caps, Oral, BID ipratropium 0.5mg Inh Janet 2.5 mL (ipratropium 0.02% inh janet) ??0.5 mg 2.5 mL, Inhalation, RT q6H ondansetron 4 mg/2 mL vial (Zofran) ??4 mg 2 mL, IV Push, q6H ondansetron 4 mg/2 mL vial (Zofran) ??4 mg 2 mL, IV Push, q4H ? 72 hour Antibiotic History No qualifying data available... ?? Results CBC, BMP, Coagulation Trend (last 4 resulted) WBC 8.90 ?? 01/16/2023 ??02:56 9.10 ?? 01/14/2023 ??03:27 ? Hgb 15.20 ?? 01/16/2023 ??02:56 14.20 ?? 01/14/2023 ??03:27 ? Hct 44.00 ?? 01/16/2023 ??02:56 41.60 ?? 01/14/2023 ??03:27 ? Baso # Auto 0.0 ?? 01/16/2023 ??02:56 0.0 ?? 01/14/2023 ??03:27 ? Baso % Auto 0.3 ?? 01/16/2023 ??02:56 0.4 ?? 01/14/2023 ??03:27 ? Eos # Auto 0.3 ?? 01/16/2023 ??02:56 0.2 ?? 01/14/2023 ??03:27 ? Eos % Auto 3.0 ?? 01/16/2023 ??02:56 2.7 ?? 01/14/2023 ??03:27 ? Lymph # Auto 1.9 ?? 01/16/2023 ??02:56 1.7 ?? 01/14/2023 ??03:27 ? Lymph % Auto 21.2 ??L?? 01/16/2023 ??02:56 18.7 ??L?? 01/14/2023 ??03:27 ? Payne # Auto 1.3 ?? 01/16/2023 ??02:56 1.2 ?? 01/14/2023 ??03:27 ? Payne % Auto 14.4 ??H?? 01/16/2023 ??02:56 13.6 ?? 01/14/2023 ??03:27 ? Neut # Auto 5.4 ?? 01/16/2023 ??02:56 5.9 ?? 01/14/2023 ??03:27 ? Neut % Auto 61.1 ?? 01/16/2023 ??02:56 64.6 ?? 01/14/2023 ??03:27 ? Plt 233 ?? 01/16/2023 ??02:56 221 ?? 01/14/2023 ??03:27 ? Glucose Level 137 ??H?? 01/16/2023 ??02:56 186 ??H?? 01/14/2023 ??03:27 137 ??H?? 01/13/2023 ??04:22 ?? Sodium 133 ??L?? 01/16/2023 ??02:56 136 ?? 01/14/2023 ??03:27 137 ?? 01/13/2023 ??04:22 ?? Potassium 3.1 ??L?? 01/17/2023 ??05:18 3.4 ??L?? 01/16/2023 ??02:56 4.6 ?? 01/15/2023 ??04:29 3.8 ?? 01/14/2023 ??03:27 Chloride 97 ??L?? 01/16/2023 ??02:56 97 ??L?? 01/14/2023 ??03:27 99 ?? 01/13/2023 ??04:22 ?? CO2 32 ?? 01/16/2023 ??02:56 36 ??H?? 01/14/2023 ??03:27 37 ??H?? 01/13/2023 ??04:22 ?? BUN 24 ??H?? 01/16/2023 ??02:56 20 ??H?? 01/14/2023 ??03:27 13 ?? 01/13/2023 ??04:22 ?? Creatinine 1.2 ?? 01/16/2023 ??02:56 1.2 ?? 01/14/2023 ??03:27 1.0 ?? 01/13/2023 ??04:22 ?? BUN/Creat Ratio 20.00 ?? 01/16/2023 ??02:56 16.67 ?? 01/14/2023 ??03:27 13.00 ?? 01/13/2023 ??04:22 ?? Mg Lvl 2.1 ?? 01/16/2023 ??02:56 2.0 ?? 01/14/2023 ??03:27 2.2 ?? 01/13/2023 ??04:22 ?? Phosphorus 4.6 ?? 01/16/2023 ??02:56 4.1 ?? 01/14/2023 ??03:27 ? Calcium 9.8 ?? 01/16/2023 ??02:56 9.7 ?? 01/14/2023 ??03:27 9.4 ?? 01/13/2023 ??04:22 ? Cardiology Labs BNP: 69.5 pg/mL (01/16/23 02:56:00) BNP:??235 pg/mL??High (01/14/23 03:27:00) BNP:??505 pg/mL??Critical (01/13/23 04:22:00) Troponin TNIH: 18.8 ng/L (01/13/23 00:02:00) Troponin TNIH: 20.7 ng/L (01/12/23 21:08:00) Troponin TNIH: 21.5 ng/L (01/12/23 18:41:00) ? Assessment/Plan Diagnoses ?? Acute on chronic??respiratory failure , PO2 on room air is 51 Acute on chronic congestive heart failure with reduced ejection fraction 30-35 Atrial fibrillation with rapid ventricular response, electrical??cardioversion??January 04, 2022 Chronic obstructive pulmonary disease former heavy smoker Obstructive sleep apnea??and hypersomnia on on home CPAP Adult BMI 34.0-34.9 kg/sq m BPH Hypothyroid diabetes mellitus? Plan : ?? Oxygen arrangement is in progress CPAP??12 cm H2O nighttime and as needed??daytime Continue??carvedilol and and the Bumex he will be given Diamox for 4 days bronchodilators only on as needed basis albuterol 1.25 mg every 8 hours Continue??DVT prophylaxis with Lovenox Home once home O2 is arranged ? Electronically Signed By: Ashutosh Church MD On: 01.17.2023 10:17 NET C DEVELOPER * Josh Yanes MD: MODIFY, MODIFY, PERFORM, MODIFY, MODIFY, MODIFY Event Display: Progress Note-Physician Authored Date: Subjective Patient denies chest pain. SOB improved Brief history 77-year-old male with significant past medical history of diabetes, hypertension, hyperlipidemia, COPD??on home oxygen, CHF LVEF 30-35%, atrial fibrillation on anticoagulation amiodarone,??who presented to the hospital worsening shortness of breath. ??On initial presentation, he was hemodynamically stable. ??Chest x-ray evidence of pulm edema. ??High sensitive troponin negative x3, BNP elevated 500.?? EKG sinus rhythm, right bundle branch block, right axis deviation??no ST-T segment changes concerning for ischemia. Cardiology consult for evaluation. Chief Complaint/Reason for Consultation Chief Complaint: Shortness of breath, COPD with exacerbation, and respiratory failure. ?? Allergies Allergies ?(Active and Proposed Allergies [...] Family History No Family History documented. ? Spiritual History Comfort From Spiritual Practice: No Brina/Denomination: Orthodox ?? Objective Measurements (most recent)?? Height 160.02 cm?lAex RN, Jeanne ??01/12 18:18 Weight 89.30 kg?Calderón PCT, Sheryl ??01/15 04:30 Body Mass Index 34.87 kg/m2?Calderón PCT, Sheryl ??01/15 04:30 Scale Type Bed scale?Calderón PCT, Sheryl ??01/15 04:30 ? Vital Signs (24 hrs) Last Charted?? Minimum?? Maximum?? Temp?? L??36.4?? 01/16/2023 15:33?? L??36.3?? 01/15/2023 23:37 ?? L??36.3?? 01/15/2023 23:37?? Peripheral Pulse Rate?? 72?? 01/16/2023 19:17?? 64?? 01/15/2023 23:37 ?? 74?? 01/16/2023 15:33?? Resp Rate?? 18?? 01/16/2023 19:17?? 18?? 01/15/2023 23:37 ?? 18?? 01/15/2023 23:37?? SBP?? 99?? 01/16/2023 19:17?? 93?? 01/16/2023 15:33 ?? 123?? 01/15/2023 23:37?? DBP?? 60?? 01/16/2023 19:17?? L??56?? 01/16/2023 10:55 ?? 74?? 01/15/2023 23:37?? MAP?? 73?? 01/16/2023 19:17?? 70?? 01/16/2023 15:33 ?? 90?? 01/15/2023 23:37?? SpO2?? 98?? 01/16/2023 19:17?? 96?? 01/15/2023 23:37 ?? 100?? 01/16/2023 10:55?? O2 Flow Rate?? on 2 ? l/min?? on 2 ? l/min?? on 2 ? l/min O2 Therapy?? Nasal cannula?? Nasal cannula?? Nasal cannula ? I&O 24 Hour Total? 01/12 19:06 01/16 07:00 01/15 07:00 01/14 07:00 01/13 07:00 ?? 01/16 20:30 01/16 20:30 01/16 06:59 01/15 06:59 01/14 06:59 Intake ? 2640 ?400 ?600 ?820 ?820 Output ? 8925 ?700 ? 1700 ? 1050 ? 2275 Net Total ?-6285 ? -300 ?-1100 ? -230 ?-1455 Stool Count ?1 ?0 ?0 ?0 ?1 ? Physical Exam General: Awake, Alert, No acute distress. Appearance: Well nourished. Behavior: Appropriate. Eye: Normal conjunctiva. Anicteric sclerae Head: Normocephalic.?? Nontraumatic Neck:?trachea midline Respiratory: Respiration??even and unlabored. Cardiovascular: Normal rate, Regular rhythm Gastrointestinal: Non-tender, Non distended. Musculoskeletal: No deformity. Extremities: No pedal edema. Skin: Warm, and Dry Neurologic: Speech clear and coherent. Alert, Oriented. Psychiatric: Cooperative, Appropriate mood & affect. _ Home Medications acetaZOLAMIDE (acetaZOLAMIDE 250 mg oral tablet)?250?Milligram?1?Tabs?By Mouth?Every 6 hours?for 5?Days amiodarone (amiodarone 200 mg oral tablet)?100?Milligram?By Mouth?Daily?for 30?Days apixaban (apixaban 5 mg oral tablet)?5?Milligram?1?Tabs?By Mouth?2 Times a Day ascorbic acid (ascorbic acid 500 mg oral tablet)?500?Milligram?1?Tabs?By Mouth?2 Times a Day aspirin (aspirin 81 mg oral tablet, chewable)?81?Milligram?1?Tabs?Chewed?Daily atorvastatin (atorvastatin 40 mg oral tablet)?40?Milligram?1?Tabs?By Mouth?at Bedtime cyanocobalamin (cyanocobalamin 1000 mcg/mL injectable solution)?1,000?Microgram?Intramuscular?Every Sunday cyclobenzaprine (cyclobenzaprine 10 mg oral tablet)?10?Milligram?1?Tabs?By Mouth?at Bedtime dapagliflozin (dapagliflozin 10 mg oral tablet)?10?Milligram?1?Tabs?By Mouth?Daily docusate (docusate sodium 100 mg oral tablet)?100?Milligram?1?Tabs?By Mouth?2 Times a Day finasteride (Proscar 5 mg oral tablet)?5?Milligram?1?Tabs?By Mouth?Daily FLUoxetine (PROzac 20 mg oral capsule)?20?Milligram?1?Capsules?By Mouth?Daily furosemide (furosemide 40 mg oral tablet)?40?Milligram?1?Tabs?By Mouth?2 Times a Day?Administer at 9 am and 2 pm?for 30?Days guaifenesin-dextromethorphan (guaifenesin-dextromethorphan 200 mg-20 mg/10 mL oral liquid)?10?Milliliter?By Mouth?Every 4 hours?as needed?Cough?for 10?Days levothyroxine (Synthroid 25 mcg (0.025 mg) oral tablet)?25?Microgram?1?Tabs?By Mouth?Daily loratadine (loratadine 10 mg oral tablet)?10?Milligram?1?Tabs?By Mouth?Daily metFORMIN (metFORMIN 500 mg oral tablet)?500?Milligram?1?Tabs?By Mouth?Daily?as needed?Blood Glucose (please specify)?for blood sugar over 200 metoprolol (Metoprolol Succinate ER 50 mg oral tablet, extended release)?50?Milligram?1?Tabs?By Mouth?at Bedtime multivitamin with minerals (Centrum Silver oral tablet)?1?Tabs?By Mouth?2 Times a Day pantoprazole (Protonix 20 mg oral enteric coated tablet)?20?Milligram?1?Tabs?By Mouth?Daily potassium chloride (Potassium Chloride (Eqv-K-Tab) 20 mEq oral tablet, extended release)?20?Milliequivalent?1?Tabs?By Mouth?2 Times a Day?for 30?Days sacubitril-valsartan (Entresto 24 mg-26 mg oral tablet)?1?Tabs?By Mouth?2 Times a Day spironolactone (spironolactone 25 mg oral tablet)?25?Milligram?1?Tabs?By Mouth?Daily tamsulosin (tamsulosin 0.4 mg oral capsule)?0.4?Milligram?1?Capsules?By Mouth?2 Times a Day ? Inpatient Medications Medications (25) Active SCHEDULED: (19) acetaZOLAMIDE 250 mg Tab (acetaZOLAMIDE) ??250 mg 1 Tabs, Oral, q6H amiodarone 200 mg Tab (amiodarone) ??100 mg 0.5 Tabs, Oral, Daily apixaban 5 mg Tab (apixaban) ??5 mg 1 Tabs, Oral, BID ascorbic acid 500 mg Tab (Vitamin C) ??500 mg 1 Tabs, Oral, BID aspirin 81 mg Chew Tab (aspirin) ??81 mg 1 Tabs, Chewed, Daily atorvastatin 40 mg Tab (atorvastatin) ??40 mg 1 Tabs, Oral, qHS cyanocobalamin 1000 mcg/mL INJ SOLN (cyanocobalamin) ??1,000 mcg 1 mL, IntraMuscular, qMonday dapagliflozin 10 mg Tab (Farxiga) ??10 mg 1 Tabs, Oral, Daily docusate sodium 100 mg Cap (docusate sodium) ??100 mg 1 Caps, Oral, BID finasteride 5 mg Tab (Proscar) ??5 mg 1 Tabs, Oral, Daily FLUoxetine 20 mg Cap (PROzac) ??20 mg 1 Caps, Oral, Daily Hypoglycemia Protocol Advisor ??Protocol, N/A, Daily insulin aspart NovoLOG 1 unit/ 0.01mL syringe (insulin aspart NovoLog correctional scale Low) ??sliding scale low, SubCutaneous, Before Meals and HS insulin aspart NovoLOG 1 unit/ 0.01mL syringe (insulin aspart NovoLog correctional scale Low) ??2-8units, SubCutaneous, Before Meals and HS levothyroxine 25 mcg (0.025 mg) Tab (Synthroid) ??25 mcg 1 Tabs, Oral, Daily loratadine 10 mg Tab (loratadine) ??10 mg 1 Tabs, Oral, Daily metoprolol succinate 50 mg XL Tab (Metoprolol Succinate ER) ??50 mg 1 Tabs, Oral, qHS sacubitril-valsartan 24 mg-26 mg Tab (Entresto 24 mg-26 mg oral tablet) ??1 Tabs, Oral, BID tamsulosin 0.4 mg SA Cap (Flomax) ??0.4 mg 1 Caps, Oral, BID CONTINUOUS: (0) PRN: (6) acetaminophen 325 mg Tab (Tylenol) ??650 mg 2 Tabs, Oral, q4H dextromethorphan-guaiFENesin 20 mg-200 mg/10 mL (Robitussin DM) ??10 mL, Oral, q4H docusate sodium 100 mg Cap (Colace) ??100 mg 1 Caps, Oral, BID ipratropium 0.5mg Inh Janet 2.5 mL (ipratropium 0.02% inh janet) ??0.5 mg 2.5 mL, Inhalation, RT q6H ondansetron 4 mg/2 mL vial (Zofran) ??4 mg 2 mL, IV Push, q6H ondansetron 4 mg/2 mL vial (Zofran) ??4 mg 2 mL, IV Push, q4H ? 72 hour Antibiotic History No qualifying data available... ?? Results Recent Labs Blood Gases pH Arterial 7.480 (High)?? 01/15/2023 08:29 Art pCO2 44.8 mmHg (Normal)?? 01/15/2023 08:29 Art pO2 51.1 mmHg (Low)?? 01/15/2023 08:29 Art TempC,pH 7.480 (N/A)?? 01/15/2023 08:29 Art TempC,PCO2 44.8 mmHg (N/A)?? 01/15/2023 08:29 Art TempC,PO2 51.1 mmHg (N/A)?? 01/15/2023 08:29 Art HCO3 32.0 mmol/L (High)?? 01/15/2023 08:29 Art Base Excess 8.5 mmol/L (High)?? 01/15/2023 08:29 Art sO2 88 % (Low)?? 01/15/2023 08:29 Art tHB 15.9 gm/dL (Normal)?? 01/15/2023 08:29 Art O2 Hb 87 % (Low)?? 01/15/2023 08:29 Art Carboxyhemoglobin 1.6 % (High)?? 01/15/2023 08:29 Art Methemoglobin 0.1 % (Normal)?? 01/15/2023 08:29 POC Juan Antonio Test POS (N/A)?? 01/15/2023 08:29 POC Del Sys ROOM AIR (N/A)?? 01/15/2023 08:29 POC FIO2 21 % (N/A)?? 01/15/2023 08:29 POC Pt Temp 37.0 DegC (N/A)?? 01/15/2023 08:29 POC Site Radial Left (N/A)?? 01/15/2023 08:29 POC Sample Arterial (N/A)?? 01/15/2023 08:29 POC Vent Mode NO VENT (N/A)?? 01/15/2023 08:29 Art Hct 48.6 % (Normal)?? 01/15/2023 08:29 Art Lactate 1.9 mmol/L (Normal)?? 01/15/2023 08:29 Line Ordering Clinician ID [id number] (N/A)?? 01/15/2023 08:29 ?? Cardiac BNP 69.5 pg/mL (Normal)?? 01/16/2023 02:56 ?? General Chemistry Glucose Level 137 mg/dL (High)?? 01/16/2023 02:56 POC Glucose 130 mg/dL (High)?? 01/16/2023 15:34 Arterial Glucose 202 mg/dL (High)?? 01/15/2023 08:29 Sodium 133 mmol/L (Low)?? 01/16/2023 02:56 Art Na 138 mmol/L (Normal)?? 01/15/2023 08:29 Potassium 3.4 mmol/L (Low)?? 01/16/2023 02:56 Art K 4.1 mmol/L (Normal)?? 01/15/2023 08:29 Chloride 97 mmol/L (Low)?? 01/16/2023 02:56 CO2 32 mmol/L (Normal)?? 01/16/2023 02:56 Anion Gap 4 mmol/L (Normal)?? 01/16/2023 02:56 BUN 24 mg/dL (High)?? 01/16/2023 02:56 Creatinine 1.2 mg/dL (Normal)?? 01/16/2023 02:56 BUN/Creat Ratio 20.00 Ratio (Normal)?? 01/16/2023 02:56 Calcium 9.8 mg/dL (Normal)?? 01/16/2023 02:56 Art iCa 1.2 mmol/L (Normal)?? 01/15/2023 08:29 Mg Lvl 2.1 mg/dL (Normal)?? 01/16/2023 02:56 Phosphorus 4.6 mg/dL (Normal)?? 01/16/2023 02:56 eGFR Cr 62 mL/min/1.73m2 (N/A)?? 01/16/2023 02:56 eGFR Pediatric Not Reported mL/min/1.73m2 (N/A)?? 01/16/2023 02:56 MAR Glucose Result 130 ()?? 01/16/2023 15:59 ?? General Hematology WBC 8.90 x10e3/mcL (Normal)?? 01/16/2023 02:56 RBC 4.58 x10e6/mcL (Low)?? 01/16/2023 02:56 Hgb 15.20 gm/dL (Normal)?? 01/16/2023 02:56 Hct 44.00 % (Normal)?? 01/16/2023 02:56 MCV 96.2 Femtoliters (Normal)?? 01/16/2023 02:56 MCH 33.20 pg (High)?? 01/16/2023 02:56 MCHC 34.50 gm/dL (Normal)?? 01/16/2023 02:56 RDW-CV 14.40 % (Normal)?? 01/16/2023 02:56 RDW-SD 49.00 Femtoliters (High)?? 01/16/2023 02:56 Plt 233 x10e3/mcL (Normal)?? 01/16/2023 02:56 MPV 8.20 Femtoliters (Normal)?? 01/16/2023 02:56 Neut % Auto 61.1 % (Normal)?? 01/16/2023 02:56 Lymph % Auto 21.2 % (Low)?? 01/16/2023 02:56 Payne % Auto 14.4 % (High)?? 01/16/2023 02:56 Eos % Auto 3.0 % (Normal)?? 01/16/2023 02:56 Baso % Auto 0.3 % (Normal)?? 01/16/2023 02:56 Neut # Auto 5.4 x10e3/mcL (Normal)?? 01/16/2023 02:56 Lymph # Auto 1.9 x10e3/mcL (Normal)?? 01/16/2023 02:56 Payne # Auto 1.3 x10e3/mcL (Normal)?? 01/16/2023 02:56 Eos # Auto 0.3 x10e3/mcL (Normal)?? 01/16/2023 02:56 Baso # Auto 0.0 x10e3/mcL (Normal)?? 01/16/2023 02:56 ? CBC, BMP, Coagulation Trend (last 4 resulted) WBC 8.90 ?? 01/16/2023 ??02:56 9.10 ?? 01/14/2023 ??03:27 ? Hgb 15.20 ?? 01/16/2023 ??02:56 14.20 ?? 01/14/2023 ??03:27 ? Hct 44.00 ?? 01/16/2023 ??02:56 41.60 ?? 01/14/2023 ??03:27 ? Baso # Auto 0.0 ?? 01/16/2023 ??02:56 0.0 ?? 01/14/2023 ??03:27 ? Baso % Auto 0.3 ?? 01/16/2023 ??02:56 0.4 ?? 01/14/2023 ??03:27 ? Eos # Auto 0.3 ?? 01/16/2023 ??02:56 0.2 ?? 01/14/2023 ??03:27 ? Eos % Auto 3.0 ?? 01/16/2023 ??02:56 2.7 ?? 01/14/2023 ??03:27 ? Lymph # Auto 1.9 ?? 01/16/2023 ??02:56 1.7 ?? 01/14/2023 ??03:27 ? Lymph % Auto 21.2 ??L?? 01/16/2023 ??02:56 18.7 ??L?? 01/14/2023 ??03:27 ? Payne # Auto 1.3 ?? 01/16/2023 ??02:56 1.2 ?? 01/14/2023 ??03:27 ? Payne % Auto 14.4 ??H?? 01/16/2023 ??02:56 13.6 ?? 01/14/2023 ??03:27 ? Neut # Auto 5.4 ?? 01/16/2023 ??02:56 5.9 ?? 01/14/2023 ??03:27 ? Neut % Auto 61.1 ?? 01/16/2023 ??02:56 64.6 ?? 01/14/2023 ??03:27 ? Plt 233 ?? 01/16/2023 ??02:56 221 ?? 01/14/2023 ??03:27 ? Glucose Level 137 ??H?? 01/16/2023 ??02:56 186 ??H?? 01/14/2023 ??03:27 137 ??H?? 01/13/2023 ??04:22 ?? Sodium 133 ??L?? 01/16/2023 ??02:56 136 ?? 01/14/2023 ??03:27 137 ?? 01/13/2023 ??04:22 ?? Potassium 3.4 ??L?? 01/16/2023 ??02:56 4.6 ?? 01/15/2023 ??04:29 3.8 ?? 01/14/2023 ??03:27 3.2 ??L?? 01/13/2023 ??04:22 Chloride 97 ??L?? 01/16/2023 ??02:56 97 ??L?? 01/14/2023 ??03:27 99 ?? 01/13/2023 ??04:22 ?? CO2 32 ?? 01/16/2023 ??02:56 36 ??H?? 01/14/2023 ??03:27 37 ??H?? 01/13/2023 ??04:22 ?? BUN 24 ??H?? 01/16/2023 ??02:56 20 ??H?? 01/14/2023 ??03:27 13 ?? 01/13/2023 ??04:22 ?? Creatinine 1.2 ?? 01/16/2023 ??02:56 1.2 ?? 01/14/2023 ??03:27 1.0 ?? 01/13/2023 ??04:22 ?? BUN/Creat Ratio 20.00 ?? 01/16/2023 ??02:56 16.67 ?? 01/14/2023 ??03:27 13.00 ?? 01/13/2023 ??04:22 ?? Mg Lvl 2.1 ?? 01/16/2023 ??02:56 2.0 ?? 01/14/2023 ??03:27 2.2 ?? 01/13/2023 ??04:22 ?? Phosphorus 4.6 ?? 01/16/2023 ??02:56 4.1 ?? 01/14/2023 ??03:27 ? Calcium 9.8 ?? 01/16/2023 ??02:56 9.7 ?? 01/14/2023 ??03:27 9.4 ?? 01/13/2023 ??04:22 ? Cardiology Labs BNP: 69.5 pg/mL (01/16/23 02:56:00) BNP:??235 pg/mL??High (01/14/23 03:27:00) BNP:??505 pg/mL??Critical (01/13/23 04:22:00) Troponin TNIH: 18.8 ng/L (01/13/23 00:02:00) Troponin TNIH: 20.7 ng/L (01/12/23 21:08:00) Troponin TNIH: 21.5 ng/L (01/12/23 18:41:00) ? Images EKG sinus rhythm, right bundle branch block, right axis deviation??no ST-T segment changes concerning for ischemia. ?? Echocardiogram on 01/04/23 Summary: 1. Left ventricular ejection fraction, by visual estimation, is 30 to 35%. 2. Moderately dilated left atrium. 3. Left atrial appendage visualized in multiple angles and no thrombus seen. 4. Small pericardial effusion, as described above. 5. Moderate mitral valve regurgitation. 6. Mild-moderate tricuspid regurgitation. 7. Moderate aortic valve sclerosis is present, with no evidence of aortic valve stenosis. 8. Non coronary cusp thickened. 9. The pulmonic valve is trileaflet, without evidence of stenosis or insufficiency. 10. Small plaque involving the descending aorta. 11. Saline contrast bubble study was negative, with no evidence of any intracardiac shunt. 12. Lipomatous hypertrophy of the atrial septum. ? CT CHEST WITHOUT CONTRAST: 01/13/23 ?? RADIATION DOSE TECHNIQUE: Automated exposure control ?? FINDINGS: ?? Small pleural effusions are present with nonspecific scarring and atelectasis. No specific consolidative airspace disease. No gross pulmonary nodule or mass. ?? The heart size is mildly enlarged. Small pericardial effusion is present. Atherosclerotic disease involves the aorta and its major branches. ?? No significant thoracic adenopathy. ?? The upper intra-abdominal organs are not imaged in their entirety. ??No gross abnormality is seen. ?? The bones are osteopenic with generalized degenerative changes. ? IMPRESSION: ?? Small pleural effusions with nonspecific scarring and atelectasis. See above for more details. ? CHEST X-RAY, 1 VIEW 01/12/23 ?? HISTORY: Shortness of Breath (SOB) ?? COMPARISON: 01/04/2023 ?? Support lines: ? Blunted right costophrenic angle. ??Prominence of the interstitial lung markings. ??Bilateral airspace opacities. Partial obscuration of the right hemidiaphragm. ?? Pneumothorax: Absent Trachea: within normal limits. Cardiac silhouette: enlarged. Bony structures: Degenerative changes involving the spine and shoulders. Visualized upper abdomen: Within normal limits ? IMPRESSION: ?? Diffuse bilateral lung opacities consistent with pulmonary edema, small right pleural effusion and right basilar atelectasis ?? . ??Pneumonia cannot be excluded. Clinical correlation is recommended. ?? Enlarged cardiac silhouette ? BILATERAL VENOUS DUPLEX ULTRASOUND OF THE LOWER EXTREMITIES 01/03/23 ? Static ultrasound images with Doppler of the bilateral lower extremity venous system demonstrates no evidence of deep venous thrombosis. ??Normal augmentation and compression was demonstrated. ? IMPRESSION: ?? NEGATIVE DEEP VENOUS THROMBOSIS STUDY. ? Assessment/Plan Diagnoses 1. ??Acute combined systolic and diastolic CHF, NYHA class 3 ??(I50.41) 2. ??Acute cardiac pulmonary edema ??(I50.1) 3. ??Diabetes ??(E11.9) 4. ??Hyperlipemia ??(E78.5) 5. ??Atrial fibrillation ??(I48.91) 6. ??HTN (hypertension) ??(I10) 7. ??CAD in [place] artery ??(I25.10) 8. ??Presence of stent in coronary artery ??(Z95.5) ? acute??on chronic heart failure exacerbation. ?Continue Entresto low-dose -?? continue??acetazolamide??to 250 mg??p.o. daily??for 5 days (total) ??? Continue home metoprolol 50 mg XL daily - Continue farxiga 10 mg daily ?Strict I's and O's, daily weight, keep K greater than 4 mag??greater than 2 ?Continue amiodarone??100 mg??mg p.o. daily, continue Eliquis 5 mg p.o. twice daily for CVA??prophylaxis ?Continue high intensity statin ?Continue management of COPD per primary team ?Continue management of diabetes and hypothyroidism per primary team ?? Patient may be discharged home??from cardiology standpoint review.?? He needs to??have cardiac rehab??as outpatient.?? Outpatient follow-up with cardiology??this Sunday??at 2:30 PM.?? When he comes to clinic we will order labs??and review his medications??tolerance.?? He will need home oxygen. Electronically Signed By: Josh Yanes MD On: 01.17.2023 21:01 NET C DEVELOPER * Margi Plummer MD: PERFORM Event Display: Progress Note-Physician Authored Date: [id number] Subjective ? Date of Service :?? 2/?? Hospitalist Progress Note ?? Chief Complaint : progressive SOB ?? Mr Albert Chang : 77/M with COPD on Home O2 , chronic hypoxemic resp failure.?? Ischemic Cardiomyopathy EF 30 to 35%. Moderate mitral valve regurgitation.Mild-moderate tricuspid regurgitation. Non insulin Rxed DM2, HTN. HLD. Hypothyroidism. BPH. Depression , Hx Paroxysmal A Fib involvement , admitted and Rxed?? 01/02 to 01/05 for A Fib RVR?? Post DC cardioversion??on 01/04/23 ??200 J,??converted to??sinus rhythm On continuous oral anticoagulation ?? 01/12/23 Heart ER Adm with SOB, orthopnea seen at office of [facility] Dr Yanes and sent to [facility] for Eval and Rx and Hospital Adm 01/14/23? 4.85 L negative fluid balance. ??Appears comfortable, seated upright by side of bed. OnO2 via NC. ??No chest pain, palpitations, dizziness, near syncope. No fever. No arrhythmia. Serial Troponins are negative. BNP 505 . ABG 7.45/ 45.5 /51.8 on RA??. BUN 13? K 3.2?? personally reviewed image CXR :?Diffuse bilateral lung opacities consistent with pulmonary edema, small right pleural effusion and right basilar atelectasis ?? . ??Pneumonia cannot be excluded.Rx deescalation, stopping Bumetanude, adding Spironolactone, Farxiga and low dose Sacubitril Valsartan. Oxygen?? arrangement upon DC pending., Antibiotics , Neb Rx ?24 Hour Interval Course No chest pain, shortness of breath, palpitations, dizziness, near syncope. Potassium low , being replaced. Mg an d? PO4ok?? O2 sat 96 on RA at rest ??Pending O2 arrangements. Cumulative 6.4 negative fluid balance ?? Chief Complaint/Reason for Consultation Chief Complaint: Shortness of breath, COPD with exacerbation, and respiratory failure. ?? Past Medical History Active Problems(6) Atrial fibrillation CHF (congestive heart failure) COPD (chronic obstructive pulmonary disease) Diabetes HTN (hypertension) Hyperlipemia ? Past Surgical History Cholecystectomy;: 2020 Appendectomy;: 03/20/64 inguinal hernia repair ? Functional Assessments ? Objective Measurements (most recent)?? Height 160.02 cm?Alex NEFF, Jeanne ??01/12 18:18 Weight 89.30 kg?Calderón PCT, Sheryl ??01/15 04:30 Body Mass Index 34.87 kg/m2?Calderón PCT, Sheryl ??01/15 04:30 Scale Type Bed scale?Calderón PCT, Sheryl ??01/15 04:30 ? Vital Signs (24 hrs) Last Charted?? Minimum?? Maximum?? Temp?? 36.5?? 01/17/2023 10:40?? L??36.3?? 01/16/2023 10:55 ?? L??36.3?? 01/16/2023 10:55?? Peripheral Pulse Rate?? 77?? 01/17/2023 10:40?? 66?? 01/16/2023 10:55 ?? 83?? 01/17/2023 07:15?? Resp Rate?? 16?? 01/17/2023 10:40?? 16?? 01/17/2023 05:19 ?? 18?? 01/16/2023 10:55?? SBP?? 107?? 01/17/2023 10:40?? 93?? 01/16/2023 15:33 ?? 122?? 01/17/2023 07:15?? DBP?? 65?? 01/17/2023 10:40?? L??56?? 01/16/2023 10:55 ?? 67?? 01/17/2023 07:15?? MAP?? 79?? 01/17/2023 10:40?? 70?? 01/16/2023 15:33 ?? 85?? 01/17/2023 07:15?? SpO2?? 96?? 01/17/2023 10:40?? 96?? 01/16/2023 15:33 ?? 100?? 01/16/2023 10:55?? O2 Flow Rate?? on 2 ? l/min?? on 2 ? l/min?? on 2 ? l/min O2 Therapy?? Nasal cannula?? Nasal cannula?? Nasal cannula ? I&O 24 Hour Total? 01/12 19:06 01/17 07:00 01/16 07:00 01/15 07:00 01/14 07:00 ?? 01/17 10:46 01/17 10:46 01/17 06:59 01/16 06:59 01/15 06:59 Intake ? 2640 ?0 ?400 ?600 ?820 Output ? 9100 ?175 ?700 ? 1700 ? 1050 Net Total ?-6460 ? -175 ? -300 ?-1100 ? -230 Stool Count ?1 ?0 ?0 ?0 ?1 ? Precautions No Precautions documented.? Mental Status Exam ? Basic ADLs ? Stroke Assessments Vanderbilt Coma Scale Eye Opening Response Vanderbilt: Spontaneously (01/17/23 08:40:00) Best Verbal Response Black: Oriented and converses (01/17/23 08:40:00) Best Motor Response Vanderbilt: Obeys commands (01/17/23 08:40:00) Vanderbilt Coma Score: 15 (01/17/23 08:40:00) ? Physical Exam General: Alert, in no acute cardiopulmonary distress. On O2 via NC F/D F.N Mental Status: Oriented to person, place and time. Head: Normocephalic. Eyes: Pupils are equal, round and reactive to light. . Ear, Nose and Throat: Oropharynx clear, mucous membranes moist. Tight posterior pharynx. . Trachea midline. Neck: Supple, Full range of motion.Fullness of jugular veins Respiratory:?? Fair air entry?? CBVBS . No wheezing, rales or rhonchi. Cardiovascular: Heart sounds normal. No thrills. Regular rate and rhythm, no murmurs, rubs or gallops. Gastrointestinal: Abdomen soft, obese non-tender, non-distended. Normal bowel sounds. Genitourinary: No costovertebral angle tenderness. Neurologic: . No focal neurological deficits. . Skin: No rashes or lesions. No petechiae or purpura. Trace edema. Musculoskeletal: No cyanosis or clubbing. No gross deformities. Normal range of motion _ Inpatient Medications Medications (26) Active SCHEDULED: (20) acetaZOLAMIDE 250 mg Tab (acetaZOLAMIDE) ??250 mg 1 Tabs, Oral, q6H amiodarone 200 mg Tab (amiodarone) ??100 mg 0.5 Tabs, Oral, Daily apixaban 5 mg Tab (apixaban) ??5 mg 1 Tabs, Oral, BID ascorbic acid 500 mg Tab (Vitamin C) ??500 mg 1 Tabs, Oral, BID aspirin 81 mg Chew Tab (aspirin) ??81 mg 1 Tabs, Chewed, Daily atorvastatin 40 mg Tab (atorvastatin) ??40 mg 1 Tabs, Oral, qHS cyanocobalamin 1000 mcg/mL INJ SOLN (cyanocobalamin) ??1,000 mcg 1 mL, IntraMuscular, qMonday dapagliflozin 10 mg Tab (Farxiga) ??10 mg 1 Tabs, Oral, Daily docusate sodium 100 mg Cap (docusate sodium) ??100 mg 1 Caps, Oral, BID finasteride 5 mg Tab (Proscar) ??5 mg 1 Tabs, Oral, Daily FLUoxetine 20 mg Cap (PROzac) ??20 mg 1 Caps, Oral, Daily Hypoglycemia Protocol Advisor ??Protocol, N/A, Daily insulin aspart NovoLOG 1 unit/ 0.01mL syringe (insulin aspart NovoLog correctional scale Low) ??2-8units, SubCutaneous, Before Meals and HS levothyroxine 25 mcg (0.025 mg) Tab (Synthroid) ??25 mcg 1 Tabs, Oral, Daily loratadine 10 mg Tab (loratadine) ??10 mg 1 Tabs, Oral, Daily metoprolol succinate 50 mg XL Tab (Metoprolol Succinate ER) ??50 mg 1 Tabs, Oral, qHS potassium bicarbonate 25 mEq Eff Tab K-Lyte (K-Lyte Eff Tablet) ??25 mEq 1 Tabs, Oral, Once potassium chloride 20 mEq ER Tab (K-Dur 20) ??40 mEq 2 Tabs, Oral, Once sacubitril-valsartan 24 mg-26 mg Tab (Entresto 24 mg-26 mg oral tablet) ??1 Tabs, Oral, BID tamsulosin 0.4 mg SA Cap (Flomax) ??0.4 mg 1 Caps, Oral, BID CONTINUOUS: (0) PRN: (6) acetaminophen 325 mg Tab (Tylenol) ??650 mg 2 Tabs, Oral, q4H dextromethorphan-guaiFENesin 20 mg-200 mg/10 mL (Robitussin DM) ??10 mL, Oral, q4H docusate sodium 100 mg Cap (Colace) ??100 mg 1 Caps, Oral, BID ipratropium 0.5mg Inh Janet 2.5 mL (ipratropium 0.02% inh janet) ??0.5 mg 2.5 mL, Inhalation, RT q6H ondansetron 4 mg/2 mL vial (Zofran) ??4 mg 2 mL, IV Push, q6H ondansetron 4 mg/2 mL vial (Zofran) ??4 mg 2 mL, IV Push, q4H ? 72 hour Antibiotic History No qualifying data available... ? Durable Medical Equipment ? Results Recent Labs Cardiac BNP 69.5 pg/mL (Normal)?? 01/16/2023 02:56 ?? General Chemistry Glucose Level 137 mg/dL (High)?? 01/16/2023 02:56 POC Glucose 127 mg/dL (High)?? 01/17/2023 05:22 Sodium 133 mmol/L (Low)?? 01/16/2023 02:56 Potassium 3.1 mmol/L (Low)?? 01/17/2023 05:18 Chloride 97 mmol/L (Low)?? 01/16/2023 02:56 CO2 32 mmol/L (Normal)?? 01/16/2023 02:56 Anion Gap 4 mmol/L (Normal)?? 01/16/2023 02:56 BUN 24 mg/dL (High)?? 01/16/2023 02:56 Creatinine 1.2 mg/dL (Normal)?? 01/16/2023 02:56 BUN/Creat Ratio 20.00 Ratio (Normal)?? 01/16/2023 02:56 Calcium 9.8 mg/dL (Normal)?? 01/16/2023 02:56 Mg Lvl 2.1 mg/dL (Normal)?? 01/16/2023 02:56 Phosphorus 4.6 mg/dL (Normal)?? 01/16/2023 02:56 eGFR Cr 62 mL/min/1.73m2 (N/A)?? 01/16/2023 02:56 eGFR Pediatric Not Reported mL/min/1.73m2 (N/A)?? 01/16/2023 02:56 MAR Glucose Result 127 ()?? 01/17/2023 07:23 ?? General Hematology WBC 8.90 x10e3/mcL (Normal)?? 01/16/2023 02:56 RBC 4.58 x10e6/mcL (Low)?? 01/16/2023 02:56 Hgb 15.20 gm/dL (Normal)?? 01/16/2023 02:56 Hct 44.00 % (Normal)?? 01/16/2023 02:56 MCV 96.2 Femtoliters (Normal)?? 01/16/2023 02:56 MCH 33.20 pg (High)?? 01/16/2023 02:56 MCHC 34.50 gm/dL (Normal)?? 01/16/2023 02:56 RDW-CV 14.40 % (Normal)?? 01/16/2023 02:56 RDW-SD 49.00 Femtoliters (High)?? 01/16/2023 02:56 Plt 233 x10e3/mcL (Normal)?? 01/16/2023 02:56 MPV 8.20 Femtoliters (Normal)?? 01/16/2023 02:56 Neut % Auto 61.1 % (Normal)?? 01/16/2023 02:56 Lymph % Auto 21.2 % (Low)?? 01/16/2023 02:56 Payne % Auto 14.4 % (High)?? 01/16/2023 02:56 Eos % Auto 3.0 % (Normal)?? 01/16/2023 02:56 Baso % Auto 0.3 % (Normal)?? 01/16/2023 02:56 Neut # Auto 5.4 x10e3/mcL (Normal)?? 01/16/2023 02:56 Lymph # Auto 1.9 x10e3/mcL (Normal)?? 01/16/2023 02:56 Payne # Auto 1.3 x10e3/mcL (Normal)?? 01/16/2023 02:56 Eos # Auto 0.3 x10e3/mcL (Normal)?? 01/16/2023 02:56 Baso # Auto 0.0 x10e3/mcL (Normal)?? 01/16/2023 02:56 ? Abnormal Labs ?? General Chemistry ??POC Glucose ??127 mg/dL (High) ??01/17/2023 05:22 ??Potassium ??3.1 mmol/L (Low) ??01/17/2023 05:18 ? Note: Critical results are displayed in red. ? CBC, BMP, Coagulation Trend (last 4 resulted) WBC 8.90 ?? 01/16/2023 ??02:56 9.10 ?? 01/14/2023 ??03:27 ? Hgb 15.20 ?? 01/16/2023 ??02:56 14.20 ?? 01/14/2023 ??03:27 ? Hct 44.00 ?? 01/16/2023 ??02:56 41.60 ?? 01/14/2023 ??03:27 ? Baso # Auto 0.0 ?? 01/16/2023 ??02:56 0.0 ?? 01/14/2023 ??03:27 ? Baso % Auto 0.3 ?? 01/16/2023 ??02:56 0.4 ?? 01/14/2023 ??03:27 ? Eos # Auto 0.3 ?? 01/16/2023 ??02:56 0.2 ?? 01/14/2023 ??03:27 ? Eos % Auto 3.0 ?? 01/16/2023 ??02:56 2.7 ?? 01/14/2023 ??03:27 ? Lymph # Auto 1.9 ?? 01/16/2023 ??02:56 1.7 ?? 01/14/2023 ??03:27 ? Lymph % Auto 21.2 ??L?? 01/16/2023 ??02:56 18.7 ??L?? 01/14/2023 ??03:27 ? Payne # Auto 1.3 ?? 01/16/2023 ??02:56 1.2 ?? 01/14/2023 ??03:27 ? Payne % Auto 14.4 ??H?? 01/16/2023 ??02:56 13.6 ?? 01/14/2023 ??03:27 ? Neut # Auto 5.4 ?? 01/16/2023 ??02:56 5.9 ?? 01/14/2023 ??03:27 ? Neut % Auto 61.1 ?? 01/16/2023 ??02:56 64.6 ?? 01/14/2023 ??03:27 ? Plt 233 ?? 01/16/2023 ??02:56 221 ?? 01/14/2023 ??03:27 ? Glucose Level 137 ??H?? 01/16/2023 ??02:56 186 ??H?? 01/14/2023 ??03:27 137 ??H?? 01/13/2023 ??04:22 ?? Sodium 133 ??L?? 01/16/2023 ??02:56 136 ?? 01/14/2023 ??03:27 137 ?? 01/13/2023 ??04:22 ?? Potassium 3.1 ??L?? 01/17/2023 ??05:18 3.4 ??L?? 01/16/2023 ??02:56 4.6 ?? 01/15/2023 ??04:29 3.8 ?? 01/14/2023 ??03:27 Chloride 97 ??L?? 01/16/2023 ??02:56 97 ??L?? 01/14/2023 ??03:27 99 ?? 01/13/2023 ??04:22 ?? CO2 32 ?? 01/16/2023 ??02:56 36 ??H?? 01/14/2023 ??03:27 37 ??H?? 01/13/2023 ??04:22 ?? BUN 24 ??H?? 01/16/2023 ??02:56 20 ??H?? 01/14/2023 ??03:27 13 ?? 01/13/2023 ??04:22 ?? Creatinine 1.2 ?? 01/16/2023 ??02:56 1.2 ?? 01/14/2023 ??03:27 1.0 ?? 01/13/2023 ??04:22 ?? BUN/Creat Ratio 20.00 ?? 01/16/2023 ??02:56 16.67 ?? 01/14/2023 ??03:27 13.00 ?? 01/13/2023 ??04:22 ?? Mg Lvl 2.1 ?? 01/16/2023 ??02:56 2.0 ?? 01/14/2023 ??03:27 2.2 ?? 01/13/2023 ??04:22 ?? Phosphorus 4.6 ?? 01/16/2023 ??02:56 4.1 ?? 01/14/2023 ??03:27 ? Calcium 9.8 ?? 01/16/2023 ??02:56 9.7 ?? 01/14/2023 ??03:27 9.4 ?? 01/13/2023 ??04:22 ? Blood Glucose Trend POC Glucose:??127 mg/dL??High (01/17/23 05:22:00) POC Glucose:??152 mg/dL??High (01/16/23 20:35:00) POC Glucose:??130 mg/dL??High (01/16/23 15:34:00) POC Glucose:??126 mg/dL??High (01/16/23 10:57:00) ? BMP, Mg, and Phos (Last Within 24hrs) Potassium:??3.1 mmol/L??Low (05:18) ? Cardiology Labs BNP: 69.5 pg/mL (01/16/23 02:56:00) BNP:??235 pg/mL??High (01/14/23 03:27:00) BNP:??505 pg/mL??Critical (01/13/23 04:22:00) Troponin TNIH: 18.8 ng/L (01/13/23 00:02:00) Troponin TNIH: 20.7 ng/L (01/12/23 21:08:00) Troponin TNIH: 21.5 ng/L (01/12/23 18:41:00) ? Assessment/Plan Diagnoses 1. ??Acute combined systolic and diastolic CHF, NYHA class 3 ??(I50.41) 2. ??Acute cardiac pulmonary edema ??(I50.1) 3. ??Diabetes ??(E11.9) 4. ??Hyperlipemia ??(E78.5) 5. ??Atrial fibrillation ??(I48.91) 6. ??HTN (hypertension) ??(I10) 7. ??CAD in [place] artery ??(I25.10) 8. ??Presence of stent in coronary artery ??(Z95.5) ?Assessment/Plan Diagnoses 1. ??Acute combined systolic and diastolic CHF, NYHA class 3 ??(I50.41) 2. ??Acute cardiac pulmonary edema ??(I50.1) 3. ??Diabetes ??(E11.9) 4. ??Hyperlipemia ??(E78.5) 5. ??Atrial fibrillation ??(I48.91) 6. ??HTN (hypertension) ??(I10) 7. ??CAD in [place] artery ??(I25.10) 8. ??Presence of stent in coronary artery ??(Z95.5) Acute on Chronic Hypercapneic Hypoxemic Respiratory ??Failure Obesity BMI 36.67 JAME on CKD Stage II ?? Plan : Inpatient Admission Telemetry Monitoring Oxygen Supplementation Aggressive Diuresis Salt and Fluid Restriction Strict Intake and Output Nebulizer Rx Empiric Antibiotics ?? acetaZOLAMIDE 250 mg Tab (acetaZOLAMIDE) ??250 mg 1 Tabs, Oral, q6H amiodarone 200 mg Tab (amiodarone) ??100 mg 0.5 Tabs, Oral, Daily apixaban 5 mg Tab (apixaban) ??5 mg 1 Tabs, Oral, BID ascorbic acid 500 mg Tab (Vitamin C) ??500 mg 1 Tabs, Oral, BID aspirin 81 mg Chew Tab (aspirin) ??81 mg 1 Tabs, Chewed, Daily atorvastatin 40 mg Tab (atorvastatin) ??40 mg 1 Tabs, Oral, qHS cyanocobalamin 1000 mcg/mL INJ SOLN (cyanocobalamin) ??1,000 mcg 1 mL, IntraMuscular, qMonday dapagliflozin 10 mg Tab (Farxiga) ??10 mg 1 Tabs, Oral, Daily docusate sodium 100 mg Cap (docusate sodium) ??100 mg 1 Caps, Oral, BID finasteride 5 mg Tab (Proscar) ??5 mg 1 Tabs, Oral, Daily FLUoxetine 20 mg Cap (PROzac) ??20 mg 1 Caps, Oral, Daily Hypoglycemia Protocol Advisor ??Protocol, N/A, Daily insulin aspart NovoLOG 1 unit/ 0.01mL syringe (insulin aspart NovoLog correctional scale Low) ??2-8units, SubCutaneous, Before Meals and HS levothyroxine 25 mcg (0.025 mg) Tab (Synthroid) ??25 mcg 1 Tabs, Oral, Daily loratadine 10 mg Tab (loratadine) ??10 mg 1 Tabs, Oral, Daily metoprolol succinate 50 mg XL Tab (Metoprolol Succinate ER) ??50 mg 1 Tabs, Oral, qHS potassium bicarbonate 25 mEq Eff Tab K-Lyte (K-Lyte Eff Tablet) ??25 mEq 1 Tabs, Oral, Once potassium chloride 20 mEq ER Tab (K-Dur 20) ??40 mEq 2 Tabs, Oral, Once sacubitril-valsartan 24 mg-26 mg Tab (Entresto 24 mg-26 mg oral tablet) ??1 Tabs, Oral, BID tamsulosin 0.4 mg SA Cap (Flomax) ??0.4 mg 1 Caps, Oral, BID ?? GI and DVT Prophylaxis ?? Condition stable ??Prognosis?? fair ?? Further as per clinical evolution ??Order Date/Time ??Order Action ??Order Name ??Order Detail ??01/17/2023 10:44 ??Order ??Discharge Request ??01/17/23 10:59:00 NET C DEVELOPER, Home Routine, Kavitha MODI, Margi Dennison DC once O2 portable delivered at hospital and O2 concentrator delivered home ??01/17/2023 10:31 ??Order ??potassium chloride ??20 mEq, 1 Tabs, Oral, Daily, for 30 Days, 30 Tabs, 0 Refill(s) ??01/17/2023 10:29 ??Order ??potassium chloride 20 mEq ER Tab ??40 mEq, 2 Tabs, Oral, Once ??01/17/2023 10:29 ??Order ??potassium bicarbonate 25 mEq Eff Tab K-Lyte ??25 mEq, 1 Tabs, Oral, Once ??01/17/2023 10:29 ??Order ??B N Pep ??Blood, Nurse collect, Stat collect, 01/17/23 10:29:00 NET C DEVELOPER, Stop date 01/17/23 10:29:00 NET C DEVELOPER ??01/17/2023 10:29 ??Order ??Phos ??Blood, Nurse collect, Stat collect, 01/17/23 10:29:00 NET C DEVELOPER, Stop date 01/17/23 10:29:00 NET C DEVELOPER ??01/17/2023 10:29 ??Order ??Mg ??Blood, Nurse collect, Stat collect, 01/17/23 10:29:00 NET C DEVELOPER, Once, Stop date 01/17/23 10:29:00 NET C DEVELOPER ??01/17/2023 10:28 ??Order ??BMP ??Blood, Nurse collect, Stat collect, 01/17/23 10:28:00 NET C DEVELOPER, Stop date 01/17/23 10:29:00 NET C DEVELOPER ??01/17/2023 06:01 ??Order ??POC Glu ??Blood, Collected Y/N, RT, RT - Routine, 01/17/23 5:22:06 NET C DEVELOPER ? Electronically Signed By: Margi Plummer MD On: 01.17.2023 10:52 NET C DEVELOPER * Ranjit MODI, Ashutosh Quiroga: PERFORM Event Display: Progress Note-Physician Authored Date: [id number] Subjective He is currently on oxygen 2 L via nasal cannula he feels fine with no oxygen on and his O2 saturation is 97%, he is less dyspneic denies any chest pain denies any cough expectoration, arterial blood gases on room??pH 7.48 PCO2 44 PO2??51??, home oxygen beingv arranged patient use home CPAP machine??patient has been on??bumex 1 mg twice , started on Diamox 125 daily for??few days ? Admission data 77/M with COPD previously on Home O2 for hypoxemic resp failure. ??He uses home oxygen his O2 was removed 3 months ago??obstructive sleep apnea on home CPAP??,?congestive heart failure??reported ejection fraction of 35%,?? Non insulin Rxed DM2, HTN. HLD. Hypothyroidism. BPH. Depression , Hx Paroxysmal A Fib, recent cardio version??and recent hospitalization??he was admitted with shortness of breath and??acute combined systolic and diastolic congestive heart failure.?? He was noted to have hypoxemia on room air and pulmonary evaluation has been requested.?? He states he was prescribed oxygen several years ago for COPD,??but then he got better??and the oxygen was removed.?? Over the past2 or 3 months, he has noted progressive dyspnea on exertion, which became significantly worse??whenhe came to the hospital.?? He also had palpitations??and chest pain.?? On admission, he had atrial fibrillation with rapid ventricular response.?? Currently, he feels significantly better.?? He reports??dyspnea on exertion, but denies cough or sputum production at this time. ??He denies wheezing aswell. ?? 77 years old male with a history of chronic hypoxemic respiratory failure.?? He is on oxygen at home,??but is using??his 's oxygen machine.?? He has a history of COPD as well.? Review of Systems Review of Systems: Constitutional:??no fever, chills, ENT :??no sneezing, congestion, runny nose or sore throat. Skin: No rash or itching. Cardiovascular: see above Respiratory: see above Gastrointestinal: No?? nausea, vomiting or diarrhea. No abdominal pain Genitourinary: No burning micturition. No urinary frequency or incontinence. Neurologic: No headache, dizziness ,weakness, numbness Musculoskeletal: No muscle pain,joint pain or stiffness. Hematologic: No bleeding or bruising. Psychiatric: No depression or anxiety. Allergies Allergies ?(Active and Proposed Allergies Only) [...] documented. ? Objective Measurements (most recent)?? Height 160.02 cm?Alex RN, Jeanne ??01/12 18:18 Weight 89.30 kg?Calderón PCT, Sheryl ??01/15 04:30 Body Mass Index 34.87 kg/m2?Calderón PCT, Sheryl ??01/15 04:30 Scale Type Bed scale?Calderón PCT, Sheyrl ??01/15 04:30 ? Vital Signs (24 hrs) Last Charted?? Minimum?? Maximum?? Temp?? L??36.3?? 01/16/2023 06:59?? 36.7?? 01/15/2023 10:42 ?? 36.7?? 01/15/2023 10:42?? Peripheral Pulse Rate?? 66?? 01/16/2023 06:59?? 64?? 01/15/2023 23:37 ?? 82?? 01/15/2023 10:42?? Resp Rate?? 18?? 01/16/2023 06:59?? 18?? 01/15/2023 10:42 ?? 18?? 01/15/2023 10:42?? SBP?? 97?? 01/16/2023 06:59?? 97?? 01/16/2023 06:59 ?? 123?? 01/15/2023 23:37?? DBP?? 61?? 01/16/2023 06:59?? L??58?? 01/15/2023 20:00 ?? 77?? 01/15/2023 16:38?? MAP?? 73?? 01/16/2023 06:59?? 73?? 01/16/2023 06:59 ?? 90?? 01/15/2023 16:38?? SpO2?? 98?? 01/16/2023 06:59?? 96?? 01/15/2023 23:37 ?? 99?? 01/15/2023 16:38?? O2 Flow Rate?? on 2 ? l/min?? on 2 ? l/min?? on 2 ? l/min O2 Therapy?? Nasal cannula?? Nasal cannula?? Nasal cannula ? I&O 24 Hour Total? 01/12 19:06 01/16 07:00 01/15 07:00 01/14 07:00 01/13 07:00 ?? 01/16 09:37 01/16 09:37 01/16 06:59 01/15 06:59 01/14 06:59 Intake ? 2240 ?0 ?600 ?820 ?820 Output ? 8475 ?250 ? 1700 ? 1050 ? 2275 Net Total ?-6235 ? -250 ?-1100 ? -230 ?-1455 Stool Count ?1 ?0 ?0 ?0 ?1 ? Physical Exam General: Obesity BMI 34.1??alert, in no acute cardiopulmonary distress. Eyes:??Normal conjunctiva Ear, Nose and Throat: Normal nasal mucosa??, throat no erythema, ??oropharynx clear, Neck: Supple, no jugular venous distention trachea central thyroid not enlarged no cervical adenopathy,??large tongue with narrow posterior pharynx Respiratory: Decreased breath sounds bilaterally??symmetrical expansion??,normal percussion??,clearto auscultation . No wheezing, rales or rhonchi.??not Using accessory muscles, 10 thick neck Cardiovascular: Heart sounds Regular rate and rhythm, no murmurs,?? gallops. ??Good peripheral pulses??and perfusion Gastrointestinal: Abdomen soft, non-tender, non-distended. Normal bowel sounds. liver spleen not palpable. Genitourinary: No costovertebral angle tenderness. Neurologic: Cranial nerves intact. No focal neurological deficits. Moves all extremities spontaneously Skin: No rashes or lesions. No petechiae or purpura. No edema. Musculoskeletal: No cyanosis or clubbing. No gross deformities. . Lymphatics: No??adenopathy or tender lymph nodes Psychiatric : Cooperative with appropriate mood and affect _ Home Medications acetaZOLAMIDE (acetaZOLAMIDE 250 mg oral tablet)?250?Milligram?1?Tabs?By Mouth?Every 6 hours?for 5?Days amiodarone (amiodarone 200 mg oral tablet)?100?Milligram?By Mouth?Daily?for 30?Days apixaban (apixaban 5 mg oral tablet)?5?Milligram?1?Tabs?By Mouth?2 Times a Day ascorbic acid (ascorbic acid 500 mg oral tablet)?500?Milligram?1?Tabs?By Mouth?2 Times a Day aspirin (aspirin 81 mg oral tablet, chewable)?81?Milligram?1?Tabs?Chewed?Daily atorvastatin (atorvastatin 40 mg oral tablet)?40?Milligram?1?Tabs?By Mouth?at Bedtime cyanocobalamin (cyanocobalamin 1000 mcg/mL injectable solution)?1,000?Microgram?Intramuscular?Every Sunday cyclobenzaprine (cyclobenzaprine 10 mg oral tablet)?10?Milligram?1?Tabs?By Mouth?at Bedtime dapagliflozin (dapagliflozin 10 mg oral tablet)?10?Milligram?1?Tabs?By Mouth?Daily docusate (docusate sodium 100 mg oral tablet)?100?Milligram?1?Tabs?By Mouth?2 Times a Day finasteride (Proscar 5 mg oral tablet)?5?Milligram?1?Tabs?By Mouth?Daily FLUoxetine (PROzac 20 mg oral capsule)?20?Milligram?1?Capsules?By Mouth?Daily furosemide (furosemide 40 mg oral tablet)?40?Milligram?1?Tabs?By Mouth?2 Times a Day?Administer at 9 am and 2 pm?for 30?Days guaifenesin-dextromethorphan (guaifenesin-dextromethorphan 200 mg-20 mg/10 mL oral liquid)?10?Milliliter?By Mouth?Every 4 hours?as needed?Cough?for 10?Days levothyroxine (Synthroid 25 mcg (0.025 mg) oral tablet)?25?Microgram?1?Tabs?By Mouth?Daily loratadine (loratadine 10 mg oral tablet)?10?Milligram?1?Tabs?By Mouth?Daily metFORMIN (metFORMIN 500 mg oral tablet)?500?Milligram?1?Tabs?By Mouth?Daily?as needed?Blood Glucose (please specify)?for blood sugar over 200 metoprolol (Metoprolol Succinate ER 50 mg oral tablet, extended release)?50?Milligram?1?Tabs?By Mouth?at Bedtime multivitamin with minerals (Centrum Silver oral tablet)?1?Tabs?By Mouth?2 Times a Day pantoprazole (Protonix 20 mg oral enteric coated tablet)?20?Milligram?1?Tabs?By Mouth?Daily sacubitril-valsartan (Entresto 24 mg-26 mg oral tablet)?1?Tabs?By Mouth?2 Times a Day spironolactone (spironolactone 25 mg oral tablet)?25?Milligram?1?Tabs?By Mouth?Daily tamsulosin (tamsulosin 0.4 mg oral capsule)?0.4?Milligram?1?Capsules?By Mouth?2 Times a Day ? Inpatient Medications Medications (30) Active SCHEDULED: (24) acetaZOLAMIDE 250 mg Tab (acetaZOLAMIDE) ??250 mg 1 Tabs, Oral, q6H amiodarone 200 mg Tab (amiodarone) ??100 mg 0.5 Tabs, Oral, Daily apixaban 5 mg Tab (apixaban) ??5 mg 1 Tabs, Oral, BID ascorbic acid 500 mg Tab (Vitamin C) ??500 mg 1 Tabs, Oral, BID aspirin 81 mg Chew Tab (aspirin) ??81 mg 1 Tabs, Chewed, Daily atorvastatin 40 mg Tab (atorvastatin) ??40 mg 1 Tabs, Oral, qHS cyanocobalamin 1000 mcg/mL INJ SOLN (cyanocobalamin) ??1,000 mcg 1 mL, IntraMuscular, qMonday dapagliflozin 10 mg Tab (Farxiga) ??10 mg 1 Tabs, Oral, Daily docusate sodium 100 mg Cap (docusate sodium) ??100 mg 1 Caps, Oral, BID finasteride 5 mg Tab (Proscar) ??5 mg 1 Tabs, Oral, Daily FLUoxetine 20 mg Cap (PROzac) ??20 mg 1 Caps, Oral, Daily Hypoglycemia Protocol Advisor ??Protocol, N/A, Daily insulin aspart NovoLOG 1 unit/ 0.01mL syringe (insulin aspart NovoLog correctional scale Low) ??sliding scale low, SubCutaneous, Before Meals and HS insulin aspart NovoLOG 1 unit/ 0.01mL syringe (insulin aspart NovoLog correctional scale Low) ??2-8units, SubCutaneous, Before Meals and HS levothyroxine 25 mcg (0.025 mg) Tab (Synthroid) ??25 mcg 1 Tabs, Oral, Daily loratadine 10 mg Tab (loratadine) ??10 mg 1 Tabs, Oral, Daily metoprolol succinate 50 mg XL Tab (Metoprolol Succinate ER) ??50 mg 1 Tabs, Oral, qHS Protocols (Magnesium Oxide - Oral) ??Protocol, N/A, Daily Protocols (Magnesium Sulfate - IV) ??Protocol, N/A, Daily Protocols (Sodium Phosphate - Oral) ??Protocol, N/A, Daily Protocols (Sodium Phosphate - IV) ??Protocol, N/A, Daily Protocols (Potassium Chloride - Oral & IV) ??Protocol, N/A, Daily sacubitril-valsartan 24 mg-26 mg Tab (Entresto 24 mg-26 mg oral tablet) ??1 Tabs, Oral, BID tamsulosin 0.4 mg SA Cap (Flomax) ??0.4 mg 1 Caps, Oral, BID CONTINUOUS: (0) PRN: (6) acetaminophen 325 mg Tab (Tylenol) ??650 mg 2 Tabs, Oral, q4H dextromethorphan-guaiFENesin 20 mg-200 mg/10 mL (Robitussin DM) ??10 mL, Oral, q4H docusate sodium 100 mg Cap (Colace) ??100 mg 1 Caps, Oral, BID ipratropium 0.5mg Inh Janet 2.5 mL (ipratropium 0.02% inh janet) ??0.5 mg 2.5 mL, Inhalation, RT q6H ondansetron 4 mg/2 mL vial (Zofran) ??4 mg 2 mL, IV Push, q6H ondansetron 4 mg/2 mL vial (Zofran) ??4 mg 2 mL, IV Push, q4H ? 72 hour Antibiotic History No qualifying data available... ?? Results CBC, BMP, Coagulation Trend (last 4 resulted) WBC 8.90 ?? 01/16/2023 ??02:56 9.10 ?? 01/14/2023 ??03:27 ? Hgb 15.20 ?? 01/16/2023 ??02:56 14.20 ?? 01/14/2023 ??03:27 ? Hct 44.00 ?? 01/16/2023 ??02:56 41.60 ?? 01/14/2023 ??03:27 ? Baso # Auto 0.0 ?? 01/16/2023 ??02:56 0.0 ?? 01/14/2023 ??03:27 ? Baso % Auto 0.3 ?? 01/16/2023 ??02:56 0.4 ?? 01/14/2023 ??03:27 ? Eos # Auto 0.3 ?? 01/16/2023 ??02:56 0.2 ?? 01/14/2023 ??03:27 ? Eos % Auto 3.0 ?? 01/16/2023 ??02:56 2.7 ?? 01/14/2023 ??03:27 ? Lymph # Auto 1.9 ?? 01/16/2023 ??02:56 1.7 ?? 01/14/2023 ??03:27 ? Lymph % Auto 21.2 ??L?? 01/16/2023 ??02:56 18.7 ??L?? 01/14/2023 ??03:27 ? Payne # Auto 1.3 ?? 01/16/2023 ??02:56 1.2 ?? 01/14/2023 ??03:27 ? Payne % Auto 14.4 ??H?? 01/16/2023 ??02:56 13.6 ?? 01/14/2023 ??03:27 ? Neut # Auto 5.4 ?? 01/16/2023 ??02:56 5.9 ?? 01/14/2023 ??03:27 ? Neut % Auto 61.1 ?? 01/16/2023 ??02:56 64.6 ?? 01/14/2023 ??03:27 ? Plt 233 ?? 01/16/2023 ??02:56 221 ?? 01/14/2023 ??03:27 ? Glucose Level 137 ??H?? 01/16/2023 ??02:56 186 ??H?? 01/14/2023 ??03:27 137 ??H?? 01/13/2023 ??04:22 ?? Sodium 133 ??L?? 01/16/2023 ??02:56 136 ?? 01/14/2023 ??03:27 137 ?? 01/13/2023 ??04:22 ?? Potassium 3.4 ??L?? 01/16/2023 ??02:56 4.6 ?? 01/15/2023 ??04:29 3.8 ?? 01/14/2023 ??03:27 3.2 ??L?? 01/13/2023 ??04:22 Chloride 97 ??L?? 01/16/2023 ??02:56 97 ??L?? 01/14/2023 ??03:27 99 ?? 01/13/2023 ??04:22 ?? CO2 32 ?? 01/16/2023 ??02:56 36 ??H?? 01/14/2023 ??03:27 37 ??H?? 01/13/2023 ??04:22 ?? BUN 24 ??H?? 01/16/2023 ??02:56 20 ??H?? 01/14/2023 ??03:27 13 ?? 01/13/2023 ??04:22 ?? Creatinine 1.2 ?? 01/16/2023 ??02:56 1.2 ?? 01/14/2023 ??03:27 1.0 ?? 01/13/2023 ??04:22 ?? BUN/Creat Ratio 20.00 ?? 01/16/2023 ??02:56 16.67 ?? 01/14/2023 ??03:27 13.00 ?? 01/13/2023 ??04:22 ?? Mg Lvl 2.1 ?? 01/16/2023 ??02:56 2.0 ?? 01/14/2023 ??03:27 2.2 ?? 01/13/2023 ??04:22 ?? Phosphorus 4.6 ?? 01/16/2023 ??02:56 4.1 ?? 01/14/2023 ??03:27 ? Calcium 9.8 ?? 01/16/2023 ??02:56 9.7 ?? 01/14/2023 ??03:27 9.4 ?? 01/13/2023 ??04:22 ? Cardiology Labs BNP: 69.5 pg/mL (01/16/23 02:56:00) BNP:??235 pg/mL??High (01/14/23 03:27:00) BNP:??505 pg/mL??Critical (01/13/23 04:22:00) Troponin TNIH: 18.8 ng/L (01/13/23 00:02:00) Troponin TNIH: 20.7 ng/L (01/12/23 21:08:00) Troponin TNIH: 21.5 ng/L (01/12/23 18:41:00) ? Assessment/Plan Diagnoses ?? Acute on chronic??respiratory failure , PO2 on room air is 51 Acute on chronic congestive heart failure with reduced ejection fraction 30-35 Atrial fibrillation with rapid ventricular response, electrical??cardioversion??January 04, 2022 Chronic obstructive pulmonary disease former heavy smoker Obstructive sleep apnea??and hypersomnia on on home CPAP Adult BMI 34.0-34.9 kg/sq m BPH Hypothyroid diabetes mellitus? Plan : ?? Oxygen arrangement is in progress CPAP??12 cm H2O nighttime and as needed??daytime Continue??carvedilol and and the Bumex he will be given Diamox for 4 days bronchodilators only on as needed basis albuterol 1.25 mg every 8 hours Continue??DVT prophylaxis with Lovenox Discharge planning as per primary ? Electronically Signed By: Ashutosh Church MD On: 01.16.2023 09:41 NET C DEVELOPER * Josh Yanes MD: PERFORM, MODIFY Event Display: Progress Note-Physician Authored Date: Subjective No chest pain. ??Shortness of breath is improved. ??The??feels??fatigued. Chief Complaint/Reason for Consultation Chief Complaint: Shortness of breath, COPD with exacerbation, and respiratory failure. ?? Allergies Allergies ?(Active and Proposed Allergies [...] Family History No Family History documented. ? Spiritual History Comfort From Spiritual Practice: No ?? Objective Measurements (most recent)?? Height 160.02 cm?Johnson RN, Jeanne ??01/12 18:18 Weight 89.30 kg?Calderón PCT, Sheryl ??01/15 04:30 Body Mass Index 34.87 kg/m2?Calderón PCT, Sheryl ??01/15 04:30 Scale Type Bed scale?Aclderón PCT, Sheryl ??01/15 04:30 ? Vital Signs (24 hrs) Last Charted?? Minimum?? Maximum?? Temp?? 36.5?? 01/15/2023 07:13?? L??36.1?? 01/14/2023 11:31 ?? 37?? 01/14/2023 23:27?? Peripheral Pulse Rate?? 78?? 01/15/2023 07:13?? 69?? 01/14/2023 19:11 ?? 88?? 01/14/2023 11:31?? Resp Rate?? 18?? 01/15/2023 07:13?? 18?? 01/14/2023 11:31 ?? 18?? 01/14/2023 11:31?? SBP?? 112?? 01/15/2023 07:13?? 97?? 01/15/2023 04:21 ?? 123?? 01/14/2023 16:01?? DBP?? 61?? 01/15/2023 07:13?? L??55?? 01/14/2023 23:27 ?? 72?? 01/14/2023 11:31?? MAP?? 78?? 01/15/2023 07:13?? 70?? 01/15/2023 04:21 ?? 84?? 01/14/2023 11:31?? SpO2?? 97?? 01/15/2023 07:13?? 94?? 01/14/2023 16:01 ?? 99?? 01/14/2023 19:11?? O2 Flow Rate?? on 2 ? l/min? on 2 ? l/min O2 Therapy?? Nasal cannula?? Room air?? Nasal cannula ? I&O 24 Hour Total? 01/12 19:06 01/15 07:00 01/14 07:00 01/13 07:00 01/12 07:00 ?? 01/15 09:52 01/15 09:52 01/15 06:59 01/14 06:59 01/13 06:59 Intake ? 1840 ?200 ?820 ?820 ?0 Output ? 6525 ?0 ? 1050 ? 2275 ? 3200 Net Total ?-4685 ?200 ? -230 ?-1455 ?-3200 Stool Count ?1 ?0 ?0 ?1 ?0 ? Physical Exam General: Awake, Alert, No acute distress. Appearance: Well nourished. Behavior: Appropriate. Eye: Normal conjunctiva. Anicteric sclerae Head: Normocephalic.?? Nontraumatic Neck:?trachea midline Respiratory: Respiration??even and unlabored. Cardiovascular: Normal rate, Regular rhythm Gastrointestinal: Non-tender, Non distended. Musculoskeletal: No deformity. Extremities: No pedal edema. Skin: Warm, and Dry Neurologic: Speech clear and coherent. Alert, Oriented. Psychiatric: Cooperative, Appropriate mood & affect. _ Home Medications amiodarone (amiodarone 200 mg oral tablet)?200?Milligram?1?Tabs?By Mouth?Daily apixaban (apixaban 5 mg oral tablet)?5?Milligram?1?Tabs?By Mouth?2 Times a Day ascorbic acid (Vitamin C 500 mg oral capsule)?500?Milligram?1?Capsules?By Mouth?2Times a Day aspirin (aspirin 81 mg oral tablet, chewable)?81?Milligram?1?Tabs?Chewed?Daily atorvastatin (atorvastatin 40 mg oral tablet)?40?Milligram?1?Tabs?By Mouth?at Bedtime cyanocobalamin (cyanocobalamin 1000 mcg/mL injectable solution)?1,000?Microgram?Intramuscular?Every Sunday cyclobenzaprine (cyclobenzaprine 10 mg oral tablet)?10?Milligram?1?Tabs?By Mouth?at Bedtime docusate (docusate sodium 100 mg oral tablet)?100?Milligram?1?Tabs?By Mouth?2 Times a Day finasteride (Proscar 5 mg oral tablet)?5?Milligram?1?Tabs?By Mouth?Daily FLUoxetine (PROzac 20 mg oral capsule)?20?Milligram?1?Capsules?By Mouth?Daily furosemide (Lasix 80 mg oral tablet)?40?Milligram?0.5?Tabs?By Mouth?2 Times a Day levothyroxine (Synthroid 25 mcg (0.025 mg) oral tablet)?25?Microgram?1?Tabs?By Mouth?Daily loratadine (loratadine 10 mg oral tablet)?10?Milligram?1?Tabs?By Mouth?Daily metFORMIN (metFORMIN 500 mg oral tablet)?500?Milligram?1?Tabs?By Mouth?Daily?as needed?Blood Glucose (please specify)?for blood sugar over 200 metOLazone (metOLazone 5 mg oral tablet)?5?Milligram?1?Tabs?By Mouth?Daily metoprolol (Metoprolol Succinate ER 50 mg oral tablet, extended release)?50?Milligram?1?Tabs?By Mouth?at Bedtime multivitamin with minerals (Centrum Silver oral tablet)?1?Tabs?By Mouth?2 Times a Day pantoprazole (Protonix 20 mg oral enteric coated tablet)?20?Milligram?1?Tabs?By Mouth?Daily saw palmetto (saw palmetto 450 mg oral capsule)?450?Milligram?1?Each?By Mouth?2 Times a Day tamsulosin (Flomax 0.4 mg oral capsule)?0.4?Milligram?1?Capsules?By Mouth?2 Timesa Day ? Inpatient Medications Medications (31) Active SCHEDULED: (25) acetaZOLAMIDE 250 mg Tab (acetaZOLAMIDE) ??250 mg 1 Tabs, Oral, q6H amiodarone 200 mg Tab (amiodarone) ??200 mg 1 Tabs, Oral, Daily apixaban 5 mg Tab (apixaban) ??5 mg 1 Tabs, Oral, BID ascorbic acid 500 mg Tab (Vitamin C) ??500 mg 1 Tabs, Oral, BID aspirin 81 mg Chew Tab (aspirin) ??81 mg 1 Tabs, Chewed, Daily atorvastatin 40 mg Tab (atorvastatin) ??40 mg 1 Tabs, Oral, qHS cyanocobalamin 1000 mcg/mL INJ SOLN (cyanocobalamin) ??1,000 mcg 1 mL, IntraMuscular, qMonday dapagliflozin 10 mg Tab (Farxiga) ??10 mg 1 Tabs, Oral, Daily docusate sodium 100 mg Cap (docusate sodium) ??100 mg 1 Caps, Oral, BID finasteride 5 mg Tab (Proscar) ??5 mg 1 Tabs, Oral, Daily FLUoxetine 20 mg Cap (PROzac) ??20 mg 1 Caps, Oral, Daily Hypoglycemia Protocol Advisor ??Protocol, N/A, Daily insulin aspart NovoLOG 1 unit/ 0.01mL syringe (insulin aspart NovoLog correctional scale Low) ??sliding scale low, SubCutaneous, Before Meals and HS insulin aspart NovoLOG 1 unit/ 0.01mL syringe (insulin aspart NovoLog correctional scale Low) ??2-8units, SubCutaneous, Before Meals and HS levothyroxine 25 mcg (0.025 mg) Tab (Synthroid) ??25 mcg 1 Tabs, Oral, Daily loratadine 10 mg Tab (loratadine) ??10 mg 1 Tabs, Oral, Daily metoprolol succinate 50 mg XL Tab (Metoprolol Succinate ER) ??50 mg 1 Tabs, Oral, qHS Protocols (Potassium Chloride - Oral & IV) ??Protocol, N/A, Daily Protocols (Magnesium Oxide - Oral) ??Protocol, N/A, Daily Protocols (Magnesium Sulfate - IV) ??Protocol, N/A, Daily Protocols (Sodium Phosphate - Oral) ??Protocol, N/A, Daily Protocols (Sodium Phosphate - IV) ??Protocol, N/A, Daily Protocols (Potassium Chloride - Oral & IV) ??Protocol, N/A, Daily sacubitril-valsartan 24 mg-26 mg Tab (Entresto 24 mg-26 mg oral tablet) ??1 Tabs, Oral, BID tamsulosin 0.4 mg SA Cap (Flomax) ??0.4 mg 1 Caps, Oral, BID CONTINUOUS: (0) PRN: (6) acetaminophen 325 mg Tab (Tylenol) ??650 mg 2 Tabs, Oral, q4H dextromethorphan-guaiFENesin 20 mg-200 mg/10 mL (Robitussin DM) ??10 mL, Oral, q4H docusate sodium 100 mg Cap (Colace) ??100 mg 1 Caps, Oral, BID ipratropium 0.5mg Inh Janet 2.5 mL (ipratropium 0.02% inh janet) ??0.5 mg 2.5 mL, Inhalation, RT q6H ondansetron 4 mg/2 mL vial (Zofran) ??4 mg 2 mL, IV Push, q6H ondansetron 4 mg/2 mL vial (Zofran) ??4 mg 2 mL, IV Push, q4H ? 72 hour Antibiotic History No qualifying data available... ?? Results Recent Labs Blood Gases pH Arterial 7.480 (High)?? 01/15/2023 08:29 Art pCO2 44.8 mmHg (Normal)?? 01/15/2023 08:29 Art pO2 51.1 mmHg (Low)?? 01/15/2023 08:29 Art TempC,pH 7.480 (N/A)?? 01/15/2023 08:29 Art TempC,PCO2 44.8 mmHg (N/A)?? 01/15/2023 08:29 Art TempC,PO2 51.1 mmHg (N/A)?? 01/15/2023 08:29 Art HCO3 32.0 mmol/L (High)?? 01/15/2023 08:29 Art Base Excess 8.5 mmol/L (High)?? 01/15/2023 08:29 Art sO2 88 % (Low)?? 01/15/2023 08:29 Art tHB 15.9 gm/dL (Normal)?? 01/15/2023 08:29 Art O2 Hb 87 % (Low)?? 01/15/2023 08:29 Art Carboxyhemoglobin 1.6 % (High)?? 01/15/2023 08:29 Art Methemoglobin 0.1 % (Normal)?? 01/15/2023 08:29 POC Juan Antonio Test POS (N/A)?? 01/15/2023 08:29 POC Del Sys ROOM AIR (N/A)?? 01/15/2023 08:29 POC FIO2 21 % (N/A)?? 01/15/2023 08:29 POC Pt Temp 37.0 DegC (N/A)?? 01/15/2023 08:29 POC Site Radial Left (N/A)?? 01/15/2023 08:29 POC Sample Arterial (N/A)?? 01/15/2023 08:29 POC Vent Mode NO VENT (N/A)?? 01/15/2023 08:29 Art Hct 48.6 % (Normal)?? 01/15/2023 08:29 Art Lactate 1.9 mmol/L (Normal)?? 01/15/2023 08:29 Line Ordering Clinician ID [id number] (N/A)?? 01/15/2023 08:29 ?? Cardiac BNP 235.0 pg/mL (High)?? 01/14/2023 03:27 ?? General Chemistry Glucose Level 186 mg/dL (High)?? 01/14/2023 03:27 POC Glucose 137 mg/dL (High)?? 01/15/2023 04:26 Arterial Glucose 202 mg/dL (High)?? 01/15/2023 08:29 Sodium 136 mmol/L (Normal)?? 01/14/2023 03:27 Art Na 138 mmol/L (Normal)?? 01/15/2023 08:29 Potassium 4.6 mmol/L (Normal)?? 01/15/2023 04:29 Art K 4.1 mmol/L (Normal)?? 01/15/2023 08:29 Chloride 97 mmol/L (Low)?? 01/14/2023 03:27 CO2 36 mmol/L (High)?? 01/14/2023 03:27 Anion Gap 3 mmol/L (Normal)?? 01/14/2023 03:27 BUN 20 mg/dL (High)?? 01/14/2023 03:27 Creatinine 1.2 mg/dL (Normal)?? 01/14/2023 03:27 BUN/Creat Ratio 16.67 Ratio (Normal)?? 01/14/2023 03:27 Calcium 9.7 mg/dL (Normal)?? 01/14/2023 03:27 Art iCa 1.2 mmol/L (Normal)?? 01/15/2023 08:29 Mg Lvl 2.0 mg/dL (Normal)?? 01/14/2023 03:27 Phosphorus 4.1 mg/dL (Normal)?? 01/14/2023 03:27 Estimated Creatinine Clearance 40.83 mL/min ()?? 01/14/2023 03:49 eGFR Cr 62 mL/min/1.73m2 (N/A)?? 01/14/2023 03:27 eGFR Pediatric Not Reported mL/min/1.73m2 (N/A)?? 01/14/2023 03:27 MAR Glucose Result 111 ()?? 01/14/2023 19:54 ?? General Hematology WBC 9.10 x10e3/mcL (Normal)?? 01/14/2023 03:27 RBC 4.32 x10e6/mcL (Low)?? 01/14/2023 03:27 Hgb 14.20 gm/dL (Normal)?? 01/14/2023 03:27 Hct 41.60 % (Normal)?? 01/14/2023 03:27 MCV 96.2 Femtoliters (Normal)?? 01/14/2023 03:27 MCH 32.80 pg (Normal)?? 01/14/2023 03:27 MCHC 34.10 gm/dL (Normal)?? 01/14/2023 03:27 RDW-CV 14.20 % (Normal)?? 01/14/2023 03:27 RDW-SD 48.10 Femtoliters (High)?? 01/14/2023 03:27 Plt 221 x10e3/mcL (Normal)?? 01/14/2023 03:27 MPV 8.20 Femtoliters (Normal)?? 01/14/2023 03:27 Neut % Auto 64.6 % (Normal)?? 01/14/2023 03:27 Lymph % Auto 18.7 % (Low)?? 01/14/2023 03:27 Payne % Auto 13.6 % (Normal)?? 01/14/2023 03:27 Eos % Auto 2.7 % (Normal)?? 01/14/2023 03:27 Baso % Auto 0.4 % (Normal)?? 01/14/2023 03:27 Neut # Auto 5.9 x10e3/mcL (Normal)?? 01/14/2023 03:27 Lymph # Auto 1.7 x10e3/mcL (Normal)?? 01/14/2023 03:27 Payne # Auto 1.2 x10e3/mcL (Normal)?? 01/14/2023 03:27 Eos # Auto 0.2 x10e3/mcL (Normal)?? 01/14/2023 03:27 Baso # Auto 0.0 x10e3/mcL (Normal)?? 01/14/2023 03:27 ? CBC, BMP, Coagulation Trend (last 4 resulted) WBC 9.10 ?? 01/14/2023 ??03:27 ? Hgb 14.20 ?? 01/14/2023 ??03:27 ? Hct 41.60 ?? 01/14/2023 ??03:27 ? Baso # Auto 0.0 ?? 01/14/2023 ??03:27 ? Baso % Auto 0.4 ?? 01/14/2023 ??03:27 ? Eos # Auto 0.2 ?? 01/14/2023 ??03:27 ? Eos % Auto 2.7 ?? 01/14/2023 ??03:27 ? Lymph # Auto 1.7 ?? 01/14/2023 ??03:27 ? Lymph % Auto 18.7 ??L?? 01/14/2023 ??03:27 ? Payne # Auto 1.2 ?? 01/14/2023 ??03:27 ? Payne % Auto 13.6 ?? 01/14/2023 ??03:27 ? Neut # Auto 5.9 ?? 01/14/2023 ??03:27 ? Neut % Auto 64.6 ?? 01/14/2023 ??03:27 ? Plt 221 ?? 01/14/2023 ??03:27 ? Glucose Level 186 ??H?? 01/14/2023 ??03:27 137 ??H?? 01/13/2023 ??04:22 ? Sodium 136 ?? 01/14/2023 ??03:27 137 ?? 01/13/2023 ??04:22 ? Potassium 4.6 ?? 01/15/2023 ??04:29 3.8 ?? 01/14/2023 ??03:27 3.2 ??L?? 01/13/2023 ??04:22 ?? Chloride 97 ??L?? 01/14/2023 ??03:27 99 ?? 01/13/2023 ??04:22 ? CO2 36 ??H?? 01/14/2023 ??03:27 37 ??H?? 01/13/2023 ??04:22 ? BUN 20 ??H?? 01/14/2023 ??03:27 13 ?? 01/13/2023 ??04:22 ? Creatinine 1.2 ?? 01/14/2023 ??03:27 1.0 ?? 01/13/2023 ??04:22 ? BUN/Creat Ratio 16.67 ?? 01/14/2023 ??03:27 13.00 ?? 01/13/2023 ??04:22 ? Mg Lvl 2.0 ?? 01/14/2023 ??03:27 2.2 ?? 01/13/2023 ??04:22 ? Phosphorus 4.1 ?? 01/14/2023 ??03:27 ? Calcium 9.7 ?? 01/14/2023 ??03:27 9.4 ?? 01/13/2023 ??04:22 ? Cardiology Labs BNP:??235 pg/mL??High (01/14/23 03:27:00) BNP:??505 pg/mL??Critical (01/13/23 04:22:00) Troponin TNIH: 18.8 ng/L (01/13/23 00:02:00) Troponin TNIH: 20.7 ng/L (01/12/23 21:08:00) Troponin TNIH: 21.5 ng/L (01/12/23 18:41:00) ?? Blood Gases (Last Within 24hrs) pH Arterial:??7.48??High (08:29) Art pO2:??51.1 mmHg??Low (08:29) Art pCO2: 44.8 mmHg (08:29) Art HCO3:??32 mmol/L??High (08:29) Art sO2:??88 %??Low (08:29) ? Images 1. Left ventricular ejection fraction, by visual estimation, is 30 to 35%. 2. Moderately dilated left atrium. 3. Left atrial appendage visualized in multiple angles and no thrombus seen. 4. Small pericardial effusion, as described above. 5. Moderate mitral valve regurgitation. 6. Mild-moderate tricuspid regurgitation. 7. Moderate aortic valve sclerosis is present, with no evidence of aortic valve stenosis. 8. Non coronary cusp thickened. 9. The pulmonic valve is trileaflet, without evidence of stenosis or insufficiency. 10. Small plaque involving the descending aorta. Saline contrast bubble study was negative, with no evidence of any intracardiac shunt. 11.12. Lipomatous hypertrophy of the atrial septum. ?? Image ?CT Thorax w/o Contrast??01/13/2023 18:37 by Keshav RealTravelJosh. ? Reason For Exam ?? Abnormal CXR ?? [facility] ?? HISTORY:Abnormal CXR CT CHEST WITHOUT CONTRAST: RADIATION DOSE TECHNIQUE: Automated exposure control FINDINGS: Small pleural effusions are present with nonspecific scarring and atelectasis. No specific consolidative airspace disease. No gross pulmonary nodule or mass. The heart size is mildly enlarged. Small pericardial effusion is present. Atherosclerotic disease involves the aorta and its majorbranches. No significant thoracic adenopathy. The upper intra-abdominal organs are not imaged in their entirety. No gross abnormality is seen. The bones are osteopenic with generalized degenerative changes. IMPRESSION: Small pleural effusions with nonspecific scarring and atelectasis. See above formore details. This document was electronically signed by Shailesh Campo MD 01/14/2023 10:28 AM ?? Assessment/Plan Diagnoses 1. ??Acute combined systolic and diastolic CHF, NYHA class 3 ??(I50.41) 2. ??Acute cardiac pulmonary edema ??(I50.1) 3. ??Diabetes ??(E11.9) 4. ??Hyperlipemia ??(E78.5) 5. ??Atrial fibrillation ??(I48.91) 6. ??HTN (hypertension) ??(I10) 7. ??CAD in [place] artery ??(I25.10) 8. ??Presence of stent in coronary artery ??(Z95.5) ? Diagnoses 1. ??Acute combined systolic and diastolic CHF, NYHA class 3 ??(I50.41) 2. ??Acute cardiac pulmonary edema ??(I50.1) 3. ??Diabetes ??(E11.9) 4. ??Hyperlipemia ??(E78.5) 5. ??Atrial fibrillation ??(I48.91) 6. ??HTN (hypertension) ??(I10) 7. ??CAD in [place] artery ??(I25.10) 8. ??Presence of stent in coronary artery ??(Z95.5) ? 79-year-old male with significant past medical history of diabetes, hypertension, hyperlipidemia, atrial fibrillation??on anticoagulation with??Eliquis 5 mg p.o. twice daily,??systolic heart failure depressed LVEF 30- 35%, presented to the hospital acute??on chronic heart failure exacerbation. ?He was initiated on??diuretics with good effect. ??Net negative over the past??48 hours.. ?Patient appears well compensated on exam.?Continue Entresto low-dose ?Continue??spironolactone 25 mg p.o. daily starting tomorrow ?Continue Lasix??40 mg??9 AM and 2 PM. -We will order??acetazolamide??to 250 mg??p.o. daily??for 5 days ??? Continue home metoprolol 50 mg XL daily ?Strict I's and O's, daily weight, keep K greater than 4 mag??greater than 2 ?Continue amiodarone??100 mg??mg p.o. daily, continue Eliquis 5 mg p.o. twice daily for CVA??prophylaxis ?Continue high intensity statin ?Continue management of COPD per primary team ?Continue management of diabetes and hypothyroidism per primary team ?? Patient may be discharged home??from cardiology standpoint review.?? He needs to??have cardiac rehab??as outpatient.?? Outpatient follow-up with cardiology??this Sunday??at 2:30 PM.?? When he comes to clinic we will order labs??and review his medications??tolerance.?? He will need home oxygen. ?? Discussed case with ??Ranjit??from pulmonary team??and Dr. Plummer??primary??physician??and nursing staff.?? Discussed case with the patient and family. ?Order Date/Time ??Order Action ??Order Name ??Order Detail ??01/15/2023 09:41 ??Order ??acetaZOLAMIDE 250 mg Tab ??250 mg, 1 Tabs, Oral, q6H ? Electronically Signed By: Josh Yanes MD On: 01.15.2023 10:03 NET C DEVELOPER * Ranjit MODI, Ashutosh Quiroga: PERFORM Event Display: Progress Note-Physician Authored Date: [id number] Subjective Lab arterial blood gases on room??pH 7.48 PCO2 44 PO2??51??, home oxygen will be arranged patient use home CPAP machine??patient has been on??bumex 1 mg twice , he will be started on Diamox 125 dailyfor??few days ??patient is feeling better respiratory fields he is less dyspneic denies any chest pain denies any cough, no fever had been??reported??liters ? Admission data 77/M with COPD previously on Home O2 for hypoxemic resp failure. ??He uses home oxygen his O2 was removed 3 months ago??obstructive sleep apnea on home CPAP??,?congestive heart failure??reported ejection fraction of 35%,?? Non insulin Rxed DM2, HTN. HLD. Hypothyroidism. BPH. Depression , Hx Paroxysmal A Fib, recent cardio version??and recent hospitalization??he was admitted with shortness of breath and??acute combined systolic and diastolic congestive heart failure.?? He was noted to have hypoxemia on room air and pulmonary evaluation has been requested.?? He states he was prescribed oxygen several years ago for COPD,??but then he got better??and the oxygen was removed.?? Over the past2 or 3 months, he has noted progressive dyspnea on exertion, which became significantly worse??whenhe came to the hospital.?? He also had palpitations??and chest pain.?? On admission, he had atrial fibrillation with rapid ventricular response.?? Currently, he feels significantly better.?? He reports??dyspnea on exertion, but denies cough or sputum production at this time. ??He denies wheezing aswell. ?? 77 years old male with a history of chronic hypoxemic respiratory failure.?? He is on oxygen at home,??but is using??his 's oxygen machine.?? He has a history of COPD as well.? Review of Systems Review of Systems: Constitutional:??no fever, chills, ENT :??no sneezing, congestion, runny nose or sore throat. Skin: No rash or itching. Cardiovascular: see above Respiratory: see above Gastrointestinal: No?? nausea, vomiting or diarrhea. No abdominal pain Genitourinary: No burning micturition. No urinary frequency or incontinence. Neurologic: No headache, dizziness ,weakness, numbness Musculoskeletal: No muscle pain,joint pain or stiffness. Hematologic: No bleeding or bruising. Psychiatric: No depression or anxiety. ?? Allergies Allergies Allergies ?(Active and Proposed Allergies Only) [...] documented. ? Objective Measurements (most recent)?? Height 160.02 cm?Johnson RN, Jeanne ??01/12 18:18 Weight 89.30 kg?Calderón PCT, Sheryl ??01/15 04:30 Body Mass Index 34.87 kg/m2?Calderón PCT, Sheryl ??01/15 04:30 Scale Type Bed scale?Calderón PCT, Sheryl ??01/15 04:30 ? Vital Signs (24 hrs) Last Charted?? Minimum?? Maximum?? Temp?? 36.5?? 01/15/2023 07:13?? L??36.1?? 01/14/2023 11:31 ?? 37?? 01/14/2023 23:27?? Peripheral Pulse Rate?? 78?? 01/15/2023 07:13?? 69?? 01/14/2023 19:11 ?? 88?? 01/14/2023 11:31?? Resp Rate?? 18?? 01/15/2023 07:13?? 18?? 01/14/2023 11:31 ?? 18?? 01/14/2023 11:31?? SBP?? 112?? 01/15/2023 07:13?? 97?? 01/15/2023 04:21 ?? 123?? 01/14/2023 16:01?? DBP?? 61?? 01/15/2023 07:13?? L??55?? 01/14/2023 23:27 ?? 72?? 01/14/2023 11:31?? MAP?? 78?? 01/15/2023 07:13?? 70?? 01/15/2023 04:21 ?? 84?? 01/14/2023 11:31?? SpO2?? 97?? 01/15/2023 07:13?? 94?? 01/14/2023 16:01 ?? 99?? 01/14/2023 19:11?? O2 Flow Rate?? on 2 ? l/min? on 2 ? l/min O2 Therapy?? Nasal cannula?? Room air?? Nasal cannula ? I&O 24 Hour Total? 01/12 19:06 01/15 07:00 01/14 07:00 01/13 07:00 01/12 07:00 ?? 01/15 09:42 01/15 09:42 01/15 06:59 01/14 06:59 01/13 06:59 Intake ? 1640 ?0 ?820 ?820 ?0 Output ? 6525 ?0 ? 1050 ? 2275 ? 3200 Net Total ?-4885 ?0 ? -230 ?-1455 ?-3200 Stool Count ?1 ?0 ?0 ?1 ?0 ? Physical Exam General: Obesity BMI 34.1??alert, in no acute cardiopulmonary distress. Eyes:??Normal conjunctiva Ear, Nose and Throat: Normal nasal mucosa??, throat no erythema, ??oropharynx clear, Neck: Supple, no jugular venous distention trachea central thyroid not enlarged no cervical adenopathy,??large tongue with narrow posterior pharynx Respiratory: Decreased breath sounds bilaterally??symmetrical expansion??,normal percussion??,clearto auscultation . No wheezing, rales or rhonchi.??not Using accessory muscles, 10 thick neck Cardiovascular: Heart sounds Regular rate and rhythm, no murmurs,?? gallops. ??Good peripheral pulses??and perfusion Gastrointestinal: Abdomen soft, non-tender, non-distended. Normal bowel sounds. liver spleen not palpable. Genitourinary: No costovertebral angle tenderness. Neurologic: Cranial nerves intact. No focal neurological deficits. Moves all extremities spontaneously Skin: No rashes or lesions. No petechiae or purpura. No edema. Musculoskeletal: No cyanosis or clubbing. No gross deformities. . Lymphatics: No??adenopathy or tender lymph nodes Psychiatric : Cooperative with appropriate mood and affect _ Home Medications amiodarone (amiodarone 200 mg oral tablet)?200?Milligram?1?Tabs?By Mouth?Daily apixaban (apixaban 5 mg oral tablet)?5?Milligram?1?Tabs?By Mouth?2 Times a Day ascorbic acid (Vitamin C 500 mg oral capsule)?500?Milligram?1?Capsules?By Mouth?2Times a Day aspirin (aspirin 81 mg oral tablet, chewable)?81?Milligram?1?Tabs?Chewed?Daily atorvastatin (atorvastatin 40 mg oral tablet)?40?Milligram?1?Tabs?By Mouth?at Bedtime cyanocobalamin (cyanocobalamin 1000 mcg/mL injectable solution)?1,000?Microgram?Intramuscular?Every Sunday cyclobenzaprine (cyclobenzaprine 10 mg oral tablet)?10?Milligram?1?Tabs?By Mouth?at Bedtime docusate (docusate sodium 100 mg oral tablet)?100?Milligram?1?Tabs?By Mouth?2 Times a Day finasteride (Proscar 5 mg oral tablet)?5?Milligram?1?Tabs?By Mouth?Daily FLUoxetine (PROzac 20 mg oral capsule)?20?Milligram?1?Capsules?By Mouth?Daily furosemide (Lasix 80 mg oral tablet)?40?Milligram?0.5?Tabs?By Mouth?2 Times a Day levothyroxine (Synthroid 25 mcg (0.025 mg) oral tablet)?25?Microgram?1?Tabs?By Mouth?Daily loratadine (loratadine 10 mg oral tablet)?10?Milligram?1?Tabs?By Mouth?Daily metFORMIN (metFORMIN 500 mg oral tablet)?500?Milligram?1?Tabs?By Mouth?Daily?as needed?Blood Glucose (please specify)?for blood sugar over 200 metOLazone (metOLazone 5 mg oral tablet)?5?Milligram?1?Tabs?By Mouth?Daily metoprolol (Metoprolol Succinate ER 50 mg oral tablet, extended release)?50?Milligram?1?Tabs?By Mouth?at Bedtime multivitamin with minerals (Centrum Silver oral tablet)?1?Tabs?By Mouth?2 Times a Day pantoprazole (Protonix 20 mg oral enteric coated tablet)?20?Milligram?1?Tabs?By Mouth?Daily saw palmetto (saw palmetto 450 mg oral capsule)?450?Milligram?1?Each?By Mouth?2 Times a Day tamsulosin (Flomax 0.4 mg oral capsule)?0.4?Milligram?1?Capsules?By Mouth?2 Timesa Day ? Inpatient Medications Medications (31) Active SCHEDULED: (25) acetaZOLAMIDE 250 mg Tab (acetaZOLAMIDE) ??250 mg 1 Tabs, Oral, q6H amiodarone 200 mg Tab (amiodarone) ??200 mg 1 Tabs, Oral, Daily apixaban 5 mg Tab (apixaban) ??5 mg 1 Tabs, Oral, BID ascorbic acid 500 mg Tab (Vitamin C) ??500 mg 1 Tabs, Oral, BID aspirin 81 mg Chew Tab (aspirin) ??81 mg 1 Tabs, Chewed, Daily atorvastatin 40 mg Tab (atorvastatin) ??40 mg 1 Tabs, Oral, qHS cyanocobalamin 1000 mcg/mL INJ SOLN (cyanocobalamin) ??1,000 mcg 1 mL, IntraMuscular, qMonday dapagliflozin 10 mg Tab (Farxiga) ??10 mg 1 Tabs, Oral, Daily docusate sodium 100 mg Cap (docusate sodium) ??100 mg 1 Caps, Oral, BID finasteride 5 mg Tab (Proscar) ??5 mg 1 Tabs, Oral, Daily FLUoxetine 20 mg Cap (PROzac) ??20 mg 1 Caps, Oral, Daily Hypoglycemia Protocol Advisor ??Protocol, N/A, Daily insulin aspart NovoLOG 1 unit/ 0.01mL syringe (insulin aspart NovoLog correctional scale Low) ??sliding scale low, SubCutaneous, Before Meals and HS insulin aspart NovoLOG 1 unit/ 0.01mL syringe (insulin aspart NovoLog correctional scale Low) ??2-8units, SubCutaneous, Before Meals and HS levothyroxine 25 mcg (0.025 mg) Tab (Synthroid) ??25 mcg 1 Tabs, Oral, Daily loratadine 10 mg Tab (loratadine) ??10 mg 1 Tabs, Oral, Daily metoprolol succinate 50 mg XL Tab (Metoprolol Succinate ER) ??50 mg 1 Tabs, Oral, qHS Protocols (Potassium Chloride - Oral & IV) ??Protocol, N/A, Daily Protocols (Magnesium Oxide - Oral) ??Protocol, N/A, Daily Protocols (Magnesium Sulfate - IV) ??Protocol, N/A, Daily Protocols (Sodium Phosphate - Oral) ??Protocol, N/A, Daily Protocols (Sodium Phosphate - IV) ??Protocol, N/A, Daily Protocols (Potassium Chloride - Oral & IV) ??Protocol, N/A, Daily sacubitril-valsartan 24 mg-26 mg Tab (Entresto 24 mg-26 mg oral tablet) ??1 Tabs, Oral, BID tamsulosin 0.4 mg SA Cap (Flomax) ??0.4 mg 1 Caps, Oral, BID CONTINUOUS: (0) PRN: (6) acetaminophen 325 mg Tab (Tylenol) ??650 mg 2 Tabs, Oral, q4H dextromethorphan-guaiFENesin 20 mg-200 mg/10 mL (Robitussin DM) ??10 mL, Oral, q4H docusate sodium 100 mg Cap (Colace) ??100 mg 1 Caps, Oral, BID ipratropium 0.5mg Inh Janet 2.5 mL (ipratropium 0.02% inh janet) ??0.5 mg 2.5 mL, Inhalation, RT q6H ondansetron 4 mg/2 mL vial (Zofran) ??4 mg 2 mL, IV Push, q6H ondansetron 4 mg/2 mL vial (Zofran) ??4 mg 2 mL, IV Push, q4H ? 72 hour Antibiotic History No qualifying data available... ?? Results CBC, BMP, Coagulation Trend (last 4 resulted) WBC 9.10 ?? 01/14/2023 ??03:27 ? Hgb 14.20 ?? 01/14/2023 ??03:27 ? Hct 41.60 ?? 01/14/2023 ??03:27 ? Baso # Auto 0.0 ?? 01/14/2023 ??03:27 ? Baso % Auto 0.4 ?? 01/14/2023 ??03:27 ? Eos # Auto 0.2 ?? 01/14/2023 ??03:27 ? Eos % Auto 2.7 ?? 01/14/2023 ??03:27 ? Lymph # Auto 1.7 ?? 01/14/2023 ??03:27 ? Lymph % Auto 18.7 ??L?? 01/14/2023 ??03:27 ? Payne # Auto 1.2 ?? 01/14/2023 ??03:27 ? Payne % Auto 13.6 ?? 01/14/2023 ??03:27 ? Neut # Auto 5.9 ?? 01/14/2023 ??03:27 ? Neut % Auto 64.6 ?? 01/14/2023 ??03:27 ? Plt 221 ?? 01/14/2023 ??03:27 ? Glucose Level 186 ??H?? 01/14/2023 ??03:27 137 ??H?? 01/13/2023 ??04:22 ? Sodium 136 ?? 01/14/2023 ??03:27 137 ?? 01/13/2023 ??04:22 ? Potassium 4.6 ?? 01/15/2023 ??04:29 3.8 ?? 01/14/2023 ??03:27 3.2 ??L?? 01/13/2023 ??04:22 ?? Chloride 97 ??L?? 01/14/2023 ??03:27 99 ?? 01/13/2023 ??04:22 ? CO2 36 ??H?? 01/14/2023 ??03:27 37 ??H?? 01/13/2023 ??04:22 ? BUN 20 ??H?? 01/14/2023 ??03:27 13 ?? 01/13/2023 ??04:22 ? Creatinine 1.2 ?? 01/14/2023 ??03:27 1.0 ?? 01/13/2023 ??04:22 ? BUN/Creat Ratio 16.67 ?? 01/14/2023 ??03:27 13.00 ?? 01/13/2023 ??04:22 ? Mg Lvl 2.0 ?? 01/14/2023 ??03:27 2.2 ?? 01/13/2023 ??04:22 ? Phosphorus 4.1 ?? 01/14/2023 ??03:27 ? Calcium 9.7 ?? 01/14/2023 ??03:27 9.4 ?? 01/13/2023 ??04:22 ? Cardiology Labs BNP:??235 pg/mL??High (01/14/23 03:27:00) BNP:??505 pg/mL??Critical (01/13/23 04:22:00) Troponin TNIH: 18.8 ng/L (01/13/23 00:02:00) Troponin TNIH: 20.7 ng/L (01/12/23 21:08:00) Troponin TNIH: 21.5 ng/L (01/12/23 18:41:00) ?? Blood Gases (Last Within 24hrs) pH Arterial:??7.48??High (08:29) Art pO2:??51.1 mmHg??Low (08:29) Art pCO2: 44.8 mmHg (08:29) Art HCO3:??32 mmol/L??High (08:29) Art sO2:??88 %??Low (08:29) ? Assessment/Plan Diagnoses ?? Acute on chronic??respiratory failure , PO2 on room air is 51 Acute on chronic congestive heart failure with reduced ejection fraction 30-35 Atrial fibrillation with rapid ventricular response, electrical??cardioversion??January 04, 2022 Chronic obstructive pulmonary disease former heavy smoker Obstructive sleep apnea??and hypersomnia on on home CPAP Adult BMI 34.0-34.9 kg/sq m BPH Hypothyroid diabetes mellitus? Plan : ?? Arrange for home oxygen CPAP??12 cm H2O nighttime and as needed??daytime Continue??carvedilol and and the Bumex he will be given Diamox for 4 days bronchodilators only on as needed basis albuterol 1.25 mg every 8 hours Continue??DVT prophylaxis with Lovenox Discharge planning as per primary ? Electronically Signed By: Ashutosh Church MD On: 01.15.2023 09:54 NET C DEVELOPER * Kavitha MODI, Margi Dennison: PERFORM Event Display: Progress Note-Physician Authored Date: [id number] Subjective ?? Date of Service :?? 2/?? Hospitalist Progress Note ?? Chief Complaint : progressive SOB ?? Mr Albert Chang : 77/M with COPD on Home O2 , chronic hypoxemic resp failure.?? Ischemic Cardiomyopathy EF 30 to 35%. Moderate mitral valve regurgitation.Mild-moderate tricuspid regurgitation. Non insulin Rxed DM2, HTN. HLD. Hypothyroidism. BPH. Depression , Hx Paroxysmal A Fib involvement , admitted and Rxed?? 01/02 to 01/05 for A Fib RVR?? Post DC cardioversion??on 01/04/23 ??200 J,??converted to??sinus rhythm On continuous oral anticoagulation ?? 01/12/23 Heart ER Adm with SOB, orthopnea seen at office of [facility] Dr Yanes and sent to [facility] for Eval and Rx and Hospital Adm ?? 24 Hour Interval Course Cumulative? 4.85 L negative fluid balance. ??Appears comfortable, seated upright by side of bed.On O2 via NC. ??No chest pain, palpitations, dizziness, near syncope. No fever. No arrhythmia. Serial Troponins are negative. BNP 505 . ABG 7.45/ 45.5 /51.8 on RA??. BUN 13? K 3.2?? personally reviewed image CXR :?Diffuse bilateral lung opacities consistent with pulmonary edema, small right pleural effusion and right basilar atelectasis ?? . ??Pneumonia cannot be excluded. ??Rx deescalation, stopping Bumetanude, adding Spironolactone, Farxiga and low dose Sacubitril Valsartan. ??O2 supplementation arrangments upon DC pending., Antibiotics , Neb Rx Chief Complaint/Reason for Consultation Chief Complaint: Shortness of breath, COPD with exacerbation, and respiratory failure. ?? Past Medical History Active Problems(6) Atrial fibrillation CHF (congestive heart failure) COPD (chronic obstructive pulmonary disease) Diabetes HTN (hypertension) Hyperlipemia ? Past Surgical History Cholecystectomy;: 2020 Appendectomy;: 03/20/64 inguinal hernia repair ? Functional Assessments ? Objective Measurements (most recent)?? Height 160.02 cm?Johnson RN, Jeanne ??01/12 18:18 Weight 91.30 kg?Myers PCT, Aspen ??01/14 06:20 Body Mass Index 35.66 kg/m2?Myers PCT, [place] ??01/14 06:20 Scale Type Standing?Myers PCT, [place] ??01/14 06:20 ? Vital Signs (24 hrs) Last Charted?? Minimum?? Maximum?? Temp?? 36.9?? 01/14/2023 16:01?? 36.9?? 01/13/2023 19:00 ?? 37?? 01/13/2023 22:59?? Peripheral Pulse Rate?? 73?? 01/14/2023 16:01?? 67?? 01/14/2023 03:21 ?? 88?? 01/14/2023 11:31?? Resp Rate?? 18?? 01/14/2023 16:01?? 18?? 01/13/2023 19:00 ?? 18?? 01/13/2023 19:00?? SBP?? 123?? 01/14/2023 16:01?? 108?? 01/14/2023 11:31 ?? 133?? 01/13/2023 22:59?? DBP?? L??57?? 01/14/2023 16:01?? L??57?? 01/14/2023 16:01 ?? 74?? 01/13/2023 22:59?? MAP?? 79?? 01/14/2023 16:01?? 79?? 01/14/2023 16:01 ?? 94?? 01/13/2023 22:59?? SpO2?? 94?? 01/14/2023 16:01?? 94?? 01/14/2023 16:01 ?? 100?? 01/14/2023 07:25?? O2 Flow Rate? on 3 ? l/min O2 Therapy?? Room air?? Room air?? Nasal cannula ? I&O 24 Hour Total? 01/12 19:06 01/14 07:00 01/13 07:00 01/12 07:00 01/11 07:00 ?? 01/14 18:46 01/14 18:46 01/14 06:59 01/13 06:59 01/12 06:59 Intake ? 1640 ?820 ?820 ?0 ?0 Output ? 6525 ? 1050 ? 2275 ? 3200 ?0 Net Total ?-4885 ? -230 ?-1455 ?-3200 ?0 Stool Count ?1 ?0 ?1 ?0 ?0 ? Precautions No Precautions documented.? Mental Status Exam ? Basic ADLs ? Stroke Assessments Vanderbilt Coma Scale Eye Opening Response Vanderbilt: Spontaneously (01/14/23 08:00:00) Best Verbal Response Black: Oriented and converses (01/14/23 08:00:00) Best Motor Response Vanderbilt: Obeys commands (01/14/23 08:00:00) Vanderbilt Coma Score: 15 (01/14/23 08:00:00) ? Physical Exam General: Alert, in no acute cardiopulmonary distress. On O2 via NC F/D F.N Mental Status: Oriented to person, place and time. Head: Normocephalic. Eyes: Pupils are equal, round and reactive to light. . Ear, Nose and Throat: Oropharynx clear, mucous membranes moist. Tight posterior pharynx. . Trachea midline. Neck: Supple, Full range of motion.Fullness of jugular veins Respiratory:?? Fair air entry?? CBVBS . No wheezing, rales or rhonchi. Cardiovascular: Heart sounds normal. No thrills. Regular rate and rhythm, no murmurs, rubs or gallops. Gastrointestinal: Abdomen soft, obese non-tender, non-distended. Normal bowel sounds. Genitourinary: No costovertebral angle tenderness. Neurologic: . No focal neurological deficits. . Skin: No rashes or lesions. No petechiae or purpura. Trace edema. Musculoskeletal: No cyanosis or clubbing. No gross deformities. Normal range of motion _ Inpatient Medications Medications (34) Active SCHEDULED: (28) amiodarone 200 mg Tab (amiodarone) ??200 mg 1 Tabs, Oral, Daily apixaban 5 mg Tab (apixaban) ??5 mg 1 Tabs, Oral, BID ascorbic acid 500 mg Tab (Vitamin C) ??500 mg 1 Tabs, Oral, BID aspirin 81 mg Chew Tab (aspirin) ??81 mg 1 Tabs, Chewed, Daily atorvastatin 40 mg Tab (atorvastatin) ??40 mg 1 Tabs, Oral, qHS cyanocobalamin 1000 mcg/mL INJ SOLN (cyanocobalamin) ??1,000 mcg 1 mL, IntraMuscular, qMonday dapagliflozin 10 mg Tab (Farxiga) ??10 mg 1 Tabs, Oral, Daily docusate sodium 100 mg Cap (docusate sodium) ??100 mg 1 Caps, Oral, BID famotidine 20 mg Tab (Pepcid) ??20 mg 1 Tabs, Oral, BID finasteride 5 mg Tab (Proscar) ??5 mg 1 Tabs, Oral, Daily FLUoxetine 20 mg Cap (PROzac) ??20 mg 1 Caps, Oral, Daily Hypoglycemia Protocol Advisor ??Protocol, N/A, Daily insulin aspart NovoLOG 1 unit/ 0.01mL syringe (insulin aspart NovoLog correctional scale Low) ??sliding scale low, SubCutaneous, Before Meals and HS insulin aspart NovoLOG 1 unit/ 0.01mL syringe (insulin aspart NovoLog correctional scale Low) ??2-8units, SubCutaneous, Before Meals and HS levothyroxine 25 mcg (0.025 mg) Tab (Synthroid) ??25 mcg 1 Tabs, Oral, Daily loratadine 10 mg Tab (loratadine) ??10 mg 1 Tabs, Oral, Daily metoprolol succinate 50 mg XL Tab (Metoprolol Succinate ER) ??50 mg 1 Tabs, Oral, qHS nitroglycerin 2% Top Oint 1 gm (Nitro-Bid) ??1 inch, Topical, q6H Non-Formulary Medication (saw palmetto 450 mg oral capsule) ??450 mg, Oral, BID Protocols (Potassium Chloride - Oral & IV) ??Protocol, N/A, Daily Protocols (Magnesium Oxide - Oral) ??Protocol, N/A, Daily Protocols (Magnesium Sulfate - IV) ??Protocol, N/A, Daily Protocols (Sodium Phosphate - Oral) ??Protocol, N/A, Daily Protocols (Sodium Phosphate - IV) ??Protocol, N/A, Daily Protocols (Potassium Chloride - Oral & IV) ??Protocol, N/A, Daily sacubitril-valsartan 24 mg-26 mg Tab (Entresto 24 mg-26 mg oral tablet) ??1 Tabs, Oral, BID spironolactone 25 mg Tab (spironolactone) ??25 mg 1 Tabs, Oral, Daily tamsulosin 0.4 mg SA Cap (Flomax) ??0.4 mg 1 Caps, Oral, BID CONTINUOUS: (0) PRN: (6) acetaminophen 325 mg Tab (Tylenol) ??650 mg 2 Tabs, Oral, q4H dextromethorphan-guaiFENesin 20 mg-200 mg/10 mL (Robitussin DM) ??10 mL, Oral, q4H docusate sodium 100 mg Cap (Colace) ??100 mg 1 Caps, Oral, BID ipratropium 0.5mg Inh Janet 2.5 mL (ipratropium 0.02% inh janet) ??0.5 mg 2.5 mL, Inhalation, RT q6H ondansetron 4 mg/2 mL vial (Zofran) ??4 mg 2 mL, IV Push, q6H ondansetron 4 mg/2 mL vial (Zofran) ??4 mg 2 mL, IV Push, q4H ? 72 hour Antibiotic History No qualifying data available... ? Durable Medical Equipment ? Results Recent Labs Cardiac BNP 235.0 pg/mL (High)?? 01/14/2023 03:27 Troponin TNIH 18.8 ng/L (Normal)?? 01/13/2023 00:02 ?? General Chemistry Glucose Level 186 mg/dL (High)?? 01/14/2023 03:27 POC Glucose 111 mg/dL (High)?? 01/14/2023 16:01 Sodium 136 mmol/L (Normal)?? 01/14/2023 03:27 Potassium 3.8 mmol/L (Normal)?? 01/14/2023 03:27 Chloride 97 mmol/L (Low)?? 01/14/2023 03:27 CO2 36 mmol/L (High)?? 01/14/2023 03:27 Anion Gap 3 mmol/L (Normal)?? 01/14/2023 03:27 BUN 20 mg/dL (High)?? 01/14/2023 03:27 Creatinine 1.2 mg/dL (Normal)?? 01/14/2023 03:27 BUN/Creat Ratio 16.67 Ratio (Normal)?? 01/14/2023 03:27 Calcium 9.7 mg/dL (Normal)?? 01/14/2023 03:27 Mg Lvl 2.0 mg/dL (Normal)?? 01/14/2023 03:27 Phosphorus 4.1 mg/dL (Normal)?? 01/14/2023 03:27 Estimated Creatinine Clearance 40.83 mL/min ()?? 01/14/2023 03:49 eGFR Cr 62 mL/min/1.73m2 (N/A)?? 01/14/2023 03:27 eGFR Pediatric Not Reported mL/min/1.73m2 (N/A)?? 01/14/2023 03:27 MAR Glucose Result 137 ()?? 01/14/2023 11:40 ?? General Hematology WBC 9.10 x10e3/mcL (Normal)?? 01/14/2023 03:27 RBC 4.32 x10e6/mcL (Low)?? 01/14/2023 03:27 Hgb 14.20 gm/dL (Normal)?? 01/14/2023 03:27 Hct 41.60 % (Normal)?? 01/14/2023 03:27 MCV 96.2 Femtoliters (Normal)?? 01/14/2023 03:27 MCH 32.80 pg (Normal)?? 01/14/2023 03:27 MCHC 34.10 gm/dL (Normal)?? 01/14/2023 03:27 RDW-CV 14.20 % (Normal)?? 01/14/2023 03:27 RDW-SD 48.10 Femtoliters (High)?? 01/14/2023 03:27 Plt 221 x10e3/mcL (Normal)?? 01/14/2023 03:27 MPV 8.20 Femtoliters (Normal)?? 01/14/2023 03:27 Neut % Auto 64.6 % (Normal)?? 01/14/2023 03:27 Lymph % Auto 18.7 % (Low)?? 01/14/2023 03:27 Payne % Auto 13.6 % (Normal)?? 01/14/2023 03:27 Eos % Auto 2.7 % (Normal)?? 01/14/2023 03:27 Baso % Auto 0.4 % (Normal)?? 01/14/2023 03:27 Neut # Auto 5.9 x10e3/mcL (Normal)?? 01/14/2023 03:27 Lymph # Auto 1.7 x10e3/mcL (Normal)?? 01/14/2023 03:27 Payne # Auto 1.2 x10e3/mcL (Normal)?? 01/14/2023 03:27 Eos # Auto 0.2 x10e3/mcL (Normal)?? 01/14/2023 03:27 Baso # Auto 0.0 x10e3/mcL (Normal)?? 01/14/2023 03:27 ? Abnormal Labs ?? Cardiac ??BNP ??235.0 pg/mL (High) ??01/14/2023 03:27 ? General Chemistry ??BUN ??20 mg/dL (High) ??01/14/2023 03:27 ??CO2 ??36 mmol/L (High) ??01/14/2023 03:27 ??Chloride ??97 mmol/L (Low) ??01/14/2023 03:27 ??Glucose Level ??186 mg/dL (High) ??01/14/2023 03:27 ??POC Glucose ??111 mg/dL (High) ??01/14/2023 16:01 ? General Hematology ??Lymph % Auto ??18.7 % (Low) ??01/14/2023 03:27 ??RBC ??4.32 x10e6/mcL (Low) ??01/14/2023 03:27 ??RDW-SD ??48.10 Femtoliters (High) ??01/14/2023 03:27 ? Note: Critical results are displayed in red. ? CBC, BMP, Coagulation Trend (last 4 resulted) WBC 9.10 ?? 01/14/2023 ??03:27 ? Hgb 14.20 ?? 01/14/2023 ??03:27 ? Hct 41.60 ?? 01/14/2023 ??03:27 ? Baso # Auto 0.0 ?? 01/14/2023 ??03:27 ? Baso % Auto 0.4 ?? 01/14/2023 ??03:27 ? Eos # Auto 0.2 ?? 01/14/2023 ??03:27 ? Eos % Auto 2.7 ?? 01/14/2023 ??03:27 ? Lymph # Auto 1.7 ?? 01/14/2023 ??03:27 ? Lymph % Auto 18.7 ??L?? 01/14/2023 ??03:27 ? Payne # Auto 1.2 ?? 01/14/2023 ??03:27 ? Payne % Auto 13.6 ?? 01/14/2023 ??03:27 ? Neut # Auto 5.9 ?? 01/14/2023 ??03:27 ? Neut % Auto 64.6 ?? 01/14/2023 ??03:27 ? Plt 221 ?? 01/14/2023 ??03:27 ? Glucose Level 186 ??H?? 01/14/2023 ??03:27 137 ??H?? 01/13/2023 ??04:22 ? Sodium 136 ?? 01/14/2023 ??03:27 137 ?? 01/13/2023 ??04:22 ? Potassium 3.8 ?? 01/14/2023 ??03:27 3.2 ??L?? 01/13/2023 ??04:22 ? Chloride 97 ??L?? 01/14/2023 ??03:27 99 ?? 01/13/2023 ??04:22 ? CO2 36 ??H?? 01/14/2023 ??03:27 37 ??H?? 01/13/2023 ??04:22 ? BUN 20 ??H?? 01/14/2023 ??03:27 13 ?? 01/13/2023 ??04:22 ? Creatinine 1.2 ?? 01/14/2023 ??03:27 1.0 ?? 01/13/2023 ??04:22 ? BUN/Creat Ratio 16.67 ?? 01/14/2023 ??03:27 13.00 ?? 01/13/2023 ??04:22 ? Mg Lvl 2.0 ?? 01/14/2023 ??03:27 2.2 ?? 01/13/2023 ??04:22 ? Phosphorus 4.1 ?? 01/14/2023 ??03:27 ? Calcium 9.7 ?? 01/14/2023 ??03:27 9.4 ?? 01/13/2023 ??04:22 ? Blood Glucose Trend Glucose Level:??186 mg/dL??High (01/14/23 03:27:00) POC Glucose:??111 mg/dL??High (01/14/23 16:01:00) POC Glucose:??137 mg/dL??High (01/14/23 11:32:00) POC Glucose:??116 mg/dL??High (01/14/23 06:18:00) POC Glucose:??155 mg/dL??High (01/13/23 20:24:00) ? CBC (Last Within 24hrs) WBC: 9.1 x10e3/mcL (03:27) Hgb: 14.2 gm/dL (03:27) Hct: 41.6 % (03:27) Plt: 221 x10e3/mcL (03:27) ?? Differential (Last Within 24hrs)?? - Automated -?? Neut % Auto: 64.6 % (03:27) Lymph % Auto:??18.7 %??Low (03:27) Payne % Auto: 13.6 % (03:27) Eos % Auto: 2.7 % (03:27) Baso % Auto: 0.4 % (03:27) Neut # Auto: 5.9 x10e3/mcL (03:27) Lymph # Auto: 1.7 x10e3/mcL (03:27) Payne # Auto: 1.2 x10e3/mcL (03:27) Eos # Auto: 0.2 x10e3/mcL (03:27) Baso # Auto: 0 x10e3/mcL (03:27) ? BMP, Mg, and Phos (Last Within 24hrs) Sodium: 136 mmol/L (03:27) Potassium: 3.8 mmol/L (03:27) Chloride:??97 mmol/L??Low (:) CO2:??36 mmol/L??High (03:) BUN:??20 mg/dL??High (:) Creatinine: 1.2 mg/dL (03:27) Glucose Level:??186 mg/dL??High (:) Calcium: 9.7 mg/dL (:27) Mg Lvl: 2 mg/dL (03:27) Phosphorus: 4.1 mg/dL (03:27) ? Cardiology Labs BNP:??235 pg/mL??High (01/14/23 03:27:00) BNP:??505 pg/mL??Critical (01/13/23 04:22:00) Troponin TNIH: 18.8 ng/L (01/13/23 00:02:00) Troponin TNIH: 20.7 ng/L (01/12/23 21:08:00) Troponin TNIH: 21.5 ng/L (01/12/23 18:41:00) ? Assessment/Plan Diagnoses 1. ??Acute combined systolic and diastolic CHF, NYHA class 3 ??(I50.41) 2. ??Acute cardiac pulmonary edema ??(I50.1) 3. ??Diabetes ??(E11.9) 4. ??Hyperlipemia ??(E78.5) 5. ??Atrial fibrillation ??(I48.91) 6. ??HTN (hypertension) ??(I10) 7. ??CAD in [place] artery ??(I25.10) 8. ??Presence of stent in coronary artery ??(Z95.5) ?? Assessment/Plan Diagnoses 1. ??Acute combined systolic and diastolic CHF, NYHA class 3 ??(I50.41) 2. ??Acute cardiac pulmonary edema ??(I50.1) 3. ??Diabetes ??(E11.9) 4. ??Hyperlipemia ??(E78.5) 5. ??Atrial fibrillation ??(I48.91) 6. ??HTN (hypertension) ??(I10) 7. ??CAD in [place] artery ??(I25.10) 8. ??Presence of stent in coronary artery ??(Z95.5) Acute on Chronic Hypercapneic Hypoxemic Respiratory ??Failure Obesity BMI 36.67 JAME on CKD Stage II ?? Plan : Inpatient Admission Telemetry Monitoring Oxygen Supplementation Aggressive Diuresis Salt and Fluid Restriction Strict Intake and Output Nebulizer Rx Empiric Antibiotics ?? amiodarone 200 mg Tab (amiodarone) ??200 mg 1 Tabs, Oral, Daily apixaban 5 mg Tab (apixaban) ??5 mg 1 Tabs, Oral, BID ascorbic acid 500 mg Tab (Vitamin C) ??500 mg 1 Tabs, Oral, BID aspirin 81 mg Chew Tab (aspirin) ??81 mg 1 Tabs, Chewed, Daily atorvastatin 40 mg Tab (atorvastatin) ??40 mg 1 Tabs, Oral, qHS cyanocobalamin 1000 mcg/mL INJ SOLN (cyanocobalamin) ??1,000 mcg 1 mL, IntraMuscular, qMonday dapagliflozin 10 mg Tab (Farxiga) ??10 mg 1 Tabs, Oral, Daily docusate sodium 100 mg Cap (docusate sodium) ??100 mg 1 Caps, Oral, BID famotidine 20 mg Tab (Pepcid) ??20 mg 1 Tabs, Oral, BID finasteride 5 mg Tab (Proscar) ??5 mg 1 Tabs, Oral, Daily FLUoxetine 20 mg Cap (PROzac) ??20 mg 1 Caps, Oral, Daily Hypoglycemia Protocol Advisor ??Protocol, N/A, Daily insulin aspart NovoLOG 1 unit/ 0.01mL syringe (insulin aspart NovoLog correctional scale Low) ??sliding scale low, SubCutaneous, Before Meals and HS insulin aspart NovoLOG 1 unit/ 0.01mL syringe (insulin aspart NovoLog correctional scale Low) ??2-8units, SubCutaneous, Before Meals and HS levothyroxine 25 mcg (0.025 mg) Tab (Synthroid) ??25 mcg 1 Tabs, Oral, Daily loratadine 10 mg Tab (loratadine) ??10 mg 1 Tabs, Oral, Daily metoprolol succinate 50 mg XL Tab (Metoprolol Succinate ER) ??50 mg 1 Tabs, Oral, qHS nitroglycerin 2% Top Oint 1 gm (Nitro-Bid) ??1 inch, Topical, q6H Non-Formulary Medication (saw palmetto 450 mg oral capsule) ??450 mg, Oral, BID Protocols (Potassium Chloride - Oral & IV) ??Protocol, N/A, Daily Protocols (Magnesium Oxide - Oral) ??Protocol, N/A, Daily Protocols (Magnesium Sulfate - IV) ??Protocol, N/A, Daily Protocols (Sodium Phosphate - Oral) ??Protocol, N/A, Daily Protocols (Sodium Phosphate - IV) ??Protocol, N/A, Daily Protocols (Potassium Chloride - Oral & IV) ??Protocol, N/A, Daily sacubitril-valsartan 24 mg-26 mg Tab (Entresto 24 mg-26 mg oral tablet) ??1 Tabs, Oral, BID spironolactone 25 mg Tab (spironolactone) ??25 mg 1 Tabs, Oral, Daily tamsulosin 0.4 mg SA Cap (Flomax) ??0.4 mg 1 Caps, Oral, BID ?? GI and DVT Prophylaxis ?? Condition stable ??Prognosis?? fair ?? Further as per clinical evolution ?? Dispo Home with Family care when stable/ Home Oxygen ?Order Date/Time ??Order Action ??Order Name ??Order Detail ??01/14/2023 16:02 ??Order ??POC Glu ??Blood, Collected Y/N, RT, RT - Routine, 01/14/23 16:01:41 NET C DEVELOPER ??01/14/2023 11:35 ??Order ??POC Glu ??Blood, Collected Y/N, RT, RT - Routine, 01/14/23 11:32:18 NET C DEVELOPER ??01/14/2023 06:52 ??Order ??POC Glu ??Blood, Collected Y/N, RT, RT - Routine, 01/14/23 6:18:39 NET C DEVELOPER ??01/14/2023 03:32 ??Order ??Auto Diff ??Blood, Nurse collect, Collected, AM Draw collect, 01/14/23 3:27:00 NET C DEVELOPER, Stop date 01/14/23 3:27:00 NET C DEVELOPER ? Electronically Signed By: Margi Plummer MD On: 01.14.2023 18:57 NET C DEVELOPER * Ricardo MODI, Gabriel Dc: PERFORM, MODIFY Event Display: Progress Note-Physician Authored Date: [id number] Subjective Doing okay today. ??Denies chest pain things or pressure. Shortness of breath significantly improved compared to prior. Well compensated on exam No events on telemetry ?? Negative -1.5 L over the past 24 hours. Chief Complaint/Reason for Consultation Chief Complaint: Chest pain and shortness of breath. Elevated BNP ?? Objective Vital Signs (24 hrs) Last Charted?? Minimum?? Maximum?? Temp?? 36.8?? 01/14/2023 03:21?? L??36.4?? 01/13/2023 11:30 ?? 37?? 01/13/2023 22:59?? Peripheral Pulse Rate?? 77?? 01/14/2023 07:25?? 67?? 01/13/2023 11:30 ?? 77?? 01/14/2023 07:25?? Resp Rate?? 18?? 01/14/2023 07:25?? 18?? 01/13/2023 11:30 ?? 20?? 01/13/2023 16:07?? SBP?? 110?? 01/14/2023 07:25?? 106?? 01/13/2023 11:30 ?? 133?? 01/13/2023 22:59?? DBP?? 67?? 01/14/2023 07:25?? 65?? 01/13/2023 16:07 ?? 74?? 01/13/2023 22:59?? MAP?? 81?? 01/14/2023 07:25?? 80?? 01/13/2023 11:30 ?? 94?? 01/13/2023 22:59?? SpO2?? 100?? 01/14/2023 07:25?? 97?? 01/13/2023 19:00 ?? 100?? 01/14/2023 07:25?? O2 Flow Rate?? on 3 ? l/min?? on 3 ? l/min?? on 3 ? l/min O2 Therapy?? Nasal cannula?? Nasal cannula?? Nasal cannula ? I&O 24 Hour Total? 01/12 19:06 01/14 07:00 01/13 07:00 01/12 07:00 01/11 07:00 ?? 01/14 11:07 01/14 11:07 01/14 06:59 01/13 06:59 01/12 06:59 Intake ?820 ?0 ?820 ?0 ?0 Output ? 5475 ?0 ? 2275 ? 3200 ?0 Net Total ?-4655 ?0 ?-1455 ?-3200 ?0 Stool Count ?1 ?0 ?1 ?0 ?0 ? Physical Exam General: Alert, in no acute cardiopulmonary distress. Mental Status: Oriented to person, place and time. Normal affect. Respiratory: Decreased breath sounds in bilateral lower bases Cardiovascular: Heart sounds normal. No thrills. Regular rate and rhythm, no murmurs, rubs or gallops. Gastrointestinal: Abdomen soft, non-tender, non-distended. Normal bowel sounds. No pulsatile mass. No hepatosplenomegaly. Genitourinary: No costovertebral angle tenderness.. Skin: No rashes or lesions. No petechiae or purpura. No eema. Musculoskeletal: No cyanosis or clubbing. No gross deformities. Normal range of motion. _ Inpatient Medications Medications (34) Active SCHEDULED: (28) amiodarone 200 mg Tab (amiodarone) ??200 mg 1 Tabs, Oral, Daily apixaban 5 mg Tab (apixaban) ??5 mg 1 Tabs, Oral, BID ascorbic acid 500 mg Tab (Vitamin C) ??500 mg 1 Tabs, Oral, BID aspirin 81 mg Chew Tab (aspirin) ??81 mg 1 Tabs, Chewed, Daily atorvastatin 40 mg Tab (atorvastatin) ??40 mg 1 Tabs, Oral, qHS cyanocobalamin 1000 mcg/mL INJ SOLN (cyanocobalamin) ??1,000 mcg 1 mL, IntraMuscular, qMonday dapagliflozin 10 mg Tab (Farxiga) ??10 mg 1 Tabs, Oral, Daily docusate sodium 100 mg Cap (docusate sodium) ??100 mg 1 Caps, Oral, BID famotidine 20 mg Tab (Pepcid) ??20 mg 1 Tabs, Oral, BID finasteride 5 mg Tab (Proscar) ??5 mg 1 Tabs, Oral, Daily FLUoxetine 20 mg Cap (PROzac) ??20 mg 1 Caps, Oral, Daily Hypoglycemia Protocol Advisor ??Protocol, N/A, Daily insulin aspart NovoLOG 1 unit/ 0.01mL syringe (insulin aspart NovoLog correctional scale Low) ??sliding scale low, SubCutaneous, Before Meals and HS insulin aspart NovoLOG 1 unit/ 0.01mL syringe (insulin aspart NovoLog correctional scale Low) ??2-8units, SubCutaneous, Before Meals and HS levothyroxine 25 mcg (0.025 mg) Tab (Synthroid) ??25 mcg 1 Tabs, Oral, Daily loratadine 10 mg Tab (loratadine) ??10 mg 1 Tabs, Oral, Daily metoprolol succinate 50 mg XL Tab (Metoprolol Succinate ER) ??50 mg 1 Tabs, Oral, qHS nitroglycerin 2% Top Oint 1 gm (Nitro-Bid) ??1 inch, Topical, q6H Non-Formulary Medication (saw palmetto 450 mg oral capsule) ??450 mg, Oral, BID Protocols (Potassium Chloride - Oral & IV) ??Protocol, N/A, Daily Protocols (Magnesium Oxide - Oral) ??Protocol, N/A, Daily Protocols (Magnesium Sulfate - IV) ??Protocol, N/A, Daily Protocols (Sodium Phosphate - Oral) ??Protocol, N/A, Daily Protocols (Sodium Phosphate - IV) ??Protocol, N/A, Daily Protocols (Potassium Chloride - Oral & IV) ??Protocol, N/A, Daily sacubitril-valsartan 24 mg-26 mg Tab (Entresto 24 mg-26 mg oral tablet) ??1 Tabs, Oral, BID spironolactone 25 mg Tab (spironolactone) ??25 mg 1 Tabs, Oral, Daily tamsulosin 0.4 mg SA Cap (Flomax) ??0.4 mg 1 Caps, Oral, BID CONTINUOUS: (0) PRN: (6) acetaminophen 325 mg Tab (Tylenol) ??650 mg 2 Tabs, Oral, q4H albuterol-ipratropium Inh Janet 3 mL (ipratropium-albuterol) ??3 mL, NEB, q4H dextromethorphan-guaiFENesin 20 mg-200 mg/10 mL (Robitussin DM) ??10 mL, Oral, q4H docusate sodium 100 mg Cap (Colace) ??100 mg 1 Caps, Oral, BID ondansetron 4 mg/2 mL vial (Zofran) ??4 mg 2 mL, IV Push, q6H ondansetron 4 mg/2 mL vial (Zofran) ??4 mg 2 mL, IV Push, q4H ? Results CBC (Last Within 24hrs) WBC: 9.1 x10e3/mcL (03:27) Hgb: 14.2 gm/dL (03:27) Hct: 41.6 % (03:) Plt: 221 x10e3/mcL (:) ?? Differential (Last Within 24hrs)?? - Automated -?? Neut % Auto: 64.6 % (03:27) Lymph % Auto:??18.7 %??Low (03:) Payne % Auto: 13.6 % (:) Eos % Auto: 2.7 % (:) Baso % Auto: 0.4 % (03:27) Neut # Auto: 5.9 x10e3/mcL (03:27) Lymph # Auto: 1.7 x10e3/mcL (03:27) Payne # Auto: 1.2 x10e3/mcL (03:27) Eos # Auto: 0.2 x10e3/mcL (03:27) Baso # Auto: 0 x10e3/mcL (03:27) ? BMP, Mg, and Phos (Last Within 24hrs) Sodium: 136 mmol/L (:) Potassium: 3.8 mmol/L (:27) Chloride:??97 mmol/L??Low (03:27) CO2:??36 mmol/L??High (03:) BUN:??20 mg/dL??High (:) Creatinine: 1.2 mg/dL (:27) Glucose Level:??186 mg/dL??High (03:27) Calcium: 9.7 mg/dL (03:27) Mg Lvl: 2 mg/dL (:27) Phosphorus: 4.1 mg/dL (03:27) ? Cardiology Labs BNP:??235 pg/mL??High (01/14/23 03:27:00) BNP:??505 pg/mL??Critical (01/13/23 04:22:00) Troponin TNIH: 18.8 ng/L (01/13/23 00:02:00) Troponin TNIH: 20.7 ng/L (01/12/23 21:08:00) Troponin TNIH: 21.5 ng/L (01/12/23 18:41:00) ? Assessment/Plan Diagnoses 1. ??Acute combined systolic and diastolic CHF, NYHA class 3 ??(I50.41) 2. ??Acute cardiac pulmonary edema ??(I50.1) 3. ??Diabetes ??(E11.9) 4. ??Hyperlipemia ??(E78.5) 5. ??Atrial fibrillation ??(I48.91) 6. ??HTN (hypertension) ??(I10) 7. ??CAD in [place] artery ??(I25.10) 8. ??Presence of stent in coronary artery ??(Z95.5) ? 79-year-old male with significant past medical history of diabetes, hypertension, hyperlipidemia, atrial fibrillation??on anticoagulation with??Eliquis 5 mg p.o. twice daily,??systolic heart failure depressed LVEF 30- 35%, presented to the hospital acute??on chronic heart failure exacerbation. ?He was initiated on??diuretics with good effect. ??Net negative -1.4 L over the past 24 hours overall net negative -4.5 L over the past??48 hours.. ?Patient appears well compensated on exam. ??We will discontinue Bumex??at this time. ?Initiate Entresto low-dose first dose tonight ?Initiate Farxiga??10 mg??p.o. daily ?will initiate??spironolactone 25 mg p.o. daily starting tomorrow ???We will consider as needed Lasix??for increased weight as outpatient ??? Continue home metoprolol 50 mg XL daily ?Strict I's and O's, daily weight, keep K greater than 4 mag??greater than 2 ?With regards to atrial fibrillation,??continue amiodarone 200 mg p.o. daily, continue Eliquis 5 mg p.o. twice daily for CVA??prophylaxis ?Continue high intensity statin ?Continue management of COPD per primary team ?Continue management of diabetes and hypothyroidism per primary team ?? I ??Dr. Gabriel Silva MD, who??has independently??and personally examined the patient and reviewed the patient's chart??for recent labs, imaging, exam findings, and treatment progress.?? I attest that??I spent??35 minutes for this visit. ?? Gabriel Silva MD Interventional Cardiology?? [facility] Cardiology ? Electronically Signed By: Gabriel Silva MD On: 01.14.2023 14:01 NET C DEVELOPER * Kavitha MODI, Margi Dennison: PERFORM Event Display: Progress Note-Physician Authored Date: [id number] Subjective ? Date of Service :?? 2??/?? Hospitalist Progress Note ?? Chief Complaint : progressive SOB ?? Mr Albert Chang : 77/M with COPD on Home O2 , chronic hypoxemic resp failure.?? Ischemic Cardiomyopathy EF 30 to 35%. Moderate mitral valve regurgitation.Mild-moderate tricuspid regurgitation. Non insulin Rxed DM2, HTN. HLD. Hypothyroidism. BPH. Depression , Hx Paroxysmal A Fib involvement , admitted and Rxed?? 01/02 to 01/05 for A Fib RVR?? Post DC cardioversion??on 01/04/23 ??200 J,??converted to??sinus rhythm On continuous oral anticoagulation ?? 01/12/23 Heart ER Adm with SOB, orthopnea seen at office of Heart [facility] Dr Yanes and sent to [facility] for Eval and Rx and Hospital Adm ?? 24 Hour Interval Course Cumulative ??Appears comfortable, seated upright by side of bed. On O2 via NC. ??No chest pain, palpitations, dizziness, near syncope. No fever. No arrhythmia. Serial Troponins are negative. BNP 505 . ABG 7.45/ 45.5 /51.8 on RA??. BUN 13? K 3.2?? personally reviewed image CXR :?Diffuse bilateral lung opacities consistent with pulmonary edema, small right pleural effusion and right basilar atelectasis ?? . ??Pneumonia cannot be excluded. On Diuresis, O2 supplementation, Antibiotics , Neb Rx Chief Complaint/Reason for Consultation Chief Complaint: Chest pain and shortness of breath. Elevated BNP ?? Past Medical History Active Problems(5) CHF (congestive heart failure) COPD (chronic obstructive pulmonary disease) Diabetes HTN (hypertension) Hyperlipemia ? Past Surgical History Cholecystectomy;: 2020 Appendectomy;: 03/20/64 inguinal hernia repair ? Functional Assessments ? Objective Measurements (most recent)?? Height 160.02 cm?Alex RN, Jeanne ??01/12 18:18 Weight 93.90 kg?Myers PCT, [place] ??01/13 07:18 Body Mass Index 36.67 kg/m2?Myers PCT, [place] ??01/13 07:18 Scale Type Standing?Myers PCT, [place] ??01/13 07:18 ? Vital Signs (24 hrs) Last Charted?? Minimum?? Maximum?? Temp?? L??36.4?? 01/13/2023 11:30?? 36.8?? 01/12/2023 18:00 ?? 36.8?? 01/12/2023 18:00?? Heart Rate Monitored?? 96?? 01/12/2023 20:07?? 94?? 01/12/2023 19:00 ?? 96?? 01/12/2023 20:00?? Resp Rate?? 18?? 01/13/2023 11:30?? 18?? 01/12/2023 19:00 ?? 18?? 01/12/2023 19:00?? SBP?? 106?? 01/13/2023 11:30?? 105?? 01/13/2023 03:36 ?? H??144?? 01/12/2023 19:00?? DBP?? 67?? 01/13/2023 11:30?? 67?? 01/13/2023 11:30 ?? H??88?? 01/12/2023 19:00?? MAP?? 80?? 01/13/2023 11:30?? 80?? 01/13/2023 03:36 ?? 110?? 01/12/2023 19:00?? SpO2?? 99?? 01/13/2023 11:30?? L??92?? 01/12/2023 19:00 ?? 99?? 01/12/2023 20:00?? O2 Flow Rate?? on 3 ? l/min? O2 Therapy?? Nasal cannula?? Room air?? Room air ? Assisted Ventilation Settings (Last Within 24hrs)?? FIO2: 32 % (20:25) ?? I&O 24 Hour Total? 01/12 19:06 01/13 07:00 01/12 07:00 01/11 07:00 01/10 07:00 ?? 01/13 15:57 01/13 15:57 01/13 06:59 01/12 06:59 01/11 06:59 Intake ?280 ?280 ?0 ?0 ?0 Output ? 3200 ?0 ? 3200 ?0 ?0 Net Total ?-2920 ?280 ?-3200 ?0 ?0 ? Precautions No Precautions documented.? Mental Status Exam ? Basic ADLs ? Physical Exam ?General: Alert, in no acute cardiopulmonary distress. On O2 via NC F/D F.N Mental Status: Oriented to person, place and time. Head: Normocephalic. Eyes: Pupils are equal, round and reactive to light. . Ear, Nose and Throat: Oropharynx clear, mucous membranes moist. Tight posterior pharynx. . Trachea midline. Neck: Supple, Full range of motion.Fullness of jugular veins Respiratory:?? Fair air entry?? CBVBS . No wheezing, rales or rhonchi. Cardiovascular: Heart sounds normal. No thrills. Regular rate and rhythm, no murmurs, rubs or gallops. Gastrointestinal: Abdomen soft, obese non-tender, non-distended. Normal bowel sounds. Genitourinary: No costovertebral angle tenderness. Neurologic: . No focal neurological deficits. . Skin: No rashes or lesions. No petechiae or purpura. Trace edema. Musculoskeletal: No cyanosis or clubbing. No gross deformities. Normal range of motion _ _ Inpatient Medications Medications (27) Active SCHEDULED: (21) amiodarone 200 mg Tab (amiodarone) ??200 mg 1 Tabs, Oral, Daily apixaban 5 mg Tab (apixaban) ??5 mg 1 Tabs, Oral, BID ascorbic acid 500 mg Tab (Vitamin C) ??500 mg 1 Tabs, Oral, BID aspirin 81 mg Chew Tab (aspirin) ??81 mg 1 Tabs, Chewed, Daily atorvastatin 40 mg Tab (atorvastatin) ??40 mg 1 Tabs, Oral, qHS bumetanide 0.25 mg/mL ??Vial 4 mL (bumetanide) ??1 mg 4 mL, IV Push, BID cyanocobalamin 1000 mcg/mL INJ SOLN (cyanocobalamin) ??1,000 mcg 1 mL, IntraMuscular, qMonday docusate sodium 100 mg Cap (docusate sodium) ??100 mg 1 Caps, Oral, BID famotidine 20 mg Tab (Pepcid) ??20 mg 1 Tabs, Oral, BID finasteride 5 mg Tab (Proscar) ??5 mg 1 Tabs, Oral, Daily FLUoxetine 20 mg Cap (PROzac) ??20 mg 1 Caps, Oral, Daily Hypoglycemia Protocol Advisor ??Protocol, N/A, Daily insulin aspart NovoLOG 1 unit/ 0.01mL syringe (insulin aspart NovoLog correctional scale Low) ??sliding scale low, SubCutaneous, Before Meals and HS insulin aspart NovoLOG 1 unit/ 0.01mL syringe (insulin aspart NovoLog correctional scale Low) ??2-8units, SubCutaneous, Before Meals and HS levothyroxine 25 mcg (0.025 mg) Tab (Synthroid) ??25 mcg 1 Tabs, Oral, Daily loratadine 10 mg Tab (loratadine) ??10 mg 1 Tabs, Oral, Daily metoprolol succinate 50 mg XL Tab (Metoprolol Succinate ER) ??50 mg 1 Tabs, Oral, qHS nitroglycerin 2% Top Oint 1 gm (Nitro-Bid) ??1 inch, Topical, q6H Non-Formulary Medication (saw palmetto 450 mg oral capsule) ??450 mg, Oral, BID Protocols (Potassium Chloride - Oral & IV) ??Protocol, N/A, Daily tamsulosin 0.4 mg SA Cap (Flomax) ??0.4 mg 1 Caps, Oral, BID CONTINUOUS: (0) PRN: (6) acetaminophen 325 mg Tab (Tylenol) ??650 mg 2 Tabs, Oral, q4H albuterol-ipratropium Inh Janet 3 mL (ipratropium-albuterol) ??3 mL, NEB, q4H dextromethorphan-guaiFENesin 20 mg-200 mg/10 mL (Robitussin DM) ??10 mL, Oral, q4H docusate sodium 100 mg Cap (Colace) ??100 mg 1 Caps, Oral, BID ondansetron 4 mg/2 mL vial (Zofran) ??4 mg 2 mL, IV Push, q6H ondansetron 4 mg/2 mL vial (Zofran) ??4 mg 2 mL, IV Push, q4H ? 72 hour Antibiotic History No qualifying data available... ? Durable Medical Equipment ? Results Recent Labs Blood Gases pH Arterial 7.449 (Normal)?? 01/12/2023 19:13 Art pCO2 45.3 mmHg (High)?? 01/12/2023 19:13 Art pO2 51.8 mmHg (Low)?? 01/12/2023 19:13 Art TempC,pH 7.449 (N/A)?? 01/12/2023 19:13 Art TempC,PCO2 45.3 mmHg (N/A)?? 01/12/2023 19:13 Art TempC,PO2 51.8 mmHg (N/A)?? 01/12/2023 19:13 Art HCO3 30.0 mmol/L (High)?? 01/12/2023 19:13 Art Base Excess 6.4 mmol/L (High)?? 01/12/2023 19:13 Art sO2 88 % (Low)?? 01/12/2023 19:13 Art tHB 13.1 gm/dL (Low)?? 01/12/2023 19:13 Art O2 Hb 87 % (Low)?? 01/12/2023 19:13 Art Carboxyhemoglobin 1.9 % (High)?? 01/12/2023 19:13 Art Methemoglobin -0.3 % (Low)?? 01/12/2023 19:13 POC Juan Antonio Test POS (N/A)?? 01/12/2023 19:13 POC Del Sys ROOM AIR (N/A)?? 01/12/2023 19:13 POC FIO2 21 % (N/A)?? 01/12/2023 19:13 POC Pt Temp 37.0 DegC (N/A)?? 01/12/2023 19:13 POC Site Radial Left (N/A)?? 01/12/2023 19:13 POC Sample Arterial (N/A)?? 01/12/2023 19:13 POC Total RR 20 br/min (N/A)?? 01/12/2023 19:13 POC Vent Mode NO VENT (N/A)?? 01/12/2023 19:13 Art Hct 40.3 % (Normal)?? 01/12/2023 19:13 Art Lactate 1.3 mmol/L (Normal)?? 01/12/2023 19:13 [place] [id number] (N/A)?? 01/12/2023 19:13 ?? Cardiac BNP 505.0 pg/mL (Critical)?? 01/13/2023 04:22 Troponin TNIH 18.8 ng/L (Normal)?? 01/13/2023 00:02 ?? General Chemistry Glucose Level 137 mg/dL (High)?? 01/13/2023 04:22 POC Glucose 111 mg/dL (High)?? 01/13/2023 11:30 Arterial Glucose 125 mg/dL (High)?? 01/12/2023 19:13 Sodium 137 mmol/L (Normal)?? 01/13/2023 04:22 Art Na 142 mmol/L (Normal)?? 01/12/2023 19:13 Potassium 3.2 mmol/L (Low)?? 01/13/2023 04:22 Art K 3.7 mmol/L (Normal)?? 01/12/2023 19:13 Chloride 99 mmol/L (Normal)?? 01/13/2023 04:22 CO2 37 mmol/L (High)?? 01/13/2023 04:22 Anion Gap 1 mmol/L (Low)?? 01/13/2023 04:22 BUN 13 mg/dL (Normal)?? 01/13/2023 04:22 Creatinine 1.0 mg/dL (Normal)?? 01/13/2023 04:22 BUN/Creat Ratio 13.00 Ratio (Normal)?? 01/13/2023 04:22 Calcium 9.4 mg/dL (Normal)?? 01/13/2023 04:22 Art iCa 1.2 mmol/L (Normal)?? 01/12/2023 19:13 Albumin. Level 3.6 gm/dL (Normal)?? 01/12/2023 16:17 TP 7.0 gm/dL (Normal)?? 01/12/2023 16:17 T Bili 0.80 mg/dL (Normal)?? 01/12/2023 16:17 Alk Phos 91 Intl_units/L (Normal)?? 01/12/2023 16:17 AST 15 Intl_units/L (Normal)?? 01/12/2023 16:17 ALT 25 Intl_units/L (Normal)?? 01/12/2023 16:17 Mg Lvl 2.2 mg/dL (Normal)?? 01/13/2023 04:22 Estimated Creatinine Clearance 49.00 mL/min ()?? 01/13/2023 04:52 eGFR Cr 77 mL/min/1.73m2 (N/A)?? 01/13/2023 04:22 eGFR Pediatric Not Reported mL/min/1.73m2 (N/A)?? 01/13/2023 04:22 MAR Glucose Result 111 ()?? 01/13/2023 11:40 ?? General Hematology WBC 7.10 x10e3/mcL (Normal)?? 01/12/2023 16:17 RBC 4.08 x10e6/mcL (Low)?? 01/12/2023 16:17 Hgb 13.30 gm/dL (Low)?? 01/12/2023 16:17 Hct 39.90 % (Low)?? 01/12/2023 16:17 MCV 97.7 Femtoliters (Normal)?? 01/12/2023 16:17 MCH 32.60 pg (Normal)?? 01/12/2023 16:17 MCHC 33.40 gm/dL (Normal)?? 01/12/2023 16:17 RDW-CV 14.40 % (Normal)?? 01/12/2023 16:17 Plt 213 x10e3/mcL (Normal)?? 01/12/2023 16:17 MPV 7.70 Femtoliters (Normal)?? 01/12/2023 16:17 NRBC % 0 % (Normal)?? 01/12/2023 16:17 Neut % Auto 63.2 % (Normal)?? 01/12/2023 16:17 Lymph % Auto 23.3 % (Low)?? 01/12/2023 16:17 Payne % Auto 10.2 % (Normal)?? 01/12/2023 16:17 Eos % Auto 2.9 % (Normal)?? 01/12/2023 16:17 Baso % Auto 0.4 % (Normal)?? 01/12/2023 16:17 Neut # Auto 4.5 x10e3/mcL (Normal)?? 01/12/2023 16:17 Lymph # Auto 1.7 x10e3/mcL (Normal)?? 01/12/2023 16:17 Payne # Auto 0.7 x10e3/mcL (Normal)?? 01/12/2023 16:17 Eos # Auto 0.2 x10e3/mcL (Normal)?? 01/12/2023 16:17 Baso # Auto 0.0 x10e3/mcL (Normal)?? 01/12/2023 16:17 ? Abnormal Labs ?? Blood Gases ??Art Base Excess ??6.4 mmol/L (High) ??01/12/2023 19:13 ??Art Carboxyhemoglobin ??1.9 % (High) ??01/12/2023 19:13 ??Art HCO3 ??30.0 mmol/L (High) ??01/12/2023 19:13 ??Art Methemoglobin ??-0.3 % (Low) ??01/12/2023 19:13 ??Art O2 Hb ??87 % (Low) ??01/12/2023 19:13 ??Art pCO2 ??45.3 mmHg (High) ??01/12/2023 19:13 ??Art pO2 ??51.8 mmHg (Low) ??01/12/2023 19:13 ??Art sO2 ??88 % (Low) ??01/12/2023 19:13 ??Art tHB ??13.1 gm/dL (Low) ??01/12/2023 19:13 ? Cardiac ??BNP ??505.0 pg/mL (Critical) ??01/13/2023 04:22 ? General Chemistry ??Anion Gap ??1 mmol/L (Low) ??01/13/2023 04:22 ??Arterial Glucose ??125 mg/dL (High) ??01/12/2023 19:13 ??CO2 ??37 mmol/L (High) ??01/13/2023 04:22 ??Glucose Level ??137 mg/dL (High) ??01/13/2023 04:22 ??POC Glucose ??111 mg/dL (High) ??01/13/2023 11:30 ??Potassium ??3.2 mmol/L (Low) ??01/13/2023 04:22 ? Note: Critical results are displayed in red. ? CBC, BMP, Coagulation Trend (last 4 resulted) Glucose Level 137 ??H?? 01/13/2023 ??04:22 ? Sodium 137 ?? 01/13/2023 ??04:22 ? Potassium 3.2 ??L?? 01/13/2023 ??04:22 ? Chloride 99 ?? 01/13/2023 ??04:22 ? CO2 37 ??H?? 01/13/2023 ??04:22 ? BUN 13 ?? 01/13/2023 ??04:22 ? Creatinine 1.0 ?? 01/13/2023 ??04:22 ? BUN/Creat Ratio 13.00 ?? 01/13/2023 ??04:22 ? Mg Lvl 2.2 ?? 01/13/2023 ??04:22 ? Calcium 9.4 ?? 01/13/2023 ??04:22 ? Blood Glucose Trend Glucose Level:??137 mg/dL??High (01/13/23 04:22:00) POC Glucose:??111 mg/dL??High (01/13/23 11:30:00) POC Glucose:??139 mg/dL??High (01/12/23 21:28:00) ? BMP, Mg, and Phos (Last Within 24hrs) Sodium: 137 mmol/L (04:22) Potassium:??3.2 mmol/L??Low (04:22) Chloride: 99 mmol/L (04:22) CO2:??37 mmol/L??High (04:22) BUN: 13 mg/dL (04:22) Creatinine: 1 mg/dL (04:22) Glucose Level:??137 mg/dL??High (04:22) Calcium: 9.4 mg/dL (04:22) Mg Lvl: 2.2 mg/dL (04:22) ? Cardiology Labs BNP:??505 pg/mL??Critical (01/13/23 04:22:00) Troponin TNIH: 18.8 ng/L (01/13/23 00:02:00) Troponin TNIH: 20.7 ng/L (01/12/23 21:08:00) Troponin TNIH: 21.5 ng/L (01/12/23 18:41:00) ?? Blood Gases (Last Within 24hrs) pH Arterial: 7.449 (19:13) Art pO2:??51.8 mmHg??Low (19:13) Art pCO2:??45.3 mmHg??High (19:13) Art HCO3:??30 mmol/L??High (19:13) Art sO2:??88 %??Low (19:13) ? Assessment/Plan Diagnoses 1. ??Acute combined systolic and diastolic CHF, NYHA class 3 ??(I50.41) 2. ??Acute cardiac pulmonary edema ??(I50.1) 3. ??Diabetes ??(E11.9) 4. ??Hyperlipemia ??(E78.5) 5. ??Atrial fibrillation ??(I48.91) 6. ??HTN (hypertension) ??(I10) 7. ??CAD in [place] artery ??(I25.10) 8. ??Presence of stent in coronary artery ??(Z95.5) Acute on Chronic Hypercapneic Hypoxemic Respiratory ??Failure Obesity BMI 36.67 JAME on CKD Stage II ?? Plan : Inpatient Admission Telemetry Monitoring Oxygen Supplementation Aggressive Diuresis Salt and Fluid Rstriction Strict Intake and Output Nebulizer Rx Empiric Antibiotics CT Chest? amiodarone 200 mg Tab (amiodarone) ??200 mg 1 Tabs, Oral, Daily apixaban 5 mg Tab (apixaban) ??5 mg 1 Tabs, Oral, BID ascorbic acid 500 mg Tab (Vitamin C) ??500 mg 1 Tabs, Oral, BID aspirin 81 mg Chew Tab (aspirin) ??81 mg 1 Tabs, Chewed, Daily atorvastatin 40 mg Tab (atorvastatin) ??40 mg 1 Tabs, Oral, qHS bumetanide 0.25 mg/mL ??Vial 4 mL (bumetanide) ??1 mg 4 mL, IV Push, BID cyanocobalamin 1000 mcg/mL INJ SOLN (cyanocobalamin) ??1,000 mcg 1 mL, IntraMuscular, qMonday docusate sodium 100 mg Cap (docusate sodium) ??100 mg 1 Caps, Oral, BID famotidine 20 mg Tab (Pepcid) ??20 mg 1 Tabs, Oral, BID finasteride 5 mg Tab (Proscar) ??5 mg 1 Tabs, Oral, Daily FLUoxetine 20 mg Cap (PROzac) ??20 mg 1 Caps, Oral, Daily Hypoglycemia Protocol Advisor ??Protocol, N/A, Daily insulin aspart NovoLOG 1 unit/ 0.01mL syringe (insulin aspart NovoLog correctional scale Low) ??sliding scale low, SubCutaneous, Before Meals and HS insulin aspart NovoLOG 1 unit/ 0.01mL syringe (insulin aspart NovoLog correctional scale Low) ??2-8units, SubCutaneous, Before Meals and HS levothyroxine 25 mcg (0.025 mg) Tab (Synthroid) ??25 mcg 1 Tabs, Oral, Daily loratadine 10 mg Tab (loratadine) ??10 mg 1 Tabs, Oral, Daily metoprolol succinate 50 mg XL Tab (Metoprolol Succinate ER) ??50 mg 1 Tabs, Oral, qHS nitroglycerin 2% Top Oint 1 gm (Nitro-Bid) ??1 inch, Topical, q6H Non-Formulary Medication (saw palmetto 450 mg oral capsule) ??450 mg, Oral, BID Protocols (Potassium Chloride - Oral & IV) ??Protocol, N/A, Daily tamsulosin 0.4 mg SA Cap (Flomax) ??0.4 mg 1 Caps, Oral, BID ?Pulmo Consult ??Cardio Consult GI and DVT Prophylaxis ?? Condition Serious, now stable ??Prognosis Guarded, now fair ?? Further as per clinical evolutin ?? Dispo Home with Family care when stable ?Order Date/Time ??Order Action ??Order Name ??Order Detail ??01/13/2023 15:36 ??Order ??Consult to Provider ??01/13/23 15:36:00 NET C DEVELOPER, Routine, Specialty Consulted: Pulmonology, To notify: Ranjit MODI, Ashutosh Quiroga, Attending, Attending Urologist Not Notified, Reason for consult: COPD / Home O2 ?, Special Instructions: Please call ??May be seen in am ??01/13/2023 11:36 ??Order ??POC Glu ??Blood, Collected Y/N, RT, RT - Routine, 01/13/23 11:30:45 NET C DEVELOPER ??01/13/2023 08:10 ??Modify ??Admission/Observation/Transfer ??01/12/23 19:06:00 NET C DEVELOPER, Estimated LOS: 2 to 3 Nights Admit as Inpatient, Level of Care Telemetry, chf, sob, Admitting: Luca MODI [facility], Attending: Margi Plummer MD ? Electronically Signed By: Margi Plummer MD On: 01.13.2023 17:04 NET C DEVELOPER Discharge summary * Margi Plummer MD: PERFORM Event Display: Discharge Summary Authored Date: Patient Information Attending Physician: Margi Plummer MD Admitting Diagnosis: chf, sob Discharge Location: [facility] Primary Care Physician:?? Dr My Travis Admit Date/Time: 01/12/23 19:06 Discharge Diagnosis Acute combined systolic and diastolic CHF, NYHA class 3 (I50.41) Acute cardiac pulmonary edema (I50.1) Diabetes (E11.9) Hyperlipemia (E78.5) Atrial fibrillation (I48.91) HTN (hypertension) (I10) CAD in [place] artery (I25.10) Presence of stent in coronary artery (Z95.5) ?? Acute on chronic??respiratory failure , PO2 on room air is 51 Acute on chronic congestive heart failure with reduced ejection fraction 30-35 Atrial fibrillation with rapid ventricular response, electrical??cardioversion??January 04, 2022 Chronic obstructive pulmonary disease former heavy smoker Obstructive sleep apnea??and hypersomnia on on home CPAP Adult BMI 34.0-34.9 kg/sq m BPH Hypothyroid diabetes mellitus?Acute on Chronic Hypercapneic Hypoxemic Respiratory ??Failure Obesity BMI 36.67 JAME on CKD Stage II ??Hypokalemia _ ?? Discharge Medications acetaZOLAMIDE (acetaZOLAMIDE 250 mg oral tablet)?250?Milligram?1?Tabs?By Mouth?Every 6 hours?for 5?Days amiodarone (amiodarone 200 mg oral tablet)?100?Milligram?By Mouth?Daily?for 30?Days apixaban (apixaban 5 mg oral tablet)?5?Milligram?1?Tabs?By Mouth?2 Times a Day ascorbic acid (ascorbic acid 500 mg oral tablet)?500?Milligram?1?Tabs?By Mouth?2 Times a Day aspirin (aspirin 81 mg oral tablet, chewable)?81?Milligram?1?Tabs?Chewed?Daily atorvastatin (atorvastatin 40 mg oral tablet)?40?Milligram?1?Tabs?By Mouth?at Bedtime cyanocobalamin (cyanocobalamin 1000 mcg/mL injectable solution)?1,000?Microgram?Intramuscular?Every Sunday dapagliflozin (dapagliflozin 10 mg oral tablet)?10?Milligram?1?Tabs?By Mouth?Daily docusate (docusate sodium 100 mg oral tablet)?100?Milligram?1?Tabs?By Mouth?2 Times a Day finasteride (Proscar 5 mg oral tablet)?5?Milligram?1?Tabs?By Mouth?Daily FLUoxetine (PROzac 20 mg oral capsule)?20?Milligram?1?Capsules?By Mouth?Daily furosemide (furosemide 40 mg oral tablet)?40?Milligram?1?Tabs?By Mouth?2 Times a Day?Administer at 9 am and 2 pm?for 30?Days guaifenesin-dextromethorphan (guaifenesin-dextromethorphan 200 mg-20 mg/10 mL oral liquid)?10?Milliliter?By Mouth?Every 4 hours?as needed?Cough?for 10?Days levothyroxine (Synthroid 25 mcg (0.025 mg) oral tablet)?25?Microgram?1?Tabs?By Mouth?Daily loratadine (loratadine 10 mg oral tablet)?10?Milligram?1?Tabs?By Mouth?Daily metFORMIN (metFORMIN 500 mg oral tablet)?500?Milligram?1?Tabs?By Mouth?Daily?as needed?Blood Glucose (please specify)?for blood sugar over 200 metoprolol (Metoprolol Succinate ER 50 mg oral tablet, extended release)?50?Milligram?1?Tabs?By Mouth?at Bedtime multivitamin with minerals (Centrum Silver oral tablet)?1?Tabs?By Mouth?2 Times a Day pantoprazole (Protonix 20 mg oral enteric coated tablet)?20?Milligram?1?Tabs?By Mouth?Daily potassium chloride (Potassium Chloride (Eqv-K-Tab) 20 mEq oral tablet, extended release)?20?Milliequivalent?1?Tabs?By Mouth?2 Times a Day?for 30?Days potassium chloride (Potassium Chloride (Eqv-K-Tab) 20 mEq oral tablet, extended release)?20?Milliequivalent?1?Tabs?By Mouth?Daily?for 30?Days sacubitril-valsartan (Entresto 24 mg-26 mg oral tablet)?1?Tabs?By Mouth?2 Times a Day spironolactone (spironolactone 25 mg oral tablet)?25?Milligram?1?Tabs?By Mouth?Daily tamsulosin (tamsulosin 0.4 mg oral capsule)?0.4?Milligram?1?Capsules?By Mouth?2 Times a Day ? Quality Measures CHF Quality Measures:?ACEI or ARB for LVSD:??ARB has been prescribed ?Beta-Marilia Prescribed at Discharge:??Active Home Medication for Beta-Marilia ?Cardiac Rehabilitation Phase II:??Referral Prescribed ? Inpatient Medications Medications (26) Active SCHEDULED: (20) acetaZOLAMIDE 250 mg Tab (acetaZOLAMIDE) ??250 mg 1 Tabs, Oral, q6H amiodarone 200 mg Tab (amiodarone) ??100 mg 0.5 Tabs, Oral, Daily apixaban 5 mg Tab (apixaban) ??5 mg 1 Tabs, Oral, BID ascorbic acid 500 mg Tab (Vitamin C) ??500 mg 1 Tabs, Oral, BID aspirin 81 mg Chew Tab (aspirin) ??81 mg 1 Tabs, Chewed, Daily atorvastatin 40 mg Tab (atorvastatin) ??40 mg 1 Tabs, Oral, qHS cyanocobalamin 1000 mcg/mL INJ SOLN (cyanocobalamin) ??1,000 mcg 1 mL, IntraMuscular, qMonday dapagliflozin 10 mg Tab (Farxiga) ??10 mg 1 Tabs, Oral, Daily docusate sodium 100 mg Cap (docusate sodium) ??100 mg 1 Caps, Oral, BID finasteride 5 mg Tab (Proscar) ??5 mg 1 Tabs, Oral, Daily FLUoxetine 20 mg Cap (PROzac) ??20 mg 1 Caps, Oral, Daily Hypoglycemia Protocol Advisor ??Protocol, N/A, Daily insulin aspart NovoLOG 1 unit/ 0.01mL syringe (insulin aspart NovoLog correctional scale Low) ??2-8units, SubCutaneous, Before Meals and HS levothyroxine 25 mcg (0.025 mg) Tab (Synthroid) ??25 mcg 1 Tabs, Oral, Daily loratadine 10 mg Tab (loratadine) ??10 mg 1 Tabs, Oral, Daily metoprolol succinate 50 mg XL Tab (Metoprolol Succinate ER) ??50 mg 1 Tabs, Oral, qHS potassium bicarbonate 25 mEq Eff Tab K-Lyte (K-Lyte Eff Tablet) ??25 mEq 1 Tabs, Oral, Once potassium chloride 20 mEq ER Tab (K-Dur 20) ??40 mEq 2 Tabs, Oral, Once sacubitril-valsartan 24 mg-26 mg Tab (Entresto 24 mg-26 mg oral tablet) ??1 Tabs, Oral, BID tamsulosin 0.4 mg SA Cap (Flomax) ??0.4 mg 1 Caps, Oral, BID CONTINUOUS: (0) PRN: (6) acetaminophen 325 mg Tab (Tylenol) ??650 mg 2 Tabs, Oral, q4H dextromethorphan-guaiFENesin 20 mg-200 mg/10 mL (Robitussin DM) ??10 mL, Oral, q4H docusate sodium 100 mg Cap (Colace) ??100 mg 1 Caps, Oral, BID ipratropium 0.5mg Inh Janet 2.5 mL (ipratropium 0.02% inh janet) ??0.5 mg 2.5 mL, Inhalation, RT q6H ondansetron 4 mg/2 mL vial (Zofran) ??4 mg 2 mL, IV Push, q6H ondansetron 4 mg/2 mL vial (Zofran) ??4 mg 2 mL, IV Push, q4H ? 72 hour Antibiotic History No qualifying data available... ? Durable Medical Equipment ? Follow-Up/Discharge Instructions Follow-up Joaquín MODI, [place], [place], 01/23/23 12:30 My Travis IMJameel, 01/18/23 13:15 - needs to call insurance to add to it before going Harish MODI, Robin Webster, PUL, 01/18/23 13:00 ?? Education Atrial Fibrillation, Discharge Instructions COPD, Discharge Instructions Heart Failure, Discharge Instructions Shortness of Breath (Dyspnea) Using Oxygen Safely Using Oxygen at Home Post Discharge Care Diet: ??Diabetic/Carb Consistent - Medium (75g), Special Instructions: cardiac ?? Activity: ??up ad gary ?? Code Status: ??During Arrest: Full Resuscitation, During Distress: Full Treatment ?? Prognosis: ??Fair ?? Condition: ??Stable ?? Discharge Request ?01/17/23 10:59:00 NET C DEVELOPER, Home Routine, Kavitha MODI, Margi Dennison DC once O2 portable delivered at hospital and O2 concentrator delivered home Pending Results B Type Natriuretic Peptide ordered on 01/17/2023 Basic Metabolic Panel ordered on 01/17/2023 Magnesium Level ordered on 01/17/2023 Phosphorus Level ordered on 01/17/2023 Potassium Level ordered on 01/13/2023 Results Discharge Labs Blood Gases pH Arterial 7.480 (High)?? 01/15/2023 08:29 Art pCO2 44.8 mmHg (Normal)?? 01/15/2023 08:29 Art pO2 51.1 mmHg (Low)?? 01/15/2023 08:29 Art TempC,pH 7.480 (N/A)?? 01/15/2023 08:29 Art TempC,PCO2 44.8 mmHg (N/A)?? 01/15/2023 08:29 Art TempC,PO2 51.1 mmHg (N/A)?? 01/15/2023 08:29 Art HCO3 32.0 mmol/L (High)?? 01/15/2023 08:29 Art Base Excess 8.5 mmol/L (High)?? 01/15/2023 08:29 Art sO2 88 % (Low)?? 01/15/2023 08:29 Art tHB 15.9 gm/dL (Normal)?? 01/15/2023 08:29 Art O2 Hb 87 % (Low)?? 01/15/2023 08:29 Art Carboxyhemoglobin 1.6 % (High)?? 01/15/2023 08:29 Art Methemoglobin 0.1 % (Normal)?? 01/15/2023 08:29 POC Juan Antonio Test POS (N/A)?? 01/15/2023 08:29 POC Del Sys ROOM AIR (N/A)?? 01/15/2023 08:29 POC FIO2 21 % (N/A)?? 01/15/2023 08:29 POC Pt Temp 37.0 DegC (N/A)?? 01/15/2023 08:29 POC Site Radial Left (N/A)?? 01/15/2023 08:29 POC Sample Arterial (N/A)?? 01/15/2023 08:29 POC Total RR 20 br/min (N/A)?? 01/12/2023 19:13 POC Vent Mode NO VENT (N/A)?? 01/15/2023 08:29 Art Hct 48.6 % (Normal)?? 01/15/2023 08:29 Art Lactate 1.9 mmol/L (Normal)?? 01/15/2023 08:29 Line Ordering Clinician ID [id number] (N/A)?? 01/15/2023 08:29 ?? Cardiac BNP 69.5 pg/mL (Normal)?? 01/16/2023 02:56 Troponin TNIH 18.8 ng/L (Normal)?? 01/13/2023 00:02 ?? General Chemistry Glucose Level 137 mg/dL (High)?? 01/16/2023 02:56 POC Glucose 127 mg/dL (High)?? 01/17/2023 05:22 Arterial Glucose 202 mg/dL (High)?? 01/15/2023 08:29 Sodium 133 mmol/L (Low)?? 01/16/2023 02:56 Art Na 138 mmol/L (Normal)?? 01/15/2023 08:29 Potassium 3.1 mmol/L (Low)?? 01/17/2023 05:18 Art K 4.1 mmol/L (Normal)?? 01/15/2023 08:29 Chloride 97 mmol/L (Low)?? 01/16/2023 02:56 CO2 32 mmol/L (Normal)?? 01/16/2023 02:56 Anion Gap 4 mmol/L (Normal)?? 01/16/2023 02:56 BUN 24 mg/dL (High)?? 01/16/2023 02:56 Creatinine 1.2 mg/dL (Normal)?? 01/16/2023 02:56 BUN/Creat Ratio 20.00 Ratio (Normal)?? 01/16/2023 02:56 Calcium 9.8 mg/dL (Normal)?? 01/16/2023 02:56 Art iCa 1.2 mmol/L (Normal)?? 01/15/2023 08:29 Mg Lvl 2.1 mg/dL (Normal)?? 01/16/2023 02:56 Phosphorus 4.6 mg/dL (Normal)?? 01/16/2023 02:56 Estimated Creatinine Clearance 40.83 mL/min ()?? 01/14/2023 03:49 eGFR Cr 62 mL/min/1.73m2 (N/A)?? 01/16/2023 02:56 eGFR Pediatric Not Reported mL/min/1.73m2 (N/A)?? 01/16/2023 02:56 MAR Glucose Result 127 ()?? 01/17/2023 07:23 ? General Hematology WBC 8.90 x10e3/mcL (Normal)?? 01/16/2023 02:56 RBC 4.58 x10e6/mcL (Low)?? 01/16/2023 02:56 Hgb 15.20 gm/dL (Normal)?? 01/16/2023 02:56 Hct 44.00 % (Normal)?? 01/16/2023 02:56 MCV 96.2 Femtoliters (Normal)?? 01/16/2023 02:56 MCH 33.20 pg (High)?? 01/16/2023 02:56 MCHC 34.50 gm/dL (Normal)?? 01/16/2023 02:56 RDW-CV 14.40 % (Normal)?? 01/16/2023 02:56 RDW-SD 49.00 Femtoliters (High)?? 01/16/2023 02:56 Plt 233 x10e3/mcL (Normal)?? 01/16/2023 02:56 MPV 8.20 Femtoliters (Normal)?? 01/16/2023 02:56 Neut % Auto 61.1 % (Normal)?? 01/16/2023 02:56 Lymph % Auto 21.2 % (Low)?? 01/16/2023 02:56 Payne % Auto 14.4 % (High)?? 01/16/2023 02:56 Eos % Auto 3.0 % (Normal)?? 01/16/2023 02:56 Baso % Auto 0.3 % (Normal)?? 01/16/2023 02:56 Neut # Auto 5.4 x10e3/mcL (Normal)?? 01/16/2023 02:56 Lymph # Auto 1.9 x10e3/mcL (Normal)?? 01/16/2023 02:56 Payne # Auto 1.3 x10e3/mcL (Normal)?? 01/16/2023 02:56 Eos # Auto 0.3 x10e3/mcL (Normal)?? 01/16/2023 02:56 Baso # Auto 0.0 x10e3/mcL (Normal)?? 01/16/2023 02:56 ? Allergies Allergies ?(Active and Proposed Allergies Only) codeine? (Severity: Unknown severity, Onset: Unknown) ?Reactions: hives penicillin? (Severity: Unknown severity, Onset: Unknown) ?Reactions: hives ? Objective Vital Signs (24 hrs) Last Charted?? Minimum?? Maximum?? Temp?? 36.5?? 01/17/2023 10:40?? L??36.3?? 01/16/2023 10:55 ?? L??36.3?? 01/16/2023 10:55?? Peripheral Pulse Rate?? 77?? 01/17/2023 10:40?? 66?? 01/16/2023 10:55 ?? 83?? 01/17/2023 07:15?? Resp Rate?? 16?? 01/17/2023 10:40?? 16?? 01/17/2023 05:19 ?? 18?? 01/16/2023 10:55?? SBP?? 107?? 01/17/2023 10:40?? 93?? 01/16/2023 15:33 ?? 122?? 01/17/2023 07:15?? DBP?? 65?? 01/17/2023 10:40?? L??56?? 01/16/2023 10:55 ?? 67?? 01/17/2023 07:15?? MAP?? 79?? 01/17/2023 10:40?? 70?? 01/16/2023 15:33 ?? 85?? 01/17/2023 07:15?? SpO2?? 96?? 01/17/2023 10:40?? 96?? 01/16/2023 15:33 ?? 100?? 01/16/2023 10:55?? O2 Flow Rate?? on 2 ? l/min?? on 2 ? l/min?? on 2 ? l/min O2 Therapy?? Nasal cannula?? Nasal cannula?? Nasal cannula ? Pain Scores (Last Within 24hrs) Numeric Pain Scale: 0 = No pain (08:40) ? I&O 24 Hour Total? 01/12 19:06 01/17 07:00 01/16 07:00 01/15 07:00 01/14 07:00 ?? 01/17 10:54 03/01 10:54 03/ 06:59 01/16 06:59 01/15 06:59 Intake ? 2640 ?0 ?400 ?600 ?820 Output ? 9100 ?175 ?700 ? 1700 ? 1050 Net Total ?-6460 ? -175 ? -300 ?-1100 ? -230 Stool Count ?1 ?0 ?0 ?0 ?1 ? General: Alert, in no acute cardiopulmonary distress. On O2 via NC F/D F.N Mental Status: Oriented to person, place and time. Head: Normocephalic. Eyes: Pupils are equal, round and reactive to light. . Ear, Nose and Throat: Oropharynx clear, mucous membranes moist. Tight posterior pharynx. . Trachea midline. Neck: Supple, Full range of motion.Fullness of jugular veins Respiratory:?? Fair air entry?? CBVBS . No wheezing, rales or rhonchi. Cardiovascular: Heart sounds normal. No thrills. Regular rate and rhythm, no murmurs, rubs or gallops. Gastrointestinal: Abdomen soft, obese non-tender, non-distended. Normal bowel sounds. Genitourinary: No costovertebral angle tenderness. Neurologic: . No focal neurological deficits. . Skin: No rashes or lesions. No petechiae or purpura. Trace edema. Musculoskeletal: No cyanosis or clubbing. No gross deformities. Normal range of motion Hospital Course ? Date of Service :?? /?? Hospitalist Progress Note ?? Chief Complaint : progressive SOB ?? Mr Albert Chang : 77/M with COPD on Home O2 , chronic hypoxemic resp failure.?? Ischemic Cardiomyopathy EF 30 to 35%. Moderate mitral valve regurgitation.Mild-moderate tricuspid regurgitation. Non insulin Rxed DM2, HTN. HLD. Hypothyroidism. BPH. Depression , Hx Paroxysmal A Fib involvement , admitted and Rxed?? 01/02 to 01/05 for A Fib RVR?? Post DC cardioversion??on 01/04/23 ??200 J,??converted to??sinus rhythm On continuous oral anticoagulation ?? 01/12/23 Heart ER Adm with SOB, orthopnea seen at office of Heart [facility] Dr Yanes and sent to [facility] for Eval and Rx and Hospital Adm 01/14/23? 4.85 L negative fluid balance. ??Appears comfortable, seated upright by side of bed. OnO2 via NC. ??No chest pain, palpitations, dizziness, near syncope. No fever. No arrhythmia. Serial Troponins are negative. BNP 505 . ABG 7.45/ 45.5 /51.8 on RA??. BUN 13? K 3.2?? personally reviewed image CXR :?Diffuse bilateral lung opacities consistent with pulmonary edema, small right pleural effusion and right basilar atelectasis ?? . ??Pneumonia cannot be excluded.Rx deescalation, stopping Bumetanude, adding Spironolactone, Farxiga and low dose Sacubitril Valsartan. Oxygen?? arrangement upon DC pending., Antibiotics , Neb Rx ?24 Hour Interval Course No chest pain, shortness of breath, palpitations, dizziness, near syncope. Potassium low , being replaced. Mg an d? PO4ok?? O2 sat 96 on RA at rest ??Pending O2 arrangements. Cumulative 6.4 negative fluid balance ??Assessment/Plan Diagnoses 1. ??Acute combined systolic and diastolic CHF, NYHA class 3 ??(I50.41) 2. ??Acute cardiac pulmonary edema ??(I50.1) 3. ??Diabetes ??(E11.9) 4. ??Hyperlipemia ??(E78.5) 5. ??Atrial fibrillation ??(I48.91) 6. ??HTN (hypertension) ??(I10) 7. ??CAD in [place] artery ??(I25.10) 8. ??Presence of stent in coronary artery ??(Z95.5) Acute on Chronic Hypercapneic Hypoxemic Respiratory ??Failure Obesity BMI 36.67 JAME on CKD Stage II ?? Plan : Inpatient Admission Telemetry Monitoring Oxygen Supplementation Aggressive Diuresis Salt and Fluid Restriction Strict Intake and Output Nebulizer Rx Empiric Antibiotics ?? acetaZOLAMIDE 250 mg Tab (acetaZOLAMIDE) ??250 mg 1 Tabs, Oral, q6H amiodarone 200 mg Tab (amiodarone) ??100 mg 0.5 Tabs, Oral, Daily apixaban 5 mg Tab (apixaban) ??5 mg 1 Tabs, Oral, BID ascorbic acid 500 mg Tab (Vitamin C) ??500 mg 1 Tabs, Oral, BID aspirin 81 mg Chew Tab (aspirin) ??81 mg 1 Tabs, Chewed, Daily atorvastatin 40 mg Tab (atorvastatin) ??40 mg 1 Tabs, Oral, qHS cyanocobalamin 1000 mcg/mL INJ SOLN (cyanocobalamin) ??1,000 mcg 1 mL, IntraMuscular, qMonday dapagliflozin 10 mg Tab (Farxiga) ??10 mg 1 Tabs, Oral, Daily docusate sodium 100 mg Cap (docusate sodium) ??100 mg 1 Caps, Oral, BID finasteride 5 mg Tab (Proscar) ??5 mg 1 Tabs, Oral, Daily FLUoxetine 20 mg Cap (PROzac) ??20 mg 1 Caps, Oral, Daily Hypoglycemia Protocol Advisor ??Protocol, N/A, Daily insulin aspart NovoLOG 1 unit/ 0.01mL syringe (insulin aspart NovoLog correctional scale Low) ??2-8units, SubCutaneous, Before Meals and HS levothyroxine 25 mcg (0.025 mg) Tab (Synthroid) ??25 mcg 1 Tabs, Oral, Daily loratadine 10 mg Tab (loratadine) ??10 mg 1 Tabs, Oral, Daily metoprolol succinate 50 mg XL Tab (Metoprolol Succinate ER) ??50 mg 1 Tabs, Oral, qHS potassium bicarbonate 25 mEq Eff Tab K-Lyte (K-Lyte Eff Tablet) ??25 mEq 1 Tabs, Oral, Once potassium chloride 20 mEq ER Tab (K-Dur 20) ??40 mEq 2 Tabs, Oral, Once sacubitril-valsartan 24 mg-26 mg Tab (Entresto 24 mg-26 mg oral tablet) ??1 Tabs, Oral, BID tamsulosin 0.4 mg SA Cap (Flomax) ??0.4 mg 1 Caps, Oral, BID ?? GI and DVT Prophylaxis ?? Condition stable ??Prognosis?? fair ?Per Pulmo ?? Assessment/Plan Diagnoses ?? Acute on chronic??respiratory failure , PO2 on room air is 51 Acute on chronic congestive heart failure with reduced ejection fraction 30-35 Atrial fibrillation with rapid ventricular response, electrical??cardioversion??January 04, 2022 Chronic obstructive pulmonary disease former heavy smoker Obstructive sleep apnea??and hypersomnia on on home CPAP Adult BMI 34.0-34.9 kg/sq m BPH Hypothyroid diabetes mellitus? Plan : ?? Oxygen arrangement is in progress CPAP??12 cm H2O nighttime and as needed??daytime Continue??carvedilol and and the Bumex he will be given Diamox for 4 days bronchodilators only on as needed basis albuterol 1.25 mg every 8 hours Continue??DVT prophylaxis with Lovenox Home once home O2 is arranged ? Signature Line Electronically Signed By: Ashutosh Church MD ?Stable for DC once Home O2 arrangements completed Hypokalemia corrected and potassium maintenanance given ?55 min spent on discharge process including clinical exam, review of hospital course, medication reconciliation, arrangement of post acute care followup and patient education, more than half of thetime spent at patient's bedside in coordination of care. Electronically Signed By: Margi Plummer MD On: 01.17.2023 10:58 NET C DEVELOPER * Margi Plummer MD: PERFORM Event Display: Discharge Summary Authored Date: Patient Information Attending Physician: Margi Plummer MD Admitting Diagnosis: chf, sob Discharge Location: [facility] Primary Care Physician: Miryam boggs [address] [place] [address] Admit Date/Time: 01/12/23 19:06 Discharge Diagnosis Acute combined systolic and diastolic CHF, NYHA class 3 (I50.41) Acute cardiac pulmonary edema (I50.1) Diabetes (E11.9) Hyperlipemia (E78.5) Atrial fibrillation (I48.91) HTN (hypertension) (I10) CAD in [place] artery (I25.10) Presence of stent in coronary artery (Z95.5) _ ?? Discharge Medications amiodarone (amiodarone 200 mg oral tablet)?100?Milligram?By Mouth?Daily?for 30?Days apixaban (apixaban 5 mg oral tablet)?5?Milligram?1?Tabs?By Mouth?2 Times a Day ascorbic acid (ascorbic acid 500 mg oral tablet)?500?Milligram?1?Tabs?By Mouth?2 Times a Day aspirin (aspirin 81 mg oral tablet, chewable)?81?Milligram?1?Tabs?Chewed?Daily atorvastatin (atorvastatin 40 mg oral tablet)?40?Milligram?1?Tabs?By Mouth?at Bedtime cyanocobalamin (cyanocobalamin 1000 mcg/mL injectable solution)?1,000?Microgram?Intramuscular?Every Sunday cyclobenzaprine (cyclobenzaprine 10 mg oral tablet)?10?Milligram?1?Tabs?By Mouth?at Bedtime dapagliflozin (dapagliflozin 10 mg oral tablet)?10?Milligram?1?Tabs?By Mouth?Daily docusate (docusate sodium 100 mg oral tablet)?100?Milligram?1?Tabs?By Mouth?2 Times a Day finasteride (Proscar 5 mg oral tablet)?5?Milligram?1?Tabs?By Mouth?Daily FLUoxetine (PROzac 20 mg oral capsule)?20?Milligram?1?Capsules?By Mouth?Daily furosemide (furosemide 40 mg oral tablet)?40?Milligram?1?Tabs?By Mouth?2 Times a Day?Administer at 9 am and 2 pm?for 30?Days guaifenesin-dextromethorphan (guaifenesin-dextromethorphan 200 mg-20 mg/10 mL oral liquid)?10?Milliliter?By Mouth?Every 4 hours?as needed?Cough?for 10?Days levothyroxine (Synthroid 25 mcg (0.025 mg) oral tablet)?25?Microgram?1?Tabs?By Mouth?Daily loratadine (loratadine 10 mg oral tablet)?10?Milligram?1?Tabs?By Mouth?Daily metFORMIN (metFORMIN 500 mg oral tablet)?500?Milligram?1?Tabs?By Mouth?Daily?as needed?Blood Glucose (please specify)?for blood sugar over 200 metoprolol (Metoprolol Succinate ER 50 mg oral tablet, extended release)?50?Milligram?1?Tabs?By Mouth?at Bedtime multivitamin with minerals (Centrum Silver oral tablet)?1?Tabs?By Mouth?2 Times a Day pantoprazole (Protonix 20 mg oral enteric coated tablet)?20?Milligram?1?Tabs?By Mouth?Daily sacubitril-valsartan (Entresto 24 mg-26 mg oral tablet)?1?Tabs?By Mouth?2 Times a Day spironolactone (spironolactone 25 mg oral tablet)?25?Milligram?1?Tabs?By Mouth?Daily tamsulosin (tamsulosin 0.4 mg oral capsule)?0.4?Milligram?1?Capsules?By Mouth?2 Times a Day ? Quality Measures CHF Quality Measures:?ACEI or ARB for LVSD:??ARB has been prescribed ?Beta-Marilia Prescribed at Discharge:??Active Home Medication for Beta-Marilia ? Inpatient Medications Medications (31) Active SCHEDULED: (25) acetaZOLAMIDE 250 mg Tab (acetaZOLAMIDE) ??250 mg 1 Tabs, Oral, q6H amiodarone 200 mg Tab (amiodarone) ??100 mg 0.5 Tabs, Oral, Daily apixaban 5 mg Tab (apixaban) ??5 mg 1 Tabs, Oral, BID ascorbic acid 500 mg Tab (Vitamin C) ??500 mg 1 Tabs, Oral, BID aspirin 81 mg Chew Tab (aspirin) ??81 mg 1 Tabs, Chewed, Daily atorvastatin 40 mg Tab (atorvastatin) ??40 mg 1 Tabs, Oral, qHS cyanocobalamin 1000 mcg/mL INJ SOLN (cyanocobalamin) ??1,000 mcg 1 mL, IntraMuscular, qMonday dapagliflozin 10 mg Tab (Farxiga) ??10 mg 1 Tabs, Oral, Daily docusate sodium 100 mg Cap (docusate sodium) ??100 mg 1 Caps, Oral, BID finasteride 5 mg Tab (Proscar) ??5 mg 1 Tabs, Oral, Daily FLUoxetine 20 mg Cap (PROzac) ??20 mg 1 Caps, Oral, Daily Hypoglycemia Protocol Advisor ??Protocol, N/A, Daily insulin aspart NovoLOG 1 unit/ 0.01mL syringe (insulin aspart NovoLog correctional scale Low) ??sliding scale low, SubCutaneous, Before Meals and HS insulin aspart NovoLOG 1 unit/ 0.01mL syringe (insulin aspart NovoLog correctional scale Low) ??2-8units, SubCutaneous, Before Meals and HS levothyroxine 25 mcg (0.025 mg) Tab (Synthroid) ??25 mcg 1 Tabs, Oral, Daily loratadine 10 mg Tab (loratadine) ??10 mg 1 Tabs, Oral, Daily metoprolol succinate 50 mg XL Tab (Metoprolol Succinate ER) ??50 mg 1 Tabs, Oral, qHS Protocols (Potassium Chloride - Oral & IV) ??Protocol, N/A, Daily Protocols (Magnesium Oxide - Oral) ??Protocol, N/A, Daily Protocols (Magnesium Sulfate - IV) ??Protocol, N/A, Daily Protocols (Sodium Phosphate - Oral) ??Protocol, N/A, Daily Protocols (Sodium Phosphate - IV) ??Protocol, N/A, Daily Protocols (Potassium Chloride - Oral & IV) ??Protocol, N/A, Daily sacubitril-valsartan 24 mg-26 mg Tab (Entresto 24 mg-26 mg oral tablet) ??1 Tabs, Oral, BID tamsulosin 0.4 mg SA Cap (Flomax) ??0.4 mg 1 Caps, Oral, BID CONTINUOUS: (0) PRN: (6) acetaminophen 325 mg Tab (Tylenol) ??650 mg 2 Tabs, Oral, q4H dextromethorphan-guaiFENesin 20 mg-200 mg/10 mL (Robitussin DM) ??10 mL, Oral, q4H docusate sodium 100 mg Cap (Colace) ??100 mg 1 Caps, Oral, BID ipratropium 0.5mg Inh Janet 2.5 mL (ipratropium 0.02% inh janet) ??0.5 mg 2.5 mL, Inhalation, RT q6H ondansetron 4 mg/2 mL vial (Zofran) ??4 mg 2 mL, IV Push, q6H ondansetron 4 mg/2 mL vial (Zofran) ??4 mg 2 mL, IV Push, q4H ? 72 hour Antibiotic History No qualifying data available... ? Durable Medical Equipment ? Follow-Up/Discharge Instructions Follow-up Maggy GUEVARA MD, Terrance, Within 3-5 days Ranjit MODI, Ashutosh Quiroga, PUL, Within 1 to 2 weeks Joaquín MODI, [place], CAR, Within 1 to 2 weeks ? Post Discharge Care Diet: ??Diabetic/Carb Consistent - Medium (75g), Special Instructions: cardiac ?? Activity: ??up ad gary ?? Code Status: ??During Arrest: Full Resuscitation, During Distress: Full Treatment ?? Prognosis: ??Fair ?? Condition: ??Stable ?? Pending Results Potassium Level ordered on 01/13/2023 US TTE w/ Doppler Comp ordered on 01/12/2023 Results Discharge Labs Blood Gases pH Arterial 7.480 (High)?? 01/15/2023 08:29 Art pCO2 44.8 mmHg (Normal)?? 01/15/2023 08:29 Art pO2 51.1 mmHg (Low)?? 01/15/2023 08:29 Art TempC,pH 7.480 (N/A)?? 01/15/2023 08:29 Art TempC,PCO2 44.8 mmHg (N/A)?? 01/15/2023 08:29 Art TempC,PO2 51.1 mmHg (N/A)?? 01/15/2023 08:29 Art HCO3 32.0 mmol/L (High)?? 01/15/2023 08:29 Art Base Excess 8.5 mmol/L (High)?? 01/15/2023 08:29 Art sO2 88 % (Low)?? 01/15/2023 08:29 Art tHB 15.9 gm/dL (Normal)?? 01/15/2023 08:29 Art O2 Hb 87 % (Low)?? 01/15/2023 08:29 Art Carboxyhemoglobin 1.6 % (High)?? 01/15/2023 08:29 Art Methemoglobin 0.1 % (Normal)?? 01/15/2023 08:29 POC Juan Antonio Test POS (N/A)?? 01/15/2023 08:29 POC Del Sys ROOM AIR (N/A)?? 01/15/2023 08:29 POC FIO2 21 % (N/A)?? 01/15/2023 08:29 POC Pt Temp 37.0 DegC (N/A)?? 01/15/2023 08:29 POC Site Radial Left (N/A)?? 01/15/2023 08:29 POC Sample Arterial (N/A)?? 01/15/2023 08:29 POC Total RR 20 br/min (N/A)?? 01/12/2023 19:13 POC Vent Mode NO VENT (N/A)?? 01/15/2023 08:29 Art Hct 48.6 % (Normal)?? 01/15/2023 08:29 Art Lactate 1.9 mmol/L (Normal)?? 01/15/2023 08:29 Line Ordering Clinician ID [id number] (N/A)?? 01/15/2023 08:29 ?? Cardiac BNP 235.0 pg/mL (High)?? 01/14/2023 03:27 Troponin TNIH 18.8 ng/L (Normal)?? 01/13/2023 00:02 ?? General Chemistry Glucose Level 186 mg/dL (High)?? 01/14/2023 03:27 POC Glucose 147 mg/dL (High)?? 01/15/2023 10:45 Arterial Glucose 202 mg/dL (High)?? 01/15/2023 08:29 Sodium 136 mmol/L (Normal)?? 01/14/2023 03:27 Art Na 138 mmol/L (Normal)?? 01/15/2023 08:29 Potassium 4.6 mmol/L (Normal)?? 01/15/2023 04:29 Art K 4.1 mmol/L (Normal)?? 01/15/2023 08:29 Chloride 97 mmol/L (Low)?? 01/14/2023 03:27 CO2 36 mmol/L (High)?? 01/14/2023 03:27 Anion Gap 3 mmol/L (Normal)?? 01/14/2023 03:27 BUN 20 mg/dL (High)?? 01/14/2023 03:27 Creatinine 1.2 mg/dL (Normal)?? 01/14/2023 03:27 BUN/Creat Ratio 16.67 Ratio (Normal)?? 01/14/2023 03:27 Calcium 9.7 mg/dL (Normal)?? 01/14/2023 03:27 Art iCa 1.2 mmol/L (Normal)?? 01/15/2023 08:29 Mg Lvl 2.0 mg/dL (Normal)?? 01/14/2023 03:27 Phosphorus 4.1 mg/dL (Normal)?? 01/14/2023 03:27 Estimated Creatinine Clearance 40.83 mL/min ()?? 01/14/2023 03:49 eGFR Cr 62 mL/min/1.73m2 (N/A)?? 01/14/2023 03:27 eGFR Pediatric Not Reported mL/min/1.73m2 (N/A)?? 01/14/2023 03:27 MAR Glucose Result 147 ()?? 01/15/2023 11:33 ? General Hematology WBC 9.10 x10e3/mcL (Normal)?? 01/14/2023 03:27 RBC 4.32 x10e6/mcL (Low)?? 01/14/2023 03:27 Hgb 14.20 gm/dL (Normal)?? 01/14/2023 03:27 Hct 41.60 % (Normal)?? 01/14/2023 03:27 MCV 96.2 Femtoliters (Normal)?? 01/14/2023 03:27 MCH 32.80 pg (Normal)?? 01/14/2023 03:27 MCHC 34.10 gm/dL (Normal)?? 01/14/2023 03:27 RDW-CV 14.20 % (Normal)?? 01/14/2023 03:27 RDW-SD 48.10 Femtoliters (High)?? 01/14/2023 03:27 Plt 221 x10e3/mcL (Normal)?? 01/14/2023 03:27 MPV 8.20 Femtoliters (Normal)?? 01/14/2023 03:27 Neut % Auto 64.6 % (Normal)?? 01/14/2023 03:27 Lymph % Auto 18.7 % (Low)?? 01/14/2023 03:27 Payne % Auto 13.6 % (Normal)?? 01/14/2023 03:27 Eos % Auto 2.7 % (Normal)?? 01/14/2023 03:27 Baso % Auto 0.4 % (Normal)?? 01/14/2023 03:27 Neut # Auto 5.9 x10e3/mcL (Normal)?? 01/14/2023 03:27 Lymph # Auto 1.7 x10e3/mcL (Normal)?? 01/14/2023 03:27 Payne # Auto 1.2 x10e3/mcL (Normal)?? 01/14/2023 03:27 Eos # Auto 0.2 x10e3/mcL (Normal)?? 01/14/2023 03:27 Baso # Auto 0.0 x10e3/mcL (Normal)?? 01/14/2023 03:27 ? Allergies Allergies ?(Active and Proposed Allergies Only) codeine? (Severity: Unknown severity, Onset: Unknown) ?Reactions: hives penicillin? (Severity: Unknown severity, Onset: Unknown) ?Reactions: hives ? Objective Vital Signs (24 hrs) Last Charted?? Minimum?? Maximum?? Temp?? 36.7?? 01/15/2023 10:42?? 36.9?? 01/14/2023 16:01 ?? 37?? 01/14/2023 23:27?? Peripheral Pulse Rate?? 82?? 01/15/2023 10:42?? 69?? 01/14/2023 19:11 ?? 82?? 01/15/2023 10:42?? Resp Rate?? 18?? 01/15/2023 10:42?? 18?? 01/14/2023 16:01 ?? 18?? 01/14/2023 16:01?? SBP?? 107?? 01/15/2023 10:42?? 97?? 01/15/2023 04:21 ?? 123?? 01/14/2023 16:01?? DBP?? 63?? 01/15/2023 10:42?? L??55?? 01/14/2023 23:27 ?? 67?? 01/14/2023 19:11?? MAP?? 78?? 01/15/2023 10:42?? 70?? 01/15/2023 04:21 ?? 83?? 01/14/2023 19:11?? SpO2?? 98?? 01/15/2023 10:42?? 94?? 01/14/2023 16:01 ?? 99?? 01/14/2023 19:11?? O2 Flow Rate?? on 2 ? l/min? on 2 ? l/min O2 Therapy?? Nasal cannula?? Room air?? Nasal cannula ? Pain Scores (Last Within 24hrs) Numeric Pain Scale: 0 = No pain (04:00) ? I&O 24 Hour Total? 01/12 19:06 01/15 07:00 01/14 07:00 01/13 07:00 01/12 07:00 ?? 01/15 11:53 01/15 11:53 01/15 06:59 01/14 06:59 01/13 06:59 Intake ? 1840 ?200 ?820 ?820 ?0 Output ? 6525 ?0 ? 1050 ? 2275 ? 3200 Net Total ?-4685 ?200 ? -230 ?-1455 ?-3200 Stool Count ?1 ?0 ?0 ?1 ?0 ? General: Alert, in no acute cardiopulmonary distress. On O2 via NC F/D F.N Mental Status: Oriented to person, place and time. Head: Normocephalic. Eyes: Pupils are equal, round and reactive to light. . Ear, Nose and Throat: Oropharynx clear, mucous membranes moist. Tight posterior pharynx. . Trachea midline. Neck: Supple, Full range of motion.Fullness of jugular veins Respiratory:?? Fair air entry?? CBVBS . No wheezing, rales or rhonchi. Cardiovascular: Heart sounds normal. No thrills. Regular rate and rhythm, no murmurs, rubs or gallops. Gastrointestinal: Abdomen soft, obese non-tender, non-distended. Normal bowel sounds. Genitourinary: No costovertebral angle tenderness. Neurologic: . No focal neurological deficits. . Skin: No rashes or lesions. No petechiae or purpura. Trace edema. Musculoskeletal: No cyanosis or clubbing. No gross deformities. Normal range of motion Hospital Course ?? Date of Service :?? 2/?? Hospitalist Progress Note ?? Chief Complaint : progressive SOB ?? Mr Ablert Chang : 77/M with COPD on Home O2 , chronic hypoxemic resp failure.?? Ischemic Cardiomyopathy EF 30 to 35%. Moderate mitral valve regurgitation.Mild-moderate tricuspid regurgitation. Non insulin Rxed DM2, HTN. HLD. Hypothyroidism. BPH. Depression , Hx Paroxysmal A Fib involvement , admitted and Rxed?? 01/02 to 01/05 for A Fib RVR?? Post DC cardioversion??on 01/04/23 ??200 J,??converted to??sinus rhythm On continuous oral anticoagulation ?? 01/12/23 Heart ER Adm with SOB, orthopnea seen at office of Heart [facility] Dr Yanes and sent to [facility] for Eval and Rx and Hospital Adm ?? 24 Hour Interval Course Cumulative? 4.85 L negative fluid balance. ??Appears comfortable, seated upright by side of bed.On O2 via NC. ??No chest pain, palpitations, dizziness, near syncope. No fever. No arrhythmia. Serial Troponins are negative. BNP 505 . ABG 7.45/ 45.5 /51.8 on RA??. BUN 13? K 3.2?? personally reviewed image CXR :?Diffuse bilateral lung opacities consistent with pulmonary edema, small right pleural effusion and right basilar atelectasis ?? . ??Pneumonia cannot be excluded. ??Rx deescalation, stopping Bumetanude, adding Spironolactone, Farxiga and low dose Sacubitril Valsartan. ??O2 supplementation arrangments upon DC pending., Antibiotics , Neb Rx ? Assessment/Plan Diagnoses 1. ??Acute combined systolic and diastolic CHF, NYHA class 3 ??(I50.41) 2. ??Acute cardiac pulmonary edema ??(I50.1) 3. ??Diabetes ??(E11.9) 4. ??Hyperlipemia ??(E78.5) 5. ??Atrial fibrillation ??(I48.91) 6. ??HTN (hypertension) ??(I10) 7. ??CAD in [place] artery ??(I25.10) 8. ??Presence of stent in coronary artery ??(Z95.5) Acute on Chronic Hypercapneic Hypoxemic Respiratory ??Failure Obesity BMI 36.67 JAME on CKD Stage II ?? Plan : Inpatient Admission Telemetry Monitoring Oxygen Supplementation Aggressive Diuresis Salt and Fluid Restriction Strict Intake and Output Nebulizer Rx Empiric Antibiotics ?? amiodarone 200 mg Tab (amiodarone) ??200 mg 1 Tabs, Oral, Daily apixaban 5 mg Tab (apixaban) ??5 mg 1 Tabs, Oral, BID ascorbic acid 500 mg Tab (Vitamin C) ??500 mg 1 Tabs, Oral, BID aspirin 81 mg Chew Tab (aspirin) ??81 mg 1 Tabs, Chewed, Daily atorvastatin 40 mg Tab (atorvastatin) ??40 mg 1 Tabs, Oral, qHS cyanocobalamin 1000 mcg/mL INJ SOLN (cyanocobalamin) ??1,000 mcg 1 mL, IntraMuscular, qMonday dapagliflozin 10 mg Tab (Farxiga) ??10 mg 1 Tabs, Oral, Daily docusate sodium 100 mg Cap (docusate sodium) ??100 mg 1 Caps, Oral, BID famotidine 20 mg Tab (Pepcid) ??20 mg 1 Tabs, Oral, BID finasteride 5 mg Tab (Proscar) ??5 mg 1 Tabs, Oral, Daily FLUoxetine 20 mg Cap (PROzac) ??20 mg 1 Caps, Oral, Daily Hypoglycemia Protocol Advisor ??Protocol, N/A, Daily insulin aspart NovoLOG 1 unit/ 0.01mL syringe (insulin aspart NovoLog correctional scale Low) ??sliding scale low, SubCutaneous, Before Meals and HS insulin aspart NovoLOG 1 unit/ 0.01mL syringe (insulin aspart NovoLog correctional scale Low) ??2-8units, SubCutaneous, Before Meals and HS levothyroxine 25 mcg (0.025 mg) Tab (Synthroid) ??25 mcg 1 Tabs, Oral, Daily loratadine 10 mg Tab (loratadine) ??10 mg 1 Tabs, Oral, Daily metoprolol succinate 50 mg XL Tab (Metoprolol Succinate ER) ??50 mg 1 Tabs, Oral, qHS nitroglycerin 2% Top Oint 1 gm (Nitro-Bid) ??1 inch, Topical, q6H Non-Formulary Medication (saw palmetto 450 mg oral capsule) ??450 mg, Oral, BID Protocols (Potassium Chloride - Oral & IV) ??Protocol, N/A, Daily Protocols (Magnesium Oxide - Oral) ??Protocol, N/A, Daily Protocols (Magnesium Sulfate - IV) ??Protocol, N/A, Daily Protocols (Sodium Phosphate - Oral) ??Protocol, N/A, Daily Protocols (Sodium Phosphate - IV) ??Protocol, N/A, Daily Protocols (Potassium Chloride - Oral & IV) ??Protocol, N/A, Daily sacubitril-valsartan 24 mg-26 mg Tab (Entresto 24 mg-26 mg oral tablet) ??1 Tabs, Oral, BID spironolactone 25 mg Tab (spironolactone) ??25 mg 1 Tabs, Oral, Daily tamsulosin 0.4 mg SA Cap (Flomax) ??0.4 mg 1 Caps, Oral, BID ?? GI and DVT Prophylaxis ?? Condition stable ??Prognosis?? fair ?? Further as per clinical evolution ?? Dispo Home with Family care when stable/ Home Oxygen ?Per Pulm ??Assessment/Plan Diagnoses ?? Acute on chronic??respiratory failure , PO2 on room air is 51 Acute on chronic congestive heart failure with reduced ejection fraction 30-35 Atrial fibrillation with rapid ventricular response, electrical??cardioversion??January 04, 2022 Chronic obstructive pulmonary disease former heavy smoker Obstructive sleep apnea??and hypersomnia on on home CPAP Adult BMI 34.0-34.9 kg/sq m BPH Hypothyroid diabetes mellitus? Plan : ?? Arrange for home oxygen CPAP??12 cm H2O nighttime and as needed??daytime Continue??carvedilol and and the Bumex he will be given Diamox for 4 days bronchodilators only on as needed basis albuterol 1.25 mg every 8 hours Continue??DVT prophylaxis with Lovenox Discharge planning as per primary ? Signature Line Electronically Signed By: Ashutosh Church MD On: 01.15.2023 09:54 NET C DEVELOPER ? Diagnoses 1. ??Acute combined systolic and diastolic CHF, NYHA class 3 ??(I50.41) 2. ??Acute cardiac pulmonary edema ??(I50.1) 3. ??Diabetes ??(E11.9) 4. ??Hyperlipemia ??(E78.5) 5. ??Atrial fibrillation ??(I48.91) 6. ??HTN (hypertension) ??(I10) 7. ??CAD in [place] artery ??(I25.10) 8. ??Presence of stent in coronary artery ??(Z95.5) ? 79-year-old male with significant past medical history of diabetes, hypertension, hyperlipidemia, atrial fibrillation??on anticoagulation with??Eliquis 5 mg p.o. twice daily,??systolic heart failure depressed LVEF 30- 35%, presented to the hospital acute??on chronic heart failure exacerbation. ?He was initiated on??diuretics with good effect. ??Net negative over the past??48 hours.. ?Patient appears well compensated on exam.?Continue Entresto low-dose ?Continue??spironolactone 25 mg p.o. daily starting tomorrow ?Continue Lasix??40 mg??9 AM and 2 PM. -We will order??acetazolamide??to 250 mg??p.o. daily??for 5 days ??? Continue home metoprolol 50 mg XL daily ?Strict I's and O's, daily weight, keep K greater than 4 mag??greater than 2 ?Continue amiodarone??100 mg??mg p.o. daily, continue Eliquis 5 mg p.o. twice daily for CVA??prophylaxis ?Continue high intensity statin ?Continue management of COPD per primary team ?Continue management of diabetes and hypothyroidism per primary team ?? Patient may be discharged home??from cardiology standpoint review.?? He needs to??have cardiac rehab??as outpatient.?? Outpatient follow-up with cardiology??this Sunday??at 2:30 PM.?? When he comes to clinic we will order labs??and review his medications??tolerance.?? He will need home oxygen. ?? Discussed case with ??[place]??from pulmonary team??and Dr. Plummer??primary??physician??and nursing staff.?? Discussed case with the patient and family. ?Order Date/Time ??Order Action ??Order Name ??Order Detail ??01/15/2023 09:41 ??Order ??acetaZOLAMIDE 250 mg Tab ??250 mg, 1 Tabs, Oral, q6H ? Signature Line Electronically Signed By: Josh Yanes MD On: 01.15.2023 10:03 NET C DEVELOPER ? Stable for DC once O2 arranged for Home See detailed summary above ?? Case discussed with Dr Yanes and Dr Church ?? 55 min spent on discharge process including clinical exam, review of hospital course, medication reconciliation, arrangement of post acute care followup and patient education, more than half of the time spent at patient's bedside in coordination of care. Electronically Signed By: Margi Plummer MD On: 01.15.2023 11:58 NET C DEVELOPER Note * Harish MODI, Robin Webster: PERFORM Event Display: Consult - Pulmonology Authored Date: Chief Complaint/Reason for Consultation Shortness of breath, COPD with exacerbation, and respiratory failure. History of Present Illness The patient is a 77 years old male with a history of chronic hypoxemic respiratory failure.?? He asmita oxygen at home,??but is using??his 's oxygen machine.?? He has a history of COPD as well.?? He was admitted with shortness of breath and??acute combined systolic and diastolic congestive heartfailure.?? He was noted to have hypoxemia on room air and pulmonary evaluation has been requested.?? He states he was prescribed oxygen several years ago for COPD,??but then he got better??and the oxygen was removed.?? Over the past 2 or 3 months, he has noted progressive dyspnea on exertion, which became significantly worse??when he came to the hospital.?? He also had palpitations??and chest pa in.?? On admission, he had atrial fibrillation with rapid ventricular response.?? Currently, he feels significantly better.?? He reports??dyspnea on exertion, but denies cough or sputum production atthis time. ??He denies wheezing as well. Review of Systems Review of Systems Constitutional: No fever, chills. HEENT: No??nasal congestion or??runny nose. Skin: No rash or itching. Cardiovascular: No chest pain, palpitations or pedal edema. Respiratory: see HPI. Gastrointestinal: No vomiting or diarrhea. Genitourinary: No dysuria or hematuria. Neurologic: No??syncope or seizures. Musculoskeletal: No joint pain or stiffness. Hematologic: No bleeding or bruising. Psychiatric: No depression or anxiety. Objective Measurements (most recent)?? Height 160.02 cm?Johnson RN, Jeanne ??01/12 18:18 Weight 91.30 kg?Myers PCT, [place] ??01/14 06:20 Body Mass Index 35.66 kg/m2?Myers PCT, [place] ??01/14 06:20 Scale Type Standing?Myers PCT, [place] ??01/14 06:20 ? Vital Signs (24 hrs) Last Charted?? Minimum?? Maximum?? Temp?? L??36.1?? 01/14/2023 11:31?? 36.9?? 01/13/2023 16:07 ?? 37?? 01/13/2023 22:59?? Peripheral Pulse Rate?? 88?? 01/14/2023 11:31?? 67?? 01/14/2023 03:21 ?? 88?? 01/14/2023 11:31?? Resp Rate?? 18?? 01/14/2023 11:31?? 18?? 01/13/2023 19:00 ?? 20?? 01/13/2023 16:07?? SBP?? 108?? 01/14/2023 11:31?? 108?? 01/14/2023 11:31 ?? 133?? 01/13/2023 22:59?? DBP?? 72?? 01/14/2023 11:31?? 65?? 01/13/2023 16:07 ?? 74?? 01/13/2023 22:59?? MAP?? 84?? 01/14/2023 11:31?? 81?? 01/14/2023 07:25 ?? 94?? 01/13/2023 22:59?? SpO2?? 97?? 01/14/2023 11:31?? 97?? 01/13/2023 19:00 ?? 100?? 01/14/2023 07:25?? O2 Flow Rate?? on 3 ? l/min?? on 3 ? l/min?? on 3 ? l/min O2 Therapy?? Nasal cannula?? Nasal cannula?? Nasal cannula ? I&O 24 Hour Total? 01/12 19:06 01/14 07:00 01/13 07:00 01/12 07:00 01/11 07:00 ?? 01/14 13:01 01/14 13:01 01/14 06:59 01/13 06:59 01/12 06:59 Intake ?820 ?0 ?820 ?0 ?0 Output ? 5475 ?0 ? 2275 ? 3200 ?0 Net Total ?-4655 ?0 ?-1455 ?-3200 ?0 Stool Count ?1 ?0 ?1 ?0 ?0 ? Physical Exam Physical Exam General: awake, alert, in no acute cardiopulmonary distress. Head: Normocephalic. Eyes: Pupils are equal, round and reactive to light. Neck: Supple, no JVD. Respiratory: diminished breath sounds bilaterally. No wheezing, rales or rhonchi. Cardiovascular: Heart sounds normal. Regular rate and rhythm, no murmurs, rubs or gallops. Musculoskeletal: No cyanosis or clubbing.?? No lower extremity edema. Assessment/Plan Assessment:? Dyspnea. Acute on chronic hypoxemic respiratory failure. Previously home oxygen dependent, but no longer has oxygen at home. Acute??congestive heart failure on presentation.??Ejection fraction 30 to 35%.??Mitral regurgitation. No mention of pulmonary hypertension on 2D echo. Atrial fibrillation with rapid ventricular response on presentation. COPD, not with acute exacerbation at this time. History of heavy tobacco use. Obstructive sleep apnea, on CPAP at home. CAD with history of PTCA. Hyperlipidemia. Hypertension. Acute on chronic renal failure. ?? Patient's chronic dyspnea secondary to congestive heart failure, COPD,??with acute worsening due toatrial fibrillation with rapid ventricular response on admission.??He also has obstructive sleep apnea and is on CPAP at home.??He has been using his 's oxygen machine, but he needs one of his own.??He used to be on oxygen several years ago at home, but it was discontinued. ?? Plan: Arrange for oxygen supplementation upon discharge. Bronchodilators as needed.??Avoid beta-2 agonists due to atrial fibrillation and rapid ventricular response. Continue CPAP??at home. Heart failure management and??atrial fibrillation as per cardiology and admitting doctor. Increase physical activity as tolerated. Supportive measures.??Condition is serious and prognosis is guarded. Patient's was at bedside, she was updated on the condition and plan, all questions answered.??Case also discussed with patient's nurse. ? Histories Allergies Allergies ?(Active and Proposed [...] Home Medications amiodarone (amiodarone 200 mg oral tablet)?200?Milligram?1?Tabs?By Mouth?Daily apixaban (apixaban 5 mg oral tablet)?5?Milligram?1?Tabs?By Mouth?2 Times a Day ascorbic acid (Vitamin C 500 mg oral capsule)?500?Milligram?1?Capsules?By Mouth?2Times a Day aspirin (aspirin 81 mg oral tablet, chewable)?81?Milligram?1?Tabs?Chewed?Daily atorvastatin (atorvastatin 40 mg oral tablet)?40?Milligram?1?Tabs?By Mouth?at Bedtime cyanocobalamin (cyanocobalamin 1000 mcg/mL injectable solution)?1,000?Microgram?Intramuscular?Every Sunday cyclobenzaprine (cyclobenzaprine 10 mg oral tablet)?10?Milligram?1?Tabs?By Mouth?at Bedtime docusate (docusate sodium 100 mg oral tablet)?100?Milligram?1?Tabs?By Mouth?2 Times a Day finasteride (Proscar 5 mg oral tablet)?5?Milligram?1?Tabs?By Mouth?Daily FLUoxetine (PROzac 20 mg oral capsule)?20?Milligram?1?Capsules?By Mouth?Daily furosemide (Lasix 80 mg oral tablet)?40?Milligram?0.5?Tabs?By Mouth?2 Times a Day levothyroxine (Synthroid 25 mcg (0.025 mg) oral tablet)?25?Microgram?1?Tabs?By Mouth?Daily loratadine (loratadine 10 mg oral tablet)?10?Milligram?1?Tabs?By Mouth?Daily metFORMIN (metFORMIN 500 mg oral tablet)?500?Milligram?1?Tabs?By Mouth?Daily?as needed?Blood Glucose (please specify)?for blood sugar over 200 metOLazone (metOLazone 5 mg oral tablet)?5?Milligram?1?Tabs?By Mouth?Daily metoprolol (Metoprolol Succinate ER 50 mg oral tablet, extended release)?50?Milligram?1?Tabs?By Mouth?at Bedtime multivitamin with minerals (Centrum Silver oral tablet)?1?Tabs?By Mouth?2 Times a Day pantoprazole (Protonix 20 mg oral enteric coated tablet)?20?Milligram?1?Tabs?By Mouth?Daily saw palmetto (saw palmetto 450 mg oral capsule)?450?Milligram?1?Each?By Mouth?2 Times a Day tamsulosin (Flomax 0.4 mg oral capsule)?0.4?Milligram?1?Capsules?By Mouth?2 Timesa Day ? Inpatient Medications Medications (34) Active SCHEDULED: (28) amiodarone 200 mg Tab (amiodarone) ??200 mg 1 Tabs, Oral, Daily apixaban 5 mg Tab (apixaban) ??5 mg 1 Tabs, Oral, BID ascorbic acid 500 mg Tab (Vitamin C) ??500 mg 1 Tabs, Oral, BID aspirin 81 mg Chew Tab (aspirin) ??81 mg 1 Tabs, Chewed, Daily atorvastatin 40 mg Tab (atorvastatin) ??40 mg 1 Tabs, Oral, qHS cyanocobalamin 1000 mcg/mL INJ SOLN (cyanocobalamin) ??1,000 mcg 1 mL, IntraMuscular, qMonday dapagliflozin 10 mg Tab (Farxiga) ??10 mg 1 Tabs, Oral, Daily docusate sodium 100 mg Cap (docusate sodium) ??100 mg 1 Caps, Oral, BID famotidine 20 mg Tab (Pepcid) ??20 mg 1 Tabs, Oral, BID finasteride 5 mg Tab (Proscar) ??5 mg 1 Tabs, Oral, Daily FLUoxetine 20 mg Cap (PROzac) ??20 mg 1 Caps, Oral, Daily Hypoglycemia Protocol Advisor ??Protocol, N/A, Daily insulin aspart NovoLOG 1 unit/ 0.01mL syringe (insulin aspart NovoLog correctional scale Low) ??sliding scale low, SubCutaneous, Before Meals and HS insulin aspart NovoLOG 1 unit/ 0.01mL syringe (insulin aspart NovoLog correctional scale Low) ??2-8units, SubCutaneous, Before Meals and HS levothyroxine 25 mcg (0.025 mg) Tab (Synthroid) ??25 mcg 1 Tabs, Oral, Daily loratadine 10 mg Tab (loratadine) ??10 mg 1 Tabs, Oral, Daily metoprolol succinate 50 mg XL Tab (Metoprolol Succinate ER) ??50 mg 1 Tabs, Oral, qHS nitroglycerin 2% Top Oint 1 gm (Nitro-Bid) ??1 inch, Topical, q6H Non-Formulary Medication (saw palmetto 450 mg oral capsule) ??450 mg, Oral, BID Protocols (Potassium Chloride - Oral & IV) ??Protocol, N/A, Daily Protocols (Magnesium Oxide - Oral) ??Protocol, N/A, Daily Protocols (Magnesium Sulfate - IV) ??Protocol, N/A, Daily Protocols (Sodium Phosphate - Oral) ??Protocol, N/A, Daily Protocols (Sodium Phosphate - IV) ??Protocol, N/A, Daily Protocols (Potassium Chloride - Oral & IV) ??Protocol, N/A, Daily sacubitril-valsartan 24 mg-26 mg Tab (Entresto 24 mg-26 mg oral tablet) ??1 Tabs, Oral, BID spironolactone 25 mg Tab (spironolactone) ??25 mg 1 Tabs, Oral, Daily tamsulosin 0.4 mg SA Cap (Flomax) ??0.4 mg 1 Caps, Oral, BID CONTINUOUS: (0) PRN: (6) acetaminophen 325 mg Tab (Tylenol) ??650 mg 2 Tabs, Oral, q4H albuterol-ipratropium Inh Janet 3 mL (ipratropium-albuterol) ??3 mL, NEB, q4H dextromethorphan-guaiFENesin 20 mg-200 mg/10 mL (Robitussin DM) ??10 mL, Oral, q4H docusate sodium 100 mg Cap (Colace) ??100 mg 1 Caps, Oral, BID ondansetron 4 mg/2 mL vial (Zofran) ??4 mg 2 mL, IV Push, q6H ondansetron 4 mg/2 mL vial (Zofran) ??4 mg 2 mL, IV Push, q4H ? 72 hour Antibiotic History No qualifying data available... ? Results Recent Labs Cardiac BNP 235.0 pg/mL (High)?? 01/14/2023 03:27 Troponin TNIH 18.8 ng/L (Normal)?? 01/13/2023 00:02 ?? General Chemistry Glucose Level 186 mg/dL (High)?? 01/14/2023 03:27 POC Glucose 137 mg/dL (High)?? 01/14/2023 11:32 Sodium 136 mmol/L (Normal)?? 01/14/2023 03:27 Potassium 3.8 mmol/L (Normal)?? 01/14/2023 03:27 Chloride 97 mmol/L (Low)?? 01/14/2023 03:27 CO2 36 mmol/L (High)?? 01/14/2023 03:27 Anion Gap 3 mmol/L (Normal)?? 01/14/2023 03:27 BUN 20 mg/dL (High)?? 01/14/2023 03:27 Creatinine 1.2 mg/dL (Normal)?? 01/14/2023 03:27 BUN/Creat Ratio 16.67 Ratio (Normal)?? 01/14/2023 03:27 Calcium 9.7 mg/dL (Normal)?? 01/14/2023 03:27 Mg Lvl 2.0 mg/dL (Normal)?? 01/14/2023 03:27 Phosphorus 4.1 mg/dL (Normal)?? 01/14/2023 03:27 Estimated Creatinine Clearance 40.83 mL/min ()?? 01/14/2023 03:49 eGFR Cr 62 mL/min/1.73m2 (N/A)?? 01/14/2023 03:27 eGFR Pediatric Not Reported mL/min/1.73m2 (N/A)?? 01/14/2023 03:27 MAR Glucose Result 137 ()?? 01/14/2023 11:40 ?? General Hematology WBC 9.10 x10e3/mcL (Normal)?? 01/14/2023 03:27 RBC 4.32 x10e6/mcL (Low)?? 01/14/2023 03:27 Hgb 14.20 gm/dL (Normal)?? 01/14/2023 03:27 Hct 41.60 % (Normal)?? 01/14/2023 03:27 MCV 96.2 Femtoliters (Normal)?? 01/14/2023 03:27 MCH 32.80 pg (Normal)?? 01/14/2023 03:27 MCHC 34.10 gm/dL (Normal)?? 01/14/2023 03:27 RDW-CV 14.20 % (Normal)?? 01/14/2023 03:27 RDW-SD 48.10 Femtoliters (High)?? 01/14/2023 03:27 Plt 221 x10e3/mcL (Normal)?? 01/14/2023 03:27 MPV 8.20 Femtoliters (Normal)?? 01/14/2023 03:27 Neut % Auto 64.6 % (Normal)?? 01/14/2023 03:27 Lymph % Auto 18.7 % (Low)?? 01/14/2023 03:27 Payne % Auto 13.6 % (Normal)?? 01/14/2023 03:27 Eos % Auto 2.7 % (Normal)?? 01/14/2023 03:27 Baso % Auto 0.4 % (Normal)?? 01/14/2023 03:27 Neut # Auto 5.9 x10e3/mcL (Normal)?? 01/14/2023 03:27 Lymph # Auto 1.7 x10e3/mcL (Normal)?? 01/14/2023 03:27 Payne # Auto 1.2 x10e3/mcL (Normal)?? 01/14/2023 03:27 Eos # Auto 0.2 x10e3/mcL (Normal)?? 01/14/2023 03:27 Baso # Auto 0.0 x10e3/mcL (Normal)?? 01/14/2023 03:27 ? Abnormal Labs ?? Cardiac ??BNP ??235.0 pg/mL (High) ??01/14/2023 03:27 ? General Chemistry ??BUN ??20 mg/dL (High) ??01/14/2023 03:27 ??CO2 ??36 mmol/L (High) ??01/14/2023 03:27 ??Chloride ??97 mmol/L (Low) ??01/14/2023 03:27 ??Glucose Level ??186 mg/dL (High) ??01/14/2023 03:27 ??POC Glucose ??137 mg/dL (High) ??01/14/2023 11:32 ? General Hematology ??Lymph % Auto ??18.7 % (Low) ??01/14/2023 03:27 ??RBC ??4.32 x10e6/mcL (Low) ??01/14/2023 03:27 ??RDW-SD ??48.10 Femtoliters (High) ??01/14/2023 03:27 ? Note: Critical results are displayed in red. ? CBC, BMP, Coagulation Trend (last 4 resulted) WBC 9.10 ?? 01/14/2023 ??03:27 ? Hgb 14.20 ?? 01/14/2023 ??03:27 ? Hct 41.60 ?? 01/14/2023 ??03:27 ? Baso # Auto 0.0 ?? 01/14/2023 ??03:27 ? Baso % Auto 0.4 ?? 01/14/2023 ??03:27 ? Eos # Auto 0.2 ?? 01/14/2023 ??03:27 ? Eos % Auto 2.7 ?? 01/14/2023 ??03:27 ? Lymph # Auto 1.7 ?? 01/14/2023 ??03:27 ? Lymph % Auto 18.7 ??L?? 01/14/2023 ??03:27 ? Payne # Auto 1.2 ?? 01/14/2023 ??03:27 ? Payne % Auto 13.6 ?? 01/14/2023 ??03:27 ? Neut # Auto 5.9 ?? 01/14/2023 ??03:27 ? Neut % Auto 64.6 ?? 01/14/2023 ??03:27 ? Plt 221 ?? 01/14/2023 ??03:27 ? Glucose Level 186 ??H?? 01/14/2023 ??03:27 137 ??H?? 01/13/2023 ??04:22 ? Sodium 136 ?? 01/14/2023 ??03:27 137 ?? 01/13/2023 ??04:22 ? Potassium 3.8 ?? 01/14/2023 ??03:27 3.2 ??L?? 01/13/2023 ??04:22 ? Chloride 97 ??L?? 01/14/2023 ??03:27 99 ?? 01/13/2023 ??04:22 ? CO2 36 ??H?? 01/14/2023 ??03:27 37 ??H?? 01/13/2023 ??04:22 ? BUN 20 ??H?? 01/14/2023 ??03:27 13 ?? 01/13/2023 ??04:22 ? Creatinine 1.2 ?? 01/14/2023 ??03:27 1.0 ?? 01/13/2023 ??04:22 ? BUN/Creat Ratio 16.67 ?? 01/14/2023 ??03:27 13.00 ?? 01/13/2023 ??04:22 ? Mg Lvl 2.0 ?? 01/14/2023 ??03:27 2.2 ?? 01/13/2023 ??04:22 ? Phosphorus 4.1 ?? 01/14/2023 ??03:27 ? Calcium 9.7 ?? 01/14/2023 ??03:27 9.4 ?? 01/13/2023 ??04:22 ? Differential (Last Within 24hrs)?? - Automated -?? Neut % Auto: 64.6 % (03:27) Lymph % Auto:??18.7 %??Low (03:27) Payne % Auto: 13.6 % (03:27) Eos % Auto: 2.7 % (03:27) Baso % Auto: 0.4 % (03:27) Neut # Auto: 5.9 x10e3/mcL (03:27) Lymph # Auto: 1.7 x10e3/mcL (03:27) Payne # Auto: 1.2 x10e3/mcL (03:27) Eos # Auto: 0.2 x10e3/mcL (03:27) Baso # Auto: 0 x10e3/mcL (03:27) ? BMP, Mg, and Phos (Last Within 24hrs) Sodium: 136 mmol/L (03:27) Potassium: 3.8 mmol/L (03:27) Chloride:??97 mmol/L??Low (03:27) CO2:??36 mmol/L??High (03:27) BUN:??20 mg/dL??High (03:27) Creatinine: 1.2 mg/dL (03:27) Glucose Level:??186 mg/dL??High (03:27) Calcium: 9.7 mg/dL (03:27) Mg Lvl: 2 mg/dL (:27) Phosphorus: 4.1 mg/dL (03:27) ? Procedure ?Other Procedure ?2D Echo Summary: 1. Left ventricular ejection fraction, by visual estimation, is 30 to 35%. 2. Moderately dilated left atrium. 3. Left atrial appendage visualized in multiple angles and no thrombus seen. 4. Small pericardial effusion, as described above. 5. Moderate mitral valve regurgitation. 6. Mild-moderate tricuspid regurgitation. 7. Moderate aortic valve sclerosis is present, with no evidence of aortic valve stenosis. 8. Non coronary cusp thickened. 9. The pulmonic valve is trileaflet, without evidence of stenosis or insufficiency. 10. Small plaque involving the descending aorta. Saline contrast bubble study was negative, with no evidence of any intracardiac shunt. 11.12. Lipomatous hypertrophy of the atrial septum. ?? Image ?CT Thorax w/o Contrast??01/13/2023 18:37 by KeshavDemocraviseJosh. ? Reason For Exam ?? Abnormal CXR ?? [facility] ?? HISTORY:Abnormal CXR CT CHEST WITHOUT CONTRAST: RADIATION DOSE TECHNIQUE: Automated exposure control FINDINGS: Small pleural effusions are present with nonspecific scarring and atelectasis. No specific consolidative airspace disease. No gross pulmonary nodule or mass. The heart size is mildly enlarged. Small pericardial effusion is present. Atherosclerotic disease involves the aorta and its majorbranches. No significant thoracic adenopathy. The upper intra-abdominal organs are not imaged in their entirety. No gross abnormality is seen. The bones are osteopenic with generalized degenerative changes. IMPRESSION: Small pleural effusions with nonspecific scarring and atelectasis. See above formore details. This document was electronically signed by Shailesh Campo MD 01/14/2023 10:28 AM ?? Electronically Signed By: Robin Moreira MD On: 01.14.2023 13:02 NET C DEVELOPER * Ricardo MODI, Gabriel Dc: MODIFY, PERFORM Event Display: Consult - Cardiology Authored Date: Chief Complaint/Reason for Consultation Chest pain and shortness of breath. Elevated BNP History of Present Illness 77-year-old male with significant past medical history of diabetes, hypertension, hyperlipidemia, COPD??on home oxygen, CHF LVEF 30-35%, atrial fibrillation on anticoagulation amiodarone,??who presented to the hospital worsening shortness of breath. ??On initial presentation, he was hemodynamically stable. ??Chest x-ray evidence of pulm edema. ??High sensitive troponin negative x3, BNP elevated 500.?? EKG sinus rhythm, right bundle branch block, right axis deviation??no ST-T segment changes concerning for ischemia. Cardiology consult for evaluation.?? On exam today,??he was laying in bed in no acute distress. ??Denies chest pain tightness or pressure. Review of Systems All other systems were reviewed and are negative Objective Vital Signs (24 hrs) Last Charted?? Minimum?? Maximum?? Temp?? 36.5?? 01/13/2023 03:36?? 36.8?? 01/12/2023 18:00 ?? 36.8?? 01/12/2023 18:00?? Heart Rate Monitored?? 96?? 01/12/2023 20:07?? 94?? 01/12/2023 19:00 ?? 96?? 01/12/2023 20:00?? Resp Rate?? 18?? 01/13/2023 07:31?? 18?? 01/12/2023 19:00 ?? 18?? 01/12/2023 19:00?? SBP?? 115?? 01/13/2023 07:31?? 105?? 01/13/2023 03:36 ?? H??144?? 01/12/2023 19:00?? DBP?? 73?? 01/13/2023 07:31?? 68?? 01/13/2023 03:36 ?? H??88?? 01/12/2023 19:00?? MAP?? 87?? 01/13/2023 07:31?? 80?? 01/13/2023 03:36 ?? 110?? 01/12/2023 19:00?? SpO2?? 98?? 01/13/2023 07:31?? L??92?? 01/12/2023 19:00 ?? 99?? 01/12/2023 20:00?? O2 Flow Rate?? on 3 ? l/min? O2 Therapy?? Nasal cannula?? Room air?? Room air ? I&O 24 Hour Total? 01/12 19:06 01/13 07:00 01/12 07:00 01/11 07:00 01/10 07:00 ?? 01/13 11:26 01/13 11:26 01/13 06:59 01/12 06:59 01/11 06:59 Intake ?0 ?0 ?0 ?0 ?0 Output ? 3200 ?0 ? 3200 ?0 ?0 Net Total ?-3200 ?0 ?-3200 ?0 ?0 ? Physical Exam General: Alert, in no acute cardiopulmonary distress. Mental Status: Oriented to person, place and time. Normal affect. Respiratory: Decreased breath sounds in bilateral lower bases Cardiovascular: Heart sounds normal. No thrills. Regular rate and rhythm, no murmurs, rubs or gallops. Gastrointestinal: Abdomen soft, non-tender, non-distended. Normal bowel sounds. No pulsatile mass. No hepatosplenomegaly. Genitourinary: No costovertebral angle tenderness.. Skin: No rashes or lesions. No petechiae or purpura. No eema. Musculoskeletal: No cyanosis or clubbing. No gross deformities. Normal range of motion. Assessment/Plan Diagnoses 1. ??Acute combined systolic and diastolic CHF, NYHA class 3 ??(I50.41) 2. ??Acute cardiac pulmonary edema ??(I50.1) 3. ??Diabetes ??(E11.9) 4. ??Hyperlipemia ??(E78.5) 5. ??Atrial fibrillation ??(I48.91) 6. ??HTN (hypertension) ??(I10) 7. ??CAD in [place] artery ??(I25.10) 8. ??Presence of stent in coronary artery ??(Z95.5) ? 79-year-old male with significant past medical history of diabetes, hypertension, hyperlipidemia, atrial fibrillation??on anticoagulation with??Eliquis 5 mg p.o. twice daily,??systolic heart failure depressed LVEF 30- 35%, presented to the hospital acute??on chronic heart failure exacerbation. ?He was initiated on??diuretics with good effect. ??So far net negative -3 L over the past 24 hours. ??? Continue with??Bumex 1 mg IV twice daily ?We will discontinue metolazone at this time ??? Continue home metoprolol 50 mg XL daily ?Strict I's and O's, daily weight, keep K greater than 4 mag??greater than 2 ?With regards to atrial fibrillation,??continue amiodarone 200 mg p.o. daily, continue Eliquis 5 mg p.o. twice daily for CVA??prophylaxis ?Continue high intensity statin ?Continue management of COPD per primary team ?Continue management of diabetes and hypothyroidism per primary team ? I ??Dr. Gabriel Silva MD, who??has independently??and personally examined the patient and reviewed the patient's chart??for recent labs, imaging, exam findings, and treatment progress.?? I attest that??I spent??50?minutes for this visit. ?? Gabriel Silva MD Interventional Cardiology?? [facility] Clinics Cardiology ? Histories Allergies Allergies ?(Active and Proposed Allergies Only) codeine? (Severity: Unknown severity, Onset: Unknown) ?Reactions: hives penicillin? (Severity: Unknown severity, Onset: Unknown) ?Reactions: hives ? Past Medical History Active Problems(5) CHF (congestive heart failure) COPD (chronic obstructive pulmonary disease) Diabetes HTN (hypertension) Hyperlipemia ? Past Surgical History Cholecystectomy;: 2020 Appendectomy;: 03/20/64 inguinal hernia repair ? Social History Alcohol Details:??Current, 1-2 times per year Substance Abuse Details:??Denies Tobacco Details:??Denies ? Family History No Family History documented. ? Medications Home Medications amiodarone (amiodarone 200 mg oral tablet)?200?Milligram?1?Tabs?By Mouth?Daily apixaban (apixaban 5 mg oral tablet)?5?Milligram?1?Tabs?By Mouth?2 Times a Day ascorbic acid (Vitamin C 500 mg oral capsule)?500?Milligram?1?Capsules?By Mouth?2Times a Day aspirin (aspirin 81 mg oral tablet, chewable)?81?Milligram?1?Tabs?Chewed?Daily atorvastatin (atorvastatin 40 mg oral tablet)?40?Milligram?1?Tabs?By Mouth?at Bedtime cyanocobalamin (cyanocobalamin 1000 mcg/mL injectable solution)?1,000?Microgram?Intramuscular?Every Sunday cyclobenzaprine (cyclobenzaprine 10 mg oral tablet)?10?Milligram?1?Tabs?By Mouth?at Bedtime docusate (docusate sodium 100 mg oral tablet)?100?Milligram?1?Tabs?By Mouth?2 Times a Day finasteride (Proscar 5 mg oral tablet)?5?Milligram?1?Tabs?By Mouth?Daily FLUoxetine (PROzac 20 mg oral capsule)?20?Milligram?1?Capsules?By Mouth?Daily furosemide (Lasix 80 mg oral tablet)?40?Milligram?0.5?Tabs?By Mouth?2 Times a Day levothyroxine (Synthroid 25 mcg (0.025 mg) oral tablet)?25?Microgram?1?Tabs?By Mouth?Daily loratadine (loratadine 10 mg oral tablet)?10?Milligram?1?Tabs?By Mouth?Daily metFORMIN (metFORMIN 500 mg oral tablet)?500?Milligram?1?Tabs?By Mouth?Daily?as needed?Blood Glucose (please specify)?for blood sugar over 200 metOLazone (metOLazone 5 mg oral tablet)?5?Milligram?1?Tabs?By Mouth?Daily metoprolol (Metoprolol Succinate ER 50 mg oral tablet, extended release)?50?Milligram?1?Tabs?By Mouth?at Bedtime multivitamin with minerals (Centrum Silver oral tablet)?1?Tabs?By Mouth?2 Times a Day pantoprazole (Protonix 20 mg oral enteric coated tablet)?20?Milligram?1?Tabs?By Mouth?Daily saw palmetto (saw palmetto 450 mg oral capsule)?450?Milligram?1?Each?By Mouth?2 Times a Day tamsulosin (Flomax 0.4 mg oral capsule)?0.4?Milligram?1?Capsules?By Mouth?2 Timesa Day ? Inpatient Medications Medications (29) Active SCHEDULED: (23) amiodarone 200 mg Tab (amiodarone) ??200 mg 1 Tabs, Oral, Daily apixaban 5 mg Tab (apixaban) ??5 mg 1 Tabs, Oral, BID ascorbic acid 500 mg Tab (Vitamin C) ??500 mg 1 Tabs, Oral, BID aspirin 81 mg Chew Tab (aspirin) ??81 mg 1 Tabs, Chewed, Daily atorvastatin 40 mg Tab (atorvastatin) ??40 mg 1 Tabs, Oral, qHS bumetanide 0.25 mg/mL ??Vial 4 mL (bumetanide) ??1 mg 4 mL, IV Push, Daily cyanocobalamin 1000 mcg/mL INJ SOLN (cyanocobalamin) ??1,000 mcg 1 mL, IntraMuscular, qMonday docusate sodium 100 mg Cap (docusate sodium) ??100 mg 1 Caps, Oral, BID famotidine 20 mg Tab (Pepcid) ??20 mg 1 Tabs, Oral, BID finasteride 5 mg Tab (Proscar) ??5 mg 1 Tabs, Oral, Daily FLUoxetine 20 mg Cap (PROzac) ??20 mg 1 Caps, Oral, Daily Hypoglycemia Protocol Advisor ??Protocol, N/A, Daily insulin aspart NovoLOG 1 unit/ 0.01mL syringe (insulin aspart NovoLog correctional scale Low) ??sliding scale low, SubCutaneous, Before Meals and HS insulin aspart NovoLOG 1 unit/ 0.01mL syringe (insulin aspart NovoLog correctional scale Low) ??2-8units, SubCutaneous, Before Meals and HS levothyroxine 25 mcg (0.025 mg) Tab (Synthroid) ??25 mcg 1 Tabs, Oral, Daily loratadine 10 mg Tab (loratadine) ??10 mg 1 Tabs, Oral, Daily metolazone 5 mg Tab (metOLazone 5 mg oral tablet) ??5 mg 1 Tabs, Oral, Daily metoprolol succinate 50 mg XL Tab (Metoprolol Succinate ER) ??50 mg 1 Tabs, Oral, qHS nitroglycerin 2% Top Oint 1 gm (Nitro-Bid) ??1 inch, Topical, q6H Non-Formulary Medication (saw palmetto 450 mg oral capsule) ??450 mg, Oral, BID potassium chloride 10 mEq ER Tab (potassium chloride) ??30 mEq 3 Tabs, Oral, q3H Interval Protocols (Potassium Chloride - Oral & IV) ??Protocol, N/A, Daily tamsulosin 0.4 mg SA Cap (Flomax) ??0.4 mg 1 Caps, Oral, BID CONTINUOUS: (0) PRN: (6) acetaminophen 325 mg Tab (Tylenol) ??650 mg 2 Tabs, Oral, q4H albuterol-ipratropium Inh Janet 3 mL (ipratropium-albuterol) ??3 mL, NEB, q4H dextromethorphan-guaiFENesin 20 mg-200 mg/10 mL (Robitussin DM) ??10 mL, Oral, q4H docusate sodium 100 mg Cap (Colace) ??100 mg 1 Caps, Oral, BID ondansetron 4 mg/2 mL vial (Zofran) ??4 mg 2 mL, IV Push, q6H ondansetron 4 mg/2 mL vial (Zofran) ??4 mg 2 mL, IV Push, q4H ? 72 hour Antibiotic History No qualifying data available... ?? Results ? BMP, Mg, and Phos (Last Within 24hrs) Sodium: 137 mmol/L (04:22) Potassium:??3.2 mmol/L??Low (04:22) Chloride: 99 mmol/L (04:22) CO2:??37 mmol/L??High (04:22) BUN: 13 mg/dL (04:22) Creatinine: 1 mg/dL (04:22) Glucose Level:??137 mg/dL??High (04:22) Calcium: 9.4 mg/dL (04:22) Mg Lvl: 2.2 mg/dL (04:22) ? Cardiology Labs BNP:??505 pg/mL??Critical (01/13/23 04:22:00) Troponin TNIH: 18.8 ng/L (01/13/23 00:02:00) Troponin TNIH: 20.7 ng/L (01/12/23 21:08:00) Troponin TNIH: 21.5 ng/L (01/12/23 18:41:00) ? Electronically Signed By: Gabriel Silva MD On: 01.13.2023 19:49 NET C DEVELOPER History and physical note * Luca MODI, [facility]: MODIFY, PERFORM, MODIFY, MODIFY, MODIFY Event Display: History & Physical Authored Date: Chief Complaint/Reason for Consultation Chest pain and shortness of breath. Elevated BNP History of Present Illness The patient is a 77 y/o M with h/o CHF, COPD, DM, HTN, HLD ??presents with difficulty breathing. ? The onset was few weeks. ??The course/duration of symptoms is constant and fluctuating in intensity. ??Degree at onset mild. ??Degree at present severe. ??The Exacerbating factors is lying flat. ??The Relieving factors is sitting upright. ? Risk factors consist of congestive heart failure, diabetes mellitus, chronic obstructive pulmonary disease and AF on eliquis, cardioverted recently to NSR. ??Prior episodes: occasional. ??Therapy today: see home meds. ??Additional history: pt seen by Dr Yanes today, labs done, BNP elevated, recommended to report to ED.? Review of Systems Constitutional symptoms: ??No fever, no chills, no sweats. ?? Skin symptoms: ??No jaundice, ?? Eye symptoms: ??No recent vision problems, no icterus, no blurred vision. ?? ENMT symptoms: ??No sore throat, ?? Respiratory symptoms: ??Shortness of breath, orthopnea. ?? Cardiovascular symptoms: ??No chest pain, no diaphoresis. ?? Gastrointestinal symptoms: ??Constipation, Denies black or bloody stools, No abdominal pain, ?? Genitourinary symptoms: ??No dysuria, ?? Musculoskeletal symptoms: ??No back pain, ?? Neurologic symptoms: ??No headache, no dizziness. ?? Objective Vital Signs (24 hrs) Last Charted?? Minimum?? Maximum?? Temp?? 36.8?? 01/12/2023 18:00?? 36.8?? 01/12/2023 18:00 ?? 36.8?? 01/12/2023 18:00? Pain Scores (Last Within 24hrs) Numeric Pain Scale: 0 = No pain (18:18) ? I&O 24 Hour Total? No Data Available ? Physical Exam General: ??Alert, moderate distress, ill-appearing. ?? Skin: ??Warm, dry, pale. ?? Head: ??Normocephalic.?? Neck: ??Supple, no tenderness. ?? Eye: ??Pupils are equal, round and reactive to light.?? Ears, nose, mouth and throat: ??Oral mucosa moist.?? Cardiovascular: ??Regular rate and rhythm, No murmur, Edema: Bilateral, lower extremity, 2+. ?? Respiratory: ??Breath sounds: Right, base(s), rales present.?? Gastrointestinal: ??Soft, Nontender, Non distended, Normal bowel sounds, No organomegaly. ?? Back: ??Nontender, Normal range of motion. ?? Musculoskeletal: ??Normal ROM, normal strength, no tenderness. ?? Neurological: ??Alert and oriented to person, place, time, and situation, No focal neurological deficit observed, CN II-XII intact, normal sensory observed, normal motor observed, normal speech observed. ?? Electrocardiogram: ??Time 01/12/2023 18:19:00, rate 99, normal sinus rhythm, EP Interp, Ectopy Occasional, premature ventricular contractions, QRS interval Right bundle branch block. ?? Assessment/Plan Acute cardiac pulmonary edema - [id number]-OT I50.1, Medical?? Acute combined systolic and diastolic CHF, NYHA class 3 - [id number] I50.41, Medical?? diabetes hypertension COPD on home O2 ? PLAN The patient is a 77 y/o M with h/o CHF, COPD, DM, HTN, HLD ??presents with difficulty breathing, admitted with exacerbation of CHF ? Acute on chronic congestive heart failure with reduced ejection fraction: Volume overloaded BNP 630 IV diuretics. ?? Monitor fluid balance and adjust diuretics as needed. Monitor creatinine electrolytes. Optimize medical therapy as tolerated. ?? h/o Atrial fibrillation continue home meds- amiodarone, aspirin, apixaban, metoprolol ? CAD:Previous history of PCI. ??Stable. ??No evidence of ischemia this time. ?? Negative troponins. ?? EKG with no ischemic changes.?? Optimize medical therapy ? COPD: On chronic home O2 due to hypoxemia. ?? Currently stable.? Diabetes: add SSI diabetic diet ?? Hyperlipidemia: on Statin ?? Hypertension: Monitor and adjust therapy as needed. pt is on metoprolol ?? supportive care further as per clinical course ? Total time spent is?? 50 mins including review of tests, performing history and examination, counseling/educating the patient, ordering meds and tests, documenting clinical information, independentlyinterpreting results and care coordination ? Discussed with the patient and nurse Day team of [facility] will follow until discharge ? Histories Allergies Allergies ?(Active and Proposed Allergies Only) codeine? (Severity: Unknown severity, Onset: Unknown) ?Reactions: hives penicillin? (Severity: Unknown severity, Onset: Unknown) ?Reactions: hives ? Past Medical History Active Problems(5) CHF (congestive heart failure) COPD (chronic obstructive pulmonary disease) Diabetes HTN (hypertension) Hyperlipemia ? Past Surgical History Cholecystectomy;: 2020 Appendectomy;: 03/20/64 inguinal hernia repair ? Social History Alcohol Details:??Current, 1-2 times per year Substance Abuse Details:??Denies Tobacco Details:??Denies ? Family History No Family History documented. ? Medications Home Medications amiodarone (amiodarone 200 mg oral tablet)?200?Milligram?1?Tabs?By Mouth?Daily apixaban (apixaban 5 mg oral tablet)?5?Milligram?1?Tabs?By Mouth?2 Times a Day ascorbic acid (Vitamin C 500 mg oral capsule)?500?Milligram?1?Capsules?By Mouth?2Times a Day aspirin (aspirin 81 mg oral tablet, chewable)?81?Milligram?1?Tabs?Chewed?Daily atorvastatin (atorvastatin 40 mg oral tablet)?40?Milligram?1?Tabs?By Mouth?at Bedtime cyanocobalamin (cyanocobalamin 1000 mcg/mL injectable solution)?1,000?Microgram?Intramuscular?Every Sunday cyclobenzaprine (cyclobenzaprine 10 mg oral tablet)?10?Milligram?1?Tabs?By Mouth?at Bedtime docusate (docusate sodium 100 mg oral tablet)?100?Milligram?1?Tabs?By Mouth?2 Times a Day finasteride (Proscar 5 mg oral tablet)?5?Milligram?1?Tabs?By Mouth?Daily FLUoxetine (PROzac 20 mg oral capsule)?20?Milligram?1?Capsules?By Mouth?Daily furosemide (Lasix 80 mg oral tablet)?40?Milligram?0.5?Tabs?By Mouth?2 Times a Day levothyroxine (Synthroid 25 mcg (0.025 mg) oral tablet)?25?Microgram?1?Tabs?By Mouth?Daily loratadine (loratadine 10 mg oral tablet)?10?Milligram?1?Tabs?By Mouth?Daily metFORMIN (metFORMIN 500 mg oral tablet)?500?Milligram?1?Tabs?By Mouth?Daily?as needed?Blood Glucose (please specify)?for blood sugar over 200 metOLazone (metOLazone 5 mg oral tablet)?5?Milligram?1?Tabs?By Mouth?Daily metoprolol (Metoprolol Succinate ER 50 mg oral tablet, extended release)?50?Milligram?1?Tabs?By Mouth?at Bedtime multivitamin with minerals (Centrum Silver oral tablet)?1?Tabs?By Mouth?2 Times a Day pantoprazole (Protonix 20 mg oral enteric coated tablet)?20?Milligram?1?Tabs?By Mouth?Daily saw palmetto (saw palmetto 450 mg oral capsule)?450?Milligram?1?Each?By Mouth?2 Times a Day tamsulosin (Flomax 0.4 mg oral capsule)?0.4?Milligram?1?Capsules?By Mouth?2 Timesa Day ? Inpatient Medications Medications (6) Active SCHEDULED: (5) bumetanide 0.25 mg/mL ??Vial 4 mL (bumetanide) ??1 mg 4 mL, IV Push, Daily famotidine 20 mg Tab (Pepcid) ??20 mg 1 Tabs, Oral, BID Hypoglycemia Protocol Advisor ??Protocol, N/A, Daily insulin aspart NovoLOG 1 unit/ 0.01mL syringe (insulin aspart NovoLog correctional scale Low) ??sliding scale low, SubCutaneous, Before Meals and HS nitroglycerin 2% Top Oint 1 gm (Nitro-Bid) ??1 inch, Topical, q6H CONTINUOUS: (0) PRN: (1) ondansetron 4 mg/2 mL vial (Zofran) ??4 [...] booster(s) (12/17/22 14:34:00) ?? Results Recent Labs Blood Gases pH Arterial 7.449 (Normal)?? 01/12/2023 19:13 Art pCO2 45.3 mmHg (High)?? 01/12/2023 19:13 Art pO2 51.8 mmHg (Low)?? 01/12/2023 19:13 Art TempC,pH 7.449 (N/A)?? 01/12/2023 19:13 Art TempC,PCO2 45.3 mmHg (N/A)?? 01/12/2023 19:13 Art TempC,PO2 51.8 mmHg (N/A)?? 01/12/2023 19:13 Art HCO3 30.0 mmol/L (High)?? 01/12/2023 19:13 Art Base Excess 6.4 mmol/L (High)?? 01/12/2023 19:13 Art sO2 88 % (Low)?? 01/12/2023 19:13 Art tHB 13.1 gm/dL (Low)?? 01/12/2023 19:13 Art O2 Hb 87 % (Low)?? 01/12/2023 19:13 Art Carboxyhemoglobin 1.9 % (High)?? 01/12/2023 19:13 Art Methemoglobin -0.3 % (Low)?? 01/12/2023 19:13 POC Juan Antonio Test POS (N/A)?? 01/12/2023 19:13 POC Del Sys ROOM AIR (N/A)?? 01/12/2023 19:13 POC FIO2 21 % (N/A)?? 01/12/2023 19:13 POC Pt Temp 37.0 DegC (N/A)?? 01/12/2023 19:13 POC Site Radial Left (N/A)?? 01/12/2023 19:13 POC Sample Arterial (N/A)?? 01/12/2023 19:13 POC Total RR 20 br/min (N/A)?? 01/12/2023 19:13 POC Vent Mode NO VENT (N/A)?? 01/12/2023 19:13 Art Hct 40.3 % (Normal)?? 01/12/2023 19:13 Art Lactate 1.3 mmol/L (Normal)?? 01/12/2023 19:13 Line [place] [id number] (N/A)?? 01/12/2023 19:13 ?? Cardiac BNP 630.0 pg/mL (Critical)?? 01/12/2023 16:17 ?? General Chemistry Glucose Level 99 mg/dL (Normal)?? 01/12/2023 16:17 Arterial Glucose 125 mg/dL (High)?? 01/12/2023 19:13 Sodium 139 mmol/L (Normal)?? 01/12/2023 16:17 Art Na 142 mmol/L (Normal)?? 01/12/2023 19:13 Potassium 3.7 mmol/L (Normal)?? 01/12/2023 16:17 Art K 3.7 mmol/L (Normal)?? 01/12/2023 19:13 Chloride 104 mmol/L (Normal)?? 01/12/2023 16:17 CO2 33 mmol/L (High)?? 01/12/2023 16:17 Anion Gap 2 mcmol/L (Low)?? 01/12/2023 16:17 BUN 11 mg/dL (Normal)?? 01/12/2023 16:17 Creatinine 0.9 mg/dL (Normal)?? 01/12/2023 16:17 BUN/Creat Ratio 12.2 Ratio (Normal)?? 01/12/2023 16:17 Calcium 9.3 mg/dL (Normal)?? 01/12/2023 16:17 Art iCa 1.2 mmol/L (Normal)?? 01/12/2023 19:13 Albumin. Level 3.6 gm/dL (Normal)?? 01/12/2023 16:17 TP 7.0 gm/dL (Normal)?? 01/12/2023 16:17 T Bili 0.80 mg/dL (Normal)?? 01/12/2023 16:17 Alk Phos 91 Intl_units/L (Normal)?? 01/12/2023 16:17 AST 15 Intl_units/L (Normal)?? 01/12/2023 16:17 ALT 25 Intl_units/L (Normal)?? 01/12/2023 16:17 eGFR Cr 87 mL/min/1.73m2 (N/A)?? 01/12/2023 16:17 eGFR Pediatric Not Reported mL/min/1.73m2 (N/A)?? 01/12/2023 16:17 ?? General Hematology WBC 7.10 x10e3/mcL (Normal)?? 01/12/2023 16:17 RBC 4.08 x10e6/mcL (Low)?? 01/12/2023 16:17 Hgb 13.30 gm/dL (Low)?? 01/12/2023 16:17 Hct 39.90 % (Low)?? 01/12/2023 16:17 MCV 97.7 Femtoliters (Normal)?? 01/12/2023 16:17 MCH 32.60 pg (Normal)?? 01/12/2023 16:17 MCHC 33.40 gm/dL (Normal)?? 01/12/2023 16:17 RDW-CV 14.40 % (Normal)?? 01/12/2023 16:17 Plt 213 x10e3/mcL (Normal)?? 01/12/2023 16:17 MPV 7.70 Femtoliters (Normal)?? 01/12/2023 16:17 NRBC % 0 % (Normal)?? 01/12/2023 16:17 Neut % Auto 63.2 % (Normal)?? 01/12/2023 16:17 Lymph % Auto 23.3 % (Low)?? 01/12/2023 16:17 Payne % Auto 10.2 % (Normal)?? 01/12/2023 16:17 Eos % Auto 2.9 % (Normal)?? 01/12/2023 16:17 Baso % Auto 0.4 % (Normal)?? 01/12/2023 16:17 Neut # Auto 4.5 x10e3/mcL (Normal)?? 01/12/2023 16:17 Lymph # Auto 1.7 x10e3/mcL (Normal)?? 01/12/2023 16:17 Payne # Auto 0.7 x10e3/mcL (Normal)?? 01/12/2023 16:17 Eos # Auto 0.2 x10e3/mcL (Normal)?? 01/12/2023 16:17 Baso # Auto 0.0 x10e3/mcL (Normal)?? 01/12/2023 16:17 ? Cardiology Labs ? Electronically Signed By: Yandel Segovia MD On: 01.13.2023 04:17 NET C DEVELOPER Patient Care team information Care Team Personnel Name: Miryam boggs [address] [place] [address] Member Role: Primary Care Physician Address: Address: [address] [address] [facility] Name: Ti Huertas MD Position: ED Physician Member Role: ED Physician Address: Address: [address] [place] [id number] [facility] Name: Paramjit Garza RN Position: ED Nurse Member Role: ED Nurse Name: Jeanne Johnson RN Position: ED Nurse Member Role: ED Nurse Care Team Related Persons Name: DULCE CHANG Address: Home [address] [facility] [address] [phone] [place]
--- OUTSIDE RECORDS SUMMARY | 2024-05-21 20:39 | XMS_ITS | Continuity of Care Document ---
Author Name Unknown Organization [facility] Heart Address [address] [place] [address]- Care Team Providers Care Naturopath Name Role Phone [facility] Primary Care Physician [phone] Encounter [facility] [id number] Date(s): 03/19/24 - 03/21/24 [facility] [address] [facility] [id number] [place] [address] [facility] Encounter Diagnosis Moderate risk chest pain(Discharge Diagnosis) - 03/19/24 Moderate risk chest pain(Discharge Diagnosis) - 03/19/24 CAD (coronary artery disease)(Discharge Diagnosis) - 03/19/24 Discharge Disposition: Routine to Home Attending Physician: Margi Plummer MD Admitting Physician: Yandel Segovia MD Referring Physician: No referring, Doctor Reason for Visit MODERATE RISK CHEST PAIN Allergies, Adverse Reactions, Alerts Substance Criticality Severity Reaction Reaction Severity Status codeine hives Active penicillin hives Active adenosine 1 Other (See Comments) Active donepezil 2 Unknown Active metFORMIN 3 Unknown Active 1Outside Source Comment: bronchospasm 2Outside Source Comment: Other reaction(s): mild per pcp chart 3Outside Source Comment: Other reaction(s): per pcp chart--moderate Assessment and Plan Extracted from: Title:Neurology Author:Titus Diaz MD Date:03/21/24 78-year-old male with a past medical history of ORLIN on CPAP, DM,??atrial fibrillation on chronic anticoagulation, coronary artery disease, CHF presented with??chest pain,??episode of dizziness. ?? 1. ??Episode of dizziness/near syncope/syncope.?? The patient is noticed to have a low blood pressure.?? After??morning dose of??blood pressure pill, blood pressure??went down from 130 to 105 systolic.?? The patient is also noticed to be orthostatic hypotensive. ??Recommend to adjust dose of??blood pressure medications,??use??compression socks. - less dizzy. BP improving ?? 2.?? Chest pain. ??As per cardiology ?? 3.?? ?Autonomic dysfunction. EMG/NCV as outpatient ?? 4.?? Hypertension keep blood pressure between??1 20-1 40 systolic if possible ?? 5.?? A-fib??continue Eliquis ?? 6.?? Obstructive sleep apnea coronary artery disease CHF diabetes ?? OK to discharge from neuro standpoing. ?? Discharge Planning:?Discharge Planning:?Discharge To, Anticipated:??Home with family care ? Medications amiodarone (amiodarone 200 m g oral tablet) Status: Ordered Start Date: 03/21/24 0.5 Tabs By Mouth Daily. apixaban (apixaban 5 mg oral tablet) Status: Ordered Start Date: 03/21/24 1 Tabs By Mouth 2 Times a Day. aspirin (aspirin 81 mg oral tablet, chewable) Status: Ordered Start Date: 03/21/24 1 Tabs By Mouth Daily. atorvastatin (atorvastatin 4 0 mg oral tablet) Status: Ordered Start Date: 03/21/24 1 Tabs By Mouth at Bedtime. cholecalciferol (cholecalcif mundo 25 mcg (1000 intl units) oral tablet) Status: Ordered Start Date: 03/21/24 2 Tabs By Mouth Daily. dapagliflozin (dapagliflozin 10 mg oral tablet) Status: Ordered Start Date: 03/21/24 1 Tabs By Mouth Daily. Refills: 0. Ordering provider: Kavitha MODI, Margi YOUNGBLOOD [facility] [address] [facility] [address] [place] [phone] finasteride (finasteride 5 m g oral tablet) Status: Ordered Start Date: 03/21/24 1 Tabs By Mouth Daily. FLUoxetine (FLUoxetine 20 mg oral capsule) Status: Ordered Start Date: 03/21/24 1 Capsules By Mouth Daily. furosemide (furosemide 20 mg oral tablet) Status: Ordered Start Date: 03/21/24 3 Tabs By Mouth Daily. Refills: 0. Ordering provider: Margi Plummer MD [facility] [address] [phone] levothyroxine (levothyroxine 25 mcg (0.025 mg) oral tablet) Status: Ordered Start Date: 03/21/24 1 Tabs By Mouth Daily. loratadine (loratadine 10 mg oral tablet) Status: Ordered Start Date: 03/21/24 1 Tabs By Mouth Daily. metoprolol (Metoprolol Succi abby ER 25 mg oral tablet, extended release) Status: Ordered Start Date: 03/21/24 Stop Date: 04/20/24 1 Tabs By Mouth Daily for 30 Days. Refills: 0. Ordering provider: Margi Plummer MD [facility] [address] [phone] pantoprazole (pantoprazole 2 0 mg oral delayed release tablet) Status: Ordered Start Date: 03/19/24 1 Tabs By Mouth Daily. rOPINIRole (rOPINIRole 1 mg oral tablet) Status: Ordered Start Date: 03/19/24 1 Tabs By Mouth 3 Times a Day. sacubitril-valsartan (sacubi tril-valsartan 24 mg-26 mg oral tablet) Status: Ordered Start Date: 01/05/24 0.5 Tabs Oral BID Hold for SBP < 100. spironolactone (spironolacto ne 25 mg oral tablet) Status: Ordered Start Date: 03/21/24 1 Tabs By Mouth Daily. Refills: 0. Ordering provider: Margi Plummer MD [facility] [address] [phone] tamsulosin (tamsulosin 0.4 m g oral capsule) Status: Ordered Start Date: 03/19/24 1 Capsules By Mouth Daily. Problem List Condition Confirmation Course Effective Dates [...] Collection of venous blood b y venipuncture 03/21/24 Completed Collection of venous blood b y venipuncture 03/19/24 Completed Insertion Defibrillator (Lat erality NA) 1 [...] EF 56% Results Laboratory List Name Date Auto Diff 03/21/24 B Type Natriuretic Peptide (BNP) 03/21/24 Basic Metabolic Panel (BMP) 03/21/24 CBC with Diff 03/21/24 Folate 03/21/24 Hgb A1C 3 03/21/24 Vitamin B12 Level (B12 Level) 03/21/24 B Type Natriuretic Peptide (BNP) 03/19/24 Troponin +1hr 03/19/24 Auto Diff 03/19/24 CBC with Diff 03/19/24 Comprehensive Metabolic Panel (CMP) Magnesium Level 03/19/24 PT INR 03/19/24 Troponin (TNIH) (Troponin ED (STAT, +1hr , +3hr)) 03/19/24 aPTT 03/19/24 03/21/24 Test Result Reference Range Specimen Source [facility] WBC 6.60 x10e3/mcL (Normal is 4.30-11.00 x10e3/mcL) Blood [facility] RBC 4.00 x10e6/mcL (Normal is 4.60- 6.20 x10e6/mcL) Blood [facility] Hgb 13.60 gm/dL (Normal is 14.00-18.00 gm/dL) Blood [facility] Hct 39.90 % (Normal is 40.00-54.00 %) Blood [facility] MCV 99.6 Femtoliters (Normal is 80.0-100.0 Femtoliters) Blood [facility] MCH 33.90 pg (Normal is 26.00-33.00 pg) Blood [facility] MCHC 34.00 gm/dL (Normal is 31.00-36.00 gm/dL) Blood [facility] RDW-SD 46.80 Femtoliters (Normal is 36.50-45.90 Femtoliters) Blood [facility] RDW-CV 13.40 % (Normal is 11.00-17.00 %) Blood [facility] Plt 181 x10e3/mcL (Normal is 150-3 75 x10e3/mcL) Blood [facility] MPV 7.50 Femtoliters (Normal is 7.40-11.40 Femtoliters) Blood [facility] Neut % Auto 59.1 % (Normal is 40.0- 70.0 %) Blood [facility] Lymph % Auto 27.1 % (Normal is 25.0- 40.0 %) Blood [facility] Otero % Auto 10.0 % (Normal is 0.0-1 4.0 %) Blood [facility] Eos % Auto 3.3 % (Normal is 0.0-6 .0 %) Blood [facility] Baso % Auto 0.5 % (Normal is 0.0-2 .0 %) Blood [facility] Neut # Auto 3.9 x10e3/mcL (Normal is 2.0-1 1.0 x10e3/mcL) Blood [facility] Lymph # Auto 1.8 x10e3/mcL (Normal is 1.3-4 .4 x10e3/mcL) Blood [facility] Otero # Auto 0.7 x10e3/mcL (Normal is 0.0-1 .4 x10e3/mcL) Blood [facility] Eos # Auto 0.2 x10e3/mcL (Normal is 0.0-0 .5 x10e3/mcL) Blood [facility] Baso # Auto 0.0 x10e3/mcL (Normal is 0.0-0 .2 x10e3/mcL) Blood [facility] Glucose Level 130 mg/dL (Normal is 74-10 6 mg/dL) Blood [facility] Sodium 136 mmol/L (Normal is 136-1 45 mmol/L) Blood [facility] Potassium 3.6 mmol/L (Normal is 3.5-5 .1 mmol/L) Blood [facility] Chloride 101 mmol/L (Normal is 98-10 7 mmol/L) Blood [facility] CO2 33 mmol/L (Normal is 21-32 mmol/L) Blood [facility] Anion Gap 2 mmol/L (Normal is 3-11 mmol/L) Blood [facility] BUN 18 mg/dL (Normal is 7-18 mg/dL) Blood [facility] Creatinine 1.2 mg/dL (Normal is 0.6-1 .3 mg/dL) Blood [facility] BUN/Creat Ratio 15.00 Ratio (Normal is 6.00-22.00 Ratio) Blood [facility] Calcium 9.6 mg/dL (Normal is 8.5-1 0.0 mg/dL) Blood [facility] eGFR Cr 62 mL/min/1.73m2 Blood eGFR Pediatric Not Reported mL/min/1.73m2 1 (Normal is >=75 mL/min/1.73m2) Blood Hgb A1C 6.40 % (Normal is 4.20- 6.30 %) Blood [facility] Est Avg Glucose 137 mg/dL (Normal is 70-13 0 mg/dL) Blood [facility] Folate Lvl 45.6 ng/mL 2 (Normal is 3.1-1 7.5 ng/mL) Blood [facility] Vitamin B12 Lvl 1942 pg/mL (Normal is 193-9 86 pg/mL) Blood [facility] BNP 34.7 pg/mL (Normal is 0.0-1 00.0 pg/mL) Blood [facility] 03/19/24 Test Result Reference Range Specimen Source [facility] WBC 7.30 x10e3/mcL (Normal is 4.30-11.00 x10e3/mcL) Blood [facility] RBC 4.00 x10e6/mcL (Normal is 4.60-6.20 x10e6/mcL) Blood [facility] Hgb 13.60 gm/dL (Normal is 14.00-18.00 gm/dL) Blood [facility] Hct 40.00 % (Normal is 40.00-54.00 %) Blood [facility] MCV 100.1 Femtoliters (Normal is 80.0-100.0 Femtoliters) Blood [facility] MCH 34.10 pg (Normal is 26.00-33.00 pg) Blood [facility] MCHC 34.10 gm/dL (Normal is 31.00-36.00 gm/dL) Blood [facility] RDW-SD 48.60 Femtoliters (Normal is 36.50-45.90 Femtoliters) Blood [facility] RDW-CV 13.60 % (Normal is 11.00-17.00 %) Blood [facility] Plt 212 x10e3/mcL (Normal is 150-3 75 x10e3/mcL) Blood [facility] MPV 8.00 Femtoliters (Normal is 7.40-11.40 Femtoliters) Blood [facility] Neut % Auto 58.2 % (Normal is 40.0-70.0 %) Blood [facility] Lymph % Auto 28.1 % (Normal is 25.0-40.0 %) Blood [facility] Otero % Auto 10.0 % (Normal is 0.0-14.0 %) Blood [facility] Eos % Auto 3.0 % (Normal is 0.0-6 .0 %) Blood [facility] Baso % Auto 0.7 % (Normal is 0.0-2 .0 %) Blood [facility] Neut # Auto 4.2 x10e3/mcL (Normal is 2.0-11.0 x10e3/mcL) Blood [facility] Lymph # Auto 2.0 x10e3/mcL (Normal is 1.3-4 .4 x10e3/mcL) Blood [facility] Otero # Auto 0.7 x10e3/mcL (Normal is 0.0-1 .4 x10e3/mcL) Blood [facility] Eos # Auto 0.2 x10e3/mcL (Normal is 0.0-0 .5 x10e3/mcL) Blood [facility] Baso # Auto 0.1 x10e3/mcL (Normal is 0.0-0 .2 x10e3/mcL) Blood [facility] PT 10.7 Seconds (Normal is 10.1-12.8 Seconds) Blood [facility] INR 0.94 (Normal is 0.91-1.20) Blood [facility] aPTT 29.6 Seconds (Normal is 21.9-31.0 Seconds) Blood [facility] Glucose Level 98 mg/dL (Normal is 74-10 6 mg/dL) Blood [facility] Sodium 136 mmol/L (Normal is 136-1 45 mmol/L) Blood [facility] Potassium 4.0 mmol/L (Normal is 3.5-5 .1 mmol/L) Blood [facility] Chloride 103 mmol/L (Normal is 98-10 7 mmol/L) Blood [facility] CO2 30 mmol/L (Normal is 21-32 mmol/L) Blood [facility] Anion Gap 3 mmol/L (Normal is 3-11 mmol/L) Blood [facility] BUN 18 mg/dL (Normal is 7-18 mg/dL) Blood [facility] Creatinine 1.2 mg/dL (Normal is 0.6-1 .3 mg/dL) Blood [facility] BUN/Creat Ratio 15.00 Ratio (Normal is 6.00-22.00 Ratio) Blood [facility] Calcium 9.7 mg/dL (Normal is 8.5-10.0 mg/dL) Blood [facility] Albumin. Level 3.9 gm/dL (Normal is 3.4-5 .0 gm/dL) Blood [facility] TP 7.1 gm/dL (Normal is 6.4-8 .2 gm/dL) Blood [facility] T Bili 1.00 mg/dL (Normal is 0.20-1.00 mg/dL) Blood [facility] Alk Phos 86 Intl_units/L (Normal is 45-11 7 Intl_units/L) Blood [facility] AST 19 Intl_units/L (Normal is 15-37 Intl_units/L) Blood [facility] ALT 27 Intl_units/L (Normal is 12-78 Intl_units/L) Blood [facility] Mg Lvl 2.5 mg/dL (Normal is 1.8-2 .4 mg/dL) Blood [facility] Estimated Creatinine Clearance 46.67 mL/min 3 eGFR Cr 62 mL/min/1.73m2 4 Blood eGFR Pediatric Not Reported mL/min/1.73m2 5 (Normal is >=75 mL/min/1.73m2) Blood BNP 46.5 pg/mL (Normal is 0.0-100.0 pg/mL) Blood [facility] Troponin TNIH 6.9 ng/L 6 (Normal is 0.0-78.5 ng/L) Blood [facility] Troponin TNIH 8.0 ng/L 7 (Normal is 0.0-78.5 ng/L) Blood [facility] 1Result Comment: Not reported for adult patients ( > 18 years old ). 2Interpretive Data: This test may exhibit interference when sample is collected from a person who isconsuming a supplement with a high dose of biotin (also termed as vitamin B7 or B8, vitamin H, or coenzyme R). It is recommended to ask all patients who may be indicated for this test about biotin supplementation. Patients should be cautioned to stop biotin consumption at least 72 hours prior to the collection of a sample. 3Interpretive Data: Falsely low results can be observed in patients with recent ingestion of high dose biotin supplements exceeding 20 mg per day. 4Result Comment: Calculated using method: Cockroft-Gault 5Result Comment: No previous creatinine in the last 72 hours; eGFR may not be reflective of the patient???s kidney function if creatinine is rapidly changing. 6Result Comment: Not reported for adult patients ( > 18 years old ). 7Interpretive Data: Falsely low results can be observed in patients with recent ingestion of high dose biotin supplements exceeding 20 mg per day. Laboratory Information [facility] CLIA Number: [id number] [address] Lab CLIA Number: [id number] [address] Lab CLIA Number: [id number] [facility] [address] [place], [place] [address] CLIA Number: [id number] [facility] [address] [place] [id number] [place] [address] Vital Signs 03/21/24 Temperature (Route Not Specified) 36.6 DegC (Normal is 36.5-37.3 DegC) Peripheral Pulse Rate 60 bpm (Normal is 60-100 bpm) Respiratory Rate 17 br/min (Normal is 12-2 0 br/min) Blood Pressure 131/69mmHg (Normal is 90-13 5/60-80 mmHg) Blood Pressure Supine 116/64mmHg Blood Pressure Sitting 111/65mmHg Blood Pressure Standing 112/64mmHg 03/19/24 Height 170.18 cm Weight 135.17 kg Social History Social History Type Response Tobacco Denies Smoking Status Former smoker Sex Male Hospital Discharge Instructions Patient Education 03/21/2024 15:10:30 Symptoms of a Heart Attack Symptoms of a Heart Attack A heart attack is also known as acute myocardial infarction, or AMI. It's an urgent message from your heart that it???s starved for oxygen. When a clot blocks a blood vessel feeding the heart (coronary artery), oxygen-rich blood can???t reach a part or all of your heart. Then tissues of the heart muscle start to . This causes symptoms of a heart attack. The sooner you get to the hospital, the sooner treatment can start to help save your life and your heart. We understand that gender is a spectrum. We may use gendered terms to talk about anatomy and healthrisk. Please use this sheet in a way that works best for you and your provider as you talk about your care. Warning signs of a heart attack ???Chest discomfort. With most heart attacks, there's discomfort in the center of the chest. This can last more than a few minutes. Or it can go away and come back. It can feel like uncomfortable pressure, squeezing, burning, fullness, tightness, or pain. It's often described as something heavy sitting on your chest. ???Discomfort in other parts of the upper body. Symptoms can include pain or discomfort in 1 or both arms, shoulders, the back, neck, jaw, or stomach. ???Shortness of breath. This may occur with or without chest discomfort. ???Other signs. These may include breaking out in a cold sweat, upset stomach (nausea), or feeling lightheaded. For women Like men, women most often have chest pain or discomfort as a heart attack symptom. But women are alittle more likely than men to have some of the less common symptoms. These include: ???Shortness of breath ???Abnormal tiredness ???Lightheadedness ???Heartburn ???Nausea and vomiting ???Back pain ???Jaw pain ?? For older adults Older adults may also have different symptoms. These include: ???Fainting (syncope) ???Weakness ???Confusion (delirium) These symptoms should be looked at right away. Ignoring them can lead to critical illness or . For people with diabetes If you have diabetes, high blood sugar can damage nerves in your body over time. This may keep you from feeling pain caused by a heart problem, leading to a ???silent?? heart problem. If you don???tfeel symptoms, you're less able to get treatment right away. Talk with your healthcare provider about how to lower your risk for silent heart problems. Call 911 Don???t be afraid to call 911, even if you???re not sure you're having a heart attack. ??If you don???t know the cause of your symptoms, assume it???s a heart attack. Play it safe and call 911 right away. Don'tdrive yourself to the emergency room (ER). If you think someone else is having a heart attack, call 911 right away instead of driving them to the ER. After you call 911, they'll tell you what to do. The 911dispatcher may tell you to give the person aspirin while waiting for help to arrive. If the dispatcher doesn???t tell you to do this, don't give the person aspirin. Aspirin can be dangerous in certain cases. When you've had a past heart attack People who've had 1 heart attack are at risk of having another. Your provider may prescribe medicine such as nitroglycerin to take for chest pain. You may also need medicine to lower your heart rate and blood pressure. This is to prevent angina and another heart attack. Remember to take any medicines your provider has given as directed. Don't stop these medicines without talking with them first. ?? [id number] [employer]. All rights reserved. This information is not intended as a substitute for professional medical care. Always follow your healthcare professional's instructions. 03/21/2024 15:10:27 Recognizing a Heart Attack or Angina Recognizing a Heart Attack or Angina If you have risk factors for heart problems, you should always watch for signs of angina or a heartattack. If you have a sudden heart problem, getting treatment right away could save your life. Risk factors for a heart attack include: ???Being older ???High cholesterol ???High blood pressure ???Having an immediate family member such as a brother, sister, or parent who had a heart attack before age 50 ???Diabetes ???Smoking ???Being overweight ???Smoking or using stimulants such as cocaine or amphetamine ???High stress There are other risk factors, including eating a high-fat diet and not getting much exercise. Understanding angina and heart attack ???Angina??is an uncomfortable burning feeling, tightness, or pressure in the chest, back, neck, throat, or jaw. It can be painful. It means not enough blood is getting to the heart muscle. This is usually from a blocked artery in the heart. Angina is a sign??that you may be having, or are about tohave, a??heart attack. You need to call 911 right away. ???A heart attack is also known as acute myocardial infarction (AMI). It's what happens when blood and oxygen can't get to part of the heart??muscle. That part of the heart muscle is damaged and starts to . If enough of the heart is affected, it won't be able beat correctly. This will severely limit its ability to send blood to the brain and the rest of the??body. It may cause . It's vital to get help as soon as possible for a heart attack. We understand that gender is a spectrum. We may use gendered terms to talk about anatomy and healthrisk. Please use this sheet in a way that works best for you and your provider as you talk about your care. Stable angina versus unstable angina Stable angina is??also known as chronic angina. It has a typical pattern. It happens when you exertyourself physically or feel a strong emotion. Nitroglycerin, rest, or both, will easily ease stableangina symptoms. Stable angina symptoms will most likely feel the same??each time you have them. It's important to discuss these symptoms with your healthcare provider. They can be a warning sign of a future heart attack. Unstable angina causes unexpected or unpredictable symptoms, often when you're at rest. Unstable angina is a medical emergency. Angina is also considered unstable if resting and nitroglycerin don't ease symptoms. It's also unstable if symptoms are getting worse, happening more often, or??lasting longer. These symptoms may mean you have??a severe blockage or a spasm of a heart artery. Unstable angina is commonly a sign of an active heart attack. Remember the following tips: ???Stable angina symptoms should go away with rest or medicine. If they don???t go away, call 911! ???Stable angina symptoms last for only a few minutes. If they last longer than that, or if they goaway and come back, you may be having a heart attack. Call 911! ???If you have shortness of breath, cold sweat, upset stomach (nausea), or lightheadedness, call 911! For??angina that shows up for the first time, there is only 1 response: ???Call 911! You should never diagnose angina by yourself. If these symptoms are new, or worse than normal, call 911! Warning signs of a heart attack If you have symptoms that you can???t explain, call 911 right away[address]'t drive yourself to the emergency room (ER). These are warning signs of a possible heart attack: ???Chest discomfort.??Most heart attacks involve discomfort in the center of the chest that lasts more than a few minutes, or that goes away and comes back. It can feel like uncomfortable pressure, squeezing, fullness, or pain. ???Discomfort in other parts of the upper body.??Symptoms can include pain or discomfort in 1 or both arms, the back, neck, jaw, or stomach. ???Shortness of breath,??with or without chest discomfort ???Other signs??may include breaking out in a cold sweat, nausea, or lightheadedness. If you think someone is having a heart attack, call 911 instead of driving the person to the ER. After you call 911, you'll be told what to do. The 911dispatcher may tell you to give the person aspirin while waiting for help to arrive. If the dispatcher doesn???t tell you to do this, don???t give the person aspirin. Aspirin can be dangerous in certain cases. ???Note for women. Like men, women commonly have chest pain or discomfort as a heart attack symptom. But women are somewhat more likely than men to have less common symptoms. These include shortness of breath, abnormal tiredness, lightheadedness, heartburn, nausea and vomiting, back pain, or jaw pain. ???Note for older adults. Older people may also not have typical symptoms of a heart attack. They may have symptoms that??include fainting, weakness, or confusion. Ignoring these symptoms can lead tocritical illness or . You should get your symptoms checked out right away. ???If you've had a heart attack. People who have had 1 heart attack are at risk of having another. Your provider may prescribe medicine such as nitroglycerin to take when chest pain starts. Or you may need medicines to lower your heart rate and blood pressure. This is to prevent angina and another heart attack. Remember to take any medicines your provider has given. Don't stop taking them without speaking with your provider first. If you have diabetes: Silent heart problems Over time, high blood sugar can damage nerves in your body. This may keep you from feeling pain caused by a heart problem, leading to a ???silent?? heart problem. If you don???t feel symptoms, you're less able to know you may be having a heart attack and get treatment right away. Talk with your healthcare provider about how to lower your risk for silent heart problems. ?? 9165-4360 [employer]. All rights reserved. This information is not intended as a substitute for professional medical care. Always follow your healthcare professional's instructions. 03/21/2024 15:09:57 When to Use the Emergency Room (ER) When to Use the Emergency Room (ER) An emergency means you could if you don???t get care quickly. Or you could be hurt permanently (disabled). Read below to know when to use and not use an emergency room (ER). Dangers to your life Here are examples of emergencies. This is not a complete list. These need care right away: ???A hard time breathing (shortness of breath) ???Severe chest pain or pressure ???A fast or pounding heartbeat (palpitations) or fluttering in your heart ???Choking ???Severe bleeding ???Suddenly unable to move or speak?Suddenly not being able to feel an arm or a leg ???Blacking out (fainting)` ???Poisoning ???Coughing or vomiting blood ???Severe or lasting vomiting or diarrhea ???Severe belly (abdominal) pain ???Changes in mental status or confusion, trouble waking up, abnormal behavior ???Changes in vision ???Sudden onset of the worst headache of your life ???Suicidal thoughts ???Thoughts of harming another person Dangers of permanent injuries Here are other emergencies. These also need??care right away: ???Deep cuts or severe morales ???Broken bones, or sudden severe pain and swelling in a joint When it???s an emergency If you have an emergency, follow the steps below. 1. Call 911 ???Call 911 or your police emergency number. Having an ambulance transport you is the best option. Ambulance staff can begin treatment as soon as they arrive. ???Or go to the ER that's nearest to you. 2. Call your primary care provider after the emergency care ???Tell your healthcare provider about the emergency. Call within??24 hours of going to the ER. ???Have someone call for you if you can't make the call yourself. ???Go to your healthcare provider's office for any follow-up care. Do this , unless you are having symptoms that you have been told are an emergency and should be treated in the ER. When it???s??not an emergency If a problem is not an emergency, follow these steps: 1. Call your primary care provider ???Call your health insurance plan if you don???t know the name of your healthcare provider. ???Have someone call for you if you can't call. ???Visit an urgent care center or walk-in clinic if you don't have a primary care provider. 2. Follow instructions ???Your healthcare provider will tell you what you should do. ???You may be told to see your healthcare provider right away. You may be told to go to the ER. Or you may be told to go to an urgent care center. ???Follow your healthcare provider???s advice. ?? [employer]. All rights reserved. This information is not intended as a substitute for professional medical care. Always follow your healthcare professional's instructions. 03/21/2024 15:09:49 HEART DISEASE EDUCATION Heart Disease Education The heart beats 60 to 100 times??per minute, 24 hours a day. This equals almost 100,000 times a day. It pumps??blood with oxygen and nutrients to the tissues and organs of the body. But the heart is a muscle and needs its own supply of blood. Blood flow to the heart is supplied by the coronary arteries. Coronary artery disease (atherosclerosis) is a result of cholesterol, saturated fat, and calcium deposits (plaques) that build up inside the root. This causes inflammation within??the coronary arteries. These plaques narrow the artery and reduce blood flow to the heart muscle. The reduction in blood flow to the heart muscle decreases oxygen supply to the heart. If the narrowing is significant enough, the oxygen supply to 1 or more regions of the heart can be temporarily or permanently shut down. Sometimes the plaque can burst open (rupture), exposing the materials in the plaque to the bloodstream. This can lead to a blood clot suddenly forming on top of the plaque that interrupts blood flow to the heart muscle. This can cause??chest pain (angina) and possibly of heart tissue (heart attack). Types of chest pain Angina is the name for pain in the heart muscle. Angina is a warning sign of serious heart disease.When untreated, it can lead to a heart attack, also known as acute myocardial infarction, or AMI. Angina occurs when there is not enough blood and oxygen flowing to the heart for the amount of work it is doing. This most often happens during physical exertion, when the heart is working hardest. It is usually??relieved by rest or nitroglycerin. Angina may also occur after a large meal, when extra blood is sent to the digestive organs and less goes to the heart. In the case of advanced or unstable??heart disease, angina can occur at rest or awaken you from sleep. Angina usually lasts from a fewminutes up to 20 minutes or more. When treated early, the effects of angina can be reversed withoutpermanent damage to the heart. Angina is a serious condition and needs to be evaluated by a medicalprofessional immediately. There are 2 types of angina???stable and unstable: ???Stable angina. This often occurs with??a predictable??level of activity. Being stable, its character, severity, and occurrence don't change much over time. It often starts with activity and resolves with rest or taking your medicine as instructed by your healthcare provider. The symptoms usuallydon't last long. ???Unstable angina. This changes or gets worse over time. It is different from whatever you are used to. It may feel different or worse, begin without cause, occur with exercise or exertion, wake youup from sleep, and last longer. It may not respond in the same way as it does when you take your usual medicines for an attack. This type of angina can be a warning sign of an impending heart attack.? ? A heart attack is often the result of a blood clot that suddenly forms in a coronary artery that has been narrowed with plaque. When this occurs,??blood flow may be cut??off to a part of the heart muscle, causing??the cells??to . This weakens the pumping action of the heart, which affects the delivery of blood to all the other organs in the body, including the brain. If not treated immediately, this damage will become permanent. The earlier that treatment is given, the better chance that theheart muscle can be saved. The pain you feel with angina and a heart attack may have a similar quality. However, it is usuallydifferent in intensity and duration. Here are some typical descriptions of a heart attack: ???It's most often felt as a squeezing, crushing, pressure-like sensation in the center of the chest. ???It's sometimes described as ???something heavy sitting??on my chest.?It may feel more like a bad case of indigestion. ???The pain may spread from the chest to the arm, shoulder, throat, or jaw. ???Sometimes the pain isn't felt in the chest at all, but only in the arm, shoulder, throat, or jaw. ???There may also be nausea, vomiting, dizziness or light-headedness, sweating, and trouble breathing. ???Unexplained weakness You may not be able to tell the difference between bad angina and a heart attack at home. Get help if your symptoms are different than usual. Don't be in denial or just try to tough it out. Call 911 It's important to call 911. This is the fastest and safest way to get to the ER. Don't delay. You may be having a heart attack. The paramedics can also start treatment on the way to the hospital. This saves valuable time for your heart. Call 911 right away if any of these occur: ???The angina gets worse ???The angina continues after taking a nitroglycerin tablet or using nitroglycerin spray ???The angina stops and returns Other reasons to call 911 Don't wait until symptoms become severe to call 911. Other reasons to call 911 include: ???Trouble breathing ???Feeling lightheaded, faint, or dizzy ???Rapid heartbeat ???Slower than usual heart rate compared to your normal ???Angina with weakness, dizziness, fainting, heavy sweating, nausea, or vomiting ???Extreme drowsiness, confusion ???Weakness of an arm or leg or 1 side of the face ???Trouble with speech or vision After you call 911 After you call 911: ???Take a second nitroglycerin tablet or spray unless instructed otherwise. When repeating doses, sit down, if possible, because it can make you feel lightheaded or dizzy. ???Wait another 5 minutes. If the angina still doesn't go away, take a third nitroglycerin tablet or spray. Don't take more than 3 tablets or sprays within 15 minutes. ???Stay on the phone with 911 for more instructions. Note: Your healthcare provider may give you slightly different instructions than those above. If so, follow them carefully. When to get medical care Remember, the signs and symptoms of a heart attack are not always like they are on TV. Sometimes, they are not so obvious. You may only feel weak, or just not right. If it is not clear or if you haveany doubt, call for advice. ???Get help if there's a change in the type of pain, if it feels different, or if your symptoms aremild. ???Don't drive yourself. Have someone else drive you. If no one can drive, call 911. ???Don't delay. Fast diagnosis and treatment can prevent or limit the amount of heart damage duringa heart attack. ???Don't go to your healthcare provider's office or a clinic. They may not be able to provide all the testing and treatment required for this condition. ???If your provider has given you medicine to take when symptoms occur, take them. But don't delay getting help trying to locate medicines. What happens in the emergency room (ER) The emergency room (ER) is connected to your local emergency medical system (EMS) through 911. That's why during a cardiac emergency, calling 911 is the fastest way to get help. The goal of the ER isto quickly screen, evaluate, and treat people. Once you're there, an electrocardiogram (ECG) will be done. Often this will be done by paramedics who will send it to the hospital even before you get to the ER. Blood samples may be taken. These look for the presence of heart enzymes that leak from damaged heart cells and show if a heart attack isoccurring. You'll often be evaluated by a radiosonde specialist (refining supervisor) who decides the best course of action. In the case of severe angina or early heart attack, and depending on the circumstances, powerful clot-busting medicines can be used to dissolve blood clots in the coronary artery. In most cases, you may be taken to a cardiac catheterization lab for emergency angiography and coronary intervention. During this procedure, a long, thin, plastic tube (catheter) is put in an artery in your groin or arm. It's threaded through the blood vessel to the blockage. Blood flow will be evaluated. If a significant blockage is seen, a balloon and metal mesh coil (stent) may be inserted. This is done to open the artery and restore blood flow.?? Risk factors for heart disease Some risk factors for heart disease can be modified. Others can't be changed, such as your family history. Many risk factors work by either directly or indirectly damaging the blood vessels of the heart, or by increasing the risk of forming blood or cholesterol clots, which then clog up and block the arteries. Examples of physical lifestyle risk factors: ???Cigarette smoking or tobacco use ???High blood pressure ???High blood cholesterol ???Use of stimulant drugs such as cocaine, crack, and methamphetamine ???Eating high-fat, high-cholesterol foods ???Diabetes ???Overweight and obesity, which increases the risk for diabetes and high blood pressure ???Lack of regular physical activity?? Examples of emotional lifestyle factors: ???Chronic high stress levels release stress hormones. These raise blood pressure and cholesterol levels and make blood clot more easily. ???Held-in anger, hostile or cynical attitude ???Social and emotional isolation, lack of intimacy ???Loss of relationship ???Depression Other factors that increase the risk of heart attack that you can't control: ???Age. The older you get beyond 40, the greater your risk is of significant coronary artery disease. ???Gender. More men than women get heart disease. But after menopause, a woman's risk of heart disease dramatically increases. ???Family history. If your mother, father, brother, or sister has coronary artery disease, your risk of having it is higher than a person your age without this family history. What you can do to decrease your risk To reduce your risk for heart disease: ???Get regular checkups with your healthcare provider. ???Take your medicines for blood pressure, cholesterol, or diabetes as directed. ???Watch your diet. Eat a heart-healthy diet, choosing fresh foods, less salt, cholesterol, and fat. ???Stop smoking. Get help if needed. ???Stop using illegal drugs. ???Get regular exercise. ???Manage stress. ???Ask your provider if they advise behavioral counseling to promote a healthy diet and physical activity. ?? [id number] [employer]. All rights reserved. This information is not intended as a substitute for professional medical care. Always follow your healthcare professional's instructions. 03/21/2024 15:09:45 ANGINA, Stable Stable Angina The chest discomfort you have appears to be coming from your heart???a condition called angina. Angina is a pain in the heart due to poor blood flow to the heart muscle. This can occur when plaque builds up on the artery wall or a blood clot forms in one or more of the small blood vessels that deliver oxygen to the heart muscle. Plaque is a fatty material made up of cholesterol, calcium deposits,and other materials. Exercise, increased activity, emotional upset, or stress can trigger this pain. It can also occur in cold weather or in the morning when you are about to start your day. With proper treatment and lifestyle changes to reduce risk factors, most people with angina are able to have a full and active life. Angina is not a heart attack. But if angina pain is severe or prolonged, it's a sign of??an impending heart attack, also called acute myocardial infarction, or AMI. Your angina is under control at this time. So it's safe for you to go home. Follow up as instructed by your healthcare provider for any further tests and office visits. Home care ???Rest at home today and don't do any emotional or physically strenuous activity. ???Take medicine (usually nitroglycerin) for chest pain exactly as prescribed. Keep your nitroglycerin with you at all times. ???When taking nitroglycerin for angina, sit or lie down. The medicine may make you feel dizzy. oPlace 1 tablet under your tongue, or between your lip and gum, or between your cheek and gum. Let the tablet dissolve completely; don't chew or swallow the tablet. oIf you use a spray, then spray once on or??under your tongue. Don't inhale. Right after you use the spray, close your mouth. Wait a few seconds before you swallow. oAfter taking 1 tablet or spraying once, continue sitting or lying for 5 minutes. oIf the angina goes away completely, rest awhile and continue your normal routine. oIf angina persists, you may take 1 or 2 more doses if that was advised by your healthcare provider. Don't take more than 3 doses within a 15-minute period. Note: Your healthcare provider may give you slightly different instructions than those above. If so, follow them carefully. Prevention ???Learn how to take your own blood pressure. Keep a record of your results. Ask your healthcare provider which readings mean that you need medical attention. Reduce salt intake and follow lifestyle change instructions if you have high blood pressure (hypertension). ???Maintain a healthy weight. Get help to lose any extra pounds. Talk to your healthcare provider about a safe diet program. Sudden large weight losses can be dangerous. ???If you have diabetes, talk to your healthcare provider about healthy control of your blood sugar. ???Begin an exercise program. Ask your provider how to get started. You can benefit from simple activities such as walking or gardening and can gradually increase your exercise levels. Enrolling in cardiac rehabilitation is a good way to start an exercise program. ???Break the smoking habit. Enroll in a stop-smoking program to improve your chances of success. ???Get adequate rest. ???Stay away from stressful situations. Learn stress-management techniques. Follow-up care Follow??up with your healthcare provider, or as advised. If an X-ray was??done, you'll be told of any new findings that may affect your care. Call 911 This is the fastest and safest way to get to the nearest emergency department. The paramedics can also start treatment on the way to the hospital, saving valuable time for your heart. ???If??angina gets worse, continues, occurs at rest, or if it stops and returns, call 911 right away. Don't delay. You may be having a heart attack. Don't??wait until your symptoms are severe to call 911. Other reasons to call 911 besides chest pain include: ???Trouble breathing ???Feeling lightheaded, faint, or dizzy ???Rapid heartbeat ???Slower than usual heart rate compared to your normal ???Angina with weakness, dizziness, fainting, heavy sweating, nausea, or vomiting ???Extreme drowsiness, or confusion ???Weakness of an arm or leg or on one side of the face ???Trouble with speech or vision When to get medical advice Remember, the signs and symptoms of a heart attack are not always like they are on TV. Sometimes they aren't so obvious. You may only feel weak or just not right. If it's not clear or if you have any doubt, call for advice. Or call 911 to proceed to an emergency department. ???Get help if there's a change in the type of pain, or it feels different, or it starts happening at rest. ???Don't drive yourself. Have someone else drive, preferably by calling 911 to get an ambulance. ???If your healthcare provider has given you medicine to take when you have symptoms, take it. But don't delay getting??help. ???Don't delay. Fast diagnosis and treatment can prevent or limit the amount of heart damage duringa heart attack or stroke. ???Don't go to your provider's office or a clinic. They may not be able to provide all the testing and treatment you need. ?? [id number] [employer]. All rights reserved. This information is not intended as a substitute for professional medical care. Always follow your healthcare professional's instructions. Implantable Device List Procedure Provider Procedure Date Device Type Site Insertion Defibrillator Unknown 02/19/23 Unknown C hest Device Identifier Serial Number Lot or Batch Number Manufacturing Date Expiration Date Distinct Identification Code MRI Safety Implantable Status Assigning Authority Unknown N/A [id number] Unknown 09/18/24 Unknown Unknown Active Unknown Unknown [id number] N/A Unknown 01/31/24 Unknown Unknown Active Unknown Unknown [id number] [id number] N/A Unknown 09/07/24 Unknown Unknown Active Unknown Unknown [id number] 00V N/A Unknown 03/28/23 Unknown Unknown Active Unknown Unknown [id number] 12V N/A Unknown 06/07/23 Unknown Unknown Active Unknown Note * Ezekiel Pacheco MD: PERFORM, MODIFY, MODIFY Event Display: Consult - Cardiology Authored Date: Chief Complaint/Reason for Consultation [facility] and felt dizzy History of Present Illness Reason for consultation: Chest pain. Referring physician: Dr. Segovia. Established refining supervisor:, Dr. Yanes. ?? 78-year-old male past medical history of chronic HFrEF EF previously 30 to 35%, (45 to 50% this admission), nonischemic cardiomyopathy, status post AICD, hypertension, hyperlipidemia, patient of Dr. Yanes coming with a chief complaint of chest pain which has been worsening in intensity for the past several weeks, more than 1 month.?? He refers chest pain gets worse when he is up is over exertinghimself??at home.?It radiates to the left arm and lasts for more than 30 minutes on exertion.?? Associated symptoms include??shortness of breath and dizziness.?? Denies any actual syncope althoughstates that he has fallen a few times due to his dizziness.?? Subsequently, cardiology was consulted due to above-mentioned symptoms. ?? Troponin x 2 is 8.0, 6.9.?? BNP 46.5. EK/1 atrial paced rhythm, left axis deviation. Echocardiogram 03/20/2024: LVEF 45 to 50%, mildly decreased LV systolic function, pseudonormal pattern of LV diastolic filling, severe LVH, moderately dilated left atrium, mild to moderate dilatation of ascending aorta, RVSP 31.1. ?? On evaluation,??patient currently with no chest pain while??eating his lunch. ??No shortness of breath. Telemetry:??Sinus rhythm 72 bpm. ?? Family history: Brother with history of open heart surgery at 76 years old. Social history: Denies tobacco, alcohol, occasional drug use. Review of Systems Review of Systems Constitutional: No weight loss, fever, chills, weakness or fatigue. HEENT: No visual loss, blurred vision, double vision or yellow sclera. No hearing loss, sneezing, congestion, runny nose or sore throat. Skin: No rash or itching. Cardiovascular: +chest pain, +chest pressure +chest discomfort. No palpitations or pedal edema. Respiratory: +shortness of breath, denies cough or sputum production. Gastrointestinal: No anorexia, nausea, vomiting or diarrhea. No abdominal pain or blood in stool. Genitourinary: No burning micturition. No urinary frequency or incontinence. Neurologic: No headache,+dizziness, denies syncope, unilateral weakness, ataxia, numbness or tingling in the extremities. No change in bowel or bladder control. Musculoskeletal: No muscle pain, back pain, joint pain or stiffness. Hematologic: No bleeding or bruising. Lymphatics: No enlarged lymph nodes. Psychiatric: No depression or anxiety. Endocrine: No reports of sweating. No cold or heat intolerance. No polyuria or polydipsia. Objective Measurements (most recent)?? Height 170.18 cm?Safia NEFF, Reuben Quiroga ??03/19 16:38 Height (inches) 67.00 inch?SYSTEM ??03/19 16:38 Weight 135.17 kg?Reuben Baig RN ??03/19 16:38 Weight (lbs) 298.00 lb?SYSTEM ??03/19 16:38 Body Mass Index 46.67 kg/m2?Reuben Baig RN ??03/19 16:38 ? Vital Signs (24 hrs) Last Charted?? Minimum?? Maximum?? Temp?? L??36.4?? 03/20/2024 11:11?? L??36.3?? 03/19/2024 16:00 ?? L??36.3?? 03/19/2024 16:00?? Heart Rate Monitored?? 63?? 03/19/2024 20:00?? L??59?? 03/19/2024 16:00 ?? 63?? 03/19/2024 20:00?? Resp Rate?? 18?? 03/20/2024 11:11?? 16?? 03/19/2024 16:00 ?? 18?? 03/20/2024 07:33?? SBP?? 105?? 03/20/2024 11:11?? 105?? 03/20/2024 11:11 ?? H??138?? 03/19/2024 18:00?? DBP?? 62?? 03/20/2024 11:11?? L??29?? 03/19/2024 16:00 ?? 69?? 03/20/2024 07:33?? MAP?? 76?? 03/20/2024 11:11?? 76?? 03/19/2024 20:00 ?? 92?? 03/19/2024 18:00?? SpO2?? 97?? 03/20/2024 11:11?? 94?? 03/19/2024 19:57 ?? 99?? 03/19/2024 20:46?? O2 Flow Rate?? on 2 ? l/min? O2 Therapy?? Nasal cannula? Room air ? I&O 24 Hour Total? 03/19 19:35 05/02 07:00 05/01 07:00 03/18 07:00 03/17 07:00 ?? 03/20 12:24 03/20 12:24 03/20 06:59 03/19 06:59 03/18 06:59 Intake ?0 ?0 ?0 ?0 ?0 Output ?300 ?0 ?300 ?0 ?0 Net Total ? -300 ?0 ? -300 ?0 ?0 ? Physical Exam ?General: Alert and oriented, No acute distress. Obese appearing male. ?Eye: Normal conjunctiva. Anicteric sclerae. ?Neck: No carotid bruit, JVP 4 to 6 cm ?Respiratory: Lungs are clear to auscultation, Respirations are non- labored. On??O2 nasal cannula ?Cardiovascular: Normal rate, Regular rhythm, No murmur, No gallop, Good pulses equal in all extremities, Normal peripheral perfusion, No edema. ?Gastrointestinal: Soft, Non-tender, Non-distended, No organomegaly. ?Musculoskeletal: Normal strength. ?? No gross deformities. ?Integumentary: Warm.?? No rashes. ?Neurologic: No focal deficits. ? Psychiatry: Appropriate mood and affect.?? Cooperative following commands. Assessment/Plan Diagnoses Chronic HFrEF Status post AICD Chronic anticoagulation Hypotension Orthostatic hypotension ?? CAD (coronary artery disease) ??(I25.10) Moderate risk chest pain ??(R07.9) ? Assessment:??78 yo male past medical history of chronic HFrEF, nonischemic cardiomyopathy, status post AICD, hypertension, hyperlipidemia??coming in due to a chief complaint of chest pain for the past several months as well as dizziness and shortness of breath. ?? Chest pain: Atypical chest pain. ??Negative cardiac enzymes. ??Is not an acute coronary syndrome. Symptoms likely secondary to iatrogenic hypotension. ?? Chronic HFrEF ischemic cardiomyopathy: History of chronic HFrEF, currently stable. ??Euvolemic,??if anything, mildly hypovolemic. Patient with??hypotension, likely iatrogenic. ??He has lost about 20 pounds in the last few months.?? He has been taking all his??usual medications with no adjustments. Blood pressure at home has been ranging from 70s to 80s.?? Concomitantly he has used also nitroglycerin due to nonexertional chest pain. Medications need to be adjusted.?? I have made the following changes: -Metoprolol decreased down to 25 mg Spironolactone decreased to 25 mg Furosemide decreased to 60 mg Continue with Entresto with holding parameters. Holding parameters to all medications. Continue monitor orthostatics. ? AICD: Interrogate Medtronic pacemaker. ?? Hypertension: Controlled.??Continue current Rx.??Adjust as needed ?? Hyperlipidemia: Statins.??Low-carb diet. ? Discharge Planning:?Discharge Planning:?Discharge To, Anticipated:??Home with family care ? Over 35 minutes of acute care have been dedicated to this case including assessment the patient,election of chart and ancillary test results, development of a plan and discussing with the patient, the at the bedside and healthcare providers. Multiple medical problems have been reviewed and addressed. I have personally reviewed the chest x-ray images. ? I, Morgan??Fiorella MISSILE TRACKING TECHNICIAN, AGACNP, am scribing this note for and in the presence of Dr. Pacheco. ? Cardiology Staff ?? I, Ezekiel Pacheco MD, [facility],??personally performed the services documented above, as scribed by FABRICIO Stoner in my presence,??and verified that the documentation is accurate and complete.? Histories Allergies Allergies ?(Active and Proposed Allergies Only) adenosine? (Severity: Unknown severity, Onset: Unknown) ?Reactions: Other (See Comments) ?Comments: Outside Source Comment: bronchospasm donepezil? (Severity: Unknown severity, Onset: 08/04/2021) ?Reactions: Unknown ?Comments: Outside Source Comment: Other reaction(s): mild per pcp chart metFORMIN? (Severity: Unknown severity, Onset: 08/04/2021) ?Reactions: Unknown ?Comments: Outside Source Comment: Other reaction(s): per pcp chart--moderate codeine? (Severity: Unknown severity, Onset: Unknown) ?Reactions: [...] Direct current cardioversion: 01/04/23 Cholecystectomy;: 2020 LHC: 09/26/19 LHC / PTCA: 11/06/13 Appendectomy;: 03/20/64 inguinal hernia repair ? Social History Alcohol Details:??Current, 1-2 times per year Substance Abuse Details:??Denies Tobacco Details:??Denies ? Family History Brother: CABG - Coronary artery bypass graft ? Medications Home Medications amiodarone?200?Milligram?By Mouth?Daily apixaban (apixaban 5 mg oral tablet)?5?Milligram?1?Tabs?By Mouth?2 Times a Day aspirin (aspirin 81 mg oral capsule)?81?Milligram?1?Capsules?By Mouth?Daily atorvastatin?40?Milligram?By Mouth?Daily cholecalciferol (cholecalciferol 50 mcg (2000 intl units) oral capsule)?50?Microgram?1?Capsules?By Mouth?Daily empagliflozin (empagliflozin 25 mg oral tablet)?25?Milligram?1?Tabs?By Mouth?Every AM finasteride (finasteride 5 mg oral tablet)?5?Milligram?1?Tabs?By Mouth?Daily FLUoxetine?20?Milligram?By Mouth?Daily furosemide (furosemide 80 mg oral tablet)?80?Milligram?1?Tabs?By Mouth?Daily levothyroxine?25?Microgram?By Mouth?Daily loratadine?10?Milligram?By Mouth?Daily metoprolol (Metoprolol Succinate ER 100 mg oral tablet, extended release)?100?Milligram?1?Tabs?By Mouth?Daily pantoprazole (pantoprazole 20 mg oral delayed release tablet)?20?Milligram?1?Tabs?ByMouth?Daily rOPINIRole (rOPINIRole 1 mg oral tablet)?1?Milligram?1?Tabs?By Mouth?3 Times a Day sacubitril-valsartan (sacubitril-valsartan 24 mg-26 mg oral tablet)?See Instructions?0.5 TabsOral BID spironolactone (spironolactone 50 mg oral tablet)?50?Milligram?1?Tabs?By Mouth?Daily tamsulosin (tamsulosin 0.4 mg oral capsule)?0.4?Milligram?1?Capsules?By Mouth?Daily ? Inpatient Medications Medications (20) Active SCHEDULED: (16) amiodarone 200 mg Tab (amiodarone) ??100 mg 0.5 Tabs, Oral, Daily apixaban 5 mg Tab (apixaban) ??5 mg 1 Tabs, Oral, BID aspirin 81 mg Chew Tab (aspirin) ??81 mg 1 Tabs, Oral, Daily atorvastatin 40 mg Tab (atorvastatin) ??40 mg 1 Tabs, Oral, qHS cholecalciferol 25 mcg (1000 intl units) oral tablet ??50 mcg 2 Tabs, Oral, Daily dapagliflozin 10 mg Tab (Farxiga) ??10 mg 1 Tabs, Oral, Daily finasteride 5 mg Tab (finasteride) ??5 mg 1 Tabs, Oral, Daily FLUoxetine 20 mg Cap (FLUoxetine) ??20 mg 1 Caps, Oral, Daily furosemide 40 mg Tab (furosemide) ??80 mg 2 Tabs, Oral, Daily levothyroxine 25 mcg (0.025 mg) Tab (levothyroxine) ??25 mcg 1 Tabs, Oral, Daily loratadine 10 mg Tab (loratadine) ??10 mg 1 Tabs, Oral, Daily metoprolol succinate 50 mg XL Tab (Metoprolol Succinate ER) ??50 mg 1 Tabs, Oral, qHS pantoprazole 20 mg Oral EC Tab (pantoprazole) ??20 mg 1 Tabs, Oral, Daily rOPINIRole 1 mg Tab (rOPINIRole) ??1 mg 1 Tabs, Oral, TID spironolactone 50 mg Tab (spironolactone) ??50 mg 1 Tabs, Oral, Daily tamsulosin 0.4 mg SA Cap (tamsulosin) ??0.4 mg 1 Caps, Oral, Daily CONTINUOUS: (0) PRN: (4) acetaminophen 325 mg Tab (Tylenol) ??650 mg 2 Tabs, Oral, q4H nitroglycerin 0.4 mg Tab (nitroglycerin 0.4 mg sublingual tablet) ??0.4 mg 1 Tabs, SubLingual, q5Min Interval ondansetron 4 mg/2 mL vial (Zofran) ??4 mg 2 mL, IV Push, q4H sacubitril-valsartan 24 mg-26 mg Tab (sacubitril-valsartan 24 mg-26 mg oral tablet) ??See Instructions, Oral, As Directed ? Results Abnormal Labs ?? General Chemistry Mg Lvl?2.5 mg/dL (High)?03/19/2024 17:01 ?? General Hematology Hgb?13.60 gm/dL (Low)?03/19/2024 17:01 MCH?34.10 pg (High)?03/19/2024 17:01 MCV?100.1 Femtoliters (High)?03/19/2024 17:01 RBC?4.00 x10e6/mcL (Low)?03/19/2024 17:01 RDW-SD?48.60 Femtoliters (High)?03/19/2024 17:01 ?? Note: Critical results are displayed in red. ? CBC, BMP, Coagulation Trend (last 4 resulted) WBC 7.30 ?? 03/19/2024 ??17:01 ? Hgb 13.60 ??L?? 03/19/2024 ??17:01 ? Hct 40.00 ?? 03/19/2024 ??17:01 ? Baso # Auto 0.1 ?? 03/19/2024 ??17:01 ? Baso % Auto 0.7 ?? 03/19/2024 ??17:01 ? Eos # Auto 0.2 ?? 03/19/2024 ??17:01 ? Eos % Auto 3.0 ?? 03/19/2024 ??17:01 ? Lymph # Auto 2.0 ?? 03/19/2024 ??17:01 ? Lymph % Auto 28.1 ?? 03/19/2024 ??17:01 ? Otero # Auto 0.7 ?? 03/19/2024 ??17:01 ? Otero % Auto 10.0 ?? 03/19/2024 ??17:01 ? Neut # Auto 4.2 ?? 03/19/2024 ??17:01 ? Neut % Auto 58.2 ?? 03/19/2024 ??17:01 ? Plt 212 ?? 03/19/2024 ??17:01 ? Glucose Level 98 ?? 03/19/2024 ??17:01 ? Sodium 136 ?? 03/19/2024 ??17:01 ? Potassium 4.0 ?? 03/19/2024 ??17:01 ? Chloride 103 ?? 03/19/2024 ??17:01 ? CO2 30 ?? 03/19/2024 ??17:01 ? BUN 18 ?? 03/19/2024 ??17:01 ? Creatinine 1.2 ?? 03/19/2024 ??17:01 ? BUN/Creat Ratio 15.00 ?? 03/19/2024 ??17:01 ? Mg Lvl 2.5 ??H?? 03/19/2024 ??17:01 ? Calcium 9.7 ?? 03/19/2024 ??17:01 ? Albumin. Level 3.9 ?? 03/19/2024 ??17:01 ? T Bili 1.00 ?? 03/19/2024 ??17:01 ? Alk Phos 86 ?? 03/19/2024 ??17:01 ? AST 19 ?? 03/19/2024 ??17:01 ? ALT 27 ?? 03/19/2024 ??17:01 ? aPTT 29.6 ?? 03/19/2024 ??17:01 ? PT 10.7 ?? 03/19/2024 ??17:01 ? INR 0.94 ?? 03/19/2024 ??17:01 ? BMP, Mg, and Phos (Last Within 24hrs) Sodium: 136 mmol/L (17:01) Potassium: 4 mmol/L (17:01) Chloride: 103 mmol/L (17:01) CO2: 30 mmol/L (17:01) BUN: 18 mg/dL (17:01) Creatinine: 1.2 mg/dL (17:01) Glucose Level: 98 mg/dL (17:) Calcium: 9.7 mg/dL (17:) Mg Lvl:??2.5 mg/dL??High (17:) ?? LFT (Last Within 24hrs) AST: 19 Intl_units/L (17:) ALT: 27 Intl_units/L (17:) Alk Phos: 86 Intl_units/L (17:) T Bili: 1 mg/dL (17:) TP: 7.1 gm/dL (17:) Albumin. Level: 3.9 gm/dL (17:) ? Cardiology Labs BNP: 46.5 pg/mL (03/19/24 20:10:00) Troponin TNIH: 6.9 ng/L (03/19/24 18:35:00) Troponin TNIH: 8 ng/L (03/19/24 17:01:00) ? Electronically Signed By: Ezekiel Pacheco MD On: 03.20.2024 15:53 CDT * Joe MODI, Lei: MODIFY, PERFORM Event Display: Consult - Neurology Authored Date: Chief Complaint/Reason for Consultation pt comes in via ems from the [facility] had some CP and felt dizzy History of Present Illness 78-year-old male with past medical history of??ORLIN on CPAP, DM,??atrial fibrillation on chronic anticoagulation, coronary artery disease, CHF with??who came to the emergency room with c/o chest pain that was relieved by NTG. ??General neurology asked to see the patient??due to??episode of??near sync ope/syncope. Per patient,??he felt dizzy??when he tried to sit up or stand up. ??Per RN,??he had??episode where he??stares into??space??while standing up.?? No history of seizures.?? He is noticed to??be??orthostatic??hypotensive. ??Denies headache no vertigo. ??No lateralized weakness numbness. ??No trouble swallowing no dysarthria. Review of Systems Constitutional: No weight loss, fever, chills, weakness or fatigue. HEENT: No visual loss, blurred vision, double vision or yellow sclera. No hearing loss, sneezing, congestion, runny nose or sore throat. Skin: No rash or itching. Cardiovascular:??+ chest pain. No palpitations or pedal edema. Respiratory: No shortness of breath, cough or sputum production. Gastrointestinal: No anorexia, nausea, vomiting or diarrhea. No abdominal pain or blood in stool. Genitourinary: No burning micturition. No urinary frequency or incontinence. Neurologic: See above Musculoskeletal: No muscle pain, back pain, joint pain or stiffness. Hematologic: No bleeding or bruising. Lymphatics: No enlarged lymph nodes. Psychiatric: No depression or anxiety. Endocrine: No reports of sweating. No cold or heat intolerance. No polyuria or polydipsia. Objective Measurements (most recent)?? Height 170.18 cm?Reuben Baig RN ??03/19 16:38 Height (inches) 67.00 inch?SYSTEM ??03/19 16:38 Weight 135.17 kg?Reuben Baig RN ??03/19 16:38 Weight (lbs) 298.00 lb?SYSTEM ??03/19 16:38 Body Mass Index 46.67 kg/m2?Reuben Baig RN ??03/19 16:38 ? Vital Signs (24 hrs) Last Charted?? Minimum?? Maximum?? Temp?? L??36.3?? 03/20/2024 22:52?? L??36.3?? 03/19/2024 23:55 ?? L??36.3?? 03/19/2024 23:55?? Peripheral Pulse Rate?? 62?? 03/20/2024 22:52?? 60?? 03/19/2024 23:55 ?? 63?? 03/20/2024 19:18?? Resp Rate?? 17?? 03/20/2024 22:52?? 17?? 03/19/2024 23:55 ?? 18?? 03/20/2024 07:33?? SBP?? 129?? 03/20/2024 22:52?? 105?? 03/20/2024 11:11 ?? 132?? 03/20/2024 07:33?? DBP?? 68?? 03/20/2024 22:52?? 62?? 03/19/2024 23:55 ?? 69?? 03/20/2024 07:33?? MAP?? 88?? 03/20/2024 22:52?? 76?? 03/20/2024 11:11 ?? 90?? 03/20/2024 07:33?? SpO2?? 99?? 03/20/2024 22:52?? 97?? 03/20/2024 07:33 ?? 99?? 03/20/2024 03:18?? O2 Flow Rate?? on 2 ? l/min?? on 2 ? l/min?? on 2 ? l/min O2 Therapy?? Nasal cannula?? Nasal cannula?? Nasal cannula ? Perfusion Assessment Dorsalis Pedis Pulse, Left: 2+ Slightly diminished but greater than 1+ (03/20/24 08:00:00) Dorsalis Pedis Pulse, Right: 2+ Slightly diminished but greater than 1+ (03/20/24 08:00:00) Radial Pulse, Left: 3+ Normal/easily palpable (03/20/24 08:00:00) Radial Pulse, Right: 3+ Normal/easily palpable (03/20/24 08:00:00) ? I&O 24 Hour Total? 05/ 14:29 05/02 07:00 05/01 07:00 30 07:00 03/17 07:00 ?? 03/20 23:53 05/02 23:53 05/02 06:59 05/01 06:59 04/30 06:59 Intake ?600 ?600 ?0 ?0 ?0 Output ?650 ?350 ?300 ?0 ?0 Net Total ?-50 ?250 ? -300 ?0 ?0 Stool Count ?1 ?1 ?0 ?0 ?0 ? Precautions No Precautions documented.? Black Coma Scale Eye Opening Response Black: Spontaneously (03/20/24 08:00:00) Best Verbal Response Salix: Oriented and converses (03/20/24 08:00:00) Best Motor Response Salix: Obeys commands (03/20/24 08:00:00) Salix Coma Score: 15 (03/20/24 08:00:00) ?? Mental Status Exam ? Basic ADLs ? Stroke Assessments Salix Coma Scale Eye Opening Response Salix: Spontaneously (03/20/24 08:00:00) Best Verbal Response Salix: Oriented and converses (03/20/24 08:00:00) Best Motor Response Black: Obeys commands (03/20/24 08:00:00) Salix Coma Score: 15 (03/20/24 08:00:00) ?? Left Lower Extremity ACTIVE ROM?? No Data Available? Left Lower Extremity PASSIVE ROM?? No Data Available? Right Lower Extremity ACTIVE ROM?? No Data Available? Right Lower Extremity PASSIVE ROM?? No Data Available? Physical Exam General: Alert, in no acute [...] No hepatosplenomegaly. Genitourinary: No costovertebral angle tenderness. Neurologic:??Mildly dysarthric.?? Cranial nerves II-XII grossly intact. No focal neurological deficits. Deep tendon reflexes +1 bilaterally. Flexor plantar response. Moves all extremities spontaneously. Sensation intact bilaterally. Skin: No rashes or lesions. No petechiae or purpura. No edema. Musculoskeletal: No cyanosis or clubbing. No gross deformities. Normal range of motion. Lymphatics: Palpation of neck reveals no swelling or tenderness of neck nodes. Palpation of groin reveals no swelling or tenderness of groin nodes. Assessment/Plan 78-year-old male with a past medical history of ORLIN on CPAP, DM,??atrial fibrillation on chronic anticoagulation, coronary artery disease, CHF presented with??chest pain,??episode of dizziness. ?? 1. ??Episode of dizziness/near syncope/syncope.?? The patient is noticed to have a low blood pressure.?? After??morning dose of??blood pressure pill, blood pressure??went down from 130 to 105 systolic.?? The patient is also noticed to be orthostatic hypotensive. ??Recommend to adjust dose of??bloodpressure medications,??use??compression socks. ?? 2.?? Chest pain. ??As per cardiology ?? 3.?? ?Autonomic dysfunciton. EMG/NCV as outpatient ?? 4.?? Hypertension keep blood pressure between??1 20-1 40 systolic if possible ?? 5.?? A-fib??continue Eliquis ?? 6.?? Obstructive sleep apnea coronary artery disease CHF diabetes Discharge Planning:?Discharge Planning:?Discharge To, Anticipated:??Home with family care ? Order Date/Time Order Action Order Name Order Detail 03/20/2024 09:47 Order Folate Blood, Nurse collect, AM Draw collect, 03/21/24 4:00:00 CDT, Stop date 03/21/24 2:00:00 CDT 03/20/2024 09:47 Order Hgb A1C 3 Blood, Nurse collect, AM Draw collect, 03/21/24 4:00:00 CDT, Stop date 03/21/24 2:00:00 CDT 03/20/2024 09:47 Order Orthostatic Vital Signs 03/20/24 9:47:00 CDT, Once, Stop date 03/20/24 9:47:00 CDT, 03/20/24 9:47:00 CDT 03/20/2024 09:47 Order Vit B12 (B12 Level) Blood, Nurse collect, AM Draw collect, 03/21/24 4:00:00 CDT, Stop date 03/21/24 2:00:00 CDT ? Histories Allergies Allergies ?(Active and Proposed Allergies Only) adenosine? (Severity: Unknown severity, Onset: Unknown) ?Reactions: Other (See Comments) ?Comments: Outside Source Comment: bronchospasm donepezil? (Severity: Unknown severity, Onset: 08/04/2021) ?Reactions: Unknown ?Comments: Outside Source Comment: Other reaction(s): mild per pcp chart metFORMIN? (Severity: Unknown severity, Onset: 08/04/2021) ?Reactions: Unknown ?Comments: Outside Source Comment: Other reaction(s): per pcp chart--moderate codeine? (Severity: Unknown severity, Onset: Unknown) ?Reactions: [...] Abuse Details:??Denies Tobacco Details:??Denies ? Family History Brother: CABG - Coronary artery bypass graft ? Medications Home Medications amiodarone?200?Milligram?By Mouth?Daily apixaban (apixaban 5 mg oral tablet)?5?Milligram?1?Tabs?By Mouth?2 Times a Day aspirin (aspirin 81 mg oral capsule)?81?Milligram?1?Capsules?By Mouth?Daily atorvastatin?40?Milligram?By Mouth?Daily cholecalciferol (cholecalciferol 50 mcg (2000 intl units) oral capsule)?50?Microgram?1?Capsules?By Mouth?Daily empagliflozin (empagliflozin 25 mg oral tablet)?25?Milligram?1?Tabs?By Mouth?Every AM finasteride (finasteride 5 mg oral tablet)?5?Milligram?1?Tabs?By Mouth?Daily FLUoxetine?20?Milligram?By Mouth?Daily furosemide (furosemide 80 mg oral tablet)?80?Milligram?1?Tabs?By Mouth?Daily levothyroxine?25?Microgram?By Mouth?Daily loratadine?10?Milligram?By Mouth?Daily metoprolol (Metoprolol Succinate ER 100 mg oral tablet, extended release)?100?Milligram?1?Tabs?By Mouth?Daily pantoprazole (pantoprazole 20 mg oral delayed release tablet)?20?Milligram?1?Tabs?ByMouth?Daily rOPINIRole (rOPINIRole 1 mg oral tablet)?1?Milligram?1?Tabs?By Mouth?3 Times a Day sacubitril-valsartan (sacubitril-valsartan 24 mg-26 mg oral tablet)?See Instructions?0.5 TabsOral BID spironolactone (spironolactone 50 mg oral tablet)?50?Milligram?1?Tabs?By Mouth?Daily tamsulosin (tamsulosin 0.4 mg oral capsule)?0.4?Milligram?1?Capsules?By Mouth?Daily ? Inpatient Medications Medications (20) Active SCHEDULED: (16) amiodarone 200 mg Tab (amiodarone) ??100 mg 0.5 Tabs, Oral, Daily apixaban 5 mg Tab (apixaban) ??5 mg 1 Tabs, Oral, BID aspirin 81 mg Chew Tab (aspirin) ??81 mg 1 Tabs, Oral, Daily atorvastatin 40 mg Tab (atorvastatin) ??40 mg 1 Tabs, Oral, qHS cholecalciferol 25 mcg (1000 intl units) oral tablet ??50 mcg 2 Tabs, Oral, Daily dapagliflozin 10 mg Tab (Farxiga) ??10 mg 1 Tabs, Oral, Daily finasteride 5 mg Tab (finasteride) ??5 mg 1 Tabs, Oral, Daily FLUoxetine 20 mg Cap (FLUoxetine) ??20 mg 1 Caps, Oral, Daily furosemide 20 mg Tab (furosemide) ??60 mg 3 Tabs, Oral, Daily levothyroxine 25 mcg (0.025 mg) Tab (levothyroxine) ??25 mcg 1 Tabs, Oral, Daily loratadine 10 mg Tab (loratadine) ??10 mg 1 Tabs, Oral, Daily metoprolol succinate 25 mg XL Tab (Metoprolol Succinate ER) ??25 mg 1 Tabs, Oral, qHS pantoprazole 20 mg Oral EC Tab (pantoprazole) ??20 mg 1 Tabs, Oral, Daily rOPINIRole 1 mg Tab (rOPINIRole) ??1 mg 1 Tabs, Oral, TID spironolactone 25 mg Tab (spironolactone) ??25 mg 1 Tabs, Oral, Daily tamsulosin 0.4 mg SA Cap (tamsulosin) ??0.4 mg 1 Caps, Oral, Daily CONTINUOUS: (0) PRN: (4) acetaminophen 325 mg Tab (Tylenol) ??650 mg 2 Tabs, Oral, q4H nitroglycerin 0.4 mg Tab (nitroglycerin 0.4 mg sublingual tablet) ??0.4 mg 1 Tabs, SubLingual, q5Min Interval ondansetron 4 mg/2 mL vial (Zofran) ??4 mg 2 mL, IV Push, q4H sacubitril-valsartan 24 mg-26 mg Tab (sacubitril-valsartan 24 mg-26 mg oral tablet) ??See Instructions, Oral, As Directed ? Results Recent Labs Cardiac BNP 46.5 pg/mL (Normal)?? 03/19/2024 20:10 Troponin TNIH 6.9 ng/L (Normal)?? 03/19/2024 18:35 ?? General Chemistry Glucose Level 98 mg/dL (Normal)?? 03/19/2024 17:01 Sodium 136 mmol/L (Normal)?? 03/19/2024 17:01 Potassium 4.0 mmol/L (Normal)?? 03/19/2024 17:01 Chloride 103 mmol/L (Normal)?? 03/19/2024 17:01 CO2 30 mmol/L (Normal)?? 03/19/2024 17:01 Anion Gap 3 mmol/L (Normal)?? 03/19/2024 17:01 BUN 18 mg/dL (Normal)?? 03/19/2024 17:01 Creatinine 1.2 mg/dL (Normal)?? 03/19/2024 17:01 BUN/Creat Ratio 15.00 Ratio (Normal)?? 03/19/2024 17:01 Calcium 9.7 mg/dL (Normal)?? 03/19/2024 17:01 Albumin. Level 3.9 gm/dL (Normal)?? 03/19/2024 17:01 TP 7.1 gm/dL (Normal)?? 03/19/2024 17:01 T Bili 1.00 mg/dL (Normal)?? 03/19/2024 17:01 Alk Phos 86 Intl_units/L (Normal)?? 03/19/2024 17:01 AST 19 Intl_units/L (Normal)?? 03/19/2024 17:01 ALT 27 Intl_units/L (Normal)?? 03/19/2024 17:01 Mg Lvl 2.5 mg/dL (High)?? 03/19/2024 17:01 Estimated Creatinine Clearance 46.67 mL/min ()?? 03/19/2024 17:37 eGFR Cr 62 mL/min/1.73m2 (N/A)?? 03/19/2024 17:01 eGFR Pediatric Not Reported mL/min/1.73m2 (N/A)?? 03/19/2024 17:01 ?? General Coagulation PT 10.7 Seconds (Normal)?? 03/19/2024 17:01 INR 0.94 (Normal)?? 03/19/2024 17:01 aPTT 29.6 Seconds (Normal)?? 03/19/2024 17:01 ?? General Hematology WBC 7.30 x10e3/mcL (Normal)?? 03/19/2024 17:01 RBC 4.00 x10e6/mcL (Low)?? 03/19/2024 17:01 Hgb 13.60 gm/dL (Low)?? 03/19/2024 17:01 Hct 40.00 % (Normal)?? 03/19/2024 17:01 MCV 100.1 Femtoliters (High)?? 03/19/2024 17:01 MCH 34.10 pg (High)?? 03/19/2024 17:01 MCHC 34.10 gm/dL (Normal)?? 03/19/2024 17:01 RDW-SD 48.60 Femtoliters (High)?? 03/19/2024 17:01 RDW-CV 13.60 % (Normal)?? 03/19/2024 17:01 Plt 212 x10e3/mcL (Normal)?? 03/19/2024 17:01 MPV 8.00 Femtoliters (Normal)?? 03/19/2024 17:01 Neut % Auto 58.2 % (Normal)?? 03/19/2024 17:01 Lymph % Auto 28.1 % (Normal)?? 03/19/2024 17:01 Otero % Auto 10.0 % (Normal)?? 03/19/2024 17:01 Eos % Auto 3.0 % (Normal)?? 03/19/2024 17:01 Baso % Auto 0.7 % (Normal)?? 03/19/2024 17:01 Neut # Auto 4.2 x10e3/mcL (Normal)?? 03/19/2024 17:01 Lymph # Auto 2.0 x10e3/mcL (Normal)?? 03/19/2024 17:01 Otero # Auto 0.7 x10e3/mcL (Normal)?? 03/19/2024 17:01 Eos # Auto 0.2 x10e3/mcL (Normal)?? 03/19/2024 17:01 Baso # Auto 0.1 x10e3/mcL (Normal)?? 03/19/2024 17:01 ? Abnormal Labs No lab data available. ?? CBC, BMP, Coagulation Trend (last 4 resulted) WBC 7.30 ?? 03/19/2024 ??17:01 ? Hgb 13.60 ??L?? 03/19/2024 ??17:01 ? Hct 40.00 ?? 03/19/2024 ??17:01 ? Baso # Auto 0.1 ?? 03/19/2024 ??17:01 ? Baso % Auto 0.7 ?? 03/19/2024 ??17:01 ? Eos # Auto 0.2 ?? 03/19/2024 ??17:01 ? Eos % Auto 3.0 ?? 03/19/2024 ??17:01 ? Lymph # Auto 2.0 ?? 03/19/2024 ??17:01 ? Lymph % Auto 28.1 ?? 03/19/2024 ??17:01 ? Otero # Auto 0.7 ?? 03/19/2024 ??17:01 ? Otero % Auto 10.0 ?? 03/19/2024 ??17:01 ? Neut # Auto 4.2 ?? 03/19/2024 ??17:01 ? Neut % Auto 58.2 ?? 03/19/2024 ??17:01 ? Plt 212 ?? 03/19/2024 ??17:01 ? Glucose Level 98 ?? 03/19/2024 ??17:01 ? Sodium 136 ?? 03/19/2024 ??17:01 ? Potassium 4.0 ?? 03/19/2024 ??17:01 ? Chloride 103 ?? 03/19/2024 ??17:01 ? CO2 30 ?? 03/19/2024 ??17:01 ? BUN 18 ?? 03/19/2024 ??17:01 ? Creatinine 1.2 ?? 03/19/2024 ??17:01 ? BUN/Creat Ratio 15.00 ?? 03/19/2024 ??17:01 ? Mg Lvl 2.5 ??H?? 03/19/2024 ??17:01 ? Calcium 9.7 ?? 03/19/2024 ??17:01 ? Albumin. Level 3.9 ?? 03/19/2024 ??17:01 ? T Bili 1.00 ?? 03/19/2024 ??17:01 ? Alk Phos 86 ?? 03/19/2024 ??17:01 ? AST 19 ?? 03/19/2024 ??17:01 ? ALT 27 ?? 03/19/2024 ??17:01 ? aPTT 29.6 ?? 03/19/2024 ??17:01 ? PT 10.7 ?? 03/19/2024 ??17:01 ? INR 0.94 ?? 03/19/2024 ??17:01 ? Blood Glucose Trend ? Cardiology Labs BNP: 46.5 pg/mL (03/19/24 20:10:00) Troponin TNIH: 6.9 ng/L (03/19/24 18:35:00) Troponin TNIH: 8 ng/L (03/19/24 17:01:00) ? Electronically Signed By: Titus Diaz MD On: 03.21.2024 10:51 CDT Progress note * Titus Diaz MD: PERFORM Event Display: Progress Note-Physician Authored Date: [id number] Subjective less dizziness while sitting up. Chief Complaint/Reason for Consultation Chief Complaint: [facility] and felt dizzy ?? Allergies Allergies ?(Active and Proposed Allergies Only) adenosine? (Severity: Unknown severity, Onset: Unknown) ?Reactions: Other (See Comments) ?Comments: Outside Source Comment: bronchospasm donepezil? (Severity: Unknown severity, Onset: 08/04/2021) ?Reactions: Unknown ?Comments: Outside Source Comment: Other reaction(s): mild per pcp chart metFORMIN? (Severity: Unknown severity, Onset: 08/04/2021) ?Reactions: Unknown ?Comments: Outside Source Comment: Other reaction(s): per pcp chart--moderate codeine? (Severity: Unknown severity, Onset: Unknown) ?Reactions: [...] Abuse Details:??Denies Tobacco Details:??Denies ? Family History Brother: CABG - Coronary artery bypass graft ? Objective Measurements (most recent)?? Height 170.18 cm?Reuben Baig RN ??03/19 16:38 Height (inches) 67.00 inch?SYSTEM ??03/19 16:38 Weight 135.17 kg?Reuben Baig RN ??03/19 16:38 Weight (lbs) 298.00 lb?SYSTEM ??03/19 16:38 Body Mass Index 46.67 kg/m2?Reuben Baig RN ??03/19 16:38 ? Vital Signs (24 hrs) Last Charted?? Minimum?? Maximum?? Temp?? 36.6?? 03/21/2024 10:49?? L??36.4?? 03/20/2024 15:16 ?? L??36.4?? 03/20/2024 15:16?? Peripheral Pulse Rate?? 63?? 03/21/2024 10:49?? 60?? 03/20/2024 15:16 ?? 69?? 03/21/2024 07:27?? Resp Rate?? 16?? 03/21/2024 10:49?? 16?? 03/21/2024 07:27 ?? 18?? 03/20/2024 15:16?? SBP?? 115?? 03/21/2024 10:49?? 107?? 03/20/2024 15:16 ?? H??136?? 03/21/2024 07:27?? DBP?? 62?? 03/21/2024 10:49?? 62?? 03/21/2024 10:49 ?? H??88?? 03/21/2024 07:27?? MAP?? 80?? 03/21/2024 10:49?? 80?? 03/20/2024 15:16 ?? 104?? 03/21/2024 07:27?? SpO2?? 98?? 03/21/2024 10:49?? 98?? 03/20/2024 15:16 ?? 99?? 03/20/2024 22:52?? O2 Flow Rate?? on 2 ? l/min?? on 2 ? l/min?? on 2 ? l/min O2 Therapy?? Nasal cannula?? Nasal cannula?? Nasal cannula ? Perfusion Assessment Dorsalis Pedis Pulse, Left: 2+ Slightly diminished but greater than 1+ (03/20/24 20:00:00) Dorsalis Pedis Pulse, Right: 2+ Slightly diminished but greater than 1+ (03/20/24 20:00:00) Radial Pulse, Left: 2+ Slightly diminished but greater than 1+ (03/20/24 20:00:00) Radial Pulse, Right: 2+ Slightly diminished but greater than 1+ (03/20/24 20:00:00) ? Pain Scores (Last Within 24hrs) Numeric Pain Scale: 0 = No pain (04:00) ? Precautions No Precautions documented.? Salix Coma Scale Eye Opening Response Salix: Spontaneously (03/20/24 20:00:00) Best Verbal Response Black: Oriented and converses (03/20/24 20:00:00) Best Motor Response Black: Obeys commands (03/20/24 20:00:00) Black Coma Score: 15 (03/20/24 20:00:00) ?? Mental Status Exam ? Basic ADLs ? Mobility & Ambulation Level PT Bed Mobility Bed Mobility Supine to Sit: Rehab Complete independence (03/21/24) PT Transfer Mobility Transfer Sit to Stand Rehab: Rehab Complete independence (03/21/24) Transfer Stand to Sit Rehab: Rehab Complete independence (03/21/24) PT Ambulation Ambulation Level Rehab: Complete [place] (03/21/24) Ambulation Distance: 350 ft (03/21/24) Ambulation Device Utilized: None (03/21/24) ?? Therapeutic Activity ? Stroke Assessments Salix Coma Scale Eye Opening Response Black: Spontaneously (03/20/24 20:00:00) Best Verbal Response Salix: Oriented and converses (03/20/24 20:00:00) Best Motor Response Black: Obeys commands (03/20/24 20:00:00) Salix Coma Score: 15 (03/20/24 20:00:00) ?? Left Lower Extremity ACTIVE ROM?? No Data Available? Left Lower Extremity PASSIVE ROM?? No Data Available? Right Lower Extremity ACTIVE ROM?? No Data Available? Right Lower Extremity PASSIVE ROM?? No Data Available? Pete ST?? Pete Score ?Pete Score 20.00?Sherri NEFF, Helen ??03/20 20:00 ? Referral to Wound Care Order?? No Data Available? Incision and Wound DG?? No Data Available? Skin Abnormality DG?? No Data Available? Physical Exam AA&Ox3. slow to respond. PERRL EOMI. no facial asymmetry. moves all ext. _ Home Medications amiodarone (amiodarone 200 mg oral tablet)?100?Milligram?0.5?Tabs?By Mouth?Daily apixaban (apixaban 5 mg oral tablet)?5?Milligram?1?Tabs?By Mouth?2 Times a Day aspirin (aspirin 81 mg oral tablet, chewable)?81?Milligram?1?Tabs?By Mouth?Daily atorvastatin (atorvastatin 40 mg oral tablet)?40?Milligram?1?Tabs?By Mouth?at Bedtime cholecalciferol (cholecalciferol 25 mcg (1000 intl units) oral tablet)?50?Microgram?2?Tabs?By Mouth?Daily dapagliflozin (dapagliflozin 10 mg oral tablet)?10?Milligram?1?Tabs?By Mouth?Daily finasteride (finasteride 5 mg oral tablet)?5?Milligram?1?Tabs?By Mouth?Daily FLUoxetine (FLUoxetine 20 mg oral capsule)?20?Milligram?1?Capsules?By Mouth?Daily furosemide (furosemide 20 mg oral tablet)?60?Milligram?3?Tabs?By Mouth?Daily levothyroxine (levothyroxine 25 mcg (0.025 mg) oral tablet)?25?Microgram?1?Tabs?By Mouth?Daily loratadine (loratadine 10 mg oral tablet)?10?Milligram?1?Tabs?By Mouth?Daily metoprolol (Metoprolol Succinate ER 25 mg oral tablet, extended release)?25?Milligram?1?Tabs?By Mouth?Daily?for 30?Days pantoprazole (pantoprazole 20 mg oral delayed release tablet)?20?Milligram?1?Tabs?ByMouth?Daily rOPINIRole (rOPINIRole 1 mg oral tablet)?1?Milligram?1?Tabs?By Mouth?3 Times a Day sacubitril-valsartan (sacubitril-valsartan 24 mg-26 mg oral tablet)?See Instructions?0.5 TabsOral BIDHold for SBP < 100 spironolactone (spironolactone 25 mg oral tablet)?25?Milligram?1?Tabs?By Mouth?Daily tamsulosin (tamsulosin 0.4 mg oral capsule)?0.4?Milligram?1?Capsules?By Mouth?Daily ? Inpatient Medications Medications (20) Active SCHEDULED: (16) amiodarone 200 mg Tab (amiodarone) ??100 mg 0.5 Tabs, Oral, Daily apixaban 5 mg Tab (apixaban) ??5 mg 1 Tabs, Oral, BID aspirin 81 mg Chew Tab (aspirin) ??81 mg 1 Tabs, Oral, Daily atorvastatin 40 mg Tab (atorvastatin) ??40 mg 1 Tabs, Oral, qHS cholecalciferol 25 mcg (1000 intl units) oral tablet ??50 mcg 2 Tabs, Oral, Daily dapagliflozin 10 mg Tab (Farxiga) ??10 mg 1 Tabs, Oral, Daily finasteride 5 mg Tab (finasteride) ??5 mg 1 Tabs, Oral, Daily FLUoxetine 20 mg Cap (FLUoxetine) ??20 mg 1 Caps, Oral, Daily furosemide 20 mg Tab (furosemide) ??60 mg 3 Tabs, Oral, Daily levothyroxine 25 mcg (0.025 mg) Tab (levothyroxine) ??25 mcg 1 Tabs, Oral, Daily loratadine 10 mg Tab (loratadine) ??10 mg 1 Tabs, Oral, Daily metoprolol succinate 25 mg XL Tab (Metoprolol Succinate ER) ??25 mg 1 Tabs, Oral, qHS pantoprazole 20 mg Oral EC Tab (pantoprazole) ??20 mg 1 Tabs, Oral, Daily rOPINIRole 1 mg Tab (rOPINIRole) ??1 mg 1 Tabs, Oral, TID spironolactone 25 mg Tab (spironolactone) ??25 mg 1 Tabs, Oral, Daily tamsulosin 0.4 mg SA Cap (tamsulosin) ??0.4 mg 1 Caps, Oral, Daily CONTINUOUS: (0) PRN: (4) acetaminophen 325 mg Tab (Tylenol) ??650 mg 2 Tabs, Oral, q4H nitroglycerin 0.4 mg Tab (nitroglycerin 0.4 mg sublingual tablet) ??0.4 mg 1 Tabs, SubLingual, q5Min Interval ondansetron 4 mg/2 mL vial (Zofran) ??4 mg 2 mL, IV Push, q4H sacubitril-valsartan 24 mg-26 mg Tab (sacubitril-valsartan 24 mg-26 mg oral tablet) ??See Instructions, Oral, As Directed ? 72 hour Antibiotic History No qualifying data available... ? Results Recent Labs Cardiac BNP 34.7 pg/mL (Normal)?? 03/21/2024 02:55 ?? General Chemistry Glucose Level 130 mg/dL (High)?? 03/21/2024 02:55 Sodium 136 mmol/L (Normal)?? 03/21/2024 02:55 Potassium 3.6 mmol/L (Normal)?? 03/21/2024 02:55 Chloride 101 mmol/L (Normal)?? 03/21/2024 02:55 CO2 33 mmol/L (High)?? 03/21/2024 02:55 Anion Gap 2 mmol/L (Low)?? 03/21/2024 02:55 BUN 18 mg/dL (Normal)?? 03/21/2024 02:55 Creatinine 1.2 mg/dL (Normal)?? 03/21/2024 02:55 BUN/Creat Ratio 15.00 Ratio (Normal)?? 03/21/2024 02:55 Calcium 9.6 mg/dL (Normal)?? 03/21/2024 02:55 eGFR Cr 62 mL/min/1.73m2 (N/A)?? 03/21/2024 02:55 eGFR Pediatric Not Reported mL/min/1.73m2 (N/A)?? 03/21/2024 02:55 Hgb A1C 6.40 % (High)?? 03/21/2024 02:55 Est Avg Glucose 137 mg/dL (High)?? 03/21/2024 02:55 Folate Lvl 45.6 ng/mL (High)?? 03/21/2024 02:55 Vitamin B12 Lvl 1942 pg/mL (High)?? 03/21/2024 02:55 ?? General Hematology WBC 6.60 x10e3/mcL (Normal)?? 03/21/2024 02:55 RBC 4.00 x10e6/mcL (Low)?? 03/21/2024 02:55 Hgb 13.60 gm/dL (Low)?? 03/21/2024 02:55 Hct 39.90 % (Low)?? 03/21/2024 02:55 MCV 99.6 Femtoliters (Normal)?? 03/21/2024 02:55 MCH 33.90 pg (High)?? 03/21/2024 02:55 MCHC 34.00 gm/dL (Normal)?? 03/21/2024 02:55 RDW-SD 46.80 Femtoliters (High)?? 03/21/2024 02:55 RDW-CV 13.40 % (Normal)?? 03/21/2024 02:55 Plt 181 x10e3/mcL (Normal)?? 03/21/2024 02:55 MPV 7.50 Femtoliters (Normal)?? 03/21/2024 02:55 Neut % Auto 59.1 % (Normal)?? 03/21/2024 02:55 Lymph % Auto 27.1 % (Normal)?? 03/21/2024 02:55 Otero % Auto 10.0 % (Normal)?? 03/21/2024 02:55 Eos % Auto 3.3 % (Normal)?? 03/21/2024 02:55 Baso % Auto 0.5 % (Normal)?? 03/21/2024 02:55 Neut # Auto 3.9 x10e3/mcL (Normal)?? 03/21/2024 02:55 Lymph # Auto 1.8 x10e3/mcL (Normal)?? 03/21/2024 02:55 Otero # Auto 0.7 x10e3/mcL (Normal)?? 03/21/2024 02:55 Eos # Auto 0.2 x10e3/mcL (Normal)?? 03/21/2024 02:55 Baso # Auto 0.0 x10e3/mcL (Normal)?? 03/21/2024 02:55 ? Abnormal Labs ?? General Chemistry Anion Gap?2 mmol/L (Low)?03/21/2024 02:55 CO2?33 mmol/L (High)?03/21/2024 02:55 Est Avg Glucose?137 mg/dL (High)?03/21/2024 02:55 Folate Lvl?45.6 ng/mL (High)?03/21/2024 02:55 Glucose Level?130 mg/dL (High)?03/21/2024 02:55 Hgb A1C?6.40 % (High)?03/21/2024 02:55 Vitamin B12 Lvl?1942 pg/mL (High)?03/21/2024 02:55 ?? General Hematology Hct?39.90 % (Low)?03/21/2024 02:55 Hgb?13.60 gm/dL (Low)?03/21/2024 02:55 MCH?33.90 pg (High)?03/21/2024 02:55 RBC?4.00 x10e6/mcL (Low)?03/21/2024 02:55 RDW-SD?46.80 Femtoliters (High)?03/21/2024 02:55 ?? Note: Critical results are displayed in red. ? CBC, BMP, Coagulation Trend (last 4 resulted) WBC 6.60 ?? 03/21/2024 ??02:55 7.30 ?? 03/19/2024 ??17:01 ? Hgb 13.60 ??L?? 03/21/2024 ??02:55 13.60 ??L?? 03/19/2024 ??17:01 ? Hct 39.90 ??L?? 03/21/2024 ??02:55 40.00 ?? 03/19/2024 ??17:01 ? Baso # Auto 0.0 ?? 03/21/2024 ??02:55 0.1 ?? 03/19/2024 ??17:01 ? Baso % Auto 0.5 ?? 03/21/2024 ??02:55 0.7 ?? 03/19/2024 ??17:01 ? Eos # Auto 0.2 ?? 03/21/2024 ??02:55 0.2 ?? 03/19/2024 ??17:01 ? Eos % Auto 3.3 ?? 03/21/2024 ??02:55 3.0 ?? 03/19/2024 ??17:01 ? Lymph # Auto 1.8 ?? 03/21/2024 ??02:55 2.0 ?? 03/19/2024 ??17:01 ? Lymph % Auto 27.1 ?? 03/21/2024 ??02:55 28.1 ?? 03/19/2024 ??17:01 ? Otero # Auto 0.7 ?? 03/21/2024 ??02:55 0.7 ?? 03/19/2024 ??17:01 ? Otero % Auto 10.0 ?? 03/21/2024 ??02:55 10.0 ?? 03/19/2024 ??17:01 ? Neut # Auto 3.9 ?? 03/21/2024 ??02:55 4.2 ?? 03/19/2024 ??17:01 ? Neut % Auto 59.1 ?? 03/21/2024 ??02:55 58.2 ?? 03/19/2024 ??17:01 ? Plt 181 ?? 03/21/2024 ??02:55 212 ?? 03/19/2024 ??17:01 ? Glucose Level 130 ??H?? 03/21/2024 ??02:55 98 ?? 03/19/2024 ??17:01 ? Sodium 136 ?? 03/21/2024 ??02:55 136 ?? 03/19/2024 ??17:01 ? Potassium 3.6 ?? 03/21/2024 ??02:55 4.0 ?? 03/19/2024 ??17:01 ? Chloride 101 ?? 03/21/2024 ??02:55 103 ?? 03/19/2024 ??17:01 ? CO2 33 ??H?? 03/21/2024 ??02:55 30 ?? 03/19/2024 ??17:01 ? BUN 18 ?? 03/21/2024 ??02:55 18 ?? 03/19/2024 ??17:01 ? Creatinine 1.2 ?? 03/21/2024 ??02:55 1.2 ?? 03/19/2024 ??17:01 ? BUN/Creat Ratio 15.00 ?? 03/21/2024 ??02:55 15.00 ?? 03/19/2024 ??17:01 ? Mg Lvl 2.5 ??H?? 03/19/2024 ??17:01 ? Calcium 9.6 ?? 03/21/2024 ??02:55 9.7 ?? 03/19/2024 ??17:01 ? Albumin. Level 3.9 ?? 03/19/2024 ??17:01 ? T Bili 1.00 ?? 03/19/2024 ??17:01 ? Alk Phos 86 ?? 03/19/2024 ??17:01 ? AST 19 ?? 03/19/2024 ??17:01 ? ALT 27 ?? 03/19/2024 ??17:01 ? aPTT 29.6 ?? 03/19/2024 ??17:01 ? PT 10.7 ?? 03/19/2024 ??17:01 ? INR 0.94 ?? 03/19/2024 ??17:01 ? Blood Glucose Trend Glucose Level:??130 mg/dL??High (03/21/24 02:55:00) ? CBC (Last Within 24hrs) WBC: 6.6 x10e3/mcL (02:55) Hgb:??13.6 gm/dL??Low (02:55) Hct:??39.9 %??Low (02:55) Plt: 181 x10e3/mcL (02:55) ?? Differential (Last Within 24hrs)?? - Automated -?? Neut % Auto: 59.1 % (02:55) Lymph % Auto: 27.1 % (02:55) [place] % Auto: 10 % (02:55) Eos % Auto: 3.3 % (02:55) Baso % Auto: 0.5 % (02:55) Neut # Auto: 3.9 x10e3/mcL (02:55) Lymph # Auto: 1.8 x10e3/mcL (02:55) [place] # Auto: 0.7 x10e3/mcL (02:55) Eos # Auto: 0.2 x10e3/mcL (02:55) Baso # Auto: 0 x10e3/mcL (02:55) ? BMP, Mg, and Phos (Last Within 24hrs) Sodium: 136 mmol/L (02:55) Potassium: 3.6 mmol/L (02:55) Chloride: 101 mmol/L (02:55) CO2:??33 mmol/L??High (02:55) BUN: 18 mg/dL (02:55) Creatinine: 1.2 mg/dL (02:55) Glucose Level:??130 mg/dL??High (02:55) Calcium: 9.6 mg/dL (02:55) ? Cardiology Labs BNP: 34.7 pg/mL (03/21/24 02:55:00) BNP: 46.5 pg/mL (03/19/24 20:10:00) Troponin TNIH: 6.9 ng/L (03/19/24 18:35:00) Troponin TNIH: 8 ng/L (03/19/24 17:01:00) ? Assessment/Plan 78-year-old male with a past medical history of ORLIN on CPAP, DM,??atrial fibrillation on chronic anticoagulation, coronary artery disease, CHF presented with??chest pain,??episode of dizziness. ?? 1. ??Episode of dizziness/near syncope/syncope.?? The patient is noticed to have a low blood pressure.?? After??morning dose of??blood pressure pill, blood pressure??went down from 130 to 105 systolic.?? The patient is also noticed to be orthostatic hypotensive. ??Recommend to adjust dose of??bloodpressure medications,??use??compression socks. - less dizzy. BP improving ?? 2.?? Chest pain. ??As per cardiology ?? 3.?? ?Autonomic dysfunction. EMG/NCV as outpatient ?? 4.?? Hypertension keep blood pressure between??1 20-1 40 systolic if possible ?? 5.?? A-fib??continue Eliquis ?? 6.?? Obstructive sleep apnea coronary artery disease CHF diabetes ?? OK to discharge from neuro standpoing. ?? Discharge Planning:?Discharge Planning:?Discharge To, Anticipated:??Home with family care ? Electronically Signed By: Titus Diaz MD On: 03.21.2024 15:12 CDT History and physical note * Luca MODI, [facility]: MODIFY, MODIFY, PERFORM, MODIFY, MODIFY, MODIFY, MODIFY, MODIFY Event Display: History & Physical Authored Date: Chief Complaint/Reason for Consultation pt comes in via ems from the [facility] had some CP and felt dizzy History of Present Illness 78-year-old male with past medical history of??ORLIN on CPAP, DM,??atrial fibrillation on chronic anticoagulation, coronary artery disease, CHF with??who came to the emergency room with c/o chest pain that was relieved by NTG ?? The patient presents with chest pain. ??The onset was just prior to arrival, at rest and Patient was barbecuing at home when he developed pain in the chest. ??His gave him 1 NTG sublingual and his pain resolved after about 10 minutes. ??However when he went to see the [facility] they suggested him to come for evaluation because he had pain yesterday and the day before also. ? The degree at present is Resolved but still have occasional poking in the left upper chest. ?Associated symptoms: shortness of breath and Very dizzy.? Review of Systems Constitutional symptoms: ??Negative except as documented in HPI, no fever, no chills, no fatigue. ?? Skin symptoms: ??Negative except as documented in HPI, No rash, ?? Eye symptoms: ??Negative except as documented in HPI, no recent vision problems, no blurred vision.?? ENMT symptoms: ??Negative except as documented in HPI, no sore throat, no nasal congestion. ?? Respiratory symptoms: ??Negative except as documented in HPI, no shortness of breath, no cough, no hemoptysis, no stridor, no wheezing. ?? Cardiovascular symptoms: ??Chest pain, no palpitations, no diaphoresis, no peripheral edema. ?? Gastrointestinal symptoms: ??Negative except as documented in HPI, no abdominal pain, no nausea, novomiting, no diarrhea. ?? Genitourinary symptoms: ??Negative except as documented in HPI, no dysuria, no hematuria. ?? Musculoskeletal symptoms: ??Negative except as documented in HPI, No Muscle pain, ?? Neurologic symptoms: ??Negative except as documented in HPI, no headache, no dizziness, no altered level of consciousness, no numbness, no tingling, no weakness. ?? Psychiatric symptoms: ??Negative except as documented in HPI, no anxiety, no depression. ?? Endocrine symptoms: ??No polyuria, no polydipsia, no hyperglycemia. ?? Hematologic/Lymphatic symptoms: ??Bleeding tendency negative, bruising tendency negative. ?? Allergy/immunologic symptoms: ??No seasonal allergies, no food allergies. ?? ROS Info:??All systems reviewed as documented in chart.?Additional review of systems information:??All other systems reviewed and otherwisenegative.?? Objective Vital Signs (24 hrs) Last Charted?? Minimum?? Maximum?? Temp?? L??36.3?? 03/19/2024 16:00?? L??36.3?? 03/19/2024 16:00 ?? L??36.3?? 03/19/2024 16:00?? Heart Rate Monitored?? 60?? 03/19/2024 18:00?? L??59?? 03/19/2024 16:00 ?? 60?? 03/19/2024 18:00?? Resp Rate?? 16?? 03/19/2024 18:00?? 16?? 03/19/2024 16:00 ?? 16?? 03/19/2024 16:00?? SBP?? H??138?? 03/19/2024 18:00?? 120?? 03/19/2024 17:00 ?? H??138?? 03/19/2024 18:00?? DBP?? 64?? 03/19/2024 18:00?? L??29?? 03/19/2024 16:00 ?? 64?? 03/19/2024 18:00?? MAP?? 92?? 03/19/2024 18:00?? 83?? 03/19/2024 17:00 ?? 92?? 03/19/2024 18:00?? SpO2?? 96?? 03/19/2024 17:00?? 96?? 03/19/2024 17:00 ?? 96?? 03/19/2024 17:00? Pain Scores (Last Within 24hrs) Numeric Pain Scale: 0 = No pain (18:00) ? I&O 24 Hour Total? No Data Available ? Physical Exam O2 sats interpreted as normal by me.?? General: ??Alert, no acute distress. ?? Skin: ??Warm, dry, pink. ?? Head: ??Normocephalic.?? Neck: ??Supple, trachea midline, no JVD. ?? Eye: ??Pupils are equal, round and reactive to light, extraocular movements are intact. ?? Ears, nose, mouth and throat: ??Tympanic membranes clear, oral mucosa moist. ?? Cardiovascular: ??Regular rate and rhythm, No murmur, Normal peripheral perfusion, No edema, No cardiac rub, ?? Respiratory: ??Lungs are clear to auscultation, respirations are non-labored, breath sounds are equal. ?? Chest wall: ??No tenderness.?? Musculoskeletal: ??Normal ROM.?? Gastrointestinal: ??Soft, Nontender, Non distended, No Masses/Pulsations/Distensions. ?? Neurological: ??No focal neurological deficit observed, normal speech observed. ?? Psychiatric: ??Cooperative, appropriate mood & affect. ?? Electrocardiogram: ??Time 03/19/2024 17:52:00, rate 60, normal sinus rhythm, The [place] is leftward. ??, QRS interval Low voltage. ??Poor transition. ? Chest X-Ray: ??No acute disease process,?? Reading by radiologist, was reviewed by me. ?? HEART Score ? History: Moderately Suspicious (+1),? EKG: Non specific repolarisation disturbance (+1),? Age: >= 65 [+2],? Risk factors: >= 3 Risk Factors (+2),? Troponin: <= normal limit (0),? Total Heart Score: 6,? Interpretation: Moderate Risk. ? Assessment/Plan Moderate risk chest pain - QYY31-TM R07.9, Medical?? CAD (coronary artery disease) - PGC61-VT I25.10, Medical?? ORLIN on cpap DM A fib on OAC CAD CHF ? 78-year-old male with past medical history of??ORLIN on CPAP, DM,??atrial fibrillation on chronic anticoagulation, coronary artery disease, CHF with??who came to the emergency room with c/o chest pain that was relieved by NTG ?? chest pain- h/o CAD Monitor in telemetry The Troponin was negative but pt was admitted for observation and further evaluation by cardiology f/u Labs continue home meds- aspirin, atorvastatin, metoprolol, nitrates and entresto check echo cardiology consult ? CAD as above ? h/o Afib on OAC continue home meds ? HLD on statin ?? h/o ORLIN on cpap continue Cpap ? DM Continue home meds diabetic diet ? syncope h/o AICD his mg and K were not low CT brain ordered carotid duplex ordered f/u cardioly consult consult- neurology ? supportive care DVT and GI prophylaxis ? Day Team of [facility] will follow until discharge further as per clinical course ?? total time spent is 55 min including history, evaluation, review of labs, EKG,imaging, discussion with the patient and nurse, documentation, and care coordination ?? Histories Allergies Allergies ?(Active and Proposed Allergies Only) adenosine? (Severity: Unknown severity, Onset: Unknown) ?Reactions: Other (See Comments) ?Comments: Outside Source Comment: bronchospasm donepezil? (Severity: Unknown severity, Onset: 08/04/2021) ?Reactions: Unknown ?Comments: Outside Source Comment: Other reaction(s): mild per pcp chart metFORMIN? (Severity: Unknown severity, Onset: 08/04/2021) ?Reactions: Unknown ?Comments: Outside Source Comment: Other reaction(s): per pcp chart--moderate codeine? (Severity: Unknown severity, Onset: Unknown) ?Reactions: [...] Abuse Details:??Denies Tobacco Details:??Denies ? Family History Brother: CABG - Coronary artery bypass graft ? Medications Home Medications amiodarone?200?Milligram?By Mouth?Daily apixaban (apixaban 5 mg oral tablet)?5?Milligram?1?Tabs?By Mouth?2 Times a Day aspirin (aspirin 81 mg oral capsule)?81?Milligram?1?Capsules?By Mouth?Daily atorvastatin?40?Milligram?By Mouth?Daily cholecalciferol (cholecalciferol 50 mcg (2000 intl units) oral capsule)?50?Microgram?1?Capsules?By Mouth?Daily empagliflozin (empagliflozin 25 mg oral tablet)?25?Milligram?1?Tabs?By Mouth?Every AM finasteride (finasteride 5 mg oral tablet)?5?Milligram?1?Tabs?By Mouth?Daily FLUoxetine?20?Milligram?By Mouth?Daily furosemide (furosemide 80 mg oral tablet)?80?Milligram?1?Tabs?By Mouth?Daily levothyroxine?25?Microgram?By Mouth?Daily loratadine?10?Milligram?By Mouth?Daily metoprolol (Metoprolol Succinate ER 100 mg oral tablet, extended release)?100?Milligram?1?Tabs?By Mouth?Daily pantoprazole (pantoprazole 20 mg oral delayed release tablet)?20?Milligram?1?Tabs?ByMouth?Daily rOPINIRole (rOPINIRole 1 mg oral tablet)?1?Milligram?1?Tabs?By Mouth?3 Times a Day sacubitril-valsartan (sacubitril-valsartan 24 mg-26 mg oral tablet)?See Instructions?0.5 TabsOral BID spironolactone (spironolactone 50 mg oral tablet)?50?Milligram?1?Tabs?By Mouth?Daily tamsulosin (tamsulosin 0.4 mg oral capsule)?0.4?Milligram?1?Capsules?By Mouth?Daily ? 72 hour Antibiotic History No qualifying data available... ?? Vaccinations and Immunoprophylaxis COVID-19 Vaccine Status: Fully (> 2 weeks since last dose) (03/19/24 16:42:00) COVID-19 Vaccine Status: Fully (> 2 weeks since last dose) (01/05/24 19:58:00) COVID-19 Vaccine Status: Fully +1 or more [...] (12/17/22 14:34:00) ?? Results Recent Labs Cardiac Troponin TNIH 8.0 ng/L (Normal)?? 03/19/2024 17:01 ?? General Chemistry Glucose Level 98 mg/dL (Normal)?? 03/19/2024 17:01 Sodium 136 mmol/L (Normal)?? 03/19/2024 17:01 Potassium 4.0 mmol/L (Normal)?? 03/19/2024 17:01 Chloride 103 mmol/L (Normal)?? 03/19/2024 17:01 CO2 30 mmol/L (Normal)?? 03/19/2024 17:01 Anion Gap 3 mmol/L (Normal)?? 03/19/2024 17:01 BUN 18 mg/dL (Normal)?? 03/19/2024 17:01 Creatinine 1.2 mg/dL (Normal)?? 03/19/2024 17:01 BUN/Creat Ratio 15.00 Ratio (Normal)?? 03/19/2024 17:01 Calcium 9.7 mg/dL (Normal)?? 03/19/2024 17:01 Albumin. Level 3.9 gm/dL (Normal)?? 03/19/2024 17:01 TP 7.1 gm/dL (Normal)?? 03/19/2024 17:01 T Bili 1.00 mg/dL (Normal)?? 03/19/2024 17:01 Alk Phos 86 Intl_units/L (Normal)?? 03/19/2024 17:01 AST 19 Intl_units/L (Normal)?? 03/19/2024 17:01 ALT 27 Intl_units/L (Normal)?? 03/19/2024 17:01 Mg Lvl 2.5 mg/dL (High)?? 03/19/2024 17:01 Estimated Creatinine Clearance 46.67 mL/min ()?? 03/19/2024 17:37 eGFR Cr 62 mL/min/1.73m2 (N/A)?? 03/19/2024 17:01 eGFR Pediatric Not Reported mL/min/1.73m2 (N/A)?? 03/19/2024 17:01 ?? General Coagulation PT 10.7 Seconds (Normal)?? 03/19/2024 17:01 INR 0.94 (Normal)?? 03/19/2024 17:01 aPTT 29.6 Seconds (Normal)?? 03/19/2024 17:01 ?? General Hematology WBC 7.30 x10e3/mcL (Normal)?? 03/19/2024 17:01 RBC 4.00 x10e6/mcL (Low)?? 03/19/2024 17:01 Hgb 13.60 gm/dL (Low)?? 03/19/2024 17:01 Hct 40.00 % (Normal)?? 03/19/2024 17:01 MCV 100.1 Femtoliters (High)?? 03/19/2024 17:01 MCH 34.10 pg (High)?? 03/19/2024 17:01 MCHC 34.10 gm/dL (Normal)?? 03/19/2024 17:01 RDW-SD 48.60 Femtoliters (High)?? 03/19/2024 17:01 RDW-CV 13.60 % (Normal)?? 03/19/2024 17:01 Plt 212 x10e3/mcL (Normal)?? 03/19/2024 17:01 MPV 8.00 Femtoliters (Normal)?? 03/19/2024 17:01 Neut % Auto 58.2 % (Normal)?? 03/19/2024 17:01 Lymph % Auto 28.1 % (Normal)?? 03/19/2024 17:01 Otero % Auto 10.0 % (Normal)?? 03/19/2024 17:01 Eos % Auto 3.0 % (Normal)?? 03/19/2024 17:01 Baso % Auto 0.7 % (Normal)?? 03/19/2024 17:01 Neut # Auto 4.2 x10e3/mcL (Normal)?? 03/19/2024 17:01 Lymph # Auto 2.0 x10e3/mcL (Normal)?? 03/19/2024 17:01 [place]o # Auto 0.7 x10e3/mcL (Normal)?? 03/19/2024 17:01 Eos # Auto 0.2 x10e3/mcL (Normal)?? 03/19/2024 17:01 Baso # Auto 0.1 x10e3/mcL (Normal)?? 03/19/2024 17:01 ? CBC, BMP, Coagulation Trend (last 4 resulted) WBC 7.30 ?? 03/19/2024 ??17:01 ? Hgb 13.60 ??L?? 03/19/2024 ??17:01 ? Hct 40.00 ?? 03/19/2024 ??17:01 ? Baso # Auto 0.1 ?? 03/19/2024 ??17:01 ? Baso % Auto 0.7 ?? 03/19/2024 ??17:01 ? Eos # Auto 0.2 ?? 03/19/2024 ??17:01 ? Eos % Auto 3.0 ?? 03/19/2024 ??17:01 ? Lymph # Auto 2.0 ?? 03/19/2024 ??17:01 ? Lymph % Auto 28.1 ?? 03/19/2024 ??17:01 ? [place]tero # Auto 0.7 ?? 03/19/2024 ??17:01 ? [place]tero % Auto 10.0 ?? 03/19/2024 ??17:01 ? Neut # Auto 4.2 ?? 03/19/2024 ??17:01 ? Neut % Auto 58.2 ?? 03/19/2024 ??17:01 ? Plt 212 ?? 03/19/2024 ??17:01 ? Glucose Level 98 ?? 03/19/2024 ??17:01 ? Sodium 136 ?? 03/19/2024 ??17:01 ? Potassium 4.0 ?? 03/19/2024 ??17:01 ? Chloride 103 ?? 03/19/2024 ??17:01 ? CO2 30 ?? 03/19/2024 ??17:01 ? BUN 18 ?? 03/19/2024 ??17:01 ? Creatinine 1.2 ?? 03/19/2024 ??17:01 ? BUN/Creat Ratio 15.00 ?? 03/19/2024 ??17:01 ? Mg Lvl 2.5 ??H?? 03/19/2024 ??17:01 ? Calcium 9.7 ?? 03/19/2024 ??17:01 ? Albumin. Level 3.9 ?? 03/19/2024 ??17:01 ? T Bili 1.00 ?? 03/19/2024 ??17:01 ? Alk Phos 86 ?? 03/19/2024 ??17:01 ? AST 19 ?? 03/19/2024 ??17:01 ? ALT 27 ?? 03/19/2024 ??17:01 ? aPTT 29.6 ?? 03/19/2024 ??17:01 ? PT 10.7 ?? 03/19/2024 ??17:01 ? INR 0.94 ?? 03/19/2024 ??17:01 ? CBC (Last Within 24hrs) WBC: 7.3 x10e3/mcL (17:01) Hgb:??13.6 gm/dL??Low (17:01) Hct: 40 % (17:01) Plt: 212 x10e3/mcL (17:01) ?? Differential (Last Within 24hrs)?? - Automated -?? Neut % Auto: 58.2 % (17:01) Lymph % Auto: 28.1 % (17:01) Otero % Auto: 10 % (17:01) Eos % Auto: 3 % (17:01) Baso % Auto: 0.7 % (17:01) Neut # Auto: 4.2 x10e3/mcL (17:01) Lymph # Auto: 2 x10e3/mcL (17:01) [place] # Auto: 0.7 x10e3/mcL (17:01) Eos # Auto: 0.2 x10e3/mcL (17:01) Baso # Auto: 0.1 x10e3/mcL (17:01) ? BMP, Mg, and Phos (Last Within 24hrs) Sodium: 136 mmol/L (17:01) Potassium: 4 mmol/L (17:01) Chloride: 103 mmol/L (17:01) CO2: 30 mmol/L (17:01) BUN: 18 mg/dL (17:01) Creatinine: 1.2 mg/dL (17:01) Glucose Level: 98 mg/dL (17:01) Calcium: 9.7 mg/dL (17:01) Mg Lvl:??2.5 mg/dL??High (17:01) ?? Coagulation Profile (Last Within 24hrs) INR: 0.94 (17:01) PT: 10.7 Seconds (17:01) ?? LFT (Last Within 24hrs) AST: 19 Intl_units/L (17:01) ALT: 27 Intl_units/L (17:01) Alk Phos: 86 Intl_units/L (17:01) T Bili: 1 mg/dL (17:01) TP: 7.1 gm/dL (17:01) Albumin. Level: 3.9 gm/dL (17:01) ? Cardiology Labs Troponin TNIH: 8 ng/L (03/19/24 17:01:00) ? Electronically Signed By: Yandel Segovia MD On: 03.20.2024 05:07 CDT Electronically Signed On: 03.20.2024 05:36 CDT Yandel Segovia MD Patient Care team information Care Team Personnel Name: [facility] MD Member Role: Primary Care Physician Address: Address: [address] [place] [phone] [facility] Name: Danielle Olivia RN Position: RN Member Role: Nursing Care Team Related Persons Name: DULCE FAN Address: Home [address] [place] [address] [address]UD [address] [phone]
--- OUTSIDE RECORDS SUMMARY | 2024-05-21 20:39 | XMS_ITS | Continuity of Care Document ---
Author Name Unknown Organization [facility] Address [address] [place] [address]- Care Team Providers Care Life Agent Name Role Phone No pcp no family, Doctor Primary Care Physician Encounter [facility] [id number] Date(s): 01/02/23 - 01/05/23 [facility] [address] [facility] [phone] [place] [address] [facility] Encounter Diagnosis Dyspnea on exertion(Discharge Diagnosis) - 01/02/23 Atrial fibrillation with RVR(Discharge Diagnosis) - 01/02/23 Discharge Disposition: Routine to Home Attending Physician: Margi Plummer MD Admitting Physician: Margi Plummer MD Referring Physician: No referring, Doctor Reason for Visit A FIB W/ RVR DYSPNEA ON EXERTI Allergies, Adverse Reactions, Alerts Substance Reaction Severity Status codeine hives Active penicillin hives Active Assessment and Plan Extracted from: Title:Progress/SOAP Note Author:Ashutosh Church MD Date:01/05/23 Diagnoses ?? 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 Plan : ?on room air PO2 was 67??, O2 saturation with up ambulation??above 92 no need for home oxygen CPAP??12 cm H2O nighttime and as needed??daytime Continue??carvedilol and diuretics and follow nephrology recommendations bronchodilators only on as needed basis albuterol 1.25 mg every 8 hours Continue??DVT prophylaxis with Lovenox Discharge planning as per primary ? Medications amiodarone (amiodarone 200 m g oral tablet) Status: Ordered Start Date: 01/05/23 1 Tabs By Mouth Daily. Refills: 0. Ordering provider: Thaddeus MODI, [facility] [id number] [place] [phone] apixaban (apixaban 5 mg oral tablet) Status: Ordered Start Date: 01/05/23 1 Tabs By Mouth 2 Times a Day. Refills: 0. Ordering provider: Thaddeus MDOI, [facility] [address] [facility] [place] [address] [phone] ascorbic acid (Vitamin C 500 mg oral capsule) Status: Ordered Start Date: 12/17/22 1 Capsules By Mouth 2 Times a Day. aspirin (aspirin 81 mg oral tablet, chewable) Status: Ordered Start Date: 01/02/23 1 Tabs Chewed Daily. atorvastatin (atorvastatin 4 0 mg oral tablet) Status: Ordered Start Date: 01/02/23 1 Tabs By Mouth at Bedtime. carvedilol (carvedilol 6.25 mg oral tablet) Status: Ordered Start Date: 12/17/22 1 Tabs By Mouth 2 Times a Day. clopidogrel (Plavix 75 mg or al tablet) Status: Ordered Start Date: 12/17/22 1 Tabs By Mouth Daily. cyanocobalamin (cyanocobalam in 1000 mcg/mL injectable solution) Status: Ordered Start Date: 01/02/23 1,000 Microgram Intramuscular Every Sunday. cyclobenzaprine (cyclobenzap rine 10 mg oral tablet) Status: Ordered Start Date: 12/17/22 1 Tabs By Mouth at Bedtime. docusate (docusate sodium 10 0 mg oral capsule) Status: Ordered Start Date: 01/05/23 1 Capsules By Mouth 2 Times a Day. Refills: 0. Ordering provider: Thaddeus MODI, [facility] [id number] [place] [address] [phone] famotidine (famotidine 20 mg oral tablet) Status: Ordered Start Date: 01/05/23 1 Tabs By Mouth 2 Times a Day. Refills: 0. Ordering provider: Thaddeus MODI, [facility] [id number] [place], [place] [phone] finasteride (Proscar 5 mg or al tablet) Status: Ordered Start Date: 12/17/22 1 Tabs By Mouth Daily. FLUoxetine (PROzac 20 mg ora l capsule) Status: Ordered Start Date: 12/17/22 1 Capsules By Mouth Daily. furosemide (Lasix 80 mg oral tablet) Status: Ordered Start Date: 12/17/22 1 Tabs By Mouth Daily. levothyroxine (Synthroid 25 mcg [...] sugar over 200. metoprolol (Metoprolol Succi abby ER) Status: Ordered Start Date: 01/05/23 multivitamin with minerals ( Centrum Silver oral tablet) Status: Ordered Start Date: 12/17/22 1 Tabs By Mouth 2 Times a Day. pantoprazole (Protonix 20 mg oral enteric coated tablet) Status: Ordered Start Date: 12/17/22 1 Tabs By Mouth Daily. saw palmetto (saw palmetto 4 50 mg oral capsule) Status: Ordered Start Date: 12/17/22 1 Each By Mouth 2 Times a Day. tamsulosin (Flomax 0.4 mg or al capsule) Status: Ordered Start Date: 12/17/22 1 Capsules By Mouth 2 Times a Day. Problem List Condition Confirmation Course Effective Dates Status Health [facility] Informant COPD (chronic obstructive pulmonary disease) Confirmed Active CHF (congestive heart failure) Confirmed Active Diabetes Confirmed Active Hyperlipemia Confirmed Active HTN (hypertension) Confirmed Active Procedures Procedure Date Related Diagnosis Body Site Status Collection of venous blood b y venipuncture 01/05/23 Completed Arterial puncture, withdrawa l of blood for diagnosis 01/04/23 Completed Collection of venous blood b y venipuncture 01/03/23 Completed Arterial puncture, withdrawa l of blood for diagnosis 01/02/23 Completed Collection of venous blood b y venipuncture 01/02/23 Completed Results Laboratory List Name Date Hepatic/Liver Function Panel (Liver Func tion Test) 01/05/23 POC Glucose 01/05/23 Basic Metabolic Panel (BMP) 01/05/23 CBC no Diff 01/05/23 POC Glucose 01/05/23 POC Glucose 01/04/23 ABG+Lytes+COox+Lactate 01/04/23 D Dimer Ultrasensitive 01/03/23 B Type Natriuretic Peptide (BNP) 01/03/23 Basic Metabolic Panel (BMP) 01/03/23 Magnesium Level 01/03/23 ABG+Lytes+COox+Lactate 01/02/23 Troponin +1hr 01/02/23 Respiratory Panel PCR 01/02/23 Auto Diff 01/02/23 B Type Natriuretic Peptide 01/02/23 Basic Metabolic Panel 01/02/23 CBC with Diff 01/02/23 Magnesium Level 01/02/23 T4 Free 01/02/23 TSH 01/02/23 Troponin (TNIH) (Troponin ED (STAT, +1hr , +3hr)) 01/02/23 01/05/23 Test Result Reference Range Specimen Source [facility] WBC 9.30 x10e3/mcL (Normal is 4.30-11.00 x10e3/mcL) Blood [facility] RBC 3.94 x10e6/mcL (Normal is 4.60- 6.20 x10e6/mcL) Blood [facility] Hgb 13.10 gm/dL (Normal is 14.00-18.00 gm/dL) Blood [facility] Hct 38.20 % (Normal is 40.00-54.00 %) Blood [facility] MCV 96.9 Femtoliters (Normal is 80.0-100.0 Femtoliters) Blood [facility] MCH 33.30 pg (Normal is 26.00-33.00 pg) Blood [facility] MCHC 34.30 gm/dL (Normal is 31.00-36.00 gm/dL) Blood [facility] RDW-CV 14.40 % (Normal is 11.00-17.00 %) Blood [facility] RDW-SD 49.40 Femtoliters (Normal is 36.50-45.90 Femtoliters) Blood [facility] Plt 168 x10e3/mcL (Normal is 150-3 75 x10e3/mcL) Blood [facility] MPV 8.40 Femtoliters (Normal is 7.40-11.40 Femtoliters) Blood [facility] Glucose Level 156 mg/dL (Normal is 74-10 6 mg/dL) Blood [facility] POC Glucose 153 mg/dL (Normal is 70-10 5 mg/dL) Blood [facility] POC Glucose 150 mg/dL (Normal is 70-10 5 mg/dL) Blood [facility] Sodium 137 mmol/L (Normal is 136-1 45 mmol/L) Blood [facility] Potassium 3.1 mmol/L (Normal is 3.5-5 .1 mmol/L) Blood [facility] Chloride 103 mmol/L (Normal is 98-10 7 mmol/L) Blood [facility] CO2 30 mmol/L (Normal is 21-32 mmol/L) Blood [facility] Anion Gap 4 mmol/L (Normal is 3-11 mmol/L) Blood [facility] BUN 18 mg/dL (Normal is 7-18 mg/dL) Blood [facility] Creatinine 1.1 mg/dL (Normal is 0.6-1 .3 mg/dL) Blood [facility] BUN/Creat Ratio 16.36 Ratio (Normal is 6.00-22.00 Ratio) Blood [facility] Calcium 9.0 mg/dL (Normal is 8.5-1 0.0 mg/dL) Blood [facility] Albumin. Level 3.5 gm/dL (Normal is 3.4-5 .0 gm/dL) Blood [facility] TP 6.7 gm/dL (Normal is 6.4-8 .2 gm/dL) Blood [facility] T Bili 1.70 mg/dL (Normal is 0.20- 1.00 mg/dL) Blood [facility] D Bili 0.40 mg/dL (Normal is 0.00- 0.20 mg/dL) Blood [facility] I Bili 1.30 mg/dL (Normal is 0.20- 1.20 mg/dL) Blood [facility] Alk Phos 88 Intl_units/L (Normal is 45-11 7 Intl_units/L) Blood [facility] AST 19 Intl_units/L (Normal is 15-37 Intl_units/L) Blood [facility] ALT 23 Intl_units/L (Normal is 12-78 Intl_units/L) Blood [facility] eGFR Cr 69 mL/min/1.73m2 Blood eGFR Pediatric Not Reported mL/min/1.73m2 1 (Normal is >=75 mL/min/1.73m2) Blood LD 152 Blood 01/04/23 Test Result Reference Range Specimen Source Labo ratory POC Glucose 145 mg/dL (Normal is 70-10 5 mg/dL) Blood [facility] Arterial Glucose 156 mg/dL (Normal is 74-1 06 mg/dL) Arterial Blood [facility] Art Na 139 mmol/L (Normal is 136-1 45 mmol/L) Arterial Blood [facility] Art K 3.2 mmol/L (Normal is 3.5-5 .1 mmol/L) Arterial Blood [facility] Art iCa 1.3 mmol/L (Normal is 1.0-1 .2 mmol/L) Arterial Blood [facility] pH Arterial 7.440 (Normal is 7.350-7.450) Arterial Bl ood [facility] Art pCO2 45.8 mmHg (Normal is 35.0- 45.0 mmHg) Arterial Blood [facility] Art pO2 69.6 mmHg (Normal is 80.0- 100.0 mmHg) Arterial Blood [facility] Art TempC,pH 7.440 Arterial Blood [facility] Art TempC,PCO2 45.8 mmHg Arterial Blood [facility] La b Art TempC,PO2 69.6 mmHg Arterial Blood [facility] Lab Art HCO3 29.8 mmol/L (Normal is 22.0- 28.0 mmol/L) Arterial Blood [facility] Art Base Excess 6.0 mmol/L (Normal is -2.0- 2.0 mmol/L) Arterial Blood [facility] Lab Art sO2 94 % (Normal is 94-100 %) Arterial Blood [facility] Art tHB 12.7 gm/dL (Normal is 14.0- 18.0 gm/dL) Arterial Blood [facility] Lab Art O2 Hb 92 % (Normal is 94-98 %) Arterial Blood [facility] Art Carboxyhemoglobin 1.5 % (Normal is 0.5-1.5 %) Art erial Blood [facility] Lab Art Methemoglobin 0.3 % (Normal is 0.0-1.5 %) Arteria l Blood [facility] Lab POC Juan Antonio Test POS Arterial Blood [facility] La b POC Del Sys ROOM AIR Arterial Blood [facility] Lab POC FIO2 21 % Arterial Blood [facility] POC Pt Temp 37.0 DegC Arterial Blood [facility] POC Site Radial Left Arterial Blood [facility] POC Sample Arterial Arterial Blood [facility] Lab POC Vent Mode NO VENT Arterial Blood [facility] Lab Art Hct 39.1 % (Normal is 40.0-54.0 %) Arterial Blo od [facility] Lab Art Lactate 1.3 mmol/L (Normal is 0.4-2 .0 mmol/L) Arterial Blood [facility] Lab Notified By [id number] Arterial Blood [facility] Notified To and MELIZA CUETO RN Arterial Blood [facility] Notified Note ROOM AIR ABG Arterial Blood [facility] L ab Vending Machine Assembler ID [id number] Arterial Blood [facility] 01/03/23 Test Result Reference Range Specimen Source Pura albarado DDimer ULT 406 ng/mL FEU (Normal is 0-499 ng/mL FEU) Blood [facility] Glucose Level 152 mg/dL (Normal is 74-10 6 mg/dL) Blood [facility] Sodium 137 mmol/L (Normal is 136-1 45 mmol/L) Blood [facility] Potassium 3.5 mmol/L (Normal is 3.5-5 .1 mmol/L) Blood [facility] Chloride 103 mmol/L (Normal is 98-10 7 mmol/L) Blood [facility] CO2 30 mmol/L (Normal is 21-32 mmol/L) Blood [facility] Anion Gap 4 mmol/L (Normal is 3-11 mmol/L) Blood [facility] BUN 24 mg/dL (Normal is 7-18 mg/dL) Blood [facility] Creatinine 1.1 mg/dL (Normal is 0.6-1 .3 mg/dL) Blood [facility] BUN/Creat Ratio 21.82 Ratio (Normal is 6.00-22.00 Ratio) Blood [facility] Calcium 8.9 mg/dL (Normal is 8.5-1 0.0 mg/dL) Blood [facility] Mg Lvl 2.0 mg/dL (Normal is 1.8-2 .4 mg/dL) Blood [facility] Estimated Creatinine Clearance 49.94 mL/min 2 eGFR Cr 69 mL/min/1.73m2 Blood eGFR Pediatric Not Reported mL/min/1.73m2 3 (Normal is >=75 mL/min/1.73m2) Blood BNP 249.0 pg/mL (Normal is 0.0-100.0 pg/mL) Blood [facility] 01/02/23 Test Result Reference Range Specimen Source Pura albarado WBC 7.50 x10e3/mcL (Normal is 4.30-11.00 x10e3/mcL) Blood [facility] RBC 4.08 x10e6/mcL (Normal is 4.60-6.20 x10e6/mcL) Blood [facility] Hgb 13.40 gm/dL (Normal is 14.00-18.00 gm/dL) Blood [facility] Hct 39.30 % (Normal is 40.00-54.00 %) Blood [facility] MCV 96.5 Femtoliters (Normal is 80.0-100.0 Femtoliters) Blood [facility] MCH 32.90 pg (Normal is 26.00-33.00 pg) Blood [facility] MCHC 34.10 gm/dL (Normal is 31.00-36.00 gm/dL) Blood [facility] RDW-CV 14.30 % (Normal is 11.00-17.00 %) Blood [facility] RDW-SD 49.40 Femtoliters (Normal is 36.50-45.90 Femtoliters) Blood [facility] Plt 198 x10e3/mcL (Normal is 150-375 x10e3/mcL) Blood [facility] MPV 8.40 Femtoliters (Normal is 7.40-11.40 Femtoliters) Blood [facility] NRBC % 0 % (Normal is 0-1 %) Blood [facility] Neut % Auto 61.3 % (Normal is 40.0-70.0 %) Blood [facility] Lymph % Auto 25.9 % (Normal is 25.0-40.0 %) Blood [facility] [place] % Auto 9.8 % (Normal is 0.0-14.0 %) Blood [facility] Eos % Auto 2.5 % (Normal is 0.0-6.0 %) Blood [facility] Baso % Auto 0.5 % (Normal is 0.0-2.0 %) Blood [facility] Neut # Auto 4.6 x10e3/mcL (Normal is 2.0-11.0 x10e3/mcL) Blood [facility] Lymph # Auto 1.9 x10e3/mcL (Normal is 1.3-4.4 x10e3/mcL) Blood [facility] [place] # Auto 0.7 x10e3/mcL (Normal is 0.0-1.4 x10e3/mcL) Blood [facility] Eos # Auto 0.2 x10e3/mcL (Normal is 0.0-0.5 x10e3/mcL) Blood [facility] Baso # Auto 0.0 x10e3/mcL (Normal is 0.0-0.2 x10e3/mcL) Blood [facility] Glucose Level 125 mg/dL (Normal is 74-106 mg/dL) Blood [facility] Arterial Glucose 134 mg/dL (Normal is 74-106 mg/dL) Arterial Blood [facility] Sodium 143 mmol/L (Normal is 136-145 mmol/L) Blood [facility] Art Na 142 mmol/L (Normal is 136-145 mmol/L) Arterial Blood [facility] Potassium 3.8 mmol/L (Normal is 3.5-5.1 mmol/L) Blood [facility] Lab Art K 3.6 mmol/L (Normal is 3.5-5.1 mmol/L) Arterial Blood [facility] Chloride 105 mmol/L (Normal is 98-107 mmol/L) Blood [facility] Lab CO2 31.2 mmol/L (Normal is 20.0-31.0 mmol/L) Blood [facility] Anion Gap 7 mmol/L (Normal is 3-11 mmol/L) Blood [facility] BUN 22 mg/dL (Normal is 9-23 mg/dL) Blood [facility] Creatinine 0.97 mg/dL (Normal is 0.60-1.30 mg/dL) Blood [facility] BUN/Creat Ratio 22.68 Ratio (Normal is 6.00-22.00 Ratio) Blood [facility] Calcium 8.7 mg/dL (Normal is 8.5-10.0 mg/dL) Blood [facility] Lab Art iCa 1.1 mmol/L (Normal is 1.0-1.2 mmol/L) Arterial Blood [facility] Mg Lvl 1.9 mg/dL (Normal is 1.8-2.4 mg/dL) Blood [facility] Lab Estimated Creatinine Clearance 56.64 mL/min 4 eGFR Cr 80 mL/min/1.73m2 5 Blood eGFR Pediatric Not Reported mL/min/1.73m2 6 (Normal is >=75 mL/min/1.73m2) Blood BNP 407.0 pg/mL (Normal is 0.0-100.0 pg/mL) Blood [facility] Lab Troponin TNIH 18.36 ng/L (Normal is 0.00-53.48 ng/L) Blood [facility] Lab Troponin TNIH 17.99 ng/L (Normal is 0.00-53.48 ng/L) Blood [facility] T4 Free 0.86 ng/dL (Normal is 0.89-1.76 ng/dL) Blood [facility] Lab TSH 4.543 mc Intl units/mL (Normal is 0.550-4.780 mc Intl units/mL) Blood [facility] Lab pH Arterial 7.429 (Normal is 7.350-7.450) Arterial Blood [facility] Lab Art pCO2 48.4 mmHg (Normal is 35.0-45.0 mmHg) Arterial Blood [facility] Lab Art pO2 108.0 mmHg (Normal is 80.0-100.0 mmHg) Arterial Blood [facility] Lab Art TempC,pH 7.429 Arterial Blood [facility] Lab Art TempC,PCO2 48.4 mmHg Arterial Blood [facility] La b Art TempC,PO2 108.0 mmHg Arterial Blood [facility] Lab Art HCO3 30.4 mmol/L (Normal is 22.0-28.0 mmol/L) Arterial Blood [facility] Lab Art Base Excess 6.5 mmol/L (Normal is -2.0-2.0 mmol/L) Arterial Blood [facility] Lab Art sO2 99 % (Normal is 94-100 %) Arterial Blood [facility] Lab Art tHB 12.6 gm/dL (Normal is 14.0-18.0 gm/dL) Arterial Blood [facility] Lab Art O2 Hb 97 % (Normal is 94-98 %) Arterial Blood [facility] Lab Art Carboxyhemoglobin 1.5 % (Normal is 0.5-1.5 %) Arterial Blood [facility] Lab Art Methemoglobin 0.6 % (Normal is 0.0-1.5 %) Arterial Blood [facility] Lab POC Juan Antonio Test POS Arterial Blood [facility] La b POC Del Sys ROOM AIR Arterial Blood [facility] Lab POC FIO2 21 % Arterial Blood [facility] Lab POC Pt Temp 37.0 DegC Arterial Blood [facility] Lab POC Site Radial Left Arterial Blood [facility] Lab POC Sample Arterial Arterial Blood [facility] Lab POC Vent Mode NO VENT Arterial Blood [facility] Lab Art Hct 38.6 % (Normal is 40.0-54.0 %) Arterial Blood [facility] Lab Art Lactate 1.2 mmol/L (Normal is 0.4-2.0 mmol/L) Arterial Blood [facility] Lab Vending Machine Assembler ID [id number] Arterial Blood [facility] Lab Influenza A Not Detected (Normal is Not Detected) Nasopharyngeal [facility] Influenza B Not Detected (Normal is Not Detected) Nasopharyngeal [facility] RSV Not Detected (Normal is Not Detected) Nasopharyngeal [facility] Reason for Testing Diagnostic Nasopharyngeal SARS-CoV-2 Not Detected (Normal is Not Detected) Nasopharyngeal [facility] Suspect COVID? Yes Nasopharyngeal Symptomatic as defined by CDC? Yes Nasopharyngeal Hospitalized due to COVID? None Nasopharyngeal In ICU? None Nasopharyngeal status? Not Nasopharyngeal Employed in healthcare? None Nasopharynge al Group care resident? No Nasopharyngeal 1Result Comment: Not reported for adult patients ( > 18 years old ). 2Result Comment: Calculated using method: Cockroft-Gault 3Result Comment: Not reported for adult patients ( > 18 years old ). 4Result Comment: Calculated using method: Cockroft-Gault 5Result Comment: No previous creatinine in the last 72 hours; eGFR may not be reflective of the patient???s kidney function if creatinine is rapidly changing. 6Result Comment: Not reported for adult patients ( > 18 years old ). Laboratory Information [facility] Lab CLIA Number: [id number] [address] Lab CLIA Number: [id number] [address] Lab CLIA Number: [id number] [address] Lab CLIA Number: [id number] [address] Lab CLIA Number: [id number] [address] Lab CLIA Number: [id number] [address] Lab CLIA Number: [id number] [address] [address] Vital Signs 01/05/23 Temperature (Route Not Specified) 36.2 DegC*LOW* (Normal is 36.5-37.3 DegC) Peripheral Pulse Rate 88 bpm (Normal is 60-100 bpm) Respiratory Rate 18 br/min (Normal is 12-2 0 br/min) Blood Pressure 100/65mmHg (Normal is 90-13 5/60-80 mmHg) 01/04/23 Weight 95.1 kg 01/02/23 Height 167.64 cm Social History Social History Type Response Tobacco Denies Smoking Status Former smoker Sex Male Hospital Discharge Instructions Patient Education 01/05/2023 13:54:33 Having Electrical Cardioversion Having Electrical Cardioversion Cardioversion is a procedure that is done to return your heartbeat to a normal rhythm. It???s done when the heart is beating very fast or irregular. This is called an arrhythmia. During the procedure, an energy shock is sent to the heart to reset it to a normal rhythm. This is done with a small machine that sends electric shocks to electrode pads on your chest.?? Cardioversion is most often a scheduled procedure. But in some cases, it may be done as an emergency treatment. This is done if symptoms are severe. You will be given medicine to let you sleep through the procedure. What to tell your healthcare provider Tell your healthcare provider about all the medicines you take. This includes [id number]-gaffzng medicines such as ibuprofen. It also includes vitamins, herbs, and other supplements, and any recreational drug use. Tests before your procedure You may need blood tests before the procedure. These make sure the procedure is safe for you. Bloodtests can also help find causes for irregular heart rhythms, such as abnormal levels of electrolytes or thyroid hormones. A cardioversion may not work if you have conditions that cause abnormal test results. You may also have a transesophageal echocardiography test before the procedure. This test is a special kind of ultrasound. A thin, flexible tube is put down your throat and into your esophagus. There, the tube is close to your heart. It lets your healthcare provider see if you have any blood clots.Your cardioversion will be delayed if a clot is found. Getting ready for your procedure Talk with your healthcare provider about how to get ready for your procedure. Follow his or her instructions about what medicines to take before the procedure. This includes medicines that may prevent arrhythmias. Don???t stop taking any medicine unless your healthcare provider tells you to do so. You???ll be at a higher risk for blood clots, so your healthcare provider may want you to take blood thinner medicine. You may take this medicine several weeks before and after the procedure. Make sure to: ???Ask a responsible adult family member or friend to take you home from the hospital. You cannot drive yourself. ???Follow any instructions from your healthcare provider about not eating or drinking before your surgery. ???Remove any jewelry that goes around your neck or is on your chest. ???Follow all other instructions from your healthcare provider. You will be asked to sign a consent form that gives your permission to do the procedure. Read the form carefully. Ask questions if something is not clear. On the day of your procedure Ask your healthcare provider about the details of your procedure. The procedure only takes a few minutes. It may be different when done as an emergency treatment. In general, you can expect the following: ???The healthcare provider will stick soft electrode pads on your chest. He or she may also put them on your back. These areas of skin may be shaved. This is to help the electrode pads stick. ???The healthcare provider will attach wires to the electrodes. The wires connect to a cardioversion machine. ???You will get medicine through a vein in your arm. This is to make you fall asleep. ???The cardioversion machine sends an energy shock to your heart. This should convert your heart back to a normal rhythm. You won???t feel any pain. ???Your healthcare team will closely watch your heart rhythm. They will watch for any signs of problems. ???When the procedure is done, you will wake up. After your procedure You will wake up 5 to 10 minutes after the procedure. You???ll be closely watched for signs of problems for several hours. You will likely go home the same day. You may feel sleepy for several hours because of the sedation. Your healthcare team will make sure it is safe for you to eat and drink andstand before you are able to go home. You will need to have a family member or friend drive you home. Your chest may be red or sore for a few days. You may need to take blood thinner medicine, such as warfarin, for several weeks after the procedure. Take this exactly as directed. You may also need to take a medicine to prevent arrhythmias. Take all your medicines exactly as directed. Follow-up care Follow up with your healthcare provider, or as advised.?? When to call your healthcare provider Call your healthcare provider right away if you have skipped heartbeats or a rapid heartbeat. Call 911 or get medical care right away at the nearest emergency department if any of these: ???Trouble breathing or chest pain ???Dizziness ???Fainting ???Uncontrolled bleeding while taking blood thinner medicines ?? 6496-1406 [employer]. All rights reserved. This information is not intended as a substitute for professional medical care. Always follow your healthcare professional's instructions. 01/05/2023 13:54:28 Discharge Instructions for Cardioversion(CUSTOM) 01/05/2023 13:53:50 Understanding Atrial Fibrillation Understanding Atrial Fibrillation An [...] treatment, or get worse ???New symptoms ?? 8411-0276 [employer]. All rights reserved. This information is not intended as a substitute for professional medical care. Always follow your healthcare professional's instructions. 01/05/2023 13:53:44 Identifying Your Heart Risks Identifying Your Heart Risks What are your risk factors? A risk factor increases your chance of having heart disease. Some risk factors can???t be controlled. These include your age or family history of heart disease. But most others can be managed by making lifestyle changes and taking medicine. For each risk factor you reduce, your chance of heart attack and stroke goes down. And the length and quality of life may go up. You can make changes to manage the following risk factors. Abnormal cholesterol levels Abnormal levels of cholesterol can increase your risk of developing atherosclerotic cardiovascular disease (ASCVD), which can lead to a heart, stroke, or other problems. If your cholesterol levels are of concern, your healthcare provider will work with you to improve your cholesterol level. Lifestyle changes such as diet, exercise, and weight management can help improve your cholesterol level, but you may also need medicine. High blood pressure High blood pressure (hypertension) occurs when blood pushes too hard against artery root as it flows through them. This damages the artery lining. In general, you???re at risk if you have: ???Blood pressure of 120/80 or higher. Your doctor may prescribe a personal goal. ???Blood pressure of 130/80 is high blood pressure. Smoking This is the most important risk factor you can change. Smoking damages arteries and makes it easierfor plaque to build up. Smokers are also at higher risk for blood clots (which can block arteries) and stroke. You???re at risk if you use any kind of tobacco or nicotine. This means: ???Cigarettes ???E-cigarettes ???Chew tobacco ???Cigars ???Pipe Diabetes This health problem leads to a high level of sugar in your blood. It can damage the arteries if notkept under control. Diabetes makes you more likely to have a silent heart attack (one without symptoms). You???re at risk if: ???Your A1C is between 5.7 and 6.4. Once it reaches 6.5, you have diabetes. Your healthcare provider will help you figure out what your A1C should be. Your target number will depend on your age, general health, and other factors. Your treatment plan may need changes if your current number is too high. Excess weight Being overweight makes other risk factors, such as high blood pressure and diabetes, more likely. Excess weight around the waist or stomach increases your heart disease risk the most. You???re at risk if your: ???Waist circumference is more than 35 inches (women) or 40 inches (men). ???Body mass index (BMI) is greater than 25. Lack of physical activity If you???re not active, problems with diabetes, blood pressure, cholesterol, and weight are more likely. You???re at risk if: ???You exercise less than 40 minutes per day, on fewer than??3 to 4??days a week. Stress and strong emotions Stressful events and feelings can raise heart rate and blood pressure. Stress can also bring on feelings of depression, anxiety, and anger. These feelings do not directly lead to heart disease, but they do affect overall health and make quality of life worse. Unhealthy Diet Diets high in saturated fats, trans fat, and cholesterol have been linked to heart disease and coronary artery disease. Eating a healthy diet of fruits, legumes, vegetables, whole grains, nuts, lean fish or lean animal protein is a way to replace eating less healthy foods. By cutting back on saturated fat and trans fat, you can lower your LDL (bad) cholesterol and triglyceride levels. LDL is one of the primary substances that causes heart attacks. You can stay away from most trans fatty acids by eating less margarine and fewer cookies, crackers, fries, doughnuts, and other snack foods that contain partially hydrogenated oils. Drinking too much alcohol can raise blood pressure levels and the risk for heart disease. It also increases levels of triglycerides. ?? 9818-1816 [employer]. All rights reserved. This information is not intended as a substitute for professional medical care. Always follow your healthcare professional's instructions. 01/05/2023 13:53:15 Asthma and COPD Asthma and COPD Some people have more than one health problem at one time. If you have COPD (chronic obstructive pulmonary disease), you may also have asthma. These two health conditions are considered separate disorders. A person can have both. COPD and asthma have been linked to: ???People who smoke ???Heavy smokers who carry genes that cause an allergic inflammatory response after an irritant is breathed in When a person has both COPD and asthma, both diseases need to be treated. Cigarette smoking is the main cause of COPD. Two main conditions of COPD are emphysema and chronic bronchitis. The lungs and airways are damaged in both conditions. The damage is most often caused bybreathing in irritants over a long time. Because of this, air doesn???t flow normally through the airways in the lungs. The tubes that carry air in and out of your lungs (airways) can get blocked or collapse. This can cause symptoms that are much the same as asthma. These include shortness of breath, wheezing, chest tightness, and coughing. Asthma is also an ongoing health problem that affects the airways in your lungs. It most often starts in childhood. But it can affect people of all ages. With asthma, the airways become inflamed and narrowed. The muscles around the airways tighten. This makes it hard for air to pass through the airways. If you have asthma, these airways are extra sensitive to things you are allergic to (allergens). These might be tobacco smoke, air pollutants, and sometimes exercise. These are called triggers. Even when the lining of your airways are swollen or inflamed, you may not feel symptoms. When you do feel symptoms, your airways may be extra inflamed. You may even have an asthma attack. This is when your airways close so tightly that air can???t get in and out. A moderate asthma flare-up can cause problems breathing. But a severe asthma flare-up or attack sends you to the hospital. Always referto your Asthma Action Plan. It's important to stay away from your triggers to improve these symptoms and help control your asthma. How does asthma raise your risk for COPD? Not everyone who has asthma will develop COPD. But you may be more likely to have COPD later in life if you have asthma. Asthma can harm the airways in your lungs. Over time, chronic mild inflammation can scar the airways. You can have lifelong (permanent) breathing problems. Because of this, the chances of COPD may increase. If you have COPD symptoms, ask to see a doctor who specializes in allergies (called an laboratory chemical assistant). Symptoms Many COPD symptoms are the same as asthma symptoms. It can be hard to tell which condition is causing them. Here are some of the most common symptoms of both conditions: ???Frequent coughing ???A whistling noise, especially when breathing in or out (wheezing) ???Chest tightness ???Trouble breathing ???Shortness of breath during activities ???Feeling tired ???Low energy during physical activities Treatment Both asthma and COPD are ongoing health problems. But there is no cure for asthma or COPD. Treatment plans vary for each person diagnosed with COPD and asthma. Your healthcare providers and allergistwill work with you to make a treatment plan. Your treatment plan may include: ???Taking medicine. Medicines help treat the symptoms of both COPD and asthma. They can also lower your chances for serious breathing problems. They can help keep you out of the hospital. Take your medicines every day as directed. If you have asthma, refer to your Asthma Action Plan to control yourcondition. ???Quitting smoking. If you smoke, quitting is one of the best things you can do for your health. Quitting can help make your symptoms better. This include not using e-cigarettes use or vaping products. ???Staying away from irritants and triggers. Irritants and triggers for both conditions can includeair pollution, indoor pollution such as burning wood, smoke from home cooking, and heating fuels, chemical fumes, environmental dust, and smoke, including secondhand tobacco smoke. Other common asthma triggers include pollen, dust mites, cockroach droppings, pets, mold, strong smells, weather changes, especially cold weather, strong emotions such as crying or laughing, some medicines, some food additives, and exercise. For asthma, staying away from your triggers will prevent symptoms and flare-ups (asthma attacks). Always keep your Asthma Action Plan and rescue medicine with you. ???Oxygen therapy if you have COPD. When the level of oxygen in the blood is too low, your healthcare provider may prescribe oxygen. Or extra oxygen may be given when the lungs can???t get enough oxygen to the blood. ???Joining pulmonary rehab. Pulmonary rehab is a program that gives you the skills you need to manage both COPD and asthma in your daily life. Rehab can be done in the community, at home, or in the hospital. Any of these places work as long as how often you attend and how hard you work out are the same. The gold standard rehab is traditional pulmonary rehab supervised by healthcare specialists.Ask your provider if these types of programs are available for your pulmonary rehab. Also discuss with your healthcare provider which rehab program is best for you. Self-care tips There are things you can do to help manage both your asthma and COPD: ???Stop smoking. As soon as you quit, your body begins to fix the damage caused by smoking. If you need help stopping smoking, talk with your healthcare provider. Don't use e-cigarettes or vaping products. ???Stay away from secondhand smoke and other irritants. Try to stay away from smoke, chemicals, fumes, pollen, and dust. Don???t let anyone smoke in your home or use e-cigarettes or vaping products. Stay indoors on smoggy days. ???Prevent lung infections. Having COPD increases your risk for flu and pneumonia. Ask your provider about the flu and pneumonia vaccines. Take steps to prevent colds and other lung infections. ???Practice correct handwashing. Wash your hands often with soap and water. Use hand maintenance of way foreman whenyou can???t wash your hands. Stay away from crowds during cold and flu season. ???Drink water. This helps make mucus thinner and easier to cough up. Ask your provider how much water you should drink. For many people, 6 to 8 glasses (8 ounces each) a day is a good goal. ???Clear your airway. When your lungs make a lot of mucus or it's hard to cough up, airway clearingmethods can help. These include coughing methods and postural drainage. Keeping your lungs clear ofmucus helps prevent shortness of breath and other symptoms. Ask your healthcare provider about these methods. ???Do breathing exercises. Learn how to do belly breathing and pursed-lip breathing. Do these exercises while you are working. They can help you breathe better. Taking slow, deep breaths at any time can give you more of the oxygen you need. ???Limit dairy products. Dairy products can increase mucus. Enjoy milk, ice cream, and cheese in small amounts. ???Eat well. When you???re tired, you may not be eating as well as you should. Poor nutrition can make symptoms worse. It can also raise your risk for infections. Try resting before eating. Eat smaller meals during the day. Ask your healthcare provider if you should take vitamins or supplements. ???Stay at a healthy weight. Being underweight can limit your energy. Being overweight can make shortness of breath worse. People with COPD who have a low body mass index (BMI) may have more problems. Work with your provider to find out the best weight for you. ???Balance activity and rest. This can help you from getting overtired. Stop and rest before you feel worn out. If an activity takes a lot of energy, break it into parts. For instance, fold the laundry first. Then have a rest before putting it away. ???Save your energy. The way you use your body during a task can help you have more energy. Do activities slowly. Rushing through activities uses more energy. It can also increase shortness of breath. Sit to dress and to do other daily tasks such as brushing your teeth. Use a cart with wheels to move food, laundry, and other items around your house. Keep the things you use often at waist level, so you can get them easily. ???Don???t be afraid to be active. Being active may make you short of breath. Even so, it's good for your lungs. Exercise can strengthen the muscles that help you breathe. Ask your provider about safe exercises for you. ?? [id number] [employer]. All rights reserved. This information is not intended as a substitute for professional medical care. Always follow your healthcare professional's instructions. 01/05/2023 13:53:09 Heart Failure Heart Failure What is heart failure? The heart is a muscle that pumps oxygen-rich blood to all parts of the body. When you have heart failure, the heart can???t pump as well as it should. Or the heart muscle can???t relax and fill the pumping chamber with blood. Blood and fluid may back up into the lungs. This causes congestive heart failure. And it causes pulmonary edema. Some parts of the body also don???t get enough oxygen- rich blood. This means they can't work well. These problems lead to the symptoms of heart failure. What causes heart failure? Heart failure may result from: ???Heart valve disease ???High blood pressure ???Active infections of the heart valves or heart muscle, such as endocarditis ???A past heart attack ???Coronary artery disease ???Disease of the heart muscle (cardiomyopathy) ???Heart problems that are present at (congenital heart defects) ???Heart rhythm problems (arrhythmias) ???Long-term (chronic) lung disease and pulmonary embolism ???A reaction to medicines such as those used for chemotherapy ???Anemia and too much blood loss ???Thyroid disorders ???Diabetes ???Alcohol and drug abuse ???Certain viral infections What are the symptoms of heart failure? The most common symptoms of heart failure are: ???Shortness of breath while resting, exercising, or lying flat ???Weight gain from water retention ???Visible swelling of the legs.ankles, and feet from fluid buildup. Sometimes the belly (abdomen) may swell. ???Severe tiredness (fatigue) and weakness ???Loss of appetite, nausea, and belly pain ???Cough that doesn???t go away. It can cause blood-tinged or frothy sputum. The severity of the condition and symptoms depends on how much of the heart's pumping ability has been affected. The first step in managing heart failure symptoms is knowing your baselines or what???s normal for you. How much do you weigh? Are you gaining weight but eating the same amount? How muchcan you do before you feel short of breath? Do your socks and shoes fit comfortably? Knowing what???s normal for you will help you see when symptoms are getting worse. Once you know your baselines, watch for changes daily. The symptoms of heart failure may look like other health problems. Always see your healthcare provider for a diagnosis. How is heart failure diagnosed? Your healthcare provider will ask about your health history. He or she will give you a physical exam. You may need tests such as: ???Chest X-ray. This test makes images of internal tissues, bones, and organs on film. This test shows the size and shape of your heart. Fluid in the lungs will also show up on X-ray. ???Echocardiogram. This test is also called echo. It uses sound waves to assess the motion of the heart???s chambers and valves. The sound waves make an image on the screen as an ultrasound transducer is passed over the heart. This shows how well the heart pumps and relaxes. It also shows the thickness of the heart root, and if the heart is enlarged. It is one of the most useful tests because itshows a lot of information about the heart???s function. And it helps guide treatment choices. ???Electrocardiogram (ECG). This test records the electrical activity of the heart. It shows abnormal rhythms. It can sometimes find heart muscle damage. ???BNP testing. B-type natriuretic peptide (BNP) is a hormone released from the ventricles that occurs with heart failure. BNP levels are useful in the quick assessment of heart failure. The higher the BNP levels, the worse the heart failure. BNP is measured from a blood sample. ???Cardiac MRI. This test uses a magnetic field to make images of the heart and its nearby tissues.It can assess how the heart muscle and valves are working. How is heart failure treated??? The cause of heart failure will guide the treatment plan. If heart failure is caused by a valve problem or coronary heart disease, then you may need a procedure. This may be a percutaneous coronary intervention. Or it may be surgery. If heart failure is caused by a problem such as anemia or an infection, you may need medicine to treat this problem. Some causes of heart failure are reversible or short-term, such as in an acute infection. For many causes of heart failure there is no cure. But many forms of treatment can help with symptoms. They are listed below. Lifestyle changes These healthy habits may help with heart failure: ???Controlling blood pressure ???Controlling blood sugar if you have diabetes ???Quitting smoking ???Maintaining a healthy weight. Losing weight, if needed ???Regular exercise ???Limiting salt and fat in your diet ???Not drinking alcohol or using illicit drugs ???Getting enough rest ???Reducing stress ???Other important lifestyle habits include getting vaccines such as for the flu and pneumococcal pneumonia. If you have sleep problems, getting a sleep study get help find out what???s causing them. You may need to wear a C-PAP mask while you sleep. This will make sure you get enough oxygen. Too little oxygen can put stress on your heart. Medicines Many types of medicines are available for heart failure. They include: ???Angiotensin converting enzyme (TRAN) inhibitors. These lower the pressure inside the blood vessels. This reduces the pressure that the heart has to pump against. They can also help the heart have better pumping ability over time. ???Angiotensin receptor blockers (ARB). Some people get a cough and need to stop taking TRAN inhibitors. If that happens, an ARB may work for you. These help relax blood vessels and reduce stress on the heart. ???Angiotensin receptor-neprilysin inhibitors (ARNIs). This medicine combines an ARB and a neprilysin inhibitor. This can help the heart as noted above. And it can promote salt and water loss. ???Sinus node I-f channel brendan . This may be used to lower your heart rate. Then then puts less stress on your heart. ???Diuretics. These reduce the amount of fluid in the body. They are among the most important medicines in helping control fluid buildup in the body. ???Vasodilators. These include hydralazine and nitroglycerin. These widen (dilate) the blood vessels. They reduce the workload on the heart. ???Digitalis. This medicine helps the heart beat stronger. It may help with controlling heart rate if there is an abnormal heart rhythm. ???Antiarrhythmics. These help keep normal heart rhythm. ???Beta-blockers. These reduce the heart???s tendency to beat faster. They can also help the heart pump better over time. ???Aldosterone blockers. This blocks the effects of the hormone aldosterone. This hormone causes sodium and water retention. ???Statins or PCSK9 inhibitors. These lower the amount of bad cholesterol in your blood. They are not used to treat heart failure. But you may take one if you have high cholesterol. Or you may take one if you have had a past heart attack and are at risk for heart failure. People who have inherited forms of high cholesterol (familial hypercholesterolemia) may get help from PCSK9 inhibitors. These medicines lower cholesterol. ???Sodium-glucose cotransporter-2 (SGLT2) inhibitors. These medicines are for people with heart failure with reduced ejection fraction. They block your kidneys from reabsorbing sugar from the blood. This helps your body get rid of extra salt and water and so lowers your blood pressure. Lowering your blood pressure eases the strain on your heart. Your provider may prescribe an SGLT2 inhibitor if other treatment isn???t working. Heart procedures These include opening blocked arteries in the heart. This brings back blood flow to the heart muscle. It helps the ventricles squeeze as they should. The procedure can be done in the cardiac catheterization lab. It uses balloons to push plaque and blood clots out of the artery. It also uses stents to keep the artery open. This can also be done by bypassing blockages during surgery (coronary artery bypass surgery). Heart valve repair or replacement In some cases medicines can???t help heart failure caused by heart valves that are narrowed (stenosed) or leak (regurgitant). The heart valve can be repaired or replaced. This can be done as an open-heart procedure. Or it can be done by going through a small tube (catheter) that is put into an artery or vein. Pacemaker If your heart failure has also damaged your heart???s electrical wiring system, a pacemaker can be implanted. This is done to restore normal heart rate and regularity. A cardiac resynchronizing pacemaker is used when 1 of the heart wires is damaged. This is often the wire located in the left ventricle. These pacemakers use implanted left and right sided wires to restore normal timing of the heartcontraction in order to improve heart function. ICD (implantable cardioverter defibrillator) When heart muscle is damaged, dangerous heart circuits can form in the heart muscle. This leads to heart rhythms that can cause . An ICD is implanted in the body to sense and treat these cardiacarrest rhythms. It does this by overdrive pacing the heart rhythm. Or it sends an energy shock to the heart. VAD (ventricular assist device) This device is put in the chest during a surgery. It connects to an outside motor. The motor helps pump blood from the heart to the rest of the body. VADs can allow people with advanced heart failureto improve their overall symptoms and to walk more. This can be used as a long-term treatment. Or it can be used while someone waits for a donor heart for a transplant. Heart transplant In some cases, the diseased heart must be replaced with a healthy one from a donor. Talk with your healthcare providers about the risks, benefits, and possible side effects of all treatments. What are possible complications of heart failure? Complications of heart failure include: ???Fluid buildup in the lungs (pulmonary edema) ???Kidney and liver failure ???Stroke ???Abnormal heart rhythms ??? How daily issues affect your health Many things in your daily life impact your health. This can include transportation, money problems,housing, access to food, and child care nurse. If you can???t get to medical appointments, you may not receive the care you need. When money is tight, it may be difficult to pay for medicines. And living far from a grocery store can make it hard to buy healthy food. If you have concerns in any of these or other areas, talk with your healthcare team. They may know of local resources to assist you. Or they may have a staff person who can help. Juarez points about heart failure ???When you have heart failure, the heart can???t pump as well as it should. ???Heart failure may result from health problems that affect the heart, such as high blood pressure, coronary artery disease, and heart attack. ???Some common symptoms are shortness of breath, weight gain, and visible swelling of the legs and ankles. ???A chest X-ray can help diagnose lung congestion. ???Treatment varies based on the cause of heart failure. Most people are advised to make certain lifestyle changes and to take certain medicines, often for life. Procedures such as coronary intervention and surgery may be needed. Next steps Tips to help you get the most from a visit to your healthcare provider: ???Know the reason for your visit and what you want to happen. ???Before your visit, write down questions you want answered. ???Bring someone with you to help you ask questions and remember what your provider tells you. ???At the visit, write down the name of a new diagnosis, and any new medicines, treatments, or tests. Also write down any new instructions your provider gives you. ???Know why a new medicine or treatment is prescribed, and how it will help you. Also know what theside effects are. ???Ask if your condition can be treated in other ways. ???Know why a test or procedure is recommended and what the results could mean. ???Know what to expect if you do not take the medicine or have the test or procedure. ???If you have a follow-up appointment, write down the date, time, and purpose for that visit. ???Know how you can contact your provider if you have questions. ?? The [employer]. All rights reserved. This information is not intended as a substitute for professional medical care. Always follow your healthcare professional's instructions. 01/05/2023 13:49:53 About Arrhythmias About Arrhythmias Electrical impulses cause the normal heart to beat 60 to 100 times a minute while at rest. These impulses come from a natural pacemaker called the sinus node. It is, ??inside the right upper heart chamber. Electrical impulses travel throughout the upper heart chambers (the atria) before reaching the bottom muscle chambers ((the ventricles) through an electrical connection called the AV node. Eachimpulse causes the heart muscle to contract. This causes the blood to flow through the heart and out to the tissues and organs of your body. An arrhythmia is a change from the normal speed or pattern of these electrical impulses. This can cause the heart to beat too fast (tachycardia), too slow (bradycardia), or in an unsteady pattern (irregular rhythm). Symptoms of arrhythmias Different people experience arrhythmias differently. And different arrhythmias can cause different symptoms. Sometimes you may not have symptoms, but just notice a change in your pulse. Symptoms can include: ???Fluttering feeling in the chest ???Shortness of breath ???Chest pain or pressure ???Neck fullness ???Lightheadedness or dizziness ???Fainting or almost fainting ???Palpitations. This is the sense that your heart is fluttering or beating fast or hard or irregularly. ???Tiredness, fatigue, or weakness ???Cardiac arrest, and , in serious arrhythmias Causes of arrhythmias Arrhythmias are most often caused by heart disease, such as: ???Coronary artery disease (blocked arteries) ???Heart valve disease ???Enlarged heart ???High blood pressure ???Heart failure Other causes of??arrhythmia include: ???Certain medicines such as asthma inhalers and decongestants ???Some herbal supplements ???Cardiac stimulant drugs such as cocaine, amphetamine, and diet pills, and certain decongestant cold medicines, caffeine, and nicotine ???Heavy use of alcohol ???Anxiety and panic disorder ???Thyroid disease ???Anemia ???Diabetes ???Sleep apnea ???Obesity ???Congenital heart disease ???Cardiac genetic diseases ???Electrolyte imbalance. Electrolytes are substances that help regulate normal heartbeat., High orlow levels of certain electrolytes such as potassium or magnesium may affect the heartbeat and contribute to arrhythmia. Arrhythmias can often be prevented. The cause and type of arrhythmia determines the best treatment.Sometimes your doctor may want to monitor your heart rate over a 24-hour period or longer. This canhelp find the cause of your arrhythmia and find the best treatment. This can be done with a Holter monitor. This is??a portable electrocardiogram (ECG) recording device attached by wires to your chest. Or you may get an event monitor, which you can place over the skin in front of your heart to record heart rhythms. You can carry this with you as you go about your routine activities during the monitoring period. Implantable loop recorders may also be used to monitor the heart rhythm for up to 3 years. This miniature device is placed underneath the skin over the heart. Home care These guidelines will help you care for yourself at home: ???Stay away from cardiac stimulants such as cocaine, amphetamine, diet pills, certain decongestantcold medicines, caffeine, and nicotine. ???If you smoke, stop smoking. Contact your doctor or a local stop-smoking program for help. ???Tell your doctor about any prescription, rgnw-wvm-mqonjmm, or herbal medicines you take. These may be affecting your heart rhythm. Follow-up care Follow up with your healthcare provider, or as advised. If a Holter monitor has been recommended, contact the senior developer??you have been referred to??as soon as you can??garbage pick up man the device. Other outpatient tests may also be arranged for you at that time. Call 911 This is the fastest and safest way to get to the emergency department. The paramedics can also start treatment on the way to the hospital, if needed. Don't??wait until your symptoms are severe to call 911. Other reasons to call 911 besides chest pain include: ???Chest pain radiating to the shoulder, arm, neck, or back. ???Shortness of breath ???Feeling lightheaded, faint, or dizzy ???Unexplained fainting ???Rapid heart beat ???Slower than usual heart rate compared to your normal ???Very irregular heartbeat ???Chest pain (angina) with weakness, dizziness, heavy sweating, nausea, or vomiting ???Extreme drowsiness, or confusion ???Weakness of an arm or leg or one side of the face ???Trouble with speech or vision When to seek medical advice Remember, things are not always like they are on TV. Sometimes it is not so obvious. You may only feel weak or just not right. If it is not clear or if you have any doubt, call for advice. ???Seek help for chest pain, or if something feels different from usual, even if your symptoms are mild. ???Don't drive yourself. Have someone else drive. If no one can drive you, call 911. ???If your doctor has given you medicines to take when you have symptoms, take them, but don't delay getting help while trying to find them. ?? 2085-8722 The [employer]. All rights reserved. This information is not intended as a substitute for professional medical care. Always follow your healthcare professional's instructions. 01/05/2023 13:49:48 Atrial Fibrillation, Discharge Instructions Discharge Instructions for [...] be used instead of taking a medicine retirement. Your provider may advise other treatment choices. [...] should cut out all caffeine. ???Don't take ybfj-oea-sxnzaob medicines that have caffeine in them. Also don't take medicines withpseudoephedrine. ???Let your provider know what medicines you take. These include prescription and tnlu-ner-xsnesbt medicines, as well as any supplements. They [...] heartbeat, or an unusually fast heartbeat ?? [employer]. All rights reserved. This information is not intended as a substitute for professional medical care. Always follow your healthcare professional's instructions. Discharge summary * My Travis MD: PERFORM Event Display: Discharge Summary Authored Date: Patient Information Attending Physician: Margi Plummer MD Admitting Diagnosis: a fib w/ rvr, dyspnea on exertion Discharge [facility]: [facility] Primary Care Physician: No pcp no family MD, Doctor Admit Date/Time: 01/02/23 16:59 Discharge Diagnosis Dyspnea on exertion (R06.09) Atrial fibrillation with RVR (I48.91) Adult BMI 34.0-34.9 kg/sq m (Z68.34) BPH (benign prostatic hyperplasia) (N40.0) COPD mixed type (J44.9) Chronic hypoxemic respiratory failure (J96.11) Hypothyroid (E03.9) Acute on chronic diastolic heart failure secondary to hypertrophic cardiomyopathy (I50.33) Non-insulin treated type 2 diabetes mellitus (E11.9) _ ?? Discharge Medications ascorbic acid (Vitamin C 500 mg oral capsule)?500?Milligram?1?Capsules?By Mouth?2Times a Day aspirin (aspirin 81 mg oral tablet, chewable)?81?Milligram?1?Tabs?Chewed?Daily atorvastatin (atorvastatin 40 mg oral tablet)?40?Milligram?1?Tabs?By Mouth?at Bedtime carvedilol (carvedilol 6.25 mg oral tablet)?6.25?Milligram?1?Tabs?By Mouth?2 Times a Day clopidogrel (Plavix 75 mg oral tablet)?75?Milligram?1?Tabs?By Mouth?Daily cyanocobalamin (cyanocobalamin 1000 mcg/mL injectable solution)?1,000?Microgram?Intramuscular?Every Sunday cyclobenzaprine (cyclobenzaprine 10 mg oral tablet)?10?Milligram?1?Tabs?By Mouth?at Bedtime finasteride (Proscar 5 mg oral tablet)?5?Milligram?1?Tabs?By Mouth?Daily FLUoxetine (PROzac 20 mg oral capsule)?20?Milligram?1?Capsules?By Mouth?Daily furosemide (Lasix 80 mg oral tablet)?80?Milligram?1?Tabs?By Mouth?Daily levothyroxine (Synthroid 25 mcg (0.025 mg) oral tablet)?25?Microgram?1?Tabs?By Mouth?Daily loratadine (loratadine 10 mg oral tablet)?10?Milligram?1?Tabs?By Mouth?Daily metFORMIN (metFORMIN 500 mg oral tablet)?500?Milligram?1?Tabs?By Mouth?Daily?as needed?Blood Glucose (please specify)?for blood sugar over 200 multivitamin with minerals (Centrum Silver oral tablet)?1?Tabs?By Mouth?2 Times a Day pantoprazole (Protonix 20 mg oral enteric coated tablet)?20?Milligram?1?Tabs?By Mouth?Daily saw palmetto (saw palmetto 450 mg oral capsule)?450?Milligram?1?Each?By Mouth?2 Times a Day tamsulosin (Flomax 0.4 mg oral capsule)?0.4?Milligram?1?Capsules?By Mouth?2 Timesa Day ? Inpatient Medications Medications (25) Active SCHEDULED: (18) amiodarone 200 mg Tab (amiodarone) ??200 mg 1 Tabs, Oral, Daily apixaban 5 mg Tab (Eliquis) ??5 mg 1 Tabs, Oral, BID ascorbic acid 500 mg Tab (Vitamin C) ??500 mg 1 Tabs, Oral, BID aspirin 81 mg Chew Tab (aspirin) ??81 mg 1 Tabs, Chewed, Daily atorvastatin 40 mg Tab (atorvastatin) ??40 mg 1 Tabs, Oral, qHS cyanocobalamin 1000 mcg/mL INJ SOLN (cyanocobalamin) ??1,000 mcg 1 mL, IntraMuscular, qMonday cyclobenzaprine 10 mg Tab (cyclobenzaprine) ??10 mg 1 Tabs, Oral, qHS docusate sodium 100 mg Cap (Colace) ??100 mg 1 Caps, Oral, BID famotidine 20 mg Tab (famotidine) ??20 mg 1 Tabs, Oral, BID finasteride 5 mg Tab (Proscar) ??5 mg 1 Tabs, Oral, Daily FLUoxetine 20 mg Cap (PROzac) ??20 mg 1 Caps, Oral, Daily furosemide 20 mg Tab (Lasix) ??20 mg 1 Tabs, Oral, BID levothyroxine 25 mcg (0.025 mg) Tab (Synthroid) ??25 mcg 1 Tabs, Oral, Daily loratadine 10 mg Tab (loratadine) ??10 mg 1 Tabs, Oral, Daily metoprolol succinate 25 mg XL Tab (Metoprolol Succinate ER) ??25 mg 1 Tabs, Oral, qHS potassium chloride 20 mEq ER Tab (potassium chloride) ??20 mEq 1 Tabs, Oral, Daily Protocols (Potassium Chloride - Oral & IV) ??Protocol, N/A, Daily tamsulosin 0.4 mg SA Cap (Flomax) ??0.4 mg 1 Caps, Oral, BID CONTINUOUS: (1) diltiazem/0.7%NS 125 mg [5 mg/hr] + Premix 125 mL (dilTIAZem 125 mg [5 mg/hr] + Premix 125 mL) ??125 mL, IV, 5 mL/hr PRN: (6) acetaminophen 325 mg Tab (Tylenol) ??650 mg 2 Tabs, Oral, q4H diphenhydrAMINE 25 mg Cap (Benadryl) ??50 mg 2 Caps, Oral, qHS labetalol 20 mg/4 mL inj (labetalol) ??10 mg 2 mL, IV Push, q1H Interval levalbuterol 0.63 mg/3 mL Inh Janet (levalbuterol) ??0.63 mg 3 mL, Inhalation, q8H ondansetron 4 mg/2 mL vial (Zofran) ??4 mg 2 mL, IV Push, q8H senna 8.6 mg Tab senna gen (senna) ??17.2 mg 2 Tabs, Oral, Daily ? 72 hour Antibiotic History No qualifying data available... ?? Durable Medical Equipment ? Follow-Up/Discharge Instructions Follow-up [facility], [address] [place] [address] , MED, 01/16/23 09:45 Joaquín MODI, Josh, CAR, 01/17/23 14:30 Ranjit MODI, Ashutosh Quiroga, PUL, 01/18/23 13:00 ? Pending Results CL Retanner Order ordered on 01/04/2023 Hepatic/Liver Function Panel ordered on 01/05/2023 Results Discharge Labs Blood Gases pH Arterial 7.440 (Normal)?? 01/04/2023 08:04 Art pCO2 45.8 mmHg (High)?? 01/04/2023 08:04 Art pO2 69.6 mmHg (Low)?? 01/04/2023 08:04 Art TempC,pH 7.440 (N/A)?? 01/04/2023 08:04 Art TempC,PCO2 45.8 mmHg (N/A)?? 01/04/2023 08:04 Art TempC,PO2 69.6 mmHg (N/A)?? 01/04/2023 08:04 Art HCO3 29.8 mmol/L (High)?? 01/04/2023 08:04 Art Base Excess 6.0 mmol/L (High)?? 01/04/2023 08:04 Art sO2 94 % (Normal)?? 01/04/2023 08:04 Art tHB 12.7 gm/dL (Low)?? 01/04/2023 08:04 Art O2 Hb 92 % (Low)?? 01/04/2023 08:04 Art Carboxyhemoglobin 1.5 % (Normal)?? 01/04/2023 08:04 Art Methemoglobin 0.3 % (Normal)?? 01/04/2023 08:04 POC Juan Antonio Test POS (N/A)?? 01/04/2023 08:04 POC Del Sys ROOM AIR (N/A)?? 01/04/2023 08:04 POC FIO2 21 % (N/A)?? 01/04/2023 08:04 POC Pt Temp 37.0 DegC (N/A)?? 01/04/2023 08:04 POC Site Radial Left (N/A)?? 01/04/2023 08:04 POC Sample Arterial (N/A)?? 01/04/2023 08:04 POC Vent Mode NO VENT (N/A)?? 01/04/2023 08:04 Art Hct 39.1 % (Low)?? 01/04/2023 08:04 Art Lactate 1.3 mmol/L (Normal)?? 01/04/2023 08:04 Notified By [id number] (N/A)?? 01/04/2023 08:04 Notified To and MELIZA CUETO RN (N/A)?? 01/04/2023 08:04 Notified Note ROOM AIR ABG (N/A)?? 01/04/2023 08:04 Vending Machine Assembler ID [id number] (N/A)?? 01/04/2023 08:04 ?? Cardiac BNP 249.0 pg/mL (High)?? 01/03/2023 04:30 Troponin TNIH 18.36 ng/L (Normal)?? 01/02/2023 15:48 ?? General Chemistry Glucose Level 156 mg/dL (High)?? 01/05/2023 04:37 POC Glucose 153 mg/dL (High)?? 01/05/2023 11:22 Arterial Glucose 156 mg/dL (High)?? 01/04/2023 08:04 Sodium 137 mmol/L (Normal)?? 01/05/2023 04:37 Art Na 139 mmol/L (Normal)?? 01/04/2023 08:04 Potassium 3.1 mmol/L (Low)?? 01/05/2023 04:37 Art K 3.2 mmol/L (Low)?? 01/04/2023 08:04 Chloride 103 mmol/L (Normal)?? 01/05/2023 04:37 CO2 30 mmol/L (Normal)?? 01/05/2023 04:37 Anion Gap 4 mmol/L (Normal)?? 01/05/2023 04:37 BUN 18 mg/dL (Normal)?? 01/05/2023 04:37 Creatinine 1.1 mg/dL (Normal)?? 01/05/2023 04:37 BUN/Creat Ratio 16.36 Ratio (Normal)?? 01/05/2023 04:37 Calcium 9.0 mg/dL (Normal)?? 01/05/2023 04:37 Art iCa 1.3 mmol/L (High)?? 01/04/2023 08:04 Mg Lvl 2.0 mg/dL (Normal)?? 01/03/2023 04:30 Estimated Creatinine Clearance 49.94 mL/min ()?? 01/03/2023 04:56 eGFR Cr 69 mL/min/1.73m2 (N/A)?? 01/05/2023 04:37 eGFR Pediatric Not Reported mL/min/1.73m2 (N/A)?? 01/05/2023 04:37 ? General Hematology WBC 9.30 x10e3/mcL (Normal)?? 01/05/2023 04:37 RBC 3.94 x10e6/mcL (Low)?? 01/05/2023 04:37 Hgb 13.10 gm/dL (Low)?? 01/05/2023 04:37 Hct 38.20 % (Low)?? 01/05/2023 04:37 MCV 96.9 Femtoliters (Normal)?? 01/05/2023 04:37 MCH 33.30 pg (High)?? 01/05/2023 04:37 MCHC 34.30 gm/dL (Normal)?? 01/05/2023 04:37 RDW-CV 14.40 % (Normal)?? 01/05/2023 04:37 RDW-SD 49.40 Femtoliters (High)?? 01/05/2023 04:37 Plt 168 x10e3/mcL (Normal)?? 01/05/2023 04:37 MPV 8.40 Femtoliters (Normal)?? 01/05/2023 04:37 NRBC % 0 % (Normal)?? 01/02/2023 14:50 Neut % Auto 61.3 % (Normal)?? 01/02/2023 14:50 Lymph % Auto 25.9 % (Normal)?? 01/02/2023 14:50 [place] % Auto 9.8 % (Normal)?? 01/02/2023 14:50 Eos % Auto 2.5 % (Normal)?? 01/02/2023 14:50 Baso % Auto 0.5 % (Normal)?? 01/02/2023 14:50 Neut # Auto 4.6 x10e3/mcL (Normal)?? 01/02/2023 14:50 Lymph # Auto 1.9 x10e3/mcL (Normal)?? 01/02/2023 14:50 [place] # Auto 0.7 x10e3/mcL (Normal)?? 01/02/2023 14:50 Eos # Auto 0.2 x10e3/mcL (Normal)?? 01/02/2023 14:50 Baso # Auto 0.0 x10e3/mcL (Normal)?? 01/02/2023 14:50 ?? Infectious Disease Influenza A Not Detected (Normal)?? 01/02/2023 15:42 Influenza B Not Detected (Normal)?? 01/02/2023 15:42 RSV Not Detected (Normal)?? 01/02/2023 15:42 ? Other Coagulation DDimer ULT 406 ng/mL FEU (Normal)?? 01/03/2023 15:13 ? Other Microbiology Adenovirus Not Detected (Normal)?? 01/02/2023 15:42 Coronavirus 229E Not Detected (Normal)?? 01/02/2023 15:42 Coronavirus HKU1 Not Detected (Normal)?? 01/02/2023 15:42 Coronavirus NL63 Not Detected (Normal)?? 01/02/2023 15:42 Coronavirus OC43 Not Detected (Normal)?? 01/02/2023 15:42 Hum Metapneumo Not Detected (Normal)?? 01/02/2023 15:42 Hum Rhino/Entero Not Detected (Normal)?? 01/02/2023 15:42 Parainflu Vir 1 Not Detected (Normal)?? 01/02/2023 15:42 Parainflu Vir 2 Not Detected (Normal)?? 01/02/2023 15:42 Parainflu Vir 3 Not Detected (Normal)?? 01/02/2023 15:42 Parainflu Vir 4 Not Detected (Normal)?? 01/02/2023 15:42 Bordetella pertuss Not Detected (Normal)?? 01/02/2023 15:42 Chlam pneumoniae Not Detected (Normal)?? 01/02/2023 15:42 Mycoplas pneumoniae Not Detected (Normal)?? 01/02/2023 15:42 Bordetella parapertussis Not Detected (Normal)?? 01/02/2023 15:42 ? SARS-CoV-2/Covid-19 Reason for Testing Diagnostic (Normal)?? 01/02/2023 15:42 SARS-CoV-2 Not Detected (Normal)?? 01/02/2023 15:42 Suspect COVID? Yes (Normal)?? 01/02/2023 15:42 Symptomatic as defined by CDC? Yes (Normal)?? 01/02/2023 15:42 Hospitalized due to COVID? None (N/A)?? 01/02/2023 15:42 In ICU? None (N/A)?? 01/02/2023 15:42 status? Not (Normal)?? 01/02/2023 15:42 Employed in healthcare? None (N/A)?? 01/02/2023 15:42 Group care resident? No (Normal)?? 01/02/2023 15:42 ? Thyroid T4 Free 0.86 ng/dL (Low)?? 01/02/2023 14:50 TSH 4.543 mc Intl units/mL (Normal)?? 01/02/2023 14:50 ? Blood Glucose Trend Glucose Level:??156 mg/dL??High (01/05/23 04:37:00) POC Glucose:??153 mg/dL??High (01/05/23 11:22:00) POC Glucose:??150 mg/dL??High (01/05/23 04:36:00) POC Glucose:??145 mg/dL??High (01/04/23 19:59:00) POC Glucose:??160 mg/dL??High (01/04/23 16:32:00) ? Microbiology ?? Respiratory Panel PCR?? Completed?? Source: Nasopharyngeal Body Site: ?? Collected Dt/Tm: 01/02/2023 15:42 Last Updated Dt/Tm: 01/02/2023 16:53 ? Allergies Allergies ?(Active and Proposed Allergies Only) codeine? (Severity: Unknown severity, Onset: Unknown) ?Reactions: hives penicillin? (Severity: Unknown severity, Onset: Unknown) ?Reactions: hives ? Objective Measurements (most recent)?? Height 167.64 cm?Jesús RN, Donna G ??01/02 14:29 Weight 94.00 kg?Mckeon PCT, Zari ??01/05 06:29 Body Mass Index 33.84 kg/m2?Mckeon PCT, Zari ??01/04 06:33 Scale Type Bed scale?Mckeon PCT, Zari ??01/04 06:33 ? Vital Signs (24 hrs) Last Charted?? Minimum?? Maximum?? Temp?? L??36.2?? 01/05/2023 11:09?? L??36.2?? 01/04/2023 19:20 ?? 37.0?? 01/04/2023 15:00?? Peripheral Pulse Rate?? 88?? 01/05/2023 11:09?? 87?? 01/04/2023 23:14 ?? 99?? 01/05/2023 07:36?? Resp Rate?? 18?? 01/05/2023 11:09?? 18?? 01/04/2023 15:41 ?? 18?? 01/04/2023 15:41?? SBP?? 100?? 01/05/2023 11:09?? 100?? 01/05/2023 11:09 ?? 118?? 01/05/2023 07:36?? DBP?? 65?? 01/05/2023 11:09?? 65?? 01/05/2023 11:09 ?? 79?? 01/05/2023 04:20?? MAP?? 77?? 01/05/2023 11:09?? 77?? 01/05/2023 11:09 ?? 92?? 01/05/2023 07:36?? SpO2?? 94?? 01/05/2023 11:09?? L??92?? 01/04/2023 19:20 ?? 95?? 01/04/2023 15:41?? O2 Therapy?? Room air?? Room air?? Room air ? Pain Scores (Last Within 24hrs) Numeric Pain Scale: 0 = No pain (04:20) ? I&O 24 Hour Total? 01/02 16:59 01/05 07:00 01/04 07:00 01/03 07:00 01/02 07:00 ?? 01/05 12:18 01/05 12:18 01/05 06:59 16 06:59 01/03 06:59 Intake ? 2589.8 ?120 ? 1010 ? 1045 ?414.9 Output ? 4260 ?0 ? 1050 ? 1950 ? 1260 Net Total ?-1670.2 ?120 ?-40 ? -905 ? -845.1 ? Precautions No Precautions documented.? Mental Status Exam ? Basic ADLs ? Discharge Recommendations PT/OT/ST ? Hospital Course 77/M with COPD previously on Home O2 for hypoxemic resp failure. ??Obstructive sleep apnea on home CPAP??,,??congestive heart failure??reported ejection fraction of 35%,?? Non insulin Rxed DM2, HTN. HLD. Hypothyroidism. BPH. Depression , Hx Paroxysmal A Fib Rxed at [facility] overnight and DCed without Cardio involvement , was seen at DR Joaquín Collier today found to be in A Fib RVR with?? severe chest pain 08/28 , resp distress, weakness?? sent to ER Heart for eval and Rx.?? In the ER he was placed onCardizem drip and O2 via nasal cannula??EKG showed A-fib with??poor R progression troponin had beennegative x2??beta natriuretic peptide level 407??chest x-ray showing bilateral pulmonary edema, andarterial blood gases pH was 7.42 PCO2 48 PO2??108, patient remained on Cardizem drip at 10 mg/h he was started on carvedilol??and started on IV Lasix?? he improved He had 6-minute walk yesterday on room air his O2 saturation remained above 92%??, on room air O2 saturation 93 arterial blood gases obtained on room air??is??PCO2 was??69 pH 7.44 PCO2 of 45??patientis feeling better respiratory fields he is less dyspneic denies any chest pain denies any cough, no fever had been??reported?? anxious to go home will be discharged and follow up with pcp and cardiology as out patient ???More than 35 minutes spent on discharge planning,??[id number]-[id number]??with patient, physical exam, medication reconciliation and adjusting dose of medications, sending/printing prescriptions, and providing final instructions and recommendations to patient and nurses for discharge planning, and post-di scharge follow ups.? Electronically Signed By: My Travis MD On: 01.05.2023 12:20 CLEAT BLANKER eligibility manager Note * Patricia NEFF CM, [facility]: MODIFY, PERFORM Event Display: Progress Note - Care Manage/Social Work Authored Date: _ Per Dr Church,Stock Sorter patient ??on room air PO2 was 67??, O2 saturation with up ambulation??above 92 no need for home oxygen. CPAP??12 cm H2O nighttime and as needed??daytime. * Regine Salazar CM: PERFORM Event Display: Progress Note - Care Manage/Social Work Authored Date: [id number] Per 6min walk from therapist, pt remained above 92% on room air. Does not qualify for home oxygenat this time. Pending further MD recommendations. * Regine Salazar CM: PERFORM Event Display: Progress Note - Care Manage/Social Work Authored Date: [id number] Spoke with Beny Rees. Pt has multiple oxygen devices dispensed in [place] and [place]. Currently under [employer] for oxygen. Per Cabrera, he will verify when patients last concentrator was dispensed to see if he qualifies. * Zheng NEFF CM, Margi Dennison: PERFORM Event Display: Progress Note - Care Manage/Social Work Authored Date: [id number] _ MAE spoke with patient and his at bedside. The patient and his live together in a [employer] home in [facility]. They are from [place], [place]. They come to [facility] for winter.?? At home the patient ambulates independently, drives, and does own ADLs. Has good support with his and she drives, cooks, and cleans. The states she will help with transportation and care at home if needed. Patient was in the [place] for 4 years. Patient states that he has insurance and does not want to register at the [facility].?? Patient does not have a local PCP. The patient and his are planning on looking for a PCP locally. PCP is in [place]: [facility]: they use [facility] by mail or [facility] in [place] on [address] ? Regarding Home oxygen order: Spoke with patient and his regarding home oxygen order. The patient states he would like [facility] because they have a [facility] in [place] as well. Patient signed patient choice form for [facility]. Sent order and clinical to [facility] via [employer]. Flagged chart with [facility] form, it is pending to be completed and signed by physician. Updated nurse and sent communication to physician. CM to f/u as needed. Progress note * Ranjit MODI, Ashutosh Quiroga: PERFORM Event Display: Progress Note-Physician Authored Date: Subjective He had 6-minute walk yesterday on room air his O2 saturation remained above 92%??, on room air O2 saturation 93 arterial blood gases obtained on room air??is??PCO2 was??69 pH 7.44 PCO2 of 45??patientis feeling better respiratory fields he is less dyspneic denies any chest pain denies any cough, no fever had been??reported??liters he had DC cardioversion this morning??200 J he is back in sinus rhythm??, he is now on carvedilol and Lasix ?? Admission data 77/M with COPD previously on Home O2 for hypoxemic resp failure. ??Obstructive sleep apnea on home CPAP??,,??congestive heart failure??reported ejection fraction of 35%,?? Non insulin Rxed DM2, HTN. HLD. Hypothyroidism. BPH. Depression , Hx Paroxysmal A Fib Rxed at [facility] overnight and DCed without Cardio involvement , was seen at DR Joaquín Collier today found to be in A Fib RVR with?? severe chest pain 10/10 , resp distress, weakness?? sent to ER Heart for eval and Rx.?? In the ER he was placed onCardizem drip and O2 via nasal cannula??EKG showed A-fib with??poor R progression troponin had beennegative x2??beta natruretic peptide level 407??chest x-ray showing bilateral pulmonary edema, and arterial blood gases pH was 7.42 PCO2 48 PO2??108, patient remained on Cardizem drip at 10 mg/h he was started on carvedilol??and started on IV Lasix??is currently on oxygen??3 L nasal cannula he is sitting up at the edge of the bed his O2 saturation is??97% breathing at rate of 18 blood pressure is97/67 heart rate of??81 temperature 36.6, patient denies any chest pain denies??cough ? Review of Systems Review of Systems: Constitutional:??no [...] HTN (hypertension) Hyperlipemia ? Past Surgical History No surgery history documented. ? Social History Alcohol Details:??Current, 1-2 times per year Substance Abuse Details:??Denies Tobacco Details:??Denies ? Family History No Family History documented. ? Objective Measurements (most recent)?? Height 167.64 cm?Jesús RN, Marciaelderjoycelyn G ??01/02 14:29 Weight 94.00 kg?Mckeon PCT, Zari ??01/05 06:29 Body Mass Index 33.84 kg/m2?Mckeon PCT, Zari ??01/04 06:33 Scale Type Bed scale?Mckeon PCT, Zari ??01/04 06:33 ? Vital Signs (24 hrs) Last Charted?? Minimum?? Maximum?? Temp?? L??36.4?? 01/05/2023 07:36?? 36.7?? 01/04/2023 12:00 ?? 37.0?? 01/04/2023 15:00?? Peripheral Pulse Rate?? 99?? 01/05/2023 07:36?? 85?? 01/04/2023 12:00 ?? 99?? 01/05/2023 07:36?? Resp Rate?? 18?? 01/05/2023 07:36?? 18?? 01/04/2023 12:00 ?? 18?? 01/04/2023 12:00?? SBP?? 118?? 01/05/2023 07:36?? 108?? 01/04/2023 14:35 ?? 125?? 01/04/2023 12:00?? DBP?? 79?? 01/05/2023 07:36?? 72?? 01/04/2023 19:20 ?? 79?? 01/05/2023 04:20?? MAP?? 92?? 01/05/2023 07:36?? 86?? 01/04/2023 23:14 ?? 92?? 01/05/2023 07:36?? SpO2?? 95?? 01/05/2023 07:36?? L??92?? 01/04/2023 19:20 ?? 95?? 01/04/2023 15:41?? O2 Therapy?? Room air?? Room air?? Room air ? I&O 24 Hour Total? 01/02 16:59 01/05 07:00 01/04 07:00 01/03 07:00 01/02 07:00 ?? 01/05 10:21 01/05 10:21 01/05 06:59 16 06:59 01/03 06:59 Intake ? 2589.8 ?120 ? 1010 ? 1045 ?414.9 Output ? 4260 ?0 ? 1050 ? 1950 ? 1260 Net Total ?-1670.2 ?120 ?-40 ? -905 ? -845.1 ? Physical Exam General: Obesity BMI 34.1??alert, [...] appropriate mood and affect _ Home Medications ascorbic acid (Vitamin C 500 mg oral capsule)?500?Milligram?1?Capsules?By Mouth?2Times a Day aspirin (aspirin 81 mg oral tablet, chewable)?81?Milligram?1?Tabs?Chewed?Daily atorvastatin (atorvastatin 40 mg oral tablet)?40?Milligram?1?Tabs?By Mouth?at Bedtime carvedilol (carvedilol 6.25 mg oral tablet)?6.25?Milligram?1?Tabs?By Mouth?2 Times a Day clopidogrel (Plavix 75 mg oral tablet)?75?Milligram?1?Tabs?By Mouth?Daily cyanocobalamin (cyanocobalamin 1000 mcg/mL injectable solution)?1,000?Microgram?Intramuscular?Every Sunday cyclobenzaprine (cyclobenzaprine 10 mg oral tablet)?10?Milligram?1?Tabs?By Mouth?at Bedtime finasteride (Proscar 5 mg oral tablet)?5?Milligram?1?Tabs?By Mouth?Daily FLUoxetine (PROzac 20 mg oral capsule)?20?Milligram?1?Capsules?By Mouth?Daily furosemide (Lasix 80 mg oral tablet)?80?Milligram?1?Tabs?By Mouth?Daily levothyroxine (Synthroid 25 mcg (0.025 mg) oral tablet)?25?Microgram?1?Tabs?By Mouth?Daily loratadine (loratadine 10 mg oral tablet)?10?Milligram?1?Tabs?By Mouth?Daily metFORMIN (metFORMIN 500 mg oral tablet)?500?Milligram?1?Tabs?By Mouth?Daily?as needed?Blood Glucose (please specify)?for blood sugar over 200 multivitamin with minerals (Centrum Silver oral tablet)?1?Tabs?By Mouth?2 Times a Day pantoprazole (Protonix 20 mg oral enteric coated tablet)?20?Milligram?1?Tabs?By Mouth?Daily saw palmetto (saw palmetto 450 mg oral capsule)?450?Milligram?1?Each?By Mouth?2 Times a Day tamsulosin (Flomax 0.4 mg oral capsule)?0.4?Milligram?1?Capsules?By Mouth?2 Timesa Day ? Inpatient Medications Medications (25) Active SCHEDULED: (18) ascorbic acid 500 mg Tab (Vitamin C) ??500 mg 1 Tabs, Oral, BID aspirin 81 mg Chew Tab (aspirin) ??81 mg 1 Tabs, Chewed, Daily atorvastatin 40 mg Tab (atorvastatin) ??40 mg 1 Tabs, Oral, qHS carvedilol 3.125 mg Tab (carvedilol) ??6.25 mg 2 Tabs, Oral, BID With Meals clopidogrel 75 mg Tab (Plavix) ??75 mg 1 Tabs, Oral, Daily cyanocobalamin 1000 mcg/mL INJ SOLN (cyanocobalamin) ??1,000 mcg 1 mL, IntraMuscular, qMonday cyclobenzaprine 10 mg Tab (cyclobenzaprine) ??10 mg 1 Tabs, Oral, qHS docusate sodium 100 mg Cap (Colace) ??100 mg 1 Caps, Oral, BID enoxaparin 100 mg/1 mL SubQ syringe (Lovenox) ??100 mg 1 mL, SubCutaneous, q12H famotidine 20 mg Tab (famotidine) ??20 mg 1 Tabs, Oral, BID finasteride 5 mg Tab (Proscar) ??5 mg 1 Tabs, Oral, Daily FLUoxetine 20 mg Cap (PROzac) ??20 mg 1 Caps, Oral, Daily furosemide 100 mg/10 mL vial (furosemide) ??60 mg 6 mL, IV Push, BID levothyroxine 25 mcg (0.025 mg) Tab (Synthroid) ??25 mcg 1 Tabs, Oral, Daily loratadine 10 mg Tab (loratadine) ??10 mg 1 Tabs, Oral, Daily potassium chloride 10 mEq ER Tab (potassium chloride) ??30 mEq 3 Tabs, Oral, q3H Interval Protocols (Potassium Chloride - Oral & IV) ??Protocol, N/A, Daily tamsulosin 0.4 mg SA Cap (Flomax) ??0.4 mg 1 Caps, Oral, BID CONTINUOUS: (1) diltiazem/0.7%NS 125 mg [5 mg/hr] + Premix 125 mL (dilTIAZem 125 mg [5 mg/hr] + Premix 125 mL) ??125 mL, IV, 5 mL/hr PRN: (6) acetaminophen 325 mg Tab (Tylenol) ??650 mg 2 Tabs, Oral, q4H diphenhydrAMINE 25 mg Cap (Benadryl) ??50 mg 2 Caps, Oral, qHS labetalol 20 mg/4 mL inj (labetalol) ??10 mg 2 mL, IV Push, q1H Interval levalbuterol 0.63 mg/3 mL Inh Janet (levalbuterol) ??0.63 mg 3 mL, Inhalation, q8H ondansetron 4 mg/2 mL vial (Zofran) ??4 mg 2 mL, IV Push, q8H senna 8.6 mg Tab senna gen (senna) ??17.2 mg 2 Tabs, Oral, Daily ? 72 hour Antibiotic History No qualifying data available... ?? Results CBC, BMP, Coagulation Trend (last 4 resulted) WBC 9.30 ?? 01/05/2023 ??04:37 7.50 ?? 01/02/2023 ??14:50 ? Hgb 13.10 ??L?? 01/05/2023 ??04:37 13.40 ??L?? 01/02/2023 ??14:50 ? Hct 38.20 ??L?? 01/05/2023 ??04:37 39.30 ??L?? 01/02/2023 ??14:50 ? Baso # Auto 0.0 ?? 01/02/2023 ??14:50 ? Baso % Auto 0.5 ?? 01/02/2023 ??14:50 ? Eos # Auto 0.2 ?? 01/02/2023 ??14:50 ? Eos % Auto 2.5 ?? 01/02/2023 ??14:50 ? Lymph # Auto 1.9 ?? 01/02/2023 ??14:50 ? Lymph % Auto 25.9 ?? 01/02/2023 ??14:50 ? [place] # Auto 0.7 ?? 01/02/2023 ??14:50 ? [place] % Auto 9.8 ?? 01/02/2023 ??14:50 ? Neut # Auto 4.6 ?? 01/02/2023 ??14:50 ? Neut % Auto 61.3 ?? 01/02/2023 ??14:50 ? Plt 168 ?? 01/05/2023 ??04:37 198 ?? 01/02/2023 ??14:50 ? Glucose Level 156 ??H?? 01/05/2023 ??04:37 152 ??H?? 01/03/2023 ??04:30 125 ??H?? 01/02/2023 ??14:50 ?? Sodium 137 ?? 01/05/2023 ??04:37 137 ?? 01/03/2023 ??04:30 143 ?? 01/02/2023 ??14:50 ?? Potassium 3.1 ??L?? 01/05/2023 ??04:37 3.5 ?? 01/03/2023 ??04:30 3.8 ?? 01/02/2023 ??14:50 ?? Chloride 103 ?? 01/05/2023 ??04:37 103 ?? 01/03/2023 ??04:30 105 ?? 01/02/2023 ??14:50 ?? CO2 30 ?? 01/05/2023 ??04:37 30 ?? 01/03/2023 ??04:30 31.2 ??H?? 01/02/2023 ??14:50 ?? BUN 18 ?? 01/05/2023 ??04:37 24 ??H?? 01/03/2023 ??04:30 22 ?? 01/02/2023 ??14:50 ?? Creatinine 1.1 ?? 01/05/2023 ??04:37 1.1 ?? 01/03/2023 ??04:30 0.97 ?? 01/02/2023 ??14:50 ?? BUN/Creat Ratio 16.36 ?? 01/05/2023 ??04:37 21.82 ?? 01/03/2023 ??04:30 22.68 ??H?? 01/02/2023 ??14:50 ?? Mg Lvl 2.0 ?? 01/03/2023 ??04:30 1.9 ?? 01/02/2023 ??14:50 ? Calcium 9.0 ?? 01/05/2023 ??04:37 8.9 ?? 01/03/2023 ??04:30 8.7 ?? 01/02/2023 ??14:50 ? Microbiology ?? Respiratory Panel PCR?? Completed?? Source: Nasopharyngeal Body Site: ?? Collected Dt/Tm: 01/02/2023 15:42 Last Updated Dt/Tm: 01/02/2023 16:53 ? Cardiology Labs BNP:??249 pg/mL??High (01/03/23 04:30:00) BNP:??407 pg/mL??High (01/02/23 14:50:00) Troponin TNIH: 18.36 ng/L (01/02/23 15:48:00) Troponin TNIH: 17.99 ng/L (01/02/23 14:50:00) ? Assessment/Plan Diagnoses ?? 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 Plan : ?on room air PO2 was 67??, O2 saturation with up ambulation??above 92 no need for home oxygen CPAP??12 cm H2O nighttime and as needed??daytime Continue??carvedilol and diuretics and follow nephrology recommendations bronchodilators only on as needed basis albuterol 1.25 mg every 8 hours Continue??DVT prophylaxis with Lovenox Discharge planning as per primary ? Electronically Signed By: Ashutosh Church MD On: 01.05.2023 10:25 CLEAT BLANKER * Josh Yanes MD: MODIFY, PERFORM, MODIFY Event Display: Progress Note-Physician Authored Date: Subjective Patient denies chest pain and SOB. He had DC cardioversion 200 J??on 01/04/23??,??converted to??sinus rhythm. ?? Brief History 77-year-old male with past medical history??of CHF, diabetes, hypertension, COPD on home O2??went to??Dr. Yanes's office complaining of significant shortness of breath and was found to be in A-fib??with RVR which is a new diagnosis for him.?? Since the patient was in mild to moderate respiratory distress he was referred to the emergency department at [facility] for further work-up.?? He was also complaining of retrosternal chest pain which was severe that time 10 out of 10 and retrosternal.?it was worsened by ambulation.?? At that time the patient was tachycardic and in A-fib. Upon arrival to the emergency department his heart rate was better controlled?? and his symptoms resolved.?? He denied any chest pain or significant shortness of breath in ED. ECG showing atrial fibrillation with RVR at [id number].??Right bundle branch block. ??Possible old inferior wall DC.?? PVCs. Troponins x2 negative , BNP 407., Chest x-ray shows pulmonary edema and/or bilateral pneumonic infiltrates/atelectasis more evident on the right persist. Chief Complaint/Reason for Consultation Chief Complaint: worsening shortness of breath and fast heart rate ?? Allergies Allergies ?(Active and Proposed Allergies Only) codeine? (Severity: Unknown severity, Onset: Unknown) ?Reactions: hives penicillin? (Severity: Unknown severity, Onset: Unknown) ?Reactions: hives ? Past Medical History Active Problems(5) CHF (congestive heart failure) COPD (chronic obstructive pulmonary disease) Diabetes HTN (hypertension) Hyperlipemia ? Past Surgical History No surgery history documented. ? Social History Alcohol Details:??Current, 1-2 times per year Substance Abuse Details:??Denies Tobacco Details:??Denies ? Family History No Family History documented. ? Spiritual History Comfort From Spiritual Practice: No [place]/Denomination: Church ?? Objective Measurements (most recent)?? Height 167.64 cm?Jesús RN, Donna G ??01/02 14:29 Weight 94.00 kg?Mckeon PCT, Zari ??01/05 06:29 Body Mass Index 33.84 kg/m2?Mcekon PCT, Zari ??01/04 06:33 Scale Type Bed scale?Mckeon PCT, Zari ??01/04 06:33 ? Vital Signs (24 hrs) Last Charted?? Minimum?? Maximum?? Temp?? L??36.2?? 01/05/2023 11:09?? 36.9?? 01/04/2023 23:14 ?? 36.9?? 01/04/2023 23:14?? Peripheral Pulse Rate?? 88?? 01/05/2023 11:09?? 87?? 01/04/2023 23:14 ?? 99?? 01/05/2023 07:36?? Resp Rate?? 18?? 01/05/2023 11:09?? 18?? 01/04/2023 23:14 ?? 18?? 01/04/2023 23:14?? SBP?? 100?? 01/05/2023 11:09?? 100?? 01/05/2023 11:09 ?? 118?? 01/05/2023 07:36?? DBP?? 65?? 01/05/2023 11:09?? 65?? 01/05/2023 11:09 ?? 79?? 01/05/2023 04:20?? MAP?? 77?? 01/05/2023 11:09?? 77?? 01/05/2023 11:09 ?? 92?? 01/05/2023 07:36?? SpO2?? 94?? 01/05/2023 11:09?? 94?? 01/04/2023 23:14 ?? 95?? 01/05/2023 04:20?? O2 Therapy?? Room air?? Room air?? Room air ? I&O 24 Hour Total? 01/02 16:59 01/05 07:00 01/04 07:00 01/03 07:00 01/02 07:00 ?? 01/05 21:50 01/05 21:50 01/05 06:59 01/04 06:59 01/03 06:59 Intake ? 2709.8 ?240 ? 1010 ? 1045 ?414.9 Output ? 4260 ?0 ? 1050 ? 1950 ? 1260 Net Total ?-1550.2 ?240 ?-40 ? -905 ? -845.1 ? Physical Exam ?? General: Awake, Alert, No acute distress. Appearance: Well nourished. Behavior: Appropriate. Eye: Normal conjunctiva. Anicteric sclerae Head: Normocephalic.?? Nontraumatic Neck: Supple, Non-tender, No JVD,??trachea midline Respiratory: Respiration??even and unlabored. Cardiovascular: Normal rate, Regular rhythm, No murmurs. Gastrointestinal: Non-tender, Non distended. Musculoskeletal: No deformity. Extremities: Good radial pulses bilaterally, No pedal edema. Skin: Warm, and Dry [...] (atorvastatin 40 mg oral tablet)?40?Milligram?1?Tabs?By Mouth?at Bedtime carvedilol (carvedilol 6.25 mg oral tablet)?6.25?Milligram?1?Tabs?By Mouth?2 Times a Day clopidogrel (Plavix 75 mg oral tablet)?75?Milligram?1?Tabs?By Mouth?Daily cyanocobalamin (cyanocobalamin 1000 mcg/mL injectable solution)?1,000?Microgram?Intramuscular?Every Sunday cyclobenzaprine (cyclobenzaprine 10 mg oral tablet)?10?Milligram?1?Tabs?By Mouth?at Bedtime docusate (docusate sodium 100 mg oral capsule)?100?Milligram?1?Capsules?By Mouth?2 Times a Day famotidine (famotidine 20 mg oral tablet)?20?Milligram?1?Tabs?By Mouth?2 Times a Day finasteride (Proscar 5 mg oral tablet)?5?Milligram?1?Tabs?By Mouth?Daily FLUoxetine (PROzac 20 mg oral capsule)?20?Milligram?1?Capsules?By Mouth?Daily furosemide (Lasix 80 mg oral tablet)?80?Milligram?1?Tabs?By Mouth?Daily levothyroxine (Synthroid 25 mcg (0.025 mg) oral tablet)?25?Microgram?1?Tabs?By Mouth?Daily loratadine (loratadine 10 mg oral tablet)?10?Milligram?1?Tabs?By Mouth?Daily metFORMIN (metFORMIN 500 mg oral tablet)?500?Milligram?1?Tabs?By Mouth?Daily?as needed?Blood Glucose (please specify)?for blood sugar over 200 metoprolol (Metoprolol Succinate ER) multivitamin with minerals (Centrum Silver oral tablet)?1?Tabs?By Mouth?2 Times a Day pantoprazole (Protonix 20 mg oral enteric coated tablet)?20?Milligram?1?Tabs?By Mouth?Daily saw palmetto (saw palmetto 450 mg oral capsule)?450?Milligram?1?Each?By Mouth?2 Times a Day tamsulosin (Flomax 0.4 mg oral capsule)?0.4?Milligram?1?Capsules?By Mouth?2 Timesa Day ? Inpatient Medications Medications (25) Active SCHEDULED: (18) amiodarone 200 mg Tab (amiodarone) ??200 mg 1 Tabs, Oral, Daily apixaban 5 mg Tab (Eliquis) ??5 mg 1 Tabs, Oral, BID ascorbic acid 500 mg Tab (Vitamin C) ??500 mg 1 Tabs, Oral, BID aspirin 81 mg Chew Tab (aspirin) ??81 mg 1 Tabs, Chewed, Daily atorvastatin 40 mg Tab (atorvastatin) ??40 mg 1 Tabs, Oral, qHS cyanocobalamin 1000 mcg/mL INJ SOLN (cyanocobalamin) ??1,000 mcg 1 mL, IntraMuscular, qMonday cyclobenzaprine 10 mg Tab (cyclobenzaprine) ??10 mg 1 Tabs, Oral, qHS docusate sodium 100 mg Cap (Colace) ??100 mg 1 Caps, Oral, BID famotidine 20 mg Tab (famotidine) ??20 mg 1 Tabs, Oral, BID finasteride 5 mg Tab (Proscar) ??5 mg 1 Tabs, Oral, Daily FLUoxetine 20 mg Cap (PROzac) ??20 mg 1 Caps, Oral, Daily furosemide 20 mg Tab (Lasix) ??20 mg 1 Tabs, Oral, BID levothyroxine 25 mcg (0.025 mg) Tab (Synthroid) ??25 mcg 1 Tabs, Oral, Daily loratadine 10 mg Tab (loratadine) ??10 mg 1 Tabs, Oral, Daily metoprolol succinate 25 mg XL Tab (Metoprolol Succinate ER) ??25 mg 1 Tabs, Oral, qHS potassium chloride 20 mEq ER Tab (potassium chloride) ??20 mEq 1 Tabs, Oral, Daily Protocols (Potassium Chloride - Oral & IV) ??Protocol, N/A, Daily tamsulosin 0.4 mg SA Cap (Flomax) ??0.4 mg 1 Caps, Oral, BID CONTINUOUS: (1) diltiazem/0.7%NS 125 mg [5 mg/hr] + Premix 125 mL (dilTIAZem 125 mg [5 mg/hr] + Premix 125 mL) ??125 mL, IV, 5 mL/hr PRN: (6) acetaminophen 325 mg Tab (Tylenol) ??650 mg 2 Tabs, Oral, q4H diphenhydrAMINE 25 mg Cap (Benadryl) ??50 mg 2 Caps, Oral, qHS labetalol 20 mg/4 mL inj (labetalol) ??10 mg 2 mL, IV Push, q1H Interval levalbuterol 0.63 mg/3 mL Inh Janet (levalbuterol) ??0.63 mg 3 mL, Inhalation, q8H ondansetron 4 mg/2 mL vial (Zofran) ??4 mg 2 mL, IV Push, q8H senna 8.6 mg Tab senna gen (senna) ??17.2 mg 2 Tabs, Oral, Daily ? 72 hour Antibiotic History No qualifying data available... ?? Results Recent Labs Blood Gases pH Arterial 7.440 (Normal)?? 01/04/2023 08:04 Art pCO2 45.8 mmHg (High)?? 01/04/2023 08:04 Art pO2 69.6 mmHg (Low)?? 01/04/2023 08:04 Art TempC,pH 7.440 (N/A)?? 01/04/2023 08:04 Art TempC,PCO2 45.8 mmHg (N/A)?? 01/04/2023 08:04 Art TempC,PO2 69.6 mmHg (N/A)?? 01/04/2023 08:04 Art HCO3 29.8 mmol/L (High)?? 01/04/2023 08:04 Art Base Excess 6.0 mmol/L (High)?? 01/04/2023 08:04 Art sO2 94 % (Normal)?? 01/04/2023 08:04 Art tHB 12.7 gm/dL (Low)?? 01/04/2023 08:04 Art O2 Hb 92 % (Low)?? 01/04/2023 08:04 Art Carboxyhemoglobin 1.5 % (Normal)?? 01/04/2023 08:04 Art Methemoglobin 0.3 % (Normal)?? 01/04/2023 08:04 POC Juan Antonio Test POS (N/A)?? 01/04/2023 08:04 POC Del Sys ROOM AIR (N/A)?? 01/04/2023 08:04 POC FIO2 21 % (N/A)?? 01/04/2023 08:04 POC Pt Temp 37.0 DegC (N/A)?? 01/04/2023 08:04 POC Site Radial Left (N/A)?? 01/04/2023 08:04 POC Sample Arterial (N/A)?? 01/04/2023 08:04 POC Vent Mode NO VENT (N/A)?? 01/04/2023 08:04 Art Hct 39.1 % (Low)?? 01/04/2023 08:04 Art Lactate 1.3 mmol/L (Normal)?? 01/04/2023 08:04 Notified By [id number] (N/A)?? 01/04/2023 08:04 Notified To and MELIZA CUETO RN (N/A)?? 01/04/2023 08:04 Notified Note ROOM AIR ABG (N/A)?? 01/04/2023 08:04 Vending Machine Assembler ID Renae (N/A)?? 01/04/2023 08:04 ?? General Chemistry Glucose Level 156 mg/dL (High)?? 01/05/2023 04:37 POC Glucose 153 mg/dL (High)?? 01/05/2023 11:22 Arterial Glucose 156 mg/dL (High)?? 01/04/2023 08:04 Sodium 137 mmol/L (Normal)?? 01/05/2023 04:37 Art Na 139 mmol/L (Normal)?? 01/04/2023 08:04 Potassium 3.1 mmol/L (Low)?? 01/05/2023 04:37 Art K 3.2 mmol/L (Low)?? 01/04/2023 08:04 Chloride 103 mmol/L (Normal)?? 01/05/2023 04:37 CO2 30 mmol/L (Normal)?? 01/05/2023 04:37 Anion Gap 4 mmol/L (Normal)?? 01/05/2023 04:37 BUN 18 mg/dL (Normal)?? 01/05/2023 04:37 Creatinine 1.1 mg/dL (Normal)?? 01/05/2023 04:37 BUN/Creat Ratio 16.36 Ratio (Normal)?? 01/05/2023 04:37 Calcium 9.0 mg/dL (Normal)?? 01/05/2023 04:37 Art iCa 1.3 mmol/L (High)?? 01/04/2023 08:04 Albumin. Level 3.5 gm/dL (Normal)?? 01/05/2023 12:27 TP 6.7 gm/dL (Normal)?? 01/05/2023 12:27 T Bili 1.70 mg/dL (High)?? 01/05/2023 12:27 D Bili 0.40 mg/dL (High)?? 01/05/2023 12:27 I Bili 1.30 mg/dL (High)?? 01/05/2023 12:27 Alk Phos 88 Intl_units/L (Normal)?? 01/05/2023 12:27 AST 19 Intl_units/L (Normal)?? 01/05/2023 12:27 ALT 23 Intl_units/L (Normal)?? 01/05/2023 12:27 eGFR Cr 69 mL/min/1.73m2 (N/A)?? 01/05/2023 04:37 eGFR Pediatric Not Reported mL/min/1.73m2 (N/A)?? 01/05/2023 04:37 LD 152 (N/A)?? 01/05/2023 12:27 ?? General Hematology WBC 9.30 x10e3/mcL (Normal)?? 01/05/2023 04:37 RBC 3.94 x10e6/mcL (Low)?? 01/05/2023 04:37 Hgb 13.10 gm/dL (Low)?? 01/05/2023 04:37 Hct 38.20 % (Low)?? 01/05/2023 04:37 MCV 96.9 Femtoliters (Normal)?? 01/05/2023 04:37 MCH 33.30 pg (High)?? 01/05/2023 04:37 MCHC 34.30 gm/dL (Normal)?? 01/05/2023 04:37 RDW-CV 14.40 % (Normal)?? 01/05/2023 04:37 RDW-SD 49.40 Femtoliters (High)?? 01/05/2023 04:37 Plt 168 x10e3/mcL (Normal)?? 01/05/2023 04:37 MPV 8.40 Femtoliters (Normal)?? 01/05/2023 04:37 ? CBC, BMP, Coagulation Trend (last 4 resulted) WBC 9.30 ?? 01/05/2023 ??04:37 7.50 ?? 01/02/2023 ??14:50 ? Hgb 13.10 ??L?? 01/05/2023 ??04:37 13.40 ??L?? 01/02/2023 ??14:50 ? Hct 38.20 ??L?? 01/05/2023 ??04:37 39.30 ??L?? 01/02/2023 ??14:50 ? Baso # Auto 0.0 ?? 01/02/2023 ??14:50 ? Baso % Auto 0.5 ?? 01/02/2023 ??14:50 ? Eos # Auto 0.2 ?? 01/02/2023 ??14:50 ? Eos % Auto 2.5 ?? 01/02/2023 ??14:50 ? Lymph # Auto 1.9 ?? 01/02/2023 ??14:50 ? Lymph % Auto 25.9 ?? 01/02/2023 ??14:50 ? [place] # Auto 0.7 ?? 01/02/2023 ??14:50 ? [place] % Auto 9.8 ?? 01/02/2023 ??14:50 ? Neut # Auto 4.6 ?? 01/02/2023 ??14:50 ? Neut % Auto 61.3 ?? 01/02/2023 ??14:50 ? Plt 168 ?? 01/05/2023 ??04:37 198 ?? 01/02/2023 ??14:50 ? Glucose Level 156 ??H?? 01/05/2023 ??04:37 152 ??H?? 01/03/2023 ??04:30 125 ??H?? 01/02/2023 ??14:50 ?? Sodium 137 ?? 01/05/2023 ??04:37 137 ?? 01/03/2023 ??04:30 143 ?? 01/02/2023 ??14:50 ?? Potassium 3.1 ??L?? 01/05/2023 ??04:37 3.5 ?? 01/03/2023 ??04:30 3.8 ?? 01/02/2023 ??14:50 ?? Chloride 103 ?? 01/05/2023 ??04:37 103 ?? 01/03/2023 ??04:30 105 ?? 01/02/2023 ??14:50 ?? CO2 30 ?? 01/05/2023 ??04:37 30 ?? 01/03/2023 ??04:30 31.2 ??H?? 01/02/2023 ??14:50 ?? BUN 18 ?? 01/05/2023 ??04:37 24 ??H?? 01/03/2023 ??04:30 22 ?? 01/02/2023 ??14:50 ?? Creatinine 1.1 ?? 01/05/2023 ??04:37 1.1 ?? 01/03/2023 ??04:30 0.97 ?? 01/02/2023 ??14:50 ?? BUN/Creat Ratio 16.36 ?? 01/05/2023 ??04:37 21.82 ?? 01/03/2023 ??04:30 22.68 ??H?? 01/02/2023 ??14:50 ?? Mg Lvl 2.0 ?? 01/03/2023 ??04:30 1.9 ?? 01/02/2023 ??14:50 ? Calcium 9.0 ?? 01/05/2023 ??04:37 8.9 ?? 01/03/2023 ??04:30 8.7 ?? 01/02/2023 ??14:50 ?? Albumin. Level 3.5 ?? 01/05/2023 ??12:27 ? T Bili 1.70 ??H?? 01/05/2023 ??12:27 ? D Bili 0.40 ??H?? 01/05/2023 ??12:27 ? I Bili 1.30 ??H?? 01/05/2023 ??12:27 ? Alk Phos 88 ?? 01/05/2023 ??12:27 ? AST 19 ?? 01/05/2023 ??12:27 ? ALT 23 ?? 01/05/2023 ??12:27 ? Microbiology ?? Respiratory Panel PCR?? Completed?? Source: Nasopharyngeal Body Site: ?? Collected Dt/Tm: 01/02/2023 15:42 Last Updated Dt/Tm: 01/02/2023 16:53 ? Cardiology Labs BNP:??249 pg/mL??High (01/03/23 04:30:00) BNP:??407 pg/mL??High (01/02/23 14:50:00) Troponin TNIH: 18.36 ng/L (01/02/23 15:48:00) Troponin TNIH: 17.99 ng/L (01/02/23 14:50:00) ? Uric/LDH (Last Within 24hrs) LD: 152 (12:27) ? Images Images ?? US TTE on 01/04/23 Summary: 1. Left ventricular ejection [...] 12. Lipomatous hypertrophy of the atrial septum. ?? ECG??on 01/02/23 ??atrial fibrillation with RVR at [id number].??Right bundle branch block. ??Possible old inferior wall DC.?? PVCs ? BILATERAL VENOUS DUPLEX ULTRASOUND OF THE LOWER EXTREMITIES 01/03/23 ?? Static ultrasound images with Doppler of the bilateral lower extremity venous system demonstrates no evidence of deep venous thrombosis. ??Normal augmentation and compression was demonstrated. ?? IMPRESSION: ?? NEGATIVE DEEP VENOUS THROMBOSIS STUDY. ? ONE VIEW FRONTAL CHEST RADIOGRAPH??01/02/23 ?? CLINICAL HISTORY: Palpitations ?? COMPARISON: 12/17/2022 frontal chest radiograph ?? FINDINGS: ? Radiopacities project over the chest, more evident on the right. The chest is clearof gross pleural fluid and pneumothorax. Heart size evaluation is limited. ?? IMPRESSION: ? Findings suggestive of pulmonary edema and/or bilateral pneumonic infiltrates/atelectasis more evident on the right persist. ? Echocardiogram on 12/01/19 Summary: 1. Left ventricular ejection fraction, by visual estimation, is 60 to 65%. 2. Normal global left ventricular systolic function. 3. Moderately increased left ventricular septal thickness. 4. Pseudonormal pattern of LV diastolic filling. 5. Severely dilated left atrium. 6. Trivial pericardial effusion, as described above. 7. Mild aortic regurgitation. 8. Mild aortic valve sclerosis is present, with no evidence of aortic valve stenosis. ?? Assessment/Plan Diagnoses Acute on chronic diastolic heart failure secondary to hypertrophic cardiomyopathy ??(I50.33) Adult BMI 34.0-34.9 kg/sq m ??(Z68.34) Atrial fibrillation with RVR ??(I48.91) BPH (benign prostatic hyperplasia) ??(N40.0) COPD mixed type ??(J44.9) Chronic hypoxemic respiratory failure ??(J96.11) Dyspnea on exertion ??(R06.09) Hypothyroid ??(E03.9) Non-insulin treated type 2 diabetes mellitus ??(E11.9) ? Atrial fibrillation with RVR ??(I48.91) New diagnosis.??A fib with??RVR on presentation. Unknown onset of A-fib. He had DC cardioversion??on 01/04/23 ??200 J,??converted to??sinus rhythm Discontinue Plavix Start Eliquis 5 mg BID Start Amiodarone 200 mg daily ?? Acute on chronic congestive heart failure with reduced ejection fraction: US TTE on 01/14/23 shows Left ventricular ejection fraction, by visual estimation, is 30 to 35%. Volume overloaded on admission. BNP 407-->249 Discontinue IV diuretics.?He was receiving Furosemide 60 mg IV BID. Start ??Furosemide 20 mg??po BID along with 20 mEq of KCL per day?? Monitor fluid balance. Potassium 3.1. potassium chloride 30 meq X2 Given Strict I & O Daily weights Monitor creatinine electrolytes. Optimize medical therapy as tolerated. ?? CAD:?? Stable. ??No evidence of ischemia this time. ??Negative troponins. ??EKG with no ischemic changes.?? Previous history of PCI. Continue Aspirin 81 mg daily Discontinue Plavix , due to high risk of bleeding, will continue aspirin Start??Eliquis 5 mg BID Discontinue Carvedilol 6.25 BID due to BP being labile Start Metoprolol Succinate??25 mg?? qHS Optimize medical therapy and risk factor modifications. ?? COPD mixed type ??(J44.9) On chronic home O2 due to hypoxemia. ??Currently stable.?? No respiratory distress at this time. ??case management?? consult also??to help to assist with??home oxygen concentrator. Appreciate pulmonary input ?Type 2 diabetes mellitus?? (E11.9) keep??blood??glucose??between 120-180 mmHg, titrate as needed initiate hypoglycemia management protocol as needed Diabetic diet correction SS insulin, glucose checks, Goal of HbA1c < 7 ?? Hypertension: Monitor and adjust therapy as needed. ?? Hyperlipidemia: Atorvastatin 40 mg Qhs LDL goal < 100 and Non-HDL < 130 ?? Constipation: continue docusate sodium??and senna ?? Thank you for the consult. ?Order Date/Time ??Order Action ??Order Name ??Order Detail ??01/05/2023 12:12 ??Discontinue ??furosemide 100 mg/10 mL vial ??60 mg, 6 mL, IV Push, BID ??01/05/2023 12:12 ??Order ??furosemide 20 mg Tab ??20 mg, 1 Tabs, Oral, BID ??01/05/2023 12:12 ??Order ??potassium chloride 20 mEq ER Tab ??20 mEq, 1 Tabs, Oral, Daily ??01/05/2023 12:11 ??Order ??amiodarone 200 mg Tab ??200 mg, 1 Tabs, Oral, Daily ??01/05/2023 12:10 ??Order ??Hep/Li Fx ??Blood, Nurse collect, Timed Study collect, 01/05/23 12:11:00 CLEAT BLANKER, Stop date 01/05/23 12:11:00 CLEAT BLANKER ??01/05/2023 12:08 ??Order ??apixaban 5 mg Tab ??5 mg, 1 Tabs, Oral, BID ??01/05/2023 12:08 ??Discontinue ??carvedilol 3.125 mg Tab ??6.25 mg, 2 Tabs, Oral, BID With Meals ??01/05/2023 12:08 ??Discontinue ??clopidogrel 75 mg Tab ??75 mg, 1 Tabs, Oral, Daily ??01/05/2023 12:08 ??Discontinue ??enoxaparin 100 mg/1 mL SubQ syringe ??100 mg, 1 mL, SubCutaneous, q12H ??01/05/2023 12:08 ??Order ??metoprolol succinate 25 mg XL Tab ??25 mg, 1 Tabs, Oral, qHS ? Electronically Signed By: Josh Yanes MD On: 01.05.2023 22:53 CLEAT BLANKER * Josh Yanes MD: PERFORM Event Display: Progress Note-Physician Authored Date: [id number] Subjective He had DC cardioversion 200 J??today morning??,??converted to??sinus rhythm. ?? Brief History 77-year-old male with past medical history??of CHF, diabetes, hypertension, COPD on home O2??went to??Dr. Yanes's office complaining of significant shortness of breath and was found to be in A-fib??with RVR which is a new diagnosis for him.?? Since the patient was in mild to moderate respiratory distress he was referred to the emergency department at [facility] for further work-up.?? He was also complaining of retrosternal chest pain which was severe that time 10 out of 10 and retrosternal.?it was worsened by ambulation.?? At that time the patient was tachycardic and in A-fib. Upon arrival to the emergency department his heart rate was better controlled?? and his symptoms resolved.?? He denied any chest pain or significant shortness of breath in ED. ECG showing atrial fibrillation with RVR at [id number].??Right bundle branch block. ??Possible old inferior wall DC.?? PVCs. Troponins x2 negative , BNP 407., Chest x-ray shows pulmonary edema and/or bilateral pneumonic infiltrates/atelectasis more evident on the right persist. Chief Complaint/Reason for Consultation Chief Complaint: worsening shortness of breath and fast heartrate ?? Allergies Allergies ?(Active and Proposed Allergies Only) codeine? (Severity: Unknown severity, Onset: Unknown) ?Reactions: hives penicillin? (Severity: Unknown severity, Onset: Unknown) ?Reactions: hives ? Past Medical History Active Problems(5) CHF (congestive heart failure) COPD (chronic obstructive pulmonary disease) Diabetes HTN (hypertension) Hyperlipemia ? Past Surgical History No surgery history documented. ? Social History Alcohol Details:??Current, 1-2 times per year Substance Abuse Details:??Denies Tobacco Details:??Denies ? Family History No Family History documented. ? Spiritual History Comfort From Spiritual Practice: No [place]/Denomination: Church ?? Objective Measurements (most recent)?? Height 167.64 cm?Jesús NEFF, Donna Donald ??01/02 14:29 Weight 95.10 kg?Mckeon PCT, Zari ??01/04 06:33 Body Mass Index 33.84 kg/m2?Mckeon PCT, Zari ??01/04 06:33 Scale Type Bed scale?Mckeon PCT, Zari ??01/04 06:33 ? Vital Signs (24 hrs) Last Charted?? Minimum?? Maximum?? Temp?? L??36.2?? 01/04/2023 19:20?? L??35?? 01/04/2023 04:24 ?? 37?? 01/04/2023 00:07?? Heart Rate Monitored?? 76?? 01/04/2023 08:39?? L??55?? 01/04/2023 00:22 ?? H??113?? 01/03/2023 23:41?? Resp Rate?? 18?? 01/04/2023 19:20?? C??9?? 01/04/2023 08:25 ?? C??28?? 01/04/2023 00:07?? SBP?? 117?? 01/04/2023 19:20?? 103?? 01/04/2023 04:01 ?? H??147?? 01/04/2023 08:25?? DBP?? 72?? 01/04/2023 19:20?? 61?? 01/04/2023 08:27 ?? C??101?? 01/04/2023 08:19?? MAP?? 87?? 01/04/2023 19:20?? 80?? 01/04/2023 06:24 ?? 115?? 01/04/2023 08:21?? SpO2?? L??92?? 01/04/2023 19:20?? L??90?? 01/04/2023 03:23 ?? 100?? 01/04/2023 00:22?? O2 Therapy?? Room air? I&O 24 Hour Total? 01/02 16:59 01/04 07:00 01/03 07:00 01/02 07:00 01/01 07:00 ?? 01/04 19:23 01/04 19:23 01/04 06:59 01/03 06:59 01/02 06:59 Intake ? 2419.8 ?960 ? 1045 ?414.9 ?0 Output ? 4110 ?900 ? 1950 ? 1260 ?0 Net Total ?-1690.2 ? 60 ? -905 ? -845.1 ?0 ? Physical Exam General: Awake, Alert, No acute distress. Appearance: Well nourished. Behavior: Appropriate. Eye: Normal conjunctiva. Anicteric sclerae Head: Normocephalic.?? Nontraumatic Neck: Supple, Non-tender, No JVD,??trachea midline Respiratory: Respiration??even and unlabored. Cardiovascular: Normal rate, Regular rhythm, No murmurs. Gastrointestinal: Non-tender, Non distended. Musculoskeletal: No deformity. Extremities: Good radial pulses bilaterally, No pedal edema. Skin: Warm, and Dry Neurologic: Speech clear and coherent. Alert, Oriented. Psychiatric: Cooperative, Appropriate mood & affect. _ Home Medications ascorbic acid (Vitamin C 500 mg oral capsule)?500?Milligram?1?Capsules?By Mouth?2Times a Day aspirin (aspirin 81 mg oral tablet, chewable)?81?Milligram?1?Tabs?Chewed?Daily atorvastatin (atorvastatin 40 mg oral tablet)?40?Milligram?1?Tabs?By Mouth?at Bedtime carvedilol (carvedilol 6.25 mg oral tablet)?6.25?Milligram?1?Tabs?By Mouth?2 Times a Day clopidogrel (Plavix 75 mg oral tablet)?75?Milligram?1?Tabs?By Mouth?Daily cyanocobalamin (cyanocobalamin 1000 mcg/mL injectable solution)?1,000?Microgram?Intramuscular?Every Sunday cyclobenzaprine (cyclobenzaprine 10 mg oral tablet)?10?Milligram?1?Tabs?By Mouth?at Bedtime finasteride (Proscar 5 mg oral tablet)?5?Milligram?1?Tabs?By Mouth?Daily FLUoxetine (PROzac 20 mg oral capsule)?20?Milligram?1?Capsules?By Mouth?Daily furosemide (Lasix 80 mg oral tablet)?80?Milligram?1?Tabs?By Mouth?Daily levothyroxine (Synthroid 25 mcg (0.025 mg) oral tablet)?25?Microgram?1?Tabs?By Mouth?Daily loratadine (loratadine 10 mg oral tablet)?10?Milligram?1?Tabs?By Mouth?Daily metFORMIN (metFORMIN 500 mg oral tablet)?500?Milligram?1?Tabs?By Mouth?Daily?as needed?Blood Glucose (please specify)?for blood sugar over 200 multivitamin with minerals (Centrum Silver oral tablet)?1?Tabs?By Mouth?2 Times a Day pantoprazole (Protonix 20 mg oral enteric coated tablet)?20?Milligram?1?Tabs?By Mouth?Daily saw palmetto (saw palmetto 450 mg oral capsule)?450?Milligram?1?Each?By Mouth?2 Times a Day tamsulosin (Flomax 0.4 mg oral capsule)?0.4?Milligram?1?Capsules?By Mouth?2 Timesa Day ? Inpatient Medications Medications (23) Active SCHEDULED: (16) ascorbic acid 500 mg Tab (Vitamin C) ??500 mg 1 Tabs, Oral, BID aspirin 81 mg Chew Tab (aspirin) ??81 mg 1 Tabs, Chewed, Daily atorvastatin 40 mg Tab (atorvastatin) ??40 mg 1 Tabs, Oral, qHS carvedilol 3.125 mg Tab (carvedilol) ??6.25 mg 2 Tabs, Oral, BID With Meals clopidogrel 75 mg Tab (Plavix) ??75 mg 1 Tabs, Oral, Daily cyanocobalamin 1000 mcg/mL INJ SOLN (cyanocobalamin) ??1,000 mcg 1 mL, IntraMuscular, qMonday cyclobenzaprine 10 mg Tab (cyclobenzaprine) ??10 mg 1 Tabs, Oral, qHS docusate sodium 100 mg Cap (Colace) ??100 mg 1 Caps, Oral, BID enoxaparin 100 mg/1 mL SubQ syringe (Lovenox) ??100 mg 1 mL, SubCutaneous, q12H famotidine 20 mg Tab (famotidine) ??20 mg 1 Tabs, Oral, BID finasteride 5 mg Tab (Proscar) ??5 mg 1 Tabs, Oral, Daily FLUoxetine 20 mg Cap (PROzac) ??20 mg 1 Caps, Oral, Daily furosemide 100 mg/10 mL vial (furosemide) ??60 mg 6 mL, IV Push, BID levothyroxine 25 mcg (0.025 mg) Tab (Synthroid) ??25 mcg 1 Tabs, Oral, Daily loratadine 10 mg Tab (loratadine) ??10 mg 1 Tabs, Oral, Daily tamsulosin 0.4 mg SA Cap (Flomax) ??0.4 mg 1 Caps, Oral, BID CONTINUOUS: (1) diltiazem/0.7%NS 125 mg [5 mg/hr] + Premix 125 mL (dilTIAZem 125 mg [5 mg/hr] + Premix 125 mL) ??125 mL, IV, 5 mL/hr PRN: (6) acetaminophen 325 mg Tab (Tylenol) ??650 mg 2 Tabs, Oral, q4H diphenhydrAMINE 25 mg Cap (Benadryl) ??50 mg 2 Caps, Oral, qHS labetalol 20 mg/4 mL inj (labetalol) ??10 mg 2 mL, IV Push, q1H Interval levalbuterol 0.63 mg/3 mL Inh Janet (levalbuterol) ??0.63 mg 3 mL, Inhalation, q8H ondansetron 4 mg/2 mL vial (Zofran) ??4 mg 2 mL, IV Push, q8H senna 8.6 mg Tab senna gen (senna) ??17.2 mg 2 Tabs, Oral, Daily ? IV Titrations (Last 24 hrs) Most Recent Infusions (Max of 3)? 01/03 23:53 ? dilTIAZem 125 mg [5 mg/hr] + Premix 125 mL 10 mg/hr ? 72 hour Antibiotic History No qualifying data available... ?? Results Recent Labs Blood Gases pH Arterial 7.440 (Normal)?? 01/04/2023 08:04 Art pCO2 45.8 mmHg (High)?? 01/04/2023 08:04 Art pO2 69.6 mmHg (Low)?? 01/04/2023 08:04 Art TempC,pH 7.440 (N/A)?? 01/04/2023 08:04 Art TempC,PCO2 45.8 mmHg (N/A)?? 01/04/2023 08:04 Art TempC,PO2 69.6 mmHg (N/A)?? 01/04/2023 08:04 Art HCO3 29.8 mmol/L (High)?? 01/04/2023 08:04 Art Base Excess 6.0 mmol/L (High)?? 01/04/2023 08:04 Art sO2 94 % (Normal)?? 01/04/2023 08:04 Art tHB 12.7 gm/dL (Low)?? 01/04/2023 08:04 Art O2 Hb 92 % (Low)?? 01/04/2023 08:04 Art Carboxyhemoglobin 1.5 % (Normal)?? 01/04/2023 08:04 Art Methemoglobin 0.3 % (Normal)?? 01/04/2023 08:04 POC Juan Antonio Test POS (N/A)?? 01/04/2023 08:04 POC Del Sys ROOM AIR (N/A)?? 01/04/2023 08:04 POC FIO2 21 % (N/A)?? 01/04/2023 08:04 POC Pt Temp 37.0 DegC (N/A)?? 01/04/2023 08:04 POC Site Radial Left (N/A)?? 01/04/2023 08:04 POC Sample Arterial (N/A)?? 01/04/2023 08:04 POC Vent Mode NO VENT (N/A)?? 01/04/2023 08:04 Art Hct 39.1 % (Low)?? 01/04/2023 08:04 Art Lactate 1.3 mmol/L (Normal)?? 01/04/2023 08:04 Notified By [id number] (N/A)?? 01/04/2023 08:04 Notified To and MELIZA CUETO RN (N/A)?? 01/04/2023 08:04 Notified Note ROOM AIR ABG (N/A)?? 01/04/2023 08:04 Vending Machine Assembler ID [email or web address] (N/A)?? 01/04/2023 08:04 ?? Cardiac BNP 249.0 pg/mL (High)?? 01/03/2023 04:30 ?? General Chemistry Glucose Level 152 mg/dL (High)?? 01/03/2023 04:30 POC Glucose 160 mg/dL (High)?? 01/04/2023 16:32 Arterial Glucose 156 mg/dL (High)?? 01/04/2023 08:04 Sodium 137 mmol/L (Normal)?? 01/03/2023 04:30 Art Na 139 mmol/L (Normal)?? 01/04/2023 08:04 Potassium 3.5 mmol/L (Normal)?? 01/03/2023 04:30 Art K 3.2 mmol/L (Low)?? 01/04/2023 08:04 Chloride 103 mmol/L (Normal)?? 01/03/2023 04:30 CO2 30 mmol/L (Normal)?? 01/03/2023 04:30 Anion Gap 4 mmol/L (Normal)?? 01/03/2023 04:30 BUN 24 mg/dL (High)?? 01/03/2023 04:30 Creatinine 1.1 mg/dL (Normal)?? 01/03/2023 04:30 BUN/Creat Ratio 21.82 Ratio (Normal)?? 01/03/2023 04:30 Calcium 8.9 mg/dL (Normal)?? 01/03/2023 04:30 Art iCa 1.3 mmol/L (High)?? 01/04/2023 08:04 Mg Lvl 2.0 mg/dL (Normal)?? 01/03/2023 04:30 Estimated Creatinine Clearance 49.94 mL/min ()?? 01/03/2023 04:56 eGFR Cr 69 mL/min/1.73m2 (N/A)?? 01/03/2023 04:30 eGFR Pediatric Not Reported mL/min/1.73m2 (N/A)?? 01/03/2023 04:30 ?? Other Coagulation DDimer ULT 406 ng/mL FEU (Normal)?? 01/03/2023 15:13 ? CBC, BMP, Coagulation Trend (last 4 resulted) WBC 7.50 ?? 01/02/2023 ??14:50 ? Hgb 13.40 ??L?? 01/02/2023 ??14:50 ? Hct 39.30 ??L?? 01/02/2023 ??14:50 ? Baso # Auto 0.0 ?? 01/02/2023 ??14:50 ? Baso % Auto 0.5 ?? 01/02/2023 ??14:50 ? Eos # Auto 0.2 ?? 01/02/2023 ??14:50 ? Eos % Auto 2.5 ?? 01/02/2023 ??14:50 ? Lymph # Auto 1.9 ?? 01/02/2023 ??14:50 ? Lymph % Auto 25.9 ?? 01/02/2023 ??14:50 ? [place] # Auto 0.7 ?? 01/02/2023 ??14:50 ? [place] % Auto 9.8 ?? 01/02/2023 ??14:50 ? Neut # Auto 4.6 ?? 01/02/2023 ??14:50 ? Neut % Auto 61.3 ?? 01/02/2023 ??14:50 ? Plt 198 ?? 01/02/2023 ??14:50 ? Glucose Level 152 ??H?? 01/03/2023 ??04:30 125 ??H?? 01/02/2023 ??14:50 ? Sodium 137 ?? 01/03/2023 ??04:30 143 ?? 01/02/2023 ??14:50 ? Potassium 3.5 ?? 01/03/2023 ??04:30 3.8 ?? 01/02/2023 ??14:50 ? Chloride 103 ?? 01/03/2023 ??04:30 105 ?? 01/02/2023 ??14:50 ? CO2 30 ?? 01/03/2023 ??04:30 31.2 ??H?? 01/02/2023 ??14:50 ? BUN 24 ??H?? 01/03/2023 ??04:30 22 ?? 01/02/2023 ??14:50 ? Creatinine 1.1 ?? 01/03/2023 ??04:30 0.97 ?? 01/02/2023 ??14:50 ? BUN/Creat Ratio 21.82 ?? 01/03/2023 ??04:30 22.68 ??H?? 01/02/2023 ??14:50 ? Mg Lvl 2.0 ?? 01/03/2023 ??04:30 1.9 ?? 01/02/2023 ??14:50 ? Calcium 8.9 ?? 01/03/2023 ??04:30 8.7 ?? 01/02/2023 ??14:50 ? Microbiology ?? Respiratory Panel PCR?? Completed?? Source: Nasopharyngeal Body Site: ?? Collected Dt/Tm: 01/02/2023 15:42 Last Updated Dt/Tm: 01/02/2023 16:53 ? Cardiology Labs BNP:??249 pg/mL??High (01/03/23 04:30:00) BNP:??407 pg/mL??High (01/02/23 14:50:00) Troponin TNIH: 18.36 ng/L (01/02/23 15:48:00) Troponin TNIH: 17.99 ng/L (01/02/23 14:50:00) ?? Blood Gases (Last Within 24hrs) pH Arterial: 7.44 (08:04) Art pO2:??69.6 mmHg??Low (08:04) Art pCO2:??45.8 mmHg??High (08:04) Art HCO3:??29.8 mmol/L??High (08:04) Art sO2: 94 % (08:04) ? Images US TTE on 01/04/23 Summary: 1. Left ventricular ejection [...] 12. Lipomatous hypertrophy of the atrial septum. ?? ECG??on 01/02/23 ??atrial fibrillation with RVR at [id number].??Right bundle branch block. ??Possible old inferior wall DC.?? PVCs ? BILATERAL VENOUS DUPLEX ULTRASOUND OF THE LOWER EXTREMITIES 01/03/23 ?? Static ultrasound images with Doppler of the bilateral lower extremity venous system demonstrates no evidence of deep venous thrombosis. ??Normal augmentation and compression was demonstrated. ?? IMPRESSION: ?? NEGATIVE DEEP VENOUS THROMBOSIS STUDY. ? ONE VIEW FRONTAL CHEST RADIOGRAPH??01/02/23 ?? CLINICAL HISTORY: Palpitations ?? COMPARISON: 12/17/2022 frontal chest radiograph ?? FINDINGS: ? Radiopacities project over the chest, more evident on the right. The chest is clearof gross pleural fluid and pneumothorax. Heart size evaluation is limited. ?? IMPRESSION: ? Findings suggestive of pulmonary edema and/or bilateral pneumonic infiltrates/atelectasis more evident on the right persist. ? Echocardiogram on 12/01/19 Summary: 1. Left ventricular ejection fraction, by visual estimation, is 60 to 65%. 2. Normal global left ventricular systolic function. 3. Moderately increased left ventricular septal thickness. 4. Pseudonormal pattern of LV diastolic filling. 5. Severely dilated left atrium. 6. Trivial pericardial effusion, as described above. 7. Mild aortic regurgitation. 8. Mild aortic valve sclerosis is present, with no evidence of aortic valve stenosis. ? Assessment/Plan Diagnoses Acute on chronic diastolic heart failure secondary to hypertrophic cardiomyopathy ??(I50.33) Adult BMI 34.0-34.9 kg/sq m ??(Z68.34) Atrial fibrillation with RVR ??(I48.91) BPH (benign prostatic hyperplasia) ??(N40.0) COPD mixed type ??(J44.9) Chronic hypoxemic respiratory failure ??(J96.11) Dyspnea on exertion ??(R06.09) Hypothyroid ??(E03.9) Non-insulin treated type 2 diabetes mellitus ??(E11.9) ? Atrial fibrillation with RVR ??(I48.91) New diagnosis.?? RVR on presentation currently better controlled diltiazem drip. Unknown onset of A-fib. He had DC cardioversion??today morning??200 J,??converted to??sinus rhythm ?? Acute on chronic congestive heart failure with reduced ejection fraction: US TTE on 01/14/23 shows Left ventricular ejection fraction, by visual estimation, is 30 to 35%. Volume overloaded at this time. BNP 407-->249 ??IV diuretics.?Furosemide 60 mg IV BID. Monitor fluid balance and adjust diuretics as needed. Strict I & O Daily weights Discontinue diltiazem Monitor creatinine electrolytes. Optimize medical therapy as tolerated. ?? CAD:?? Stable. ??No evidence of ischemia this time. ??Negative troponins. ??EKG with no ischemic changes.?? Previous history of PCI. Continue Aspirin 81 mg daily Continue Plavix 75 mg daily Continue Carvedilol 6.25 BID Optimize medical therapy and risk factor modifications. ?? COPD mixed type ??(J44.9) On chronic home O2 due to hypoxemia. ??Currently stable.?? No respiratory distress at this time. We will get??case management also??to help to assist with??home oxygen concentrator. ?Type 2 diabetes mellitus?? (E11.9) keep??blood??glucose??between 120-180 mmHg, titrate as needed initiate hypoglycemia management protocol as needed Diabetic diet correction SS insulin, glucose checks, Goal of HbA1c < 7 ?? Hypertension: Monitor and adjust therapy as needed. ?? Hyperlipidemia: Atorvastatin 40 mg Qhs LDL goal < 100 and Non-HDL < 130 ?? Constipation:??We will start on docusate sodium??and senna ?? Thank you for the consult. ?Order Date/Time ??Order Action ??Order Name ??Order Detail ??01/04/2023 18:17 ??Modify ??Diet ??01/02/23 23:26:00 CLEAT BLANKER, Diabetic/Carb Consistent ??? Medium (75g) ??01/04/2023 10:01 ??Modify ??Diet ??01/02/23 23:26:00 CLEAT BLANKER, Clear Liquids ??01/04/2023 08:31 ??Order ??CV EKG ??01/04/23 8:31:00 CLEAT BLANKER, Routine ??01/04/2023 08:19 ??Order ??fentaNYL 100 mcg/2 mL PF inj 2 mL ??25 mcg, 0.5 mL, IV Push, Once ??01/04/2023 08:18 ??Order ??midazolam 1 mg/mL inj 2 mL ??1 mg, 1 mL, IV Push, Once ??01/04/2023 08:14 ??Order ??fentaNYL 100 mcg/2 mL PF inj 2 mL ??25 mcg, 0.5 mL, IV Push, Once ??01/04/2023 08:13 ??Order ??midazolam 1 mg/mL inj 2 mL ??1 mg, 1 mL, IV Push, Once ??01/04/2023 08:10 ??Order ??benzocaine/butamben/tetracaine topical 14%-2%-2% Solution 20gm ??1 Sprays, Oral, Once ??01/04/2023 06:29 ??Order ??US TRINY Probe Place I/RPT No Con ??01/04/23 6:29:00 CLEAT BLANKER, Routine, Reason: Other (Please Specify), Reason: Atrial fibrillation, Transport Mode: Patient Bed ??01/04/2023 06:29 ??Order ??CL Retanner Order ??01/04/23 6:29:00 CLEAT BLANKER, Routine, Reason: Cardioversion, Transport Mode: Patient Bed ??01/04/2023 01:43 ??Modify ??Diet ??01/02/23 23:26:00 CLEAT BLANKER, NPO - Except for Medications ? Electronically Signed By: Josh Yanes MD On: 01.04.2023 22:34 CLEAT BLANKER * Tarun MODI, Mili: PERFORM Event Display: Progress Note-Physician Authored Date: Subjective ?? Patient seen and examined, chart reviewed. Taking over the care of this patient today. ? CC. ??77/M with COPD on Home O2 , chronic hypoxemic resp failure. CHF.?? DM2, HTN. HLD. Hypothyroidism. BPH. Depression , Hx Paroxysmal A Fib Rxed at [facility] overnight and DCed without Cardio involvement, was seen at [facility] today found to be in A Fib RVR with?? severe chest pain 10/10 , respdistress, weakness ?? EKG : atrial fibrillation with??poor ??R wave progression.?? Possible old inferior wall DC.?? PVCs.Troponins negative x2.?? BNP 407. Chest x-ray suggestive of pulmonary edema ?24 Hour Interval Course Pt s/p TRINY cardioversion by Dr. Lira off Cardizem gtt Denies CP, palpitations or SOB 6 min walk - 92% on RA ? Chief Complaint/Reason for Consultation Chief Complaint: worsening shortness of breath and fast heartrate ?? Allergies Allergies ?(Active and Proposed Allergies Only) codeine? (Severity: Unknown severity, Onset: Unknown) ?Reactions: hives penicillin? (Severity: Unknown severity, Onset: Unknown) ?Reactions: hives ? Past Medical History Active Problems(5) CHF (congestive heart failure) COPD (chronic obstructive pulmonary disease) Diabetes HTN (hypertension) Hyperlipemia ? Functional Assessments ? Objective Measurements (most recent)?? Height 167.64 cm?Jesús RN, Donna G ??01/02 14:29 Weight 95.10 kg?Mckeon PCT, Zari ??01/04 06:33 Body Mass Index 33.84 kg/m2?Mckeon PCT, Zari ??01/04 06:33 Scale Type Bed scale?Mckeon PCT, Zari ??01/04 06:33 ? Vital Signs (24 hrs) Last Charted?? Minimum?? Maximum?? Temp?? L??36.2?? 01/04/2023 19:20?? L??35?? 01/04/2023 04:24 ?? 37?? 01/04/2023 00:07?? Heart Rate Monitored?? 76?? 01/04/2023 08:39?? L??55?? 01/04/2023 00:22 ?? H??113?? 01/03/2023 23:41?? Resp Rate?? 18?? 01/04/2023 19:20?? C??9?? 01/04/2023 08:25 ?? C??28?? 01/04/2023 00:07?? SBP?? 117?? 01/04/2023 19:20?? 103?? 01/04/2023 04:01 ?? H??147?? 01/04/2023 08:25?? DBP?? 72?? 01/04/2023 19:20?? 61?? 01/04/2023 08:27 ?? C??101?? 01/04/2023 08:19?? MAP?? 87?? 01/04/2023 19:20?? 80?? 01/04/2023 06:24 ?? 115?? 01/04/2023 08:21?? SpO2?? L??92?? 01/04/2023 19:20?? L??90?? 01/04/2023 03:23 ?? 100?? 01/04/2023 00:22?? O2 Therapy?? Room air? I&O 24 Hour Total? 01/02 16:59 01/04 07:00 01/03 07:00 01/02 07:00 01/01 07:00 ?? 01/04 22:15 01/04 22:15 01/04 06:59 01/03 06:59 01/02 06:59 Intake ? 2469.8 ? 1010 ? 1045 ?414.9 ?0 Output ? 4110 ?900 ? 1950 ? 1260 ?0 Net Total ?-1640.2 ?110 ? -905 ? -845.1 ?0 ? Mental Status Exam ? Basic ADLs ? Mobility & Ambulation Level PT Bed Mobility Bed Mobility Roll Left: Does not occur (01/04/23) Bed Mobility Roll Right: Rehab Complete independence (01/04/23) Bed Mobility Supine to Sit: Rehab Complete independence (01/04/23) Bed Mobility Sit to Supine: Rehab Complete independence (01/04/23) Bed Mobility Scooting: Rehab Complete independence (01/04/23) PT Transfer Mobility Transfer Sit to Stand Rehab: Close supervision (01/04/23) Transfer Stand to Sit Rehab: Close supervision (01/04/23) Transfer Bed to and From Chair Rehab: Does not occur (01/04/23) Transfer Toilet Rehab: Does not occur (01/04/23) PT Ambulation Ambulation Level Rehab: Close supervision (01/04/23) Ambulation Distance: 1000 ft (01/04/23) Ambulation Device Utilized: None (01/04/23) ?? Therapeutic Activity ? Stroke Assessments [place] Coma Scale Eye Opening Response Black: Spontaneously (01/04/23 08:00:00) Best Verbal Response [place]: Oriented and converses (01/04/23 08:00:00) Best Motor Response [place]: Obeys commands (01/04/23 08:00:00) Black Coma Score: 15 (01/04/23 08:00:00) ? Physical Exam General: Alert, in no acute distress. Mental Status: Oriented to person, place and time. Head: Normocephalic. Eyes: . PERRL Ear, Nose and Throat: Oropharynx clear, mucous membranes moist. Ears and nose without lesions Neck: Supple, Full range of motion. Respiratory: CTA. No wheezing, rales or rhonchi. Cardiovascular. Regular rate and rhythm, no murmurs. Gastrointestinal: Abdomen soft, no??distention, no??tenderness. Nl bowel sounds. Genitourinary: No costovertebral angle tenderness. Neurologic: Cranial nerves II-XII grossly intact. No focal neurological deficits.?? Moves all extremities spontaneously. Skin: No rashes or lesions. No edema. Musculoskeletal: No cyanosis or clubbing. No gross deformities. Normal range of motion. _ Inpatient Medications Medications (23) Active SCHEDULED: (16) ascorbic acid 500 mg Tab (Vitamin C) ??500 mg 1 Tabs, Oral, BID aspirin 81 mg Chew Tab (aspirin) ??81 mg 1 Tabs, Chewed, Daily atorvastatin 40 mg Tab (atorvastatin) ??40 mg 1 Tabs, Oral, qHS carvedilol 3.125 mg Tab (carvedilol) ??6.25 mg 2 Tabs, Oral, BID With Meals clopidogrel 75 mg Tab (Plavix) ??75 mg 1 Tabs, Oral, Daily cyanocobalamin 1000 mcg/mL INJ SOLN (cyanocobalamin) ??1,000 mcg 1 mL, IntraMuscular, qMonday cyclobenzaprine 10 mg Tab (cyclobenzaprine) ??10 mg 1 Tabs, Oral, qHS docusate sodium 100 mg Cap (Colace) ??100 mg 1 Caps, Oral, BID enoxaparin 100 mg/1 mL SubQ syringe (Lovenox) ??100 mg 1 mL, SubCutaneous, q12H famotidine 20 mg Tab (famotidine) ??20 mg 1 Tabs, Oral, BID finasteride 5 mg Tab (Proscar) ??5 mg 1 Tabs, Oral, Daily FLUoxetine 20 mg Cap (PROzac) ??20 mg 1 Caps, Oral, Daily furosemide 100 mg/10 mL vial (furosemide) ??60 mg 6 mL, IV Push, BID levothyroxine 25 mcg (0.025 mg) Tab (Synthroid) ??25 mcg 1 Tabs, Oral, Daily loratadine 10 mg Tab (loratadine) ??10 mg 1 Tabs, Oral, Daily tamsulosin 0.4 mg SA Cap (Flomax) ??0.4 mg 1 Caps, Oral, BID CONTINUOUS: (1) diltiazem/0.7%NS 125 mg [5 mg/hr] + Premix 125 mL (dilTIAZem 125 mg [5 mg/hr] + Premix 125 mL) ??125 mL, IV, 5 mL/hr PRN: (6) acetaminophen 325 mg Tab (Tylenol) ??650 mg 2 Tabs, Oral, q4H diphenhydrAMINE 25 mg Cap (Benadryl) ??50 mg 2 Caps, Oral, qHS labetalol 20 mg/4 mL inj (labetalol) ??10 mg 2 mL, IV Push, q1H Interval levalbuterol 0.63 mg/3 mL Inh Janet (levalbuterol) ??0.63 mg 3 mL, Inhalation, q8H ondansetron 4 mg/2 mL vial (Zofran) ??4 mg 2 mL, IV Push, q8H senna 8.6 mg Tab senna gen (senna) ??17.2 mg 2 Tabs, Oral, Daily ? IV Titrations (Last 24 hrs) Most Recent Infusions (Max of 3)? 01/03 23:53 ? dilTIAZem 125 mg [5 mg/hr] + Premix 125 mL 10 mg/hr ? 72 hour Antibiotic History No qualifying data available... ?? Results Recent Labs Blood Gases pH Arterial 7.440 (Normal)?? 01/04/2023 08:04 Art pCO2 45.8 mmHg (High)?? 01/04/2023 08:04 Art pO2 69.6 mmHg (Low)?? 01/04/2023 08:04 Art TempC,pH 7.440 (N/A)?? 01/04/2023 08:04 Art TempC,PCO2 45.8 mmHg (N/A)?? 01/04/2023 08:04 Art TempC,PO2 69.6 mmHg (N/A)?? 01/04/2023 08:04 Art HCO3 29.8 mmol/L (High)?? 01/04/2023 08:04 Art Base Excess 6.0 mmol/L (High)?? 01/04/2023 08:04 Art sO2 94 % (Normal)?? 01/04/2023 08:04 Art tHB 12.7 gm/dL (Low)?? 01/04/2023 08:04 Art O2 Hb 92 % (Low)?? 01/04/2023 08:04 Art Carboxyhemoglobin 1.5 % (Normal)?? 01/04/2023 08:04 Art Methemoglobin 0.3 % (Normal)?? 01/04/2023 08:04 POC Juan Antonio Test POS (N/A)?? 01/04/2023 08:04 POC Del Sys ROOM AIR (N/A)?? 01/04/2023 08:04 POC FIO2 21 % (N/A)?? 01/04/2023 08:04 POC Pt Temp 37.0 DegC (N/A)?? 01/04/2023 08:04 POC Site Radial Left (N/A)?? 01/04/2023 08:04 POC Sample Arterial (N/A)?? 01/04/2023 08:04 POC Vent Mode NO VENT (N/A)?? 01/04/2023 08:04 Art Hct 39.1 % (Low)?? 01/04/2023 08:04 Art Lactate 1.3 mmol/L (Normal)?? 01/04/2023 08:04 Notified By [id number] (N/A)?? 01/04/2023 08:04 Notified To and MELIZA CUETO RN (N/A)?? 01/04/2023 08:04 Notified Note ROOM AIR ABG (N/A)?? 01/04/2023 08:04 Vending Machine Assembler ID [id number] (N/A)?? 01/04/2023 08:04 ?? Cardiac BNP 249.0 pg/mL (High)?? 01/03/2023 04:30 ?? General Chemistry Glucose Level 152 mg/dL (High)?? 01/03/2023 04:30 POC Glucose 160 mg/dL (High)?? 01/04/2023 16:32 Arterial Glucose 156 mg/dL (High)?? 01/04/2023 08:04 Sodium 137 mmol/L (Normal)?? 01/03/2023 04:30 Art Na 139 mmol/L (Normal)?? 01/04/2023 08:04 Potassium 3.5 mmol/L (Normal)?? 01/03/2023 04:30 Art K 3.2 mmol/L (Low)?? 01/04/2023 08:04 Chloride 103 mmol/L (Normal)?? 01/03/2023 04:30 CO2 30 mmol/L (Normal)?? 01/03/2023 04:30 Anion Gap 4 mmol/L (Normal)?? 01/03/2023 04:30 BUN 24 mg/dL (High)?? 01/03/2023 04:30 Creatinine 1.1 mg/dL (Normal)?? 01/03/2023 04:30 BUN/Creat Ratio 21.82 Ratio (Normal)?? 01/03/2023 04:30 Calcium 8.9 mg/dL (Normal)?? 01/03/2023 04:30 Art iCa 1.3 mmol/L (High)?? 01/04/2023 08:04 Mg Lvl 2.0 mg/dL (Normal)?? 01/03/2023 04:30 Estimated Creatinine Clearance 49.94 mL/min ()?? 01/03/2023 04:56 eGFR Cr 69 mL/min/1.73m2 (N/A)?? 01/03/2023 04:30 eGFR Pediatric Not Reported mL/min/1.73m2 (N/A)?? 01/03/2023 04:30 ?? Other Coagulation DDimer ULT 406 ng/mL FEU (Normal)?? 01/03/2023 15:13 ? Abnormal Labs ?? Blood Gases ??Art Base Excess ??6.0 mmol/L (High) ??01/04/2023 08:04 ??Art HCO3 ??29.8 mmol/L (High) ??01/04/2023 08:04 ??Art Hct ??39.1 % (Low) ??01/04/2023 08:04 ??Art O2 Hb ??92 % (Low) ??01/04/2023 08:04 ??Art pCO2 ??45.8 mmHg (High) ??01/04/2023 08:04 ??Art pO2 ??69.6 mmHg (Low) ??01/04/2023 08:04 ??Art tHB ??12.7 gm/dL (Low) ??01/04/2023 08:04 ? General Chemistry ??Art K ??3.2 mmol/L (Low) ??01/04/2023 08:04 ??Art iCa ??1.3 mmol/L (High) ??01/04/2023 08:04 ??Arterial Glucose ??156 mg/dL (High) ??01/04/2023 08:04 ??POC Glucose ??160 mg/dL (High) ??01/04/2023 16:32 ? Note: Critical results are displayed in red. ? CBC, BMP, Coagulation Trend (last 4 resulted) WBC 7.50 ?? 01/02/2023 ??14:50 ? Hgb 13.40 ??L?? 01/02/2023 ??14:50 ? Hct 39.30 ??L?? 01/02/2023 ??14:50 ? Baso # Auto 0.0 ?? 01/02/2023 ??14:50 ? Baso % Auto 0.5 ?? 01/02/2023 ??14:50 ? Eos # Auto 0.2 ?? 01/02/2023 ??14:50 ? Eos % Auto 2.5 ?? 01/02/2023 ??14:50 ? Lymph # Auto 1.9 ?? 01/02/2023 ??14:50 ? Lymph % Auto 25.9 ?? 01/02/2023 ??14:50 ? [place] # Auto 0.7 ?? 01/02/2023 ??14:50 ? [place] % Auto 9.8 ?? 01/02/2023 ??14:50 ? Neut # Auto 4.6 ?? 01/02/2023 ??14:50 ? Neut % Auto 61.3 ?? 01/02/2023 ??14:50 ? Plt 198 ?? 01/02/2023 ??14:50 ? Glucose Level 152 ??H?? 01/03/2023 ??04:30 125 ??H?? 01/02/2023 ??14:50 ? Sodium 137 ?? 01/03/2023 ??04:30 143 ?? 01/02/2023 ??14:50 ? Potassium 3.5 ?? 01/03/2023 ??04:30 3.8 ?? 01/02/2023 ??14:50 ? Chloride 103 ?? 01/03/2023 ??04:30 105 ?? 01/02/2023 ??14:50 ? CO2 30 ?? 01/03/2023 ??04:30 31.2 ??H?? 01/02/2023 ??14:50 ? BUN 24 ??H?? 01/03/2023 ??04:30 22 ?? 01/02/2023 ??14:50 ? Creatinine 1.1 ?? 01/03/2023 ??04:30 0.97 ?? 01/02/2023 ??14:50 ? BUN/Creat Ratio 21.82 ?? 01/03/2023 ??04:30 22.68 ??H?? 01/02/2023 ??14:50 ? Mg Lvl 2.0 ?? 01/03/2023 ??04:30 1.9 ?? 01/02/2023 ??14:50 ? Calcium 8.9 ?? 01/03/2023 ??04:30 8.7 ?? 01/02/2023 ??14:50 ? Blood Glucose Trend POC Glucose:??160 mg/dL??High (01/04/23 16:32:00) POC Glucose:??210 mg/dL??High (01/04/23 11:20:00) POC Glucose:??200 mg/dL??High (01/04/23 06:14:00) ? Microbiology ?? Respiratory Panel PCR?? Completed?? Source: Nasopharyngeal Body Site: ?? Collected Dt/Tm: 01/02/2023 15:42 Last Updated Dt/Tm: 01/02/2023 16:53 ? Blood Gases (Last Within 24hrs) pH Arterial: 7.44 (08:04) Art pO2:??69.6 mmHg??Low (08:04) Art pCO2:??45.8 mmHg??High (08:04) Art HCO3:??29.8 mmol/L??High (08:04) Art sO2: 94 % (08:04) ? Assessment/Plan Diagnoses Acute on chronic diastolic heart failure secondary to hypertrophic cardiomyopathy ??(I50.33) Adult BMI 34.0-34.9 kg/sq m ??(Z68.34) Atrial fibrillation with RVR ??(I48.91) BPH (benign prostatic hyperplasia) ??(N40.0) COPD mixed type ??(J44.9) Chronic hypoxemic respiratory failure ??(J96.11) Dyspnea on exertion ??(R06.09) Hypothyroid ??(E03.9) Non-insulin treated type 2 diabetes mellitus ??(E11.9) ?? Atrial fibrillation with RVR (I48.91):??Cont with telemetry sp TRINY Cardioversion today NSR Cont with Carvedilol, lovenox sq ?? Adult BMI 34.0-34.9 kg/sq m (Z68.34):??Lifestyle modification advised ?? BPH (benign prostatic hyperplasia) (N40.0):??Cont with flomax ?? COPD mixed type (J44.9):??Cont with inhalers Currently on RA 6 min walk test - lowest O2 sats 92% ?? Hypothyroid (E03.9):??Cont with home meds ?? Acute on chronic diastolic heart failure secondary to hypertrophic cardiomyopathy (I50.33):??Lasix 60 mg IV bid recheck electrolytes and renal function in am adjust as needed Strict I/O Cont with plavix, ASA, atorvastatin ? I have seen patient and spend 25 min. evaluating the patient, formulating plan of care, d/w nursingstaff, and patient. All questions answered. More than half the time was face to face with patient. ?? Electronically Signed By: Mili Mcneil MD On: 01.04.2023 22:15 CLEAT BLANKER * Ranjit MODI, Ashutosh Quiroga: PERFORM Event Display: Progress Note-Physician Authored Date: Subjective Pulmonary critical care He had DC cardioversion this morning??200 J he is back in sinus rhythm??currently on room air O2 saturation 93 arterial blood gases obtained on room air??is??PCO2 was??69 pH 7.44 PCO2 of 45??patient is feeling better respiratory fields he is less dyspneic denies any chest pain denies any cough, no fever had been??reported??liters chest x-ray showing pulmonary edema??he is off Cardizem drip he is onp.o. carvedilol he is getting diuretic therapy ?? Admission data 77/M with COPD previously on Home O2 for hypoxemic resp failure. ??Obstructive sleep apnea on home CPAP??,,??congestive heart failure??reported ejection fraction of 35%,?? Non insulin Rxed DM2, HTN. HLD. Hypothyroidism. BPH. Depression , Hx Paroxysmal A Fib Rxed at [facility] overnight and DCed without Cardio involvement , was seen at DR Joaquín Collier today found to be in A Fib RVR with?? severe chest pain 10/10 , resp distress, weakness?? sent to ER Heart for eval and Rx.?? In the ER he was placed onCardizem drip and O2 via nasal cannula??EKG showed A-fib with??poor R progression troponin had beennegative x2??beta natruretic peptide level 407??chest x-ray showing bilateral pulmonary edema, and arterial blood gases pH was 7.42 PCO2 48 PO2??108, patient remained on Cardizem drip at 10 mg/h he was started on carvedilol??and started on IV Lasix??is currently on oxygen??3 L nasal cannula he is sitting up at the edge of the bed his O2 saturation is??97% breathing at rate of 18 blood pressure is97/67 heart rate of??81 temperature 36.6, patient denies any chest pain denies??cough ? Review of Systems Review of Systems: Constitutional:??no [...] HTN (hypertension) Hyperlipemia ? Past Surgical History No surgery history documented. ? Social History Alcohol Details:??Current, 1-2 times per year Substance Abuse Details:??Denies Tobacco Details:??Denies ? Family History No Family History documented. ? Objective Measurements (most recent)?? Height 167.64 cm?Jesús NEFF, Donna Donald ??01/02 14:29 Weight 95.10 kg?Mckeon PCT, Zari ??01/04 06:33 Body Mass Index 33.84 kg/m2?Mckeon PCT, Zari ??01/04 06:33 Scale Type Bed scale?Mckeon PCT, Zari ??01/04 06:33 ? Vital Signs (24 hrs) Last Charted?? Minimum?? Maximum?? Temp?? 36.7?? 01/04/2023 07:00?? L??35?? 01/04/2023 04:24 ?? 37?? 01/04/2023 00:07?? Heart Rate Monitored?? 76?? 01/04/2023 08:39?? L??55?? 01/04/2023 00:22 ?? H??113?? 01/03/2023 23:41?? Resp Rate?? L??10?? 01/04/2023 08:39?? C??9?? 01/04/2023 08:25 ?? C??28?? 01/04/2023 00:07?? SBP?? 129?? 01/04/2023 08:39?? 100?? 01/03/2023 13:00 ?? H??149?? 01/03/2023 14:00?? DBP?? 79?? 01/04/2023 08:39?? 61?? 01/04/2023 08:27 ?? C??120?? 01/03/2023 15:00?? MAP?? 98?? 01/04/2023 08:39?? 80?? 01/04/2023 06:24 ?? 128?? 01/03/2023 15:00?? SpO2?? 100?? 01/04/2023 08:39?? L??90?? 01/04/2023 03:23 ?? 100?? 01/04/2023 00:22? I&O 24 Hour Total? 01/02 16:59 01/04 07:00 01/03 07:00 01/02 07:00 01/01 07:00 ?? 01/04 09:59 01/04 09:59 01/04 06:59 01/03 06:59 01/02 06:59 Intake ? 1459.8 ?0 ? 1045 ?414.9 ?0 Output ? 3210 ?0 ? 1950 ? 1260 ?0 Net Total ?-1750.2 ?0 ? -905 ? -845.1 ?0 ? Physical Exam General: Obesity BMI [...] appropriate mood and affect _ Home Medications ascorbic acid (Vitamin C 500 mg oral capsule)?500?Milligram?1?Capsules?By Mouth?2Times a Day aspirin (aspirin 81 mg oral tablet, chewable)?81?Milligram?1?Tabs?Chewed?Daily atorvastatin (atorvastatin 40 mg oral tablet)?40?Milligram?1?Tabs?By Mouth?at Bedtime carvedilol (carvedilol 6.25 mg oral tablet)?6.25?Milligram?1?Tabs?By Mouth?2 Times a Day clopidogrel (Plavix 75 mg oral tablet)?75?Milligram?1?Tabs?By Mouth?Daily cyanocobalamin (cyanocobalamin 1000 mcg/mL injectable solution)?1,000?Microgram?Intramuscular?Every Sunday cyclobenzaprine (cyclobenzaprine 10 mg oral tablet)?10?Milligram?1?Tabs?By Mouth?at Bedtime finasteride (Proscar 5 mg oral tablet)?5?Milligram?1?Tabs?By Mouth?Daily FLUoxetine (PROzac 20 mg oral capsule)?20?Milligram?1?Capsules?By Mouth?Daily furosemide (Lasix 80 mg oral tablet)?80?Milligram?1?Tabs?By Mouth?Daily levothyroxine (Synthroid 25 mcg (0.025 mg) oral tablet)?25?Microgram?1?Tabs?By Mouth?Daily loratadine (loratadine 10 mg oral tablet)?10?Milligram?1?Tabs?By Mouth?Daily metFORMIN (metFORMIN 500 mg oral tablet)?500?Milligram?1?Tabs?By Mouth?Daily?as needed?Blood Glucose (please specify)?for blood sugar over 200 multivitamin with minerals (Centrum Silver oral tablet)?1?Tabs?By Mouth?2 Times a Day pantoprazole (Protonix 20 mg oral enteric coated tablet)?20?Milligram?1?Tabs?By Mouth?Daily saw palmetto (saw palmetto 450 mg oral capsule)?450?Milligram?1?Each?By Mouth?2 Times a Day tamsulosin (Flomax 0.4 mg oral capsule)?0.4?Milligram?1?Capsules?By Mouth?2 Timesa Day ? Inpatient Medications Medications (23) Active SCHEDULED: (16) ascorbic acid 500 mg Tab (Vitamin C) ??500 mg 1 Tabs, Oral, BID aspirin 81 mg Chew Tab (aspirin) ??81 mg 1 Tabs, Chewed, Daily atorvastatin 40 mg Tab (atorvastatin) ??40 mg 1 Tabs, Oral, qHS carvedilol 3.125 mg Tab (carvedilol) ??6.25 mg 2 Tabs, Oral, BID With Meals clopidogrel 75 mg Tab (Plavix) ??75 mg 1 Tabs, Oral, Daily cyanocobalamin 1000 mcg/mL INJ SOLN (cyanocobalamin) ??1,000 mcg 1 mL, IntraMuscular, qMonday cyclobenzaprine 10 mg Tab (cyclobenzaprine) ??10 mg 1 Tabs, Oral, qHS docusate sodium 100 mg Cap (Colace) ??100 mg 1 Caps, Oral, BID enoxaparin 100 mg/1 mL SubQ syringe (Lovenox) ??100 mg 1 mL, SubCutaneous, q12H famotidine 20 mg Tab (famotidine) ??20 mg 1 Tabs, Oral, BID finasteride 5 mg Tab (Proscar) ??5 mg 1 Tabs, Oral, Daily FLUoxetine 20 mg Cap (PROzac) ??20 mg 1 Caps, Oral, Daily furosemide 100 mg/10 mL vial (furosemide) ??60 mg 6 mL, IV Push, BID levothyroxine 25 mcg (0.025 mg) Tab (Synthroid) ??25 mcg 1 Tabs, Oral, Daily loratadine 10 mg Tab (loratadine) ??10 mg 1 Tabs, Oral, Daily tamsulosin 0.4 mg SA Cap (Flomax) ??0.4 mg 1 Caps, Oral, BID CONTINUOUS: (1) diltiazem/0.7%NS 125 mg [5 mg/hr] + Premix 125 mL (dilTIAZem 125 mg [5 mg/hr] + Premix 125 mL) ??125 mL, IV, 5 mL/hr PRN: (6) acetaminophen 325 mg Tab (Tylenol) ??650 mg 2 Tabs, Oral, q4H diphenhydrAMINE 25 mg Cap (Benadryl) ??50 mg 2 Caps, Oral, qHS labetalol 20 mg/4 mL inj (labetalol) ??10 mg 2 mL, IV Push, q1H Interval levalbuterol 0.63 mg/3 mL Inh Janet (levalbuterol) ??0.63 mg 3 mL, Inhalation, q8H ondansetron 4 mg/2 mL vial (Zofran) ??4 mg 2 mL, IV Push, q8H senna 8.6 mg Tab senna gen (senna) ??17.2 mg 2 Tabs, Oral, Daily ? IV Titrations (Last 24 hrs) Most Recent Infusions (Max of 3)? 01/03 23:53 ? dilTIAZem 125 mg [5 mg/hr] + Premix 125 mL 10 mg/hr ? 72 hour Antibiotic History No qualifying data available... ?? Results CBC, BMP, Coagulation Trend (last 4 resulted) WBC 7.50 ?? 01/02/2023 ??14:50 ? Hgb 13.40 ??L?? 01/02/2023 ??14:50 ? Hct 39.30 ??L?? 01/02/2023 ??14:50 ? Baso # Auto 0.0 ?? 01/02/2023 ??14:50 ? Baso % Auto 0.5 ?? 01/02/2023 ??14:50 ? Eos # Auto 0.2 ?? 01/02/2023 ??14:50 ? Eos % Auto 2.5 ?? 01/02/2023 ??14:50 ? Lymph # Auto 1.9 ?? 01/02/2023 ??14:50 ? Lymph % Auto 25.9 ?? 01/02/2023 ??14:50 ? [place] # Auto 0.7 ?? 01/02/2023 ??14:50 ? [place] % Auto 9.8 ?? 01/02/2023 ??14:50 ? Neut # Auto 4.6 ?? 01/02/2023 ??14:50 ? Neut % Auto 61.3 ?? 01/02/2023 ??14:50 ? Plt 198 ?? 01/02/2023 ??14:50 ? Glucose Level 152 ??H?? 01/03/2023 ??04:30 125 ??H?? 01/02/2023 ??14:50 ? Sodium 137 ?? 01/03/2023 ??04:30 143 ?? 01/02/2023 ??14:50 ? Potassium 3.5 ?? 01/03/2023 ??04:30 3.8 ?? 01/02/2023 ??14:50 ? Chloride 103 ?? 01/03/2023 ??04:30 105 ?? 01/02/2023 ??14:50 ? CO2 30 ?? 01/03/2023 ??04:30 31.2 ??H?? 01/02/2023 ??14:50 ? BUN 24 ??H?? 01/03/2023 ??04:30 22 ?? 01/02/2023 ??14:50 ? Creatinine 1.1 ?? 01/03/2023 ??04:30 0.97 ?? 01/02/2023 ??14:50 ? BUN/Creat Ratio 21.82 ?? 01/03/2023 ??04:30 22.68 ??H?? 01/02/2023 ??14:50 ? Mg Lvl 2.0 ?? 01/03/2023 ??04:30 1.9 ?? 01/02/2023 ??14:50 ? Calcium 8.9 ?? 01/03/2023 ??04:30 8.7 ?? 01/02/2023 ??14:50 ? Microbiology ?? Respiratory Panel PCR?? Completed?? Source: Nasopharyngeal Body Site: ?? Collected Dt/Tm: 01/02/2023 15:42 Last Updated Dt/Tm: 01/02/2023 16:53 ? Cardiology Labs BNP:??249 pg/mL??High (01/03/23 04:30:00) BNP:??407 pg/mL??High (01/02/23 14:50:00) Troponin TNIH: 18.36 ng/L (01/02/23 15:48:00) Troponin TNIH: 17.99 ng/L (01/02/23 14:50:00) ?? Blood Gases (Last Within 24hrs) pH Arterial: 7.44 (08:04) Art pO2:??69.6 mmHg??Low (08:04) Art pCO2:??45.8 mmHg??High (08:04) Art HCO3:??29.8 mmol/L??High (08:04) Art sO2: 94 % (08:04) ?? 2 d??D echo ??Summary: 1. Left ventricular ejection fraction, by visual [...] with no evidence of any intracardiac shunt. 11. 12. Lipomatous hypertrophy of the atrial septum. [id number] Josh Yanes Electronically signed by [id number] Josh Yanes Signature Date/Time: 01/04/2023/9:14:05 AMFinal Assessment/Plan Diagnoses Acute on chronic??respiratory failure in a patient who was previously on home oxygen therapy?? Acute on chronic congestive heart failure with reduced ejection fraction 30-35 Atrial fibrillation with rapid ventricular response, electrical??cardioversion??January 04, 2022 back in sinus Chronic obstructive pulmonary disease former heavy smoker Obstructive sleep apnea??and hypersomnia on on home CPAP Adult BMI 34.0-34.9 kg/sq m BPH Hypothyroid diabetes mellitus? Plan : Oxygen 2 L nasal cannula??daytime, arterial blood gases on room air PO2 was 67??I will perform 6-minute walk test on room air to assess the need for home oxygen therapy??patient previously had home oxygen CPAP??12 cm H2O nighttime and as needed??daytime Continue??carvedilol and follow cardiology recommendations is a Diuresis with IV Lasix??strict intake output and follow her renal function bronchodilators only on as needed basis albuterol 1.25 mg every 8 hours Continue??DVT prophylaxis with Lovenox Bilateral lower extremity venous Doppler??was negative Head of bed elevation aspiration precaution Condition discussed with the patient's family at the bedside Management discussed with the nurse in charge Time spent at the patient's bedside 35 minutes We will continue close observation and management as detailed above ?Order Date/Time ??Order Action ??Order Name ??Order Detail ??01/04/2023 09:58 ??Order ??Respiratory Assessment ??01/04/23 9:58:00 CLEAT BLANKER, Stop date 01/04/23 9:58:00 CLEAT BLANKER, 6 minute walk test oxygen ??saturation assessment, 01/04/23 9:58:00 CLEAT BLANKER ??01/04/2023 01:12 ??Discontinue ??albuterol 1.25mg/3 mL inh janet ??1.25 mg, 3 mL, NEB, q8H, PRN: Wheezing ? Electronically Signed By: Ashutosh Church MD On: 01.04.2023 10:07 CLEAT BLANKER * Kavitha MODI, Margi Dennison: PERFORM Event Display: Progress Note-Physician Authored Date: [id number] Subjective ?? Date of Service :?? 2??/?? Hospitalist Progress Note ?? Chief Complaint ?? Mr Albert Chang : 77/M with COPD on Home O2 , chronic hypoxemic resp failure. CHF. Non insulin Rxed DM2, HTN. HLD. Hypothyroidism. BPH. Depression , Hx Paroxysmal A Fib Rxed at [facility] overnight and DCed without Cardio involvement , was seen at DR Joaquín Collier today found to be in A Fib RVR with?? severe chest pain 08/28 , resp distress, weakness?? sent to ER Heart for eval and Rx. ?? Received at Heart ER comfortable on IV Cardizem infusion at 10mg/hr ,on O2 via NC EKG : atrial fibrillation with??poor ??R wave progression.?? Possible old inferior wall DC.?? PVCs.Troponins negative x2.?? BNP 407. Chest x-ray suggestive of pulmonary edema ?24 Hour Interval Course No chest pain, +??shortness of breath, even at rest on O2 ??palpitations, dizziness, near syncope. Cumulative Negative 0.84 L No leg pain. No abdominal pain, nausea, emesis. No lower urinary tract symptoms.No fever. No arrhythmia. Chief Complaint/Reason for Consultation Chief Complaint: worsening shortness of breath and fast heartrate ?? Past Medical History Active Problems(5) CHF (congestive heart failure) COPD (chronic obstructive pulmonary disease) Diabetes HTN (hypertension) Hyperlipemia ? Past Surgical History No surgery history documented. ? Functional Assessments ? Objective Measurements (most recent)?? Height 167.64 cm?Jesús NEFF, Donna Donald ??01/02 14:29 Weight 95.10 kg?Mckeon PCT, Zari ??01/04 06:33 Body Mass Index 33.84 kg/m2?Mckeon PCT, Zari ??01/04 06:33 Scale Type Bed scale?Mckeon PCT, Zari ??01/04 06:33 ? Vital Signs (24 hrs) Last Charted?? Minimum?? Maximum?? Temp?? L??36.2?? 01/04/2023 19:20?? L??35?? 01/04/2023 04:24 ?? 37?? 01/04/2023 00:07?? Heart Rate Monitored?? 76?? 01/04/2023 08:39?? L??55?? 01/04/2023 00:22 ?? H??113?? 01/03/2023 23:41?? Resp Rate?? 18?? 01/04/2023 19:20?? C??9?? 01/04/2023 08:25 ?? C??28?? 01/04/2023 00:07?? SBP?? 117?? 01/04/2023 19:20?? 103?? 01/04/2023 04:01 ?? H??147?? 01/04/2023 08:25?? DBP?? 72?? 01/04/2023 19:20?? 61?? 01/04/2023 08:27 ?? C??101?? 01/04/2023 08:19?? MAP?? 87?? 01/04/2023 19:20?? 80?? 01/04/2023 06:24 ?? 115?? 01/04/2023 08:21?? SpO2?? L??92?? 01/04/2023 19:20?? L??90?? 01/04/2023 03:23 ?? 100?? 01/04/2023 00:22?? O2 Therapy?? Room air? I&O 24 Hour Total? 01/02 16:59 01/04 07:00 01/03 07:00 01/02 07:00 01/01 07:00 ?? 01/04 19:36 01/04 19:36 01/04 06:59 15 06:59 01/02 06:59 Intake ? 2419.8 ?960 ? 1045 ?414.9 ?0 Output ? 4110 ?900 ? 1950 ? 1260 ?0 Net Total ?-1690.2 ? 60 ? -905 ? -845.1 ?0 ? Precautions No Precautions documented.? Mental Status Exam ? Basic ADLs ? Mobility & Ambulation Level PT Bed Mobility Bed Mobility Roll Left: Does not occur (01/04/23) Bed Mobility Roll Right: Rehab Complete independence (01/04/23) Bed Mobility Supine to Sit: Rehab Complete independence (01/04/23) Bed Mobility Sit to Supine: Rehab Complete independence (01/04/23) Bed Mobility Scooting: Rehab Complete independence (01/04/23) PT Transfer Mobility Transfer Sit to Stand Rehab: Close supervision (01/04/23) Transfer Stand to Sit Rehab: Close supervision (01/04/23) Transfer Bed to and From Chair Rehab: Does not occur (01/04/23) Transfer Toilet Rehab: Does not occur (01/04/23) PT Ambulation Ambulation Level Rehab: Close supervision (01/04/23) Ambulation Distance: 1000 ft (01/04/23) Ambulation Device Utilized: None (01/04/23) ? Stroke Assessments [place] Coma Scale Eye Opening Response [place]: Spontaneously (01/04/23 08:00:00) Best Verbal Response [place]: Oriented and converses (01/04/23 08:00:00) Best Motor Response [place]: Obeys commands (01/04/23 08:00:00) [place] Coma Score: 15 (01/04/23 08:00:00) ? Physical Exam General: Alert, in??mild intermittent ??acute cardiopulmonary distress. F/D F.N Mental Status: Oriented to person, [...] range of motion _ Inpatient Medications Medications (23) Active SCHEDULED: (16) ascorbic acid 500 mg Tab (Vitamin C) ??500 mg 1 Tabs, Oral, BID aspirin 81 mg Chew Tab (aspirin) ??81 mg 1 Tabs, Chewed, Daily atorvastatin 40 mg Tab (atorvastatin) ??40 mg 1 Tabs, Oral, qHS carvedilol 3.125 mg Tab (carvedilol) ??6.25 mg 2 Tabs, Oral, BID With Meals clopidogrel 75 mg Tab (Plavix) ??75 mg 1 Tabs, Oral, Daily cyanocobalamin 1000 mcg/mL INJ SOLN (cyanocobalamin) ??1,000 mcg 1 mL, IntraMuscular, qMonday cyclobenzaprine 10 mg Tab (cyclobenzaprine) ??10 mg 1 Tabs, Oral, qHS docusate sodium 100 mg Cap (Colace) ??100 mg 1 Caps, Oral, BID enoxaparin 100 mg/1 mL SubQ syringe (Lovenox) ??100 mg 1 mL, SubCutaneous, q12H famotidine 20 mg Tab (famotidine) ??20 mg 1 Tabs, Oral, BID finasteride 5 mg Tab (Proscar) ??5 mg 1 Tabs, Oral, Daily FLUoxetine 20 mg Cap (PROzac) ??20 mg 1 Caps, Oral, Daily furosemide 100 mg/10 mL vial (furosemide) ??60 mg 6 mL, IV Push, BID levothyroxine 25 mcg (0.025 mg) Tab (Synthroid) ??25 mcg 1 Tabs, Oral, Daily loratadine 10 mg Tab (loratadine) ??10 mg 1 Tabs, Oral, Daily tamsulosin 0.4 mg SA Cap (Flomax) ??0.4 mg 1 Caps, Oral, BID CONTINUOUS: (1) diltiazem/0.7%NS 125 mg [5 mg/hr] + Premix 125 mL (dilTIAZem 125 mg [5 mg/hr] + Premix 125 mL) ??125 mL, IV, 5 mL/hr PRN: (6) acetaminophen 325 mg Tab (Tylenol) ??650 mg 2 Tabs, Oral, q4H diphenhydrAMINE 25 mg Cap (Benadryl) ??50 mg 2 Caps, Oral, qHS labetalol 20 mg/4 mL inj (labetalol) ??10 mg 2 mL, IV Push, q1H Interval levalbuterol 0.63 mg/3 mL Inh Janet (levalbuterol) ??0.63 mg 3 mL, Inhalation, q8H ondansetron 4 mg/2 mL vial (Zofran) ??4 mg 2 mL, IV Push, q8H senna 8.6 mg Tab senna gen (senna) ??17.2 mg 2 Tabs, Oral, Daily ? IV Titrations (Last 24 hrs) Most Recent Infusions (Max of 3)? 01/03 23:53 ? dilTIAZem 125 mg [5 mg/hr] + Premix 125 mL 10 mg/hr ? 72 hour Antibiotic History No qualifying data available... ? Durable Medical Equipment ? Results Recent Labs Blood Gases pH Arterial 7.440 (Normal)?? 01/04/2023 08:04 Art pCO2 45.8 mmHg (High)?? 01/04/2023 08:04 Art pO2 69.6 mmHg (Low)?? 01/04/2023 08:04 Art TempC,pH 7.440 (N/A)?? 01/04/2023 08:04 Art TempC,PCO2 45.8 mmHg (N/A)?? 01/04/2023 08:04 Art TempC,PO2 69.6 mmHg (N/A)?? 01/04/2023 08:04 Art HCO3 29.8 mmol/L (High)?? 01/04/2023 08:04 Art Base Excess 6.0 mmol/L (High)?? 01/04/2023 08:04 Art sO2 94 % (Normal)?? 01/04/2023 08:04 Art tHB 12.7 gm/dL (Low)?? 01/04/2023 08:04 Art O2 Hb 92 % (Low)?? 01/04/2023 08:04 Art Carboxyhemoglobin 1.5 % (Normal)?? 01/04/2023 08:04 Art Methemoglobin 0.3 % (Normal)?? 01/04/2023 08:04 POC Juan Antonio Test POS (N/A)?? 01/04/2023 08:04 POC Del Sys ROOM AIR (N/A)?? 01/04/2023 08:04 POC FIO2 21 % (N/A)?? 01/04/2023 08:04 POC Pt Temp 37.0 DegC (N/A)?? 01/04/2023 08:04 POC Site Radial Left (N/A)?? 01/04/2023 08:04 POC Sample Arterial (N/A)?? 01/04/2023 08:04 POC Vent Mode NO VENT (N/A)?? 01/04/2023 08:04 Art Hct 39.1 % (Low)?? 01/04/2023 08:04 Art Lactate 1.3 mmol/L (Normal)?? 01/04/2023 08:04 Notified By [id number] (N/A)?? 01/04/2023 08:04 Notified To and MELIZA CUETO RN (N/A)?? 01/04/2023 08:04 Notified Note ROOM AIR ABG (N/A)?? 01/04/2023 08:04 Vending Machine Assembler ID Renae (N/A)?? 01/04/2023 08:04 ?? Cardiac BNP 249.0 pg/mL (High)?? 01/03/2023 04:30 ?? General Chemistry Glucose Level 152 mg/dL (High)?? 01/03/2023 04:30 POC Glucose 160 mg/dL (High)?? 01/04/2023 16:32 Arterial Glucose 156 mg/dL (High)?? 01/04/2023 08:04 Sodium 137 mmol/L (Normal)?? 01/03/2023 04:30 Art Na 139 mmol/L (Normal)?? 01/04/2023 08:04 Potassium 3.5 mmol/L (Normal)?? 01/03/2023 04:30 Art K 3.2 mmol/L (Low)?? 01/04/2023 08:04 Chloride 103 mmol/L (Normal)?? 01/03/2023 04:30 CO2 30 mmol/L (Normal)?? 01/03/2023 04:30 Anion Gap 4 mmol/L (Normal)?? 01/03/2023 04:30 BUN 24 mg/dL (High)?? 01/03/2023 04:30 Creatinine 1.1 mg/dL (Normal)?? 01/03/2023 04:30 BUN/Creat Ratio 21.82 Ratio (Normal)?? 01/03/2023 04:30 Calcium 8.9 mg/dL (Normal)?? 01/03/2023 04:30 Art iCa 1.3 mmol/L (High)?? 01/04/2023 08:04 Mg Lvl 2.0 mg/dL (Normal)?? 01/03/2023 04:30 Estimated Creatinine Clearance 49.94 mL/min ()?? 01/03/2023 04:56 eGFR Cr 69 mL/min/1.73m2 (N/A)?? 01/03/2023 04:30 eGFR Pediatric Not Reported mL/min/1.73m2 (N/A)?? 01/03/2023 04:30 ?? Other Coagulation DDimer ULT 406 ng/mL FEU (Normal)?? 01/03/2023 15:13 ? Abnormal Labs ?? Blood Gases ??Art Base Excess ??6.0 mmol/L (High) ??01/04/2023 08:04 ??Art HCO3 ??29.8 mmol/L (High) ??01/04/2023 08:04 ??Art Hct ??39.1 % (Low) ??01/04/2023 08:04 ??Art O2 Hb ??92 % (Low) ??01/04/2023 08:04 ??Art pCO2 ??45.8 mmHg (High) ??01/04/2023 08:04 ??Art pO2 ??69.6 mmHg (Low) ??01/04/2023 08:04 ??Art tHB ??12.7 gm/dL (Low) ??01/04/2023 08:04 ? General Chemistry ??Art K ??3.2 mmol/L (Low) ??01/04/2023 08:04 ??Art iCa ??1.3 mmol/L (High) ??01/04/2023 08:04 ??Arterial Glucose ??156 mg/dL (High) ??01/04/2023 08:04 ??POC Glucose ??160 mg/dL (High) ??01/04/2023 16:32 ? Note: Critical results are displayed in red. ? CBC, BMP, Coagulation Trend (last 4 resulted) WBC 7.50 ?? 01/02/2023 ??14:50 ? Hgb 13.40 ??L?? 01/02/2023 ??14:50 ? Hct 39.30 ??L?? 01/02/2023 ??14:50 ? Baso # Auto 0.0 ?? 01/02/2023 ??14:50 ? Baso % Auto 0.5 ?? 01/02/2023 ??14:50 ? Eos # Auto 0.2 ?? 01/02/2023 ??14:50 ? Eos % Auto 2.5 ?? 01/02/2023 ??14:50 ? Lymph # Auto 1.9 ?? 01/02/2023 ??14:50 ? Lymph % Auto 25.9 ?? 01/02/2023 ??14:50 ? [place] # Auto 0.7 ?? 01/02/2023 ??14:50 ? [place] % Auto 9.8 ?? 01/02/2023 ??14:50 ? Neut # Auto 4.6 ?? 01/02/2023 ??14:50 ? Neut % Auto 61.3 ?? 01/02/2023 ??14:50 ? Plt 198 ?? 01/02/2023 ??14:50 ? Glucose Level 152 ??H?? 01/03/2023 ??04:30 125 ??H?? 01/02/2023 ??14:50 ? Sodium 137 ?? 01/03/2023 ??04:30 143 ?? 01/02/2023 ??14:50 ? Potassium 3.5 ?? 01/03/2023 ??04:30 3.8 ?? 01/02/2023 ??14:50 ? Chloride 103 ?? 01/03/2023 ??04:30 105 ?? 01/02/2023 ??14:50 ? CO2 30 ?? 01/03/2023 ??04:30 31.2 ??H?? 01/02/2023 ??14:50 ? BUN 24 ??H?? 01/03/2023 ??04:30 22 ?? 01/02/2023 ??14:50 ? Creatinine 1.1 ?? 01/03/2023 ??04:30 0.97 ?? 01/02/2023 ??14:50 ? BUN/Creat Ratio 21.82 ?? 01/03/2023 ??04:30 22.68 ??H?? 01/02/2023 ??14:50 ? Mg Lvl 2.0 ?? 01/03/2023 ??04:30 1.9 ?? 01/02/2023 ??14:50 ? Calcium 8.9 ?? 01/03/2023 ??04:30 8.7 ?? 01/02/2023 ??14:50 ? Blood Glucose Trend POC Glucose:??160 mg/dL??High (01/04/23 16:32:00) POC Glucose:??210 mg/dL??High (01/04/23 11:20:00) POC Glucose:??200 mg/dL??High (01/04/23 06:14:00) POC Glucose:??315 mg/dL??High (01/03/23 20:28:00) ? Microbiology ?? Respiratory Panel PCR?? Completed?? Source: Nasopharyngeal Body Site: ?? Collected Dt/Tm: 01/02/2023 15:42 Last Updated Dt/Tm: 01/02/2023 16:53 ? Cardiology Labs BNP:??249 pg/mL??High (01/03/23 04:30:00) BNP:??407 pg/mL??High (01/02/23 14:50:00) Troponin TNIH: 18.36 ng/L (01/02/23 15:48:00) Troponin TNIH: 17.99 ng/L (01/02/23 14:50:00) ?? Blood Gases (Last Within 24hrs) pH Arterial: 7.44 (08:04) Art pO2:??69.6 mmHg??Low (08:04) Art pCO2:??45.8 mmHg??High (08:04) Art HCO3:??29.8 mmol/L??High (08:04) Art sO2: 94 % (08:04) ? Assessment/Plan Diagnoses Acute on chronic diastolic heart failure secondary to hypertrophic cardiomyopathy ??(I50.33) Adult BMI 34.0-34.9 kg/sq m ??(Z68.34) Atrial fibrillation with RVR ??(I48.91) BPH (benign prostatic hyperplasia) ??(N40.0) COPD mixed type ??(J44.9) Chronic hypoxemic respiratory failure ??(J96.11) Dyspnea on exertion ??(R06.09) Hypothyroid ??(E03.9) Non-insulin treated type 2 diabetes mellitus ??(E11.9) ?? Assessment:?? Diagnosis Paroxysmal Atrial Fibrillation RVR POA CHADS- Vasc Score of 5 Initial Episode [facility]??December 17 2022 HTN COPD ??Hx Chronic Hypoxemic Resp Failure HLD Non Insulin Treated DM 2 Hypothyroidism Obesity BPH?? Depression ?? Plan : Inpatient Admit Telemetry Monitoring ?? IV Cardizem infusion Taper as tolerated B Blockers TTE with Doppler ?? ASA. STatin. Check CT Brain Anticoagulate if CT Head negative Ipatropium bromide??inhalation prn GI prophylaxis Prophylaxis DVT Supportive Rx See Full Med Rec Fluid and Salt Restriction ?? ascorbic acid 500 mg Tab (Vitamin C) ??500 mg 1 Tabs, Oral, BID aspirin 81 mg Chew Tab (aspirin) ??81 mg 1 Tabs, Chewed, Daily atorvastatin 40 mg Tab (atorvastatin) ??40 mg 1 Tabs, Oral, qHS carvedilol 3.125 mg Tab (carvedilol) ??6.25 mg 2 Tabs, Oral, BID With Meals clopidogrel 75 mg Tab (Plavix) ??75 mg 1 Tabs, Oral, Daily cyanocobalamin 1000 mcg/mL INJ SOLN (cyanocobalamin) ??1,000 mcg 1 mL, IntraMuscular, qMonday cyclobenzaprine 10 mg Tab (cyclobenzaprine) ??10 mg 1 Tabs, Oral, qHS docusate sodium 100 mg Cap (Colace) ??100 mg 1 Caps, Oral, BID enoxaparin 100 mg/1 mL SubQ syringe (Lovenox) ??100 mg 1 mL, SubCutaneous, q12H famotidine 20 mg Tab (famotidine) ??20 mg 1 Tabs, Oral, BID finasteride 5 mg Tab (Proscar) ??5 mg 1 Tabs, Oral, Daily FLUoxetine 20 mg Cap (PROzac) ??20 mg 1 Caps, Oral, Daily furosemide 100 mg/10 mL vial (furosemide) ??60 mg 6 mL, IV Push, BID levothyroxine 25 mcg (0.025 mg) Tab (Synthroid) ??25 mcg 1 Tabs, Oral, Daily loratadine 10 mg Tab (loratadine) ??10 mg 1 Tabs, Oral, Daily tamsulosin 0.4 mg SA Cap (Flomax) ??0.4 mg 1 Caps, Oral, BID CONTINUOUS: (1) diltiazem/0.7%NS 125 mg [5 mg/hr] + Premix 125 mL (dilTIAZem 125 mg [5 mg/hr] + Premix 125 mL) ??125 mL, IV, 5 mL/hr ?? Condition : serious Prognosis??:??guarded ?? Further as per clinical evolution Dispo Home when stable ?? Further as per clinical evolution ?Order Date/Time ??Order Action ??Order Name ??Order Detail ??01/04/2023 16:35 ??Order ??POC Glu ??Blood, Collected Y/N, RT, RT - Routine, 01/04/23 16:32:36 CLEAT BLANKER ??01/04/2023 11:35 ??Order ??POC Glu ??Blood, Collected Y/N, RT, RT - Routine, 01/04/23 11:20:38 CLEAT BLANKER ??01/04/2023 08:05 ??Order ??ABG+Lytes+COox+Lactate ??Arterial Blood, Collected Y/N, RT, RT - Routine, 01/04/23 8:04:52 CLEAT BLANKER ??01/04/2023 06:15 ??Order ??POC Glu ??Blood, Collected Y/N, RT, RT - Routine, 01/04/23 6:14:45 CLEAT BLANKER ? Electronically Signed By: Margi Plummer MD On: 01.04.2023 20:12 CLEAT BLANKER * Josh Yanes MD: MODIFY, PERFORM, MODIFY, MODIFY Event Display: Progress Note-Physician Authored Date: Subjective Patient stated that??his shortness of breath has improved.?? He did not sleep well last night because he was very anxious. ?? Brief History 77-year-old male with past medical history??of CHF, diabetes, hypertension, COPD on home O2??went to??Dr. Yanes's office complaining of significant shortness of breath and was found to be in A-fib??with RVR which is a new diagnosis for him.?? Since the patient was in mild to moderate respiratory distress he was referred to the emergency department at [facility] for further work-up.?? He was also complaining of retrosternal chest pain which was severe that time 10 out of 10 and retrosternal.?it was worsened by ambulation.?? At that time the patient was tachycardic and in A-fib. ?? Upon arrival to the emergency department his heart rate was better controlled?? and his symptoms resolved.?? He denied any chest pain or significant shortness of breath in ED. ECG showing atrial fibrillation with RVR at [id number].??Right bundle branch block. ??Possible old inferior wall DC.?? PVCs. Troponins x2 negative , BNP 407., Chest x-ray shows pulmonary edema and/or bilateral pneumonic infiltrates/atelectasis more evident on the right persist. Chief Complaint/Reason for Consultation Chief Complaint: worsening shortness of breath and fast heartrate ?? Allergies Allergies ?(Active and Proposed Allergies Only) codeine? (Severity: Unknown severity, Onset: Unknown) ?Reactions: hives penicillin? (Severity: Unknown severity, Onset: Unknown) ?Reactions: hives ? Past Medical History Active Problems(5) CHF (congestive heart failure) COPD (chronic obstructive pulmonary disease) Diabetes HTN (hypertension) Hyperlipemia ? Past Surgical History No surgery history documented. ? Social History Alcohol Details:??Current, 1-2 times per year Substance Abuse Details:??Denies Tobacco Details:??Denies ? Family History No Family History documented. ? Spiritual History Comfort From Spiritual Practice: No [place]/Denomination: Church ?? Objective ?? Measurements (most recent)?? Height 167.64 cm?Donna Espinosa RN ??01/02 14:29 Weight 95.90 kg?Dangelo Rincon RN ??01/03 06:49 Body Mass Index 34.12 kg/m2?Dangelo Rincon RN ??01/03 06:49 Scale Type Bed scale?Dangelo Rincon RN ??01/03 06:49 ? Vital Signs (24 hrs) Last Charted?? Minimum?? Maximum?? Temp?? 36.6?? 01/03/2023 11:00?? 36.8?? 01/02/2023 19:56 ?? 37?? 01/02/2023 23:43?? Heart Rate Monitored?? 81?? 01/03/2023 11:00?? 81?? 01/02/2023 21:00 ?? H??124?? 01/02/2023 17:07?? Resp Rate?? 18?? 01/03/2023 07:08?? 18?? 01/02/2023 23:43 ?? 20?? 01/02/2023 19:56?? SBP?? 120?? 01/03/2023 11:00?? 97?? 01/03/2023 07:08 ?? 120?? 01/03/2023 11:00?? DBP?? 71?? 01/03/2023 11:00?? L??55?? 01/02/2023 19:56 ?? H??86?? 01/02/2023 20:00?? MAP?? 77?? 01/03/2023 07:08?? 73?? 01/02/2023 19:56 ?? 93?? 01/02/2023 20:00?? SpO2?? 98?? 01/03/2023 11:00?? 95?? 01/03/2023 04:28 ?? 99?? 01/02/2023 15:01?? O2 Flow Rate?? on 3 ? l/min?? on 3 ? l/min? O2 Therapy?? Nasal cannula?? Nasal cannula? Assisted Ventilation Settings (Last Within 24hrs)?? FIO2: 3 % (23:00) ? I&O 24 Hour Total? 01/02 16:59 01/03 07:00 01/02 07:00 01/01 07:00 12/31 07:00 ?? 01/03 14:47 01/03 14:47 01/03 06:59 01/02 06:59 01/01 06:59 Intake ?654.9 ?240 ?414.9 ?0 ?0 Output ? 1910 ?650 ? 1260 ?0 ?0 Net Total ?-1255.2 ? -410 ? -845.1 ?0 ?0 ? Physical Exam General: Awake, Alert, No acute distress. Appearance: Well nourished. Behavior: Appropriate. Eye: Normal conjunctiva. Anicteric sclerae Head: Normocephalic.?? Nontraumatic Neck: Supple, Non-tender, No JVD,??trachea midline Respiratory: Respiration??even and unlabored. on O2 3L??NC Cardiovascular: Irregular rhythm Gastrointestinal: Non-tender, Non distended. Musculoskeletal: No deformity. Extremities: Weak radial pulses bilaterally,??mild pedal edema. Skin: Warm, and Dry Neurologic: Speech clear and coherent. Alert, Oriented. Psychiatric: Cooperative, Appropriate mood & affect. _ Home Medications ascorbic acid (Vitamin C 500 mg oral capsule)?500?Milligram?1?Capsules?By Mouth?2Times a Day aspirin (aspirin 81 mg oral tablet, chewable)?81?Milligram?1?Tabs?Chewed?Daily atorvastatin (atorvastatin 40 mg oral tablet)?40?Milligram?1?Tabs?By Mouth?at Bedtime carvedilol (carvedilol 6.25 mg oral tablet)?6.25?Milligram?1?Tabs?By Mouth?2 Times a Day clopidogrel (Plavix 75 mg oral tablet)?75?Milligram?1?Tabs?By Mouth?Daily cyanocobalamin (cyanocobalamin 1000 mcg/mL injectable solution)?1,000?Microgram?Intramuscular?Every Sunday cyclobenzaprine (cyclobenzaprine 10 mg oral tablet)?10?Milligram?1?Tabs?By Mouth?at Bedtime finasteride (Proscar 5 mg oral tablet)?5?Milligram?1?Tabs?By Mouth?Daily FLUoxetine (PROzac 20 mg oral capsule)?20?Milligram?1?Capsules?By Mouth?Daily furosemide (Lasix 80 mg oral tablet)?80?Milligram?1?Tabs?By Mouth?Daily levothyroxine (Synthroid 25 mcg (0.025 mg) oral tablet)?25?Microgram?1?Tabs?By Mouth?Daily loratadine (loratadine 10 mg oral tablet)?10?Milligram?1?Tabs?By Mouth?Daily metFORMIN (metFORMIN 500 mg oral tablet)?500?Milligram?1?Tabs?By Mouth?Daily?as needed?Blood Glucose (please specify)?for blood sugar over 200 multivitamin with minerals (Centrum Silver oral tablet)?1?Tabs?By Mouth?2 Times a Day pantoprazole (Protonix 20 mg oral enteric coated tablet)?20?Milligram?1?Tabs?By Mouth?Daily saw palmetto (saw palmetto 450 mg oral capsule)?450?Milligram?1?Each?By Mouth?2 Times a Day tamsulosin (Flomax 0.4 mg oral capsule)?0.4?Milligram?1?Capsules?By Mouth?2 Timesa Day ? Inpatient Medications Medications (23) Active SCHEDULED: (16) ascorbic acid 500 mg Tab (Vitamin C) ??500 mg 1 Tabs, Oral, BID aspirin 81 mg Chew Tab (aspirin) ??81 mg 1 Tabs, Chewed, Daily atorvastatin 40 mg Tab (atorvastatin) ??40 mg 1 Tabs, Oral, qHS carvedilol 3.125 mg Tab (carvedilol) ??6.25 mg 2 Tabs, Oral, BID With Meals clopidogrel 75 mg Tab (Plavix) ??75 mg 1 Tabs, Oral, Daily cyanocobalamin 1000 mcg/mL INJ SOLN (cyanocobalamin) ??1,000 mcg 1 mL, IntraMuscular, qMonday cyclobenzaprine 10 mg Tab (cyclobenzaprine) ??10 mg 1 Tabs, Oral, qHS docusate sodium 100 mg Cap (Colace) ??100 mg 1 Caps, Oral, BID enoxaparin 100 mg/1 mL SubQ syringe (Lovenox) ??100 mg 1 mL, SubCutaneous, q12H famotidine 20 mg Tab (famotidine) ??20 mg 1 Tabs, Oral, BID finasteride 5 mg Tab (Proscar) ??5 mg 1 Tabs, Oral, Daily FLUoxetine 20 mg Cap (PROzac) ??20 mg 1 Caps, Oral, Daily furosemide 100 mg/10 mL vial (furosemide) ??60 mg 6 mL, IV Push, BID levothyroxine 25 mcg (0.025 mg) Tab (Synthroid) ??25 mcg 1 Tabs, Oral, Daily loratadine 10 mg Tab (loratadine) ??10 mg 1 Tabs, Oral, Daily tamsulosin 0.4 mg SA Cap (Flomax) ??0.4 mg 1 Caps, Oral, BID CONTINUOUS: (1) diltiazem/0.7%NS 125 mg [5 mg/hr] + Premix 125 mL (dilTIAZem 125 mg [5 mg/hr] + Premix 125 mL) ??125 mL, IV, 5 mL/hr PRN: (6) acetaminophen 325 mg Tab (Tylenol) ??650 mg 2 Tabs, Oral, q4H albuterol 1.25mg/3 mL inh janet (albuterol) ??1.25 mg 3 mL, NEB, q8H diphenhydrAMINE 25 mg Cap (Benadryl) ??50 mg 2 Caps, Oral, qHS labetalol 20 mg/4 mL inj (labetalol) ??10 mg 2 mL, IV Push, q1H Interval ondansetron 4 mg/2 mL vial (Zofran) ??4 mg 2 mL, IV Push, q8H senna 8.6 mg Tab senna gen (senna) ??17.2 mg 2 Tabs, Oral, Daily ? IV Titrations (Last 24 hrs) Most Recent Infusions (Max of 3)? 01/03 04:00 01/03 02:59 01/02 19:00 dilTIAZem 125 mg [5 mg/hr] + Premix 125 mL 5 mg/hr 10 mg/hr 10 mg/hr ? 72 hour Antibiotic History No qualifying data available... ?? Results Recent Labs Blood Gases pH Arterial 7.429 (Normal)?? 01/02/2023 20:34 Art pCO2 48.4 mmHg (High)?? 01/02/2023 20:34 Art pO2 108.0 mmHg (High)?? 01/02/2023 20:34 Art TempC,pH 7.429 (N/A)?? 01/02/2023 20:34 Art TempC,PCO2 48.4 mmHg (N/A)?? 01/02/2023 20:34 Art TempC,PO2 108.0 mmHg (N/A)?? 01/02/2023 20:34 Art HCO3 30.4 mmol/L (High)?? 01/02/2023 20:34 Art Base Excess 6.5 mmol/L (High)?? 01/02/2023 20:34 Art sO2 99 % (Normal)?? 01/02/2023 20:34 Art tHB 12.6 gm/dL (Low)?? 01/02/2023 20:34 Art O2 Hb 97 % (Normal)?? 01/02/2023 20:34 Art Carboxyhemoglobin 1.5 % (Normal)?? 01/02/2023 20:34 Art Methemoglobin 0.6 % (Normal)?? 01/02/2023 20:34 POC Juan Antonio Test POS (N/A)?? 01/02/2023 20:34 POC Del Sys ROOM AIR (N/A)?? 01/02/2023 20:34 POC FIO2 21 % (N/A)?? 01/02/2023 20:34 POC Pt Temp 37.0 DegC (N/A)?? 01/02/2023 20:34 POC Site Radial Left (N/A)?? 01/02/2023 20:34 POC Sample Arterial (N/A)?? 01/02/2023 20:34 POC Vent Mode NO VENT (N/A)?? 01/02/2023 20:34 Art Hct 38.6 % (Low)?? 01/02/2023 20:34 Art Lactate 1.2 mmol/L (Normal)?? 01/02/2023 20:34 Vending Machine Assembler ID [id number] (N/A)?? 01/02/2023 20:34 ?? Cardiac BNP 407.0 pg/mL (High)?? 01/02/2023 14:50 Troponin TNIH 18.36 ng/L (Normal)?? 01/02/2023 15:48 ?? General Chemistry Glucose Level 152 mg/dL (High)?? 01/03/2023 04:30 Arterial Glucose 134 mg/dL (High)?? 01/02/2023 20:34 Sodium 137 mmol/L (Normal)?? 01/03/2023 04:30 Art Na 142 mmol/L (Normal)?? 01/02/2023 20:34 Potassium 3.5 mmol/L (Normal)?? 01/03/2023 04:30 Art K 3.6 mmol/L (Normal)?? 01/02/2023 20:34 Chloride 103 mmol/L (Normal)?? 01/03/2023 04:30 CO2 30 mmol/L (Normal)?? 01/03/2023 04:30 Anion Gap 4 mmol/L (Normal)?? 01/03/2023 04:30 BUN 24 mg/dL (High)?? 01/03/2023 04:30 Creatinine 1.1 mg/dL (Normal)?? 01/03/2023 04:30 BUN/Creat Ratio 21.82 Ratio (Normal)?? 01/03/2023 04:30 Calcium 8.9 mg/dL (Normal)?? 01/03/2023 04:30 Art iCa 1.1 mmol/L (Normal)?? 01/02/2023 20:34 Mg Lvl 2.0 mg/dL (Normal)?? 01/03/2023 04:30 Estimated Creatinine Clearance 49.94 mL/min ()?? 01/03/2023 04:56 eGFR Cr 69 mL/min/1.73m2 (N/A)?? 01/03/2023 04:30 eGFR Pediatric Not Reported mL/min/1.73m2 (N/A)?? 01/03/2023 04:30 ?? General Hematology WBC 7.50 x10e3/mcL (Normal)?? 01/02/2023 14:50 RBC 4.08 x10e6/mcL (Low)?? 01/02/2023 14:50 Hgb 13.40 gm/dL (Low)?? 01/02/2023 14:50 Hct 39.30 % (Low)?? 01/02/2023 14:50 MCV 96.5 Femtoliters (Normal)?? 01/02/2023 14:50 MCH 32.90 pg (Normal)?? 01/02/2023 14:50 MCHC 34.10 gm/dL (Normal)?? 01/02/2023 14:50 RDW-CV 14.30 % (Normal)?? 01/02/2023 14:50 RDW-SD 49.40 Femtoliters (High)?? 01/02/2023 14:50 Plt 198 x10e3/mcL (Normal)?? 01/02/2023 14:50 MPV 8.40 Femtoliters (Normal)?? 01/02/2023 14:50 NRBC % 0 % (Normal)?? 01/02/2023 14:50 Neut % Auto 61.3 % (Normal)?? 01/02/2023 14:50 Lymph % Auto 25.9 % (Normal)?? 01/02/2023 14:50 [place] % Auto 9.8 % (Normal)?? 01/02/2023 14:50 Eos % Auto 2.5 % (Normal)?? 01/02/2023 14:50 Baso % Auto 0.5 % (Normal)?? 01/02/2023 14:50 Neut # Auto 4.6 x10e3/mcL (Normal)?? 01/02/2023 14:50 Lymph # Auto 1.9 x10e3/mcL (Normal)?? 01/02/2023 14:50 [place] # Auto 0.7 x10e3/mcL (Normal)?? 01/02/2023 14:50 Eos # Auto 0.2 x10e3/mcL (Normal)?? 01/02/2023 14:50 Baso # Auto 0.0 x10e3/mcL (Normal)?? 01/02/2023 14:50 ?? Infectious Disease Influenza A Not Detected (Normal)?? 01/02/2023 15:42 Influenza B Not Detected (Normal)?? 01/02/2023 15:42 RSV Not Detected (Normal)?? 01/02/2023 15:42 ?? Other Microbiology Adenovirus Not Detected (Normal)?? 01/02/2023 15:42 Coronavirus 229E Not Detected (Normal)?? 01/02/2023 15:42 Coronavirus HKU1 Not Detected (Normal)?? 01/02/2023 15:42 Coronavirus NL63 Not Detected (Normal)?? 01/02/2023 15:42 Coronavirus OC43 Not Detected (Normal)?? 01/02/2023 15:42 Hum Metapneumo Not Detected (Normal)?? 01/02/2023 15:42 Hum Rhino/Entero Not Detected (Normal)?? 01/02/2023 15:42 Parainflu Vir 1 Not Detected (Normal)?? 01/02/2023 15:42 Parainflu Vir 2 Not Detected (Normal)?? 01/02/2023 15:42 Parainflu Vir 3 Not Detected (Normal)?? 01/02/2023 15:42 Parainflu Vir 4 Not Detected (Normal)?? 01/02/2023 15:42 Bordetella pertuss Not Detected (Normal)?? 01/02/2023 15:42 Chlam pneumoniae Not Detected (Normal)?? 01/02/2023 15:42 Mycoplas pneumoniae Not Detected (Normal)?? 01/02/2023 15:42 Bordetella parapertussis Not Detected (Normal)?? 01/02/2023 15:42 ?? SARS-CoV-2/Covid-19 Reason for Testing Diagnostic (Normal)?? 01/02/2023 15:42 SARS-CoV-2 Not Detected (Normal)?? 01/02/2023 15:42 Suspect COVID? Yes (Normal)?? 01/02/2023 15:42 Symptomatic as defined by CDC? Yes (Normal)?? 01/02/2023 15:42 Hospitalized due to COVID? None (N/A)?? 01/02/2023 15:42 In ICU? None (N/A)?? 01/02/2023 15:42 status? Not (Normal)?? 01/02/2023 15:42 Employed in healthcare? None (N/A)?? 01/02/2023 15:42 Group care resident? No (Normal)?? 01/02/2023 15:42 ?? Thyroid T4 Free 0.86 ng/dL (Low)?? 01/02/2023 14:50 TSH 4.543 mc Intl units/mL (Normal)?? 01/02/2023 14:50 ? CBC, BMP, Coagulation Trend (last 4 resulted) WBC 7.50 ?? 01/02/2023 ??14:50 ? Hgb 13.40 ??L?? 01/02/2023 ??14:50 ? Hct 39.30 ??L?? 01/02/2023 ??14:50 ? Baso # Auto 0.0 ?? 01/02/2023 ??14:50 ? Baso % Auto 0.5 ?? 01/02/2023 ??14:50 ? Eos # Auto 0.2 ?? 01/02/2023 ??14:50 ? Eos % Auto 2.5 ?? 01/02/2023 ??14:50 ? Lymph # Auto 1.9 ?? 01/02/2023 ??14:50 ? Lymph % Auto 25.9 ?? 01/02/2023 ??14:50 ? [place] # Auto 0.7 ?? 01/02/2023 ??14:50 ? [place] % Auto 9.8 ?? 01/02/2023 ??14:50 ? Neut # Auto 4.6 ?? 01/02/2023 ??14:50 ? Neut % Auto 61.3 ?? 01/02/2023 ??14:50 ? Plt 198 ?? 01/02/2023 ??14:50 ? Glucose Level 152 ??H?? 01/03/2023 ??04:30 125 ??H?? 01/02/2023 ??14:50 ? Sodium 137 ?? 01/03/2023 ??04:30 143 ?? 01/02/2023 ??14:50 ? Potassium 3.5 ?? 01/03/2023 ??04:30 3.8 ?? 01/02/2023 ??14:50 ? Chloride 103 ?? 01/03/2023 ??04:30 105 ?? 01/02/2023 ??14:50 ? CO2 30 ?? 01/03/2023 ??04:30 31.2 ??H?? 01/02/2023 ??14:50 ? BUN 24 ??H?? 01/03/2023 ??04:30 22 ?? 01/02/2023 ??14:50 ? Creatinine 1.1 ?? 01/03/2023 ??04:30 0.97 ?? 01/02/2023 ??14:50 ? BUN/Creat Ratio 21.82 ?? 01/03/2023 ??04:30 22.68 ??H?? 01/02/2023 ??14:50 ? Mg Lvl 2.0 ?? 01/03/2023 ??04:30 1.9 ?? 01/02/2023 ??14:50 ? Calcium 8.9 ?? 01/03/2023 ??04:30 8.7 ?? 01/02/2023 ??14:50 ? Microbiology ?? Respiratory Panel PCR?? Completed?? Source: Nasopharyngeal Body Site: ?? Collected Dt/Tm: 01/02/2023 15:42 Last Updated Dt/Tm: 01/02/2023 16:53 ? Cardiology Labs BNP:??407 pg/mL??High (01/02/23 14:50:00) Troponin TNIH: 18.36 ng/L (01/02/23 15:48:00) Troponin TNIH: 17.99 ng/L (01/02/23 14:50:00) ?? Blood Gases (Last Within 24hrs) pH Arterial: 7.429 (20:34) Art pO2:??108 mmHg??High (20:34) Art pCO2:??48.4 mmHg??High (20:34) Art HCO3:??30.4 mmol/L??High (20:34) Art sO2: 99 % (20:34) ? Images ECG??on 01/02/23 ??atrial fibrillation with RVR at [id number].??Right bundle branch block. ??Possible old inferior wall DC.?? PVCs ? BILATERAL VENOUS DUPLEX ULTRASOUND OF THE LOWER EXTREMITIES 01/03/23 ?? Static ultrasound images with Doppler of the bilateral lower extremity venous system demonstrates no evidence of deep venous thrombosis. ??Normal augmentation and compression was demonstrated. ?? IMPRESSION: ?? NEGATIVE DEEP VENOUS THROMBOSIS STUDY. ? ONE VIEW FRONTAL CHEST RADIOGRAPH??01/02/23 ?? CLINICAL HISTORY: Palpitations ?? COMPARISON: 12/17/2022 frontal chest radiograph ?? FINDINGS: ? Radiopacities project over the chest, more evident on the right. The chest is clearof gross pleural fluid and pneumothorax. Heart size evaluation is limited. ?? IMPRESSION: ? Findings suggestive of pulmonary edema and/or bilateral pneumonic infiltrates/atelectasis more evident on the right persist. ? Echocardiogram on 12/01/19 Summary: 1. Left ventricular ejection fraction, by visual estimation, is 60 to 65%. 2. Normal global left ventricular systolic function. 3. Moderately increased left ventricular septal thickness. 4. Pseudonormal pattern of LV diastolic filling. 5. Severely dilated left atrium. 6. Trivial pericardial effusion, as described above. 7. Mild aortic regurgitation. 8. Mild aortic valve sclerosis is present, with no evidence of aortic valve stenosis. ? Assessment/Plan Diagnoses Acute on chronic diastolic heart failure secondary to hypertrophic cardiomyopathy ??(I50.33) Adult BMI 34.0-34.9 kg/sq m ??(Z68.34) BPH (benign prostatic hyperplasia) ??(N40.0) Chronic hypoxemic respiratory failure ??(J96.11) Dyspnea on exertion ??(R06.09) Hypothyroid ??(E03.9) Non-insulin treated type 2 diabetes mellitus ??(E11.9) ?Atrial fibrillation with RVR ??(I48.91) New diagnosis.?? RVR on presentation currently better controlled diltiazem drip. Continue rate control at this time??and??plan for possible TRINY and direct- current cardioversion??tomorrow??discussed with patient the risk benefits.?? The risk involves??discomfort??and a cervical perforation..?? Unknown onset of A-fib. Acute on chronic congestive heart failure with reduced ejection fraction: Echocardiogram on 12/01 19 Shows Left ventricular ejection fraction, by visual estimation, is 60 to 65%. Volume overloaded at this time. ??IV diuretics.?Furosemide 60 mg IV BID. Monitor fluid balance and adjust diuretics as needed. Strict I & O Daily weights Attempt to discontinue diltiazem due to acute heart failure and possible low ejection fraction. Monitor creatinine electrolytes. Optimize medical therapy as tolerated. ?? CAD:?? Stable. ??No evidence of ischemia this time. ??Negative troponins. ??EKG with no ischemic changes.?? Previous history of PCI. Continue Aspirin 81 mg daily Continue Plavix 75 mg daily Continue Carvedilol 6.25 BID Optimize medical therapy and risk factor modifications. ?? COPD mixed type ??(J44.9) On chronic home O2 due to hypoxemia. ??Currently stable.?? No respiratory distress at this time. We will get??case management also??to help to assist with??home oxygen concentrator. ?Type 2 diabetes mellitus?? (E11.9) keep??blood??glucose??between 120-180 mmHg, titrate as needed initiate hypoglycemia management protocol as needed Diabetic diet correction SS insulin, glucose checks, Goal of HbA1c < 7 ?? Hypertension: Monitor and adjust therapy as needed. ?? Hyperlipidemia: Atorvastatin 40 mg Qhs LDL goal < 100 and Non-HDL < 130 ?? Constipation:??We will start on docusate sodium??and senna ?Order Date/Time ??Order Action ??Order Name ??Order Detail ??01/03/2023 12:48 ??Order ??Consult to Case Management ??01/03/23 12:48:00 CLEAT BLANKER, Routine, Reason for Consult: Other Please Specify, IV: Yes, O2: Yes, No Isolation, home O2 2L ??01/03/2023 12:43 ??Order ??docusate sodium 100 mg Cap ??100 mg, 1 Caps, Oral, BID ??01/03/2023 12:43 ??Order ??senna 8.6 mg Tab senna gen ??17.2 mg, 2 Tabs, Oral, Daily, PRN: Constipation ? Electronically Signed By: Josh Yanes MD On: 01.03.2023 19:01 CLEAT BLANKER Procedure note * Josh Yanes MD: PERFORM Event Display: Procedure Note Authored Date: _ Procedure: Direct current cardioversion ?? Indication:?? Atrial fibrillation ?? Moderate sedation: Moderate sedation was provided under my direct supervision with sedation trainednurse using??50 mcg of IV fentanyl and 2 mg of IV versed. Procedure time??25 minutes. There were nocomplications. See hospital trained nurse sedation sheet I signed and dated pre and post procedure ?? Procedure description: The procedure was explained to the patient with risks and benefits includingrisk of stroke. The patient's compliance with anticoagulation with anticoagulation was confirmed. The pads applied in the anterior and posterior approach. With synchronized biphasic waveform at??200 J, one shock was successful in restoring sinus rhythm. The patient had no immediate post- procedure complications. The rhythm was maintained and 12-lead EKG was requested. ?? Impression: Successful direct current cardioversion with buddhism of sinus rhythm from atrial fibrillation with no immediate complication. Electronically Signed By: Josh Yanes MD On: 01.04.2023 22:39 CLEAT BLANKER History and physical note * Blessing Amato: PERFORM Event Display: History & Physical Authored Date: [id number] * Margi Plummer MD: PERFORM Event Display: History & Physical Authored Date: [id number] Chief Complaint/Reason for Consultation worsening shortness of breath and fast heartrate History of Present Illness Mr Albert Chang : 77/M with COPDon Home O2 , chronic hypoxemic resp failure. CHF. Non insulin Rxed DM2, HTN. HLD. Hypothyroidism. BPH. Depression , Hx Paroxysmal A Fib Rxed at [facility] overnight and DCed without Cardio involvement , was seen at DR Joaquín Collier today found to be in A Fib RVR with?? severe chest pain 08/28 , resp distress, weakness?? sent to ER [facility] for eval and Rx. ?? Received at [facility] ER comfortable on IV Cardizem infusion at 10mg/hr ,on O2 via NC ?? EKG : atrial fibrillation with??poor ??R wave progression.?? Possible old inferior wall DC.?? PVCs. Troponins negative x2.?? BNP 407. Chest x-ray suggestive of pulmonary edema ? Review of Systems ?? Constitutional: No weight loss, fever, chills, weakness or fatigue. HEENT: No visual loss, blurred vision, double vision or yellow sclera. No hearing loss, sneezing, congestion, runny nose or sore throat. Skin: No rash or itching. Cardiovascular: +chest pain, chest pressure or chest discomfort.??+ palpitations or pedal edema. Respiratory:??+ shortness of breath, cough or sputum production. [...] heat intolerance. No polyuria or polydipsia. Objective ?? Measurements (most recent)?? Height 167.64 cm?Donna Espinosa RN ??01/02 14:29 Weight 96.16 kg?Donna Espinosa RN ??01/02 14:29 Body Mass Index 34.22 kg/m2?Joenoelle RN, Donna G ??01/02 14:29 ? Vital Signs (24 hrs) Last Charted?? Minimum?? Maximum?? Temp?? 36.8?? 01/02/2023 19:56?? 36.6?? 01/02/2023 14:29 ?? 36.6?? 01/02/2023 14:29?? Heart Rate Monitored?? 81?? 01/02/2023 23:00?? 81?? 01/02/2023 21:00 ?? H??124?? 01/02/2023 17:07?? Resp Rate?? 20?? 01/02/2023 23:00?? 20?? 01/02/2023 19:56 ?? H??24?? 01/02/2023 14:29?? SBP?? 100?? 01/02/2023 23:00?? 98?? 01/02/2023 15:30 ?? 119?? 01/02/2023 14:29?? DBP?? 71?? 01/02/2023 23:00?? L??55?? 01/02/2023 19:56 ?? H??86?? 01/02/2023 20:00?? MAP?? 81?? 01/02/2023 23:00?? 73?? 01/02/2023 19:56 ?? 93?? 01/02/2023 20:00?? SpO2?? 98?? 01/02/2023 23:00?? 96?? 01/02/2023 21:00 ?? 99?? 01/02/2023 15:01?? O2 Flow Rate?? on 3 ? %?? on 3 ? %? O2 Therapy?? Nasal cannula?? Nasal cannula? Pain Scores (Last Within 24hrs) Numeric Pain Scale: 0 = No pain (23:00) ? I&O 24 Hour Total? 01/02 16:59 01/02 07:00 01/01 07:00 12/31 07:00 12/30 07:00 ?? 02/14 23:33 01/02 23:33 01/02 06:59 01/01 06:59 12/31 06:59 Intake ?0 ?0 ?0 ?0 ?0 Output ?800 ?800 ?0 ?0 ?0 Net Total ? -800 ? -800 ?0 ?0 ?0 ? Precautions COVID-19 ? Physical Exam Physical Exam General: Alert, in no acute cardiopulmonary distress. F/D F.N Mental Status: Oriented to person, [...] deformities. Normal range of motion. Assessment/Plan Diagnoses ?? Adult BMI 34.0-34.9 kg/sq m ??(Z68.34) Atrial fibrillation with RVR ??(I48.91) BPH (benign prostatic hyperplasia) ??(N40.0) COPD mixed type ??(J44.9) Chronic hypoxemic respiratory failure ??(J96.11) Dyspnea on exertion ??(R06.09) Hypothyroid ??(E03.9) Non-insulin treated type 2 diabetes mellitus ??(E11.9) ?? Assessment: ??Diagnosis Paroxysmal Atrial Fibrillation RVR POA CHADS- Vasc Score of 5 Initial Episode [facility]??December 17 2022 HTN COPD Chronic Respiratory Acidosis ??Hx Chronic Hypoxemic Resp Failure HLD Non Insulin Treated DM 2 Hypothyroidism Obesity BPH?? Depression ?? Plan : Inpatient Admit Telemetry Monitoring Complete serial CE Complete serial EKGs IV Cardizem infusion Taper as tolerated Strict I/ O Fluid restriction ??Carvedilol TTE with Doppler Follow Cardio Consult recommendations Pulmo Consult in am ASA.?? PLavix?? STatin. Check CT Brain ??LMWH 1mg/kg sq q12 H Ipatropium bromide??inhalation prn Finasteride/ Tamsulosin Furosemide ??Levothyroxine GI prophylaxis Prophylaxis DVT Supportive Rx See Full Med Rec Fluid and Salt Restriction ??CPAP at HS ?? Condition : Stable Prognosis??:??Fair ?? Further as per clinical evolution Dispo Home when stable ?? Further as per clinical evolution ?Order Date/Time ??Order Action ??Order Name ??Order Detail ??01/02/2023 23:26 ??Order ??Diet ??01/02/23 23:26:00 CLEAT BLANKER, Diabetic/Carb Consistent ??? Medium (75g) ??01/02/2023 23:24 ??Order ??Activity ??01/02/23 23:24:00 CLEAT BLANKER, Early and Progressive Mobilization, Routine, Stop date 01/02/23 23:24:00 CLEAT BLANKER ??01/02/2023 20:33 ??Order ??ABG+Lytes+COox+Lactate ??Arterial Blood, Collected Y/N, RT, RT - Routine, 01/02/23 20:34:26 CLEAT BLANKER ??01/02/2023 18:27 ??Cancel ??pantoprazole 20 mg Oral EC Tab ??20 mg, 1 Tabs, Oral, Daily ??01/02/2023 18:26 ??Modify ??carvedilol 3.125 mg Tab ??6.25 mg, 2 Tabs, Oral, BID With Meals ??01/02/2023 18:26 ??Modify ??cyanocobalamin 1000 mcg/mL INJ SOLN ??1,000 mcg, 1 mL, IntraMuscular, qMonday ??01/02/2023 18:26 ??Modify ??ascorbic acid 500 mg Tab ??500 mg, 1 Tabs, Oral, BID ??01/02/2023 18:26 ??Modify ??labetalol 20 mg/4 mL inj ??10 mg, 2 mL, IV Push, q1H Interval, PRN: Blood Pressure (please specify) ??01/02/2023 18:19 ??Order ??Consult to Provider ??01/02/23 18:19:00 CLEAT BLANKER, Routine, Specialty Consulted: Pulmonology, To notify: Ranjit MODI, Ashutosh Quiroga, Fellow, Instrument Repairer Not Notified, Reason for consult: Hx COPD was on Home O2 , now purchased himself , here with A Fib RVR, Special Instructions: Please ca... ??01/02/2023 18:19 ??Order ??Blood Gas Arterial with CoOximetry ??Routine, Once, 01/02/23 18:19:00 CLEAT BLANKER ??01/02/2023 18:18 ??Order ??ondansetron 4 mg/2 mL vial ??4 mg, 2 mL, IV Push, q8H, PRN: Nausea/Vomiting ??01/02/2023 18:18 ??Order ??labetalol 20 mg/4 mL inj ??10 mg, 2 mL, IV Push, q1H Interval, PRN: Blood Pressure (please specify) ??01/02/2023 18:17 ??Order ??famotidine 20 mg Tab ??20 mg, 1 Tabs, Oral, BID ??01/02/2023 18:17 ??Order ??acetaminophen 325 mg Tab ??650 mg, 2 Tabs, Oral, q4H, PRN: Pain (1-3)/Fever ??01/02/2023 18:17 ??Order ??pantoprazole 20 mg Oral EC Tab ??20 mg, 1 Tabs, Oral, Daily ??01/02/2023 18:17 ??Order ??tamsulosin 0.4 mg SA Cap ??0.4 mg, 1 Caps, Oral, BID ??01/02/2023 18:16 ??Order ??loratadine 10 mg Tab ??10 mg, 1 Tabs, Oral, Daily ??01/02/2023 18:16 ??Order ??levothyroxine 25 mcg (0.025 mg) Tab ??25 mcg, 1 Tabs, Oral, Daily ??01/02/2023 18:16 ??Order ??furosemide 40 mg Tab ??80 mg, 2 Tabs, Oral, Daily ??01/02/2023 18:16 ??Order ??FLUoxetine 20 mg Cap ??20 mg, 1 Caps, Oral, Daily ??01/02/2023 18:16 ??Order ??finasteride 5 mg Tab ??5 mg, 1 Tabs, Oral, Daily ??01/02/2023 18:16 ??Order ??cyclobenzaprine 10 mg Tab ??10 mg, 1 Tabs, Oral, qHS ??01/02/2023 18:16 ??Order ??cyanocobalamin 1000 mcg/mL INJ SOLN ??1,000 mcg, IntraMuscular, qMonday ??01/02/2023 18:16 ??Order ??clopidogrel 75 mg Tab ??75 mg, 1 Tabs, Oral, Daily ??01/02/2023 18:16 ??Order ??atorvastatin 40 mg Tab ??40 mg, 1 Tabs, Oral, qHS ??01/02/2023 18:16 ??Order ??carvedilol 3.125 mg Tab ??6.25 mg, 2 Tabs, Oral, BID ??01/02/2023 18:16 ??Order ??aspirin 81 mg Chew Tab ??81 mg, 1 Tabs, Chewed, Daily ??01/02/2023 18:16 ??Order ??ascorbic acid 500 mg Tab ??500 mg, Oral, BID ??01/02/2023 17:00 ??Order ??Admission/Observation/Transfer ??01/02/23 16:59:00 CLEAT BLANKER, Admit as Inpatient Estimated LOS: 2 to 3 Nights, Level of Care Telemetry, a fib w/ rvr, dyspnea on exertion, Attending: Margi Plummer MD ? Justification for Hospitalization No Justification for Hospitalization documented. ?? Histories Allergies Allergies ?(Active and Proposed Allergies Only) codeine? (Severity: Unknown severity, Onset: Unknown) ?Reactions: hives penicillin? (Severity: Unknown severity, Onset: Unknown) ?Reactions: hives ? Past Medical History Active Problems(5) CHF (congestive heart failure) COPD (chronic obstructive pulmonary disease) Diabetes HTN (hypertension) Hyperlipemia ? Past Surgical History No surgery history documented. ? Social History Alcohol Details:??Current, 1-2 times per year Substance Abuse Details:??Denies Tobacco Details:??Denies ? Family History No Family History documented. ? Functional Assessments ? Medications Home Medications ascorbic acid (Vitamin C 500 mg oral capsule)?500?Milligram?1?Capsules?By Mouth?2Times a Day aspirin (aspirin 81 mg oral tablet, chewable)?81?Milligram?1?Tabs?Chewed?Daily atorvastatin (atorvastatin 40 mg oral tablet)?40?Milligram?1?Tabs?By Mouth?at Bedtime carvedilol (carvedilol 6.25 mg oral tablet)?6.25?Milligram?1?Tabs?By Mouth?2 Times a Day clopidogrel (Plavix 75 mg oral tablet)?75?Milligram?1?Tabs?By Mouth?Daily cyanocobalamin (cyanocobalamin 1000 mcg/mL injectable solution)?1,000?Microgram?Intramuscular?Every Sunday cyclobenzaprine (cyclobenzaprine 10 mg oral tablet)?10?Milligram?1?Tabs?By Mouth?at Bedtime finasteride (Proscar 5 mg oral tablet)?5?Milligram?1?Tabs?By Mouth?Daily FLUoxetine (PROzac 20 mg oral capsule)?20?Milligram?1?Capsules?By Mouth?Daily furosemide (Lasix 80 mg oral tablet)?80?Milligram?1?Tabs?By Mouth?Daily levothyroxine (Synthroid 25 mcg (0.025 mg) oral tablet)?25?Microgram?1?Tabs?By Mouth?Daily loratadine (loratadine 10 mg oral tablet)?10?Milligram?1?Tabs?By Mouth?Daily metFORMIN (metFORMIN 500 mg oral tablet)?500?Milligram?1?Tabs?By Mouth?Daily?as needed?Blood Glucose (please specify)?for blood sugar over 200 multivitamin with minerals (Centrum Silver oral tablet)?1?Tabs?By Mouth?2 Times a Day pantoprazole (Protonix 20 mg oral enteric coated tablet)?20?Milligram?1?Tabs?By Mouth?Daily saw palmetto (saw palmetto 450 mg oral capsule)?450?Milligram?1?Each?By Mouth?2 Times a Day tamsulosin (Flomax 0.4 mg oral capsule)?0.4?Milligram?1?Capsules?By Mouth?2 Timesa Day ? Inpatient Medications Medications (19) Active SCHEDULED: (15) ascorbic acid 500 mg Tab (Vitamin C) ??500 mg 1 Tabs, Oral, BID aspirin 81 mg Chew Tab (aspirin) ??81 mg 1 Tabs, Chewed, Daily atorvastatin 40 mg Tab (atorvastatin) ??40 mg 1 Tabs, Oral, qHS carvedilol 3.125 mg Tab (carvedilol) ??6.25 mg 2 Tabs, Oral, BID With Meals clopidogrel 75 mg Tab (Plavix) ??75 mg 1 Tabs, Oral, Daily cyanocobalamin 1000 mcg/mL INJ SOLN (cyanocobalamin) ??1,000 mcg 1 mL, IntraMuscular, qMonday cyclobenzaprine 10 mg Tab (cyclobenzaprine) ??10 mg 1 Tabs, Oral, qHS enoxaparin 100 mg/1 mL SubQ syringe (Lovenox) ??100 mg 1 mL, SubCutaneous, q12H famotidine 20 mg Tab (famotidine) ??20 mg 1 Tabs, Oral, BID finasteride 5 mg Tab (Proscar) ??5 mg 1 Tabs, Oral, Daily FLUoxetine 20 mg Cap (PROzac) ??20 mg 1 Caps, Oral, Daily furosemide 100 mg/10 mL vial (furosemide) ??60 mg 6 mL, IV Push, BID levothyroxine 25 mcg (0.025 mg) Tab (Synthroid) ??25 mcg 1 Tabs, Oral, Daily loratadine 10 mg Tab (loratadine) ??10 mg 1 Tabs, Oral, Daily tamsulosin 0.4 mg SA Cap (Flomax) ??0.4 mg 1 Caps, Oral, BID CONTINUOUS: (1) diltiazem/0.7%NS 125 mg [5 mg/hr] + Premix 125 mL (dilTIAZem 125 mg [5 mg/hr] + Premix 125 mL) ??125 mL, IV, 5 mL/hr PRN: (3) acetaminophen 325 mg Tab (Tylenol) ??650 mg 2 Tabs, Oral, q4H labetalol 20 mg/4 mL inj (labetalol) ??10 mg 2 mL, IV Push, q1H Interval ondansetron 4 mg/2 mL vial (Zofran) ??4 mg 2 mL, IV Push, q8H ? IV Titrations (Last 24 hrs) Most Recent Infusions (Max of 3)? 01/02 19:00 01/02 16:35 ?? dilTIAZem 125 mg [5 mg/hr] + Premix 125 mL 10 mg/hr 5 mg/hr ? 72 hour Antibiotic History No qualifying data available... ?? Results Recent Labs Blood Gases pH Arterial 7.429 (Normal)?? 01/02/2023 20:34 Art pCO2 48.4 mmHg (High)?? 01/02/2023 20:34 Art pO2 108.0 mmHg (High)?? 01/02/2023 20:34 Art TempC,pH 7.429 (N/A)?? 01/02/2023 20:34 Art TempC,PCO2 48.4 mmHg (N/A)?? 01/02/2023 20:34 Art TempC,PO2 108.0 mmHg (N/A)?? 01/02/2023 20:34 Art HCO3 30.4 mmol/L (High)?? 01/02/2023 20:34 Art Base Excess 6.5 mmol/L (High)?? 01/02/2023 20:34 Art sO2 99 % (Normal)?? 01/02/2023 20:34 Art tHB 12.6 gm/dL (Low)?? 01/02/2023 20:34 Art O2 Hb 97 % (Normal)?? 01/02/2023 20:34 Art Carboxyhemoglobin 1.5 % (Normal)?? 01/02/2023 20:34 Art Methemoglobin 0.6 % (Normal)?? 01/02/2023 20:34 POC Juan Antonio Test POS (N/A)?? 01/02/2023 20:34 POC Del Sys ROOM AIR (N/A)?? 01/02/2023 20:34 POC FIO2 21 % (N/A)?? 01/02/2023 20:34 POC Pt Temp 37.0 DegC (N/A)?? 01/02/2023 20:34 POC Site Radial Left (N/A)?? 01/02/2023 20:34 POC Sample Arterial (N/A)?? 01/02/2023 20:34 POC Vent Mode NO VENT (N/A)?? 01/02/2023 20:34 Art Hct 38.6 % (Low)?? 01/02/2023 20:34 Art Lactate 1.2 mmol/L (Normal)?? 01/02/2023 20:34 Vending Machine Assembler ID [id number] (N/A)?? 01/02/2023 20:34 ?? Cardiac BNP 407.0 pg/mL (High)?? 01/02/2023 14:50 Troponin TNIH 18.36 ng/L (Normal)?? 01/02/2023 15:48 ?? General Chemistry Glucose Level 125 mg/dL (High)?? 01/02/2023 14:50 Arterial Glucose 134 mg/dL (High)?? 01/02/2023 20:34 Sodium 143 mmol/L (Normal)?? 01/02/2023 14:50 Art Na 142 mmol/L (Normal)?? 01/02/2023 20:34 Potassium 3.8 mmol/L (Normal)?? 01/02/2023 14:50 Art K 3.6 mmol/L (Normal)?? 01/02/2023 20:34 Chloride 105 mmol/L (Normal)?? 01/02/2023 14:50 CO2 31.2 mmol/L (High)?? 01/02/2023 14:50 Anion Gap 7 mmol/L (Normal)?? 01/02/2023 14:50 BUN 22 mg/dL (Normal)?? 01/02/2023 14:50 Creatinine 0.97 mg/dL (Normal)?? 01/02/2023 14:50 BUN/Creat Ratio 22.68 Ratio (High)?? 01/02/2023 14:50 Calcium 8.7 mg/dL (Normal)?? 01/02/2023 14:50 Art iCa 1.1 mmol/L (Normal)?? 01/02/2023 20:34 Mg Lvl 1.9 mg/dL (Normal)?? 01/02/2023 14:50 Estimated Creatinine Clearance 56.64 mL/min ()?? 01/02/2023 16:56 eGFR Cr 80 mL/min/1.73m2 (N/A)?? 01/02/2023 14:50 eGFR Pediatric Not Reported mL/min/1.73m2 (N/A)?? 01/02/2023 14:50 ?? General Hematology WBC 7.50 x10e3/mcL (Normal)?? 01/02/2023 14:50 RBC 4.08 x10e6/mcL (Low)?? 01/02/2023 14:50 Hgb 13.40 gm/dL (Low)?? 01/02/2023 14:50 Hct 39.30 % (Low)?? 01/02/2023 14:50 MCV 96.5 Femtoliters (Normal)?? 01/02/2023 14:50 MCH 32.90 pg (Normal)?? 01/02/2023 14:50 MCHC 34.10 gm/dL (Normal)?? 01/02/2023 14:50 RDW-CV 14.30 % (Normal)?? 01/02/2023 14:50 RDW-SD 49.40 Femtoliters (High)?? 01/02/2023 14:50 Plt 198 x10e3/mcL (Normal)?? 01/02/2023 14:50 MPV 8.40 Femtoliters (Normal)?? 01/02/2023 14:50 NRBC % 0 % (Normal)?? 01/02/2023 14:50 Neut % Auto 61.3 % (Normal)?? 01/02/2023 14:50 Lymph % Auto 25.9 % (Normal)?? 01/02/2023 14:50 [place] % Auto 9.8 % (Normal)?? 01/02/2023 14:50 Eos % Auto 2.5 % (Normal)?? 01/02/2023 14:50 Baso % Auto 0.5 % (Normal)?? 01/02/2023 14:50 Neut # Auto 4.6 x10e3/mcL (Normal)?? 01/02/2023 14:50 Lymph # Auto 1.9 x10e3/mcL (Normal)?? 01/02/2023 14:50 [place] # Auto 0.7 x10e3/mcL (Normal)?? 01/02/2023 14:50 Eos # Auto 0.2 x10e3/mcL (Normal)?? 01/02/2023 14:50 Baso # Auto 0.0 x10e3/mcL (Normal)?? 01/02/2023 14:50 ?? Infectious Disease Influenza A Not Detected (Normal)?? 01/02/2023 15:42 Influenza B Not Detected (Normal)?? 01/02/2023 15:42 RSV Not Detected (Normal)?? 01/02/2023 15:42 ?? Other Microbiology Adenovirus Not Detected (Normal)?? 01/02/2023 15:42 Coronavirus 229E Not Detected (Normal)?? 01/02/2023 15:42 Coronavirus HKU1 Not Detected (Normal)?? 01/02/2023 15:42 Coronavirus NL63 Not Detected (Normal)?? 01/02/2023 15:42 Coronavirus OC43 Not Detected (Normal)?? 01/02/2023 15:42 Hum Metapneumo Not Detected (Normal)?? 01/02/2023 15:42 Hum Rhino/Entero Not Detected (Normal)?? 01/02/2023 15:42 Parainflu Vir 1 Not Detected (Normal)?? 01/02/2023 15:42 Parainflu Vir 2 Not Detected (Normal)?? 01/02/2023 15:42 Parainflu Vir 3 Not Detected (Normal)?? 01/02/2023 15:42 Parainflu Vir 4 Not Detected (Normal)?? 01/02/2023 15:42 Bordetella pertuss Not Detected (Normal)?? 01/02/2023 15:42 Chlam pneumoniae Not Detected (Normal)?? 01/02/2023 15:42 Mycoplas pneumoniae Not Detected (Normal)?? 01/02/2023 15:42 Bordetella parapertussis Not Detected (Normal)?? 01/02/2023 15:42 ?? SARS-CoV-2/Covid-19 Reason for Testing Diagnostic (Normal)?? 01/02/2023 15:42 SARS-CoV-2 Not Detected (Normal)?? 01/02/2023 15:42 Suspect COVID? Yes (Normal)?? 01/02/2023 15:42 Symptomatic as defined by CDC? Yes (Normal)?? 01/02/2023 15:42 Hospitalized due to COVID? None (N/A)?? 01/02/2023 15:42 In ICU? None (N/A)?? 01/02/2023 15:42 status? Not (Normal)?? 01/02/2023 15:42 Employed in healthcare? None (N/A)?? 01/02/2023 15:42 Group care resident? No (Normal)?? 01/02/2023 15:42 ?? Thyroid T4 Free 0.86 ng/dL (Low)?? 01/02/2023 14:50 TSH 4.543 mc Intl units/mL (Normal)?? 01/02/2023 14:50 ? Abnormal Labs ?? Blood Gases ??Art Base Excess ??6.5 mmol/L (High) ??01/02/2023 20:34 ??Art HCO3 ??30.4 mmol/L (High) ??01/02/2023 20:34 ??Art Hct ??38.6 % (Low) ??01/02/2023 20:34 ??Art pCO2 ??48.4 mmHg (High) ??01/02/2023 20:34 ??Art pO2 ??108.0 mmHg (High) ??01/02/2023 20:34 ??Art tHB ??12.6 gm/dL (Low) ??01/02/2023 20:34 ? Cardiac ??BNP ??407.0 pg/mL (High) ??01/02/2023 14:50 ? General Chemistry ??Arterial Glucose ??134 mg/dL (High) ??01/02/2023 20:34 ??BUN/Creat Ratio ??22.68 Ratio (High) ??01/02/2023 14:50 ??CO2 ??31.2 mmol/L (High) ??01/02/2023 14:50 ??Glucose Level ??125 mg/dL (High) ??01/02/2023 14:50 ? General Hematology ??Hct ??39.30 % (Low) ??01/02/2023 14:50 ??Hgb ??13.40 gm/dL (Low) ??01/02/2023 14:50 ??RBC ??4.08 x10e6/mcL (Low) ??01/02/2023 14:50 ??RDW-SD ??49.40 Femtoliters (High) ??01/02/2023 14:50 ? Thyroid ??T4 Free ??0.86 ng/dL (Low) ??01/02/2023 14:50 ? Note: Critical results are displayed in red. ? CBC, BMP, Coagulation Trend (last 4 resulted) WBC 7.50 ?? 01/02/2023 ??14:50 ? Hgb 13.40 ??L?? 01/02/2023 ??14:50 ? Hct 39.30 ??L?? 01/02/2023 ??14:50 ? Baso # Auto 0.0 ?? 01/02/2023 ??14:50 ? Baso % Auto 0.5 ?? 01/02/2023 ??14:50 ? Eos # Auto 0.2 ?? 01/02/2023 ??14:50 ? Eos % Auto 2.5 ?? 01/02/2023 ??14:50 ? Lymph # Auto 1.9 ?? 01/02/2023 ??14:50 ? Lymph % Auto 25.9 ?? 01/02/2023 ??14:50 ? [place] # Auto 0.7 ?? 01/02/2023 ??14:50 ? [place] % Auto 9.8 ?? 01/02/2023 ??14:50 ? Neut # Auto 4.6 ?? 01/02/2023 ??14:50 ? Neut % Auto 61.3 ?? 01/02/2023 ??14:50 ? Plt 198 ?? 01/02/2023 ??14:50 ? Glucose Level 125 ??H?? 01/02/2023 ??14:50 ? Sodium 143 ?? 01/02/2023 ??14:50 ? Potassium 3.8 ?? 01/02/2023 ??14:50 ? Chloride 105 ?? 01/02/2023 ??14:50 ? CO2 31.2 ??H?? 01/02/2023 ??14:50 ? BUN 22 ?? 01/02/2023 ??14:50 ? Creatinine 0.97 ?? 01/02/2023 ??14:50 ? BUN/Creat Ratio 22.68 ??H?? 01/02/2023 ??14:50 ? Mg Lvl 1.9 ?? 01/02/2023 ??14:50 ? Calcium 8.7 ?? 01/02/2023 ??14:50 ? CBC (Last Within 24hrs) WBC: 7.5 x10e3/mcL (14:50) Hgb:??13.4 gm/dL??Low (14:50) Hct:??39.3 %??Low (14:50) Plt: 198 x10e3/mcL (14:50) ?? Differential (Last Within 24hrs)?? - Automated -?? Neut % Auto: 61.3 % (14:50) Lymph % Auto: 25.9 % (14:50) [place] % Auto: 9.8 % (14:50) Eos % Auto: 2.5 % (14:50) Baso % Auto: 0.5 % (14:50) Neut # Auto: 4.6 x10e3/mcL (14:50) Lymph # Auto: 1.9 x10e3/mcL (14:50) [place] # Auto: 0.7 x10e3/mcL (14:50) Eos # Auto: 0.2 x10e3/mcL (14:50) Baso # Auto: 0 x10e3/mcL (14:50) ? BMP, Mg, and Phos (Last Within 24hrs) Sodium: 143 mmol/L (14:50) Potassium: 3.8 mmol/L (14:50) Chloride: 105 mmol/L (14:50) CO2:??31.2 mmol/L??High (14:50) BUN: 22 mg/dL (14:50) Creatinine: 0.97 mg/dL (14:50) Glucose Level:??125 mg/dL??High (14:50) Calcium: 8.7 mg/dL (14:50) Mg Lvl: 1.9 mg/dL (14:50) ? Microbiology ?? Respiratory Panel PCR?? Completed?? Source: Nasopharyngeal Body Site: ?? Collected Dt/Tm: 01/02/2023 15:42 Last Updated Dt/Tm: 01/02/2023 16:53 ? Cardiology Labs BNP:??407 pg/mL??High (01/02/23 14:50:00) Troponin TNIH: 18.36 ng/L (01/02/23 15:48:00) Troponin TNIH: 17.99 ng/L (01/02/23 14:50:00) ?? Blood Gases (Last Within 24hrs) pH Arterial: 7.429 (20:34) Art pO2:??108 mmHg??High (20:34) Art pCO2:??48.4 mmHg??High (20:34) Art HCO3:??30.4 mmol/L??High (20:34) Art sO2: 99 % (20:34) ? Electronically Signed By: Margi Plummer MD On: 01.03.2023 07:46 CLEAT BLANKER Nurse Progress note * Dangelo Rincon RN: PERFORM Event Display: Progress Note-Nurse Authored Date: 24-hour chart check done * Dangelo Rincon RN: PERFORM Event Display: Progress Note-Nurse Authored Date: chart check done Note * Ranjit MODI, Ashutosh Quiroga: PERFORM Event Display: Consult - Pulmonology Authored Date: Chief Complaint/Reason for Consultation Pulmonary critical care evaluation of patient with COPD ORLIN chronic respiratory failure admitted with A-fib RVR History of Present Illness ??77/M with COPD previously on Home O2 for hypoxemic resp failure. ??Obstructive sleep apnea on home CPAP??,,??congestive heart failure??reported ejection fraction of 35%,?? Non insulin Rxed DM2, HTN. HLD. Hypothyroidism. BPH. Depression , Hx Paroxysmal A Fib Rxed at [facility] overnight and DCed without Cardio involvement , was seen at DR Joaquín Collier today found to be in A Fib RVR with?? severe chestpain 08/28 , resp distress, weakness?? sent to ER Heart for eval and Rx.?? In the ER he was placed on Cardizem drip and O2 via nasal cannula??EKG showed A-fib with??poor R progression troponin had been negative x2??beta natruretic peptide level 407??chest x-ray showing bilateral pulmonary edema, and arterial blood gases pH was 7.42 PCO2 48 PO2??108, patient remained on Cardizem drip at 10 mg/h hewas started on carvedilol??and started on IV Lasix??is currently on oxygen??3 L nasal cannula he issitting up at the edge of the bed his O2 saturation is??97% breathing at rate of 18 blood pressure is 97/67 heart rate of??81 temperature 36.6, patient denies any chest pain denies??cough ? Review of Systems Review of Systems: Constitutional:??no [...] bruising. Psychiatric: No depression or anxiety. Objective ?? Measurements (most recent)?? Height 167.64 cm?Donna Espinosa RN ??01/02 14:29 Weight 95.90 kg?Dangelo Rincon RN ??01/03 06:49 Body Mass Index 34.12 kg/m2?Dangelo Rincon RN ??01/03 06:49 Scale Type Bed scale?Dangelo Rincon RN ??01/03 06:49 ? Vital Signs (24 hrs) Last Charted?? Minimum?? Maximum?? Temp?? 36.6?? 01/03/2023 07:08?? 36.6?? 01/02/2023 14:29 ?? 37?? 01/02/2023 23:43?? Heart Rate Monitored?? 81?? 01/02/2023 23:00?? 81?? 01/02/2023 21:00 ?? H??124?? 01/02/2023 17:07?? Resp Rate?? 18?? 01/03/2023 07:08?? 18?? 01/02/2023 23:43 ?? H??24?? 01/02/2023 14:29?? SBP?? 97?? 01/03/2023 07:08?? 97?? 01/03/2023 07:08 ?? 119?? 01/02/2023 14:29?? DBP?? 67?? 01/03/2023 07:08?? L??55?? 01/02/2023 19:56 ?? H??86?? 01/02/2023 20:00?? MAP?? 77?? 01/03/2023 07:08?? 73?? 01/02/2023 19:56 ?? 93?? 01/02/2023 20:00?? SpO2?? 97?? 01/03/2023 07:08?? 95?? 01/03/2023 04:28 ?? 99?? 01/02/2023 15:01?? O2 Flow Rate?? on 3 ? l/min?? on 3 ? l/min? O2 Therapy?? Nasal cannula?? Nasal cannula? Assisted Ventilation Settings (Last Within 24hrs)?? FIO2: 3 % (23:00) ? I&O 24 Hour Total? 01/02 16:59 01/03 07:00 01/02 07:00 01/01 07:00 12/31 07:00 ?? 01/03 10:05 01/03 10:05 01/03 06:59 01/02 06:59 01/01 06:59 Intake ?414.9 ?0 ?414.9 ?0 ?0 Output ? 1260 ?0 ? 1260 ?0 ?0 Net Total ? -845.1 ?0 ? -845.1 ?0 ?0 ? Physical Exam General: Obesity BMI [...] : Cooperative with appropriate mood and affect Assessment/Plan Diagnoses Acute on chronic??respiratory failure in a patient who was previously on home oxygen therapy?? Acute on chronic congestive heart failure with reduced ejection fraction Atrial fibrillation with rapid ventricular response Chronic obstructive pulmonary disease former heavy smoker Obstructive sleep apnea??and hypersomnia on on home CPAP Adult BMI 34.0-34.9 kg/sq m BPH Hypothyroid diabetes mellitus? Plan : Oxygen 2 L nasal cannula??daytime CPAP??12 cm H2O nighttime and as needed??daytime Continue Cardizem drip??and follow cardiology recommendations Diuresis with IV Lasix??strict intake output and follow her renal function Placed on bronchodilators only on as needed basis albuterol 1.25 mg every 8 hours Continue??DVT prophylaxis with Lovenox Bilateral lower extremity venous Doppler D-dimers if elevated obtain CT angiogram Follow cardiology recommendations Head of bed elevation aspiration precaution Condition discussed with the patient's family at the bedside Management discussed with the nurse in charge Time spent at the patient's bedside 35 minutes We will continue close observation and management as detailed above Thank you for asking me to participate in the care of this patient ? Histories Allergies Allergies ?(Active and Proposed Allergies Only) codeine? (Severity: Unknown severity, Onset: Unknown) ?Reactions: hives penicillin? (Severity: Unknown severity, Onset: Unknown) ?Reactions: hives ? Past Medical History Active Problems(5) CHF (congestive heart failure) COPD (chronic obstructive pulmonary disease) Diabetes HTN (hypertension) Hyperlipemia ? Past Surgical History No surgery history documented. ? Social History Alcohol Details:??Current, 1-2 times per year Substance Abuse Details:??Denies Tobacco Details:??Denies ? Family History No Family History documented. ? Medications Home Medications ascorbic acid (Vitamin C 500 mg oral capsule)?500?Milligram?1?Capsules?By Mouth?2Times a Day aspirin (aspirin 81 mg oral tablet, chewable)?81?Milligram?1?Tabs?Chewed?Daily atorvastatin (atorvastatin 40 mg oral tablet)?40?Milligram?1?Tabs?By Mouth?at Bedtime carvedilol (carvedilol 6.25 mg oral tablet)?6.25?Milligram?1?Tabs?By Mouth?2 Times a Day clopidogrel (Plavix 75 mg oral tablet)?75?Milligram?1?Tabs?By Mouth?Daily cyanocobalamin (cyanocobalamin 1000 mcg/mL injectable solution)?1,000?Microgram?Intramuscular?Every Sunday cyclobenzaprine (cyclobenzaprine 10 mg oral tablet)?10?Milligram?1?Tabs?By Mouth?at Bedtime finasteride (Proscar 5 mg oral tablet)?5?Milligram?1?Tabs?By Mouth?Daily FLUoxetine (PROzac 20 mg oral capsule)?20?Milligram?1?Capsules?By Mouth?Daily furosemide (Lasix 80 mg oral tablet)?80?Milligram?1?Tabs?By Mouth?Daily levothyroxine (Synthroid 25 mcg (0.025 mg) oral tablet)?25?Microgram?1?Tabs?By Mouth?Daily loratadine (loratadine 10 mg oral tablet)?10?Milligram?1?Tabs?By Mouth?Daily metFORMIN (metFORMIN 500 mg oral tablet)?500?Milligram?1?Tabs?By Mouth?Daily?as needed?Blood Glucose (please specify)?for blood sugar over 200 multivitamin with minerals (Centrum Silver oral tablet)?1?Tabs?By Mouth?2 Times a Day pantoprazole (Protonix 20 mg oral enteric coated tablet)?20?Milligram?1?Tabs?By Mouth?Daily saw palmetto (saw palmetto 450 mg oral capsule)?450?Milligram?1?Each?By Mouth?2 Times a Day tamsulosin (Flomax 0.4 mg oral capsule)?0.4?Milligram?1?Capsules?By Mouth?2 Timesa Day ? Inpatient Medications Medications (20) Active SCHEDULED: (15) ascorbic acid 500 mg Tab (Vitamin C) ??500 mg 1 Tabs, Oral, BID aspirin 81 mg Chew Tab (aspirin) ??81 mg 1 Tabs, Chewed, Daily atorvastatin 40 mg Tab (atorvastatin) ??40 mg 1 Tabs, Oral, qHS carvedilol 3.125 mg Tab (carvedilol) ??6.25 mg 2 Tabs, Oral, BID With Meals clopidogrel 75 mg Tab (Plavix) ??75 mg 1 Tabs, Oral, Daily cyanocobalamin 1000 mcg/mL INJ SOLN (cyanocobalamin) ??1,000 mcg 1 mL, IntraMuscular, qMonday cyclobenzaprine 10 mg Tab (cyclobenzaprine) ??10 mg 1 Tabs, Oral, qHS enoxaparin 100 mg/1 mL SubQ syringe (Lovenox) ??100 mg 1 mL, SubCutaneous, q12H famotidine 20 mg Tab (famotidine) ??20 mg 1 Tabs, Oral, BID finasteride 5 mg Tab (Proscar) ??5 mg 1 Tabs, Oral, Daily FLUoxetine 20 mg Cap (PROzac) ??20 mg 1 Caps, Oral, Daily furosemide 100 mg/10 mL vial (furosemide) ??60 mg 6 mL, IV Push, BID levothyroxine 25 mcg (0.025 mg) Tab (Synthroid) ??25 mcg 1 Tabs, Oral, Daily loratadine 10 mg Tab (loratadine) ??10 mg 1 Tabs, Oral, Daily tamsulosin 0.4 mg SA Cap (Flomax) ??0.4 mg 1 Caps, Oral, BID CONTINUOUS: (1) diltiazem/0.7%NS 125 mg [5 mg/hr] + Premix 125 mL (dilTIAZem 125 mg [5 mg/hr] + Premix 125 mL) ??125 mL, IV, 5 mL/hr PRN: (4) acetaminophen 325 mg Tab (Tylenol) ??650 mg 2 Tabs, Oral, q4H diphenhydrAMINE 25 mg Cap (Benadryl) ??50 mg 2 Caps, Oral, qHS labetalol 20 mg/4 mL inj (labetalol) ??10 mg 2 mL, IV Push, q1H Interval ondansetron 4 mg/2 mL vial (Zofran) ??4 mg 2 mL, IV Push, q8H ? IV Titrations (Last 24 hrs) Most Recent Infusions (Max of 3)? 01/03 04:00 01/03 02:59 01/02 19:00 dilTIAZem 125 mg [5 mg/hr] + Premix 125 mL 5 mg/hr 10 mg/hr 10 mg/hr ? Results CBC, BMP, Coagulation Trend (last 4 resulted) WBC 7.50 ?? 01/02/2023 ??14:50 ? Hgb 13.40 ??L?? 01/02/2023 ??14:50 ? Hct 39.30 ??L?? 01/02/2023 ??14:50 ? Baso # Auto 0.0 ?? 01/02/2023 ??14:50 ? Baso % Auto 0.5 ?? 01/02/2023 ??14:50 ? Eos # Auto 0.2 ?? 01/02/2023 ??14:50 ? Eos % Auto 2.5 ?? 01/02/2023 ??14:50 ? Lymph # Auto 1.9 ?? 01/02/2023 ??14:50 ? Lymph % Auto 25.9 ?? 01/02/2023 ??14:50 ? [place] # Auto 0.7 ?? 01/02/2023 ??14:50 ? [place] % Auto 9.8 ?? 01/02/2023 ??14:50 ? Neut # Auto 4.6 ?? 01/02/2023 ??14:50 ? Neut % Auto 61.3 ?? 01/02/2023 ??14:50 ? Plt 198 ?? 01/02/2023 ??14:50 ? Glucose Level 152 ??H?? 01/03/2023 ??04:30 125 ??H?? 01/02/2023 ??14:50 ? Sodium 137 ?? 01/03/2023 ??04:30 143 ?? 01/02/2023 ??14:50 ? Potassium 3.5 ?? 01/03/2023 ??04:30 3.8 ?? 01/02/2023 ??14:50 ? Chloride 103 ?? 01/03/2023 ??04:30 105 ?? 01/02/2023 ??14:50 ? CO2 30 ?? 01/03/2023 ??04:30 31.2 ??H?? 01/02/2023 ??14:50 ? BUN 24 ??H?? 01/03/2023 ??04:30 22 ?? 01/02/2023 ??14:50 ? Creatinine 1.1 ?? 01/03/2023 ??04:30 0.97 ?? 01/02/2023 ??14:50 ? BUN/Creat Ratio 21.82 ?? 01/03/2023 ??04:30 22.68 ??H?? 01/02/2023 ??14:50 ? Mg Lvl 2.0 ?? 01/03/2023 ??04:30 1.9 ?? 01/02/2023 ??14:50 ? Calcium 8.9 ?? 01/03/2023 ??04:30 8.7 ?? 01/02/2023 ??14:50 ? BMP, Mg, and Phos (Last Within 24hrs) Sodium: 137 mmol/L (04:30) Potassium: 3.5 mmol/L (04:30) Chloride: 103 mmol/L (04:30) CO2: 30 mmol/L (04:30) BUN:??24 mg/dL??High (04:30) Creatinine: 1.1 mg/dL (04:30) Glucose Level:??152 mg/dL??High (04:30) Calcium: 8.9 mg/dL (04:30) Mg Lvl: 2 mg/dL (04:30) ? Microbiology ?? Respiratory Panel PCR?? Completed?? Source: Nasopharyngeal Body Site: ?? Collected Dt/Tm: 01/02/2023 15:42 Last Updated Dt/Tm: 01/02/2023 16:53 ? Cardiology Labs BNP:??407 pg/mL??High (01/02/23 14:50:00) Troponin TNIH: 18.36 ng/L (01/02/23 15:48:00) Troponin TNIH: 17.99 ng/L (01/02/23 14:50:00) ?? Blood Gases (Last Within 24hrs) pH Arterial: 7.429 (20:34) Art pO2:??108 mmHg??High (20:34) Art pCO2:??48.4 mmHg??High (20:34) Art HCO3:??30.4 mmol/L??High (20:34) Art sO2: 99 % (20:34) ?Reason For Exam Palpitations;Other (Please Specify) ?? [facility] ONE VIEW FRONTAL CHEST RADIOGRAPH ?? CLINICAL HISTORY: Palpitations ?? COMPARISON: 12/17/2022 frontal chest radiograph ?? FINDINGS: ? Radiopacities project over the chest, more evident on the right. The chest is clearof gross pleural fluid and pneumothorax. Heart size evaluation is limited. ?? IMPRESSION: ? Findings suggestive of pulmonary edema and/or bilateral pneumonic infiltrates/atelectasis more evident on the right persist. ?? This document was electronically signed by Yg Machuca MD 01/02/2023 4:44 PM {[id number]} ?? Signature Line Final ?? Dictated by: ? Sven MODIYg ? Dictated DT/TM: ?01/02/2023 4:43 pm Electronically Signed By: Ashutosh Church MD On: 01.03.2023 10:25 CLEAT BLANKER * Ezekiel Pacheco MD: MODIFY, PERFORM Event Display: Consult - Cardiology Authored Date: [id number] Chief Complaint/Reason for Consultation worsening shortness of breath and fast heartrate History of Present Illness ?? Requesting physician: Dr. Hamilton Reason for?? Consultation: A-fib Established senior developer: Dr. Yanes ?? This is a 77-year-old male with past medical history significant for CHF, diabetes, hypertension, COPD on home O2 who came to Dr. Yanes's office complaining of significant shortness of breath and was found to be in A-fib and RVR which is a new diagnosis for him.?? Since the patient was in mild to m oderate respiratory distress he was referred to the emergency department at [facility] for further work-up.?? He was also complaining of retrosternal chest pain which was severe that time 10 out of 10 and retrosternal.?? He was worsened by ambulation.?? At that time the patient was tachycardic and in A-fib. ?? Upon arrival to the emergency department his heart rate was better controlled and his symptoms resolved.?? Currently he denies any chest pain or significant shortness of breath.?? His breathing is atbaseline. He admits chronic shortness of breath and uses home O2 due to COPD. ?? ECG showing atrial fibrillation with delayed R wave progression.?? Possible old inferior wall DC.??PVCs. Troponins negative x2. BNP 407. Chest x-ray suggestive of pulmonary edema ? Social history: Currently denies alcohol, tobacco or recreational drug use.?? Lives at home. Family history: Positive for hypertension.?? Per lipidemia. ? Review of Systems Constitutional:??No??fever,??no??chills,??no??sweats.??+ Decreased activity. ? Eye:??No??recent visual problem, No icterus. ? Ear/Nose/Mouth/Throat:??No??sore throat.?? No hearing changes.?? No??oral lesions.. ? Respiratory: Acute on chronic shortness of breath.,?? No??cough,??no??sputum production.. ?Home O2 dependent Cardiovascular:??Heart palpitations. ??Chest pain as per HPI. ??Denies??orthopnea,??PND,??lower extremity edema,??claudication,??palpitations,??syncope. ? Gastrointestinal: Denies??blood in stools. No??nausea, No??vomiting, No??hematemesis. ?? Denies abdominal pain. ? Genitourinary: ??No dysuria, No hematuria. ? Hematology/Lymphatics:??No??bruising tendency. ? Endocrine:??No cold intolerance, No heat intolerance. ? Musculoskeletal:??No muscleskeletal pain.?? Unchanged range of motion. ? Integumentary:??No rash, No breakdown. ? Neurologic:??Denies focal weakness. ?? Denies trauma to head.?? No confusion. ? Psychiatric:??No anxiety, No depression. ? All other systems are negative. Objective ?? Measurements (most recent)?? Height 167.64 cm?Donna Espinosa RN ??01/02 14:29 Weight 96.16 kg?Donna Espinosa RN ??01/02 14:29 Body Mass Index 34.22 kg/m2?Donna Espinosa RN ??01/02 14:29 ? Vital Signs (24 hrs) Last Charted?? Minimum?? Maximum?? Temp?? 36.6?? 01/02/2023 14:29?? 36.6?? 01/02/2023 14:29 ?? 36.6?? 01/02/2023 14:29?? Heart Rate Monitored?? H??124?? 01/02/2023 17:07?? 95?? 01/02/2023 16:00 ?? H??124?? 01/02/2023 17:07?? Resp Rate?? H??24?? 01/02/2023 14:29?? H??24?? 01/02/2023 14:29 ?? H??24?? 01/02/2023 14:29?? SBP?? 112?? 01/02/2023 17:07?? 98?? 01/02/2023 15:30 ?? 119?? 01/02/2023 14:29?? DBP?? 69?? 01/02/2023 17:07?? 69?? 01/02/2023 16:30 ?? 76?? 01/02/2023 14:29?? MAP?? 74?? 01/02/2023 17:07?? 74?? 01/02/2023 17:07 ?? 87?? 01/02/2023 14:45?? SpO2?? 99?? 01/02/2023 17:07?? 98?? 01/02/2023 14:29 ?? 99?? 01/02/2023 15:01?? O2 Therapy? Room air? I&O 24 Hour Total? No Data Available ? Physical Exam General: Alert and oriented x??3.?? No acute distress.?? Moist mucous membranes.?? Obese. ?Elderly-appearing.?? On nasal cannula Eye:??Normal conjunctiva. ? Anicteric sclerae Neck:??No??carotid bruit. ??Jugular venous pressure not able to visualize due to neck thickness Respiratory: Bibasilar rales. ??Mildly tachypneic.,?? Respirations are non- labored. ? Cardiovascular: Irregular??rate and rhythm.?? Distant heart sounds. ??No murmurs appreciated. ??Faint pulses in the lower extremities.?? Trace edema in the lower extremities.?? Normal distal perfusion. Gastrointestinal:??Soft, Non-tender, Non-distended, No organomegaly. ?Obese abdomen Musculoskeletal:??Normal strength and no deformities. ? Integumentary:??Warm. ?No rashes noted Neurologic:??No focal deficits. ?Normal muscle strength. Psychiatry:??Appropriate mood and affection. ??Cooperative Assessment/Plan Diagnoses Atrial fibrillation with RVR ??(I48.91) Dyspnea on exertion ??(R06.09) Acute on chronic HFrEF CAD status post PCI Chest pain COPD Chronic hypoxemia on home O2 Hypertension Hypothyroidism Diabetes Obesity Advanced age Hyperlipidemia? Atrial fibrillation RVR: New diagnosis.?? RVR on presentation currently better controlled diltiazem drip. Continue rate control at this time??and??plan for possible TRINY and direct- current cardioversion tomorrow by Dr. Yanes if patient has not converted.?? Unknown onset of A-fib. ?? Acute on chronic congestive heart failure with reduced ejection fraction: Volume overloaded at this time. ??IV diuretics. ??Monitor fluid balance and adjust diuretics as needed. Attempt to discontinue diltiazem due to acute heart failure and possible low ejection fraction. Monitor creatinine electrolytes. Optimize medical therapy as tolerated. ? CAD:??Stable. ??No evidence of ischemia this time. ??Negative troponins. ??EKG with no ischemic changes.?? Previous history of PCI. Optimize medical therapy and risk factor modifications. ?? COPD: On chronic home O2 due to hypoxemia. ??Currently stable.?? No respiratory distress at this time. ?? Diabetes: Low carbohydrate diet. ??Medical therapy as per primary. ?? Hyperlipidemia: Statins. ?? Hypertension: Monitor and adjust therapy as needed. ?? Over 35 minutes was spent in this case including assessment of the patient, evaluation of the chartand ancillary test results, development of a plan and discussing with the patient, family members and healthcare providers. ?? Dr. Yanes to follow-up in a.m. ?? Histories Allergies Allergies ?(Active and Proposed Allergies Only) codeine? (Severity: Unknown severity, Onset: Unknown) ?Reactions: hives penicillin? (Severity: Unknown severity, Onset: Unknown) ?Reactions: hives ? Past Medical History Active Problems(5) CHF (congestive heart failure) COPD (chronic obstructive pulmonary disease) Diabetes HTN (hypertension) Hyperlipemia ? Past Surgical History No surgery history documented. ? Social History Alcohol Details:??Current, 1-2 times per year Substance Abuse Details:??Denies Tobacco Details:??Denies ? Family History No Family History documented. ? Medications Home Medications ascorbic acid (Vitamin C 500 mg oral capsule)?500?Milligram?1?Capsules?By Mouth?2Times a Day aspirin (aspirin 81 mg oral tablet, chewable)?81?Milligram?1?Tabs?Chewed?Daily atorvastatin (atorvastatin 40 mg oral tablet)?40?Milligram?1?Tabs?By Mouth?at Bedtime carvedilol (carvedilol 6.25 mg oral tablet)?6.25?Milligram?1?Tabs?By Mouth?2 Times a Day clopidogrel (Plavix 75 mg oral tablet)?75?Milligram?1?Tabs?By Mouth?Daily cyanocobalamin (cyanocobalamin 1000 mcg/mL injectable solution)?1,000?Microgram?Intramuscular?Every Sunday cyclobenzaprine (cyclobenzaprine 10 mg oral tablet)?10?Milligram?1?Tabs?By Mouth?at Bedtime finasteride (Proscar 5 mg oral tablet)?5?Milligram?1?Tabs?By Mouth?Daily FLUoxetine (PROzac 20 mg oral capsule)?20?Milligram?1?Capsules?By Mouth?Daily furosemide (Lasix 80 mg oral tablet)?80?Milligram?1?Tabs?By Mouth?Daily levothyroxine (Synthroid 25 mcg (0.025 mg) oral tablet)?25?Microgram?1?Tabs?By Mouth?Daily loratadine (loratadine 10 mg oral tablet)?10?Milligram?1?Tabs?By Mouth?Daily metFORMIN (metFORMIN 500 mg oral tablet)?500?Milligram?1?Tabs?By Mouth?Daily?as needed?Blood Glucose (please specify)?for blood sugar over 200 multivitamin with minerals (Centrum Silver oral tablet)?1?Tabs?By Mouth?2 Times a Day pantoprazole (Protonix 20 mg oral enteric coated tablet)?20?Milligram?1?Tabs?By Mouth?Daily saw palmetto (saw palmetto 450 mg oral capsule)?450?Milligram?1?Each?By Mouth?2 Times a Day tamsulosin (Flomax 0.4 mg oral capsule)?0.4?Milligram?1?Capsules?By Mouth?2 Timesa Day ? Inpatient Medications Medications (18) Active SCHEDULED: (14) ascorbic acid 500 mg Tab (Vitamin C) ??500 mg 1 Tabs, Oral, BID aspirin 81 mg Chew Tab (aspirin) ??81 mg 1 Tabs, Chewed, Daily atorvastatin 40 mg Tab (atorvastatin) ??40 mg 1 Tabs, Oral, qHS carvedilol 3.125 mg Tab (carvedilol) ??6.25 mg 2 Tabs, Oral, BID With Meals clopidogrel 75 mg Tab (Plavix) ??75 mg 1 Tabs, Oral, Daily cyanocobalamin 1000 mcg/mL INJ SOLN (cyanocobalamin) ??1,000 mcg 1 mL, IntraMuscular, qMonday cyclobenzaprine 10 mg Tab (cyclobenzaprine) ??10 mg 1 Tabs, Oral, qHS famotidine 20 mg Tab (famotidine) ??20 mg 1 Tabs, Oral, BID finasteride 5 mg Tab (Proscar) ??5 mg 1 Tabs, Oral, Daily FLUoxetine 20 mg Cap (PROzac) ??20 mg 1 Caps, Oral, Daily furosemide 40 mg Tab (Lasix) ??80 mg 2 Tabs, Oral, Daily levothyroxine 25 mcg (0.025 mg) Tab (Synthroid) ??25 mcg 1 Tabs, Oral, Daily loratadine 10 mg Tab (loratadine) ??10 mg 1 Tabs, Oral, Daily tamsulosin 0.4 mg SA Cap (Flomax) ??0.4 mg 1 Caps, Oral, BID CONTINUOUS: (1) diltiazem/0.7%NS 125 mg [5 mg/hr] + Premix 125 mL (dilTIAZem 125 mg [5 mg/hr] + Premix 125 mL) ??125 mL, IV, 5 mL/hr PRN: (3) acetaminophen 325 mg Tab (Tylenol) ??650 mg 2 Tabs, Oral, q4H labetalol 20 mg/4 mL inj (labetalol) ??10 mg 2 mL, IV Push, q1H Interval ondansetron 4 mg/2 mL vial (Zofran) ??4 mg 2 mL, IV Push, q8H ? Results Abnormal Labs ?? Cardiac ??BNP ??407.0 pg/mL (High) ??01/02/2023 14:50 ? General Chemistry ??BUN/Creat Ratio ??22.68 Ratio (High) ??01/02/2023 14:50 ??CO2 ??31.2 mmol/L (High) ??01/02/2023 14:50 ??Glucose Level ??125 mg/dL (High) ??01/02/2023 14:50 ? General Hematology ??Hct ??39.30 % (Low) ??01/02/2023 14:50 ??Hgb ??13.40 gm/dL (Low) ??01/02/2023 14:50 ??RBC ??4.08 x10e6/mcL (Low) ??01/02/2023 14:50 ??RDW-SD ??49.40 Femtoliters (High) ??01/02/2023 14:50 ? Thyroid ??T4 Free ??0.86 ng/dL (Low) ??01/02/2023 14:50 ? Note: Critical results are displayed in red. ? CBC, BMP, Coagulation Trend (last 4 resulted) WBC 7.50 ?? 01/02/2023 ??14:50 ? Hgb 13.40 ??L?? 01/02/2023 ??14:50 ? Hct 39.30 ??L?? 01/02/2023 ??14:50 ? Baso # Auto 0.0 ?? 01/02/2023 ??14:50 ? Baso % Auto 0.5 ?? 01/02/2023 ??14:50 ? Eos # Auto 0.2 ?? 01/02/2023 ??14:50 ? Eos % Auto 2.5 ?? 01/02/2023 ??14:50 ? Lymph # Auto 1.9 ?? 01/02/2023 ??14:50 ? Lymph % Auto 25.9 ?? 01/02/2023 ??14:50 ? [place] # Auto 0.7 ?? 01/02/2023 ??14:50 ? [place] % Auto 9.8 ?? 01/02/2023 ??14:50 ? Neut # Auto 4.6 ?? 01/02/2023 ??14:50 ? Neut % Auto 61.3 ?? 01/02/2023 ??14:50 ? Plt 198 ?? 01/02/2023 ??14:50 ? Glucose Level 125 ??H?? 01/02/2023 ??14:50 ? Sodium 143 ?? 01/02/2023 ??14:50 ? Potassium 3.8 ?? 01/02/2023 ??14:50 ? Chloride 105 ?? 01/02/2023 ??14:50 ? CO2 31.2 ??H?? 01/02/2023 ??14:50 ? BUN 22 ?? 01/02/2023 ??14:50 ? Creatinine 0.97 ?? 01/02/2023 ??14:50 ? BUN/Creat Ratio 22.68 ??H?? 01/02/2023 ??14:50 ? Mg Lvl 1.9 ?? 01/02/2023 ??14:50 ? Calcium 8.7 ?? 01/02/2023 ??14:50 ? BMP, Mg, and Phos (Last Within 24hrs) Sodium: 143 mmol/L (14:50) Potassium: 3.8 mmol/L (14:50) Chloride: 105 mmol/L (14:50) CO2:??31.2 mmol/L??High (14:50) BUN: 22 mg/dL (14:50) Creatinine: 0.97 mg/dL (14:50) Glucose Level:??125 mg/dL??High (14:50) Calcium: 8.7 mg/dL (14:50) Mg Lvl: 1.9 mg/dL (14:50) ? Cardiology Labs BNP:??407 pg/mL??High (01/02/23 14:50:00) Troponin TNIH: 18.36 ng/L (01/02/23 15:48:00) Troponin TNIH: 17.99 ng/L (01/02/23 14:50:00) ? Electronically Signed By: Ezekiel Pacheco MD On: 01.02.2023 18:38 CLEAT BLANKER Electronically Signed On: 01.02.2023 19:07 CLEAT BLANKER Ezekiel Pacheco MD Patient Care team information Care Team Personnel Name: No pcp no family MD, Doctor Member Role: Primary Care Physician Address: Address: [address] [place] [id number] [facility] Name: Moreno MODI, Dawson Tan Position: ED Physician Member Role: ED Physician Address: Address: [address] [place] [id number] [facility] Name: Vee Bydr RN Position: ED Nurse Member Role: ED Nurse Care Team Related Persons Name: DULCE CHANG Address: Home [id number] [place] [address] DR JASWANT [address] [place], [place] [id number]
--- NOTE | 2024-05-21 21:42 | DI.VRAD_ITS ---
PROCEDURE INFORMATION: Exam: CTA Chest With Contrast CTA Abdomen and Pelvis With Contrast Exam date and time: 05/21/2024 7:47 PM Age: 78 years old Clinical indication: Other: HX of aneurysm TECHNIQUE: Imaging protocol: Computed tomographic angiography of the chest with contrast. Exam focused on the arteries. Computed tomographic angiography of the abdomen and pelvis with contrast. Exam focused on the arteries. 3D rendering (Not supervised by radiologist): MIP and/or 3D reconstructed images were created by the technologist. Contrast material: OMNIPAQUE 350; Contrast volume: 100 ml; Contrast route: INTRAVENOUS (IV); COMPARISON: CT THORAX ABD/PEL CTA 10/02/2021 6:41 PM FINDINGS: Tubes, catheters and devices: See gallbladder findings. VASCULATURE: Pulmonary arteries: No pulmonary embolism identified. Aorta: No thoracic aortic aneurysm or dissection. Aneurysmal dilatation of the infrarenal abdominal aorta with a maximum AP dimension of 2.9 cm on image 68 of series 6, stable compared with the prior exam from October 02, 2021. Good contrast opacification along both sides of a short-segment dissection flap in the abdominal aorta inferior to the aneurysm on images 87-94 of series 4, also stable compared with the prior exam. Celiac trunk and mesenteric arteries: Celiac artery and superior mesenteric artery widely patent. Thin thread-like inferior mesenteric artery, not well demonstrated but grossly patent, as seen. Renal arteries: Right and left renal arteries widely patent. Right iliac arteries: Mild atherosclerotic disease in the right pelvic arteries. Right common iliac artery widely patent. Mild-moderate narrowing of the right internal iliac artery. Right external iliac artery widely patent. Right femoral/popliteal arteries: Right common femoral and visualized proximal right superficial femoral arteries widely patent. Left iliac arteries: Mild atherosclerotic disease in the left pelvic arteries. Left common iliac and external iliac arteries widely patent. Mild narrowing of the left internal iliac artery with apparent focal atheromatous plaque on image 108 of series 4. Left femoral/popliteal arteries: Left common femoral and visualized proximal left superficial femoral arteries widely patent. Thyroid: Thyroid gland partially excluded from view but grossly unremarkable through its visualized portion. CHEST: Lungs: 7 mm hazy nodular density in the right upper lobe, also present on the comparison exam from October 02, 2021. Mild dependent atelectasis on the right. Otherwise, no pulmonary consolidation. Pleural spaces: Moderate-sized right pleural effusion. No left pleural effusion. No pneumothorax. Heart: Normal-sized heart. Cardiac pacemaker/AICD implanted in the left anterior chest wall with leads extending into the right atrium and coronary sinus, partially obscured by motion. Fatty infiltration of the interatrial septum with a maximum septal thickness of 1.5 cm. ABDOMEN AND PELVIS: Liver: Within the limits of the exam, no focal hepatic lesion demonstrated. Small amount of perihepatic fluid. Gallbladder and biliary ducts: Percutaneous, apparently transhepatic, surgical drain coiled distally in the gallbladder fossa. Gallbladder not confidently identified. Surgically absent? Collapsed around the drainage catheter? Trace fluid and a single focus of gas in the gallbladder fossa. Indwelling biliary stent extending from the extrahepatic common bile duct into the proximal duodenal. Small foci of intrahepatic pneumobilia in the lateral left hepatic segment. Pancreas: Normal appearing pancreas. Spleen: Normal appearing spleen. Adrenal glands: Normal appearing adrenal glands. Kidneys and ureters: Normal appearing kidneys. No hydronephrosis. No obstructing ureteral stones. Stomach and bowel: Stomach partially decompressed. No small bowel dilatation to suggest obstruction. Colon well evacuated of fecal material. Fluid in the proximal colon suspicious for diarrhea or impending diarrhea. No evidence of diverticulitis or colitis. Appendix: Appendix not identified, obscured if present. Correlation with surgical history recommended. Intraperitoneal space: No gross ascites or free air. Small amount of free fluid in the right upper quadrant in the perihepatic space and in the gallbladder fossa. Small focus of gas in the gallbladder fossa, probably either representing a small focus of catheter related pneumoperitoneum or a small focus of pneumobilia. Urinary bladder: Right bladder dome partially herniated into the right inguinal canal. Reproductive: Normal-appearing prostate gland and seminal vesicles. Lymph nodes: Mildly enlarged subcarinal lymph node measuring 1.9 cm x 1.1 cm on image 326 of series 7. No pathologically enlarged mesenteric, retroperitoneal, or pelvic sidewall lymph nodes. Bones/joints: No acute fracture seen among the bones of the chest, abdomen, or pelvis. Spinal degenerative change with anterior osteophytes at multiple levels. Soft tissues: No gross soft tissue mass or fluid collection seen in the chest wall. Diastasis recti. Apparent prior anterior abdominal wall repair. Small fat containing left inguinal region hernia. Moderate-large right inguinal hernia containing mesenteric fat, a portion of the sigmoid colon, and a portion of the right bladder dome. IMPRESSION: 1. Percutaneous, apparently transhepatic, surgical drain coiled distally in the gallbladder fossa. Gallbladder not confidently identified, either surgically absent in the setting of prior cholecystectomy with an indwelling surgical drain or collapsed around the distal catheter in the setting of a cholecystostomy. Correlation with procedure history is recommended. Trace fluid in the gallbladder fossa and a small amount of perihepatic fluid. Small focus of gas in the gallbladder fossa, probably either a small focus of catheter related free air or a small focus of pneumobilia. Indwelling biliary stent extending from the extrahepatic common bile duct into the proximal duodenal. Small foci of intrahepatic pneumobilia in the lateral left hepatic segment. 2. Moderate-sized right pleural effusion. 3. Colon well evacuated of fecal material. Fluid in the proximal colon suspicious for diarrhea or impending diarrhea. No evidence of diverticulitis or colitis. 4. Aneurysmal dilatation of the infrarenal abdominal aorta with a maximum AP dimension of 2.9 cm, stable compared with the prior exam from October 02, 2021. Good contrast opacification along both sides of a short-segment dissection flap in the abdominal aorta distal to the aneurysm, also stable compared with the prior exam. 5. Moderate-large right inguinal hernia containing mesenteric fat, a portion of the sigmoid colon, and a portion of the right bladder dome, increased in size since the prior exam from 2020. No evidence of superimposed obstruction. Dictated and Authenticated by: Olvin Garcia MD. Ordering:FERNANDEZ Bolivar MD
[2024-05-21 23:00] LABS: Troponin I < 50 ng/L (< or =60)
--- NOTE | 2024-05-21 23:15 | W.ED.GENAD ---
Discharge Plan Discharge Details Chief Complaint: Chest Pain Primary Care Provider: Deepa Oliva V ED Provider: Osmel Terry [place] Meds and New Rx's Prescriptions: No Action tamsulosin 0.4 MG capsule 0.8 mg PO DAILY aspirin [Aspir-Low] 81 MG tablet,delayed release (DR/EC) 81 mg PO DAILY AM furosemide [Lasix] 80 MG tablet 80 mg PO DAILY ascorbic acid (vitamin C) [Vitamin C With Dejah Hips] 1,000 MG tablet 1 tab PO DAILY saw palmetto 500 MG capsule 500 mg PO DAILY cefpodoxime 200 mg tablet 200 mg PO BID ferrous sulfate 324 mg (65 mg iron) Tablet,Delayed Release (Dr/Ec) 324 mg PO DAILY Rx Instructions: ferrous gluconate magnesium oxide 400 MG tablet 400 mg PO DAILY Qty: 30 0RF fluoxetine [Prozac] 20 mg Capsule 20 mg PO DAILY levothyroxine [Synthroid] 50 mcg Tablet 25 mcg PO DAILY pantoprazole 20 mg Tablet,Delayed Release (Dr/Ec) 40 mg PO DAILY atorvastatin 40 mg Tablet 40 mg PO DAILY Rx Instructions: evening clopidogrel 75 mg Tablet 75 mg PO DAILY nitroglycerin [Nitrostat] 0.4 mg Tablet, Sublingual 0.4 mg SUBLINGUAL Q5-15M PRN polyethylene glycol 3350 17 gram powder in packet 17 g PO DAILY Patient Comments: MIX 1 PACKET WITH LIQUID AND TAKE BY MOUTH ONCE DAILY loratadine 10 mg Tablet 10 mg PO DAILY therapeutic multivitamin Tablet 1 tab PO DAILY cyanocobalamin (vitamin B-12) 1,000 mcg/mL Solution 1,000 mcg SUBCUT QWEEK carvedilol 12.5 mg tablet 12.5 mg PO BID ondansetron 4 mg tablet,disintegrating 4 mg PO PRN Saccharomyces boulardii [Florastor] 250 mg Capsule 250 mg PO BID metoprolol succinate 50 mg Tablet Extended Release 24 Hr 50 mg PO 1XD ropinirole 0.5 mg tablet 0.5 mg PO 3XD Patient Comments: Take 1 tablet by mouth three times a day Entresto 24-26 mg Tablet 12 - 13 tab PO 2XD Rx Instructions: breaks 1 tab in half, takes halves at morning and night. HPI General Date/Time Provider Initiated Documentation: 05/21/24 19:23. HPI Narrative: MDM This is an overall well-appearing afebrile not tachycardic 78-year-old male with significant cardiac history and history of aortic aneurysm concerning for the possibility of dissection for which patient will undergo emergent CTA chest abdomen pelvis. ECG nonischemic however will obtain 2 sets of troponins given recent onset symptoms. No pain out of proportion to suggest necrotizing soft tissue infection. No dysuria nor frequency to suggest UTI. I considered sepsis however the patient was not hypotensive nor febrile so I did not draw blood cultures check a lactate nor treat empirically with antibiotics. No cough to suggest pneumonia and no fevers. No trauma and equal breath sounds so doubt pneumothorax. No vomiting and soft abdomen so doubt pancreatitis. Patient did have mildly prolonged QTc on arrival at 506 ms for which she received 2 g of magnesium empirically. No falls or trauma to head so doubt intracranial hemorrhage I did not feel that the patient required CT head. ECG showing no acute injury pattern. 11:14 PM Basic metabolic panel showing no JAME. Mild hyperglycemia and mild anion gap acidosis but normal bicarbonate??not consistent with DKA. Negative troponin. CBC lacks anemia thrombocytopenia and leukocytosis. Normal magnesium. CTA chest abdomen pelvis showing stable infrarenal abdominal aorta no acute changes. Patient does have moderate to large right inguinal hernia. No signs of obstruction. Patient has a moderate right-sided pleural effusion. He is having no cough to suggest pneumonia. He has a soft nontender abdomen. I am waiting to hear back from the [employer] support representative. If his AICD interrogation is reassuring he is appropriate for discharge as he has received 2 troponins. 12:15 AM I signed patient out to the overnight provider pending consultation with [employer] to ensure that there is not any significant dysrhythmia that might have caused the patient's AICD to fire. HPI This is a 78-year-old male with history of pancreatitis BPH CHF and coronary artery disease arriving from upstairs in the hospital where he was a visitor seeing his . Patient was found to be leaning on the wall upstairs. He complained of chest pain shortness of breath which was sudden in onset. He feels as if his AICD DC may have fired. He feels weak and short of breath. Unable to obtain additional history secondary to the acuity of the patient's presentation. Exam General: Chronically ill-appearing in no acute distress speaking in complete sentences. Head: Normocephalic, atraumatic. Eye: Extraocular eye movements intact. No conjunctival injection. No scleral icterus. Ear, nose, mouth, throat: Grossly normal inspection. Normal voice, handling secretions normally. Neck: Trachea midline. Cardiovascular: Well-perfused distal extremities. Regular rate and rhythm Respiratory: Nonlabored respiration. Decreased breath sounds bilateral bases Gastrointestinal: Nondistended abdomen. Obese nontender Musculoskeletal: No significant lower extremity pitting edema. Moving all 4 extremities spontaneously. Skin: Normal for age and race, grossly normal temperature and turgor. No acute rash. Neurologic: Alert and appropriate, no apparent acute deficits. Psychiatric: Mood and manner are appropriate. Grooming and personal hygiene are appropriate. Related Data Home Medications Medication Instructions Recorded Confirmed aspirin 81 mg tablet,delayed 81 mg PO DAILY AM 09/01/13 06/12/23 release (Aspir-Low) tamsulosin 0.4 mg capsule 0.8 mg PO DAILY 09/01/13 06/12/23 furosemide 80 mg tablet (Lasix) 80 mg PO DAILY 11/11/13 06/12/23 ascorbic acid (vitamin C) 1,000 mg 1 tab PO DAILY 01/21/15 06/12/23 tablet (Vitamin C With Dejah Hips) saw palmetto 500 mg capsule 500 mg PO DAILY 01/21/15 11/02/21 magnesium oxide 400 mg (241.3 mg 400 mg PO DAILY ##30 03/28/17 10/13/21 magnesium) tablet atorvastatin 40 mg tablet 40 mg PO DAILY 05/13/21 06/12/23 clopidogrel 75 mg tablet 75 mg PO DAILY 05/13/21 11/02/21 fluoxetine 20 mg capsule (Prozac) 20 mg PO DAILY 05/13/21 06/12/23 levothyroxine 50 mcg tablet 25 mcg PO DAILY 05/13/21 06/12/23 (Synthroid) nitroglycerin 0.4 mg sublingual 0.4 mg sublingual Q5-15M PRN 05/13/21 06/12/23 tablet (Nitrostat) pantoprazole 20 mg tablet,delayed 40 mg PO DAILY 05/13/21 06/12/23 release loratadine 10 mg tablet 10 mg PO DAILY 08/03/21 06/12/23 polyethylene glycol 3350 17 gram 17 g PO DAILY 08/03/21 11/02/21 oral powder packet therapeutic multivitamin 1 tab PO DAILY 08/03/21 06/12/23 cyanocobalamin (vitamin B-12) 1,000 mcg subcut QWEEK 08/05/21 06/12/23 1,000 mcg/mL injection solution Saccharomyces boulardii 250 mg 250 mg PO BID 09/12/21 10/02/21 capsule (Florastor) carvedilol 12.5 mg tablet 12.5 mg PO BID 09/12/21 11/02/21 ondansetron 4 mg disintegrating 4 mg PO PRN 09/12/21 tablet cefpodoxime 200 mg tablet 200 mg PO BID 10/02/21 11/02/21 ferrous sulfate 324 mg (65 mg 324 mg PO DAILY 10/02/21 06/12/23 iron) tablet,delayed release metoprolol succinate 50 mg 50 mg PO 1XD 06/12/23 06/12/23 tablet,extended release 24 hr ropinirole 0.5 mg tablet 0.5 mg PO 3XD 06/12/23 06/12/23 sacubitril 24 mg-valsartan 26 mg 12 - 13 tab PO 2XD 06/12/23 06/12/23 tablet (Entresto) Previous Rx's Medication Instructions Recorded magnesium oxide 400 mg (241.3 mg 400 mg PO DAILY ##30 03/28/17 magnesium) tablet Allergies Allergy/AdvReac Type Severity Reaction Status Date / Time Penicillins Allergy Severe Anaphylaxsi Unverified 05/21/24 19:21 s donepezil [From Aricept] Allergy Mild mild per Unverified 05/21/24 19:21 pcp chart adenosine Allergy Unknown Unverified 05/21/24 19:21 metformin [From Glucophage] Allergy per pcp Unverified 05/21/24 19:21 chart--moderate codeine AdvReac Intermediate Dizziness/L Unverified 05/21/24 19:21 ightheade General Stated Complaint: Chest Pain DANIEL: 3 Course Vital Signs Vital signs: Vital Signs Temperature 36.3 C L 05/21/24 19:18 Pulse 91 H 05/21/24 19:18 Respiratory Rate 18 05/21/24 19:18 Blood Pressure 156/86 H 05/21/24 19:18 Pulse Oximetry 99 05/21/24 19:18 Temperature 36.3 C L 05/21/24 19:18 Pulse 69 05/21/24 21:46 Pulse 70 05/21/24 21:46 Respiratory Rate 15 05/21/24 21:46 Respiratory Effort Short of Breath 05/21/24 19:21 Blood Pressure 118/60 05/21/24 21:46 Blood Pressure Mean 79 05/21/24 21:46 Blood Pressure Position Sitting 05/21/24 19:18 Pulse Oximetry 91 L 05/21/24 21:46 Oxygen Delivery Method Room Air 05/21/24 19:18 Oxygen Flow Rate 0 05/21/24 19:18 Lab/Test Results Lab/Test Results: Laboratory Tests Range/Units 05/21/24 05/21/24 05/21/24 19:28 19:38 22:29 WBC (4.4-10.8) 10^3/uL 9.18 RBC (4.36-5.78) 10^6/uL 4.46 Hgb (13.5-17.5) g/dL 15.2 Hct (40.0-50.0) % 44.3 MCV (80-95) fL 99 H MCH (27.0-33.0) pg 34.1 H MCHC (32.0-36.0) % 34.3 RDW (11.8-14.1) % 12.4 Plt Count (130-400) 10^3/uL 245 MPV (8.0-11.0) fL 9.5 Immature Gran % % 0.5 Neutrophils % % 65.1 Lymphocytes % % 25.2 Monocytes % % 7.5 Eosinophils % % 1.4 Basophils % % 0.3 Nucleated RBC % (0.0-0.3) % 0.0 Absolute Neutrophils (1.2-6.7) 10^3/uL 5.97 Absolute Lymphocytes (1.2-3.4) 10^3/uL 2.31 Absolute Monocytes (0.1-0.8) 10^3/uL 0.69 Absolute Eosinophils (0.0-0.7) 10^3/uL 0.13 Absolute Basophils (0.0-0.2) 10^3/uL 0.03 Sodium (136-145) mmol/L 138 Potassium (3.5-5.1) mmol/L 3.4 L Chloride (98-107) mmol/L 99 Carbon Dioxide (21.0-32.0) mmol/L 25.4 Anion Gap (3-11) mmol/L 13.6 H BUN (7-18) mg/dL 16 Creatinine (0.70-1.30) mg/dL 1.2 Est GFR (CKD-EPI 2020) (mL/min/1.73m2) 61.52 Glucose (74-106) mg/dL 141 H Calcium (8.5-10.1) mg/dL 9.8 Magnesium (1.8-2.4) mg/dL 2.2 Troponin I (< or =60) ng/L < 50 < 50 ABO/Rh O Negative Antibody Screen NEGATIVE Medical Decision Making Quality:SDOH Health Related Social Needs: No Data to Display PFSH All Active Problems (Updated 07/13/23 @ 00:04 by ADRIEL SAMUEL) Elevated lipase (Acute) Chest pain (Acute) Abdominal aortic aneurysm dissection (Acute) Left-sided chest pain (Acute) Abdominal pain (Acute) Acute cholecystitis (Acute) Sepsis (Acute) Weakness (Acute) Hepatic abscess (Acute) Orthostatic hypotension (Acute) History of cholecystectomy (Chronic) Contusion of rib (Acute) Pancreatitis (Chronic) Discharge planning issues (Acute) DVT prophylaxis (Acute) BPH (benign prostatic hyperplasia) (Chronic) Pulmonary hypertension (Acute) COPD (chronic obstructive pulmonary disease) (Chronic) Hypertension (Chronic) Hyperlipidemia (Chronic) Diabetes (Chronic) Allergy to codeine (Chronic) Allergy to penicillin (Chronic) CAD (coronary artery disease) (Chronic) Remote history of coronary disese, status post stent some 15 years ago, no history of [place]. CHF (congestive heart failure) (Chronic 10/21/13) Medical History Apical mural thrombus Atrial fib/flutter, transient Mena's palsy CAD (coronary artery disease) Cardiomyopathy CHF (congestive heart failure) COPD (chronic obstructive pulmonary disease) DM (diabetes mellitus) HTN (hypertension) Hypothyroidism Obesity (BMI 30.0-34.9) ORLIN (obstructive sleep apnea) Renal insufficiency Surgical History Appendectomy Colonoscopy - MAC (08/04/16) Hx of cardiac cath in [place] in the s - unknown intervention [facility] [place] - clean coronaries, severe pulmonary hypertension, no prior stent found Family History Mother Cervical cancer Other Colon cancer Social History Smoking/Tobacco Use Status: Former Tobacco Use Smoking risk assessment performed?: Yes Drug use: Never Substance use type: does not use Do you feel safe at home: Yes Do you feel safe in your relationship?: Yes
[2024-05-22] VITALS (17 sets, daily range): BP systolic 127–149; BP diastolic 52–88; PULSE 61–88; RESP 11–25; O2SAT 86–97
--- NOTE | 2024-05-22 00:16 | ED.PROG_ITS ---
Date of service: 05/22/24 Time of Service: 00:16 Medical Decision Making Quality:[facility] Health Related Social Needs: No Data to Display Sign Out Sign Out Data: Sign Out Comment: Please follow-up with [employer] rep concerning AICD. If patient had significant dysrhythmia he may or may not require cardiology consultation from [facility] [place]. He has been written with contingent discharge instructions. Last updated by Osmel Terry MD at 05/22/24 00:16 Discharge Plan Discharge Details Chief Complaint: Chest Pain Clinical Impression: Breath shortness Primary Care Provider: Deepa Oliva V ED Provider: Osmel Terry Home Meds and New Rx's Prescriptions: Continued tamsulosin 0.4 MG capsule 0.8 mg PO DAILY aspirin [Aspir-Low] 81 MG tablet,delayed release (DR/EC) 81 mg PO DAILY AM furosemide [Lasix] 80 MG tablet 80 mg PO DAILY ascorbic acid (vitamin C) [Vitamin C With Dejah Hips] 1,000 MG tablet 1 tab PO DAILY saw palmetto 500 MG capsule 500 mg PO DAILY cefpodoxime 200 mg tablet 200 mg PO BID ferrous sulfate 324 mg (65 mg iron) Tablet,Delayed Release (Dr/Ec) 324 mg PO DAILY Rx Instructions: ferrous gluconate magnesium oxide 400 MG tablet 400 mg PO DAILY Qty: 30 0RF fluoxetine [Prozac] 20 mg Capsule 20 mg PO DAILY levothyroxine [Synthroid] 50 mcg Tablet 25 mcg PO DAILY pantoprazole 20 mg Tablet,Delayed Release (Dr/Ec) 40 mg PO DAILY atorvastatin 40 mg Tablet 40 mg PO DAILY Rx Instructions: evening clopidogrel 75 mg Tablet 75 mg PO DAILY nitroglycerin [Nitrostat] 0.4 mg Tablet, Sublingual 0.4 mg SUBLINGUAL Q5-15M PRN polyethylene glycol 3350 17 gram powder in packet 17 g PO DAILY Patient Comments: MIX 1 PACKET WITH LIQUID AND TAKE BY MOUTH ONCE DAILY loratadine 10 mg Tablet 10 mg PO DAILY therapeutic multivitamin Tablet 1 tab PO DAILY cyanocobalamin (vitamin B-12) 1,000 mcg/mL Solution 1,000 mcg SUBCUT QWEEK carvedilol 12.5 mg tablet 12.5 mg PO BID ondansetron 4 mg tablet,disintegrating 4 mg PO PRN Saccharomyces boulardii [Florastor] 250 mg Capsule 250 mg PO BID metoprolol succinate 50 mg Tablet Extended Release 24 Hr 50 mg PO 1XD ropinirole 0.5 mg tablet 0.5 mg PO 3XD Patient Comments: Take 1 tablet by mouth three times a day Entresto 24-26 mg Tablet 12 - 13 tab PO 2XD Rx Instructions: breaks 1 tab in half, takes halves at morning and night. Discharge Instructions Additional Instructions: You were seen in the emergency department for your shortness of breath. Your CAT scan showed no sign of any rupture of your aorta. Your blood work showed no sign of heart attack. Please follow-up with primary care provider next week. Please return to the emergency department if you pass out or develop chest pain.
--- NOTE | 2024-05-22 00:18 | ED.PROG_ITS ---
Date of service: 05/22/24 Time of Service: 00:19 Medical Decision Making Quality:[facility] Health Related Social Needs: No Data to Display Sign Out Sign Out Data: Sign Out Comment: Please follow-up with [employer] rep concerning AICD. If patient had significant dysrhythmia he may or may not require cardiology consultation from [facility] [place]. He has been written with contingent discharge instructions. Last updated by Osmel Terry MD at 05/22/24 00:16 Discharge Plan Discharge Details Chief Complaint: Chest Pain Clinical Impression: Breath shortness Primary Care Provider: Deepa Oliva V ED Provider: Osmel Terry Home Meds and New Rx's Prescriptions: Continued tamsulosin 0.4 MG capsule 0.8 mg PO DAILY aspirin [Aspir-Low] 81 MG tablet,delayed release (DR/EC) 81 mg PO DAILY AM furosemide [Lasix] 80 MG tablet 80 mg PO DAILY ascorbic acid (vitamin C) [Vitamin C With Dejah Hips] 1,000 MG tablet 1 tab PO DAILY saw palmetto 500 MG capsule 500 mg PO DAILY cefpodoxime 200 mg tablet 200 mg PO BID ferrous sulfate 324 mg (65 mg iron) Tablet,Delayed Release (Dr/Ec) 324 mg PO DAILY Rx Instructions: ferrous gluconate magnesium oxide 400 MG tablet 400 mg PO DAILY Qty: 30 0RF fluoxetine [Prozac] 20 mg Capsule 20 mg PO DAILY levothyroxine [Synthroid] 50 mcg Tablet 25 mcg PO DAILY pantoprazole 20 mg Tablet,Delayed Release (Dr/Ec) 40 mg PO DAILY atorvastatin 40 mg Tablet 40 mg PO DAILY Rx Instructions: evening clopidogrel 75 mg Tablet 75 mg PO DAILY nitroglycerin [Nitrostat] 0.4 mg Tablet, Sublingual 0.4 mg SUBLINGUAL Q5-15M PRN polyethylene glycol 3350 17 gram powder in packet 17 g PO DAILY Patient Comments: MIX 1 PACKET WITH LIQUID AND TAKE BY MOUTH ONCE DAILY loratadine 10 mg Tablet 10 mg PO DAILY therapeutic multivitamin Tablet 1 tab PO DAILY cyanocobalamin (vitamin B-12) 1,000 mcg/mL Solution 1,000 mcg SUBCUT QWEEK carvedilol 12.5 mg tablet 12.5 mg PO BID ondansetron 4 mg tablet,disintegrating 4 mg PO PRN Saccharomyces boulardii [Florastor] 250 mg Capsule 250 mg PO BID metoprolol succinate 50 mg Tablet Extended Release 24 Hr 50 mg PO 1XD ropinirole 0.5 mg tablet 0.5 mg PO 3XD Patient Comments: Take 1 tablet by mouth three times a day Entresto 24-26 mg Tablet 12 - 13 tab PO 2XD Rx Instructions: breaks 1 tab in half, takes halves at morning and night. Discharge Instructions Additional Instructions: You are seen in the emergency department for your shortness of breath. Your CAT scan showed no sign of a rupture of your aortic aneurysm and no blood clots in your lungs. Your blood work showed no sign of a heart attack. Please return to the emergency department if you develop fevers worsening chest pain or have any other concerns. Otherwise please follow-up with your primary care provider next week.
--- NOTE | 2024-05-22 00:43 | ED.PROG_ITS ---
Date of service: 05/22/24 Time of Service: 00:00 Medical Decision Making This patient was signed out to me. Please see previous notes for H&P and initial eval. In brief, 78yo M with signifcant prior hx of CAD, aortic aneurysm presenting for chest pain and shortness of breath, felt like his AICD shocked him. Reassuring ED workup including negative troponins, stable CTA chest. Does not appear that AICD fired based on [employer] report. Signed out pending response from [employer] rep; if not AICD firing and no concerning arrhythmia would discharge home (tentative discharge instructions written). Otherwise would speak with cardiology regarding reccs. Spoke with [employer] rep who confirmed no AICD firing. Report reviewed by myself consistent with this. On reassessment patient well appearing, reassuring vital signs, denies complaints including chest pain or shortness of breath. Patient feels comfortable going home. Discharged to outpatient followup with PCP; discharge instructions and return precautions were reviewed with patient who verbalized understanding. All questions were answered and he is in full agreement with the plan. Quality:[facility] Health Related Social Needs: No Data to Display Sign Out Sign Out Data: Sign Out Comment: Please follow-up with [employer] rep concerning AICD. If patient had significant dysrhythmia he may or may not require cardiology consultation from [facility] [place]. He has been written with contingent discharge instructions. Last updated by Osmel Terry MD at 05/22/24 00:16 Discharge Plan Disposition Patient Disposition: Home Condition: Good Discharge Details Clinical Impression: Breath shortness Primary Care Provider: Deepa Oliva V ED Provider: Ela Vargas Home Meds and New Rx's Prescriptions: Continued tamsulosin 0.4 MG capsule 0.8 mg PO DAILY aspirin [Aspir-Low] 81 MG tablet,delayed release (DR/EC) 81 mg PO DAILY AM furosemide [Lasix] 80 MG tablet 80 mg PO DAILY ascorbic acid (vitamin C) [Vitamin C With Dejha Hips] 1,000 MG tablet 1 tab PO DAILY saw palmetto 500 MG capsule 500 mg PO DAILY cefpodoxime 200 mg tablet 200 mg PO BID ferrous sulfate 324 mg (65 mg iron) Tablet,Delayed Release (Dr/Ec) 324 mg PO DAILY Rx Instructions: ferrous gluconate magnesium oxide 400 MG tablet 400 mg PO DAILY Qty: 30 0RF fluoxetine [Prozac] 20 mg Capsule 20 mg PO DAILY levothyroxine [Synthroid] 50 mcg Tablet 25 mcg PO DAILY pantoprazole 20 mg Tablet,Delayed Release (Dr/Ec) 40 mg PO DAILY atorvastatin 40 mg Tablet 40 mg PO DAILY Rx Instructions: evening clopidogrel 75 mg Tablet 75 mg PO DAILY nitroglycerin [Nitrostat] 0.4 mg Tablet, Sublingual 0.4 mg SUBLINGUAL Q5-15M PRN polyethylene glycol 3350 17 gram powder in packet 17 g PO DAILY Patient Comments: MIX 1 PACKET WITH LIQUID AND TAKE BY MOUTH ONCE DAILY loratadine 10 mg Tablet 10 mg PO DAILY therapeutic multivitamin Tablet 1 tab PO DAILY cyanocobalamin (vitamin B-12) 1,000 mcg/mL Solution 1,000 mcg SUBCUT QWEEK carvedilol 12.5 mg tablet 12.5 mg PO BID ondansetron 4 mg tablet,disintegrating 4 mg PO PRN Saccharomyces boulardii [Florastor] 250 mg Capsule 250 mg PO BID metoprolol succinate 50 mg Tablet Extended Release 24 Hr 50 mg PO 1XD ropinirole 0.5 mg tablet 0.5 mg PO 3XD Patient Comments: Take 1 tablet by mouth three times a day Entresto 24-26 mg Tablet 12 - 13 tab PO 2XD Rx Instructions: breaks 1 tab in half, takes halves at morning and night. Discharge Instructions Additional Instructions: You are seen in the emergency department for your shortness of breath. Your CAT scan showed no sign of a rupture of your aortic aneurysm and no blood clots in your lungs. Your blood work showed no sign of a heart attack. Please return to the emergency department if you develop fevers worsening chest pain or have any other concerns. Otherwise please follow-up with your primary care provider next week. Referrals: Deepa Oliva MD [Primary Care Provider] -
== END 2024-05-22 02:44 | disposition home or self-care (01) ==
PROVIDERS: Emergency Medicine; Emergency Provider Student in an Organized Health Care Education/Training Program; PCP Family Medicine
DX: R06.02 Shortness of breath (principal); R07.9 Chest pain, unspecified
CPT/HCPCS: 00123; 36415; 71275; 80048; 86850; 86900; 86901; 93005; 96365; 96366; 99285; 74174; 83735; 84484; 85025; 93010; 99284; J3475; J3490